=== PATIENT | male | born 1955 | race Caucasian/White ===

== ENCOUNTER → 2017-12-18 06:16 | Outpatient (CLI) | payer OTHER, SELFPAY ==
--- NOTE | 2017-12-18 12:19 | STRESSREP ---
Stress Test Report Exercise myocardial perfusion stress test. 62-year-old man with a history of coronary artery disease and chest pain. Stress protocol: Resting EKG demonstrates sinus rhythm with rate of 61 bpm. Resting blood pressure is 162/90 mmHg. The patient exercised according to regular Donnie protocol for total duration of 11 minutes and 30 seconds. Patient completed 2 minutes and 30 seconds to stage IV of the Donnie protocol. The maximum heart rate attained was 136 bpm which was 86% of maximum predicted heart rate the maximum workload attained was 13.5 metabolic equivalents. Patient maintained sinus rhythm throughout the recording with occasional premature atrial complexes noted. Occasional blocked atrial complexes noted also. At rest there were no ST or T-wave changes noted suggest ischemia peak exercise upsloping ST changes only were noted with normally the criteria for ischemia. Patient however complained of 3-4/10 chest tightness noted during exertion which dissipated on rest. The resting blood pressure is 162/90 with a peak blood pressure 180/84. Rate pressure product was 23,100. Myocardial perfusion protocol. 14.2 mCi of technetium 99m sestamibi was injected at rest. The patient exercised for 11 minutes and 30 seconds attaining 86% maximum predicted heart rate and a workload of 13.5 mets. At peak exercise 44.5 mCi of technetium 99m sestamibi was injected stress images were obtained stress and rest images were reconstructed and compared in the short axis vertical long and horizontal long axis. Gated images were also obtained. Perfusion SPECT analysis: There is a medium-sized defect noted in the mid to distal anteroseptal wall as well as the inferoseptal wall. There is a defect also noted in the apex of medium size. The resting images demonstrate improvement in the apex and distal anteroseptal wall suggestive of ischemia in this territory. Gated SPECT analysis: The gated ejection fraction is noted to be 60%. There is evidence of apical hypokinesis noted. Conclusion: Exercise myocardial perfusion stress test with evidence of distal anteroseptal and apical ischemia. Small apical infarct noted. Clinical angina noted at a high workload with excellent functional capacity..
== END ==
PROVIDERS: Family Provider Family Medicine; PCP Family Medicine; Visit Provider Family Medicine
DX: R07.89 Other chest pain (principal)
CPT/HCPCS: 78452; 93017; A9500; A4216

== ENCOUNTER → 2018-01-21 07:53 | Outpatient (CLI) | payer OTHER, SELFPAY ==
--- NOTE | 2018-01-21 08:13 | RAD_ITS ---
STUDY: X-RAY CHEST REASON FOR EXAM: Male, 62 years old. Chest discomfort. TECHNIQUE: PA and lateral views of the chest. COMPARISON: None. FINDINGS: The lungs are clear and expanded. There is no demonstrated pleural abnormality. Normal size heart. Normal mediastinum and dylan. Normal visualized pulmonary arteries. There is atherosclerotic tortuosity of the aortic arch and descending thoracic aorta. Normal visualized thoracic spine. Normal visualized ribs, clavicles, and shoulders. There is no demonstrated abnormality of the visualized soft tissue structures of the upper abdomen. RAD/Chest PA and Lateral IMPRESSION: No acute abnormality is seen. Electronically Signed: Enrrique Dunaway MD at 9:24 EDT Tel [phone], Service support ,
[2018-01-21 08:53] LABS: Hematocrit 44.4 % (40-54); Hemoglobin 15.5 g/dl (13.0-16.5); Mean Corp Hgb Conc 34.9 g/gl (32-36); Mean Corpuscular Volume 88.8 fL (80-94); Mean Platelet Vol. 9.7 fl (6.2-12.0); Platelet Count 177 K/mm3 (150-450); RBC Distribution Width CV 12.6 % (11.6-14.6); RBC Distribution Width SD 40.4 fl (35.1-43.9); White Blood Count 4.4 K/mm3 (4.4-11.0)
[2018-01-21 08:55] LABS: Scan Indicated on CBC? Y/N NO
[2018-01-21 09:26] LABS: Anion Gap 8 (5-15); BUN 13 mg/dL (7-18); Calcium,Total 8.7 mg/dL (8.5-10.1); Chloride 106 mmol/L (98-107); Creatinine, Serum 0.72 mg/dL (0.70-1.30); EST Glomerular Filtration Rate 117 mL/min (>60); Est Glom Filt Rate - Afr Amer 141 mL/min (>60); Glucose 159 mg/dL (74-106); Potassium 4.3 mmol/L (3.5-5.1); Sodium Level 143 mmol/L (136-145)
[2018-01-21 09:31] LABS: Vitamin D,25 Hydroxy 45.6 ng/mL (29.95-100.01)
[2018-01-21 09:33] LABS: Cholesterol 170 mg/dL (200); High Density Lipoprotein 53 mg/dL; Triglycerides 63 mg/dL; Very Low Density Lipoprotein 13 mg/dL (5-40)
[2018-01-21 09:35] LABS: Phenytoin (Dilantin) Level 6.8 mL (10.0-20.0)
[2018-01-21 17:29] LABS: Absolute Lymphocyte Count 1.57 X10^3/ul (0.83-4.51); Absolute Neutrophil Count 2.6 X10^3/uL (2.0-7.7); Basophil# 0.04 X10^3/uL; Basophil% 0.8 % (0-1); Eosinophil# 0.48 X10^3/uL; Eosinophils% 9.6 % (0-5); Hematocrit 44.1 % (40-54); Hemoglobin 15.3 g/dl (13.0-16.5); Lymphocyte # 1.57 X10^3/ul (4.0); Lymphocyte % 31.5 % (19-41); Mean Corp Hgb Conc 34.7 g/gl (32-36); Mean Corpuscular Hgb 30.7 pg (27.0-32.0); Mean Corpuscular Volume 88.4 fL (80-94); Mean Platelet Vol. 9.8 fl (6.2-12.0); Monocyte# 0.34 X10^3/uL; Monocyte% 6.8 % (0-10); Neutrophil # 2.55 X10^3/uL (2.7-7.7); Neutrophil % 51.3 % (47-70); Platelet Count 175 K/mm3 (150-450); RBC Distribution Width CV 12.7 % (11.6-14.6); RBC Distribution Width SD 40.8 fl (35.1-43.9); Red Blood Count 4.99 M/mm3 (4.6-6.2)
[2018-01-21 17:55] LABS: POSITIVE COUNT NO; POSITIVE DIFFERENTIAL NO; POSITIVE MORPHOLOGY NO
== END ==
PROVIDERS: Family Provider Family Medicine; PCP Family Medicine; Visit Provider Internal Medicine Cardiovascular Disease
DX: Z01.810 Encounter for preprocedural cardiovascular examination (principal); R07.9 Chest pain, unspecified; R94.39 Abnormal result of other cardiovascular function study; E11.9 Type 2 diabetes mellitus without complications; R06.00 Dyspnea, unspecified; I25.9 Chronic ischemic heart disease, unspecified; E55.9 Vitamin D deficiency, unspecified
CPT/HCPCS: 36415; 71046; 80048; 80061; 80185; 82306; 85025; 85027; 85610

== ENCOUNTER → 2018-01-23 06:48 | Day surgery (SDC) | payer OTHER, SELFPAY ==
[2018-01-22 09:05] VITALS: BMI 27.1
--- NOTE | 2018-01-23 08:47 | CASEMGMT ---
According to [employer] website, the following are in-network tertiary facilities: [facility], [facility], [facility], [facility], [facility], [facility], [facility], and . Lilliana GUILLEN CM
--- NOTE | 2018-01-23 08:50 | CL.D_ITS ---
Patient Name: GISSELL AMBRIZ Study Date: 01/23/2018 Performing: Bernardo Louis MD Ht: 66.14 inches 168 cm : 1955 Wt: 167.55 lbs 76 kg Age: 62 Gender: male BSA: 1.86 PROCEDURE(S) PERFORMED FT73-BIB/COR/LV CLINICAL PROFILE AND INDICATIONS Indications: Suspected CAD Heart Failure: None Stress/Imaging Stress Test w/SPECT MPI: Yes Result: Positive Intermediate RiskStress Test with SP ECT MPI: Positive Intermediate Risk Angina Classification Anginal Classification w/in 2 Weeks: CCS II CAD Presentations: Stable angina. CONCLUSIONS Totally occluded left anterior descending artery with severe disease involving the first and second d iagonal branches and moderate disease involving the circumflex artery. With preserved ejection fract ion. RECOMMENDATIONS Consider PCI with multiple vessel intervention including a chronically occluded left anterior descend ing artery or coronary artery bypass surgery DESCRIPTION OF PROCEDURE The patient arrived to the procedure lab. The risks and benefits of the procedure as well as a full d escription of our services here and current unavailability of surgical backup were fully explained to the patient and/or their significant other prior to the catheterization. The Timeout was completed, verifying the correct patient and procedure. The patient's procedural site was prepped and draped in the usual fashion. Local anesthetic was given subcutaneously to right groin region with Lidocaine 2%. Using a modified Seldinger technique, arterial access was obtained via the right femoral artery, a 5 Fr sheath was inserted. Left Coronary Artery selective angiography was performed in multiple views u sing a 5 Fr. JL4 catheter. Right Coronary Artery selective angiography was then performed in multiple views using a 5 Fr. 3DRC (Jeff) catheter. Left Ventriculography was performed in NORTON projection using a 5 Fr. Pigtail catheter. LV to AO pullback pressures were then recorded.The arterial sheath wa s pulled and a Mynx closure device was deployed for hemostasis CORONARY ANGIOGRAPHY DOMINANCE: Right Dominant LEFT HEART ASSESSMENT Left Ventricular Ejection Fraction: by LV Gram 55 % Normal LV wall motion Normal Left Ventricular systolic function LEFT MAIN: Angiographically normal LEFT ANTERIOR DECENDING ARTERY: MID LAD: is occluded DIAGONAL 1: Proximal - Diffusely diseased up to 80% long lesion DIAGONAL 2: Ostial - 80 CIRCUMFLEX ARTERY: OM 3: Proximal - 50 % Stenosis LT PDA: Left PDA: Proximal - 60 % Stenosis RIGHT CORONARY ARTERY: Mild luminal irregularities less than 30% RT PDA: Distal - 50 % Stenosis COLLATERAL FLOW: Collateral flow from Right to Left COMPLICATIONS No Complications PROCEDURE MEDICATIONS Fentanyl 50 mcg IV Versed 1 mg IV Versed 1 mg IV Oxygen: 2 L/min via nasal cannula SUMMARY OF HEMODYNAMIC DATA Time AIR REST ECG 07:08:11 AO 131/70 (95) SA 08:04:44 LV 159/-14, 19 08:13:01 LV 165/-13, 19 08:13:08 LV 158/-11, 18 08:14:21 LVp 153/-13, 19 08:14:26 AOp 161/74 (107) 08:14:31 Signed By Bernardo Louis MD On 01/23/2018 08:49:55 Bernardo Louis MD
== END ==
PROVIDERS: Family Provider Family Medicine; PCP Family Medicine; Visit Provider Internal Medicine Cardiovascular Disease
DX: I25.9 Chronic ischemic heart disease, unspecified (principal); I25.119 Atherosclerotic heart disease of native coronary artery with unspecified angina pectoris; I25.82 Chronic total occlusion of coronary artery; E11.9 Type 2 diabetes mellitus without complications; K21.9 Gastro-esophageal reflux disease without esophagitis; G40.909 Epilepsy, unspecified, not intractable, without status epilepticus; R94.39 Abnormal result of other cardiovascular function study; Z90.49 Acquired absence of other specified parts of digestive tract; Z79.84 Long term (current) use of oral hypoglycemic drugs; Z79.82 Long term (current) use of aspirin; Z79.899 Other long term (current) drug therapy
CPT/HCPCS: 93458; 99152; 99153; C1760; J7030; C1769; Q9967

== ENCOUNTER 2018-02-16 10:43 | Emergency (ER) | payer OTHER, SELFPAY ==
[2018-02-16] VITALS (7 sets, daily range): BP systolic 133–160; BP diastolic 66–90; PULSE 65–74; RESP 11–16; TEMP 36.6; O2SAT 95–98; BMI 26.8
--- NOTE | 2018-02-16 10:47 | EKG12_ITS ---
Test Reason : CHEST PAIN Blood Pressure : / mmHG Vent. Rate : 069 BPM Atrial Rate : 069 BPM P-R Int : 178 ms QRS Dur : 096 ms QT Int : 408 ms P-R-T Axes : 028 -09 038 degrees QTc Int : 437 ms Normal sinus rhythm Nonspecific ST and T wave abnormality Abnormal ECG Confirmed by GEE ELI, JEANETH ([id number]), script editor MARYAM ARIAS ([id number]) on 02/19/2018 1:07:27 PM Referred By: LAILA Confirmed By:JEANETH FLYNN MD
--- NOTE | 2018-02-16 10:55 | RAD_ITS ---
STUDY: X-RAY CHEST REASON FOR EXAM: Male, 62 years old. Chest pain, shortness of breath TECHNIQUE: Single AP portable view of the chest. COMPARISON: 01/21/2018. FINDINGS: The lungs are clear and expanded. There is no demonstrated pleural abnormality. Normal size heart. Normal mediastinum and dylan. Normal visualized pulmonary arteries. Normal visualized aortic arch and descending thoracic aorta. Normal visualized thoracic spine. Normal visualized ribs, clavicles, and shoulders. There is no demonstrated abnormality of the visualized soft tissue structures of the upper abdomen. RAD/Chest 1 View (Portable) IMPRESSION: No acute cardiopulmonary disease. Electronically Signed: Shane Espino DO at 11:25 EDT , Service support ,
--- NOTE | 2018-02-16 11:08 | ED.DCSUM_ITS ---
- ER Visit Summary Date of Service: 02/16/18 Chief Complaint: [] Chest pain began last night history of CAD scheduled to see cardiothoracic surgeon for CABG History of Present Illness: The patient is a 62 M [] he was diagnosed with 3-5 vessel CAD in January he scheduled to see a cardiothoracic surgeon at [facility], he indicates last night he began having chest pressure it persisted into the morning for the time he came in for evaluation, use of the chest pain does not last long he is on no specific medication such as nitroglycerin for the chest pain, he took aspirin came into the emergency department the pain is currently 4 out of 10 he states he feels better, he has diabetes is well controlled otherwise he has no other past history is no history of MT PE or DVT normal kidneys Physical Examination: [] Vital signs are within normal range is in no distress head neck chest unremarkable lungs are clear heart tones are normal abdomen soft nontender pulses symmetric lower extremities are without cyanosis clubbing or edema neurologically is awake alert moving all 4 Test Results: [] Emergency Department Course and Treatment: [] EKG shows nothing acute sinus rhythm he will be treated with full strength aspirin morphine screening 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 Андрей Russ believes the patient should be transferred to [facility] for definitive management, agreed with heparin no Brilinta as as of yet the patient's feeling better we have repeated his EKG it is pending he understands need for transfer, we have discussed the case with [facility] they agree to transfer Treatment Plan: [] Disposition: [] Transfer to [facility] Impression: [] Non-STEMI MT, history of 5 vessel CAD MT diabetes This note was generated with [employer] dictation software. It may contain incorrect words, spelling, and punctuation that were not noted in review of the chart prior to signing ED Disposition - Plan for ED Patient: Chief Complaint: Chest Pain Referrals: Roby Nichols MD [Primary Care Provider] -
[2018-02-16] MEDS: Ondansetron 4 MG/2 ML Vial IV (11:15)
[2018-02-16] MEDS: morphine 8 MG/ML Syringe IV (11:15)
[2018-02-16] MEDS: Aspirin 81 MG TAB.CHEW 324 MG PO (11:15)
[2018-02-16] MEDS: 0.9% Normal Saline 1,000 ML 30 ML IV (11:15)
[2018-02-16 11:17] LABS: Absolute Lymphocyte Count 0.91 X10^3/ul (0.83-4.51); Absolute Neutrophil Count 5.9 X10^3/uL (2.0-7.7); Basophil# 0.01 X10^3/uL; Basophil% 0.1 % (0-1); Eosinophil# 0.16 X10^3/uL; Eosinophils% 2.1 % (0-5); Hematocrit 44.4 % (40-54); Hemoglobin 15.3 g/dl (13.0-16.5); Lymphocyte # 0.91 X10^3/ul (4.0); Lymphocyte % 12.2 % (19-41); Mean Corp Hgb Conc 34.5 g/gl (32-36); Mean Corpuscular Hgb 30.5 pg (27.0-32.0); Mean Corpuscular Volume 88.4 fL (80-94); Mean Platelet Vol. 9.2 fl (6.2-12.0); Monocyte% 6.7 % (0-10); Neutrophil # 5.86 X10^3/uL (2.7-7.7); Neutrophil % 78.8 % (47-70); Platelet Count 157 K/mm3 (150-450); RBC Distribution Width CV 12.6 % (11.6-14.6); RBC Distribution Width SD 40.3 fl (35.1-43.9); Red Blood Count 5.02 M/mm3 (4.6-6.2); White Blood Count 7.5 K/mm3 (4.4-11.0)
[2018-02-16 11:18] LABS: POSITIVE COUNT NO; POSITIVE DIFFERENTIAL NO; POSITIVE MORPHOLOGY NO
[2018-02-16 11:37] LABS: Anion Gap 7 (5-15); BUN 8 mg/dL (7-18); BUN/Creat Ratio 11.3 RATIO (10-20); Calcium,Total 9.4 mg/dL (8.5-10.1); Chloride 102 mmol/L (98-107); Creatinine, Serum 0.71 mg/dL (0.70-1.30); EST Glomerular Filtration Rate 119 mL/min (>60); Est Glom Filt Rate - Afr Amer 144 mL/min (>60); Estimated Creatinine Clearance 97.35 ml/min; Glucose 180 mg/dL (74-106); Potassium 3.7 mmol/L (3.5-5.1); Sodium Level 137 mmol/L (136-145)
--- NOTE | 2018-02-16 11:37 | NURSING ---
PER LAB TROPONIN IS 13.9, DR PENA MADE AWARE.
[2018-02-16 11:43] LABS: BNP,B-Type NATRIURETIC PEPTIDE 235.8 pg/mL (0-100)
--- NOTE | 2018-02-16 11:43 | EKG12_ITS ---
Test Reason : REPEAT Blood Pressure : / mmHG Vent. Rate : 063 BPM Atrial Rate : 063 BPM P-R Int : 188 ms QRS Dur : 094 ms QT Int : 420 ms P-R-T Axes : 045 -09 065 degrees QTc Int : 429 ms Poor data quality, interpretation may be adversely affected Normal sinus rhythm Septal infarct , age undetermined Abnormal ECG Confirmed by JEANETH FLYNN MD ([id number]), news videotape editor MARYAM ARIAS ([id number]) on 02/19/2018 1:07:43 PM Referred By: LAILA Confirmed By:JEANETH FLYNN MD
[2018-02-16] MEDS: Heparin Injection 5,000 UNITS/ML Syringe 5000 UNITS IV (11:58)
[2018-02-16] MEDS: HEPARIN/D5w 25,000 UNITS 25,000 UNITS/250 ML IV.SOLN. 11 UNITS IV (11:58)
[2018-02-16] MEDS: Nitroglycerin Oint 1 INCH PACKET TRANSDERM. (12:52)
== END 2018-02-16 14:20 | disposition short-term general hospital (02) ==
PROVIDERS: Emergency Provider Emergency Medicine; Family Provider Family Medicine; PCP Family Medicine
DX: I21.4 Non-ST elevation (NSTEMI) myocardial infarction (principal); I25.10 Atherosclerotic heart disease of native coronary artery without angina pectoris; R07.9 Chest pain, unspecified; E11.9 Type 2 diabetes mellitus without complications; Z86.79 Personal history of other diseases of the circulatory system; Z79.82 Long term (current) use of aspirin; Z79.84 Long term (current) use of oral hypoglycemic drugs
CPT/HCPCS: 71045; 80048; 83880; 84484; 85025; 93005; 96365; 96366; 96368; 96375; 99285; J7030; A4216; J2405

== ENCOUNTER → 2018-03-21 12:45 | Outpatient (CLI) | payer OTHER, SELFPAY ==
--- NOTE | 2018-03-21 12:55 | PCM.CR.HP2 ---
CR - History & Physical - General Arrival date:: 03/21/18 Arrival time:: 12:55 Date of Referral:: 03/21/18 Date of CR Evaluation:: 03/21/18 Referring Physician: Dr. Edi Louis Primary Diagnosis: CABG x 4 - History of Present Cardiac Event Onset Date: Enter Onset Date of cardiac illnesses in Comment field below Current stable Angina Pectoris:: Yes - 02/16/18 Acute Myocardial Infarction within 12 months:: Yes - 02/16/18 Coronary Artery Bypass Graft:: Yes - x 4 02/18/18 Heart valve replacement or repair:: No PTCA or coronary stenting:: No Heart or Heart-Lung Transplant:: No Heart Failure EF <35%:: No Type of Symptoms:: Chest pain Interventions with present event:: Stress test, heart cath, CABG Were there any complications?: no - Medications Home Medications: Ambulatory Orders Medication Instructions Recorded aspirin 81 mg tablet,delayed 81 mg PO QDAY tab 01/15/18 release metformin ER 500 mg 1,000 mg PO BID 90 Days #360 tab 01/15/18 tablet,extended release 24 hr multivitamin tablet 1 tab PO QDAY 01/15/18 omega-3 fatty acids 1,000 mg 1,000 mg PO QDAY 01/15/18 capsule phenytoin sodium extended 100 mg 100 mg PO .COMPLEX 90 Days cap 01/16/18 capsule Acetaminophen [Non-Aspirin] 325 mg PO Q6H PRN PRN 03/21/18 Atorvastatin Calcium [Lipitor] 80 mg PO QHS 03/21/18 Clopidogrel Bisulfate [Plavix] 75 mg PO DAILY 03/21/18 Metoprolol Tartrate [Lopressor 50 mg PO BID 03/21/18 (Beta Marita)] Sitagliptin Phosphate [Januvia] 100 mg PO DAILY 03/21/18 - Allergies Allergies/Adverse Reactions: Allergies No Known Allergies Allergy (Verified 02/16/18 10:44) - Sleep Disorder Evaluation Hx of Sleep Apnea: No Do you snore loudly (louder than talking or can be heard through closed doors)?: No Do you often feel tired/ fatigued/ sleepy during daytime?: No Has anyone observed you stop breathing during sleep?: No History of Hypertension (for STOP score): No STOP Results: Negative Advanced Directives - Advanced Directives Power of It Sales Representative: No Living Will: No Advance Directives Information Provided: Yes Advance Directives on File: No DNR Order?:: No Past Medical History - Past Medical Illness Medical History: Past Medical History (Last Reviewed 01/16/18 @ 16:56 by Bernardo Louis MD) GERD (gastroesophageal reflux disease) (Chronic) K21.9 Type 2 diabetes mellitus without complications (Chronic) E11.9 Seizure disorder (Chronic) G40.909 Dyspnea (Acute) R06.00 Chest pain (Acute) R07.9 Abnormal cardiovascular stress test (Acute) R94.39 - Past Surgical History Surgical History: Past Surgical History (Last Reviewed 01/16/18 @ 16:56 by Bernardo Louis MD) History of colonoscopy (Chronic) Z98.890 2007 History of cholecystectomy (Chronic) Z90.49 - Family History Summary Family History: Family History (Last Reviewed 01/16/18 @ 16:56 by Bernardo Louis MD) Mother , age 89 Hypertension Father , age 60's from rare neurological condition No problems noted. Brother CAD (coronary artery disease) Stented coronary artery Social History - Smoking History Smoking Status: Never smoker - Alcohol Use Alcohol Usage: Yes - once a month maybe - Substance Abuse Hx Substance Use: No - Occupation Occupation (List type of work in comments):: Retired - Hobbies, Recreation, Social Activities Hobbies: Other - gardening Recreational Activities: I am able to engage in a few activities Social Environment - Status Marital Status: - Current Living Arrangements Living Environment:: Spouse - Children How many children do you have?: 2 Do any of your children live nearby?: No - Safety Do you feel safe in your surroundings?: Yes - Assistance Do you need any assistance at home?: mowing right now. Review of Systems - Review of Systems Hints: Right click = Denies (Slash). Left click = Reports ([place]) Review of Present Symptoms: Reports: Operative Discomfort - 1 on a 1:10 scale, Fatigue, Appetite - Normal - no desire to eat right now., Appetite - Special Diet - Cardiac Diabetic diet., Sleep - Normal. Denies: Shortness of Breath at Rest, Shortness of Breath with Exertion, PVD, Angina, Wound Healing, Dizziness/Lightheadedness, Heart Arrhythmia/Irregularities, Sexual Changes - Pain Is Patient Pain Free?: No Pain Location: chest Pain Level: 1/10 Previous experience dealing with pain?: Tylenol prn pain. Risk Factor Assessment - Chief Complaint Chief Complaint: Bored and wants to do stuff. - Pulse Pulse Rate: 80 Pulse Rhythm: Regular - Hypertension Blood Pressure Sitting - Right Arm: 120/86 Blood Pressure Sitting - Left Arm: 114/82 - Blood Cholesterol/Lipids Total Cholesterol (mg/dL) Goal = less than 200 mg/dL: 169 HDL Cholesterol (mg/dL) Goal = less than 40 mg/dL: 61 LDL Cholesterol (mg/dL) Goal = less than 70 mg/dL: 96 - Diabetes Diabetic History: Type II, Medication Dependent Nutrition Referral for Diabetes: Yes - Obesity Height: 1.68 m Weight:: 68.039 kg Weight in Pounds: 150.0 lbs Weight Source: Standing Scale Body Mass Index (BMI): 24.2 Nutritional Referral for Obesity: No - Physical Inactivity Physical Inactivity: Reg Exercise 30 min/day - Risk Stratification Risk Guidelines: Lowest Risk: Risk Factor for Smoking, Risk Factor for Dyslipidemia, Risk Factor for Obesity, Risk Factor for Hypertension, Risk Factor for Sedentary Lifestyle, Risk Factor for Depression, Moderate Risk: Risk Factor for Diabetes - For Smoking Smoking Risk Guidelines: Smoking Low Risk: None or quit greater than 6 months ago. Smoking Moderate Risk: Smoker or quit 6 months or less ago. Smoking High Risk: Smoker - For Dyslipidemia Dyslipidemia Risk Guidelines: Low Risk: Moderate Risk: High Risk: 15-25% fat 25.1-29% fat >/= 30% fat. <7% sat fat 7-9% sat fat >9% sat fat. <150 mg chol 150-299 mg chol >/= 300 mg chol. LDL <100 LDL 100-129 LDL >/= 130. Chol/HDL ratio <5.0 Chol/HDL ratio 5.0-6.0 Chol/HDL ratio >6.0. Triglycerides <100 Triglycerides 100-149 Triglycerides >/= 150 - For Diabetes Mellitus Diabetes Risk Guidelines: Diabetes Low Risk: HgA1c <6.5% and/or FBG <120. Diabetes Moderate Risk: HgA1c 6.6-7.9% and/or FBG 120-180. Diabetes High Risk: HgA1c >/= 8% and/or FBG >180 - For Obesity/Overweight Obesity/Overweight Risk Guidelines: Obesity Low Risk: BMI <25.0. Obesity Moderate Risk: BMI 25-29.9. Obesity High Risk: BMI >/= 30.0 - For Hypertension Hypertension Risk Guidelines: Hypertension Low Risk: Systolic <120 and Diastolic <80. Hypertension Moderate Risk: Systolic 120-139 and Diastolic 80-89. Hypertension High Risk: Systolic >/= 140 and Diastolic >/= 90 - For Sedentary Lifestyle Sedentary Lifestyle Risk Guidelines: Sedentary Lifestyle Low Risk: >/= 1,500 kcal/week. Sedentary Lifestyle Moderate Risk: 700-1,499 kcal/week. Sedentary Lifestyle High Risk: < 700 kcal/week - For Depression Depression Risk Guidelines: Depression Low Risk: Not clinically depressed. Depression Moderate Risk: Mildly depressed. Depression High Risk: Clinically depressed - Family History Family History: Family History (Last Reviewed 01/16/18 @ 16:56 by Bernardo Louis MD) Mother Hypertension Father No problems noted. Brother CAD (coronary artery disease) Stented coronary artery Motivation - Motivation to Participate On a scale of 1 to 10, how prepared are you to commit to attending program?: 8
--- NOTE | 2018-03-21 13:05 | CR.ITP_ITS ---
General Information - General Information Admitting Diagnosis: CABG x 4 - Education/Goals Barriers to Learning: None Cardiac Rehabilitation Goals: 1. Maintain the individual as the primary focus of care. 2. To improve the patient's quality of life. 3. Identification of cardiac risk factors and provide cardiac risk factor management. 4. Enhance the psychosocial status of the patient. 5. Reconditioning enough to allow the patient to resume customary activities. 6. Control symptoms of cardiac disease Scale for measuring improvement of personal goals: Enter appropriate number in Comments. 2 = Unchanged. 3 = Slightly Better. 4 = Moderate Improvement. 5 = Met my Goal Personal Goals: Initial Assessment: Improve energy level, Participate in home exercise program, Get back to work, or to resume activities faster, Improve knowledge of cardiac disease, Improve muscle strength and endurance, Improve diet and eating habits (eat healthier), Control risk factors (learn risk factor modification) Nutrition - Initial Assessment - Program Goals Nutrition Program Goals: LDL <70. Total Cholesterol <200. HDL >45. Triglycerides <150. HgbA1C <7%. BMI <25 - Visit Date of Assessment:: 03/21/18 - Stages of Change Stages of Change:: Action - Lipids Total Cholesterol (mg/dL) Goal = less than 200 mg/dL: 169 HDL Cholesterol (mg/dL) Goal = less than 45 mg/dL: 61 LDL Cholesterol (mg/dL) Goal = less than 70 mg/dL: 96 - Diabetes Diabetes:: Yes Insulin: Yes Non-Insulin Dependent?: Yes Do you monitor your blood sugar at home?: Yes - Weight Management Height: 1.68 m Weight:: 71.668 kg Body Fat %:: 25.5 Goal % Body Fat:: 24 - Intervention Referral to dietitian:: Yes Referral to Diabetic Clinic:: Yes Will attend diet classes:: Yes - Education Gave educational materials for:: Signs & symptoms of hypoglycemia, Signs & symptoms of hyperglycemia, Relate diabetes to coronary artery disease, Healthy eating Tobacco - Initial Assessment - Program Goals Tobacco Program Goals: Complete smoking cessation. Attend education classes. Improve Knowledge Test score - Stage of Change Stages of Change:: Maintenance - Learning Barriers Learning Barriers: Ready to Learn Total Score:: 13 - Family Support Do you have family support?: Yes - Tobacco Use Tobacco Use: Non-smoker Do you use smokeless tobacco?: No - Intervention Smoking Cessation Referral:: No Individual Education/Counseling:: No Education Schedule Given:: Yes - Education Gave educational material for:: Coronary artery disease, Risk factors, Sexuality , Medical compliance, Cardiac A&P, Angina signs & symptoms Psychosocial - Initial Assess - Target Goals Target Goals: Assess presence or absence of depression. Using a valid screening tool, maximizes coping skills. Positive support system - Stages of Change Stages of Change:: Action - Psychosocial Test Tool Used:: HANDS Depression Questionnaire Self-reported stress:: no Total Mood Screening Score:: 7 Self-Efficacy Score:: 6 - Intervention PS - Interventions: Yes Attend Stress Management Classes, Yes Uses Stress Management Skills, No Referral to Mental Health, No Referral to [facility] Case Management, No Referral to Physician - Education Gave educational materials for:: Coping techniques, Signs & symptoms of depression, Stress management, Relaxation techniques - Patient/Program Goal Preventative Medication(s):: BEE inhibitor, Clopidogrel, Beta radha, Statin/ lipid - Assistive Devices Assistive Devices:: None Fall Risk Assessed:: Yes Patient Health Questionnaire Initial Assessment 1. Little interest or pleasure in doing things: More than half the days 2. Feeling down, depressed, or hopeless: Several days 3. Trouble falling or staying asleep, or sleeping too much: Not at all 4. Feeling tired or having little energy: Several days 5. Poor appetite or overeating: Several days 6. Feeling bad about yourself -- or that you are a failure or have let yourself or your family down: Several days 7. Trouble concentrating on things, such as reading the newspaper or watching television: Several days 8. Moving or speaking so slowly that other people could have noticed. Or the opposite - being so fidgety or restless that you have been moving around a lot more than usual: Not at all 9. Thoughts that you would be better off , or of hurting yourself in some way: Not at all How difficult have these problems made it for you to do your work, take care of things at home, or get along with other people?: Very difficult Total Score: 7 ANGEL-Q SV Test - Statements CAD is a disease of the arteries in the heart: False Examples of risk factors for heart disease: True Angina is chest pain or discomfort: True The benefits of resistance training include: True Eating more meat and dairy products: False Anti-platelet medications such as aspirin are important: True The only effective way to manage stress: False An exercise warm-up slowly increases heart rate: I Don't Know Prepared, processed foods usually have high sodium: True Depression is common after a heart attack: I Don't Know The statin medications lower cholesterol: True To control blood pressure, lower the amount of sodium: I Don't Know If someone gets chest discomfort during walking: False Transfats are partially hydrogenated vegetable oils: I Don't Know Sleep apnea that is not treated increases the risk: I Don't Know To control cholesterol, one should become a vegetarian: False Someone knows if he/she is exercising at the right level: True Diabetes cannot be prevented with exercise & health eating: I Don't Know Stress is a large risk for heart attack: I Don't Know A diet that can help lower blood pressure is rich in: True - Total Score Total Correct Responses: 13 Self-Efficacy Initial Assessment We would like to know how confident you are in doing certain activities. Please select your confidence level for:: Select your confidence level for the following using the scale 1-10 where 1 is not at all confident and 10 is totally confident. Your score is the average of all 6 responses. Fatigue: How confident are you that you can keep the fatigue caused by your disease from interfering with the things you want to do? Select Number: 5 Physical Discomfort or Pain: How confident are you that you can keep the physical discomfort or pain of your disease from interfering with the things you want to do? Select Number: 6 Emotional Distress: How confident are you that you can keep the emotional distress caused by your disease from interfering with the things you want to do? Select Number: 6 Other Symptoms or Health Problems: How confident are you that you can keep other symptoms or health problems from interfering with the things you want to do? Select Number: 7 Different Tasks and Activities: How confident are you that you can do the different tasks and activities needed to manage your health condition so as to reduce your need to see a doctor? Select Number: 6 Medication: How confident are you that you can do things other than just taking medication to reduce how much your illness affects your everyday life? Select Number: 7 Total Score:: 6 Nutrition Survey - Nutrition Survey Instructions Scoring Instructions: Scoring is as follows: Yes = 1 points. No = 0 point. Patient score that is >/=12 is considered to be at potential nutritional risk and could benefit from a referral to a registered dietitian. - Nutrition Survey Initial Have you lost >10 lbs over the past 2 months without trying?: Yes Are you following a special diet at home for diabetes, low fat, or low salt?: Yes Are you interested in meeting with a dietitian for help understanding your diet? : Yes Do you eat less than 3 meals a day?: Yes Do you eat fatty meats (worley, sausage, ribs, etc), fried foods, desserts, large amounts of salad dressings, margarine, butter, or cheese most days?: Yes Do you have food allergies? [Enter types in comment field]: Yes Do you eat in restaurants more than 3 times a week?: Yes Do you season food with salt, seasoning salt, or garlic salt?: Yes Do you used canned, boxed, frozen meals, or soups, seasoning packets?: Yes Total Score:: 9
[2018-03-21 14:20] VITALS: BP 114/82; BP 120/86; PULSE 80; BMI 24.2
== END ==
PROVIDERS: Family Provider Family Medicine; PCP Family Medicine; Visit Provider Internal Medicine Cardiovascular Disease
DX: R07.9 Chest pain, unspecified (principal); Z95.1 Presence of aortocoronary bypass graft; K21.9 Gastro-esophageal reflux disease without esophagitis; E11.9 Type 2 diabetes mellitus without complications; G40.909 Epilepsy, unspecified, not intractable, without status epilepticus; R94.39 Abnormal result of other cardiovascular function study; R06.00 Dyspnea, unspecified; Z90.49 Acquired absence of other specified parts of digestive tract; Z79.82 Long term (current) use of aspirin; Z79.84 Long term (current) use of oral hypoglycemic drugs; Z79.899 Other long term (current) drug therapy

== ENCOUNTER 2018-04-05 13:00 | Outpatient (RCR) | payer OTHER, SELFPAY ==
--- NOTE | 2018-03-29 14:10 | PCM.CR.ITP ---
Exercise - 30-day Assessment - Visit Date of Eval: 03/29/18 - patient hsa only had 3 sessions - Stages of Change Stages of Change:: Action - Exercise Prescription Mode:: Treadmill, Rower, Airdyne, NuStep Frequency (x/week): 3 Duration:: 30 Target Heart Rate:: 118-126 - Hypertension Resting Blood Pressure:: 124/86 Peak Exercise Blood Pressure:: 142/80 Medication Changes:: No - Intervention Home Exercise/Activity Goal:: Moderate Exercise 30 min/day x 5 days/wk - Education Goals:: Warm-up, RPE HASMUKH Scale, S/S, Safe Exercise, Self-Monitoring - Exercise Program Goals Exercise Program Goals: Aerobic Activity >30 min Nutrition - Initial Assessment - Program Goals Nutrition Program Goals: LDL <70. Total Cholesterol <200. HDL >45. Triglycerides <150. HgbA1C <7%. BMI <25 - Diabetes Do you monitor your blood sugar at home?: Yes Nutrition - 30-Day Assessment - Program Goals Nutrition Program Goals: LDL <70. Total Cholesterol <200. HDL >45. Triglycerides <150. HgbA1C <7%. BMI <25 - Visit Date of Eval: 03/29/18 - Stages of Change Stages of Change:: Action - Lipids Has the patient seen the dietitian?: No - Diabetes Diabetes:: Yes Random Blood Glucose:: 159 - Weight Management Weight:: 151 lb - patinet has dropped 7 pounds - Intervention Referral to dietitian:: Yes Referral to Diabetic Clinic:: Yes Will attend diet classes:: Yes - Education Attended class for:: Healthy eating Tobacco - Initial Assessment - Program Goals Tobacco Program Goals: Complete smoking cessation. Attend education classes. Improve Knowledge Test score - Learning Barriers Learning Barriers: Ready to Learn Tobacco - 30-Day Assessment - Program Goals Tobacco Program Goals: Complete smoking cessation. Attend education classes. Improve Knowledge Test score - Stage of Change Stages of Change:: Action - Learning Barriers Learning Barriers: Participates in education - Family Support Do you have family support?: Yes - Tobacco Use Tobacco Use: Non-smoker - Intervention Smoking Cessation Referral:: No Education Schedule Given:: Yes - Education Attended class for:: Tobacco triggers, Coronary artery disease, Risk factors, Sexuality, Medical compliance, Cardiac A&P, Angina signs & symptoms Psychosocial - Initial Assess - Target Goals Target Goals: Assess presence or absence of depression. Using a valid screening tool, maximizes coping skills. Positive support system - Psychosocial Test Tool Used:: HANDS Depression Questionnaire - Assistive Devices Fall Risk Assessed:: Yes Patient Health Questionnaire 30-Day Re-eval Assessment 1. Little interest or pleasure in doing things: More than half the days 2. Feeling down, depressed, or hopeless: Several days 3. Trouble falling or staying asleep, or sleeping too much: Not at all 4. Feeling tired or having little energy: Several days 5. Poor appetite or overeating: Several days 6. Feeling bad about yourself -- or that you are a failure or have let yourself or your family down: Several days 7. Trouble concentrating on things, such as reading the newspaper or watching television: Several days 8. Moving or speaking so slowly that other people could have noticed. Or the opposite - being so fidgety or restless that you have been moving around a lot more than usual: Not at all 9. Thoughts that you would be better off , or of hurting yourself in some way: Not at all How difficult have these problems made it for you to do your work, take care of things at home, or get along with other people?: Very difficult Total Score: 7 Self-Efficacy 30-Day Re-eval Assessment We would like to know how confident you are in doing certain activities. Please select your confidence level for:: Select your confidence level for the following using the scale 1-10 where 1 is not at all confident and 10 is totally confident. Your score is the average of all 6 responses. Fatigue: How confident are you that you can keep the fatigue caused by your disease from interfering with the things you want to do? Select Number: 5 Physical Discomfort or Pain: How confident are you that you can keep the physical discomfort or pain of your disease from interfering with the things you want to do? Select Number: 6 Emotional Distress: How confident are you that you can keep the emotional distress caused by your disease from interfering with the things you want to do? Select Number: 6 Other Symptoms or Health Problems: How confident are you that you can keep other symptoms or health problems from interfering with the things you want to do? Select Number: 7 Different Tasks and Activities: How confident are you that you can do the different tasks and activities needed to manage your health condition so as to reduce your need to see a doctor? Select Number: 6 Medication: How confident are you that you can do things other than just taking medication to reduce how much your illness affects your everyday life? Select Number: 7 Total Score:: 6
[2018-03-29 14:17] VITALS: BP 124/86; BP 142/80
== END 2018-04-06 23:59 ==
LOC: CR 13:00
PROVIDERS: Family Provider Family Medicine; PCP Family Medicine; Visit Provider Internal Medicine Cardiovascular Disease
DX: Z95.1 Presence of aortocoronary bypass graft (principal)
CPT/HCPCS: 93798

== ENCOUNTER 2018-04-11 12:47 | Outpatient (RCR) | payer OTHER, SELFPAY | END 2018-05-07 23:59 | LOC: DC 12:47 | PROVIDERS: Family Provider Family Medicine; PCP Family Medicine; Visit Provider Internal Medicine Cardiovascular Disease | DX: E11.9 Type 2 diabetes mellitus without complications (principal); Z71.3 Dietary counseling and surveillance | CPT/HCPCS: 97802; G0108 ==

== ENCOUNTER 2018-05-06 10:15 | Outpatient (RCR) | payer OTHER, SELFPAY ==
[2018-04-07 01:11] VITALS: BP 124/86; BP 142/80
[2018-05-01 14:15] VITALS: BP 119/72; BP 160/98
--- NOTE | 2018-05-01 14:16 | CR.ITP_ITS ---
Exercise - 60-Day Assessment - Visit Date of Eval: 05/01/18 Session #:: 16 - Stages of Change Stages of Change:: Action - Exercise Prescription Mode:: Treadmill, Rower, Airdyne, NuStep Frequency (x/week): 3 Duration:: 30 METs: 6 Target Heart Rate:: 118-126 - Hypertension Resting Blood Pressure:: 119/72 Peak Exercise Blood Pressure:: 160/98 Medication Changes:: No - Intervention Home Exercise/Activity Goal:: Moderate Exercise 30 min/day x 5 days/wk - Education Goals:: Warm-up, RPE HASMUKH Scale, S/S, Safe Exercise, Self-Monitoring - Exercise Program Goals Exercise Program Goals: Aerobic Activity >30 min Nutrition - Initial Assessment - Program Goals Nutrition Program Goals: LDL <70. Total Cholesterol <200. HDL >45. Triglycerides <150. HgbA1C <7%. BMI <25 - Diabetes Do you monitor your blood sugar at home?: Yes Nutrition - 60-Day Assessment - Program Goals Nutrition Program Goals: LDL <70. Total Cholesterol <200. HDL >45. Triglycerides <150. HgbA1C <7%. BMI <25 - Visit Date of Eval: 05/01/18 - Stages of Change Stages of Change:: Action - Lipids Has the patient seen the dietitian?: Yes - Diabetes Diabetes:: No Insulin: No Non-Insulin Dependent?: No - Weight Management Weight:: 153 lb - Intervention Referral to dietitian:: No Referral to Diabetic Clinic:: No Will attend diet classes:: Yes - Education Attended class for:: Healthy eating Tobacco - Initial Assessment - Program Goals Tobacco Program Goals: Complete smoking cessation. Attend education classes. Improve Knowledge Test score - Learning Barriers Learning Barriers: Ready to Learn Tobacco - 60-Day Assessment - Program Goals Tobacco Program Goals: Complete smoking cessation. Attend education classes. Improve Knowledge Test score - Stage of Change Stages of Change:: Action - Learning Barriers Learning Barriers: Participates in education - Family Support Do you have family support?: Yes - Tobacco Use Tobacco Use: Non-smoker Do you use smokeless tobacco?: No - Intervention Smoking Cessation Referral:: No Individual Education/Counseling:: No Education Schedule Given:: Yes - Education Attended class for:: Coronary artery disease, Risk factors, Sexuality, Medical compliance, Cardiac A&P, Angina signs & symptoms Psychosocial - 60-Day Assess - Target Goals Target Goals: Assess presence or absence of depression. Using a valid screening tool, maximizes coping skills. Positive support system - Stages of Change Stages of Change:: Action - Psychosocial Test Tool Used:: HANDS Depression Questionnaire - Intervention PS - Interventions: Yes Attend Stress Management Classes, No Referral to Mental Health, No Referral to [facility] Case Management, No Referral to Physician, No Uses Stress Management Skills - Education Attended classes for:: Coping techniques, Signs & symptoms of depression, Stress management, Relaxation techniques - Patient/Program Goal Preventative Medication(s):: Aspirin, Clopidogrel, Beta radha, Statin/lipid - Assistive Devices Assistive Devices:: None Fall Risk Assessed:: Yes Patient Health Questionnaire 60-Day Re-eval Assessment 1. Little interest or pleasure in doing things: More than half the days 2. Feeling down, depressed, or hopeless: Several days 3. Trouble falling or staying asleep, or sleeping too much: Not at all 4. Feeling tired or having little energy: Several days 5. Poor appetite or overeating: Not at all 6. Feeling bad about yourself -- or that you are a failure or have let yourself or your family down: Not at all 7. Trouble concentrating on things, such as reading the newspaper or watching television: Not at all 8. Moving or speaking so slowly that other people could have noticed. Or the opposite - being so fidgety or restless that you have been moving around a lot more than usual: Not at all 9. Thoughts that you would be better off , or of hurting yourself in some way: Not at all How difficult have these problems made it for you to do your work, take care of things at home, or get along with other people?: Not difficult at all Total Score: 4 Self-Efficacy 60-Day Re-eval Assessment We would like to know how confident you are in doing certain activities. Please select your confidence level for:: Select your confidence level for the following using the scale 1-10 where 1 is not at all confident and 10 is totally confident. Your score is the average of all 6 responses. Fatigue: How confident are you that you can keep the fatigue caused by your disease from interfering with the things you want to do? Select Number: 6 Physical Discomfort or Pain: How confident are you that you can keep the physical discomfort or pain of your disease from interfering with the things you want to do? Select Number: 7 Emotional Distress: How confident are you that you can keep the emotional distress caused by your disease from interfering with the things you want to do? Select Number: 7 Other Symptoms or Health Problems: How confident are you that you can keep other symptoms or health problems from interfering with the things you want to do? Select Number: 8 Different Tasks and Activities: How confident are you that you can do the different tasks and activities needed to manage your health condition so as to reduce your need to see a doctor? Select Number: 7 Medication: How confident are you that you can do things other than just taking medication to reduce how much your illness affects your everyday life? Select Number: 8 Total Score:: 7
== END 2018-05-07 23:59 ==
LOC: CR 10:15
PROVIDERS: Family Provider Family Medicine; PCP Family Medicine; Visit Provider Internal Medicine Cardiovascular Disease
DX: Z95.1 Presence of aortocoronary bypass graft (principal)
CPT/HCPCS: 93798

== ENCOUNTER 2018-05-09 17:03 | Outpatient (RCR) | payer OTHER, SELFPAY | END 2018-06-07 23:59 | LOC: DC 17:03 | PROVIDERS: Family Provider Family Medicine; PCP Family Medicine; Visit Provider Internal Medicine Cardiovascular Disease | DX: E11.9 Type 2 diabetes mellitus without complications (principal); Z71.3 Dietary counseling and surveillance | CPT/HCPCS: 97803; G0109 ==

== ENCOUNTER 2018-06-07 10:15 | Outpatient (RCR) | payer OTHER, SELFPAY ==
[2018-05-08 01:06] VITALS: BP 119/72; BP 160/98
[2018-05-31 11:47] VITALS: BP 106/68; BP 166/84
--- NOTE | 2018-05-31 11:47 | CR.ITP_ITS ---
General Information - General Information Admitting Diagnosis: CABG - Education/Goals Cardiac Rehabilitation Goals: 1. Maintain the individual as the primary focus of care. 2. To improve the patient's quality of life. 3. Identification of cardiac risk factors and provide cardiac risk factor management. 4. Enhance the psychosocial status of the patient. 5. Reconditioning enough to allow the patient to resume customary activities. 6. Control symptoms of cardiac disease Scale for measuring improvement of personal goals: Enter appropriate number in Comments. 2 = Unchanged. 3 = Slightly Better. 4 = Moderate Improvement. 5 = Met my Goal Exercise - 90-Day Assessment - Visit Date of Eval: 05/31/18 Session #:: 28 - Stages of Change Stages of Change:: Action - Exercise Prescription Mode:: Treadmill, Rower, Airdyne Frequency (x/week): 3 Duration:: 30 METs: 7.5 Target Heart Rate:: 118-126 Max HR 136 - Hypertension Resting Blood Pressure:: 106/68 Peak Exercise Blood Pressure:: 166/84 - Intervention Home Exercise/Activity Goal:: Sitting Time <3 hrs/day - Education Goals:: Warm-up, RPE HASMUKH Scale, S/S, Safe Exercise, Self-Monitoring - Exercise Program Goals Exercise Program Goals: Aerobic Activity >30 min, B/P <130/80 Nutrition - Initial Assessment - Program Goals Nutrition Program Goals: LDL <70. Total Cholesterol <200. HDL >45. Triglycerides <150. HgbA1C <7%. BMI <25 - Diabetes Do you monitor your blood sugar at home?: Yes Nutrition - 90-Day Assessment - Program Goals Nutrition Program Goals: LDL <70. Total Cholesterol <200. HDL >45. Triglycerides <150. HgbA1C <7%. BMI <25 - Visit Date of Eval: 05/31/18 - Stages of Change Stages of Change:: Action - Diabetes Diabetes:: Yes - Weight Management Weight:: 69.853 kg - Intervention Referral to dietitian:: No Referral to Diabetic Clinic:: No Will attend diet classes:: Yes - Education Attended class for:: Signs & symptoms of hypoglycemia, Signs & symptoms of hyperglycemia, Relate diabetes to coronary artery disease, Healthy eating Tobacco - Initial Assessment - Program Goals Tobacco Program Goals: Complete smoking cessation. Attend education classes. Improve Knowledge Test score - Learning Barriers Learning Barriers: Ready to Learn Tobacco - 90-Day Assessment - Program Goals Tobacco Program Goals: Complete smoking cessation. Attend education classes. Improve Knowledge Test score - Stage of Change Stages of Change:: Action - Learning Barriers Learning Barriers: Participates in education - Family Support Do you have family support?: Yes - Tobacco Use Tobacco Use: Non-smoker Do you use smokeless tobacco?: No - Intervention Smoking Cessation Referral:: No Individual Education/Counseling:: No Education Schedule Given:: Yes - Education Attended class for:: Tobacco triggers, Coronary artery disease, Risk factors, Sexuality, Medical compliance, Cardiac A&P, Angina signs & symptoms Psychosocial - Initial Assess - Target Goals Target Goals: Assess presence or absence of depression. Using a valid screening tool, maximizes coping skills. Positive support system - Psychosocial Test Tool Used:: HANDS Depression Questionnaire - Assistive Devices Fall Risk Assessed:: Yes Psychosocial - 90-Day Assess - Target Goals Target Goals: Assess presence or absence of depression. Using a valid screening tool, maximizes coping skills. Positive support system - Stages of Change Stages of Change:: Action - Psychosocial Test Tool Used:: HANDS Depression Questionnaire - Intervention PS - Interventions: Yes Attend Stress Management Classes, Yes Uses Stress Management Skills, No Referral to Mental Health, No Referral to [facility] Case Management, No Referral to Physician - Education Attended classes for:: Coping techniques, Signs & symptoms of depression, Stress management, Relaxation techniques - Assistive Devices Assistive Devices:: None Fall Risk Assessed:: Yes Patient Health Questionnaire 90-Day Re-eval Assessment 1. Little interest or pleasure in doing things: More than half the days 2. Feeling down, depressed, or hopeless: Several days 3. Trouble falling or staying asleep, or sleeping too much: Not at all 4. Feeling tired or having little energy: Several days 5. Poor appetite or overeating: Not at all 6. Feeling bad about yourself -- or that you are a failure or have let yourself or your family down: Not at all 7. Trouble concentrating on things, such as reading the newspaper or watching television: Not at all 8. Moving or speaking so slowly that other people could have noticed. Or the opposite - being so fidgety or restless that you have been moving around a lot more than usual: Not at all 9. Thoughts that you would be better off , or of hurting yourself in some way: Not at all How difficult have these problems made it for you to do your work, take care of things at home, or get along with other people?: Not difficult at all Total Score: 4 Self-Efficacy 90-Day Re-eval Assessment We would like to know how confident you are in doing certain activities. Please select your confidence level for:: Select your confidence level for the following using the scale 1-10 where 1 is not at all confident and 10 is totally confident. Your score is the average of all 6 responses. Fatigue: How confident are you that you can keep the fatigue caused by your disease from interfering with the things you want to do? Select Number: 7 Physical Discomfort or Pain: How confident are you that you can keep the physical discomfort or pain of your disease from interfering with the things you want to do? Select Number: 7 Emotional Distress: How confident are you that you can keep the emotional distress caused by your disease from interfering with the things you want to do? Select Number: 7 Other Symptoms or Health Problems: How confident are you that you can keep other symptoms or health problems from interfering with the things you want to do? Select Number: 8 Different Tasks and Activities: How confident are you that you can do the different tasks and activities needed to manage your health condition so as to reduce your need to see a doctor? Select Number: 8 Medication: How confident are you that you can do things other than just taking medication to reduce how much your illness affects your everyday life? Select Number: 8 Total Score:: 7
== END 2018-06-07 23:59 ==
LOC: CR 10:15
PROVIDERS: Family Provider Family Medicine; PCP Family Medicine; Visit Provider Internal Medicine Cardiovascular Disease
DX: Z95.1 Presence of aortocoronary bypass graft (principal)
CPT/HCPCS: 93798

== ENCOUNTER 2018-06-13 11:57 | Outpatient (RCR) | payer OTHER, SELFPAY | END 2018-07-07 23:59 | LOC: DC 11:57 | PROVIDERS: Family Provider Family Medicine; PCP Family Medicine; Visit Provider Internal Medicine Cardiovascular Disease | DX: E11.9 Type 2 diabetes mellitus without complications (principal); Z71.3 Dietary counseling and surveillance | CPT/HCPCS: G0109 ==

== ENCOUNTER 2018-06-19 10:15 | Outpatient (RCR) | payer OTHER, SELFPAY ==
[2018-06-08 01:11] VITALS: BP 106/68; BP 166/84
== END 2018-07-07 23:59 ==
LOC: CR 10:15
PROVIDERS: Family Provider Family Medicine; PCP Family Medicine; Visit Provider Internal Medicine Cardiovascular Disease
DX: Z95.1 Presence of aortocoronary bypass graft (principal)
CPT/HCPCS: 93798

== ENCOUNTER 2018-07-11 08:38 | Outpatient (RCR) | payer OTHER, SELFPAY | END 2018-07-11 23:59 | LOC: DC 08:38 | PROVIDERS: Family Provider Family Medicine; PCP Family Medicine; Visit Provider Internal Medicine Cardiovascular Disease | DX: E11.9 Type 2 diabetes mellitus without complications (principal); Z71.3 Dietary counseling and surveillance | CPT/HCPCS: G0109 ==

== ENCOUNTER → 2018-07-25 08:12 | Outpatient (CLI) | payer OTHER, SELFPAY ==
[2018-07-25 10:11] LABS: Hematocrit 44.3 % (40-54); Hemoglobin 14.8 g/dl (13.0-16.5); Mean Corp Hgb Conc 33.4 g/gl (32-36); Mean Corpuscular Hgb 29.2 pg (27.0-32.0); Mean Corpuscular Volume 87.5 fL (80-94); Mean Platelet Vol. 10.4 fl (6.2-12.0); Platelet Count 204 K/mm3 (150-450); RBC Distribution Width CV 13.8 % (11.6-14.6); RBC Distribution Width SD 43.2 fl (35.1-43.9); Red Blood Count 5.06 M/mm3 (4.6-6.2); White Blood Count 4.5 K/mm3 (4.4-11.0)
[2018-07-25 10:14] LABS: Scan Indicated on CBC? Y/N NO
== END ==
PROVIDERS: Family Provider Family Medicine; PCP Family Medicine; Referring Provider Family Medicine; Visit Provider Family Medicine
DX: I25.10 Atherosclerotic heart disease of native coronary artery without angina pectoris (principal); G40.909 Epilepsy, unspecified, not intractable, without status epilepticus; Z12.5 Encounter for screening for malignant neoplasm of prostate
CPT/HCPCS: 36415; 80185; 84153; 85027; G0103

== ENCOUNTER → 2018-08-05 09:07 | Outpatient (CLI) | payer OTHER, SELFPAY ==
[2018-08-05 10:29] LABS: Microalbumin,Random Urine 23.3 mg/L (NO RANGE EST.); Microalbumin:Creatinine Ratio 20.1 mg/g CRE (<30 mg/g CRE)
[2018-08-05 10:41] LABS: ALB/GLOB Ratio 1.3 RATIO (0.9-2.4); AST(SGOT) 19 U/L (15-37); Alanine Aminotransfer ALT/SGPT 34 U/L (16-61); Albumin, Serum 3.9 g/dL (3.2-5.0); Alkaline Phosphatase 84 U/L (45-117); Anion Gap 11 (5-15); BUN 14 mg/dL (7-18); Calcium,Total 9.2 mg/dL (8.5-10.1); Chloride 105 mmol/L (98-107); Creatinine, Serum 0.82 mg/dL (0.70-1.30); EST Glomerular Filtration Rate 100 mL/min (>60); Est Glom Filt Rate - Afr Amer 121 mL/min (>60); Globulin 3.1 g/dL (2.2-4.2); Glucose 126 mg/dL (74-106); Potassium 4.1 mmol/L (3.5-5.1); Sodium Level 143 mmol/L (136-145); T4 Free Direct 0.94 ng/dL (0.76-1.46); Thyroid Stim Hormone (TSH) 1.94 uIU/mL (0.358-3.74)
== END ==
PROVIDERS: Family Provider Family Medicine; PCP Family Medicine
DX: E11.65 Type 2 diabetes mellitus with hyperglycemia (principal)
CPT/HCPCS: 36415; 80053; 82043; 82570; 84439; 84443

== ENCOUNTER → 2018-10-24 08:06 | Outpatient (CLI) | payer OTHER, SELFPAY ==
[2018-10-17 10:49] VITALS: BMI 25.4
[2018-10-24 10:18] LABS: AST(SGOT) 21 U/L (15-37); Alanine Aminotransfer ALT/SGPT 35 U/L (16-61); Albumin, Serum 4.1 g/dL (3.2-5.0); Alkaline Phosphatase 82 U/L (45-117); Bilirubin, Direct 0.12 mg/dL (0.00-0.30); Cholesterol 104 mg/dL (200); Globulin 2.9 g/dL (2.2-4.2); High Density Lipoprotein 47 mg/dL; Triglycerides 52 mg/dL; Very Low Density Lipoprotein 10 mg/dL (5-40)
--- OUTSIDE RECORDS SUMMARY | 2018-12-28 20:50 | XMS RPT_ITS ---
:1955 Author Organization OHIP Support Name Relationship Address Phone R Unavailable Unavailable Unavailable SPARR, MALINI Unavailable [address] + [place] [address] R Unavailable Unavailable Unavailable SPARR, MALINI Unavailable [address] + [place] [address] R Unavailable Unavailable Unavailable SPARR, MALINI Unavailable [address] + [place] [address] R Unavailable Unavailable Unavailable SPARR, MALINI Unavailable [address] + [place] [address] R Unavailable Unavailable Unavailable SPARR, MALINI Unavailable [address] + [place] [address] R Unavailable Unavailable Unavailable SPARR, MALINI Unavailable [address] + [place] [address] R Unavailable Unavailable Unavailable SPARR, MALINI Unavailable [address] + [place] [address] R Unavailable Unavailable Unavailable SPARR, MALINI Unavailable [address] + [place] [address] R Unavailable Unavailable Unavailable SPARR, MALINI Unavailable [address] + [place] [address] R Unavailable Unavailable Unavailable SPARR, MALINI Unavailable [address] + [place] [address] R Unavailable Unavailable Unavailable SPARR, MALINI Unavailable [address] + [place] [address] R Unavailable Unavailable Unavailable SPARR, MALINI Unavailable [address] + [place] [address] R Unavailable Unavailable Unavailable SPARR, MALINI Unavailable [address] + [place] [address] R Unavailable Unavailable Unavailable SPARR, MALINI Unavailable [address] + [place] [address] R Unavailable Unavailable Unavailable SPARR, MALINI Unavailable [address] + [place] [address] R Unavailable Unavailable Unavailable SPARR, MALINI Unavailable [address] + [place] [address] R Unavailable Unavailable Unavailable SPARR, MALINI Unavailable [address] + [place] [address] R Unavailable Unavailable Unavailable SPARR, MALINI Unavailable [address] + [place] [address] R Unavailable Unavailable Unavailable SPARR, MALINI Unavailable [address] + [place] [address] R Unavailable Unavailable Unavailable SPARR, MALINI Unavailable [address] + [place] [address] R Unavailable Unavailable Unavailable SPARR, MALINI Unavailable [address] + [place] [address] R Unavailable Unavailable Unavailable SPARR, MALINI Unavailable [address] + [place] [address] R Unavailable Unavailable Unavailable SPARR, MALINI Unavailable [address] + [place] [address] R Unavailable Unavailable Unavailable SPARR, MALINI Unavailable [address] + [place] [address] Care Team Providers Name Role Phone ANA MARTINEZ Attending Unavailable Libby Arias H Primary Care Unavailable ANA MARTINEZ Referring Unavailable ANA MARTINEZ Attending Unavailable ANA MARTINEZ Referring Unavailable Arias, Libby H Primary Care Unavailable TY CHAPPELL Attending Unavailable Arias, Libby H Referring Unavailable Arias, Libby H Primary Care Unavailable HEATHER, RADAMES Admitting Unavailable Arias, Libby H Primary Care Unavailable TY CHAPPELL Consulting Unavailable TY CHAPPELL Attending Unavailable AB OSBORN Consulting Unavailable HEATHER, RADAMES Consulting Unavailable MD NGOZI PHIPPS Consulting Unavailable Annette LERMA Consulting Unavailable JUAN, ANA Calderon Attending Unavailable JUAN, ANA J Referring Unavailable Arias, Libby H Primary Care Unavailable Arias, Libby H Referring Unavailable Arias, Libby H Primary Care Unavailable MOUCK, KMA Escalante Attending Unavailable MOUCK, KAM E Attending Unavailable Arias, Libby H Referring Unavailable Arias, Libby H Primary Care Unavailable JUAN, ANA J Attending Unavailable JUAN, ANA J Referring Unavailable Arias, Libby H Primary Care Unavailable JUAN, ANA J Attending Unavailable IMCA Referring Unavailable Arias, Libby H Primary Care Unavailable Missy, Bernardo Attending Unavailable Arias, Libby Referring Unavailable Arias, Libby Primary Care Unavailable Missy, Circle Attending Unavailable Missy, Circle Referring Unavailable Arias, Libby Primary Care Unavailable Missy, Circle Attending Unavailable Arias, Libby Referring Unavailable Arias, Libby Primary Care Unavailable Missy, Bernardo Attending Unavailable Arias, Libby Primary Care Unavailable Missy, Bernardo Attending Unavailable Arias, Libby Primary Care Unavailable Missy, Circle Attending Unavailable Arias, Libby Primary Care Unavailable Missy, Bernardo Attending Unavailable Arias, Libby Primary Care Unavailable Missy, Bernardo Attending Unavailable Arias, Libby Primary Care Unavailable Missy, Circle Attending Unavailable Arias, Libby Primary Care Unavailable Missy, Circle Attending Unavailable Arias, Libby Primary Care Unavailable Missy, Bernardo Attending Unavailable Arias, Libby Primary Care Unavailable Missy, Circle Attending Unavailable Arias, Libby Referring Unavailable Missy, Bernardo Attending Unavailable Arias, Libby Primary Care Unavailable Missy, Bernardo Attending Unavailable Missy, Bernardo Referring Unavailable Arias, Libby Primary Care Unavailable Arias, Libby Primary Care Unavailable Carson Flores Attending Unavailable Missy, Circle Attending Unavailable Missy, Bernardo Attending Unavailable Arias, Libby Primary Care Unavailable Missy, Bernardo Referring Unavailable Missy, Bernardo Attending Unavailable Arias, Ilbby Referring Unavailable Missy, Circle Attending Unavailable Missy, Circle Referring Unavailable Arias, Libby Primary Care Unavailable Iveth Bunch Attending Unavailable Arias, Libby Attending Unavailable Arias, Libby Primary Care Unavailable Arias, Libby Referring Unavailable Missy, Bernardo Attending Unavailable Arias, Libby Primary Care Unavailable Arias, Libby Primary Care Unavailable DOCTOR, OUT OF TOWN Consulting Unavailable CATHLEEN VALENCIA Attending Unavailable CATHLEEN VALENCIA Referring Unavailable Arias, Libby Attending Unavailable Arias, Libby Referring Unavailable Libby Arias Primary Care Unavailable MARCIE LERMA Referring Unavailable KAM BERMUDEZ ([facility]) Referring Unavailable KAM BERMUDEZ ([facility]) Referring Unavailable ANA MARTINEZ ([facility]) Attending Unavailable ANA MARTINEZ ([facility]) Referring Unavailable HEATHERRADAMES Admitting Unavailable LATY DON Attending Unavailable MARCIE LERMA Consulting Unavailable KAM BERMUDEZ ([facility]) Attending Unavailable LIBBY ARIAS Referring Unavailable KAM BERMUDEZ ([facility]) Attending Unavailable LIBBY ARIAS Referring Unavailable ANA MARTINEZ ([facility]) Attending Unavailable PROBLEMS PROBLEMS DATE TYPE CONDITION / CODE ATTENDING STATUS SOURCE 10/24/2018 Unknown E78.5 - Missy, Circle Active [facility] Hyperlipidemia, Community unspecified / Hospital E78.5(ICD-10) Repository 10/17/2018 Unknown Z95.1 - Presence of Missy, Bernardo Active [facility] aortocoronary bypass Community graft / Hospital Z95.1(ICD-10) Repository 08/26/2018 Unknown E11.65 - Type 2 CATHLEEN VALENCIA Active [facility] diabetes mellitus Community with hyperglycemia / Hospital E11.65(ICD-10) Repository 08/08/2018 Unknown E11.9 - Type 2 Missy, Bernardo Active [facility] diabetes mellitus Community without Hospital complications / Repository E11.9(ICD-10) 03/29/2018 Unknown I25.2 - Old Missy, Bernardo Active [facility] myocardial Community infarction / Hospital I25.2(ICD-10) Repository 02/23/2018 Active Presence of NA Active [place] aortocoronary bypass Clinic Main graft / [place] Z95.1(ICD-10) Repository 02/23/2018 Admitting Unknown / LAHORRA, Active [facility] diagnosis UNK(Unknown) [facility] Repository 02/23/2018 Active Non-ST elevation LAHORRA, Active [facility] (NSTEMI) myocardial [facility] Other infarction / [place] I21.4(ICD-10) Repository 02/16/2018 Active Other postprocedural LAHORRA, Active [facility] complications and [facility] Other disorders of [place] respiratory system, Repository not elsewhere classified / J95.89(ICD-10) 01/24/2018 Active Type 2 diabetes NA Active [facility] mellitus with Clinic Main hyperglycemia / [place] E11.65(ICD-10) Repository 01/21/2018 Unknown R94.39 - Abnormal Missy, Bernardo Active [facility] function study / Repository R94.39(ICD-10) 01/21/2018 Unknown R07.9 - Chest pain, Missy, Bernardo Active [facility] unspecified / Community R07.9(ICD-10) Hospital Repository 01/21/2018 Unknown I25.9 - Chronic Missy, Bernardo Active [facility] ischemic heart Community disease, unspecified Hospital / I25.9(ICD-10) Repository 01/21/2018 Unknown 250.00 - Diabetes Missy, Circle Active [facility] mellitus without Community mention of Hospital complication, type Repository II or unspecified type, not stated as uncontrolled / 250.00(ICD-9) 01/21/2018 Unknown 268.9 - Unspecified Missy, Circle Active [facility] vitamin D deficiency Community / 268.9(ICD-9) Hospital Repository 01/21/2018 Unknown E55.9 - Vitamin D Missy, Circle Active [facility] deficiency, Community unspecified / Hospital E55.9(ICD-10) Repository 12/18/2017 Unknown R07.89 - Other chest AriasLibby Active [facility] pain / Community R07.89(ICD-10) Hospital Repository PROCEDURES PROCEDURES No Procedure Records FoundRESULTS RESULTS LIVER PROFILE Collected: 10/24/2018 Status: F Source: [place] 8:16 AM [facility] [place], [place] REPOSITORY TYPE CODE TESTS RESULT OUT OF RANGE REFERENCE UNITS LAB L501.1500 6.4-8.2 g/dL Normal T PROT 7.0 LAB L501.1800 3.2-5.0 g/dL Normal ALB 4.1 LAB L501.1950 2.2-4.2 g/dL Normal GLOB 2.9 LAB L501.4100 15-37 U/L Normal AST 21 LAB L501.4305 45-117 U/L Normal ALK P 82 LAB L501.4405 16-61 U/L Normal ALT 35 LAB L501.4600 0.20-1.00 mg/dL Normal T BILI 0.40 LAB L501.4700 0.00-0.30 mg/dL Normal D BILI 0.12 Performed By: #### L500.3400, L500.4100 #### [facility] [address] [place], [address] LIPID PROFILE Collected: 10/24/2018 Status: F Source: [place] 8:16 AM [facility] [place], [place] REPOSITORY TYPE CODE TESTS RESULT OUT OF RANGE REFERENCE UNITS LAB L501.4900 200 mg/dL Normal CHOL 104 Result Comment: <200 mg/dL Desirable 200-240 mg/dL Borderline >240 mg/dL High Risk LAB L501.5000 mg/dL Normal TRIG 52 Result Comment: The drugs N-Acetylcysteine and Metamizole may falsely depress this assay. Serum Triglycerides Reference Interval Normal <150 mg/dL Borderline high 150 - 199 mg/dL High 200 - 499 mg/dL Very High > or = 500 mg/dL LAB L501.6400 mg/dL Normal HDL 47 Result Comment: The drugs N-Acetylcysteine and Metamizole may falsely depress this assay. Reference Range HDL <40 mg/dL Low HDL Cholesterol HDL >or= 60 mg/dL High HDL Cholesterol LAB L501.6500 0-130 mg/dL Normal LDL 47 LAB L501.6600 5-40 mg/dL Normal VLDL 10 Performed By: #### L500.3400, L500.4100 #### [facility] [address] [place], [address] CARDIOLOGY VISIT Observed: 10/17/2018 Status: F Source: [place] REPORT 11:13 AM [facility] [place], [place] REPOSITORY [facility] [address] [place] [address] OFFICE VISIT Date of Service: 10/17/18 MR#: [id number] Acct: [id number] Name: BYRON AMBRIZ Rep #: [id number] : 1955 Provider: Bernardo Louis MD Age/Sex: 63/M [place] [facility] [place] Signed [facility] Chief Complaint: Follow up visit Details: BYRON AMBRIZ is a 63 M who presents to the office today for a follow up evaluation. He had been having chest discomfort since October of this year described as a heaviness and a burning sensation with exertion. He apparently reported this to you in the office he was given an antacid with some improvement in his discomfort initially. He however continued to have the discomfort and was therefore scheduled to undergo a stress test. He had this performed where he exercised to a high metabolic workload of 13.5 metabolic equivalents he did develop chest tightness during the exertion with dissipated on rest. The nuclear images demonstrate evidence of anteroseptal and apical ischemia and hence he was referred here. As you know he does have a history of diabetes mellitus but his cholesterol has been under good control. He has had no neck arm or jaw discomfort and no radiation of this discomfort. No dizziness or diaphoresis and no claudication. He subsequently underwent a cardiac catheterization with demonstrated a totally occluded left anterior descending artery with severe disease involving the first and second diagonal branches moderate disease involving the circumflex artery. He underwent four-vessel coronary bypass surgery with a left internal mammary artery to the left anterior descending artery, free right internal mammary artery to the diagonal branch, saphenous vein graft to the ramus intermedius and obtuse marginal branch. His physical exam demonstrates clear lung lima regular rate and rhythm and no pedal edema. He has been doing remarkably well since his last visit. 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: No Accompanied by: none Is patient in pain?: No Allergies No Known Allergies Allergy (Verified 10/17/18 10:49) Medications aspirin 81 mg tablet,delayed release 81 mg PO QDAY tab 01/15/18 [History Confirmed 10/17/18] metformin ER 500 mg tablet,extended release 24 hr 1,000 mg PO BID 90 Days #360 tab 01/15/18 [History Confirmed 10/17/18] multivitamin tablet 1 tab PO QDAY 01/15/18 [History Confirmed 10/17/18] omega-3 fatty acids 1,000 mg capsule 1,000 mg PO QDAY 01/15/18 [History Confirmed 10/17/18] Atorvastatin Calcium [Lipitor] 80 mg PO QHS 03/21/18 [History Confirmed 10/17/18] Sitagliptin Phosphate [Januvia] 100 mg PO DAILY 03/21/18 [History Confirmed 10/17/18] acetaminophen 325 mg tablet 325 mg PO .COMPLEX PRN 03/29/18 [History Confirmed 10/17/18] metoprolol tartrate 25 mg tablet 25 mg PO BID #180 tab 09/03/18 [Rx Confirmed 10/17/18] phenytoin sodium extended 100 mg capsule 100 mg PO BID cap 10/17/18 [History Confirmed 10/17/18] [facility] Medical History History of non-ST elevation myocardial infarction (NSTEMI) (Chronic 02/2018) 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 Brother CAD (coronary artery disease) Stented coronary artery Social History Smoking Status: Never smoker ROS Const Const: Negative for fatigue, weakness, night sweats, excessive sweating, frequent falls, headache(s) or daytime sleepiness Eyes Eyes: Negative for loss of peripheral vision, transient loss of vision, blind spots, double vision or blurry vision ENT ENT: Negative for headache(s), dizziness, balance problems, Nosebleed/epistaxis, tongue swelling or lip swelling Cardio Chest Pain: No Palpitations: No Edema: None Muscle aches with walking: None Resp Respiratory: Negative for SOB at rest, SOB orthopnea\SOB lying down, Cough, paroxysmal nocturnal dyspnea or SOB with activity GI GI: Negative nausea, vomiting, heartburn, black,tarry stools or bright, red blood in stools : Negative for hematuria Musc Musc: Negative for balance problems, muscle aches/ myalgia, muscle weakness or joint pain Skin Skin: Negative non-healing lesions, unusual bruising or rash Neuro Neuro: Negative for weakness, frequent falls, headache(s), double vision, dizziness, lightheadedness, orthostatic symptoms, blurry vision or lack of coordination Winston Hematologic/Lymphatic: Negative for easy bruising or easy bleeding Endo Endo: Negative for fatigue, excessive sweating, cold intolerance, heat intolerance, increased thirst/drinking or hair loss Psych Psych: Negative for anxiety or depression Allergy Allergy/Immunology: Negative for throat swelling, Negative for tongue swelling, Negative for hives, Negative for rash, Negative for lip swelling Cardiology Exam Const Appearance: cooperative, healthy appearing, well developed, well groomed and no acute distress Nutritional Appearance: well nourished and average body habitus Orientation: alert, awake and oriented x3 Head Head: normal to inspection, normocephalic and atraumatic Ears: hearing grossly normal bilaterally and external ears normal Nose: external nose normal, nasal mucous membranes and turbinates normal, nares normal, septum normal, no nasal discharge Face and Sinus: face symmetric Mouth: oral mucosae normal, tongue normal, oropharynx normal and moist mucous membranes Teeth and gingiva: dentition normal Throat: posterior oropharynx normal, tonsils normal and uvula midline Eyes General: appearance normal, both eyes and all related structures Eyelids: eyelids normal Conjunctivae: conjunctivae normal Pupils: PERRL, normal by confrontation and accommodation normal EOM: EOM intact bilaterally Neck Neck: normal visual inspection, trachea midline and no JVD JVD: +5 Carotids: normal carotid upstroke and bounding pulses Chest Chest inspection: normal inspection of the chest, symmetric chest movement and normal respiratory effort Auscultation: Bilateral: Clear to Auscultation Cardio Palpation: normal PMI Rate: regular rate Rhythm: regular rhythm Heart sounds: S1 normal, S2 normal and normal, physiologic split S2; negative rub, gallop or murmur GI GI: normal to inspection, soft, no hepatosplenomegaly and bowel sounds present Neuro General: alert, awake, oriented x3, no focal sensory deficit, gait normal and moves all extremities Skin Skin: no rashes or lesions noted Extremities Pulses: Normal: Right Femoral Pulse, Left Femoral Pulse, Right Dorsalis Pedis Pulse, Left Dorsalis Pedis Pulse, Right Posterior Tibial Pulse, Left Posterior Tibial Pulse, Right Radial Pulse, Left Radial Pulse Lower Extremity Edema: None: Bilateral Musculoskel Musculoskeletal: No joint tenderness Psych Psychological: normal affect Assessment AND Plan 1. S/P CABG x 4 Z95.1 02/18/[address] Ty Chappell [facility]: MORALES to LAD, Free ELISE to the diagonal,reversed SVG to Ramus intermedius branch and OM. Plan He is status post four-vessel coronary bypass surgery and appears to be doing remarkably well at this time recommendation is for him to continue the same without making any changes. 2. Hyperlipidemia E78.5 Plan He does have a history of hyperlipidemia. My recommendation is to remain on the high intensity statin repeat lipid profile will be obtained at the appropriate time. 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)AGEGABRIELLAOG During your visit today, we recorded the following information about you: Kia Foster 09/23/2018 10:12 AM Signed Last visit 07/2018 Next visit 11/2018 Kia Foster Allergies As of Date: 09/20/2018 (No Known Allergies) Date Reviewed: 07/16/2018 Reviewed by: Ana Barlow (Manager Acquisition) Juan - Fully Assessed Reason for Visit: Refill Request [94] Order(s):metFORMIN ER (GLUCOPHAGE XR) 500 mg 24 hr tabletTAKE 2 TABLETS BEFORE BREAKFAST AND BEFORE SUPPERDisp: 360 tabletRfl: 1 Prescriptions as of 09/20/2018 Sig: METFORMIN ER 500 MG TABLET,EX* TAKE 2 TABLETS BEFORE BREAKFA* ASPIRIN ORAL Take by mouth. ATORVASTATIN 80 MG TABLET Take 1 tablet by mouth daily * BLOOD SUGAR DIAGNOSTIC STRIPS 1x/day BLOOD-GLUCOSE METER KIT For monitoring sugars 1x/day FISH OIL ORAL Take by mouth. LANCETS 28 GAUGE 1x/day METOPROLOL TARTRATE 25 MG TAB* Take 25 mg by mouth twice yany* * MULTIVITAMIN TABLET Take one(1) tablet daily. PHENYTOIN SODIUM EXTENDED 100* Take by mouth. 200mg every mo* SITAGLIPTIN 100 MG TABLET Take 1 tablet by mouth once d* Problem List As Of Date 09/20/2018 Noted Resolved Pancreatitis [K85.90] INVALID FOR* Type 2 diabetes mellitus with hyperglycemia (HC* NSTEMI (non-ST elevated myocardial infarction) *INVALID FOR* S/P CABG x 4 [Z95.1] INVALID FOR* More... Prescriptions ordered this encounter Disp Refills Start End METFORMIN ER 500 MG TABLET,EXTENDED * 360 * 1 09/23/2018 Sig: TAKE 2 TABLETS BEFORE BREAKFAST AND BEFORE SUPPER Medications Discontinued During This Encounter metFORMIN ER (GLUCOPHAGE XR) 500 mg * 360 * 0 06/11/2018 09/23/2018 Sig: TAKE 2 TABLETS BEFORE BREAKFAST AND BEFORE AT SUPPER Disc: Reason for discontinue is not on file. Encounter Status:Closed by ANA MARTINEZ CNP on 09/23/18 MICROALB:CREAT Collected: 08/05/2018 Status: F Source: [place]A RATIO,RANDOM UR 9:10 AM [facility] [place], [place] REPOSITORY TYPE CODE TESTS RESULT OUT OF RANGE REFERENCE UNITS LAB L501.1200 NO RANGE EST. mg/dL Normal UR CREAT 116.00 LAB L502.0500 NO RANGE EST. mg/L Normal 23.3 MICROALBUMIN ,UR LAB L502.0600 <30 mg/g CRE mg/g CRE Normal 20.1 MALB:CREAT Performed By: #### L502.0250 #### [facility] [address] [place], [address] COMPREHENSIVE METABOLIC Collected: 08/05/2018 Status: F Source: [facility] 9:10 AM [facility] [place] [place] REPOSITORY TYPE CODE TESTS RESULT OUT OF RANGE REFERENCE UNITS LAB L501.0100 74-106 mg/dL High GLU 126 Result Comment: Fasting Glucose result greater than or equal to 126 mg/dL suggests DIABETES MELLITUS per A.D.A. criteria. Please note revised GLUCOSE reference range effective 2017. LAB L501.1000 7-18 mg/dL Normal BUN 14 LAB L501.1100 0.70-1.30 mg/dL Normal CREAT,SERUM 0.82 Result Comment: The validity of the calculated GFR AND GFRAA in patients over 70 years has not been determined. Clinical correlation is essential. LAB L501.1110 >60 mL/min Normal EST GFR 100 Result Comment: Non- GFR Calc LAB L501.1115 >60 mL/min Normal EST GFR - AA 121 Result Comment: GFR Calc LAB L501.1300 10-20 RATIO Normal BUN/CRE 17.0 LAB L501.1500 6.4-8.2 g/dL T Normal PROT 7.0 LAB L501.1800 3.2-5.0 g/dL Normal ALB 3.9 LAB L501.1950 2.2-4.2 g/dL Normal GLOB 3.1 LAB L501.2000 0.9-2.4 RATIO Normal A/G 1.3 LAB L501.2200 8.5-10.1 mg/dL CA Normal 9.2 LAB L501.4100 15-37 U/L Normal AST 19 LAB L501.4305 45-117 U/L Normal ALK P 84 LAB L501.4405 16-61 U/L Normal ALT 34 LAB L501.4600 0.20-1.00 mg/dL T Normal BILI 0.30 LAB L501.5300 136-145 mmol/L NA Normal 143 LAB L501.5600 3.5-5.1 mmol/L K Normal 4.1 LAB L501.5900 98-107 mmol/L CL Normal 105 LAB L501.6100 21.0-32.0 mmol/L Normal CO2 27.0 LAB L501.6200 5-15 Normal GAP 11 Performed By: #### L500.4050, L501.9520, L506.0400 #### [facility] [address] [place], [address] THYROID STIM HORMONE Collected: 08/05/2018 Status: F Source: ANTONELLA ([facility]) 9:10 AM [facility] [place], [place] REPOSITORY TYPE CODE TESTS RESULT OUT OF RANGE REFERENCE UNITS LAB L501.9520 0.358-3.74 uIU/mL Normal TSH 1.94 Performed By: #### L500.4050, L501.9520, L506.0400 #### [facility] [address] [place], [address] T4 FREE DIRECT Collected: 08/05/2018 Status: F Source: [place] 9:10 AM [facility] [place] [place] REPOSITORY TYPE CODE TESTS RESULT OUT OF RANGE REFERENCE UNITS LAB L506.0400 0.76-1.46 ng/dL Normal T4 FREE 0.94 DIRECT Performed By: #### L500.4050, L501.9520, L506.0400 #### [facility] [address]. [place], [place], [address] CBC-COMPLETE BLOOD CNT Collected: 07/25/2018 Status: F Source: [place] NO DIFF 8:18 AM [facility] [place], [place] REPOSITORY TYPE CODE TESTS RESULT OUT OF RANGE REFERENCE UNITS LAB L100.1000 4.4-11.0 K/mm3 Normal WBC 4.5 LAB L100.1200 4.6-6.2 M/mm3 Normal RBC 5.06 LAB L100.1300 13.0-16.5 g/dl Normal HGB 14.8 LAB L100.1400 40-54 % Normal HCT 44.3 LAB L100.1500 80-94 fL Normal MCV 87.5 LAB L100.1600 27.0-32.0 pg Normal MCH 29.2 LAB L100.1700 32-36 g/gl Normal MCHC 33.4 LAB L100.1810 11.6-14.6 % Normal RDW CV 13.8 LAB L100.1820 35.1-43.9 fl Normal RDW SD 43.2 LAB L100.1900 150-450 K/mm3 Normal PLT 204 LAB L100.2000 6.2-12.0 fl Normal MPV 10.4 Performed By: #### L100.0500, L501.9910, L501.7700 #### [facility] [address] [place], [address] PSA,TOTAL - ANNUAL Collected: 07/25/2018 Status: F Source: [place] SCREEN 8:18 AM [facility] - [place], [place] REPOSITORY TYPE CODE TESTS RESULT OUT OF RANGE REFERENCE UNITS LAB L501.9910 0.00-4.00 ng/mL Normal PSA,TOT 0.60 SCREEN Result Comment: This test was performed using the TPSA assay method for the [employer] chemistry system. Values obtained with different assay methods cannot be used interchangably. When changing PSA assays in the course of monitoring a patient, additional sequential testing should be carried out to confirm baseline values. Performed By: #### L100.0500, L501.9910, L501.7700 #### [facility] [address] [place], [address] PHENYTOIN (DILANTIN) Collected: 07/25/2018 Status: F Source: [place] LEVEL 8:18 AM [facility] [place], [place] REPOSITORY Order Comment: Time Medication is to be Given? 0000 TYPE CODE TESTS RESULT OUT OF REFERENCE UNITS RANGE LAB L501.7700 10.0-20.0 mL Low PHENYTOIN 7.0 Performed By: #### L100.0500, L501.9910, L501.7700 #### [facility] [address] [place], [address] PROGRESS Observed: 07/16/2018 Status: COMPLETED Source: [place] 11:10 AM [facility] OTHER CAMPUS REPOSITORY HNO ID: [id number] Author: Ana Barlow ([employer]) Juan Service: (none) Author Type: Nurse Practitioner Type: Progress Notes Filed: 08/05/2018 2:09 PM Note Text: Subjective Date of encounter: 07/16/2018 Byron Ambriz (1955), is a 62 year old male who presents for Diabetes management Important Lab History: HBA1C: 07/2016: 6.1%, 08/2016: 6.8%, 05/2017: 6%, 07/2017: 6.8%, 11/2017: 6.6%, 02/2018: 6.5%, 07/2018: 6.2% Thyroid Function Testin05/2017: TSH 1.500 (0.358-3.740 uIU/mL), free T4 0.89 (0.76-1.46 ng/dL), Renal Function Testin08/2016: Creatinine 0.72, 05/2017: creatinine 0.67 mg/dL, eGFR>60, 02/2018: Creatinine 0.65 Urine for Microalbumin: 05/2017: microalbumin to creatinine ratio ok, Lipid Profile: 08/2016: TC 169, HDL 61, LDL 96 TG 58, 02/2018: TC 119, HDL 48, LDL 55, TG 78 Liver Profile: 05/2017: Liver function tests ok, 02/2018: AST 83 (9-37 U/L), ALT, Alkaline Phosphatase ok Dilated Eye Exam: Patient educated to have ophthalmology visits at least once a year. 2006: Around this time diagnosed with Type 2 Diabetes Mellitus. Started on Metformin therapy. 2008: Had pancreatitis. 2015: Around this time, Metformin oral agent discontinued, janumet started. Patient self switched back to solo Metformin therapy around 08/2016. 03/2017: Patient self switched back to Janumet. 05/2017: First time office visit for Type 2 Diabetes Mellitus management. On janumet at this time. 05/2017: Glutamic Acid Decarboxylase (CHERYL-65) antibody <5 0 (<5.0 IU/mL), insulin autoantibody <0.4 (<0.4 U/mL), IA-2 antibody <0.6 (<1.0 U/mL), testing done at [facility]. 05/2017: c-peptide 3.6 (0.8-3.2 ng/mL) with glucose 100 mg/dL, Previous diabetes related labs from [employer] reviewed prior to today's office visit. Any changes made at our last diabetes management visit were abstracted accordingly (if applicable). Today's Office Visit: ? Orals: Metformin 500 mg ER two tabs twice a day, Januvia 100 mg daily self monitoring blood glucose data: see logs, majority readings doing well at this time Note: started on Januvia when in the hospital. Glucose is stable now, no significant low blood sugars. Has a history of pancreatitis- gall bladder induced per patient. I reviewed the association with pancreatitis and that class of drug. I reviewed signs of pancreatitis and when to go to ER. Patient elects to remain on the drug for now Denies frequent periods of hypoglycemia I reviewed and updated the below Review of Systems for today's office visit. Review of Systems Constitutional: Negative for chills, diaphoresis, fever, malaise/fatigue and weight loss. HENT: Negative for congestion, nosebleeds and sore throat. Eyes: Negative for blurred vision, pain and discharge. Respiratory: Negative for cough, hemoptysis, sputum production, shortness of breath and wheezing. Cardiovascular: Negative for chest pain, palpitations, orthopnea and leg swelling. Gastrointestinal: Negative for abdominal pain, blood in stool, constipation, diarrhea, heartburn, nausea and vomiting. Genitourinary: Negative for dysuria, frequency, hematuria and urgency. Musculoskeletal: Negative for back pain, joint pain and myalgias. Skin: Negative for itching and rash. Neurological: Negative for dizziness, tingling, loss of consciousness and headaches. Endo/Heme/Allergies: Negative for polydipsia. Psychiatric/Behavioral: Negative for depression and suicidal ideas. The patient is not nervous/anxious and does not have insomnia. 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 - Seizures (HCC) - Type 2 diabetes mellitus with hyperglycemia (HCC) PAST SURGICAL HISTORY Procedure Laterality Date - COLONOSCOP W/ OR W/O BRSH SPEC 04/15/08 - CORONARY ARTERY BYPASS GRAFT 02/18/2018 x4 - LAP CHOLECYSTECT/CHOLANGIOGRAPHY FAMILY HISTORY Problem Relation Age of Onset - Hypertension Mother - Heart Brother - Lipids Brother Social History Marital status: Spouse name: Years of education: Number of children: Social History Main Topics Smoking status: Never Smoker Smokeless tobacco: Former User Types: Chew Alcohol use: Yes Comment: 1x/month beer Drug use: No Other Topics Concern Service No Blood Transfusions No Caffeine Concern Yes Occupational Exposure No Hobby Hazards No Sleep Concern No Stress Concern Yes Weight Concern No Special Diet Yes Comment:heart healthy Back Care No Exercise No Bike Helmet No Seat Belt Yes Self-Exams No Current Meds metoprolol tartrate, short acting, (LOPRESSOR) 25 mg tablet Take 25 mg by mouth twice daily. metFORMIN ER (GLUCOPHAGE XR) 500 mg 24 hr tablet TAKE 2 TABLETS BEFORE BREAKFAST AND BEFORE AT SUPPER blood sugar diagnostic (FREESTYLE LITE STRIPS) test strip 1x/day lancets (FREESTYLE LANCETS) 28 gauge misc 1x/day Blood-Glucose Meter (FREESTYLE LITE METER) monitoring kit For monitoring sugars 1x/day atorvastatin (LIPITOR) 80 mg tablet Take 1 tablet by mouth daily at bedtime. sitaGLIPtin (JANUVIA) 100 mg tablet Take 1 tablet by mouth once daily. phenytoin ER (DILANTIN) 100 mg ER capsule Take by mouth. 200mg every morning; PM dose alternates between 100mg and 200mg every other day. ASPIRIN ORAL Take by mouth. DOCOSAHEXANOIC ACID/EPA (FISH OIL ORAL) Take by mouth. MULTIVITAMIN TAB Take one(1) tablet daily. Objective BP 128/80 Pulse 62 Ht 5' 6 (1.68m) Wt 156 lb 14.4 oz (71.2kg) BMI 25.34 kg/(m2). Physical Exam Constitutional: He is oriented to person, place, and time and well-developed, well-nourished, and in no distress. He appears not jaundiced. Non-toxic appearance. No distress. HENT: Head: Normocephalic and atraumatic. Eyes: Conjunctivae and EOM are normal. No scleral icterus. Neck: Neck supple. No thyromegaly present. Cardiovascular: Normal rate, regular rhythm and intact distal pulses. Pulmonary/Chest: Effort normal and breath sounds normal. No respiratory distress. He has no wheezes. He has no rales. Abdominal: Soft. There is no tenderness. There is no rebound and no guarding. Musculoskeletal: He exhibits no edema or tenderness. Lymphadenopathy: He has no cervical adenopathy. Neurological: He is alert and oriented to person, place, and time. He has intact cranial nerves. -Sensory: Monofilament Exam- (1) Left Foot Positive, (2) Left Foot Positive, (3) Left Foot Positive, (4) Left Foot Positive (1) Right Foot Positive, (2) Right Foot Positive, (3) Right Foot Positive, (4) Right Foot Positive Montanez: (1) around area of interphalangeal joint of the hallux, (2) around 1st metatarsal head, (3) around 3rd metatarsal head, (4) around 5th metatarsal head Left Foot: No ulceration, Vesicle/Bulla Right Foot: No ulceration, Vesicle/Bulla Skin: Skin is warm and dry. Psychiatric: Mood, affect and judgment normal. His mood appears not anxious. ASSESSMENT/PLAN: 1. Type 2 diabetes mellitus with hyperglycemia, without long- term current use of insulin (HCC) - ICD9: 250.00, 790.29, ICD10: E11.65 - HGBA1C B/O (AG) - COMP METABOLIC PANEL - TSH BLD - T4 FREE/FREE THYROX - ALBUMIN/CREAT RATIO RND UR Plan of Care: 1. HbA1C 6.2%, improved. 2. Can continue current diabetes medications and dosages for now. 3. Total time for today's office visit was greater than 25 minutes. Greater than 50% of the time was spent in counseling and/or coordination of care. 4. Self monitoring blood glucose log sheet(s) were given to the patient. Instructed to fill out sheets and bring log to next visit. 5. Answered all questions. 6. Patient verbalized understanding of all the above instructions. 7. Discussed therapeutic lifestyle changes. Ana Martinez APRN.PHYSICIAN ASSISTANT PSYCHIATRY ADDENDUM 07/2018: Creatinine 0.82 07/2018: LFTS ok 07/2018: TSH 1.94 (0.358-3.74 uIU/mL), free T4 0.94 (0.76-1.46), 07/2018: Microalbumin:Creatinine Ratio ok Ana Martinez APRN.PHYSICIAN ASSISTANT PSYCHIATRY 08/05/2018 14:08:50 CNOV Observed: 07/16/2018 Status: COMPLETED Source: [place] 11:00 AM [facility] REPOSITORY Office Visit (ENAGST) BYRON AMBRIZ ([id number]) 1955 M Date Time Provider Department 07/16/18 11:00 AM ANA MARTINEZ (LE)ELLIE During your visit today, we recorded the following information about you: Pulse Blood pressure Weight Height 62/minute 128/80 71.2 kg 1.676 m Ana Martinez APRN.CNP 08/05/2018 2:09 PM Addendum Subjective Date of encounter: 07/16/2018 Byron Ambriz (1955), is a 62 year old male who presents for Diabetes management Important Lab History: HBA1C: 07/2016: 6.1%, 08/2016: 6.8%, 05/2017: 6%, 07/2017: 6.8%, 11/2017: 6.6%, 02/2018: 6.5%, 07/2018: 6.2% Thyroid Function Testin05/2017: TSH 1.500 (0.358-3.740 uIU/mL), free T4 0.89 (0.76-1.46 ng/dL), Renal Function Testin08/2016: Creatinine 0.72, 05/2017: creatinine 0.67 mg/dL, eGFR>60, 02/2018: Creatinine 0.65 Urine for Microalbumin: 05/2017: microalbumin to creatinine ratio ok, Lipid Profile: 08/2016: TC 169, HDL 61, LDL 96 TG 58, 02/2018: TC 119, HDL 48, LDL 55, TG 78 Liver Profile: 05/2017: Liver function tests ok, 02/2018: AST 83 (9-37 U/L), ALT, Alkaline Phosphatase ok Dilated Eye Exam: Patient educated to have ophthalmology visits at least once a year. 2006: Around this time diagnosed with Type 2 Diabetes Mellitus. Started on Metformin therapy. 2008: Had pancreatitis. 2015: Around this time, Metformin oral agent discontinued, janumet started. Patient self switched back to solo Metformin therapy around 08/2016. 03/2017: Patient self switched back to Janumet. 05/2017: First time office visit for Type 2 Diabetes Mellitus management. On janumet at this time. 05/2017: Glutamic Acid Decarboxylase (CHERYL-65) antibody <5 0 (<5.0 IU/mL), insulin autoantibody <0.4 (<0.4 U/mL), IA-2 antibody <0.6 (<1.0 U/mL), testing done at [facility]. 05/2017: c-peptide 3.6 (0.8-3.2 ng/mL) with glucose 100 mg/dL, Previous diabetes related labs from [facility] reviewed prior to today's office visit. Any changes made at our last diabetes management visit were abstracted accordingly (if applicable). Today's Office Visit: ? Orals: Metformin 500 mg ER two tabs twice a day, Januvia 100 mg daily self monitoring blood glucose data: see logs, majority readings doing well at this time Note: started on Januvia when in the hospital. Glucose is stable now, no significant low blood sugars. Has a history of pancreatitis- gall bladder induced per patient. I reviewed the association with pancreatitis and that class of drug. I reviewed signs of pancreatitis and when to go to ER. Patient elects to remain on the drug for now Denies frequent periods of hypoglycemia I reviewed and updated the below Review of Systems for today's office visit. Review of Systems Constitutional: Negative for chills, diaphoresis, fever, malaise/fatigue and weight loss. HENT: Negative for congestion, nosebleeds and sore throat. Eyes: Negative for blurred vision, pain and discharge. Respiratory: Negative for cough, hemoptysis, sputum production, shortness of breath and wheezing. Cardiovascular: Negative for chest pain, palpitations, orthopnea and leg swelling. Gastrointestinal: Negative for abdominal pain, blood in stool, constipation, diarrhea, heartburn, nausea and vomiting. Genitourinary: Negative for dysuria, frequency, hematuria and urgency. Musculoskeletal: Negative for back pain, joint pain and myalgias. Skin: Negative for itching and rash. Neurological: Negative for dizziness, tingling, loss of consciousness and headaches. Endo/Heme/Allergies: Negative for polydipsia. Psychiatric/Behavioral: Negative for depression and suicidal ideas. The patient is not nervous/anxious and does not have insomnia. 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 - Seizures (HCC) - Type 2 diabetes mellitus with hyperglycemia (HCC) PAST SURGICAL HISTORY Procedure Laterality Date - COLONOSCOP W/ OR W/O BRSH SPEC 04/15/08 - CORONARY ARTERY BYPASS GRAFT 02/18/2018 x4 - LAP CHOLECYSTECT/CHOLANGIOGRAPHY FAMILY HISTORY Problem Relation Age of Onset - Hypertension Mother - Heart Brother - Lipids Brother Social History Marital status: Spouse name: Years of education: Number of children: Social History Main Topics Smoking status: Never Smoker Smokeless tobacco: Former User Types: Chew Alcohol use: Yes Comment: 1x/month beer Drug use: No Other Topics Concern Service No Blood Transfusions No Caffeine Concern Yes Occupational Exposure No Hobby Hazards No Sleep Concern No Stress Concern Yes Weight Concern No Special Diet Yes Comment:heart healthy Back Care No Exercise No Bike Helmet No Seat Belt Yes Self-Exams No Current Meds metoprolol tartrate, short acting, (LOPRESSOR) 25 mg tablet Take 25 mg by mouth twice daily. metFORMIN ER (GLUCOPHAGE XR) 500 mg 24 hr tablet TAKE 2 TABLETS BEFORE BREAKFAST AND BEFORE AT SUPPER blood sugar diagnostic (FREESTYLE LITE STRIPS) test strip 1x/day lancets (FREESTYLE LANCETS) 28 gauge misc 1x/day Blood-Glucose Meter (FREESTYLE LITE METER) monitoring kit For monitoring sugars 1x/day atorvastatin (LIPITOR) 80 mg tablet Take 1 tablet by mouth daily at bedtime. sitaGLIPtin (JANUVIA) 100 mg tablet Take 1 tablet by mouth once daily. phenytoin ER (DILANTIN) 100 mg ER capsule Take by mouth. 200mg every morning; PM dose alternates between 100mg and 200mg every other day. ASPIRIN ORAL Take by mouth. DOCOSAHEXANOIC ACID/EPA (FISH OIL ORAL) Take by mouth. MULTIVITAMIN TAB Take one(1) tablet daily. Objective BP 128/80 Pulse 62 Ht 5' 6 (1.68m) Wt 156 lb 14.4 oz (71.2kg) BMI 25.34 kg/(m2). Physical Exam Constitutional: He is oriented to person, place, and time and well-developed, well-nourished, and in no distress. He appears not jaundiced. Non-toxic appearance. No distress. HENT: Head: Normocephalic and atraumatic. Eyes: Conjunctivae and EOM are normal. No scleral icterus. Neck: Neck supple. No thyromegaly present. Cardiovascular: Normal rate, regular rhythm and intact distal pulses. Pulmonary/Chest: Effort normal and breath sounds normal. No respiratory distress. He has no wheezes. He has no rales. Abdominal: Soft. There is no tenderness. There is no rebound and no guarding. Musculoskeletal: He exhibits no edema or tenderness. Lymphadenopathy: He has no cervical adenopathy. Neurological: He is alert and oriented to person, place, and time. He has intact cranial nerves. -Sensory: Monofilament Exam- (1) Left Foot Positive, (2) Left Foot Positive, (3) Left Foot Positive, (4) Left Foot Positive (1) Right Foot Positive, (2) Right Foot Positive, (3) Right Foot Positive, (4) Right Foot Positive Montanez: (1) around area of interphalangeal joint of the hallux, (2) around 1st metatarsal head, (3) around 3rd metatarsal head, (4) around 5th metatarsal head Left Foot: No ulceration, Vesicle/Bulla Right Foot: No ulceration, Vesicle/Bulla Skin: Skin is warm and dry. Psychiatric: Mood, affect and judgment normal. His mood appears not anxious. ASSESSMENT/PLAN: 1. Type 2 diabetes mellitus with hyperglycemia, without long- term current use of insulin ([facility]) - ICD9: 250.00, 790.29, ICD10: E11.65 - HGBA1C B/O (AG) - COMP METABOLIC PANEL - TSH BLD - T4 FREE/FREE THYROX - ALBUMIN/CREAT RATIO RND UR Plan of Care: 1. HbA1C 6.2%, improved. 2. Can continue current diabetes medications and dosages for now. 3. Total time for today's office visit was greater than 25 minutes. Greater than 50% of the time was spent in counseling and/or coordination of care. 4. Self monitoring blood glucose log sheet(s) were given to the patient. Instructed to fill out sheets and bring log to next visit. 5. Answered all questions. 6. Patient verbalized understanding of all the above instructions. 7. Discussed therapeutic lifestyle changes. Ana Martinez APRN.PHYSICIAN ASSISTANT PSYCHIATRY ADDENDUM 07/2018: Creatinine 0.82 07/2018: LFTS ok 07/2018: TSH 1.94 (0.358-3.74 uIU/mL), free T4 0.94 (0.76-1.46), 07/2018: Microalbumin:Creatinine Ratio ok Ana Martinez APRN.PHYSICIAN ASSISTANT PSYCHIATRY 08/05/2018 14:08:50 Referring Provider: SELF [[id number]] Allergies As of Date: 07/16/2018 (No Known Allergies) Date Reviewed: 07/16/2018 Reviewed by: Ana Barlow ([facility]) Juan - Fully Assessed Reason for Visit: Diabetes [34] Primary Visit Diagnosis:Type 2 diabetes mellitus with hyperglycemia, without long-term current use of insulin (HCC) [E11.65] Order(s):HGBA1C B/O (AG) [7522465] Order #: [id number] COMP METABOLIC PANEL [SQCMP] Order #: [id number] FUTURE TSH BLD [SQTSH] Order #: [id number] FUTURE T4 FREE/FREE THYROX [SQFT4] Order #: [id number] FUTURE ALBUMIN/CREAT RATIO RND UR [SQUACR] Order #: [id number] FUTURE Prescriptions as of 07/16/2018 Sig: METOPROLOL TARTRATE 25 MG TAB* Take 25 mg by mouth twice yany* METFORMIN ER 500 MG TABLET,EX* TAKE 2 TABLETS BEFORE BREAKFA* BLOOD SUGAR DIAGNOSTIC STRIPS 1x/day LANCETS 28 GAUGE 1x/day BLOOD-GLUCOSE METER KIT For monitoring sugars 1x/day ATORVASTATIN 80 MG TABLET Take 1 tablet by mouth daily * SITAGLIPTIN 100 MG TABLET Take 1 tablet by mouth once d* PHENYTOIN SODIUM EXTENDED 100* Take by mouth. 200mg every mo* ASPIRIN ORAL Take by mouth. FISH OIL ORAL Take by mouth. * MULTIVITAMIN TABLET Take one(1) tablet daily. Problem List As Of Date 07/16/2018 Noted Resolved Pancreatitis [K85.90] INVALID FOR* Type 2 diabetes mellitus with hyperglycemia (HC* NSTEMI (non-ST elevated myocardial infarction) *INVALID FOR* S/P CABG x 4 [Z95.1] INVALID FOR* More... Medications Discontinued During This Encounter furosemide (LASIX) 20 mg tablet 6 ta* 0 03/22/2018 07/16/2018 Class: Med Update Route: ORAL Sig: Take 2 tablets by mouth once daily for 3 days. Disc: Discontinued by another Health Care Provider acetaminophen (TYLENOL) 325 mg tablet 02/23/2018 07/16/2018 Class: OTC Route: ORAL Sig: Take 2 tablets by mouth every 6 hours as needed. Disc: Discontinued by another Health Care Provider clopidogrel (PLAVIX) 75 mg tablet 90 t* 3 03/15/2018 07/16/2018 Class: [facility] Route: ORAL Sig: Take 1 tablet by mouth once daily. Stop taking at 1 year after surgery. Disc: Discontinued by another Health Care Provider metoprolol tartrate, short acting, (* 180 * 3 03/15/2018 07/16/2018 Class: [facility] Route: ORAL Sig: Take 1 tablet by mouth every 12 hours. Disc: Discontinued by another Health Care Provider Disposition: Return in about 4 months (around 11/16/2018). Follow-up and Disposition History Recorded Encounter Status:Closed by ANA MARTINEZ CNP on 07/16/18 PROGRESS Observed: 07/15/2018 Status: COMPLETED Source: [place] 12:25 PM [facility] REPOSITORY HNO ID: [id number] Author: Ana Barlow ([facility]) Juan Service: (none) Author Type: Nurse Practitioner Type: Progress Notes Filed: 07/15/2018 12:27 PM Note Text: Subjective Important Lab History: HBA1C: 07/2016: 6.1%, 08/2016: 6.8%, 05/2017: 6%, 07/2017: 6.8%, 11/2017: 6.6%, 02/2018: 6.5% Thyroid Function Testin05/2017: TSH 1.500 (0.358-3.740 uIU/mL), free T4 0.89 (0.76-1.46 ng/dL), Renal Function Testin08/2016: Creatinine 0.72, 05/2017: creatinine 0.67 mg/dL, eGFR>60, 02/2018: Creatinine 0.65 Urine for Microalbumin: 05/2017: microalbumin to creatinine ratio ok, Lipid Profile: 08/2016: TC 169, HDL 61, LDL 96 TG 58, 02/2018: TC 119, HDL 48, LDL 55, TG 78 Liver Profile: 05/2017: Liver function tests ok, 02/2018: AST 83 (9-37 U/L), ALT, Alkaline Phosphatase ok Dilated Eye Exam: Patient educated to have ophthalmology visits at least once a year. 2007: Around this time diagnosed with Type 2 Diabetes Mellitus. Started on Metformin therapy. 2008: Had pancreatitis. 2015: Around this time, Metformin oral agent discontinued, janumet started. Patient self switched back to solo Metformin therapy around 08/2016. 03/2017: Patient self switched back to Janumet. 05/2017: First time office visit for Type 2 Diabetes Mellitus management. On janumet at this time. 05/2017: Glutamic Acid Decarboxylase (CHERYL-65) antibody <5 0 (<5.0 IU/mL), insulin autoantibody <0.4 (<0.4 U/mL), IA-2 antibody <0.6 (<1.0 U/mL), testing done at [facility]. 05/2017: c-peptide 3.6 (0.8-3.2 ng/mL) with glucose 100 mg/dL, ? Orals: Metformin 500 mg ER two tabs twice a day self monitoring blood glucose data: see logs, occasional elevations depending on the meal type/size. ROS PAST MEDICAL HISTORY Diagnosis Date - Abnormal cardiovascular stress test - CAD (coronary artery disease) - Chest pain - Dyspnea - GERD (gastroesophageal reflux disease) - Hemorrhage of gastrointestinal tract, unspecified - Internal hemorrhoids without mention of complication - Other convulsions none since 1975 - Pancreatitis - S/P CABG x 4 02/18/2018 - Seizures (HCC) - Type 2 diabetes mellitus with hyperglycemia (HCC) PAST SURGICAL HISTORY Procedure Laterality Date - COLONOSCOP W/ OR W/O BRSH SPEC 04/15/08 - CORONARY ARTERY BYPASS GRAFT 02/18/2018 x4 - LAP CHOLECYSTECT/CHOLANGIOGRAPHY FAMILY HISTORY Problem Relation Age of Onset - Hypertension Mother - Heart Brother - Lipids Brother Social History Marital status: Spouse name: Years of education: Number of children: Social History Main Topics Smoking status: Never Smoker Smokeless tobacco: Former User Types: Chew Alcohol use: Yes Comment: 1x/month beer Drug use: No Other Topics Concern Service No Blood Transfusions No Caffeine Concern Yes Occupational Exposure No Hobby Hazards No Sleep Concern No Stress Concern Yes Weight Concern No Special Diet Yes Comment:heart healthy Back Care No Exercise No Bike Helmet No Seat Belt Yes Self-Exams No Current Meds metFORMIN ER (GLUCOPHAGE XR) 500 mg 24 hr tablet TAKE 2 TABLETS BEFORE BREAKFAST AND BEFORE AT SUPPER blood sugar diagnostic (FREESTYLE LITE STRIPS) test strip 1x/day lancets (FREESTYLE LANCETS) 28 gauge misc 1x/day Blood-Glucose Meter (FREESTYLE LITE METER) monitoring kit For monitoring sugars 1x/day furosemide (LASIX) 20 mg tablet Take 2 tablets by mouth once daily for 3 days. atorvastatin (LIPITOR) 80 mg tablet Take 1 tablet by mouth daily at bedtime. clopidogrel (PLAVIX) 75 mg tablet Take 1 tablet by mouth once daily. Stop taking at 1 year after surgery. metoprolol tartrate, short acting, (LOPRESSOR) 50 mg tablet Take 1 tablet by mouth every 12 hours. sitaGLIPtin (JANUVIA) 100 mg tablet Take 1 tablet by mouth once daily. acetaminophen (TYLENOL) 325 mg tablet Take 2 tablets by mouth every 6 hours as needed. phenytoin ER (DILANTIN) 100 mg ER capsule Take by mouth. 200mg every morning; PM dose alternates between 100mg and 200mg every other day. ASPIRIN ORAL Take by mouth. DOCOSAHEXANOIC ACID/EPA (FISH OIL ORAL) Take by mouth. MULTIVITAMIN TAB Take one(1) tablet daily. Objective There were no vitals taken for this visit. Physical Exam OBSOLETE Observed: 06/11/2018 Status: COMPLETED Source: [place] 12:00 AM CLINIC OTHER [place] REPOSITORY Refill (AGENDOG) BYRON AMBRIZ ([id number]) 1955 M Date Time Provider Department 06/11/18 ANA MARTINEZ ([facility])AGENDOG During your visit today, we recorded the following information about you: Carlee Harmon 06/11/2018 1:44 PM Signed Refill request metFORMIN ER (GLUCOPHAGE XR) 500 mg 24 hr tablet [Pharmacy Med Name: METFORMIN HCL ER TABS 500MG] TAKE 2 TABLETS BEFORE BREAKFAST AND BEFORE AT SUPPER Normal, Disp-360 tablet, R-0, Long-term Last OV 07/05/2018 Future OV 07/16/2018 Carlee Harmon MA Allergies As of Date: 06/11/2018 (No Known Allergies) Date Reviewed: 03/22/2018 Reviewed by: Kam Daly) Mabel - Fully Assessed Reason for Visit: Refill Request [94] Order(s):metFORMIN ER (GLUCOPHAGE XR) 500 mg 24 hr tabletTAKE 2 TABLETS BEFORE BREAKFAST AND BEFORE AT SUPPERDisp: 360 tabletRfl: 0 Prescriptions as of 06/11/2018 Sig: METFORMIN ER 500 MG TABLET,EX* TAKE 2 TABLETS BEFORE BREAKFA* BLOOD SUGAR DIAGNOSTIC STRIPS 1x/day LANCETS 28 GAUGE 1x/day BLOOD-GLUCOSE METER KIT For monitoring sugars 1x/day FUROSEMIDE 20 MG TABLET Take 2 tablets by mouth once * ATORVASTATIN 80 MG TABLET Take 1 tablet by mouth daily * CLOPIDOGREL 75 MG TABLET Take 1 tablet by mouth once d* METOPROLOL TARTRATE 50 MG TAB* Take 1 tablet by mouth every * SITAGLIPTIN 100 MG TABLET Take 1 tablet by mouth once d* ACETAMINOPHEN 325 MG TABLET Take 2 tablets by mouth every* PHENYTOIN SODIUM EXTENDED 100* Take by mouth. 200mg every mo* ASPIRIN ORAL Take by mouth. FISH OIL ORAL Take by mouth. * MULTIVITAMIN TABLET Take one(1) tablet daily. Problem List As Of Date 06/11/2018 Noted Resolved Pancreatitis [K85.90] INVALID FOR* Type 2 diabetes mellitus with hyperglycemia (HC* NSTEMI (non-ST elevated myocardial infarction) *INVALID FOR* S/P CABG x 4 [Z95.1] INVALID FOR* More... Prescriptions ordered this encounter Disp Refills Start End METFORMIN ER 500 MG TABLET,EXTENDED * 360 * 0 06/11/2018 Sig: TAKE 2 TABLETS BEFORE BREAKFAST AND BEFORE AT SUPPER Medications Discontinued During This Encounter metFORMIN ER (GLUCOPHAGE XR) 500 mg * 360 * 0 03/29/2018 06/11/2018 Sig: Two tablets before breakfast and before supper Disc: Reason for discontinue is not on file. Encounter Status:Closed by ANA MARTINEZ CNP on 06/11/18 CARDIOLOGY VISIT Observed: 03/29/2018 Status: F Source: [place] RE[facility] 12:21 PM [facility] [place] [place] REPOSITORY [facility] [address] [place] [address]. [address] [place] [address] OFFICE VISIT Date of Service: 03/29/18 MR#: [id number] Acct: [id number] Name: BYRON AMBRIZ Rep #: [id number] : 1955 Provider: Bernardo Louis MD Age/Sex: 62/M Location: [facility] [place] Status: Signed HPI HPI Chief Complaint: Post hospitaliztion Details: BYRON AMBRIZ, is a 62 M who presents to the office today for a follow up evaluation. He had been having chest discomfort since October of this year described as a heaviness and a burning sensation with exertion. He apparently reported this to you in the office he was given an antacid with some improvement in his discomfort initially. He however continued to have the discomfort and was therefore scheduled to undergo a stress test. He had this performed where he exercised to a high metabolic workload of 13.5 metabolic equivalents he did develop chest tightness during the exertion with dissipated on rest. The nuclear images demonstrate evidence of anteroseptal and apical ischemia and hence he was referred here. As you know he does have a history of diabetes mellitus but his cholesterol has been under good control. He has had no neck arm or jaw discomfort and no radiation of this discomfort. No dizziness or diaphoresis and no claudication. He subsequently underwent a cardiac catheterization with demonstrated a totally occluded left anterior descending artery with severe disease involving the first and second diagonal branches moderate disease involving the circumflex artery. He underwent four-vessel coronary bypass surgery with a left internal mammary artery to the left anterior descending artery, free right internal mammary artery to the diagonal branch, saphenous vein graft to the ramus intermedius and obtuse marginal branch. His physical exam demonstrates clear lung lima regular rate and rhythm and no pedal edema. His electrocardiogram done here today demonstrates normal sinus rhythm with a rate of 66 bpm and no acute changes. Poor R-wave progression suggestive of possible previous anterior infarct is present. Intake Vital Signs03/29/18 Height 5 ft 6 in 03/29/18 Weight: 153 lb Intake Visit Reasons: [facility] 02-23 Mold Cooler Required: No Accompanied by: Is patient in pain?: No Allergies No Known Allergies Allergy (Verified 03/29/18 11:58) Medications aspirin 81 mg tablet,delayed release 81 mg PO QDAY tab 01/15/18 [History Confirmed 03/29/18] metformin ER 500 mg tablet,extended release 24 hr 1,000 mg PO BID 90 Days #360 tab 01/15/18 [History Confirmed 03/29/18] multivitamin tablet 1 tab PO QDAY 01/15/18 [History Confirmed 03/29/18] omega-3 fatty acids 1,000 mg capsule 1,000 mg PO QDAY 01/15/18 [History Confirmed 03/29/18] phenytoin sodium extended 100 mg capsule 100 mg PO .COMPLEX 90 Days cap 01/16/18 [History Confirmed 03/29/18] Atorvastatin Calcium [Lipitor] 80 mg PO QHS 03/21/18 [History Confirmed 03/29/18] Sitagliptin Phosphate [Januvia] 100 mg PO DAILY 03/21/18 [History Confirmed 03/21/18] clopidogrel 75 mg tablet 75 mg PO DAILY 03/21/18 [History Confirmed 03/29/18] metoprolol tartrate 50 mg tablet 50 mg PO BID 03/21/18 [History Confirmed 03/29/18] acetaminophen 325 mg tablet 325 mg PO .COMPLEX PRN 03/29/18 [History Confirmed 03/29/18] bisacodyl 10 mg rectal suppository 10 mg RC QDAY PRN 03/29/18 [History Confirmed 03/29/18] hydrocodone 5 mg-acetaminophen 325 mg tablet 1 tab PO Q6H PRN 03/29/18 [History Confirmed 03/29/18] melatonin 3 mg tablet 3 mg PO HS PRN 03/29/18 [History Confirmed 03/29/18] polyethylene glycol 3350 17 gram/dose oral powder PO 03/29/18 [History Confirmed 03/29/18] sennosides 8.6 mg tablet 8.6 mg PO QDAY PRN tab 03/29/18 [History Confirmed 03/29/18] PFS Medical History History of non-ST elevation myocardial infarction (NSTEMI) (Chronic 02/2018) 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 Brother CAD (coronary artery disease) Stented coronary artery Social History Smoking Status: Never smoker ROS Const Const: Positive for other (Post CABG, is in Cardiac Rehab); negative for fatigue, weakness, body ache, fever(s), headache(s), chills, frequent falls, night sweats, daytime sleepiness, difficulty sleeping, excessive sweating, weight gain, weight loss, increased appetite, poor appetite or anorexia Eyes Eyes: Negative for blind spots, loss of peripheral vision, transient loss of vision, blurry vision, change in vision, double vision, floaters, tunnel vision or other ENT ENT: Negative for headache(s), dizziness, hearing loss, tinnitus, Nosebleed/epistaxis, balance problems, post nasal drip, lip swelling, tongue swelling, bleeding gums, hoarseness, neck pain, dry mouth or other Cardio Chest Pain: No Palpitations: No Edema: None Muscle aches with walking: None Resp Respiratory: Negative for SOB with activity, SOB at rest, SOB orthopnea\SOB lying down, Coughing up blood/hemoptysis, chest congestion, pain on inspiration, snoring, stridor, wheezing, crackles, paroxysmal nocturnal dyspnea or other GI GI: Negative nausea, vomiting, heartburn, constipation, belching, bloating, cramping, vomiting blood/hematemesis, bright, red blood in stools, black,tarry stools, loose stools, Difficulty Swallowing or other : Negative for hematuria, frequent nighttime urination/ nocturia, erectile dysfunction or abnormal vaginal bleeding Musc Musc: Negative for balance problems, muscle aches/ myalgia, muscle weakness or joint pain Skin Skin: Positive for other (Midline incision very well approximated, no redness, drainage, swelling ); negative redness, non-healing lesions, rash, unusual bruising, skin ulcer, wounds or jaundice Neuro Neuro: Negative for weakness, headache(s), frequent falls, blurry vision, double vision, dizziness, lightheadedness, near syncope, syncope, orthostatic symptoms, confusion, memory loss, restless legs, vertigo, seizures, lack of coordination or other Winston Hematologic/Lymphatic: Negative for easy bleeding, easy bruising, enlarged lymph nodes or other Endo Endo: Negative for fatigue, excessive sweating, cold intolerance, heat intolerance, flushing, increased thirst/drinking, increased hunger, hair loss, hair growth or other Psych Psych: Negative for anxiety, depression, thoughts of harming anyone, thoughts of harming yourself, visual hallucinations, panic attacks or audible hallucinations Allergy Allergy/Immunology: Negative for lip swelling, Negative for tongue swelling, Negative for rash, Negative for throat swelling, Negative for hives Cardiology Exam Const Appearance: cooperative, healthy appearing, well developed, well groomed and no acute distress Nutritional Appearance: well nourished and average body habitus Orientation: alert, awake and oriented x3 Head Head: normal to inspection, normocephalic and atraumatic Ears: hearing grossly normal bilaterally and external ears normal Nose: external nose normal, nasal mucous membranes and turbinates normal, nares normal, septum normal, no nasal discharge Face and Sinus: face symmetric Mouth: oral mucosae normal, tongue normal, oropharynx normal and moist mucous membranes Teeth and gingiva: dentition normal Throat: posterior oropharynx normal, tonsils normal and uvula midline Eyes General: appearance normal, both eyes and all related structures Eyelids: eyelids normal Conjunctivae: conjunctivae normal Pupils: PERRL, normal by confrontation and accommodation normal EOM: EOM intact bilaterally Neck Neck: normal visual inspection, trachea midline and no JVD JVD: +5 Carotids: normal carotid upstroke and bounding pulses Chest Chest inspection: normal inspection of the chest, symmetric chest movement and normal respiratory effort Auscultation: Bilateral: Clear to Auscultation Cardio Palpation: normal PMI Rate: regular rate Rhythm: regular rhythm Heart sounds: S1 normal, S2 normal and normal, physiologic split S2; negative rub, gallop or murmur GI GI: normal to inspection, soft, no hepatosplenomegaly and bowel sounds present Neuro General: alert, awake, oriented x3, no focal sensory deficit, gait normal and moves all extremities Skin Skin: no rashes or lesions noted Extremities Pulses: Normal: Right Femoral Pulse, Left Femoral Pulse, Right Dorsalis Pedis Pulse, Left Dorsalis Pedis Pulse, Right Posterior Tibial Pulse, Left Posterior Tibial Pulse, Right Radial Pulse, Left Radial Pulse Lower Extremity Edema: None: Bilateral Musculoskel Musculoskeletal: No joint tenderness Psych Psychological: normal affect Assessment AND Plan 1. S/P CABG x 4 Z95.1 02/18/[address] Ty Chappell [facility]: MORALES to LAD, Free ELISE to the diagonal,reversed SVG to Ramus intermedius branch and OM. Plan He is status post coronary bypass surgery he continues to do well he has started cardiac rehabilitation my plan is for him to continue the same his clopidogrel can be discontinued and his metoprolol can be reduced to 25 mg twice a day. He will be followed up in cardiac rehab as well as in the office. Orders Orders: 2. History of non-ST elevation myocardial infarction (NSTEMI) I25.2 Plan He is status post non-ST elevation myocardial infarction he will continue with aspirin as well as the atorvastatin at high dose. Aggressive risk factor modification regarding his diabetes would also be emphasized. I have discussed with him about the recuperation and recovery from the above condition. Thank you for allowing me to participate in the care of your patient. 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) Coding Level of Care Code Off vis,est,level 4 Diagnoses S/P CABG x 4 Z95.1 History of non-ST elevation myocardial infarction (NSTEMI) I25.2 Coding Level of Care Code Off vis,est,level 4 Diagnoses S/P CABG x 4 Z95.1 History of non-ST elevation myocardial infarction (NSTEMI) I25.2 03/29/18 1221 <Electronically signed by Bernardo Louis MD> Date Bernardo Louis MD Cosigner Signature: Date (if applicable) CC: Libby Arias MD OBSOLETE Observed: 03/28/2018 Status: COMPLETED Source: [place] 12:00 AM CLINIC OTHER [facility]AMP[facility] REPOSITORY Refill (AGENDOG) DEONBYRON Foley ([id number]) 1955 M Date Time Provider Department 03/28/18 ANA MARTINEZ ([facility])AGENDOG During your visit today, we recorded the following information about you: Allergies As of Date: 03/28/2018 (No Known Allergies) Date Reviewed: 03/22/2018 Reviewed by: Kam ([facility]) Mabel - Fully Assessed Reason for Visit: Refill Request [94] Order(s):metFORMIN ER (GLUCOPHAGE XR) 500 mg 24 hr tabletTwo tablets before breakfast and before supperDisp: 360 tabletRfl: 0 Prescriptions as of 03/28/2018 Sig: METFORMIN ER 500 MG TABLET,EX* Two tablets before breakfast * ATORVASTATIN 80 MG TABLET Take 1 tablet by mouth daily * CLOPIDOGREL 75 MG TABLET Take 1 tablet by mouth once d* METOPROLOL TARTRATE 50 MG TAB* Take 1 tablet by mouth every * SITAGLIPTIN 100 MG TABLET Take 1 tablet by mouth once d* ACETAMINOPHEN 325 MG TABLET Take 2 tablets by mouth every* PHENYTOIN SODIUM EXTENDED 100* Take by mouth. 200mg every mo* ASPIRIN ORAL Take by mouth. FISH OIL ORAL Take by mouth. * MULTIVITAMIN TABLET Take one(1) tablet daily. Problem List As Of Date 03/28/2018 Noted Resolved Pancreatitis [K85.90] INVALID FOR* Type 2 diabetes mellitus with hyperglycemia (HC* NSTEMI (non-ST elevated myocardial infarction) *INVALID FOR* S/P CABG x 4 [Z95.1] INVALID FOR* More... Prescriptions ordered this encounter Disp Refills Start End METFORMIN ER 500 MG TABLET,EXTENDED * 360 * 0 03/29/2018 Sig: Two tablets before breakfast and before supper Medications Discontinued During This Encounter metFORMIN ER (GLUCOPHAGE XR) 500 mg * 360 * 1 08/27/2017 03/29/2018 Route: ORAL Sig: Take 2 tablets by mouth twice daily. Disc: Reason for discontinue is not on file. Encounter Status:Closed by ANA MARTINEZ CNP on 6/22/18 XR CHEST 2V FRONTAL/LAT Observed: 03/25/2018 Status: F Source: [place] 2:30 PM [facility] REPOSITORY * * *Final Report* * * DATE OF EXAM: Mar 25 2018 2:30PM [id number] - XR CHEST 2V FRONTAL/LAT / PROCEDURE REASON: Presence of aortocoronary bypass graft * * * * Physician Interpretation * * * * EXAMINATION: CHEST RADIOGRAPH (2 VIEW FRONTAL and LATERAL) Clinical History: Presence of aortocoronary bypass graft MQ: [id number]_5 Comparison: Chest x-ray on 03/20/2018 RESULT: Lines, tubes, and devices: None. Lungs and pleura: No new consolidation. A few linear opacities again demonstrated overlying the left lower lung. No lung mass. Stable left-sided small pleural effusion versus pleural thickening. Cardiomediastinal silhouette: Normal cardiomediastinal silhouette. Other: Status post median sternotomy and probably CABG. IMPRESSION: Overall findings unchanged. Pattern Wheel Maker: PSCHilton Transcribe Date/Time: Mar 25 2018 5:05P Dictated by : LOU GUERRIER MD This examination was interpreted and the report reviewed and electronically signed by: LOU GUERRIER MD on Mar 25 2018 5:07PM EST [id number] PROGRESS Observed: 03/25/2018 Status: COMPLETED Source: [place] 2:25 PM [facility] REPOSITORY HNO ID: [id number] Author: Allison Orozco (Rt) Service: (none) Author Type: Human Resources Technician Type: Progress Notes Filed: 03/25/2018 2:31 PM Note Text: Radiology Service Progress Note PATIENT NAME: Byron Ambriz DATE OF SERVICE: March 25, 2018 TIME: 2:25 PM PATIENT IDENTITY VERIFICATION COMPLETED USING TWO (2) METHODS: Patient confirmed name verbally and Date of . PATIENT GENDER DATA: Male PATIENT RELEVANT IMPLANT DATA REVIEWED: Not Applicable RADIOLOGY DEPARTMENT: General X-ray: Exam(s) Completed: Chest X-Ray PERIPHERAL IV DATA: Not applicable SIGNED BY: RT Ernesto March 25, 2018 2:25 PM PROGRESS Observed: 03/22/2018 Status: COMPLETED Source: [place] 1:52 PM [facility] REPOSITORY HNO ID: [id number] Author: Kam Bermudez Service: (none) Author Type: Nurse Practitioner Type: Progress Notes Filed: 03/22/2018 1:59 PM Note Text: HPI: Byron Ambriz is a 62 year old male that returns to the office today for one week post-discharge follow up for unstable angina NSTEMI s/p CABGX4 morales-lad; elise-diag; svg-RI; svg-OM; evh performed on 02/18/[address] Chappell. His post-operative course was uncomplicated. He was discharged on 02/23/2018. ? Today, he reports he is doing quite well. He has lost about 10 lbs total since surgery, he lacks an appetite. He denies pain, SOB, TORO. CXR reveals a small Left pleural effusion. He starts rehab on Sunday. Subjective: Current Outpatient Prescriptions: atorvastatin (LIPITOR) 80 mg tablet Take 1 tablet by mouth daily at bedtime. clopidogrel (PLAVIX) 75 mg tablet Take 1 tablet by mouth once daily. Stop taking at 1 year after surgery. metoprolol tartrate, short acting, (LOPRESSOR) 50 mg tablet Take 1 tablet by mouth every 12 hours. sitaGLIPtin (JANUVIA) 100 mg tablet Take 1 tablet by mouth once daily. acetaminophen (TYLENOL) 325 mg tablet Take 2 tablets by mouth every 6 hours as needed. metFORMIN ER (GLUCOPHAGE XR) 500 mg 24 hr tablet Take 2 tablets by mouth twice daily. phenytoin ER (DILANTIN) 100 mg ER capsule Take by mouth. 200mg every morning; PM dose alternates between 100mg and 200mg every other day. ASPIRIN ORAL Take by mouth. DOCOSAHEXANOIC ACID/EPA (FISH OIL ORAL) Take by mouth. MULTIVITAMIN TAB Take one(1) tablet daily. furosemide (LASIX) 20 mg tablet Take 2 tablets by mouth once daily for 3 days. No current facility-administered medications for this visit. Patient has no known allergies. PAST MEDICAL HISTORY Diagnosis Date - Abnormal cardiovascular stress test - CAD (coronary artery disease) - Chest pain - Dyspnea - GERD (gastroesophageal reflux disease) - Hemorrhage of gastrointestinal tract, unspecified - Internal hemorrhoids without mention of complication - Other convulsions none since 1975 - Pancreatitis - S/P CABG x 4 02/18/2018 - Seizures (HCC) - Type 2 diabetes mellitus with hyperglycemia (HCC) PAST SURGICAL HISTORY Procedure Laterality Date - COLONOSCOP W/ OR W/O BRS SPEC 04/15/08 - CORONARY ARTERY BYPASS GRAFT 02/18/2018 x4 - LAP CHOLECYSTECT/CHOLANGIOGRAPHY FAMILY HISTORY Problem Relation Age of Onset - Hypertension Mother - Heart Brother - Lipids Brother Social History Substance Use Topics - Smoking status: Never Smoker - Smokeless tobacco: Former User Types: Chew - Alcohol use Yes Comment: 1x/month beer Review of Systems Constitutional: Positive for weight loss. Negative for chills, fever and malaise/fatigue. HENT: Positive for ear pain (Pre-auricular). Negative for sore throat. Respiratory: Negative for cough, sputum production, shortness of breath and wheezing. Cardiovascular: Negative for chest pain, palpitations, orthopnea, claudication, leg swelling and PND. Gastrointestinal: Negative for abdominal pain, blood in stool, constipation, diarrhea, melena, nausea and vomiting. Genitourinary: Negative for dysuria. Musculoskeletal: Negative for falls and joint pain. Skin: No new lesions Neurological: Negative for dizziness, tingling, sensory change, focal weakness, weakness and headaches. Endo/Heme/Allergies: Does not bruise/bleed easily. Psychiatric/Behavioral: Negative for depression. Objective: One month post- op Chest X-ray is done and reviewed today. RESULT: The heart size is normal. ?Patient is status post sternotomy. ? The lung lima are clear of infiltrate. ? No mediastinal or hilar adenopathy. ? Density within the left lung base consistent with pleural fluid. ? Degenerative spine changes are noted. Physical Examination: Vitals:BP 118/70 Pulse 71 Ht 5' 6 (1.68m) Wt 155 lb 8 oz (70.5kg) SpO2 98% BMI 25.11 kg/(m2). BP w/Orthostatic Vitals Date and Time Orthostatic BP Orthostatic Pulse BP Pulse BP Position BP Site BP Cuff Size 03/22/18 1302 -- -- 118/70 71 Sitting Left Arm -- Last 2 Encounter Wt Readings: Date: Wt: 03/22/2018 155 lb 8 oz (70.5 kg) 03/01/2018 158 lb (71.7 kg) Physical Exam Constitutional: He is oriented to person, place, and time and well-developed, well-nourished, and in no distress. HENT: Head: Normocephalic. Eyes: Pupils are equal, round, and reactive to light. Cardiovascular: Normal rate, regular rhythm, S1 normal, S2 normal and intact distal pulses. No murmur heard. Pulmonary/Chest: Effort normal and breath sounds normal. Abdominal: Soft. Normal appearance and bowel sounds are normal. Musculoskeletal: Normal range of motion. He exhibits no edema. Neurological: He is alert and oriented to person, place, and time. Gait normal. Skin: Skin is warm and intact. Midsternal incision clean dry, well approximated, no redness or drainage Sternum is stable CT sites with scabbs SVG site clean dry, no redness, drainage, or hematoma Psychiatric: Mood and affect normal. Assessment and Plan: ASSESSMENT/PLAN: 1. S/P CABG x 4 - ICD9: V45.81, ICD10: Z95.1 -Small left pleural effusion - Lasix 40 mg x 3 days then repeat CXR - XR CHEST 2V FRONTAL/LAT Kam Bermudez APRN.CNP In summary, Patient is doing well overall after the MCABG sugery, with no major complaints. Patient is released to drive, work. Patient should start cardiac rehab from this point on. he should follow up with his enlisted advisor and PCP as scheduled, and only needs to be seen here on a as needed basis. Thanks. Electronically signed by Kam Bermudez APRN.CNP on March 22, 2018, 1:52 PM CNOV Observed: 03/22/2018 Status: COMPLETED Source: [place] 1:00 PM CLINIC OTHER CAMPUS REPOSITORY Office Visit (AGVASACC) BYRON AMBRIZ ([id number]) 1955 M Date Time Provider Department 03/22/18 1:00 PM KAM BERMUDEZ ([place]) ALYCIA During your visit today, we recorded the following information about you: Pulse Blood pressure Weight Height 71/minute 118/70 70.5 kg 1.676 m Kam Bermudez APRN.CNP 03/22/2018 1:45 PM Addendum - You may drive! - Please begin cardiac rehab. If they have not contacted you, please call them: - Weight bearing restriction remains: No lifting more than 10 lbs. You may begin to gradually increase the amount of weight bearing. Cardiac rehab will help with this. - Please see your enlisted advisor regularly. They will take over medication management. - Please feel free to call us if you have any post-operative concerns. Take lasix for 3 days, then get Chest X-ray on Sunday. See Dr Louis and the diabetes GAMING ASSOCIATE 2-3 weeks Thank you for coming to see me today!! Kam Bermudez APRN.LE Bermudez APRN.LE 03/22/2018 1:59 PM Signed HPI: Byron Ambriz is a 62 year old male that returns to the office today for one week post-discharge follow up for unstable angina NSTEMI s/p CABGX4 morales-lad; elise-diag; svg-RI; svg-OM; evh performed on 02/18/[address] Chappell. His post-operative course was uncomplicated. He was discharged on 02/23/2018. ? Today, he reports he is doing quite well. He has lost about 10 lbs total since surgery, he lacks an appetite. He denies pain, SOB, TORO. CXR reveals a small Left pleural effusion. He starts rehab on Sunday. Subjective: Current Outpatient Prescriptions: atorvastatin (LIPITOR) 80 mg tablet Take 1 tablet by mouth daily at bedtime. clopidogrel (PLAVIX) 75 mg tablet Take 1 tablet by mouth once daily. Stop taking at 1 year after surgery. metoprolol tartrate, short acting, (LOPRESSOR) 50 mg tablet Take 1 tablet by mouth every 12 hours. sitaGLIPtin (JANUVIA) 100 mg tablet Take 1 tablet by mouth once daily. acetaminophen (TYLENOL) 325 mg tablet Take 2 tablets by mouth every 6 hours as needed. metFORMIN ER (GLUCOPHAGE XR) 500 mg 24 hr tablet Take 2 tablets by mouth twice daily. phenytoin ER (DILANTIN) 100 mg ER capsule Take by mouth. 200mg every morning; PM dose alternates between 100mg and 200mg every other day. ASPIRIN ORAL Take by mouth. DOCOSAHEXANOIC ACID/EPA (FISH OIL ORAL) Take by mouth. MULTIVITAMIN TAB Take one(1) tablet daily. furosemide (LASIX) 20 mg tablet Take 2 tablets by mouth once daily for 3 days. No current facility-administered medications for this visit. Patient has no known allergies. 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 Negative for chills, fever and malaise/fatigue. HENT: Positive for ear pain (Pre-auricular). Negative for sore throat. Respiratory: Negative for cough, sputum production, shortness of breath and wheezing. Cardiovascular: Negative for chest pain, palpitations, orthopnea, claudication, leg swelling and PND. Gastrointestinal: Negative for abdominal pain, blood in stool, constipation, diarrhea, melena, nausea and vomiting. Genitourinary: Negative for dysuria. Musculoskeletal: Negative for falls and joint pain. Skin: No new lesions Neurological: Negative for dizziness, tingling, sensory change, focal weakness, weakness and headaches. Endo/Heme/Allergies: Does not bruise/bleed easily. Psychiatric/Behavioral: Negative for depression. Objective: One month post- op Chest X-ray is done and reviewed today. RESULT: The heart size is normal. ?Patient is status post sternotomy. ? The lung lima are clear of infiltrate. ? No mediastinal or hilar adenopathy. ? Density within the left lung base consistent with pleural fluid. ? Degenerative spine changes are noted. Physical Examination: Vitals:BP 118/70 Pulse 71 Ht 5' 6 (1.68m) Wt 155 lb 8 oz (70.5kg) SpO2 98% BMI 25.11 kg/(m2). BP w/Orthostatic Vitals Date and Time Orthostatic BP Orthostatic Pulse BP Pulse BP Position BP Site BP Cuff Size 03/22/18 1302 -- -- 118/70 71 Sitting Left Arm -- Last 2 Encounter Wt Readings: Date: Wt: 03/22/2018 155 lb 8 oz (70.5 kg) 03/01/2018 158 lb (71.7 kg) Physical Exam Constitutional: He is oriented to person, place, and time and well-developed, well-nourished, and in no distress. HENT: Head: Normocephalic. Eyes: Pupils are equal, round, and reactive to light. Cardiovascular: Normal rate, regular rhythm, S1 normal, S2 normal and intact distal pulses. No murmur heard. Pulmonary/Chest: Effort normal and breath sounds normal. Abdominal: Soft. Normal appearance and bowel sounds are normal. Musculoskeletal: Normal range of motion. He exhibits no edema. Neurological: He is alert and oriented to person, place, and time. Gait normal. Skin: Skin is warm and intact. Midsternal incision clean dry, well approximated, no redness or drainage Sternum is stable CT sites with scabbs SVG site clean dry, no redness, drainage, or hematoma Psychiatric: Mood and affect normal. Assessment and Plan: ASSESSMENT/PLAN: 1. S/P CABG x 4 - ICD9: V45.81, ICD10: Z95.1 -Small left pleural effusion - Lasix 40 mg x 3 days then repeat CXR - XR CHEST 2V FRONTAL/LAT Kam Bermudez APRN.CNP In summary, [facility], with no major complaints. Patient is released to drive, work. Patient should start cardiac rehab from this point on. he should follow up with his enlisted advisor and PCP as scheduled, and only needs to be seen here on a as needed basis. Thanks. Electronically signed by Kam Bermudez APRN.CNP on March 22, 2018, 1:52 PM Referring Provider: LIBBY ARIAS [[id number]] Allergies As of Date: 03/22/2018 (No Known Allergies) Date Reviewed: 03/22/2018 Reviewed by: Kam (Le) Mabel - Fully Assessed Reason for Visit: Post Op [174] Cmt: s/p CABG Primary Visit Diagnosis:S/P CABG x 4 [Z95.1] Order(s):XR CHEST 2V FRONTAL/LAT [[id number]] Order #: [id number] FUTURE furosemide (LASIX) 20 mg tabletTake 2 tablets by mouth once daily for 3 days.Disp: 6 tabletRfl: 0 Prescriptions as of 03/22/2018 Sig: ATORVASTATIN 80 MG TABLET Take 1 tablet by mouth daily * CLOPIDOGREL 75 MG TABLET Take 1 tablet by mouth once d* METOPROLOL TARTRATE 50 MG TAB* Take 1 tablet by mouth every * SITAGLIPTIN 100 MG TABLET Take 1 tablet by mouth once d* ACETAMINOPHEN 325 MG TABLET Take 2 tablets by mouth every* METFORMIN ER 500 MG TABLET,EX* Take 2 tablets by mouth twice* PHENYTOIN SODIUM EXTENDED 100* Take by mouth. 200mg every mo* ASPIRIN ORAL Take by mouth. FISH OIL ORAL Take by mouth. * MULTIVITAMIN TABLET Take one(1) tablet daily. FUROSEMIDE 20 MG TABLET Take 2 tablets by mouth once * Problem List As Of Date 03/22/2018 Noted Resolved Pancreatitis [K85.90] INVALID FOR* Type 2 diabetes mellitus with hyperglycemia (HC* NSTEMI (non-ST elevated myocardial infarction) *INVALID FOR* S/P CABG x 4 [Z95.1] INVALID FOR* More... Other instructions from your clinician: - You may drive! - Please begin cardiac rehab. If they have not contacted you, please call them: - Weight bearing restriction remains: No lifting more than 10 lbs. You may begin to gradually increase the amount of weight bearing. Cardiac rehab will help with this. - Please see your enlisted advisor regularly. They will take over medication management. - Please feel free to call us if you have any post-operative concerns. Take lasix for 3 days, then get Chest X-ray on Sunday. See Dr Louis and the diabetes GAMING ASSOCIATE 2-3 weeks Thank you for coming to see me today!! Kam Bermudez APRN.PHYSICIAN ASSISTANT PSYCHIATRY Prescriptions ordered this encounter Disp Refills Start End FUROSEMIDE 20 MG TABLET 3 ta* 0 03/22/2018 03/22/2018 Route: ORAL Sig: Take 2 tablets by mouth once daily for 3 days. FUROSEMIDE 20 MG TABLET 6 ta* 0 03/22/2018 03/25/2018 Class: Med Update Route: ORAL Sig: Take 2 tablets by mouth once daily for 3 days. Medications Discontinued During This Encounter melatonin 3 mg tablet 02/23/2018 03/22/2018 Class: OTC Route: ORAL Sig: Take 1 tablet by mouth at bedtime as needed (insomnia). Patient not taking: Reported on 03/01/2018 Disc: Reason for discontinue is not on file. furosemide (LASIX) 20 mg tablet 3 ta* 0 03/22/2018 03/22/2018 Route: ORAL Sig: Take 2 tablets by mouth once daily for 3 days. Disc: Reason for discontinue is not on file. Encounter Status:Closed by KAM BERMUDEZ CNP on 03/22/18 CR - HISTORY AND Observed: 03/21/2018 Status: F Source: [facility] 3:38 PM [facility] [place], [place] REPOSITORY [facility] Cardiac Rehab [address] [place] [address] CR - History AND Physical MR#: [id number] Acct: [id number] Name: BYRON AMBRIZ Rep #: [id number] : 1955 62 From: Ricardo Su RN PCP: Libby Arias MD DOS: 03/21/18 CR - History AND Physical - General Arrival date:: 03/21/18 Arrival time:: 12:55 Date of Referral:: 03/21/18 Date of CR Evaluation:: 03/21/18 Referring Physician: Dr. Edi Louis Primary Diagnosis: CABG x 4 - History of Present Cardiac Event Onset Date: Enter Onset Date of cardiac illnesses in Comment field below Current stable Angina Pectoris:: Yes - 02/16/18 Acute Myocardial Infarction within 12 months:: Yes - 02/16/18 Coronary Artery Bypass Graft:: Yes - x 4 02/18/18 Heart valve replacement or repair:: No PTCA or coronary stenting:: No Heart or Heart-Lung Transplant:: No Heart Failure EF <35%:: No Type of Symptoms:: Chest pain Interventions with present event:: Stress test, heart cath, CABG Were there any complications?: no - Medications Home Medications: Ambulatory Orders Medication Instructions Recorded aspirin 81 mg tablet,delayed 81 mg PO QDAY tab 01/15/18 release metformin ER 500 mg 1,000 mg PO BID 90 Days #360 tab 01/15/18 - Allergies Allergies/Adverse Reactions: Allergies No Known Allergies Allergy (Verified 02/16/18 10:44) - Sleep Disorder Evaluation Hx of Sleep Apnea: No Do you snore loudly (louder than talking or can be heard through closed doors)?: No Do you often feel tired/ fatigued/ sleepy during daytime?: No Has anyone observed you stop breathing during sleep?: No History of Hypertension (for STOP score): No STOP Results: Negative Advanced Directives - Advanced Directives Power of Chief Bank Examiner: No Living Will: No Advance Directives Information Provided: Yes Advance Directives on File: No DNR Order?:: No Past Medical History - Past Medical Illness Medical History: Past Medical History (Last Reviewed 01/16/18 @ 16:56 by Bernardo Louis MD) GERD (gastroesophageal reflux disease) (Chronic) K21.9 Type 2 diabetes mellitus without complications (Chronic) E11.9 Seizure disorder (Chronic) G40.909 Dyspnea (Acute) R06.00 Chest pain (Acute) R07.9 Abnormal cardiovascular stress test (Acute) R94.39 - Past Surgical History Surgical History: Past Surgical History (Last Reviewed 01/16/18 @ 16:56 by Bernardo Louis MD) History of colonoscopy (Chronic) Z98.890 2008 History of cholecystectomy (Chronic) Z90.49 - Family History Summary Family History: Family History (Last Reviewed 01/16/18 @ 16:56 by Bernardo Louis MD) Mother , age 89 Hypertension Father , age 60's from rare neurological condition No problems noted. Brother CAD (coronary artery disease) Stented coronary artery Social History - Smoking History Smoking Status: Never smoker - Alcohol Use Alcohol Usage: Yes - once a month maybe - Substance Abuse Hx Substance Use: No - Occupation Occupation (List type of work in comments):: Retired - Hobbies, Recreation, Social Activities Hobbies: Other - gardening Recreational Activities: I am able to engage in a few activities Social Environment - Status Marital Status: - Current Living Arrangements Living Environment:: Spouse - Children How many children do you have?: 2 Do any of your children live nearby?: No - Safety Do you feel safe in your surroundings?: Yes - Assistance Do you need any assistance at home?: mowing right now. Review of Systems - Review of Systems Hints: Right click = Denies (Slash). Left click = Reports ([place]) Review of Present Symptoms: Reports: Operative Discomfort - 1 on a 1:10 scale, Fatigue, Appetite - Normal - no desire to eat right now., Appetite - Special Diet - Cardiac Diabetic diet., Sleep - Normal. Denies: Shortness of Breath at Rest, Shortness of Breath with Exertion, PVD, Angina, Wound Healing, Dizziness/Lightheadedness, Heart Arrhythmia/Irregularities, Sexual Changes - Pain Is Patient Pain Free?: No Pain Location: chest Pain Level: 1/10 Previous experience dealing with pain?: Tylenol prn pain. Risk Factor Assessment - Chief Complaint Chief Complaint: Bored and wants to do stuff. - Pulse Pulse Rate: 80 Pulse Rhythm: Regular - Hypertension Blood Pressure Sitting - Right Arm: 120/86 Blood Pressure Sitting - Left Arm: 114/82 - Blood Cholesterol/Lipids Total Cholesterol (mg/dL) Goal = less than 200 mg/dL: 169 HDL Cholesterol (mg/dL) Goal = less than 40 mg/dL: 61 LDL Cholesterol (mg/dL) Goal = less than 70 mg/dL: 96 - Diabetes Diabetic History: Type II, Medication Dependent Nutrition Referral for Diabetes: Yes - Obesity Height: 1.68 m Weight:: 68.039 kg Weight in Pounds: 150.0 lbs Weight Source: Standing Scale Body Mass Index (BMI): 24.2 Nutritional Referral for Obesity: No - Physical Inactivity Physical Inactivity: Reg Exercise 30 min/day - Risk Stratification Risk Guidelines: Lowest Risk: Risk Factor for Smoking, Risk Factor for Dyslipidemia, Risk Factor for Obesity, Risk Factor for Hypertension, Risk Factor for Sedentary Lifestyle, Risk Factor for Depression, Moderate Risk: Risk Factor for Diabetes - For Smoking Smoking Risk Guidelines: Smoking Low Risk: None or quit greater than 6 months ago. Smoking Moderate Risk: Smoker or quit 6 months or less ago. Smoking High Risk: Smoker - For Dyslipidemia Dyslipidemia Risk Guidelines: Low Risk: Moderate Risk: High Risk: 15-25% fat 25.1-29% fat >/= 30% fat. <7% sat fat 7-9% sat fat >9% sat fat. <150 mg chol 150-299 mg chol >/= 300 mg chol. LDL <100 LDL 100-129 LDL >/= 130. Chol/HDL ratio <5.0 Chol/HDL ratio 5.0-6.0 Chol/HDL ratio >6.0. Triglycerides <100 Triglycerides 100-149 Triglycerides >/= 150 - For Diabetes Mellitus Diabetes Risk Guidelines: Diabetes Low Risk: HgA1c <6.5% and/or FBG <120. Diabetes Moderate Risk: HgA1c 6.6-7.9% and/or FBG 120- 180. Diabetes High Risk: HgA1c >/= 8% and/or FBG >180 - For Obesity/Overweight Obesity/Overweight Risk Guidelines: Obesity Low Risk: BMI <25.0. Obesity Moderate Risk: BMI 25-29.9. Obesity High Risk: BMI >/= 30.0 - For Hypertension Hypertension Risk Guidelines: Hypertension Low Risk: Systolic <120 and Diastolic <80. Hypertension Moderate Risk: Systolic 120-139 and Diastolic 80-89. Hypertension High Risk: Systolic >/= 140 and Diastolic >/= 90 - For Sedentary Lifestyle Sedentary Lifestyle Risk Guidelines: Sedentary Lifestyle Low Risk: >/= 1,500 kcal/week. Sedentary Lifestyle Moderate Risk: 700-1,499 kcal/week. Sedentary Lifestyle High Risk: < 700 kcal/week - For Depression Depression Risk Guidelines: Depression Low Risk: Not clinically depressed. Depression Moderate Risk: Mildly depressed. Depression High Risk: Clinically depressed - Family History Family History: Family History (Last Reviewed 01/16/18 @ 16:56 by Bernardo Louis MD) Mother Hypertension Father No problems noted. Brother CAD (coronary artery disease) Stented coronary artery Motivation - Motivation to Participate On a scale of 1 to 10, how prepared are you to commit to attending program?: 8 03/21/18 1422 <Electronically signed by Ricardo Su RN> Date Ricardo Su RN Outcome assessment reviewed. Exercise plan approved as documented. Treatment plan and goals support patient needs/abilities. Continue with current plan. I certify the patient demonstrates improvement and remains willing and capable of participation. the patient continues to benefit from cardiac rehab services/training. The patient may continue at current intensity, endurance and modality and progress per protocol. 03/21/18 1538 <Electronically signed by Bernardo Louis MD> Cosigner Signature: Date Bernardo Louis MD CC: Signed XR CHEST 2V FRONTAL/LAT Observed: 03/20/2018 Status: F Source: [place] 11:56 AM [facility] [place] REPOSITORY * * *Final Report* * * DATE OF EXAM: Mar 20 2018 11:56AM [id number] [id number] - XR CHEST 2V FRONTAL/LAT / PROCEDURE REASON: Presence of aortocoronary bypass graft * * * * Physician Interpretation * * * * XR CHEST 2V FRONTAL/LAT INDICATION: Presence of aortocoronary bypass graft 62 years/Male RESULT: The heart size is normal. Patient is status post sternotomy. The lung lima are clear of infiltrate. No mediastinal or hilar adenopathy. Density within the left lung base consistent with pleural fluid. Degenerative spine changes are noted. IMPRESSION: No infiltrate Left pleural fluid Pattern Wheel Maker: ISIAH Transcribe Date/Time: Mar 20 2018 6:41P Dictated by : MARCIE ALEXANDER MD This examination was interpreted and the report reviewed and electronically signed by: MARCIE ALEXANDER MD on Mar 20 2018 6:42PM EST [id number] Observed: 03/20/2018 Status: COMPLETED Source: [place] 11:48 AM [facility] REPOSITORY HNO ID: [id number] Author: Allison Yo (Rt) Service: (none) Author Type: Human Resources Technician Type: Progress Notes Filed: 03/20/2018 11:56 AM Note Text: Radiology Service Progress Note PATIENT NAME: Byron Ambriz DATE OF SERVICE: March 20, 2018 TIME: 11:48 AM PATIENT IDENTITY VERIFICATION COMPLETED USING TWO (2) METHODS: Patient confirmed name verbally and Date of . PATIENT GENDER DATA: Male PATIENT RELEVANT IMPLANT DATA REVIEWED: Not Applicable RADIOLOGY DEPARTMENT: General X-ray: Exam(s) Completed: Chest X-Ray PERIPHERAL IV DATA: Not applicable SIGNED BY: RT Sanaz March 20, 2018 11:48 AM OBSOLETE Observed: 03/15/2018 Status: COMPLETED Source: [place] 12:00 AM [facility] REPOSITORY Refill ([facility]) KATINABYRON ([id number]) 1955 M Date Time Provider Department 03/15/18 KAM BERMUDEZ ([facility]) [place] During your visit today, we recorded the following information about you: Allergies As of Date: 03/15/2018 (No Known Allergies) Date Reviewed: 03/01/2018 Reviewed by: Kam ([facility]) Mabel - Fully Assessed Reason for Visit: Refill Request [94] Order(s):atorvastatin (LIPITOR) 80 mg tabletTake 1 tablet by mouth daily at bedtime.Disp: 90 tabletRfl: 3 clopidogrel (PLAVIX) 75 mg tabletTake 1 tablet by mouth once daily. Stop taking at 1 year after surgery.Disp: 90 tabletRfl: 3 metoprolol tartrate, short acting, (LOPRESSOR) 50 mg tabletTake 1 tablet by mouth every 12 hours.Disp: 180 tabletRfl: 3 sitaGLIPtin (JANUVIA) 100 mg tabletTake 1 tablet by mouth once daily.Disp: 90 tabletRfl: 2 Prescriptions as of 03/15/2018 Sig: ATORVASTATIN 80 MG TABLET Take 1 tablet by mouth daily * CLOPIDOGREL 75 MG TABLET Take 1 tablet by mouth once d* METOPROLOL TARTRATE 50 MG TAB* Take 1 tablet by mouth every * SITAGLIPTIN 100 MG TABLET Take 1 tablet by mouth once d* ACETAMINOPHEN 325 MG TABLET Take 2 tablets by mouth every* MELATONIN 3 MG TABLET Take 1 tablet by mouth at bed* Patient not taking: Reported on 03/01/2018 METFORMIN ER 500 MG TABLET,EX* Take 2 tablets by mouth twice* PHENYTOIN SODIUM EXTENDED 100* Take by mouth. 200mg every mo* ASPIRIN ORAL Take by mouth. FISH OIL ORAL Take by mouth. * MULTIVITAMIN TABLET Take one(1) tablet daily. Problem List As Of Date 03/15/2018 Noted Resolved Pancreatitis [K85.90] INVALID FOR* Type 2 diabetes mellitus with hyperglycemia (HC* NSTEMI (non-ST elevated myocardial infarction) *INVALID FOR* S/P CABG x 4 [Z95.1] INVALID FOR* More... Prescriptions ordered this encounter Disp Refills Start End ATORVASTATIN 80 MG TABLET 90 t* 3 03/15/2018 Class: [facility] Route: ORAL Sig: Take 1 tablet by mouth daily at bedtime. CLOPIDOGREL 75 MG TABLET 90 t* 3 03/15/2018 Class: [facility] Route: ORAL Sig: Take 1 tablet by mouth once daily. Stop taking at 1 year after surgery. METOPROLOL TARTRATE 50 MG TABLET 180 * 3 03/15/2018 Class: [facility] Route: ORAL Sig: Take 1 tablet by mouth every 12 hours. SITAGLIPTIN 100 MG TABLET 90 t* 2 03/15/2018 Class: [facility] Route: ORAL Sig: Take 1 tablet by mouth once daily. Medications Discontinued During This Encounter atorvastatin (LIPITOR) 80 mg tablet 30 t* 2 02/23/2018 03/15/2018 Class: [facility] Route: ORAL Sig: Take 1 tablet by mouth daily at bedtime. Disc: Reason for discontinue is not on file. clopidogrel (PLAVIX) 75 mg tablet 30 t* 2 02/24/2018 03/15/2018 Class: Print RX Route: ORAL Sig: Take 1 tablet by mouth once daily. Disc: Reason for discontinue is not on file. metoprolol tartrate, short acting, (* 60 t* 0 02/23/2018 03/15/2018 Class: Print RX Route: ORAL Sig: Take 1 tablet by mouth every 12 hours. Disc: Reason for discontinue is not on file. sitaGLIPtin (JANUVIA) 100 mg tablet 30 t* 1 02/23/2018 03/15/2018 Route: ORAL Sig: Take 1 tablet by mouth once daily. Disc: Reason for discontinue is not on file. Encounter Status:Closed by KAM BERMUDEZ CNP on 03/15/18 PROGRESS Observed: 03/01/2018 Status: COMPLETED Source: [place] 5:53 PM [facility] REPOSITORY HNO ID: [id number] Author: Kam Bermudez Service: (none) Author Type: Nurse Practitioner Type: Progress Notes Filed: 03/01/2018 6:00 PM Note Text: HPI:Byron Ambriz is a 62 year old male that returns to the office today for one week post-discharge follow up for unstable angina NSTEMI s/p CABGX4 morales-lad; elise-diag; svg-RI; svg-OM; evh performed on 02/18/[address] Chappell. His post-operative course was uncomplicated. He was discharged on 02/23/2018. Today, he reports he is doing quite well, ahead of the recovery time. He is walking, eating, but not much of an appetite, normal BM, denies SOB, TORO, CP, or edema. He is asking about increasing activity. Subjective: Current Outpatient Prescriptions: acetaminophen (TYLENOL) 325 mg tablet Take 2 tablets by mouth every 6 hours as needed. atorvastatin (LIPITOR) 80 mg tablet Take 1 tablet by mouth daily at bedtime. metoprolol tartrate, short acting, (LOPRESSOR) 50 mg tablet Take 1 tablet by mouth every 12 hours. clopidogrel (PLAVIX) 75 mg tablet Take 1 tablet by mouth once daily. sitaGLIPtin (JANUVIA) 100 mg tablet Take 1 tablet by mouth once daily. metFORMIN ER (GLUCOPHAGE XR) 500 mg 24 hr tablet Take 2 tablets by mouth twice daily. phenytoin ER (DILANTIN) 100 mg ER capsule Take by mouth. 200mg every morning; PM dose alternates between 100mg and 200mg every other day. ASPIRIN ORAL Take by mouth. DOCOSAHEXANOIC ACID/EPA (FISH OIL ORAL) Take by mouth. MULTIVITAMIN TAB Take one(1) tablet daily. melatonin 3 mg tablet Take 1 tablet by mouth at bedtime as needed (insomnia). (Patient not taking: Reported on 03/01/2018 ) No current facility-administered medications for this visit. Patient has no known allergies. PAST MEDICAL HISTORY Diagnosis Date - Abnormal cardiovascular stress test - CAD (coronary artery disease) - Chest pain - Dyspnea - GERD (gastroesophageal reflux disease) - Hemorrhage of gastrointestinal tract, unspecified - Internal hemorrhoids without mention of complication - Other convulsions none since 1975 - Pancreatitis - Seizures (HCC) - Type 2 diabetes mellitus with hyperglycemia (HCC) PAST SURGICAL HISTORY Procedure Laterality Date - COLONOSCOP W/ OR W/O [facility] SPEC 04/15/08 - CORONARY ARTERY BYPASS GRAFT 02/18/2018 x4 - LAP CHOLECYSTECT/CHOLANGIOGRAPHY FAMILY HISTORY Problem Relation Age of Onset - Hypertension Mother - Heart Brother - Lipids Brother Social History Substance Use Topics - Smoking status: Never Smoker - Smokeless tobacco: Former User Types: Chew - Alcohol use Yes Comment: 1x/month beer Review of Systems Constitutional: Negative for chills, fever, malaise/fatigue and weight loss. HENT: Negative for sore throat. Respiratory: Negative for cough, sputum production, shortness of breath and wheezing. Cardiovascular: Negative for chest pain, palpitations, orthopnea, claudication, leg swelling and PND. Gastrointestinal: Negative for abdominal pain, blood in stool, constipation, diarrhea, melena, nausea and vomiting. Genitourinary: Negative for dysuria. Musculoskeletal: Negative for falls and joint pain. Skin: No new lesions Neurological: Negative for dizziness, tingling, sensory change, focal weakness, weakness and headaches. Endo/Heme/Allergies: Does not bruise/bleed easily. Psychiatric/Behavioral: Negative for depression. Objective: Physical Examination: Vitals:BP 112/70 Pulse 77 Resp 12 Ht 5' 6 (1.68m) Wt 158 lb (71.7kg) SpO2 98% BMI 25.51 kg/(m2). Extended Vitals not filed for this encounter. Last 2 Encounter Wt Readings: Date: Wt: 03/01/2018 158 lb (71.7 kg) 02/16/2018 162 lb 14.7 oz (73.9 kg) Physical Exam Constitutional: He is oriented to person, place, and time and well-developed, well-nourished, and in no distress. HENT: Head: Normocephalic. Eyes: Pupils are equal, round, and reactive to light. Cardiovascular: Normal rate, regular rhythm, S1 normal, S2 normal and intact distal pulses. No murmur heard. Pulmonary/Chest: Effort normal and breath sounds normal. Abdominal: Soft. Normal appearance and bowel sounds are normal. Musculoskeletal: He exhibits no edema. Neurological: He is alert and oriented to person, place, and time. Skin: Skin is warm and intact. Midsternal incision clean dry, well approximated, no redness or drainage CT sites scabbed and healing Sternum is stable SVG site clean dry, no redness, drainage, or hematoma Psychiatric: Mood and affect normal. Assessment and Plan: ASSESSMENT/PLAN: 1. S/P CABG x 4 - ICD9: V45.81, ICD10: Z95.1 - Continue with current medication regimen - CONSULT TO CARD REHAB PHASE II At [facility] - XR CHEST 2V FRONTAL/LAT Kam Bermudez, REFINERY OPERATOR ALKYLATION.PHYSICIAN ASSISTANT PSYCHIATRY In summary, Patient is doing well overall after the MCABG sugery, with no major complaints. We would like to have patient follow up in 3 weeks with CXR. Electronically signed by Kam Bermudez APRN.CNP on March 01, 2018, 5:53 PM CNOV Observed: 03/01/2018 Status: COMPLETED Source: [place] 3:00 PM CLINIC OTHER [place] REPOSITORY Office Visit (AGVAS[facility]) BYRON AMBRIZ ([id number]) 1955 M Date Time Provider Department 03/01/18 3:00 PM KAM BERMUDEZ (LE) [facility]AS[facility] During your visit today, we recorded the following information about you: Pulse Respiration Blood pressure Weight 77/minute 12/minute 112/70 71.7 kg Height 1.676 m Kam Bermudez APRN.CNP 03/01/2018 3:31 PM Addendum -Please follow-up with your primary care physician and your enlisted advisor in 3-4 weeks -Please return to cardiac surgery in 3-4 weeks with a chest x-ray done before the appointment -Restriction remain: No lifting more than 10 lbs and No driving. -Cardiac rehab has been consulted. You will be able to begin cardiac rehab after your next visit with us. [phone] ([facility]) or [phone] ([facility] AND [facility]) -Feel free to call us if you have questions or concerns Thank you for coming to see me today! Kam Bermudez APRN.CNP [phone] Kam Bermudez APRN.CNP 03/01/2018 6:00 PM Signed HPI:Byron Ambriz is a 62 year old male that returns to the office today for one week post-discharge follow up for unstable angina NSTEMI s/p CABGX4 morales-lad; elise-diag; svg-RI; svg-OM; evh performed on 02/18/[address] Lahorra. His post-operative course was uncomplicated. He was discharged on 02/23/2018. Today, he reports he is doing quite well, ahead of the recovery time. He is walking, eating, but not much of an appetite, normal BM, denies SOB, TORO, CP, or edema. He is asking about increasing activity. Subjective: Current Outpatient Prescriptions: acetaminophen (TYLENOL) 325 mg tablet Take 2 tablets by mouth every 6 hours as needed. atorvastatin (LIPITOR) 80 mg tablet Take 1 tablet by mouth daily at bedtime. metoprolol tartrate, short acting, (LOPRESSOR) 50 mg tablet Take 1 tablet by mouth every 12 hours. clopidogrel (PLAVIX) 75 mg tablet Take 1 tablet by mouth once daily. sitaGLIPtin (JANUVIA) 100 mg tablet Take 1 tablet by mouth once daily. metFORMIN ER (GLUCOPHAGE XR) 500 mg 24 hr tablet Take 2 tablets by mouth twice daily. phenytoin ER (DILANTIN) 100 mg ER capsule Take by mouth. 200mg every morning; PM dose alternates between 100mg and 200mg every other day. ASPIRIN ORAL Take by mouth. DOCOSAHEXANOIC ACID/EPA (FISH OIL ORAL) Take by mouth. MULTIVITAMIN TAB Take one(1) tablet daily. melatonin 3 mg tablet Take 1 tablet by mouth at bedtime as needed (insomnia). (Patient not taking: Reported on 03/01/2018 ) No current facility-administered medications for this visit. Patient has no known allergies. PAST MEDICAL HISTORY Diagnosis Date - Abnormal cardiovascular stress test - CAD (coronary artery disease) - Chest pain - Dyspnea - GERD (gastroesophageal reflux disease) - Hemorrhage of gastrointestinal tract, unspecified - Internal hemorrhoids without mention of complication - Other convulsions none since 1975 - Pancreatitis - Seizures (HCC) - Type 2 diabetes mellitus with hyperglycemia (HCC) PAST SURGICAL HISTORY Procedure Laterality Date - COLONOSCOP W/ OR W/O BRSH SPEC 04/15/08 - CORONARY ARTERY BYPASS GRAFT 02/18/2018 x4 - LAP CHOLECYSTECT/CHOLANGIOGRAPHY FAMILY HISTORY Problem Relation Age of Onset - Hypertension Mother - Heart Brother - Lipids Brother Social History Substance Use Topics - Smoking status: Never Smoker - Smokeless tobacco: Former User Types: Chew - Alcohol use Yes Comment: 1x/month beer Review of Systems Constitutional: Negative for chills, fever, malaise/fatigue and weight loss. HENT: Negative for sore throat. Respiratory: Negative for cough, sputum production, shortness of breath and wheezing. Cardiovascular: Negative for chest pain, palpitations, orthopnea, claudication, leg swelling and PND. Gastrointestinal: Negative for abdominal pain, blood in stool, constipation, diarrhea, melena, nausea and vomiting. Genitourinary: Negative for dysuria. Musculoskeletal: Negative for falls and joint pain. Skin: No new lesions Neurological: Negative for dizziness, tingling, sensory change, focal weakness, weakness and headaches. Endo/Heme/Allergies: Does not bruise/bleed easily. Psychiatric/Behavioral: Negative for depression. Objective: Physical Examination: Vitals:BP 112/70 Pulse 77 Resp 12 Ht 5' 6 (1.68m) Wt 158 lb (71.7kg) SpO2 98% BMI 25.51 kg/(m2). Extended Vitals not filed for this encounter. Last 2 Encounter Wt Readings: Date: Wt: 03/01/2018 158 lb (71.7 kg) 02/16/2018 162 lb 14.7 oz (73.9 kg) Physical Exam Constitutional: He is oriented to person, place, and time and well-developed, well-nourished, and in no distress. HENT: Head: Normocephalic. Eyes: Pupils are equal, round, and reactive to light. Cardiovascular: Normal rate, regular rhythm, S1 normal, S2 normal and intact distal pulses. No murmur heard. Pulmonary/Chest: Effort normal and breath sounds normal. Abdominal: Soft. Normal appearance and bowel sounds are normal. Musculoskeletal: He exhibits no edema. Neurological: He is alert and oriented to person, place, and time. Skin: Skin is warm and intact. Midsternal incision clean dry, well approximated, no redness or drainage CT sites scabbed and healing Sternum is stable SVG site clean dry, no redness, drainage, or hematoma Psychiatric: Mood and affect normal. Assessment and Plan: ASSESSMENT/PLAN: 1. S/P CABG x 4 - ICD9: V45.81, ICD10: Z95.1 - Continue with current medication regimen - CONSULT TO CARD REHAB PHASE II At [facility] - XR CHEST 2V FRONTAL/LAT Kam Bermudez, REFINERY OPERATOR ALKYLATION.PHYSICIAN ASSISTANT PSYCHIATRY In summary, Patient is doing well overall after the MCABG sugery, with no major complaints. We would like to have patient follow up in 3 weeks with CXR. Electronically signed by Kam Bermudez APRN.CNP on March 01, 2018, 5:53 PM Referring Provider: LIBBY ARIAS [[id number]] Allergies As of Date: 03/01/2018 (No Known Allergies) Date Reviewed: 03/01/2018 Reviewed by: Kam (Le) Mabel - Fully Assessed Reason for Visit: Post-Op Visit [1236] Cmt: CABG x 4 02-18-18 Primary Visit Diagnosis:S/P CABG x 4 [Z95.1] Order(s):CONSULT TO CARD REHAB PHASE II [] Order #: [id number]: 1 XR CHEST 2V FRONTAL/LAT [[id number]] Order #: [id number] FUTURE Prescriptions as of 03/01/2018 Sig: ACETAMINOPHEN 325 MG TABLET Take 2 tablets by mouth every* ATORVASTATIN 80 MG TABLET Take 1 tablet by mouth daily * METOPROLOL TARTRATE 50 MG TAB* Take 1 tablet by mouth every * CLOPIDOGREL 75 MG TABLET Take 1 tablet by mouth once d* SITAGLIPTIN 100 MG TABLET Take 1 tablet by mouth once d* METFORMIN ER 500 MG TABLET,EX* Take 2 tablets by mouth twice* PHENYTOIN SODIUM EXTENDED 100* Take by mouth. 200mg every mo* ASPIRIN ORAL Take by mouth. FISH OIL ORAL Take by mouth. * MULTIVITAMIN TABLET Take one(1) tablet daily. MELATONIN 3 MG TABLET Take 1 tablet by mouth at bed* Patient not taking: Reported on 03/01/2018 Problem List As Of Date 03/01/2018 Noted Resolved Pancreatitis [K85.90] INVALID FOR* Type 2 diabetes mellitus with hyperglycemia (HC* NSTEMI (non-ST elevated myocardial infarction) *INVALID FOR* S/P CABG x 4 [Z95.1] INVALID FOR* More... Other instructions from your clinician: -Please follow-up with your primary care physician and your enlisted advisor in 3-4 weeks -Please return to cardiac surgery in 3-4 weeks with a chest x-ray done before the appointment -Restriction remain: No lifting more than 10 lbs and No driving. -Cardiac rehab has been consulted. You will be able to begin cardiac rehab after your next visit with us. [phone] ([facility]) or [phone] ([facility]) -Feel free to call us if you have questions or concerns Thank you for coming to see me today! Kam Bermudez APRN.PHYSICIAN ASSISTANT PSYCHIATRY [phone] Medications Discontinued During This Encounter senna-docusate (SENNA-S) 8.6-50 mg p* 02/23/2018 03/01/2018 Class: OTC Route: ORAL Sig: Take 1 tablet by mouth twice daily. Patient not taking: Reported on 03/01/2018 Disc: Reason for discontinue is not on file. polyethylene glycol 3350 (MIRALAX, G* 02/24/2018 03/01/2018 Class: OTC Route: ORAL Sig: Take 1 Packet by mouth once daily. Patient not taking: Reported on 03/01/2018 Disc: Reason for discontinue is not on file. HYDROcodone-acetaminophen (NORCO) 5-* 28 t* 0 02/23/2018 03/01/2018 Class: Print RX Route: ORAL Sig: Take 1 tablet by mouth every 6 hours as needed for Pain for up to 7 days. Earliest Fill Date: 02/23/18 Patient not taking: Reported on 03/01/2018 Disc: Reason for discontinue is not on file. bisacodyl (DULCOLAX) 10 mg supp 02/23/2018 03/01/2018 Class: OTC Route: RECTAL Si Suppository by RECTAL route as needed for up to 1 dose. Patient not taking: Reported on 03/01/2018 Disc: Reason for discontinue is not on file. Disposition: Return in about 3 weeks (around 03/22/2018). Follow-up and Disposition History Recorded Encounter Status:Closed by KAM BERMUDEZ CNP on 03/01/18 CONSULT PROG Observed: 02/23/2018 Status: COMPLETED Source: [place] 11:33 AM CLINIC OTHER CAMPUS REPOSITORY HNO ID: [id number] Author: Prosper Tyson Service: Endocrinology Author Type: Physician Type: Consult Progress Note Filed: 02/23/2018 11:34 AM Note Text: ENDOCRINOLOGY CONSULT PROGRESS NOTE SERVICE DATE: 02/23/2018 SERVICE TIME: 11:33 AM Subjective INTERVAL HPI: Patient being discharged today. Felling well. Up walking in hallway. Current hospital medications: insulin lispro 6 Units pen (rapid acting) (HumaLOG KWIKPEN) 6 Units SUBCUTANEOUS TID w MEALS metFORMIN 500 mg tab(s) (GLUCOPHAGE) 500 mg ORAL BID w MEALS sitaGLIPtin 100 mg tab(s) (JANUVIA) 100 mg ORAL DAILY metoprolol tartrate (short acting) 50 mg tab(s) (LOPRESSOR) 50 mg ORAL q 12 H 0.9% NaCl 2-10 mL 2-10 mL INTRAVENOUS q 12 H bisacodyl 10 mg suppository (DULCOLAX) 10 mg RECTAL PRN melatonin 3 mg tab(s) 3 mg ORAL HS PRN clopidogrel 75 mg tab(s) (PLAVIX) 75 mg ORAL DAILY HYDROcodone 5 mg - acetaminophen 325 mg tablet (NORCO) 1-2 tablet ORAL q 4 H PRN aspirin 81 mg chewable tab(s) 81 mg ORAL DAILY phenytoin ER 200 mg cap(s) (DILANTIN) 200 mg ORAL DAILY phenytoin ER 200 mg cap(s) (DILANTIN) 200 mg ORAL q 48 HR phenytoin ER 100 mg cap(s) (DILANTIN) 100 mg ORAL q [address] 40 mg tab(s) (PROTONIX) 40 mg ORAL DAILY (6 AM) morphine 2-4 mg injection 2-4 mg INTRAVENOUS q 4 H PRN polyethylene glycol 3350 17 g packet (MIRALAX, GLYCOLAX) 17 g ORAL DAILY senna-docusate 8.6-50 mg 1 tablet (SENNA-S) 1 tablet ORAL BID dextrose 40 % 15 g 15 g ORAL PRN glucagon 1 mg injection (GLUCAGEN) 1 mg INTRAMUSCULAR PRN dextrose 50% in water 25 mL syringe 12.5 g INTRAVENOUS PRN acetaminophen 650 mg tab(s) (TYLENOL) 650 mg ORAL q 6 H PRN enoxaparin 40 mg injection (LOVENOX) 40 mg SUBCUTANEOUS DAILY albuterol 2.5 mg /3 mL (0.083 %) 2.5 mg (PROVENTIL) 2.5 mg INHALATION q 2 H PRN atorvastatin 80 mg tab(s) (LIPITOR) 80 mg ORAL AT BEDTIME Objective PHYSICAL EXAM: GENERAL: Alert, no distress, cooperative BP 136/82 Pulse 90 Temp (Src) 98.2 (Oral) Resp 18 Ht 5' 6 (1.68m) Wt 162 lb 14.7 oz (73.9kg) SpO2 96% BMI 26.31 kg/(m2). DATA: Diagnostic tests reviewed for today's visit: Most recent labs Glucose (mg/dL) Date Value 02/22/2018 161 Potassium (mEq/L) Date Value 02/22/2018 3.9 Sodium (mEq/L) Date Value 02/22/2018 139 Chloride (mEq/L) Date Value 02/22/2018 105 CO2 (mEq/L) Date Value 02/22/2018 28 Creatinine (mg/dL) Date Value 02/22/2018 0.65 BUN (mg/dL) Date Value 02/22/2018 8 Anion Gap (no units) Date Value 02/22/2018 10 Calcium (mg/dL) Date Value 02/22/2018 8.7 Hemoglobin A1C Date Value Ref Range Status 02/16/2018 6.5 (H) 4.2 - 6.3 % Final Comment: Method is National Glycohemoglobin Standardization Program (NGSP) compliant. Assessment/Plan Active Problems: Diabetes Mellitus Blood sugars a little high. Discharge on metformin 1g bid Januvia 100 mg daily rx sent to his [facility] pharmacy Discussed plan with patient and . SIGNATURE: Prosper Tyson MD PATIENT NAME: Byron Ambriz DATE: February 23, 2018 TIME: 11:33 AM PAGER: [phone] CNDS Observed: 02/23/2018 Status: COMPLETED Source: [place] 11:21 AM [facility] OTHER CAMPUS REPOSITORY HNO ID: [id number] Author: Cathleen France (Pa) Service: Cardiac Surgery Author Type: Physician Clinical Documentation Manager Type: Discharge Summaries Filed: 02/23/2018 11:25 AM Note Text: Attestation signed by Ty Chappell at 02/24/2018 9:23 AM Attending Note I evaluated the patient and personally participated in the montanez components. I agree with the resident's findings and plan as documented and have discussed the case and management of the patient's care with the resident. Signature: Ty Chappell MD Date: 02/24/2018 Time: 9:23 AM DISCHARGE SUMMARY PATIENT NAME: Byron Ambriz Admission Information Admission Information ADMIT DATE: 02/16/2018 DISCHARGE DATE: 02/23/2018 MY DOCTORS AND MEDICAL TEAM: My Main Hospital Doctor: Ty Chappell Primary Care Provider: Libby Arias MD My Medical Team Members: Treatment Team: Attending Provider: Ty Chappell Consulting: Radames Romero Consulting: Marcie Lerma MY CONDITION AT DISCHARGE: Stable REASON I WAS IN THE HOSPITAL: Chest Pain SUMMARY OF WHAT HAPPENED WHILE I WAS IN THE HOSPITAL: Friday 02/16 came to hospital and diagnosed with NSTEMI, troponin 14 and was admitted to intensive care unit with CTS consult. Underwent CABG x4 with Dr. Chappell on 02/18. Post-operative recovery was unremarkable. Started on BB on POD2, pacing wire removed on POD 3 and was trasferred to [facility] on the same day. Recovery continued to be unremarkable and discharged home on POD#5. OTHER PROBLEMS/DIAGNOSIS: Active Problems: NSTEMI (non-ST elevated myocardial infarction) (HCC) S/P CABG x 4 Resolved Problems: * No resolved hospital problems. * OPERATIONS PERFORMED WHILE IN THE HOSPITAL: Coronary Artery Bypass Grafting IMPORTANT TEST/PROCEDURES: Echocardiogram TEST RESULTS NOT AVAILABLE AT THIS TIME: No pending results Discharge Disposition Discharge Disposition: Home With Home Care Activity When You Leave the Hospital Lifting is restricted to: 10 lbs May use stairs No walking restrictions Take showers, not baths, until your wound is completely healed For Pain When You Leave the Hospital Use acetaminophen (Tylenol) as recommended on the bottle Wound/Surgical Site Care Any bruising and bumps should disappear within 3-4 days Avoid lotions or powders Check your wound every day For wounds with dermabond, allow the dermabond to wear off If the bruising expands or the bump enlarges please call your doctor Some bruising, soreness or a small bump under the skin at the inserion site is normal Call Your Doctor If There is an unusual odor from the wound area There is severe pain at the operative site You have a severe headache You have lightheadedness, fainting, or confusion You have persistent nausea/vomiting over 24 hours You have redness, swelling, pus or drainage from the wound You have swollen glands or cold and clammy skin Your temperature is greater than 101F Follow Up Appointments Follow-Up Appointment When: In 1 week Patient/Parents to call for appointment?: Scheduled Diana (Le) APRN. [facility] [phone] [facility] [address] [address] [id number] PCP Requested Referral FOLLOW-UP APPOINTMENTS ALREADY SCHEDULED WITH A [facility] PROVIDER: Future Appointments Date Time Provider Department Center 07/05/2018 1:00 PM Ana Barlow (Le) [facility] DISCHARGE MEDICATION: Current Discharge Medication List START taking these medications acetaminophen (TYLENOL) 650 mg Take 650 mg by mouth every 6 hours as needed. polyethylene glycol 3350 (MIRALAX, GLYCOLAX) 17 g Take 17 g by mouth once daily. senna-docusate (SENNA-S) 1 tablet Take 1 tablet by mouth twice daily. bisacodyl (DULCOLAX) 10 mg 10 mg by RECTAL route as needed. HYDROcodone-acetaminophen (NORCO) 1 tablet Take 1 tablet by mouth every 6 hours as needed for Pain. Earliest Fill Date: 02/23/18 Qty: 28 tablet Refills: 0 Associated Diagnoses:S/P CABG x 4; NSTEMI (non-ST elevated myocardial infarction) (HCC) melatonin 3 mg Take 3 mg by mouth at bedtime as needed (insomnia). atorvastatin (LIPITOR) 80 mg Take 80 mg by mouth daily at bedtime. Qty: 30 tablet Refills: 2 metoprolol tartrate (short acting) (LOPRESSOR) 50 mg Take 50 mg by mouth every 12 hours. Qty: 60 tablet Refills: 0 CONTINUE these medications which have CHANGED clopidogrel (PLAVIX) 75 mg Take 75 mg by mouth once daily. Qty: 30 tablet Refills: 2 CONTINUE these medications which have NOT CHANGED metFORMIN ER (GLUCOPHAGE XR) 1,000 mg Take 1,000 mg by mouth twice daily. Qty: 360 tablet Refills: 1 phenytoin ER (DILANTIN) 100 mg ER capsule Take by mouth. 200mg every morning; PM dose alternates between 100mg and 200mg every other day. ASPIRIN ORAL Take by mouth. DOCOSAHEXANOIC ACID/EPA (FISH OIL ORAL) Take by mouth. MULTIVITAMIN TAB Take one(1) tablet daily. Refills: 0 STOP taking these medications pantoprazole DR (PROTONIX) 40 mg Comments: Reason for Stopping: defer physical exam, duplicated note TIME OF CARE: Discharge Management: I personally spent greater than 30 minutes involved in the discharge management of this patient. SIGNATURE: Cathleen France PA-C PAGER/CONTACT #: [phone] DATE: February 23, 2018 TIME: 11:21 AM GLUCOSE METER Collected: 02/23/2018 Status: F Source: [facility] 11:19 AM HEALTH SYSTEM REPOSITORY TYPE CODE TESTS RESULT OUT OF REFERENCE UNITS RANGE LAB GLUBL(LOINC 70-99 mg/dL ) High Glucose Meter 277 Performed By: #### GLMET #### [place] [id number] PROGRESS Observed: 02/23/2018 Status: COMPLETED Source: [place] 9:33 AM CLINIC OTHER CAMPUS REPOSITORY HNO ID: [id number] Author: Cathleen France (Pa) Service: Cardiac Surgery Author Type: Physician Clinical Documentation Manager Type: Progress Notes Filed: 02/23/2018 9:38 AM Note Text: CARDIOTHORACIC SURGERY POSTOP PROGRESS NOTE SERVICE DATE: 02/23/2018 SERVICE TIME: 9:33 AM Subjective S/P SURGERY: Procedure(s) (LRB): BYPASS GRAFT ARTERY CORONARY ON-PUMP TWO CORONARY ARTERIAL GRAFTS (N/A) BYPASS GRAFT ARTERY CORONARY ON-PUMP USING VENOUS GRAFT(S) AND ARTERIAL GRAFT(S); TWO VENOUS GRAFTS (N/A) ENDOSCOPIC HARVEST VEIN FOR CORONARY ARTERY BYPASS PROCEDURE (N/A) DATE OF SURGERY: 02/18/2018 POSTOP DAY #5 LOS: 7 INTERVAL EVENTS / PERTINENT ROS: This is a 62 year old male who presented with a recent history of exertional angina. Stress test was positive 12/18/17:+ reversible anteroseptal and apical ischemia with EF of 60%. 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 He was referred for outpatient cardiac surgery eval. Sunday he lifted bags of mulch resulting in persisting chest pressure. He presented Friday 02/16?with NSTEMI, troponin 14 and was admitted to intensive care unit with CTS consult. He underwent CABG x4 with Dr. Chappell on 02/18. Post-operative recovery was unremarkable. Started on BB on POD2, pacing wire removed on POD 3 and was trasferred to [facility] on the same day. Today: Saw patient after walk. Denies chest pain, SOB, N/V. Ready to go home. Objective Admission Weight: 75.1 kg (165 lb 9.1 oz) BP 136/82 Pulse 90 Temp 36.8 ?C (98.2 ?F) (Oral) Resp 18 Ht 167.6 cm (5' 6) Wt 73.9 kg (162 lb 14.7 oz) SpO2 96% BMI 26.30 kg/m? Body surface area is 1.86 meters squared. Min/Max/Average Temperature AND Blood Pressure: Temp (24hrs), Av.9 ?C (98.5 ?F), Min:36.7 ?C (98.1 ?F), Max:37.5 ?C (99.5 ?F) Systolic (24hrs), Av , Min:118 , Max:141 Diastolic (24hrs), Av, Min:72, Max:82 Intake/Output Summary (Last 24 hours) at 02/23/18 0974 Last data filed at 02/23/18 0457 Gross per 24 hour Intake 1020 ml Output 1750 ml Net -730 ml TELEMETRY: normal sinus rhythm PHYSICAL EXAM: General Appearance: Well developed and well nourished appearance. No acute distress. Skin: No rash on chest, arms or legs. Warm, dry. Midsternal AND SVG incision dry AND intact, without redness, drainage or edema. Head/Eyes: Sclera clear, normal conjunctiva. EOMI Lungs: Normal respiratory effort. Clear lungs without rhonchi, rales, wheezing. Heart: regular rhythm and S1, S2 normal Peripheral Vascular/Arteries: pulses intact Abdomen: soft, non-tender and bowel sounds present Neurologic/Psychiatric: Oriented to person, place, time. Normal affect. No gross focal neurologic deficits. Extremities: normal exam of the extremities Lines, Drains, and Airways Line Central Line Quadruple Lumen 02/18/18 0915 Right Neck 5 days DATA: Recent Labs 02/22/18 0400 02/21/18 0605 RBC 3.61* 3.34* WBC 5.85 5.57 HB 11.0* 10.3* HCT 32.1* 29.5* PLT 192 128* NA 139 138 K 3.9 3.8 CHLOR 105 106 CO2 28 30 BUN 8 8 CREAT 0.65* 0.61* GLUC 161* 161* CA 8.7 8.3* ANION 10 6* Assessment/Plan CABG - 4 vessel 02/18. - on ASA 81, statin 80, beta radha 25 bid, up to 25 TID - plavix started 02/21 s/p wire removal - Pain control. ? anticipated Post-Op hypoxia: - on RA? - IS/deep breathing. ? Anticipated post-op anemia: - Hgb stable post op. ? FEN: - Tolerating cardiac diet. - Lytes WNL today. ? ?? DM: - off insulin drip. - appreciate endo recs - likely will go home without need for insulin. ? 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 ? DVT ppx: - lovenox and SCDs Tests/Labs Ordered: 1. None SIGNATURE: Cathleen France PA-C PATIENT NAME: Byron Ambriz DATE: February 23, 2018 TIME: 9:33 AM PAGER/CONTACT #: [phone] [id number] GLUCOSE METER Collected: 02/23/2018 Status: F Source: [facility] 7:21 AM HEALTH SYSTEM REPOSITORY TYPE CODE TESTS RESULT OUT OF REFERENCE UNITS RANGE LAB GLUBL(LOINC 70-99 mg/dL ) High Glucose Meter 199 Performed By: #### GLMET #### [place] [id number] GLUCOSE METER Collected: 02/22/2018 Status: F [facility]: [facility] [facility] REPOSITORY TYPE CODE TESTS RESULT OUT OF REFERENCE UNITS RANGE LAB GLUBL(LOINC 70-99 mg/dL ) High Glucose Meter 180 Result Comment: RN NOTIFIED Performed By: #### GLMET #### [facility] [address], [place] [address] GLUCOSE METER Collected: 02/22/2018 Status: F Source: [facility] 4:47 PM HEALTH SYSTEM REPOSITORY TYPE CODE TESTS RESULT OUT OF REFERENCE UNITS RANGE LAB GLUBL(LOINC 70-99 mg/dL ) High Glucose Meter 200 Result Comment: RN NOTIFIED Performed By: #### GLMET #### [facility] [address] [place], [place] [address] NUTRITION Observed: 02/22/2018 Status: COMPLETED Source: [place] 12:57 PM CLINIC OTHER CAMPUS REPOSITORY [facility]NO ID: [id number] Author: Amanda Devine) HARLEEN Ernst Service: Nutrition Therapy Author Type: Registered Dietitian Type: Nutrition Filed: 02/22/2018 1:07 PM Note Text: NUTRITION THERAPY PATIENT EDUCATION SERVICE DATE: 02/22/2018 SERVICE TIME: 12:58 PM TOPIC: Cardiac Rehab: Therapeutic Lifestyle Changes (TLC), Dietary Approaches to stop Hypertension (DASH) and Diabetic - Carbohydrate Controlled Diagnosis: ADULT: Coronary Artery Disease READINESS TO LEARN Cognitive Ability: Alert and oriented Motivation to Learn: Interested Family Support: Unable to assess - Family not present Instruction Provided to: Patient Patient Learns Best by: Multiple Methods Factors Affecting Learning: None Physical Limitations Affecting Learning: None LEARNING RESPONSE Patient / Family Response: Verbalizes understanding of Heart Healthy (CTS) Diet: Consuming 30% or less calories from fat, of which no more than 7% are saturated fat calories; no more than 200 mg cholesterol/day; and 2 grams of sodium Electrolyte Controlled 2-4 gm Sodium Diet: Rationale behind diet restriction; foods typically high in sodium; reading a food label, tips for reducing sodium in cooking and calculating daily sodium consumption. Method of Instruction: Individual instruction Written instruction - handouts Verbal instruction Instructional Aids Used:Heart Disease Nutrition Therapy Supplemental Material Provided to Patient: None Follow-Up Plan: Recommend - Recommend continued instruction and follow up as directed Contact information given. Referral (Recommendation): Nutrition - Outpatient and Primary Care Provider MNT Billing: Initial Assess/15 min 2 units SIGNATURE: Amanda Ernst RD, JOSEF PATIENT NAME: Byron Ambriz DATE: February 22, 2018 TIME: 12:58 PM PAGER: [phone] ALLIED HEALTH Observed: 02/22/2018 Status: COMPLETED Source: [place] 11:47 AM CLINIC OTHER CAMPUS REPOSITORY [facility] ID: [id number] Author: Lena Orozco (Ex Phys) El Service: Cardiac Rehab Author Type: Investor Relations Specialist Type: Allied Health Filed: 02/22/2018 11:50 AM Note Text: CARDIAC REHABILITATION PATIENT EDUCATION PROGRESS NOTE Name: Byron Ambriz Date of Service: 02/22/18 Time of Service: 11:47 AM ASSESSMENT: Risk Factors Identified: Age Diabetic: Non-Insulin Dependent Family History Hypertension Stressful Life Events: Stress Score Low RECOMMENDATIONS: Patient interested in Phase II Outpatient Cardiac Rehab: Yes. Facility Preferred: [facility] DIAGNOSIS: Acute Myocardial Infarction/Acute Coronary Syndrome: AMI AMI/ACS Teaching Points: -Basic Anatomy and Disease Process -Personal Modifiable Risk Factor Identification -Activity/Physical Exercise Recommendations -Nutrition/Diet Information -Outpatient Cardiac Rehabilitation Open Heart Surgery: CABG Open Heart Surgery Teaching Points: -Basic Anatomy and Disease Process -Personal Modifiable Risk Factor Identification -Activity/Physical Exercise Recommendations -Nutrition/Diet Information -Prescribed Medication Reviewed -When patient should call provider -Outpatient Cardiac Rehabilitation READINESS TO LEARN: Cognitive Ability: Alert and Oriented Motivation to Learn: Interested Family Support: Unable to assess - Family not present Instruction Provided To: Patient Patient Learns Best By: Individual Instruction, Written Instruction - Hand-outs and Verbal Instruction Factors Affecting Learning: None Physical Limitations Affecting Learning: None LEARNING RESPONSE: Method Of Instruction: Teach Back method used and patient able to ask questions and now has a good understanding of education given and his risk factors. Patient/Family Response: Verbalizes understanding of: cardiac risk factors, incision care, restrictions, home walking program and benefits of cardiac rehab. Follow-up Plan: No further educational needs identified at this time. Instructional Aids Used: Anatomical Model/Drawing Cardiac Rehabilitation Brochure Signature: Lena Gallegos ACSM-EP-C Pager: [phone] Date: February 22, 2018 Time: 11:47 AM GLUCOSE METER Collected: 02/22/2018 Status: F Source: [facility] 10:36 AM HEALTH SYSTEM REPOSITORY TYPE CODE TESTS RESULT OUT OF REFERENCE UNITS RANGE LAB GLUBL(LOINC 70-99 mg/dL ) High Glucose Meter 238 Result Comment: RN NOTIFIED Performed By: #### GLMET #### [place] [address] CASE MANAGEM Observed: 02/22/2018 Status: COMPLETED Source: [place] 10:30 AM CLINIC OTHER CAMPUS REPOSITORY [facility] ID: [id number] Author: Lennie HungRn) MINDY Peterson Service: Care Management Author Type: Registered Nurse Type: Care Mgt Progress Note Filed: 02/22/2018 10:31 AM Note Text: CARE MANAGEMENT PROGRESS NOTE SERVICE DATE: 02/22/2018 SERVICE TIME: 10:30 AM LOS: 6 days Notes reviewed. Possible D/C tomorrow to home with [facility] to follow. Following. SIGNATURE: Lennie Peterson RN PATIENT NAME: Byron Ambriz DATE: February 22, 2018 TIME: 10:30 AM PAGER/CONTACT #: [phone] PROGRESS Observed: 02/22/2018 Status: COMPLETED Source: [place] 9:55 AM CLINIC OTHER CAMPUS REPOSITORY [facility] ID: [id number] Author: Diana Daly) MICHELLE Garnica Service: Cardiovascular Surgery Author Type: Nurse Practitioner Type: Progress Notes Filed: 02/22/2018 10:22 AM Note Text: CARDIOTHORACIC SURGERY POSTOP PROGRESS NOTE SERVICE DATE: 02/22/2018 SERVICE TIME: 9:56 AM Subjective S/P SURGERY:CABG x 4 (morales-lad; elise-diag; svg-RI; svg-OM; evh) DATE OF SURGERY: 02/18/2018 POSTOP DAY #4 LOS: 6 INTERVAL EVENTS / PERTINENT ROS: This is a 62 year old male who presented with a recent history of exertional angina. Stress test was positive 12/18/17:+ reversible anteroseptal and apical ischemia with EF of 60%. 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 He was referred for outpatient cardiac surgery eval. Sunday he lifted bags of mulch resulting in persisting chest pressure. He presented Friday 02/16 with NSTEMI, troponin 14 and was admitted to intensive care unit with CTS consult. He underwent CABG x4 with Dr. Chappell on 02/18. Post-operative recovery was unremarkable. Started on BB on POD2, pacing wire removed on POD 3 and was trasferred to [facility] on the same day. Patient is seen after his walk and shower today. 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 He's tolerating diet well without issue with bowels. Tolerating pain with prn meds. +BM. Reports being sweaty often. Objective Admission Weight: 75.1 kg (165 lb 9.1 oz) BP 134/85 Pulse 91 Temp 37 ?C (98.6 ?F) (Oral) Resp 18 Ht 167.6 cm (5' 6) Wt 75.5 kg (166 lb 7.2 oz) SpO2 100% BMI 26.87 kg/m? Body surface area is 1.88 meters squared. Min/Max/Average Temperature AND Blood Pressure: Temp (24hrs), Av ?C (98.6 ?F), Min:36.1 ?C (97 ?F), Max:37.8 ?C (100 ?F) Systolic (24hrs), Av , Min:112 , Max:141 Diastolic (24hrs), Av, Min:70, Max:96 Intake/Output Summary (Last 24 hours) at 02/22/18 0956 Last data filed at 02/22/18 0628 Gross per 24 hour Intake 200 ml Output 3302 ml Net -3102 ml TELEMETRY: sinus tachycardia HR in 120 in early AM. PHYSICAL EXAM: General Appearance: well developed and no distress Skin: Midsternal incision dry AND intact., SVG incisions dry AND intact., warm and dry Lungs: clear and respiratory effort: normal Heart: regular rhythm, S1, S2 normal and no murmur Peripheral Vascular/Arteries: pulses intact, dorsalis pedis +2 and radial +2 Abdomen: soft, non-tender and bowel sounds present Genitourinary: voiding without difficulty Neurologic/Psychiatric: oriented to time, place and person and steady gait Extremities: no edema Lines, Drains, and Airways Line Central Line Quadruple Lumen 02/18/18 0915 Right Neck 4 days DATA: Diagnostic tests reviewed for today's visit: Significant Lab Results: Reviewed most recent labs from today, unremarkable Chest X-RAY 02/22: Status post removal of bilateral chest tubes. ?Trace bilateral pleural effusions. ?No pneumothorax. Recent Labs 02/22/18 0400 02/21/18 0605 02/20/18 0435 RBC 3.61* 3.34* 3.06* WBC 5.85 5.57 5.39 HB 11.0* 10.3* 9.6* HCT 32.1* 29.5* 27.4* PLT 192 128* 106* NA 139 138 136 K 3.9 3.8 3.8 CHLOR 105 106 107 CO2 28 30 24 BUN 8 8 11 CREAT 0.65* 0.61* 0.62* GLUC 161* 161* 190* CA 8.7 8.3* 7.8* MG -- -- 2.1 ANION 10 6* 9 Assessment/Plan CABG - 4 vessel 02/18. - on ASA 81, statin 80, beta radha 25 bid, up to 25 TID - plavix started 02/21 s/p wire removal - Pain control. - encourage ambulation, DB. ? anticipated Post-Op hypoxia: - on RA - IS/deep breathing. - reviewed CXR, lasix 20 x1 today ? Anticipated post-op anemia: - Hgb stable post op. ? FEN: - Tolerating cardiac diet. - Lytes WNL today. ?Daily BMP and replete as needed.? ? : - adequate UOP after weaevr removal. - decreased weight this AM. ? ? DM: - off insulin drip. - appreciate endo recs - likely will go home without need for insulin. ? 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 ? DVT ppx: - lovenox and SCDs Tests/Labs Ordered: 1. BMP DISPOSITION: possible home tomorrow if HR is in better control SIGNATURE: Diana Garnica APRN.PHYSICIAN ASSISTANT PSYCHIATRY PATIENT NAME: Byron Ambriz DATE: February 22, 2018 TIME: 9:56 AM PAGER/CONTACT #:[phone] ETX [phone] CONSULT PROG Observed: 02/22/2018 Status: COMPLETED Source: [place] 8:00 AM CLINIC OTHER CAMPUS REPOSITORY [facility] ID: [id number] Author: Lenny Arias Service: Endocrinology Author Type: Physician Type: Consult Progress Note Filed: 02/22/2018 9:51 AM Note Text: DIABETES PROGRESS NOTE SERVICE DATE: 02/22/2018 SERVICE TIME: 0800 REASON FOR CONSULT: DM Type 2 REQUESTING PHYSICIAN: No referring provider defined for this encounter. Subjective HISTORY OF PRESENT ILLNESS: NPH and Humalog scale regimen. Some mild ongoing hyperglycemia Component GLUCOSE METER Latest Ref Rng AND Units 70 - 99 mg/dL 02/21/2018 7:35 AM 176 (H) 02/21/2018 11:49 AM 223 (H) 02/21/2018 5:00 PM 202 (H) 02/21/2018 8:22 PM 242 (H) PAST MEDICAL HISTORY Diagnosis Date - Abnormal cardiovascular stress test - CAD (coronary artery disease) - Chest pain - Dyspnea - GERD (gastroesophageal reflux disease) - Hemorrhage of gastrointestinal tract, unspecified - Internal hemorrhoids without mention of complication - Other convulsions none since 1975 - Pancreatitis - Seizures (HCC) - Type 2 diabetes mellitus with hyperglycemia (HCC) PAST SURGICAL HISTORY Procedure Laterality Date - COLONOSCOP W/ OR W/O BRSH SPEC 04/15/08 - LAP CHOLECYSTECT/CHOLANGIOGRAPHY FAMILY HISTORY Problem Relation Age of Onset - Hypertension Mother - Heart Brother - Lipids Brother Social History Substance Use Topics - Smoking status: Never Smoker - Smokeless tobacco: Former User Types: Chew - Alcohol use Yes Comment: 1x/month beer Current Facility-Administered Medications: insulin lispro 4 Units pen (rapid acting) (HumaLOG KWIKPEN) 4 Units SUBCUTANEOUS TID w MEALS Lenny Arias 4 Units at 02/22/18 0811 metoprolol tartrate (short acting) 25 mg tab(s) (LOPRESSOR) 25 mg ORAL q 8 H Weina (Manager Acquisition) MICHELLE Garnica 0.9% NaCl 2-10 mL 2-10 mL INTRAVENOUS q 12 H Lauren (Manager Acquisition) Honorio 3 mL at 02/22/18 0900 bisacodyl 10 mg suppository (DULCOLAX) 10 mg RECTAL PRN Lauren (Manager Acquisition) Honorio melatonin 3 mg tab(s) 3 mg ORAL HS PRN Lauren (Manager Acquisition) Honorio 3 mg at 02/21/18 1829 clopidogrel 75 mg tab(s) (PLAVIX) 75 mg ORAL DAILY Diana (Le) APRN. DanikaPHYSICIAN ASSISTANT PSYCHIATRY 75 mg at 02/22/18 0916 HYDROcodone 5 mg - acetaminophen 325 mg tablet (NORCO) 1-2 tablet ORAL q 4 H PRN Lauren (Le) Honorio 2 tablet at 02/22/18 0915 aspirin 81 mg chewable tab(s) 81 mg ORAL DAILY Diana (Le) APRN. DanikaPHYSICIAN ASSISTANT PSYCHIATRY 81 mg at 02/22/18 0916 phenytoin ER 200 mg cap(s) (DILANTIN) 200 mg ORAL DAILY Lauren (Le) Honorio 200 mg at 02/22/18 0917 phenytoin ER 200 mg cap(s) (DILANTIN) 200 mg ORAL q 48 HR Lauren (Le) Honorio 200 mg at 02/20/18 232 phenytoin ER 100 mg cap(s) (DILANTIN) 100 mg ORAL q 48 HR Lauren (Le) Honorio 100 mg at 02/21/182023 pantoprazole [address] 40 mg tab(s) (PROTONIX) 40 mg ORAL DAILY (6 AM) Lauren (Le) Honorio 40 mg at 02/22/18 0355 morphine 2-4 mg injection 2-4 mg INTRAVENOUS q 4 H PRN Lauren (Le) Honorio 4 mg at 02/20/18 1344 polyethylene glycol 3350 17 g packet (MIRALAX, GLYCOLAX) 17 g ORAL DAILY Lauren (Le) Honorio 17 g at 02/21/18 0836 senna-docusate 8.6-50 mg 1 tablet (SENNA-S) 1 tablet ORAL BID Lauren (Le) Honorio 1 tablet at 02/22/18 0915 dextrose 40 % 15 g 15 g ORAL PRN Prosper Tyson Or glucagon 1 mg injection (GLUCAGEN) 1 mg INTRAMUSCULAR PRN Prosper Tyson Or dextrose 50% in water 25 mL syringe 12.5 g INTRAVENOUS PRN Prosper Tyson Insulin NPH human 8 Units injection pen (intermediate acting) ( NovoLIN N, HumuLIN N) 8 Units SUBCUTANEOUS BID w MEALS Prosper Tyson 8 Units at 02/22/18 0811 insulin lispro pen (rapid acting) (HumaLOG KWIKPEN) SUBCUTANEOUS w MEALS Prosper Tyson 1 Units at 02/22/18 0811 insulin lispro pen (rapid acting) (HumaLOG KWIKPEN) SUBCUTANEOUS AT BEDTIME Prosper Tyson 2 Units at 02/21/182025 acetaminophen 650 mg tab(s) (TYLENOL) 650 mg ORAL q 6 H PRN Cathleen (Pa) Edilma enoxaparin 40 mg injection (LOVENOX) 40 mg SUBCUTANEOUS DAILY Cathleen (Pa) Edilma 40 mg at 02/22/18 0916 albuterol 2.5 mg /3 mL (0.083 %) 2.5 mg (PROVENTIL) 2.5 mg INHALATION q 2 H PRN Cathleen (Pa) Edilam atorvastatin 80 mg tab(s) (LIPITOR) 80 mg ORAL AT BEDTIME Veronique (Res) Roscoe 80 mg at 02/21/182023 Allergies As of Date: 02/16/2018 (No Known Allergies) Fully Assessed 02/16/2018 REVIEW OF SYSTEMS: GENERAL: no fever and no chills SKIN: no rashes, pruritis or dry skin CARDIAC: incisional chest pain PULMONARY: denies wheezing Objective PHYSICAL EXAM: BP 134/85 Pulse 91 Temp 37 ?C (98.6 ?F) (Oral) Resp 18 Ht 167.6 cm (5' 6) Wt 75.5 kg (166 lb 7.2 oz) SpO2 100% BMI 26.87 kg/m2 GENERAL: Well appearing, alert, in no acute distress, well- hydrated, well nourished. SKIN: skin color, texture, turgor normal, no rashes or lesions. HEART: RRR without murmur, gallop, or rubs. No ectopy PULMONARY: Lungs clear to auscultation. No wheezing, rhonchi, rales EXTREMITIES: no edema, no calluses or ulcers present. DATA: Diagnostic tests reviewed for today's visit: Most recent labs glucose log Assessment/Plan Active Problems: Type 2 diabetes with hyperglycemia Assessment AND Plan: add meal time Humalog coverage. care home plan is to go home on oral meds, likely will not need home-going insulin SIGNATURE: Lenny Arias MD PATIENT NAME: Byron Ambriz DATE: February 22, 2018 TIME: 9:44 AM PAGER/CONTACT #: [phone] NURSING PROG Observed: 02/22/2018 Status: COMPLETED Source: [place] 7:50 AM CLINIC OTHER CAMPUS REPOSITORY [facility] ID: [id number] Author: Bev Alejandre) MINDY Cummings Service: Nursing Author Type: Registered Nurse Type: Nursing Progress Note Filed: 02/22/2018 7:52 AM Note Text: Nursing Progress Note Patient Name: Byron Ambriz Patient Location: [place] [address] [address]* Vascular and podiatry please call Dr. Becerra, web analytics specialist of patient in [place]. [phone] cell phone number This note was completed by: Bev Cummings, RN CHEST 2 VIEWS Observed: 02/22/2018 Status: F Source: [facility] 7:19 AM HEALTH SYSTEM REPOSITORY Performed at [facility] APPROVED BY: Sanchez Keene MD EXAMINATION: CHEST RADIOGRAPH (2 VIEW FRONTAL & LATERAL) Clinical History: PCI or CABG MQ: [id number]_5 Comparison: 02/20/2018 at 05 33 RESULT: Lines, tubes, and devices: Right internal jugular central line with tip near the cavoatrial junction. Overlying cardiac/vascular sonographer leads. Lungs and pleura: Trace bilateral pleural effusions. Lungs are otherwise clear. No pneumothorax. Cardiomediastinal silhouette: Normal cardiomediastinal silhouette. Other: Intact median sternotomy wires. IMPRESSION: Status post removal of bilateral chest tubes. Trace bilateral pleural effusions. No pneumothorax. HEMOGRAM Collected: 02/22/2018 Status: F Source: [employer] [facility] 4:00 AM HEALTH SYSTEM REPOSITORY TYPE CODE TESTS RESULT OUT OF REFERENCE UNITS RANGE LAB WBC(LOINC) 4.23-9.07 thou/cmm WBC 5.85 LAB RBC(LOINC) 4.63-6.08 mil/cmm Low RBC 3.61 LAB HGB(LOINC) 13.7-17.5 g/dL Low Hgb 11.0 LAB HCT(LOINC) 40.1-51.0 % Low Hct 32.1 LAB MCV(LOINC) 83.2-95.6 fl MCV 88.9 LAB MCH(LOINC) 25.7-32.2 pg MCH 30.5 LAB MCHC(LOINC) 32.3-36.5 % MCHC 34.3 LAB RDW(LOINC) 11.6-14.4 % RDW 12.2 LAB RDWSD(LOINC 36.1-45.8 fl ) RDW SD 39.9 LAB PLT(LOINC) 141-365 thou/cmm Platelet 192 LAB MPV(LOINC) 8.7-12.0 fl MPV 10.0 Performed By: #### CBC1 #### [facility] [address] [place] [address] BASIC PANEL Collected: 02/22/2018 Status: F Source: [facility] 4:00 AM HEALTH SYSTEM REPOSITORY TYPE CODE TESTS RESULT OUT OF REFERENCE UNITS RANGE LAB NA(LOINC) 136-145 mEq/L Sodium Blood 139 LAB K(LOINC) 3.5-5.1 mEq/L Potassium Blood 3.9 LAB CL(LOINC) 98-107 mEq/L Chloride Blood 105 LAB CO2(LOINC) 21-32 mEq/L CO2 Blood 28 LAB GLU(LOINC) 70-99 mg/dL Glucose High Blood 161 LAB BUN(LOINC) 7-18 mg/dL BUN Blood 8 LAB CREA(LOINC 0.67-1.17 mg/dL ) Low Creatinine Blood 0.65 LAB CA(LOINC) 8.5-10.1 mg/dL Calcium Blood 8.7 LAB ANGAP(LOIN 8-16 C) Anion Gap 10 Performed By: #### P8 #### [place] [address] MDRD GFR Collected: 02/22/2018 Status: F Source: [employer] [facility] 4:00 AM HEALTH SYSTEM REPOSITORY TYPE CODE TESTS RESULT OUT OF RANGE REFERENCE UNITS LAB GFRFN(LOINC >60mL/min/1.73m ) 2 eGFR >60 Result Comment: If the patient is , multiply the result by 1.210. Performed By: #### GFR #### [facility] [address] [place] [address] GLUCOSE METER Collected: 02/21/2018 Status: F Source: [facility] 8:22 PM HEALTH SYSTEM REPOSITORY TYPE CODE TESTS RESULT OUT OF REFERENCE UNITS RANGE LAB GLUBL(LOINC 70-99 mg/dL ) High Glucose Meter 242 Performed By: #### GLMET #### [facility] [address] [place], [place] [address] GLUCOSE METER Collected: 02/21/2018 Status: F Source: [facility] 5:00 PM HEALTH SYSTEM REPOSITORY TYPE CODE TESTS RESULT OUT OF REFERENCE UNITS RANGE LAB GLUBL(LOINC 70-99 mg/dL ) High Glucose Meter 202 Result Comment: RN NOTIFIED Performed By: #### GLMET #### [facility] [address] [place], [place] [address] THERAPY NT Observed: 02/21/2018 Status: COMPLETED Source: [place] 4:55 PM CLINIC OTHER CAMPUS REPOSITORY [facility] ID: [id number] Author: Yudelka (Pt) SEUN Diallo Service: Physical Therapy Author Type: Physical Therapist Type: Therapy (PT/OT/Speech/Resp) Filed: 02/21/2018 5:00 PM Note Text: Physical Therapy Treatment SERVICE DATE: 02/21/2018 SERVICE TIME: 1625 to 1645 ROOM: [place] [address] Present on Admission: - NSTEMI (non-ST elevated myocardial infarction) (HCC) CABG - 4 vessel 02/18 Recommended Discharge Disposition: Home Recommended Discharge Disposition Comments: Patient has met goals Anticipated Discharge Needs: Supervision at Home Physical Assist at Home for: Cleaning;Laundry;Meals;Medication Management;Stairs;Safety;Self Care;Shopping;Transportation Supervision at Home due to: (acuity) Recommended Discharge Equipment: No equipment needs anticipated PT Recommendations to Nursing: Ambulate without device;To bathroom;In halls;OOB for Meals;Sit at edge of bed (no assist needed) Device: (none) PT 6 Clicks Score: 23 Precautions/Activity Restrictions: Sternal Precaution/Activity Restriction Comments: no lines, tubes, vest on Extremity With Weight Bearing Restricted: Left Upper Extremity;Right Upper Extremity Left Upper Extremity Weight Bearing Status: NWB Right Upper Extremity Weight Bearing Status: NWB ASSESSMENT : Patient presents with significant progress towards PT goals with increased gait distance, activity tolerance, and functional strength. Patient demonstrates independent functional transfers and ambulation. Patient presents near functional baseline and thus is able to return home from our standpoint when medically clear. Discontinue PT. Patient Disposition at Start of Session: (in bathroom) Patient Disposition at End of Session: OOB in Chair;Call Sen in Reach Tolerated Full Session Fatigue;Pain Physical Therapy Problem List: Pain;Impaired Self Care;Decreased Activity Tolerance;Decreased Strength;Functional Mobility Impairment;Balance Impaired Patient /Caregiver Goals: Go Home Goals for Plan of Care: Transfer supine to/from sit with: Modified Independent Transfer sit to/from stand with: Modified Independent Ambulate with: Modified Independent Distance: 150 Device: (none) Ambulate up and down steps with: Contact Guard Assistance Number of steps: 7 Device: Hand Held Assist;Rail Goal: Strength 4+/5 to improve independence with mobility Progress Toward Goals: Progressing as expected Rehab Potential: Good PLAN: Treatment Frequency (times per week): Discontinue Therapy Services Reasons Therapy Services Discontinued: No skilled needs Current admission Treatment Interventions: Education;Strengthening;Functional Mobility Training;Balance Training;Neuromuscular Re-education Plan of Care developed with: Patient;Family TREATMENT INTERVENTIONS: Therapy Diagnosis: Unsteadiness on feet;Abnormalities of gait and mobility-other;Muscle Weakness (generalized) Interventions Provided: Therapeutic Exercise (45506);Therapeutic Activity (25174) Therapeutic Exercise (90373) Treatment Minutes: 10 0 units Skilled Intervention(s): Patient instructed in and performed anti-embolic/Active Range of Motion exercises B LE 15 reps AP, LAQ, GS, sitting marching. Encouraged to perform several times per day. Therapeutic Activity (76303) Treatment Minutes: 10 1 unit Skilled Intervention(s): Instructed patient on log roll technique for bed mobility including B LE hook lying position to initiate rolling. Instructed on UE and LE sequencing with supine to sit transfer, use of UE placement on handrails to assist with upright position. Patient did not require assistance for sit<->supine or sit<->stand transfers. Education provided for Edge of Bed and transitional movement safety, self check for dizziness/lightheadedness and Upper Extremity assist for sit balance. Encouraged patient to keep a slower pace than his normal for safety. Education regarding importance of Out of Bed to chair - in a sitting position (not reclined), ambulate in room and halls independently to regulate BP, improve lung function and overall blood flow, and to aid with other bodily functions. Total Timed Code Treatment Minutes: 20 Total Treatment Time (minutes): 20 SUBJECTIVE: Current Hospital Course: Chart reviewed and no significant medical updates relevant to therapy were noted Reason for Physical Therapy Consult : safety assessment Relevant Past Medical History: CABG Patient Report: Identification verified x2, patient agreeable to therapy. Home Environment Patient Lives With: Significant Other Assistance Available: 24 Hour Entry To Home: Stairs Number Of Stairs Into Home: 5 Number Of Stairs To Bed/Bath: 0 Tub/Shower Type: standard tub Laundry: basement Equipment Owned: Other: See Comment (sternal vest) Prior Functional Level: Within Functional Limits OBJECTIVE: Range Of Motion: Within Functional Limits (B LE, UE limited d/t sternal precautions) Strength: Within Functional Limits (BLE 4/5) Strength B LE improved CURRENT FUNCTIONAL STATUS: Current Functional Mobility Assist Level Additional Information Rolling Stand By Assistance Supine to Sit Stand By Assistance Sit to Supine Stand By Assistance Scooting Stand By Assistance Sit to Stand Independent Stand to Sit Independent Bed to Chair Independent Toilet/Commode Gait Independent Gait Device: None Gait Distance (feet): 150 Stairs Curb Step Car Transfer Contact Guard Assistance (similated) General Gait Deviations: Emelina decreased;Wide base of support Balance: Dynamic Sitting;Dynamic Standing Dynamic Sitting Balance: Independent (Good) Static Standing Balance: Independent (Good) Please see discipline specific clinical documentation flowsheet for complete details for this therapy evaluation/treatment. SIGNATURE: Yudelka Diallo PT PATIENT NAME: Byron Ambriz DATE: February 21, 2018 TIME: 4:56 PM PAGER/CONTACT #: [phone] PROGRESS Observed: 02/21/2018 Status: COMPLETED Source: [place] 3:35 PM CLINIC OTHER CAMPUS REPOSITORY HNO ID: [id number] Author: Diana Garnica APRN.CNP Service: Cardiovascular Surgery Author Type: Nurse Practitioner Type: Progress Notes Filed: 02/21/2018 3:57 PM Note Text: CARDIOTHORACIC SURGERY POSTOP PROGRESS NOTE SERVICE DATE: 02/21/2018 SERVICE TIME: 3:36 PM Subjective S/P SURGERY: CABG x 4 (morales-lad; elise-diag; svg-RI; svg-OM; evh) DATE OF SURGERY: 02/18/2018 POSTOP DAY #3 LOS: 5 INTERVAL EVENTS / PERTINENT ROS: This is a 62 year old male who presented with a recent history of exertional angina. Stress test was positive 12/18/17:+ reversible anteroseptal and apical ischemia with EF of 60%. 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 He was referred for outpatient cardiac surgery eval. Sunday he lifted bags of mulch resulting in persisting chest pressure. He presented Friday 02/16 with NSTEMI, troponin 14 and was admitted to intensive care unit with CTS consult. He underwent CABG x4 with Dr. Chappell on 02/18. Post-operative recovery was unremarkable. Started on BB on POD2, pacing wire removed on POD 3 and was trasferred to [facility] on the same day. Patient is seen after he is transferred to the new room. Stated that he's tired and would like to have some rest. In NAD. Tolerating pain well with PRN pain meds. Denied SOB, chest palpitation. Still working on having a BM. Objective Admission Weight: 75.1 kg (165 lb 9.1 oz) BP 120/79 Pulse 103 Temp 36.1 ?C (97 ?F) Resp 16 Ht 167.6 cm (5' 6) Wt 76 kg (167 lb 8.8 oz) SpO2 100% BMI 27.04 kg/m? Body surface area is 1.88 meters squared. Min/Max/Average Temperature AND Blood Pressure: Temp (24hrs), Av.6 ?C (97.8 ?F), Min:36.1 ?C (97 ?F), Max:37 ?C (98.6 ?F) Systolic (24hrs), Av , Min:112 , Max:147 Diastolic (24hrs), Av, Min:70, Max:107 Intake/Output Summary (Last 24 hours) at 02/21/18 1535 Last data filed at 02/21/18 1300 Gross per 24 hour Intake 720 ml Output 3680 ml Net -2960 ml TELEMETRY: normal sinus rhythm PHYSICAL EXAM: General Appearance: well developed and no distress Skin: Midsternal incision dry AND intact., SVG incisions dry AND intact., warm and dry Lungs: clear and respiratory effort: normal Heart: regular rhythm, S1, S2 normal and pacing wire was removed today Peripheral Vascular/Arteries: pulses intact, dorsalis pedis +2 and radial +2 Abdomen: soft, non-tender and bowel sounds present Genitourinary: voiding without difficulty Neurologic/Psychiatric: oriented to time, place and person and steady gait Extremities: normal exam of the extremities and no edema Lines, Drains, and Airways Line Central Line Quadruple Lumen 02/18/18 0915 Right Neck 3 days DATA: Diagnostic tests reviewed for today's visit: Significant Lab Results: unremarkable Chest X-RAY 02/20: Bibasilar atelectasis. Possible small right pleural effusion. ? Life-support equipment as noted. ? Recent Labs 02/21/18 0605 02/20/18 0435 02/19/18 1425 02/19/18 0410 RBC 3.34* 3.06* -- 2.65* WBC 5.57 5.39 -- 3.49* HB 10.3* 9.6* -- 8.3* HCT 29.5* 27.4* -- 24.4* PLT 128* 106* -- 91* NA 138 136 -- 143 K 3.8 3.8 3.8 3.0* CHLOR 106 107 -- 113* CO2 30 24 -- 24 BUN 8 11 -- 12 CREAT 0.61* 0.62* -- 0.82 GLUC 161* 190* -- 90 CA 8.3* 7.8* -- 7.3* MG -- 2.1 -- 2.1 ANION 6* 9 -- 9 Assessment/Plan CABG - 4 vessel 02/18. - on ASA 81, statin 80, beta radha 25 bid. - plavix started 02/21 s/p wire removal - Pain control. - encourage ambulation, DB. - will f/u on the BM in AM. ? anticipated Post-Op hypoxia: - on RA - IS/deep breathing. - reviewed CXR ? Anticipated post-op anemia: - Hgb stable post op. - Daily CBCs. ? FEN: - Tolerating cardiac diet. - Lytes WNL today. Daily BMP and replete as needed. ? : - adequate UOP after weaver removal. - decreased weight this AM. ? DM: - off insulin drip. - appreciate endo recs - likely will go home without need for insulin. ? 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 ? DVT ppx: - lovenox and SCDs Tests/Labs Ordered: 1. BMP DISPO: possible home in 24-48hrs if medically stable. SIGNATURE: Diana Garnica APRN.CNP PATIENT NAME: Byron Ambriz DATE: February 21, 2018 TIME: 3:35 PM PAGER/CONTACT #:[phone] ETX [id number] NURSING PROG Observed: 02/21/2018 Status: COMPLETED Source: [place] 1:57 PM CLINIC OTHER [place] REPOSITORY HNO ID: [id number] Author: Sneha (Rn) MINDY Estrada Service: Nursing Author Type: Registered Nurse Type: Nursing Progress Note Filed: 02/21/2018 1:59 PM Note Text: Report called to RN on 4200. Transferring to 4219. Family at bedside and aware of transfer. Belongings transferred with pt. PROGRESS Observed: 02/21/2018 Status: COMPLETED Source: [place] 11:52 AM [facility] OTHER [place] REPOSITORY HNO ID: [id number] Author: Diana Garnica APRN.CNP Service: Cardiovascular Surgery Author Type: Nurse Practitioner Type: Progress Notes Filed: 02/21/2018 11:54 AM Note Text: CARDIOTHORACICSURGERY PROCEDURE NOTE SERVICE DATE: 02/21/2018 SERVICE TIME: 11:53 AM Coagulation reviewed.. Atrial Pacing Wires removed. Patient tolerated procedure well. No immediate complications noted. Nursing notified. orders placed. . SIGNATURE: Diana Garnica APRN.CNP PATIENT NAME: Byron Ambriz DATE: February 21, 2018 TIME: 11:52 AM PAGER/CONTACT #: [phone] ETX#[id number] GLUCOSE METER Collected: 02/21/2018 Status: F Source: [facility] 11:49 AM HEALTH SYSTEM REPOSITORY TYPE CODE TESTS RESULT OUT OF REFERENCE UNITS RANGE LAB GLUBL(LOINC 70-99 mg/dL ) High Glucose Meter 223 Result Comment: RN NOTIFIED Performed By: #### GLMET #### [place] [id number] PROGRESS Observed: 02/21/2018 Status: COMPLETED Source: [place] 11:48 AM [facility] OTHER [place] REPOSITORY HNO ID: [id number] Author: Lauren Olmedo Service: Cardiovascular Surgery Author Type: Nurse Practitioner Type: Progress Notes Filed: 02/21/2018 4:33 PM Note Text: CARDIOTHORACIC SURGERY POSTOP PROGRESS NOTE SERVICE DATE: 02/21/2018 SERVICE TIME: 11:48 AM Subjective S/P SURGERY: Procedure(s) (LRB): BYPASS GRAFT ARTERY CORONARY ON-PUMP TWO CORONARY ARTERIAL GRAFTS (N/A) BYPASS GRAFT ARTERY CORONARY ON-PUMP USING VENOUS GRAFT(S) AND ARTERIAL GRAFT(S); TWO VENOUS GRAFTS (N/A) ENDOSCOPIC HARVEST VEIN FOR CORONARY ARTERY BYPASS PROCEDURE (N/A) DATE OF SURGERY: 02/18/2018 POSTOP DAY #3 LOS: 5 INTERVAL EVENTS / PERTINENT ROS: Pain controlled. Denies SOB. Poor appetite. Objective Admission Weight: 75.1 kg (165 lb 9.1 oz) BP 112/83 Pulse 86 Temp 36.1 ?C (97 ?F) Resp 19 Ht 167.6 cm (5' 6) Wt 76 kg (167 lb 8.8 oz) SpO2 100% BMI 27.04 kg/m? Body surface area is 1.88 meters squared. Min/Max/Average Temperature AND Blood Pressure: Temp (24hrs), Av.6 ?C (97.8 ?F), Min:36.1 ?C (97 ?F), Max:37 ?C (98.6 ?F) Systolic (24hrs), Av , Min:112 , Max:147 Diastolic (24hrs), Av, Min:70, Max:107 Intake/Output Summary (Last 24 hours) at 02/21/18 1257 Last data filed at 02/21/18 1030 Gross per 24 hour Intake 720 ml Output 3805 ml Net -3085 ml TELEMETRY: normal sinus rhythm PHYSICAL EXAM: General Appearance: well developed, no distress and up in chair Skin: Midsternal incision dry AND intact. Lungs: decreased breath sounds and respiratory effort: normal Heart: regular rhythm and S1, S2 normal; pacing wires intact Abdomen: soft, non-tender and bowel sounds present Genitourinary: voiding without difficulty Extremities: edema: 1+, bilateral ankles Lines, Drains, and Airways Line Central Line Quadruple Lumen 02/18/18 0915 Right Neck 3 days DATA: Diagnostic tests reviewed for today's visit: Recent Labs 02/21/18 0605 02/20/18 0435 02/19/18 1425 02/19/18 0410 02/18/18 1520 RBC 3.34* 3.06* -- 2.65* 3.67* WBC 5.57 5.39 -- 3.49* 6.62 HB 10.3* 9.6* -- 8.3* 11.4* HCT 29.5* 27.4* -- 24.4* 32.7* PLT 128* 106* -- 91* 102* INR -- -- -- -- 1.03 APTT -- -- -- -- 47.3* NA 138 136 -- 143 144 K 3.8 3.8 3.8 3.0* 3.8 CHLOR 106 107 -- 113* 116* CO2 30 24 -- 24 25 BUN 8 11 -- 12 9 CREAT 0.61* 0.62* -- 0.82 0.60* GLUC 161* 190* -- 90 117* CA 8.3* 7.8* -- 7.3* 7.4* MG -- 2.1 -- 2.1 2.5 ANION 6* 9 -- 9 7* Recent Labs 02/18/18 1525 02/18/18 1356 02/18/18 1330 02/18/18 1329 PH 7.345* 7.365 7.340 7.355 PCO2 41.0 -- -- -- PO2 137.6* 360.0* 40.0 318.0* BE -3.6 -- -- -- HCO3 -- 23.1 23.2 24.4 Assessment/Plan NSTEMI s/p CABG x4 -POD#3 -c/w ASA, statin, BB. Add Plavix today -dc pacing wires -Post thorax vest Anticipated acute pulmonary insufficiency -Wean O2, IS Volume overload -Lasix IV today DM2 -Insulin per Endo Convulsive Disorder -Phenytoin Tests/Labs Ordered: 1. Chest X-ray 2. BMP 3. CBC SIGNATURE: Lauren Olmedo APRN.CNP PATIENT NAME: Byron Ambriz DATE: February 21, 2018 TIME: 12:57 PM PAGER/CONTACT #: [phone] ETX [id number] THERAPY NT Observed: 02/21/2018 Status: COMPLETED Source: [place] 10:03 AM CLINIC OTHER CAMPUS REPOSITORY HNO ID: [id number] Author: Rosa Maria (Otr/Michelle Quezada Service: Occupational Therapy Author Type: Occupational Therapist Type: Therapy (PT/OT/Speech/Resp) Filed: 02/21/2018 1:42 PM Note Text: Occupational Therapy Evaluation SERVICE DATE: 02/21/2018 SERVICE TIME: 909 ROOM: [place] [id number] Recommended Discharge Disposition: Home Anticipated Discharge Needs: Physical Assist at Home Physical Assist at Home for: Cleaning;Laundry;Meals;Medication Management;Stairs;Safety;Self Care;Shopping;Transportation Supervision at Home due to: (acuity) Recommended Discharge Equipment: Long Handled Sponge;Shower Chair;Hand Held Shower OT Recommendations to Nursing: OOB for meals;Bedside Commode for Toileting;ADL?s in chair Equipment: Commode-Bedside OT 6 Clicks Score: 19 Precautions/Activity Restrictions: Sternal;Lines/Tubes/Drains;Fall Risk Precaution/Activity Restriction Comments: multiple lines, tele, CT x 3, vest Extremity With Weight Bearing Restricted: Left Upper Extremity;Right Upper Extremity Left Upper Extremity Weight Bearing Status: NWB Right Upper Extremity Weight Bearing Status: NWB ASSESSMENT: OT Evaluation Moderate Complexity: Occupational Profile - Extended review of patient's medical record completed including patient's physical, cognitive, and psycho-social history (please see current hospital course of evaluation). Occupational Performance - Pt presents with deficits in feeding, grooming, UE bathing/dressing, LE bathing/dressing, functional transfers, functional mobility, decreased safety awareness, decreased insight into deficits Complexity in Clinical Decision Making - The extent of clinical reasoning was moderate, several treatment options present for the patient, need for modification during the evaluation was minimal/moderate, comorbidities affecting occupational performance: CABG 02/17/18,NIDDM,CAD,chest pain,dyspnea. Patient Disposition at Start of Session: OOB in Chair Patient Disposition at End of Session: OOB in Chair Tolerated Full Session Occupational Therapy Problem List: Education Deficit;Pain;Safety Deficits;Impaired Self Care;Decreased Activity Tolerance;Functional Mobility Impairment Patient /Caregiver Goals: Go Home Goals for Plan of Care: Grooming with: Set Up Upper Body Dressing with: Set Up Lower Body Dressing with: Contact Guard Assistance Toilet Transfer with: Stand By Assistance Tolerate (minutes of functional activity): 20 Functional Activity with: Stand By Assistance Home Management Skills with: Contact Guard Assistance Kitchen Mobility Tasks with: Supervision Demonstrate Competence With Education with: Supervision Progress Toward Goals: Progressing as expected Rehab Potential: Good PLAN: Treatment Frequency (times per week): 5 (1-5) Current admission Treatment Interventions: Education;Self Care / Home Management;Energy Conservation Training;Functional Mobility Training;Pain Management Plan of Care developed with: Patient TREATMENT INTERVENTIONS: Therapy Diagnosis: Reduced mobility-other;Decreased activities of daily living (ADL) Interventions Provided: Evaluation;Self Penitentiary Management (44758) $ Evaluation-Moderate (83431) Billed Units: 1 unit Self Penitentiary Management (05355) Treatment Minutes: 15 1 unit Skilled Intervention(s): Educated patient energy conservation and simplification techniques to manage fatigue /sob and improve safety with daily activity. Followed with instruction benefits of breathing techniques, pacing and prioritizing. Pt completed BSC transfer and sim car transfer with CGA and stated 1/3 sternal precautions. Patient was receptive to instruction. Handouts provided. Total Timed Code Treatment Minutes: 15 Total Treatment Time (minutes): 30 FUNCTIONAL G CODE: OT 6 Clicks Score: 19 (02/21/18 0910) Self Care Current Status (G8987): CK (02/21/18 0910) Self Care Goal Status (G8988): CJ (02/21/18 0910) Based on clinical assessment and the score on the 6 Clicks Functional Assessment Tool, the G code and corresponding severity modifiers are documented above. SUBJECTIVE: CHIEF COMPLAINT: CP HPI: This is a 62 year old male with h/o seizure and NIDDM, type 2, on metformin , recently diagnosed with MV CAD, the pt had appointment with Dr. chappell on 02/20/18 for possible CABG. Per the pt he was lifting heaving stuff yesterday noon and started having retrosternal chest pain, dull/aching , non radiating , was about 5-6/10, constant, was not associated with diaphoresis, SOB, dizziness, n/v, palpitations. The pain remained constant and took about 2 ASA at 7 pm and then 2 more at 11 pm and didn't help much with the pain. He couldn't sleep all night and this am Continued to have CP and hence decided [facility] evaluation. In the [facility] ED was given SL nitro and a nitro patch was put. Currently his pain now is 1-2/10. EKG doesn't show any significant ST/T changes and the troponin is 13.90 at [facility]. Off note pt is having CP on exertion since Oct 2017, initially thought dyspepsia, PPI didn't help him. He has a enlisted advisor at [facility], Dr. Louis. Had a initial stress test on 12/18/17, + reversible anteroseptal and apical ischemia with EF of 60%. Later had a LHC, 01/23: left main- normal LAD: SALES AGENT FINANCIAL REPORT SERVICE of mid LAD, 1st diagonal 80% occlusion, 2 nd diagonal 80% stenosis LCX: OM3: proximal 50% stenosis, LT PDA- proximal 60% stenosis RCA: mild luminal irregularities, RT PDA: distal 50% stenosis FUNCTIONAL STATUS: Independent PAST MEDICAL HISTORY Diagnosis Date - Abnormal cardiovascular stress test - CAD (coronary artery disease) - Chest pain - Dyspnea - GERD (gastroesophageal reflux disease) - Hemorrhage of gastrointestinal tract, unspecified - Internal hemorrhoids without mention of complication - Other convulsions none since 1975 - Pancreatitis - Seizures (HCC) - Type 2 diabetes mellitus with hyperglycemia (HCC) PAST SURGICAL HISTORY Procedure Laterality Date - COLONOSCOP W/ OR W/O BRSH SPEC 04/15/08 - LAP CHOLECYSTECT/CHOLANGIOGRAPHY Current Hospital Course: Chart reviewed; Reason for Occupational Therapy Consult: POD#1 ADL Relevant Past Medical History: DE/COPD Patient Report: Pain 2/10 no increase c/o after treatment. Reinforced sternal precautions Home Environment Patient Lives With: Significant Other Assistance Available: 24 Hour Entry To Home: Stairs Number Of Stairs Into Home: 5 Number Of Stairs To Bed/Bath: 0 Tub/Shower Type: standard tub Laundry: basement Equipment Owned: Other: See Comment (sternal vest) Prior Functional Level: Within Functional Limits OBJECTIVE: Responsiveness: Alert;Awake Follows Commands: 3-step Commands Executive Function Deficits: Safety Awareness Safety Awareness Deficit: Minimal impairment CURRENT FUNCTIONAL STATUS: Current Activities of Daily Living Assist Level Feeding Set Up Grooming Contact Guard Assistance Bathing Upper Body Contact Guard Assistance Bathing Lower Body Moderate Assistance Dressing Upper Body Stand By Assistance Dressing Lower Body Minimal Assistance Toileting Contact Guard Assistance Instrumental Activities of Daily Living Assist Level Meal/Beverage Prep Minimal Assistance Light Cleaning Maximal Assistance Laundry Maximal Assistance Medication Management with Strategies Supervision Functional Mobility Assist Level Sit to Stand Stand By Assistance Stand to Sit Contact Guard Assistance Bed to Chair Toilet/Commode Contact Guard Assistance Functional Mobility Stand By Assistance (pillow hig) Car Transfer: Contact Guard Assistance (similated) Hand Dominance: Right Range Of Motion: Within Functional Limits (intact to within sternal guidlines) Balance: Dynamic Standing Dynamic Standing Balance: Stand By Assistance Activity Tolerance: Standing Activity Standing Activity: chair to BSC Standing Activity Tolerance (in minutes): 5 Please see discipline specific clinical documentation flowsheet for complete details for this therapy evaluation/treatment. SIGNATURE: CIRO Logan PATIENT NAME: Byron Ambriz DATE: February 21, 2018 TIME: 10:04 AM PAGER: [phone] NUTRITION Observed: 02/21/2018 Status: COMPLETED Source: [place] 9:59 AM CLINIC OTHER CAMPUS REPOSITORY O ID: [id number] Author: Amanda (Harleen) HARLEEN Ernst Service: Nutrition Therapy Author Type: Registered Dietitian Type: Nutrition Filed: 02/21/2018 2:42 PM Note Text: NUTRITION THERAPY INITIAL ASSESSMENT SERVICE DATE: 02/21/2018 SERVICE TIME: 9:59 AM RECOMMENDED MALNUTRITION DIAGNOSIS: NO MALNUTRITION IDENTIFIED NUTRITION CARE PLAN: Problem, Etiology and Signs/Symptoms: Increased nutrient needs kcal/protein related to increased nutrient need s/p CABG as evidenced by POD # 3 CABG Intervention: Continue on Heart Healthy and Carbohydrate Controlled diet Monitor po and supplement as appropriate Coordination of Care: Nursing Monitor and Evaluation: Goal: Meet >75% of estimated needs Monitor fluid/electrolyte balance Monitor labs, I/Os, vital signs, weight Discharge Nutrition Recommendations: Diet: Heart Healthy and Carbohydrate Controlled Education: Heart Disease Nutrition Therapy with reinforced DM guidelines Chart reviewed for length of stay Per HPI: 62 year old male with h/o seizure and NIDDM, type 2, on metformin , recently diagnosed with MV CAD presenting with CP. Underwent LHC on 01/23 underwent CABG on 02/18/18. Endocrinology following for DM management. OT/PT evals complete Met with patient reports po progressing well, tolerating diet. Last BM 02/17. Denies nutritional concerns at present. Reports ready to get out of ICU and transfer to medical tele floor. .ACTIVE PROBLEM LIST Pancreatitis Type 2 Diabetes Mellitus With Hyperglycemia (Hcc) Nstemi (Non-St Elevated Myocardial Infarction) (Hcc) S/P Cabg X 4 PAST MEDICAL HISTORY Diagnosis Date - Abnormal cardiovascular stress test - CAD (coronary artery disease) - Chest pain - Dyspnea - GERD (gastroesophageal reflux disease) - Hemorrhage of gastrointestinal tract, unspecified - Internal hemorrhoids without mention of complication - Other convulsions none since 1975 - Pancreatitis - Seizures (HCC) - Type 2 diabetes mellitus with hyperglycemia (HCC) PAST SURGICAL HISTORY Procedure Laterality Date - COLONOSCOP W/ OR W/O BRSH SPEC 04/15/08 - LAP CHOLECYSTECT/CHOLANGIOGRAPHY Present Diet Order: Carbohydrate Controlled, Heart Healthy 4 gm Na and Fluid restriction of 2000ml/day Enteral Access: None Nutritional Intake Prior to Admission: >75% estimated energy needs over the past 12 month(s), reports great po prior to admission and appetite slowly progressing post op day 3. Eating <50% meals over the past 2 days GI symptoms: none Abdominal Exam: not assessed Is the patient having any pain that is interfering with oral/enteral intake? No ANTHROPOMETRICS Height: 167.6 cm (5' 6) Admission Weight: 75.1 kg (165 lb 9.1 oz) Current Weight: 76 kg (167 lb 8.8 oz) Body mass index is 27.04 kg/m?. overweight Weight has decreased by 1.6 kg over 3 months representing 2.1 % weight change. Reports usual body weight 165 lbs of years Last Wt 02/21/18 : 76 kg (167 lb 8.8 oz) 11/27/17 : 77.6 kg (171 lb) - 3 months 08/27/17 : 76.2 kg (168 lb) - 6 months 05/28/17 : 75.3 kg (166 lb) 02/05/08 : 79.4 kg (175 lb) [place] Body Weight: 64.5kg Dosing Weight: 75.1 kg Resting Metabolic Rate: 1506 Estimated kilocalorie needs: 8914-9567 kilocalories determined by 25-30 kcal/kg dosing weight Estimated protein needs: 90-120 grams determined by 1.2-1.6 g/kg Dosing weight Estimated fluid needs: 5433-3646 milliliters based on 1 mL per kcal NUTRITION FOCUSED PHYSICAL EXAM: Subcutaneous Fat Loss Orbital No fat loss Triceps No fat loss Mid-axillary at the iliac crest No fat loss Muscle Loss Locations: Temporalis No muscle loss Pectoralis No muscle loss Deltoids No muscle loss Interosseous No muscle loss Latissimus dorsi, trapezius No muscle loss Quadriceps No muscle loss Gastrocnemius No muscle loss Potential micronutrient deficiency revealed in: No deficiency identified Edema: Yes Generalized and Non-pitting Ascites: No Assessment of Functional Status: Functional capacity is unrelated to nutrition status Temperature Max in 24 hours: Temp (24hrs), Av.7 ?C (98.1 ?F), Min:36.6 ?C (97.9 ?F), Max:37 ?C (98.6 ?F) BP 122/104 Pulse 96 Temp 36.6 ?C (97.9 ?F) (Temporal Artery) Resp 19 Ht 167.6 cm (5' 6) Wt 76 kg (167 lb 8.8 oz) SpO2 98% BMI 27.04 kg/m? Recent Labs 02/21/18 0605 02/20/18 0435 GLUC 161* 190* BUN 8 11 CREAT 0.61* 0.62* NA 138 136 K 3.8 3.8 CHLOR 106 107 CO2 30 24 HB 10.3* 9.6* HCT 29.5* 27.4* WBC 5.57 5.39 MG -- 2.1 Potential Signs of Inflammation: hyperglycemia and recent major surgery/CABG ALLERGIES No Known Allergies Current Facility-Administered Medications: phenytoin ER 200 mg cap(s) (DILANTIN) 200 mg ORAL DAILY phenytoin ER 200 mg cap(s) (DILANTIN) 200 mg ORAL q [address] 40 mg tab(s) (PROTONIX) 40 mg ORAL DAILY (6 AM) morphine 2-4 mg injection 2-4 mg INTRAVENOUS q 4 H PRN polyethylene glycol 3350 17 g packet (MIRALAX, GLYCOLAX) 17 g ORAL DAILY senna-docusate 8.6-50 mg 1 tablet (SENNA-S) 1 tablet ORAL BID oxyCODONE-acetaminophen 5-325 mg 1-2 tablet (PERCOCET) 1-2 tablet ORAL q 4 H PRN metoprolol tartrate (short acting) 25 mg tab(s) (LOPRESSOR) 25 mg ORAL q 12 H dextrose 40 % 15 g 15 g ORAL PRN Or glucagon 1 mg injection (GLUCAGEN) 1 mg INTRAMUSCULAR PRN Or dextrose 50% in water 25 mL syringe 12.5 g INTRAVENOUS PRN Insulin NPH human 8 Units injection pen (intermediate acting) ( NovoLIN N, HumuLIN N) 8 Units SUBCUTANEOUS BID w MEALS insulin lispro pen (rapid acting) (HumaLOG KWIKPEN) SUBCUTANEOUS w MEALS insulin lispro pen (rapid acting) (HumaLOG KWIKPEN) SUBCUTANEOUS AT BEDTIME dextrose 50% in water 25 mL syringe 12.5 g INTRAVENOUS PRN aspirin 162 mg chewable tab(s) 162 mg ORAL DAILY potassium chloride iv piggyback 20 mEq in sterile water 100 mL 20 mEq INTRAVENOUS PRN magnesium sulfate in water 2 g in sterile water 50 ml 2 g INTRAVENOUS PRN(NO DISPENSE) acetaminophen 650 mg tab(s) (TYLENOL) 650 mg ORAL q 6 H PRN enoxaparin 40 mg injection (LOVENOX) 40 mg SUBCUTANEOUS DAILY albuterol 2.5 mg /3 mL (0.083 %) 2.5 mg (PROVENTIL) 2.5 mg INHALATION q 2 H PRN atorvastatin 80 mg tab(s) (LIPITOR) 80 mg ORAL AT BEDTIME Intake/Output 02/17/18 0700 - 02/18/18 0659 02/18/18 0700 - 02/19/18 0659 02/19/18 0700 - 02/20/18 0659 02/20/18 0700 - 02/21/18 0659 02/21/18 0700 - 02/22/18 0659 Intake (ml) 3345 3948 2368.2 720 0 Output (ml) 3376 1881 1570 4885 0 Net (ml) -31 2067 798.2 -4165 0 Surgical Incision 02/18/18 1510 Chest - Midsternal (Active) Dressing Status None: Open to Air 02/20/2018 8:00 PM Frequency of Dressing Change As Needed 02/20/2018 7:30 AM Incision Closures Topical Skin Adhesive 02/20/2018 8:00 PM Drainage Description None 02/20/2018 8:00 PM Drainage Amount None 02/20/2018 8:00 PM Edges Intact 02/20/2018 8:00 PM Hematoma No 02/20/2018 8:00 PM Number of days: 2 Surgical Incision 02/18/18 1510 Leg - Left (Active) Dressing Status None: Open to Air 02/20/2018 8:00 PM Incision Closures Topical Skin Adhesive 02/20/2018 8:00 PM Drainage Description None 02/20/2018 8:00 PM Drainage Amount None 02/20/2018 8:00 PM Edges Intact 02/20/2018 8:00 PM Hematoma No 02/20/2018 8:00 PM Number of days: 2 MNT Billing Type: Initial Assess/15 min 4 units SIGNATURE: Amanda Ernst RD, JOSEF PATIENT NAME: Byron Ambriz DATE: February 21, 2018 TIME: 9:59 AM PAGER: [phone] PROGRESS Observed: 02/21/2018 Status: COMPLETED Source: [place] 8:46 AM CLINIC OTHER CAMPUS REPOSITORY HNO ID: [id number] Author: Janet Baxter Service: Critical Care Author Type: Physician Type: Progress Notes Filed: 02/21/2018 8:56 AM Note Text: CRITICAL CARE PROGRESS NOTE SERVICE DATE: February 21, 2018 SERVICE TIME: 8:47 AM Admission Date: 02/16/2018 AGE: [id number] year old LOS: 5 days REASON FOR ICU ADMISSION: NSTEMI -> S/P CABG on 02/18 Subjective OVERNIGHT EVENTS: Eventful night. Pt w/o any complaints this AM. Objective PAST MEDICAL HISTORY Diagnosis Date - Abnormal cardiovascular stress test - CAD (coronary artery disease) - Chest pain - Dyspnea - GERD (gastroesophageal reflux disease) - Hemorrhage of gastrointestinal tract, unspecified - Internal hemorrhoids without mention of complication - Other convulsions none since 1975 - Pancreatitis - Seizures (HCC) - Type 2 diabetes mellitus with hyperglycemia (HCC) PAST SURGICAL HISTORY Procedure Laterality Date - COLONOSCOP W/ OR W/O BRSH SPEC 04/15/08 - LAP CHOLECYSTECT/CHOLANGIOGRAPHY Social History Marital status: Spouse name: Years of education: Number of children: Social History Main Topics Smoking status: Never Smoker Smokeless tobacco: Former User Types: Chew Alcohol use: Yes Comment: 1x/month beer Drug use: No VITAL SIGNS: BP 122/104 Pulse 96 Temp 36.6 ?C (97.9 ?F) (Temporal Artery) Resp 19 Ht 167.6 cm (5' 6) Wt 76 kg (167 lb 8.8 oz) SpO2 98% BMI 27.04 kg/m? Temp (24hrs), Av.7 ?C (98.1 ?F), Min:36.6 ?C (97.9 ?F), Max:37 ?C (98.6 ?F) Vital signs reviewed. 24 hour Intake AND Output: Intake/Output Summary (Last 24 hours) at 02/21/18 0847 Last data filed at 02/21/18 0600 Gross per 24 hour Intake 720 ml Output 4655 ml Net -3935 ml PHYSICAL EXAM: AUDIO VISUAL MANAGER: Alert and oriented Eyes: PERRLA and PER Neck: Unremarkable; No adenopathy or JVD Cardiovascular: Regular rhythm Respiratory: Clear to auscultation Abdomen: Soft and Nontender Extremities: Edema- Yes Skin: Abnormalities- No VENTILATOR INFORMATION: NA INDWELLING CATHETERS: Lines, Drains, and Airways Line Central Line Quadruple Lumen 02/18/18 0915 Right Neck 2 days INPATIENT MEDICATIONS: Current hospital medications: phenytoin ER 200 mg cap(s) (DILANTIN) 200 mg ORAL DAILY phenytoin ER 200 mg cap(s) (DILANTIN) 200 mg ORAL q 48 HR phenytoin ER 100 mg cap(s) (DILANTIN) 100 mg ORAL q [address] 40 mg tab(s) (PROTONIX) 40 mg ORAL DAILY (6 AM) morphine 2-4 mg injection 2-4 mg INTRAVENOUS q 4 H PRN polyethylene glycol 3350 17 g packet (MIRALAX, GLYCOLAX) 17 g ORAL DAILY senna-docusate 8.6-50 mg 1 tablet (SENNA-S) 1 tablet ORAL BID oxyCODONE-acetaminophen 5-325 mg 1-2 tablet (PERCOCET) 1-2 tablet ORAL q 4 H PRN metoprolol tartrate (short acting) 25 mg tab(s) (LOPRESSOR) 25 mg ORAL q 12 H dextrose 40 % 15 g 15 g ORAL PRN glucagon 1 mg injection (GLUCAGEN) 1 mg INTRAMUSCULAR PRN dextrose 50% in water 25 mL syringe 12.5 g INTRAVENOUS PRN Insulin NPH human 8 Units injection pen (intermediate acting) ( NovoLIN N, HumuLIN N) 8 Units SUBCUTANEOUS BID w MEALS insulin lispro pen (rapid acting) (HumaLOG KWIKPEN) SUBCUTANEOUS w MEALS insulin lispro pen (rapid acting) (HumaLOG KWIKPEN) SUBCUTANEOUS AT BEDTIME dextrose 50% in water 25 mL syringe 12.5 g INTRAVENOUS PRN aspirin 162 mg chewable tab(s) 162 mg ORAL DAILY potassium chloride iv piggyback 20 mEq in sterile water 100 mL 20 mEq INTRAVENOUS PRN magnesium sulfate in water 2 g in sterile water 50 ml 2 g INTRAVENOUS PRN(NO DISPENSE) acetaminophen 650 mg tab(s) (TYLENOL) 650 mg ORAL q 6 H PRN enoxaparin 40 mg injection (LOVENOX) 40 mg SUBCUTANEOUS DAILY albuterol 2.5 mg /3 mL (0.083 %) 2.5 mg (PROVENTIL) 2.5 mg INHALATION q 2 H PRN atorvastatin 80 mg tab(s) (LIPITOR) 80 mg ORAL AT BEDTIME NUTRITION: PO diet DATA: BLOOD GAS: Recent Labs 02/18/18 1525 02/18/18 1356 02/18/18 1330 02/18/18 1329 02/18/18 1301 02/18/18 1234 02/18/18 1204 02/18/18 1201 RESPHCO3 21.9* -- -- -- -- -- -- -- PH 7.345* 7.365 7.340 7.355 7.388 7.395 7.383 7.363 PCO2 41.0 -- -- -- -- -- -- -- [id number] 98.5* -- -- -- -- -- -- -- CBC: Recent Labs 02/21/18 0605 02/20/18 0435 02/19/18 0410 02/18/18 1520 02/18/18 1356 02/18/18 1330 02/18/18 1329 02/18/18 1301 02/18/18 0445 02/17/18 0430 02/16/18 1700 WBC 5.57 5.39 3.49* 6.62 -- -- -- -- -- 5.17 6.16 9.13* HB 10.3* 9.6* 8.3* 11.4* -- -- -- -- -- 13.2* 13.2* 14.2 HCT 29.5* 27.4* 24.4* 32.7* 26* 26* 26* 27* < > 38.0* 38.4* 41.2 PLT 128* 106* 91* 102* -- -- -- -- -- 144 142 179 MCV 88.3 89.5 92.1 89.1 -- -- -- -- -- 88.4 89.9 89.8 < > = values in this interval not displayed. COAG: Labs 02/18/18 1520 02/17/18 2120 02/17/18 1425 02/17/18 04302/16/18 2230 02/16/18 1700 APTT 47.3* 62.9* 42.9* 106.9* 46.0* 57.4* INR 1.03 -- -- -- -- 1.00 BMP: 02/21/1860402/20/18 04302/19/18 1425 02/19/18 0410 02/18/18 1520 02/18/18 1356 02/18/18 1330 02/18/18 1329 02/18/18 1301 02/18/18 0445 02/17/18 0430 02/16/18 1700 GLUC 161* 190* -- 90 117* -- -- -- -- -- 125* 123* 116* NA 138 136 -- 143 144 142 140 139 141 < > 139 141 141 K 3.8 3.8 3.8 3.0* 3.8 3.6 4.1 4.1 3.9 < > 3.7 3.5 3.3* CHLOR 106 107 -- 113* 116* -- -- -- -- -- 109* 108* 107 CO2 30 24 -- 24 25 -- -- -- -- -- 28 27 29 ANION 6* 9 -- 9 7* -- -- -- -- -- 6* 10 8 BUN 8 11 -- 12 9 -- -- -- -- -- 8 8 7 CREAT 0.61* 0.62* -- 0.82 0.60* -- -- -- -- -- 0.62* 0.66* 0.57* < > = values in this interval not displayed. CHEM: Recent Labs 02/21/1860402/20/18 0435 02/19/18 0410 02/18/18 1520 02/18/18 0445 02/17/18 0430 02/16/18 1700 ALB -- -- -- -- -- -- 3.9 TPROT -- -- -- -- -- -- 6.6 CA 8.3* 7.8* 7.3* 7.4* 8.5 8.3* 8.9 MG -- 2.1 2.1 2.5 -- -- 1.9 HEPATIC: Recent Labs 02/16/18 1700 ALKPHOS 69 ALT 30 AST 83* TBILI 0.4 URINALYSIS: Recent Labs 02/18/18 1525 02/18/18 1356 02/18/18 1330 02/18/18 1329 02/18/18 1301 02/18/18 1234 02/18/18 1204 02/18/18 1201 02/17/18 1530 PH 7.345* 7.365 7.340 7.355 7.388 7.395 7.383 7.363 < > -- SPGR -- -- -- -- -- -- -- -- -- 1.007 UGLUC -- -- -- -- -- -- -- -- -- NEGATIVE UBILI -- -- -- -- -- -- -- -- -- NEGATIVE UKET -- -- -- -- -- -- -- -- -- NEGATIVE UPROT -- -- -- -- -- -- -- -- -- NEGATIVE UROBIL -- -- -- -- -- -- -- -- -- 0.2 < > = values in this interval not displayed. CARDIAC: No results for input(s): CKTEST, CKMB, CKMBP, TROPT, PBNP in the last 168 hours. Anticoagulant AND Antiplatelet Medications Start Dose Route Frequency Ordered Stop 02/19/18 0900 aspirin 162 mg chewable tab(s) 162 mg ORAL DAILY 02/18/18 1458 -- 02/18/18 1500 enoxaparin 40 mg injection (LOVENOX) (Surgical High Risk ) 40 mg SUBCUTANEOUS DAILY 02/18/18 1458 -- 02/18/18 1500 pneumatic compression stockings ([place]) 02/18/18 1500 graduated compression stockings ([place], [place]) VTE Prophylaxis: VTE prophylaxis appropriate Assessment/Plan # CABGx4 on 02/18 # NIDDM # HTN PLAN: Continue ASA, atorvastatin Continue insulin per Endo Pulmonary toilet. Ambulate Pain control Pt now on RA. No critical issues or pulmonary issues. Will S/O. Call if needed. SIGNATURE: Janet Baxter MD [facility] PAGER:[phone] DATE of SERVICE: February 21, 2018 TIME of SERVICE: 8:47 AM PROGRESS Observed: 02/21/2018 Status: COMPLETED Source: [place] 7:47 AM [facility] OTHER CAMPUS REPOSITORY HNO ID: [id number] Author: Chapin Zamarripa Service: Cardiac Surgery Author Type: Resident Type: Progress Notes Filed: 02/21/2018 8:22 AM Note Text: Attestation signed by Ty Chappell at 02/24/2018 9:22 AM Attending Note I evaluated the patient and personally participated in the montanez components. I agree with the resident's findings and plan as documented and have discussed the case and management of the patient's care with the resident. Signature: Ty Chappell MD Date: 02/24/2018 Time: 9:22 AM CARDIOTHORACIC SURGERY POSTOP PROGRESS NOTE SERVICE DATE: 02/21/2018 SERVICE TIME: 7:47 AM Subjective S/P SURGERY: Procedure(s) (LRB): BYPASS GRAFT ARTERY CORONARY ON-PUMP USING VENOUS GRAFT(S) AND ARTERIAL GRAFT(S); TWO VENOUS GRAFTS (N/A) DATE OF SURGERY: 02/18/2018 POSTOP DAY #3 LOS: 5 INTERVAL EVENTS / PERTINENT ROS: No acute events. Good diuresis. Chest tubes removed. Ambulating in hallway. Tolerating diet. Chest pain improving. Objective Admission Weight: 75.1 kg (165 lb 9.1 oz) BP 119/85 Pulse 100 Temp 36.6 ?C (97.9 ?F) (Temporal Artery) Resp 19 Ht 167.6 cm (5' 6) Wt 76 kg (167 lb 8.8 oz) SpO2 94% BMI 27.04 kg/m? Body surface area is 1.88 meters squared. Min/Max/Average Temperature AND Blood Pressure: Temp (24hrs), Av.7 ?C (98.1 ?F), Min:36.6 ?C (97.9 ?F), Max:37 ?C (98.6 ?F) Systolic (24hrs), Av , Min:95 , Max:95 Diastolic (24hrs), Av, Min:61, Max:61 Intake/Output Summary (Last 24 hours) at 02/21/18 0747 Last data filed at 02/21/18 0600 Gross per 24 hour Intake 720 ml Output 4665 ml Net -3945 ml TELEMETRY: normal sinus rhythm PHYSICAL EXAM: Gen - laying in bed, NAD, AANDOx3 HEENT - EOMI, mucus membranes moist, PEERL CV - HR and BP WNL on monitors. On Lloyd. Chest incision appears well. Resp - respirations unlabored. Abd - soft, non distended, non tender. EXT - JAIN, no edema. (+) SCDs Lines, Drains, and Airways Line Central Line Quadruple Lumen 02/18/18 0915 Right Neck 2 days DATA: Diagnostic tests reviewed for today's visit: CBC, Coags, BMP, Mg, Phos Recent Labs 02/21/18 0605 02/20/18 0435 02/19/18 1425 02/19/18 0410 02/18/18 1520 WBC 5.57 5.39 -- 3.49* 6.62 HB 10.3* 9.6* -- 8.3* 11.4* HCT 29.5* 27.4* -- 24.4* 32.7* PLT 128* 106* -- 91* 102* INR -- -- -- -- 1.03 APTT -- -- -- -- 47.3* NA 138 136 -- 143 144 K 3.8 3.8 3.8 3.0* 3.8 CHLOR 106 107 -- 113* 116* CO2 30 24 -- 24 25 BUN 8 11 -- 12 9 CREAT 0.61* 0.62* -- 0.82 0.60* GLUC 161* 190* -- 90 117* CA 8.3* 7.8* -- 7.3* 7.4* MG -- 2.1 -- 2.1 2.5 Liver Function, Amylase, AND Lipase Cardiac Enzymes ABGs Recent Labs 02/18/18 1525 02/18/18 1356 02/18/18 1330 02/18/18 1329 PH 7.345* 7.365 7.340 7.355 PCO2 41.0 -- -- -- PO2 137.6* 360.0* 40.0 318.0* BE -3.6 -- -- -- HCO3 -- 23.1 23.2 24.4 Assessment/Plan CABG - 4 vessel 02/18. - on ASA, statin, beta radha. - plavix started yesterday. - Pain control. - perioperative antibiotics. - remove pacer wires. - encourage ambulation. anticipated Post-Op hypoxia: - on NC - wean as able. - pain control. - IS/deep breathing. - Chest tubes removed. Anticipated post-op anemia: - Hgb stable post op. - No indication for transfusion. - Daily CBCs. FEN: - Tolerating cardiac diet. - Lytes WNL today. Daily BMP and replete as needed. - weight down 2 kg this AM. : - adequate UOP after weaver removal. - decreased weight this AM. DM: - off insulin drip. - appreciate endo recs - likely will go home without need for insulin. 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 DVT ppx: - lovenox and SCDs - will likely be able to transfer to floor today. Chapin Zamarripa MD General Surgery, PGY-2 Pager - [phone] 02/21/18 7:52 AM GLUCOSE METER Collected: 02/21/2018 Status: F Source: [facility] 7:35 AM HEALTH SYSTEM REPOSITORY TYPE CODE TESTS RESULT OUT OF REFERENCE UNITS RANGE LAB GLUBL(LOINC 70-99 mg/dL ) High Glucose Meter 176 Result Comment: RN NOTIFIED Performed By: #### GLMET #### [facility] [address] [place] [id number] HEMOGRAM/DIFF Collected: 02/21/2018 Status: F Source: [facility] 6:05 AM HEALTH SYSTEM REPOSITORY TYPE CODE TESTS RESULT OUT OF REFERENCE UNITS RANGE LAB WBC(LOINC) 4.23-9.07 thou/cmm WBC 5.57 LAB RBC(LOINC) 4.63-6.08 mil/cmm Low RBC 3.34 LAB HGB(LOINC) 13.7-17.5 g/dL Low Hgb 10.3 LAB HCT(LOINC) 40.1-51.0 % Low Hct 29.5 LAB MCV(LOINC) 83.2-95.6 fl MCV 88.3 LAB MCH(LOINC) 25.7-32.2 pg MCH 30.8 LAB MCHC(LOINC 32.3-36.5 % ) MCHC 34.9 LAB RDW(LOINC) 11.6-14.4 % RDW 12.3 LAB RDWSD(LOIN 36.1-45.8 fl C) RDW SD 39.8 LAB PLT(LOINC) 141-365 thou/cmm Low Platelet 128 LAB MPV(LOINC) 8.7-12.0 fl MPV 9.8 LAB SEG(LOINC) % Seg Neutrophil 67.7 LAB IGRE(LOINC % ) Immature Grans 0.50 LAB LYMPH(LOIN % C) Lymphocyte 18.5 LAB MNO(LOINC) % Monocyte 6.3 LAB EOSIN(LOIN % C) Eosinophil 6.6 LAB BASO(LOINC % ) Basophil 0.4 LAB SEGN(LOINC 1.78-5.38 thou/cmm ) Abs. Neut 3.77 LAB IGAB(LOINC 0.00-0.05 thou/cmm ) Abs Immature Grans 0.03 LAB LYMN(LOINC 0.84-2.85 thou/cmm ) Abs. Lymph 1.03 LAB MONON(LOIN 0.30-0.82 thou/cmm C) Abs. [place] 0.35 LAB EOSN(LOINC 0.04-0.54 thou/cmm ) Abs. Eosin 0.37 LAB BASON(LOIN 0.01-0.08 thou/cmm C) Abs. Baso 0.02 Performed By: #### CBCD1 #### [facility] [address] [place] [id number] BASIC PANEL Collected: 02/21/2018 Status: F Source: [facility] 6:05 AM HEALTH SYSTEM REPOSITORY TYPE CODE TESTS RESULT OUT OF REFERENCE UNITS RANGE LAB NA(LOINC) 136-145 mEq/L Sodium Blood 138 LAB K(LOINC) 3.5-5.1 mEq/L Potassium Blood 3.8 LAB CL(LOINC) 98-107 mEq/L Chloride Blood 106 LAB CO2(LOINC) 21-32 mEq/L CO2 Blood 30 LAB GLU(LOINC) 70-99 mg/dL Glucose High Blood 161 LAB BUN(LOINC) 7-18 mg/dL BUN Blood 8 LAB CREA(LOINC 0.67-1.17 mg/dL ) Low Creatinine Blood 0.61 LAB CA(LOINC) 8.5-10.1 mg/dL Low Calcium Blood 8.3 LAB ANGAP(LOIN 8-16 C) Low Anion Gap 6 Performed By: #### P8 #### [place] [id number] MDRD GFR Collected: 02/21/2018 Status: F Source: [facility] 6:05 AM HEALTH SYSTEM REPOSITORY TYPE CODE TESTS RESULT OUT OF RANGE REFERENCE UNITS LAB GFRFN(LOINC >60mL/min/1.73m ) 2 eGFR >60 Result Comment: If the patient is , multiply the result by 1.210. Performed By: #### GFR #### [address] [id number] GLUCOSE METER Collected: 02/20/2018 Status: F Source: [facility] 9:08 PM HEALTH SYSTEM REPOSITORY TYPE CODE TESTS RESULT OUT OF REFERENCE UNITS RANGE LAB GLUBL(LOINC 70-99 mg/dL ) High Glucose Meter 212 Result Comment: RN NOTIFIED Performed By: #### GLMET #### [facility] [address] [place], [place] [address] GLUCOSE METER Collected: 02/20/2018 Status: F Source: [facility] 4:38 PM HEALTH SYSTEM REPOSITORY TYPE CODE TESTS RESULT OUT OF REFERENCE UNITS RANGE LAB GLUBL(LOINC 70-99 mg/dL ) High Glucose Meter 199 Result Comment: RN NOTIFIED Performed By: #### GLMET #### [place] [id number] CASE MANAGEM Observed: 02/20/2018 Status: COMPLETED Source: [place] 2:20 PM CLINIC OTHER CAMPUS REPOSITORY HNO ID: [id number] Author: Clara (Rn) MINDY Henderson Service: Care Management Author Type: Registered Nurse Type: Care Mgt Progress Note Filed: 02/20/2018 2:22 PM Note Text: CARE MANAGEMENT PROGRESS NOTE SERVICE DATE: 02/20/2018 SERVICE TIME: 2:20 PM LOS: 4 days S/P 4 vessel CABG on 02/18. Removing pacer wires today, possibly chest tubes. Weaning oxygen. Current plan is home with [facility]. VNS following. SIGNATURE: Clara Henderson RN PATIENT NAME: Byron Ambriz DATE: February 20, 2018 TIME: 2:20 PM PAGER/CONTACT #: [phone] PROGRESS Observed: 02/20/2018 Status: COMPLETED Source: [place] 1:13 PM CLINIC OTHER CAMPUS REPOSITORY HNO ID: [id number] Author: Jennifer Valdez (Pharmacist) Service: Pharmacy Author Type: Pharmacist Type: Progress Notes Filed: 02/20/2018 3:51 PM Note Text: MEDICATION HISTORY AND MEDICATION RECONCILIATION Patient Name:Angi Ambriz : 1955 Source of history:Pharmacy records: [facility] and [facility] via [facility] Reconcile Outside Meds report Medication Nonadherence Identified: Unable to assess at this time The above information represents the best possible medication history: Yes Reconciliation completed? Yes Medications intentionally held at admission: metformin, fish oil, MVI, clopidogrel Additional comments: OTCs verified with patient. Added clopidogrel- not previously on list, filled 01/16/18. Home phenytoin dose entered into home med list. Last dose not completed as patient has been admitted since 02/16/18. Allergies: ALLERGIES No Known Allergies Preferred Pharmacy: [facility] mail order and [facility] pharmacy in [place]. Current [employer] Medications: Prior to Admission medications as of 02/20/18 1315 Medication Sig Last Dose Taking pantoprazole DR (PROTONIX) 40 mg tablet Take 40 mg by mouth once daily. 02/15/2018 at Unknown time Patient unsure metFORMIN ER (GLUCOPHAGE XR) 500 mg 24 hr tablet Take 2 tablets by mouth twice daily. 02/15/2018 at Unknown time Yes phenytoin ER (DILANTIN) 100 mg ER capsule Take by mouth. 200mg every morning; PM dose alternates between 100mg and 200mg every other day. 02/15/2018 at Unknown time Yes ASPIRIN ORAL Take by mouth. 02/16/2018 at Unknown time Yes DOCOSAHEXANOIC ACID/EPA (FISH OIL ORAL) Take by mouth. 02/16/2018 at Unknown time Yes MULTIVITAMIN TAB Take one(1) tablet daily. 02/15/2018 at Unknown time Yes clopidogrel (PLAVIX) 75 mg tablet Take 75 mg by mouth once daily. Yes- held recently JENNIFER VALDEZ, PHARMACIST February 20, 2018 1:15 PM GLUCOSE METER Collected: 02/20/2018 Status: F Source: [facility] 11:29 AM HEALTH SYSTEM REPOSITORY TYPE CODE TESTS RESULT OUT OF REFERENCE UNITS RANGE LAB GLUBL(LOINC 70-99 mg/dL ) High Glucose Meter 256 Result Comment: RN NOTIFIED Performed By: #### GLMET #### [place] [id number] CONSULT PROG Observed: 02/20/2018 Status: COMPLETED Source: [place] 9:40 AM CLINIC OTHER CAMPUS REPOSITORY HNO ID: [id number] Author: Lenny Arias Service: Endocrinology Author Type: Physician Type: Consult Progress Note Filed: 02/20/2018 9:43 AM Note Text: DIABETES PROGRESS NOTE SERVICE DATE: 02/20/2018 SERVICE TIME: 0800 REASON FOR CONSULT: DM Type 2 REQUESTING PHYSICIAN: No referring provider defined for this encounter. Subjective HISTORY OF PRESENT ILLNESS: Now off insulin drip. On NPH BID and Humalog scale. Glucoses 120 to 180 Component GLUCOSE METER Latest Ref Rng AND Units 70 - 99 mg/dL 02/19/2018 4:12 AM 95 02/19/2018 7:58 AM 80 02/19/2018 10:26 AM 187 (H) 02/19/2018 11:20 AM 180 (H) 02/19/2018 12:37 PM 123 (H) 02/19/2018 2:22 PM 94 02/19/2018 5:07 PM 99 02/19/2018 9:06 PM 183 (H) 02/19/2018 11:52 PM 183 (H) 02/20/2018 132 (H) PAST MEDICAL HISTORY Diagnosis Date - Abnormal cardiovascular stress test - CAD (coronary artery disease) - Chest pain - Dyspnea - GERD (gastroesophageal reflux disease) - Hemorrhage of gastrointestinal tract, unspecified - Internal hemorrhoids without mention of complication - Other convulsions none since 1975 - Pancreatitis - Seizures (HCC) - Type 2 diabetes mellitus with hyperglycemia (HCC) PAST SURGICAL HISTORY Procedure Laterality Date - COLONOSCOP W/ OR W/O BRSH SPEC 04/15/08 - LAP CHOLECYSTECT/CHOLANGIOGRAPHY FAMILY HISTORY Problem Relation Age of Onset - Hypertension Mother - Heart Brother - Lipids Brother Social History Substance Use Topics - Smoking status: Never Smoker - Smokeless tobacco: Former User Types: Chew - Alcohol use Yes Comment: 1x/month beer Current Facility-Administered Medications: [START ON 02/21/2018] phenytoin ER 200 mg cap(s) (DILANTIN) 200 mg ORAL DAILY Lauren (Le) Honorio phenytoin ER 200 mg cap(s) (DILANTIN) 200 mg ORAL q 48 HR Lauren (Manager Acquisition) Honorio [START ON 02/21/2018] phenytoin ER 100 mg cap(s) (DILANTIN) 100 mg ORAL q 48 HR Lauren (Manager Acquisition) Honorio pantoprazole DR 40 mg tab(s) (PROTONIX) 40 mg ORAL DAILY (6 AM) Lauren (Le) Honorio morphine 2-4 mg injection 2-4 mg INTRAVENOUS q 4 H PRN Lauren (Manager Acquisition) Honorio metoprolol tartrate (short acting) 12.5 mg tab(s) (LOPRESSOR) 12.5 mg ORAL q 12 H Lauren (Manager Acquisition) Honorio polyethylene glycol 3350 17 g packet (MIRALAX, GLYCOLAX) 17 g ORAL DAILY Lauren (Manager Acquisition) Honorio senna-docusate 8.6-50 mg 1 tablet (SENNA-S) 1 tablet ORAL BID Lauren (Le) Honorio furosemide 20 mg injection (LASIX) 20 mg INTRAVENOUS ONCE Lauren (Manager Acquisition) Honorio oxyCODONE-acetaminophen 5-325 mg 1-2 tablet (PERCOCET) 1-2 tablet ORAL q 4 H PRN Lauren (Le) Honorio phenytoin ER 100 mg cap(s) (DILANTIN) 100 mg ORAL ONCE Lauren (Manager Acquisition) Honorio dextrose 40 % 15 g 15 g ORAL PRN Prosper Tyson Or glucagon 1 mg injection (GLUCAGEN) 1 mg INTRAMUSCULAR PRN Prosper Tyson Or dextrose 50% in water 25 mL syringe 12.5 g INTRAVENOUS PRN Prosper Tyson Insulin NPH human 8 Units injection pen (intermediate acting) ( NovoLIN N, HumuLIN N) 8 Units SUBCUTANEOUS BID w MEALS Prosper Tyson 8 Units at 02/20/18 0904 insulin lispro pen (rapid acting) (HumaLOG KWIKPEN) SUBCUTANEOUS w MEALS Prosper Tyson insulin lispro pen (rapid acting) (HumaLOG KWIKPEN) SUBCUTANEOUS AT BEDTIME Prosper Tyson 1 Units at 02/19/182110 dextrose 50% in water 25 mL syringe 12.5 g INTRAVENOUS PRN Cathleen (Pa) Edilma aspirin 162 mg chewable tab(s) 162 mg ORAL DAILY Cathleen (Pa) Edilma 162 mg at 02/20/18 0904 potassium chloride iv piggyback 20 mEq in sterile water 100 mL 20 mEq INTRAVENOUS PRN Cathleen (Pa) Edilma Last Rate: 100 mL/hr at 02/20/18 0633 20 mEq at 02/20/18 0633 magnesium sulfate in water 2 g in sterile water 50 ml 2 g INTRAVENOUS PRN(NO DISPENSE) Cathleen (Pa) Edilma Last Rate: 25 mL/hr at 02/19/18 0523 2 g at 02/19/18 0523 acetaminophen 650 mg tab(s) (TYLENOL) 650 mg ORAL q 6 H PRN Cathleen (Pa) Edilma enoxaparin 40 mg injection (LOVENOX) 40 mg SUBCUTANEOUS DAILY Cathleen (Pa) Edilma 40 mg at 02/20/18 0904 albuterol 2.5 mg /3 mL (0.083 %) 2.5 mg (PROVENTIL) 2.5 mg INHALATION q 2 H PRN Cathleen (Pa) Edilma atorvastatin 80 mg tab(s) (LIPITOR) 80 mg ORAL AT BEDTIME Veronique (Res) Roscoe 80 mg at 02/19/182110 Allergies As of Date: 02/16/2018 (No Known Allergies) Fully Assessed 02/16/2018 REVIEW OF SYSTEMS: GENERAL: no fever, chills or acute changes in weight in the last 6 months SKIN: no rashes, pruritis or dry skin CARDIAC: incisional chest pain PULMONARY: productive cough Objective PHYSICAL EXAM: BP 124/75 Pulse 99 Temp 36.8 ?C (98.2 ?F) Resp 15 Ht 167.6 cm (5' 6) Wt 78.6 kg (173 lb 4.5 oz) SpO2 95% BMI 27.97 kg/m2 GENERAL: Well appearing, alert, in no acute distress, well- hydrated, well nourished. SKIN: skin color, texture, turgor normal, no rashes or lesions. HEART: RRR without murmur, gallop, or rubs. No ectopy PULMONARY: Lungs clear to auscultation. No wheezing, rhonchi, rales EXTREMITIES: no edema, no calluses or ulcers present. DATA: Diagnostic tests reviewed for today's visit: Most recent labs glucose log Assessment/Plan Active Problems: Type 2 Diabtetes: Assessment AND Plan: continue current regimen of NPH BID plus scale. Was on metformin only at home. Will likely go home on orals only after this hospital stay, barring any unforseen complications SIGNATURE: Lenny Arias MD PATIENT NAME: Byron Ambriz DATE: February 20, 2018 TIME: 9:40 AM PAGER/CONTACT #: [phone] GLUCOSE METER Collected: 02/20/2018 Status: F Source: [facility] 7:29 AM HEALTH SYSTEM REPOSITORY TYPE CODE TESTS RESULT OUT OF REFERENCE UNITS RANGE LAB GLUBL(LOINC 70-99 mg/dL ) High Glucose Meter 132 Result Comment: RN NOTIFIED Performed By: #### GLMET #### [place] [id number] PROGRESS Observed: 02/20/2018 Status: COMPLETED Source: [place] 7:28 AM CLINIC OTHER CAMPUS REPOSITORY HNO ID: [id number] Author: Jose Ramirez Service: Pulmonary Disease Author Type: Physician Type: Progress Notes Filed: 02/20/2018 7:31 AM Note Text: PULMONARY/CCM PROGRESS NOTE [facility] SERVICE DATE: 02/20/2018 SERVICE TIME: 7:30 AM Subjective Doing great No 02 Off drips IS Walked already Objective CURRENT MEDICATIONS Current Facility-Administered Medications: PHENYLephrine 10 mg in D5W 250 mL (NEOSYNEPHRINE) 0-100 mcg/min INTRAVENOUS CONTINUOUS Ty Chappell Stopped at 02/19/18 1700 dextrose 40 % 15 g 15 g ORAL PRN Prosper Tyson Or glucagon 1 mg injection (GLUCAGEN) 1 mg INTRAMUSCULAR PRN Prosper Tyson Or dextrose 50% in water 25 mL syringe 12.5 g INTRAVENOUS PRN Prosper Tyson Insulin NPH human 8 Units injection pen (intermediate acting) ( NovoLIN N, HumuLIN N) 8 Units SUBCUTANEOUS BID w MEALS Prosper Tyson 8 Units at 02/19/18 1911 insulin lispro pen (rapid acting) (HumaLOG KWIKPEN) SUBCUTANEOUS w MEALS Prosper Tyson insulin lispro pen (rapid acting) (HumaLOG KWIKPEN) SUBCUTANEOUS AT BEDTIME Prosper Tyson 1 Units at 02/19/18 2111 insulin regular iv infusion 250 units in NaCl 0.9% 250 mL - AK CARD SURG NOMOGRAM 0-12 Units/hr INTRAVENOUS CONTINUOUS Cathleen (Pa) Edilma Stopped at 02/19/18 1700 insulin regular human iv bolus 10 Units 10 Units INTRAVENOUS PRN Cathleen (Pa) Edilma dextrose 50% in water 25 mL syringe 12.5 g INTRAVENOUS PRN Cathleen (Pa) Edilma dexmedetomidine 400 mcg in NaCl 0.9% 100 mL (PRECEDEX) 0.2- 0.7 mcg/kg/hr INTRAVENOUS CONTINUOUS Cathleen (Pa) Edilma Stopped at 02/19/18 1430 aspirin 162 mg chewable tab(s) 162 mg ORAL DAILY Cathleen (Pa) Edilma 162 mg at 02/19/18 0929 potassium chloride iv piggyback 20 mEq in sterile water 100 mL 20 mEq INTRAVENOUS PRN Cathleen (Pa) Edilma Last Rate: 100 mL/hr at 02/20/18 0633 20 mEq at 02/20/18 0633 magnesium sulfate in water 2 g in sterile water 50 ml 2 g INTRAVENOUS PRN(NO DISPENSE) Cathleen (Pa) Edilma Last Rate: 25 mL/hr at 02/19/18 0523 2 g at 02/19/18 0523 acetaminophen 650 mg tab(s) (TYLENOL) 650 mg ORAL q 6 H PRN Cathleen (Pa) Edilma enoxaparin 40 mg injection (LOVENOX) 40 mg SUBCUTANEOUS DAILY Cathleen (Pa) Edilma 40 mg at 02/19/18 0929 NaCl 0.9% iv infusion 50 mL/hr INTRAVENOUS CONTINUOUS Cathleen (Pa) Edilma Stopped at 02/20/18 0300 albuterol 2.5 mg /3 mL (0.083 %) 2.5 mg (PROVENTIL) 2.5 mg INHALATION q 2 H PRN Cathleen (Pa) Edilma midazolam (PF) 2 mg injection (VERSED) 2 mg INTRAVENOUS q 6 H PRN Cathleen (Pa) Edilma oxyCODONE-acetaminophen 5-325 mg 1-2 tablet (PERCOCET) 1-2 tablet ORAL q 4 H PRN Cathleen (Pa) Edilma 2 tablet at 02/20/18 0636 morphine 2-4 mg injection 2-4 mg INTRAVENOUS q 1 H PRN Cathleen (Pa) Edilma 4 mg at 02/20/18 0708 nitroglycerin 50 mg in D5W 250 mL 5-200 mcg/min INTRAVENOUS CONTINUOUS Cathleen (Pa) Edilma Stopped at 02/18/18 1627 phenytoin ER 100 mg cap(s) (DILANTIN) 100 mg ORAL DAILY Veronique (Res) Roscoe 100 mg at 02/19/18 0929 atorvastatin 80 mg tab(s) (LIPITOR) 80 mg ORAL AT BEDTIME Veronique (Res) Roscoe 80 mg at 02/19/18 2111 Intake/Output Summary (Last 24 hours) at 02/20/18 0730 Last data filed at 02/20/18 0700 Gross per 24 hour Intake 2368.2 ml Output 1505 ml Net 863.2 ml NEW LABS/MICRO DATA/RADIOLOGY FILMS ABG: Recent Labs 02/18/18 1525 PH 7.345* PO2 137.6* PCO2 41.0 BMP: Glucose (mg/dL) Date Value 02/20/2018 190 Potassium (mEq/L) Date Value 02/20/2018 3.8 Sodium (mEq/L) Date Value 02/20/2018 136 Chloride (mEq/L) Date Value 02/20/2018 107 CO2 (mEq/L) Date Value 02/20/2018 24 Creatinine (mg/dL) Date Value 02/20/2018 0.62 BUN (mg/dL) Date Value 02/20/2018 11 Anion Gap (no units) Date Value 02/20/2018 9 Calcium (mg/dL) Date Value 02/20/2018 7.8 CBC: HGB (g/dL) Date Value 02/20/2018 9.6 02/19/2018 8.3 02/18/2018 11.4 Hematocrit (%) Date Value 02/20/2018 27.4 02/19/2018 24.4 02/18/2018 32.7 WBC (thou/cmm) Date Value 02/20/2018 5.39 02/19/2018 3.49 02/18/2018 6.62 CXR review: Culture data: CT chest: 02/20/18 0400 02/20/18 0500 02/20/18 0600 02/20/18 0700 BP: 124/75 Pulse: 94 94 111 110 Resp: 17 17 23 24 Temp: TempSrc: SpO2: 98% 99% 99% 96% Weight: 78.6 kg (173 lb 4.5 oz) Height: PHYSICAL EXAM: VITALS: as above, reviewed. [place] cvl GENERAL: AAOx3, pleasant, resting in chair, NAD cordial, ENT: no palpable LA, no overt JVD RESPIRATORY: CTAB, even/unlabored respirations at rest. No accessory muscle use, no pursed lip breathing, no wheezing, no conversational dyspnea. CARDIOVASCULAR: Normal S1S2, RRR, no major murmurs, cts GI: Abdomen soft, nondistended, nontender, bowel sounds present x4 EXTREMITIES: No clubbing, cyanosis, edema. MAEx4 ASSESSMENT: Active Hospital Problems Diagnosis - S/P CABG x 4 CABG x 4 (morales-lad; elise-diag; svg-RI; svg-OM) ; 02/22 Dr Chappell - NSTEMI (non-ST elevated myocardial infarction) (HCC) 1) satisfactory , uncomplicated OHS Plan: 1. Call prn 2. Dc CTs soon 3. Off drips SIGNATURE: Jose Ramirez MD PATIENT NAME: Byron Ambriz DATE: February 20, 2018 TIME: 7:30 AM PAGER/CONTACT #: [phone] PROGRESS Observed: 02/20/2018 Status: COMPLETED Source: [place] 6:43 AM [facility] REPOSITORY O ID: [id number] Author: Chapin Zamarripa Service: Cardiac Surgery Author Type: Resident Type: Progress Notes Filed: 02/20/2018 9:46 AM Note Text: Attestation signed by Ty Chappell at 02/24/2018 9:33 AM Attending Note I evaluated the patient and personally participated in the montanez components. I agree with the resident's findings and plan as documented and have discussed the case and management of the patient's care with the resident. Signature: Ty Chappell MD Date: 02/24/2018 Time: 9:33 AM CARDIOTHORACIC SURGERY POSTOP PROGRESS NOTE SERVICE DATE: 02/20/2018 SERVICE TIME: 6:43 AM Subjective S/P SURGERY: Procedure(s) (LRB): BYPASS GRAFT ARTERY CORONARY ON-PUMP USING VENOUS GRAFT(S) AND ARTERIAL GRAFT(S); TWO VENOUS GRAFTS (N/A) DATE OF SURGERY: 02/18/2018 POSTOP DAY #2 LOS: 4 INTERVAL EVENTS / PERTINENT ROS: No acute events. Lloyd weaned off yesterday. Tolerating diet. Passing gas. Pain controlled. Ambulating. Objective Admission Weight: 75.1 kg (165 lb 9.1 oz) BP 124/75 Pulse 94 Temp 36.7 ?C (98.1 ?F) Resp 17 Ht 167.6 cm (5' 6) Wt 74.8 kg (164 lb 14.5 oz) SpO2 99% BMI 26.62 kg/m? Body surface area is 1.87 meters squared. Min/Max/Average Temperature AND Blood Pressure: Temp (24hrs), Av.7 ?C (98 ?F), Min:36.3 ?C (97.3 ?F), Max:37.4 ?C (99.3 ?F) Systolic (24hrs), Av , Min:95 , Max:95 Diastolic (24hrs), Av, Min:61, Max:61 Intake/Output Summary (Last 24 hours) at 02/20/18 0643 Last data filed at 02/20/18 0300 Gross per 24 hour Intake 2268.2 ml Output 1341 ml Net 927.2 ml TELEMETRY: normal sinus rhythm PHYSICAL EXAM: Gen - laying in bed, NAD, AANDOx3 HEENT - EOMI, mucus membranes moist, PEERL CV - HR and BP WNL on monitors. On Lloyd. Chest incision appears well. Resp - respirations unlabored. Chest tubes with of 285,494 cc output. Abd - soft, non distended, non tender. EXT - JAIN, no edema. (+) SCDs Lines, Drains, and Airways Line Arterial Line 02/18/18 0900 Arterial Line Left Radial 1 day Central Line Quadruple Lumen 02/18/18 0915 Right Neck 1 day Peripheral 02/18/18 0855 Right Hand 18 Gauge 1 day Drain Chest Tube 02/18/18 1510 Assessment Mediastinal Tube #1 1 day Chest Tube 02/18/18 1510 Assessment Pleural 1 day Chest Tube 02/18/18 1510 Assessment Pleural Tube #2 1 day DATA: Diagnostic tests reviewed for today's visit: CBC, Coags, BMP, Mg, Phos Recent Labs 02/20/18 0435 02/19/18 1425 02/19/18 0410 02/18/18 1520 02/17/18 2120 02/17/18 1425 WBC 5.39 -- 3.49* 6.62 < > -- -- HB 9.6* -- 8.3* 11.4* < > -- -- HCT 27.4* -- 24.4* 32.7* < > -- -- PLT 106* -- 91* 102* < > -- -- INR -- -- -- 1.03 -- -- -- APTT -- -- -- 47.3* -- 62.9* 42.9* NA 136 -- 143 144 < > -- -- K 3.8 3.8 3.0* 3.8 < > -- -- CHLOR 107 -- 113* 116* < > -- -- CO2 24 -- 24 25 < > -- -- BUN 11 -- 12 9 < > -- -- CREAT 0.62* -- 0.82 0.60* < > -- -- GLUC 190* -- 90 117* < > -- -- CA 7.8* -- 7.3* 7.4* < > -- -- MG 2.1 -- 2.1 2.5 -- -- -- < > = values in this interval not displayed. Liver Function, Amylase, AND Lipase Cardiac Enzymes ABGs Recent Labs 02/18/18 1525 02/18/18 1356 02/18/18 1330 02/18/18 1329 PH 7.345* 7.365 7.340 7.355 PCO2 41.0 -- -- -- PO2 137.6* 360.0* 40.0 318.0* BE -3.6 -- -- -- HCO3 -- 23.1 23.2 24.4 Assessment/Plan CABG - 4 vessel 02/18. - on ASA, statin. - Start beta radha today. - Pain control. - perioperative antibiotics. - will remove pacer wires. - encourage ambulation. anticipated Post-Op hypoxia: - on NC - wean as able. - pain control. - IS/deep breathing. - Chest x-ray appears clear this AM. Read pending. - May remove chest tubes today. Anticipated post-op anemia: - Hgb 9.6 this AM. Vitals are stable. - No indication for transfusion. - Daily CBCs. FEN: - Tolerating cardiac diet. - Lytes WNL today. Daily BMP and replete as needed. - dose of lasix today - fluid overload. : - adequate UOP after weaver removal. - CXR appears well, but is net positive fluid. No diuretic today. DM: - appreciate endo recs. 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 DVT ppx: - lovenox and SCDs - will keep in CVICU today. Chapin Zamarripa MD General Surgery, PGY-2 Pager - [phone] 02/20/18 6:47 AM CHEST 1 VIEW Observed: 02/20/2018 Status: F Source: [place] 5:57 AM [facility] REPOSITORY Performed at [facility] APPROVED BY: Byron Mathias MD Portable frontal chest, 0533 hours: CLINICAL INDICATION: Status post CABG. Postoperative day 1. COMPARISON: Daily prior chest radiographs. A right internal jugular central venous catheter remains in unaltered position. Bilateral thoracostomy tubes remain. There is bibasilar atelectasis. There is blunting of the right lateral costophrenic angle. Prominent cardiac and mediastinal silhouette. Findings of median sternotomy. IMPRESSION: Bibasilar atelectasis. Possible small right pleural effusion. Life-support equipment as noted. HEMOGRAM Collected: 02/20/2018 Status: F Source: [facility] 4:35 AM HEALTH SYSTEM REPOSITORY TYPE CODE TESTS RESULT OUT OF REFERENCE UNITS RANGE LAB WBC(LOINC) 4.23-9.07 thou/cmm WBC 5.39 LAB RBC(LOINC) 4.63-6.08 mil/cmm Low RBC 3.06 LAB HGB(LOINC) 13.7-17.5 g/dL Low Hgb 9.6 LAB HCT(LOINC) 40.1-51.0 % Low Hct 27.4 LAB MCV(LOINC) 83.2-95.6 fl MCV 89.5 LAB MCH(LOINC) 25.7-32.2 pg MCH 31.4 LAB MCHC(LOINC) 32.3-36.5 % MCHC 35.0 LAB RDW(LOINC) 11.6-14.4 % RDW 12.5 LAB RDWSD(LOINC 36.1-45.8 fl ) RDW SD 40.2 LAB PLT(LOINC) 141-365 thou/cmm Low Platelet 106 LAB MPV(LOINC) 8.7-12.0 fl MPV 9.8 Performed By: #### CBC1 #### [facility] [address] [place] [address] BASIC PANEL Collected: 02/20/2018 Status: F Source: [place] 4:35 AM [facility] SYSTEM REPOSITORY TYPE CODE TESTS RESULT OUT OF REFERENCE UNITS RANGE LAB NA(LOINC) 136-145 mEq/L Sodium Blood 136 LAB K(LOINC) 3.5-5.1 mEq/L Potassium Blood 3.8 LAB CL(LOINC) 98-107 mEq/L Chloride Blood 107 LAB CO2(LOINC) 21-32 mEq/L CO2 Blood 24 LAB GLU(LOINC) 70-99 mg/dL Glucose High Blood 190 LAB BUN(LOINC) 7-18 mg/dL BUN Blood 11 LAB CREA(LOINC 0.67-1.17 mg/dL ) Low Creatinine Blood 0.62 LAB CA(LOINC) 8.5-10.1 mg/dL Low Calcium Blood 7.8 LAB ANGAP(LOIN 8-16 C) Anion Gap 9 Performed By: #### P8 #### [place] [address] MAGNESIUM BLOOD Collected: 02/20/2018 Status: F Source: [facility] 4:35 AM HEALTH SYSTEM REPOSITORY TYPE CODE TESTS RESULT OUT OF REFERENCE UNITS RANGE LAB MAG(LOINC) 1.6-2.6 mg/dL Magnesium Blood 2.1 Performed By: #### MAG #### [place] [address] MDRD GFR Collected: 02/20/2018 Status: F Source: [facility] 4:35 AM HEALTH SYSTEM REPOSITORY TYPE CODE TESTS RESULT OUT OF RANGE REFERENCE UNITS LAB GFRFN(LOINC >60mL/min/1.73m ) 2 eGFR >60 Result Comment: If the patient is , multiply the result by 1.210. Performed By: #### GFR #### [place] [address] GLUCOSE METER Collected: 02/19/2018 Status: F Source: [facility] 11:52 PM HEALTH SYSTEM REPOSITORY TYPE CODE TESTS RESULT OUT OF REFERENCE UNITS RANGE LAB GLUBL(LOINC 70-99 mg/dL ) High Glucose Meter 183 Result Comment: RN NOTIFIED Performed By: #### GLMET #### [place] [address] GLUCOSE METER Collected: 02/19/2018 Status: F Source: [facility] 9:06 PM HEALTH SYSTEM REPOSITORY TYPE CODE TESTS RESULT OUT OF REFERENCE UNITS RANGE LAB GLUBL(LOINC 70-99 mg/dL ) High Glucose Meter 183 Result Comment: RN NOTIFIED Performed By: #### GLMET #### [address] [address] NURSING PROG Observed: 02/19/2018 Status: COMPLETED Source: [place] 6:15 PM [facility] REPOSITORY HNO ID: [id number] Author: Stefani (Rn) MINDY Breen Service: (none) Author Type: Registered Nurse Type: Nursing Progress Note Filed: 02/19/2018 7:03 PM Note Text: Notified Dr. Chappell of pt only being able to urinate 100ml after the pt's weaver has been removed. No new orders received at this time. GLUCOSE METER Collected: 02/19/2018 Status: F Source: [facility] 5:07 PM HEALTH SYSTEM REPOSITORY TYPE CODE TESTS RESULT OUT OF REFERENCE UNITS RANGE LAB GLUBL(LOINC 70-99 mg/dL ) Glucose Meter 99 Result Comment: RN NOTIFIED Performed By: #### GLMET #### [address] [address] THERAPY NT Observed: 02/19/2018 Status: COMPLETED Source: [place] 3:10 PM [facility] REPOSITORY HNO ID: [id number] Author: Yudelka (Pt) SEUN Diallo Service: Physical Therapy Author Type: Physical Therapist Type: Therapy (PT/OT/Speech/Resp) Filed: 02/19/2018 3:20 PM Note Text: Physical Therapy Evaluation SERVICE DATE: 02/19/2018 SERVICE TIME: 1420 to 1455 ROOM: [place] [address] Present on Admission: - NSTEMI (non-ST elevated myocardial infarction) ([facility]) s/p CABG - 4 vessel 02/18 Recommended Discharge Disposition: Home Recommended Discharge Disposition Comments: providing patient able to achieve goals Anticipated Discharge Needs: Family Training;Supervision at Home;Equipment Supervision at Home due to: (acuity) Recommended Discharge Equipment: No equipment needs anticipated PT Recommendations to Nursing: Ambulate with device;In halls;OOB for Meals;With assist of 1 person (per CVICU protocol) Device: (cart) PT 6 Clicks Score: 16 Precautions/Activity Restrictions: Sternal;Lines/Tubes/Drains;Cardiac;Weight Bearing Restrictions Precaution/Activity Restriction Comments: multiple lines, tele, CT x 3, vest Extremity With Weight Bearing Restricted: Left Upper Extremity;Right Upper Extremity Left Upper Extremity Weight Bearing Status: (limit d/t sternal precautions) Right Upper Extremity Weight Bearing Status: (limit d/t sternal precautions) ASSESSMENT : Patient presents with 3 or more personal factors (sex,age, coping styles, social background, education, overall behavior patterns that may influence how disability is experienced) and/or comorbidities that impact current function and ability to progress through a plan of care including: impaired functional transfers, sternal precautions, decreased ambulation distance and endurance, muscle weakness, pain. Upon examination of body systems (cardiovascular/pulm, integumentary, musculoskeletal, neuromuscular, and communication/affect/cognition/language/learning style) physical therapy will be addressing 3 or more elements (body structures and functions, activity limitation, and/or participation) including: functional mobility, safety, endurance, balance strength, and ambulation. The patient's clinical presentation is Evolving (fluctuation in pain and variable response to activty/prior treatment) requiring Moderate complexity clinical decision making. Patient Disposition at Start of Session: OOB in Chair (reclined) Patient Disposition at End of Session: OOB in Chair;Call Sen in Reach (family present) Tolerance Limited By Fatigue;Pain Physical Therapy Problem List: Pain;Impaired Self Care;Decreased Activity Tolerance;Decreased Strength;Functional Mobility Impairment;Balance Impaired Patient /Caregiver Goals: Go Home Goals for Plan of Care: Transfer supine to/from sit with: Modified Independent Transfer sit to/from stand with: Modified Independent Ambulate with: Modified Independent Distance: 150 Device: (none) Ambulate up and down steps with: Contact Guard Assistance Number of steps: 7 Device: Hand Held Assist;Rail Goal: Strength 4+/5 to improve independence with mobility Rehab Potential: Good PLAN: Treatment Frequency (times per week): 5 (1-5) Current admission Treatment Interventions: Education;Strengthening;Functional Mobility Training;Balance Training;Neuromuscular Re-education Plan of Care developed with: Patient;Family TREATMENT INTERVENTIONS: Therapy Diagnosis: Unsteadiness on feet;Abnormalities of gait and mobility-other;Muscle Weakness (generalized) Interventions Provided: Evaluation;Therapeutic Activity (27852);Therapeutic Exercise (56185) $ Evaluation-Moderate (30736) Billed Units: 1 unit Education provided to patient and family regarding role of physical therapy including high-level clinical decision for discharge planning, nursing education and activity in the hospital, and collaboration with the medical team in order to help patients achieve their optimal functional mobility and safety. Therapeutic Exercise (06495) Treatment Minutes: 5 0 units Skilled Intervention(s): Patient instructed in and performed joint range of motion/anti-embolic exercises B LE 10 reps AP, LAQ, GS,sitting marching. Encouraged to perform several times per day. Education Therapeutic Activity (20535) Treatment Minutes: 5 1 unit Skilled Intervention(s): Patient up in chair. Education and instructions provided for sternal precautions, use of vest, no UE Range of Motion beyond neutral shoulder extension, less than 90 deg FE, no pushing/pulling but OK to use UE to steady self with sit <-> stand transfers. Patient able to scoot forward and back in chair but required assistance to stand. Stood ~1 minute. Vital signs remained stable during assessment. Patient fatigued easily. Total Timed Code Treatment Minutes: 10 Total Treatment Time (minutes): 35 FUNCTIONAL G CODE: PT 6 Clicks Score: 16 (02/19/18 142) Mobility: Walking and Moving Around Current Status (G8978): CK (02/19/18 1420) Mobility: Walking and Moving Around Goal Status (G8979): CI (02/19/18 142) Based on clinical assessment and the score on the 6 Clicks Functional Assessment Tool, the G code and corresponding severity modifiers are documented above. SUBJECTIVE: Current Hospital Course: Chart reviewed; 62 year old male presented to ER dx with NSTEMI. s/p CABG - 4 vessel 02/18 Hgb 8.3* PAST MEDICAL HISTORY Diagnosis Date - Abnormal cardiovascular stress test - CAD (coronary artery disease) - Chest pain - Dyspnea - GERD (gastroesophageal reflux disease) - Hemorrhage of gastrointestinal tract, unspecified - Internal hemorrhoids without mention of complication - Other convulsions none since 1975 - Pancreatitis - Seizures (HCC) - Type 2 diabetes mellitus with hyperglycemia (HCC) PAST SURGICAL HISTORY Procedure Laterality Date - COLONOSCOP W/ OR W/O BRSH SPEC 04/15/08 - LAP CHOLECYSTECT/CHOLANGIOGRAPHY Reason for Physical Therapy Consult : safety assessment Relevant Past Medical History: CABG Patient Report: Identification verified x2, patient agreeable to therapy. Family present during session and supportive. Patient set up in chair with call light and phone in reach on bedside table. Instructed to use call light and wait for assist to get back to bed Home Environment Patient Lives With: Significant Other Assistance Available: 24 Hour Entry To Home: Stairs;With Rail Number Of Stairs Into Home: 7 Number Of Stairs To Bed/Bath: 0 Equipment Owned: Cane Prior Functional Level: Within Functional Limits (ambulated w/out AD, drives, shops, active) OBJECTIVE: Range Of Motion: Within Functional Limits (B LE, UE limited d/t sternal precautions) Strength: Within Functional Limits (B LE 4-/5) CURRENT FUNCTIONAL STATUS: Current Functional Mobility Assist Level Additional Information Rolling Supine to Sit Sit to Supine Scooting Stand By Assistance Sit to Stand Minimal Assistance Stand to Sit Minimal Assistance Bed to Chair Toilet/Commode Gait (stood only d/t just finished walk w/nursing) Stairs Curb Step Car Transfer Balance: Dynamic Sitting;Static Standing Dynamic Sitting Balance: Stand By Assistance (Good) Static Standing Balance: Contact Guard Assistance (Fair+) Please see discipline specific clinical documentation flowsheet for complete details for this therapy evaluation/treatment. SIGNATURE: Yudelka Diallo PT PATIENT NAME: Byron Ambriz DATE: February 19, 2018 TIME: 3:10 PM PAGER/CONTACT #: [phone] CONSULT PROG Observed: 02/19/2018 Status: COMPLETED Source: [place] 2:42 PM CL[facility] OTHER [facility]AMP[facility] REPOSITORY O ID: [id number] Author: Prosper Tyson Service: Endocrinology Author Type: Physician Type: Consult Progress Note Filed: 02/19/2018 2:44 PM Note Text: ENDOCRINOLOGY CONSULT PROGRESS NOTE SERVICE DATE: 02/19/2018 SERVICE TIME: 2:43 PM Subjective INTERVAL HPI: Doing well. Up in chair. Ate some lunch. Family at bedside. He is followed by Ana Delatorre CNP as outpatient. Current hospital medications: PHENYLephrine 10 mg in D5W 250 mL (NEOSYNEPHRINE) 0-100 mcg/min INTRAVENOUS CONTINUOUS dextrose 40 % 15 g 15 g ORAL PRN glucagon 1 mg injection (GLUCAGEN) 1 mg INTRAMUSCULAR PRN dextrose 50% in water 25 mL syringe 12.5 g INTRAVENOUS PRN insulin NPH human 8 Units injection (intermediate acting) (NovoLIN N, HumuLIN N) 8 Units SUBCUTANEOUS BID w MEALS insulin lispro pen (rapid acting) (HumaLOG KWIKPEN) SUBCUTANEOUS w MEALS insulin lispro pen (rapid acting) (HumaLOG KWIKPEN) SUBCUTANEOUS AT BEDTIME insulin lispro 3 Units pen (rapid acting) (HumaLOG KWIKPEN) 3 Units SUBCUTANEOUS ONCE insulin regular iv infusion 250 units in NaCl 0.9% 250 mL - [place] CARD SURG NOMOGRAM 0-12 Units/hr INTRAVENOUS CONTINUOUS insulin regular human iv bolus 10 Units 10 Units INTRAVENOUS PRN dextrose 50% in water 25 mL syringe 12.5 g INTRAVENOUS PRN dexmedetomidine 400 mcg in NaCl 0.9% 100 mL (PRECEDEX) 0.2- 0.7 mcg/kg/hr INTRAVENOUS CONTINUOUS aspirin 162 mg chewable tab(s) 162 mg ORAL DAILY potassium chloride iv piggyback 20 mEq in sterile water 100 mL 20 mEq INTRAVENOUS PRN magnesium sulfate in water 2 g in sterile water 50 ml 2 g INTRAVENOUS PRN(NO DISPENSE) acetaminophen 650 mg tab(s) (TYLENOL) 650 mg ORAL q 6 H PRN enoxaparin 40 mg injection (LOVENOX) 40 mg SUBCUTANEOUS DAILY NaCl 0.9% iv infusion 50 mL/hr INTRAVENOUS CONTINUOUS albumin (5%) 12.5 g infusion 12.5 g INTRAVENOUS PRN albuterol 2.5 mg /3 mL (0.083 %) 2.5 mg (PROVENTIL) 2.5 mg INHALATION q 2 H PRN ceFAZolin iv piggyback 2 g in D5W (iso-osmotic) 100 mL (ANCEF) 2 g INTRAVENOUS q 6 HR midazolam (PF) 2 mg injection (VERSED) 2 mg INTRAVENOUS q 6 H PRN oxyCODONE-acetaminophen 5-325 mg 1-2 tablet (PERCOCET) 1-2 tablet ORAL q 4 H PRN morphine 2-4 mg injection 2-4 mg INTRAVENOUS q 1 H PRN nitroglycerin 50 mg in D5W 250 mL 5-200 mcg/min INTRAVENOUS CONTINUOUS phenytoin ER 100 mg cap(s) (DILANTIN) 100 mg ORAL DAILY atorvastatin 80 mg tab(s) (LIPITOR) 80 mg ORAL AT BEDTIME Objective PHYSICAL EXAM: GENERAL: Alert, no distress, cooperative BP 95/61 Pulse 68 Temp (Src) 97.5 (Temporal Artery) Resp 18 Ht 5' 6 (1.68m) Wt 164 lb 14.5 oz (74.8kg) SpO2 94% BMI 26.63 kg/(m2). DATA: Diagnostic tests reviewed for today's visit: Most recent labs Glucose (mg/dL) Date Value 02/19/2018 90 Potassium (mEq/L) Date Value 02/19/2018 3.0 Sodium (mEq/L) Date Value 02/19/2018 143 Chloride (mEq/L) Date Value 02/19/2018 113 CO2 (mEq/L) Date Value 02/19/2018 24 Creatinine (mg/dL) Date Value 02/19/2018 0.82 BUN (mg/dL) Date Value 02/19/2018 12 Anion Gap (no units) Date Value 02/19/2018 9 Calcium (mg/dL) Date Value 02/19/2018 7.3 Hemoglobin A1C Date Value Ref Range Status 02/16/2018 6.5 (H) 4.2 - 6.3 % Final Comment: Method is National Glycohemoglobin Standardization Program (NGSP) compliant. Assessment/Plan Active Problems: Diabetes Mellitus Will convert to SQ insulin 8N bid and sliding scale Humalog. Discussed plan with patient, family and nursing. SIGNATURE: Prosper Tyson MD PATIENT NAME: Byron Ambriz DATE: February 19, 2018 TIME: 2:43 PM PAGER: [phone] POTASSIUM BLOOD Collected: 02/19/2018 Status: F Source: [facility] 2:25 PM HEALTH SYSTEM REPOSITORY TYPE CODE TESTS RESULT OUT OF REFERENCE UNITS RANGE LAB K(LOINC) 3.5-5.1 mEq/L Potassium Blood 3.8 Performed By: #### K #### [facility] [address] [place], [place] [address] GLUCOSE METER Collected: 02/19/2018 Status: F Source: [facility] 2:22 PM HEALTH SYSTEM REPOSITORY TYPE CODE TESTS RESULT OUT OF REFERENCE UNITS RANGE LAB GLUBL(LOINC 70-99 mg/dL ) Glucose Meter 94 Result Comment: RN NOTIFIED Performed By: #### GLMET #### [facility] [address] [place], [place] [address] PROGRESS Observed: 02/19/2018 Status: COMPLETED Source: [place] 1:39 PM CLINIC OTHER CAMPUS REPOSITORY HNO ID: [id number] Author: Talib Esposito Service: Clinical Cardiology Author Type: Physician Type: Progress Notes Filed: 02/19/2018 1:41 PM Note Text: PROGRESS NOTE CARDIOLOGY SERVICE SUBJECTIVE Subjective INTERVAL HPI: Feels well. On a small dose of Phenylephrine. Stable . Denies chest pain/dyspnea. In NSR. Objective PHYSICAL EXAM: Body mass index is 26.62 kg/m?. O2 Therapy: Nasal Cannula No Data Recorded BP 95/61 Pulse 66 Temp 36.4 ?C (97.5 ?F) (Temporal Artery) Resp 19 Ht 5' 6 (1.676 m) Wt 164 lb 14.5 oz (74.8 kg) SpO2 97% BMI 26.62 kg/m? Eyes: No subconjunctival hemorrhage Skin: No rash, bruising Neck: no jugular venous distention, no carotid bruits. Lungs: Clear to auscultation bilaterally, no wheezing or rhonchi. Heart: S1, S2 normal, no murmur Extremities: No peripheral edema MEDICATIONS: Current hospital medications: PHENYLephrine 10 mg in D5W 250 mL (NEOSYNEPHRINE) 0-100 mcg/min INTRAVENOUS CONTINUOUS insulin regular iv infusion 250 units in NaCl 0.9% 250 mL - AK CARD SURG NOMOGRAM 0-12 Units/hr INTRAVENOUS CONTINUOUS insulin regular human iv bolus 10 Units 10 Units INTRAVENOUS PRN dextrose 50% in water 25 mL syringe 12.5 g INTRAVENOUS PRN dexmedetomidine 400 mcg in NaCl 0.9% 100 mL (PRECEDEX) 0.2- 0.7 mcg/kg/hr INTRAVENOUS CONTINUOUS aspirin 162 mg chewable tab(s) 162 mg ORAL DAILY potassium chloride iv piggyback 20 mEq in sterile water 100 mL 20 mEq INTRAVENOUS PRN magnesium sulfate in water 2 g in sterile water 50 ml 2 g INTRAVENOUS PRN(NO DISPENSE) acetaminophen 650 mg tab(s) (TYLENOL) 650 mg ORAL q 6 H PRN enoxaparin 40 mg injection (LOVENOX) 40 mg SUBCUTANEOUS DAILY NaCl 0.9% iv infusion 50 mL/hr INTRAVENOUS CONTINUOUS albumin (5%) 12.5 g infusion 12.5 g INTRAVENOUS PRN albuterol 2.5 mg /3 mL (0.083 %) 2.5 mg (PROVENTIL) 2.5 mg INHALATION q 2 H PRN ceFAZolin iv piggyback 2 g in D5W (iso-osmotic) 100 mL (ANCEF) 2 g INTRAVENOUS q 6 HR midazolam (PF) 2 mg injection (VERSED) 2 mg INTRAVENOUS q 6 H PRN oxyCODONE-acetaminophen 5-325 mg 1-2 tablet (PERCOCET) 1-2 tablet ORAL q 4 H PRN morphine 2-4 mg injection 2-4 mg INTRAVENOUS q 1 H PRN nitroglycerin 50 mg in D5W 250 mL 5-200 mcg/min INTRAVENOUS CONTINUOUS phenytoin ER 100 mg cap(s) (DILANTIN) 100 mg ORAL DAILY atorvastatin 80 mg tab(s) (LIPITOR) 80 mg ORAL AT BEDTIME DATA: Past 72 Hour Labs: Recent Labs 02/19/18 0410 02/18/18 1520 02/16/18 2230 02/16/18 1700 TROPI -- -- -- 12.400* 14.800* WBC 3.49* 6.62 < > -- 9.13* RBC 2.65* 3.67* < > -- 4.59* HB 8.3* 11.4* < > -- 14.2 HCT 24.4* 32.7* < > -- 41.2 MCV 92.1 89.1 < > -- 89.8 MCH 31.3 31.1 < > -- 30.9 MCHC 34.0 34.9 < > -- 34.5 PLT 91* 102* < > -- 179 MPV 10.0 9.8 < > -- 10.3 GLUC 90 117* < > -- 116* BUN 12 9 < > -- 7 CREAT 0.82 0.60* < > -- 0.57* NA 143 144 < > -- 141 K 3.0* 3.8 < > -- 3.3* CHLOR 113* 116* < > -- 107 CO2 24 25 < > -- 29 TPROT -- -- -- -- 6.6 ALB -- -- -- -- 3.9 CA 7.3* 7.4* < > -- 8.9 ALKPHOS -- -- -- -- 69 TBILI -- -- -- -- 0.4 AST -- -- -- -- 83* ALT -- -- -- -- 30 PTSEC -- 10.9 -- -- 10.6 APTT -- 47.3* < > 46.0* 57.4* INR -- 1.03 -- -- 1.00 MG 2.1 2.5 -- -- 1.9 < > = values in this interval not displayed. Last Lab Drawn: Triglyceride 78 02/17/2018 HDL Cholesterol 48 02/17/2018 LDL Calculated 55 02/17/2018 Cholesterol, Total 119 02/17/2018 Assessment/Plan Active Problems: NSTEMI (non-ST elevated myocardial infarction) (HCC) POA: Yes Assessment AND Plan: 2/2 multivessel CAD. SP CABG x 4 (morales-lad; elise-diag; svg-RI; svg-OM) Dr Chappell 02/18/18. ASA, Liptor. Beta blockers once off Neosynephrine, and SBP>110 mm Hg S/P CABG x 4 POA: No Assessment AND Plan: SP CABG x 4 (morales-lad; elise-diag; svg-RI; svg-OM). Medical therapy as outlined above. Chest tubes still in place. ASA, Lipitor Resolved Problems: * No resolved hospital problems. * SIGNATURE: Talib Esposito MD PATIENT NAME: Byron Ambriz PAGER/CONTACT #: [phone] ALLIED HEALTH Observed: 02/19/2018 Status: COMPLETED Source: [place] 1:25 PM CLINIC OTHER CAMPUS REPOSITORY HNO ID: [id number] Author: Latesha Alex Office Coord Service: (none) Author Type: (none) Type: Allied Health Filed: 02/19/2018 1:26 PM Note Text: MANAGER HOTEL NOTE SERVICE DATE: 02/19/2018 SERVICE TIME: 1:25 PM Referral: Home Care referral received by: GLADYS Will continue to follow for physician orders SIGNATURE: Latesha Alex Office Coord PATIENT NAME: Byron Ambriz DATE: February 19, 2018 TIME: 1:25 PM 12 LEAD ELECTROCARDIOGRAM Observed: 02/19/2018 Status: F Source: [place] 1:07 PM [facility] [place], [place] REPOSITORY [facility] Cardiovascular Services [address] [place] [address] 12 Lead EKG 02/16/18 1044 MR#: [id number] Acct: [id number] Name: BYRON AMBRIZ Rep #: [id number] : 1955 62 From: Bernardo Louis MD Attending Dr: Status: DEP ER Ordering Dr: Carson Flores MD Date: 02/16/18 Location: ED Sex: M C Admitted: Test Reason : CHEST PAIN Blood Pressure : / mmHG Vent. Rate : 069 BPM Atrial Rate : 069 BPM P-R Int : 178 ms QRS Dur : 096 ms QT Int : 408 ms P-R-T Axes : 028 -09 038 degrees QTc Int : 437 ms Normal sinus rhythm Nonspecific ST and T wave abnormality Abnormal ECG Confirmed by MISSY ELI, BERNARDO ([id number]), editor greeting card MARYAM ARIAS ([id number]) on 02/19/2018 1:07:27 PM Referred By: SJ Confirmed By:BERNARDO LOUIS MD 02/19/18 1307 Date Bernardo Louis MD CC: MD Nba Flores; Libby Arias MD Signed 12 LEAD ELECTROCARDIOGRAM Observed: 02/19/2018 Status: F Source: [place] 1:07 PM [facility] [place], [place] REPOSITORY [facility] Cardiovascular Services [address] [facility] [place] [address] 12 Lead EKG 02/16/18 1159 MR#: [id number] Acct: [id number] Name: BYRON AMBRIZ Rep #: [id number] : 1955 62 From: Bernardo Louis MD Attending Dr: Status: DEP ER Ordering Dr: Carson Flores MD Date: 02/16/18 Location: ED Sex: M C Admitted: Test Reason : REPEAT Blood Pressure : / mmHG Vent. Rate : 063 BPM Atrial Rate : 063 BPM P-R Int : 188 ms QRS Dur : 094 ms QT Int : 420 ms P-R-T Axes : 045 -09 065 degrees QTc Int : 429 ms Poor data quality, interpretation may be adversely affected Normal sinus rhythm Septal infarct , age undetermined Abnormal ECG Confirmed by BERNARDO LOUIS MD ([id number]), editor greeting card MARYAM ARIAS ([id number]) on 02/19/2018 1:07:43 PM Referred By: SJ Confirmed By:BERNARDO LOUIS MD 02/19/18 1307 Date Bernardo Louis MD CC: MD Nba Merlosyerosa; Libby Arias MD Signed CASE MGT INIT Observed: 02/19/2018 Status: COMPLETED Source: [facility] 12:42 PM CLINIC OTHER CAMPUS REPOSITORY HNO ID: [id number] Author: Karley (Rn) MINDY Hernandez Service: (none) Author Type: Registered Nurse Type: Care Mgt Initial Assessment Filed: 02/19/2018 12:47 PM Note Text: CARE MANAGEMENT: ASSESSMENT AND DISCHARGE PLAN SERVICE DATE: 02/19/2018 SERVICE TIME: 12:42 PM PRIMARY CARE PHYSICIAN: Libby Arias MD ADMISSION STATUS: Inpatient 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 No Advance Directive: NO, declined info Health Literacy: 1. How often do you need to have someone help you when you read instructions, pamphlets, or other written material from your doctor or pharmacy? Never - 1 2. How confident are you filling out medical forms by yourself? Extremely - 1 If Patient scores > 3 on either question, the following interventions were put into place: Patient did not score > 3 FUNCTIONAL AND COGNITIVE/BEHAVIORAL PRIOR TO ADMISSION: Baseline Mental Status: Alert AND Oriented, Person, Place , Time and Situation Functional Status: Independent Does Patient Currently Receive Any Community Services or Home Care? None Equipment Prior to Admission: Glucometer Has the Patient Been in a Long Term Facility in the Past 30 days? No SOCIAL: Living Arrangement: Home, Home with parent/guardian Lives With: Spouse, Son and Daughter Financial Resources: Retired Primary Contact: Extended Emergency Contact Information Primary Emergency Contact: Malini Ambriz [address]: [address] [place] [address] Relation: Spouse Supportive: Yes Other Important Patient Contacts: None Caregiver Assessment: Caregiver is ready, willing and able to meet the patient's needs as recommended by the inter-professional team? Yes Patient's transition needs and plan for meeting these needs: home with 30/04 x1 week, [facility] Does the patient have an acute stroke diagnosis, or has the patient had a stroke during this admission? No Medication Adherence: I am convinced of the importance of my prescription medication: Agree completely - 0 I worry that my prescription medication will do more harm than good to me Disagree completely - 0 I feel financially burdened by my [id number] expenses for my prescription medication: Disagree completely - 0 Patient is categorized as low risk < 2 Are you interested in bedside delivery of your medications? No Food Concerns: In the Last Month, Have You had Trouble Getting Food? No trouble getting food During the Last Month, Have You Worried Whether Your Food Would Run Out Before You Had Enough Money to Buy More? No Is the Patient Psychosocially Complex? 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 Plan is to return home with family who will be avail 30/04, Agreeable to [facility], choice list provided. SIGNATURE: Karley Hernandez RN PATIENT NAME: Byron Ambriz DATE: February 19, 2018 TIME: 12:42 PM PAGER/CONTACT #: [phone] GLUCOSE METER Collected: 02/19/2018 Status: F Source: [facility] 12:37 PM HEALTH SYSTEM REPOSITORY TYPE CODE TESTS RESULT OUT OF REFERENCE UNITS RANGE LAB GLUBL(LOINC 70-99 mg/dL ) High Glucose Meter 123 Result Comment: MINDY NOTIFIED Performed By: #### GLMET #### [address] [address] GLUCOSE METER Collected: 02/19/2018 Status: F Source: [facility] 11:20 AM HEALTH SYSTEM REPOSITORY TYPE CODE TESTS RESULT OUT OF REFERENCE UNITS RANGE LAB GLUBL(LOINC 70-99 mg/dL ) High Glucose Meter 180 Result Comment: RN NOTIFIED Performed By: #### GLMET #### [facility] [address], [place] [address] THERAPY NT Observed: 02/19/2018 Status: COMPLETED Source: [place] 11:13 AM [facility] REPOSITORY HNO ID: [id number] Author: Magui (Pt) Britney Service: Physical Therapy Author Type: Physical Therapist Type: Therapy (PT/OT/Speech/Resp) Filed: 02/19/2018 11:13 AM Note Text: PHYSICAL THERAPY MISSED VISIT SERVICE DATE: 02/19/2018 SERVICE TIME: 1108 to 1110 ROOM: [place] [address] Attempted Evaluation. Patient not seen due to Declined (Per RN, pt just amb for 1st time ~30 mins ago; pt must rest.). Will continue to follow and evaluate as pt agreeable and schedule permits. SIGNATURE: Magui Tan, PT PATIENT NAME: Byron Ambriz DATE: February 19, 2018 TIME: 11:13 AM PAGER/CONTACT #: [phone] GLUCOSE METER Collected: 02/19/2018 Status: F Source: [facility] 10:26 AM HEALTH SYSTEM REPOSITORY TYPE CODE TESTS RESULT OUT OF REFERENCE UNITS RANGE LAB GLUBL(LOINC 70-99 mg/dL ) High Glucose Meter 187 Result Comment: RN NOTIFIED Performed By: #### GLMET #### [place] [id number] PROGRESS Observed: 02/19/2018 Status: COMPLETED Source: [place] 8:32 AM [facility] REPOSITORY HNO ID: [id number] Author: Jose Ramirez Service: Pulmonary Disease Author Type: Physician Type: Progress Notes Filed: 02/19/2018 8:35 AM Note Text: SERVICE DATE: 02/19/2018 SERVICE TIME: 8:32 AM Admission Date: 02/16/2018 AGE: [age] year old LOS: 3 days REASON FOR ICU ADMISSION: S/P Surgery Objective Extubated 0xygen supplement in place Hemodynamically stable UO noted; adequate No significant bleeding noted meds reviewed Good analgesia provided/ analgesics available No delerium TRANSFUSIONS: PAST MEDICAL HISTORY Diagnosis Date - Abnormal cardiovascular stress test - CAD (coronary artery disease) - Chest pain - Dyspnea - GERD (gastroesophageal reflux disease) - Hemorrhage of gastrointestinal tract, unspecified - Internal hemorrhoids without mention of complication - Other convulsions none since 1975 - Pancreatitis - Seizures (HCC) - Type 2 diabetes mellitus with hyperglycemia (HCC) PAST SURGICAL HISTORY Procedure Laterality Date - COLONOSCOP W/ [facility] 04/15/08 - LAP CHOLECYSTECT/CHOLANGIOGRAPHY VITAL SIGNS (last 24hrs min/max): Temp Av.1 ?C (98.7 ?F) Min: 36 ?C (96.8 ?F) Max: 37.9 ?C (100.2 ?F) Pulse Av.2 Min: 62 Max: 100 Arterial BP 1 Min: 94/48 Max: 177/90 Cuff BP Min: 95/61 Max: 95/61 Pain Score: 2/10 Vital signs reviewed. BP 95/61 Pulse 62 Temp (Src) 99.3 (Weaver Thermistor) Resp 17 Ht 5' 6 (1.68m) Wt 164 lb 14.5 oz (74.8kg) SpO2 98% BMI 26.63 kg/(m2). Temp (24hrs), Av.1 ?C (98.7 ?F), Min:36 ?C (96.8 ?F), Max:37.9 ?C (100.2 ?F) NET FLUID BALANCE Intake/Output Summary (Last 24 hours) at 02/19/18 0832 Last data filed at 02/19/18 0800 Gross per 24 hour Intake 3970.7 ml Output 1761 ml Net 2209.7 ml MEDICATIONS Current Facility-Administered Medications: PHENYLephrine 10 mg in D5W 250 mL (NEOSYNEPHRINE) 0-100 mcg/min INTRAVENOUS CONTINUOUS insulin regular iv infusion 250 units in NaCl 0.9% 250 mL - AK CARD SURG NOMOGRAM 0-12 Units/hr INTRAVENOUS CONTINUOUS insulin regular human iv bolus 10 Units 10 Units INTRAVENOUS PRN dextrose 50% in water 25 mL syringe 12.5 g INTRAVENOUS PRN dexmedetomidine 400 mcg in NaCl 0.9% 100 mL (PRECEDEX) 0.2- 0.7 mcg/kg/hr INTRAVENOUS CONTINUOUS aspirin 162 mg chewable tab(s) 162 mg ORAL DAILY potassium chloride iv piggyback 20 mEq in sterile water 100 mL 20 mEq INTRAVENOUS PRN magnesium sulfate in water 2 g in sterile water 50 ml 2 g INTRAVENOUS PRN(NO DISPENSE) acetaminophen 650 mg tab(s) (TYLENOL) 650 mg ORAL q 6 H PRN enoxaparin 40 mg injection (LOVENOX) 40 mg SUBCUTANEOUS DAILY NaCl 0.9% iv infusion 50 mL/hr INTRAVENOUS CONTINUOUS albumin (5%) 12.5 g infusion 12.5 g INTRAVENOUS PRN albuterol 2.5 mg /3 mL (0.083 %) 2.5 mg (PROVENTIL) 2.5 mg INHALATION q 2 H PRN ceFAZolin iv piggyback 2 g in D5W (iso-osmotic) 100 mL (ANCEF) 2 g INTRAVENOUS q 6 HR midazolam (PF) 2 mg injection (VERSED) 2 mg INTRAVENOUS q 6 H PRN oxyCODONE-acetaminophen 5-325 mg 1-2 tablet (PERCOCET) 1-2 tablet ORAL q 4 H PRN morphine 2-4 mg injection 2-4 mg INTRAVENOUS q 1 H PRN nitroglycerin 50 mg in D5W 250 mL 5-200 mcg/min INTRAVENOUS CONTINUOUS phenytoin ER 100 mg cap(s) (DILANTIN) 100 mg ORAL DAILY atorvastatin 80 mg tab(s) (LIPITOR) 80 mg ORAL AT BEDTIME Lines, Drains, and Airways Line Peripheral 02/16/18 1100 Assessment Short Left Antecubital 20 Gauge 2 days Peripheral 02/16/18 1100 Assessment Short Right Wrist 22 Gauge 2 days Arterial Line 02/18/18 0900 Arterial Line Left Radial less than 1 day Central Line Quadruple Lumen 02/18/18 0915 Right Neck less than 1 day Peripheral 02/18/18 0855 Right Hand 18 Gauge less than 1 day Drain Chest Tube 02/18/18 1510 Assessment Mediastinal Tube #1 less than 1 day Chest Tube 02/18/18 1510 Assessment Pleural less than 1 day Chest Tube 02/18/18 1510 Assessment Pleural Tube #2 less than 1 day Indwelling Urinary Catheter 02/18/18 0905 Temperature Monitoring 16 Fr less than 1 day PHYSICAL EXAMINATION: VITAL SIGNS: As documented General appearance: Well-developed well-nourished. Skin: Normal turgor. Not pallorous. Not diaphoretic. No jaundice. sternotomy scars Eyes: Pupils equally reactive to light. Midline. No jaundice. Vision reasonable grossly. EOMI ENT: No palpable lymphadenopathy. Hearing intact. Normocephalic. no neck scar. No thyromegaly. Good dentition. No macroglossia. Supple neck. Heme/Lymph: No significant neck adenopathy. Negative JVD on mild incline supine Lungs: Clear to auscultation. Decent inspiratory capacity. No overt wheeze. No significant hyperinflation. No fibrotic rales. No pleural rub. No dyspnea at rest. No effusion Heart: Regular rate and rhythm. Normal heart tones. No significant murmur. No peripheral edema. Normal P2 . Good perfusion distally radial. Rub; pleural drainage ABD: Abdomen soft, non-tender. Bowel sounds normal. No masses, organomegaly. Musculoskeletal: Extremities normal. No deformities, no edema, or skin discoloration. Good capillary refill PSYCH: Alert. Responsive. Seems to comprehend reasonably well. Neuro: Nonfocal. Alert. Oriented. Speech intact. CN intact. Respiratory/Nursing Documentation: O2 Therapy: Nasal Cannula (02/19/18 0739) Invasive Ventilator Mode: Synchronized Intermittent Mandatory Ventilation;Pressure Support Ventilation (02/18/18 151) Set Ventilator Respiratory Rate (BPM): 12 (02/18/18 1510) Total Respiratory Rate (BPM): 22 (02/18/18 1510) Tidal Volume Set (mL): 550 (02/18/18 1510) Exhaled Tidal Volume (mL): 769 (02/18/18 1510) Minute Volume (L): 13.1 (02/18/18 1510) Peak Inspiratory Pressure (cm H2O): 17 (02/18/18 1510) PEEP/CPAP (cm H2O): 5 (02/18/18 1510) HEMODYNAMIC DATA: NUTRITION: SEDATION: DRIPS: PRESSORS: DATA: Diagnostic tests reviewed for today's visit: Most recent labs and imaging results REVIEWED. LABS: Recent Labs 02/19/18 0410 02/18/18 1520 02/16/18 2230 02/16/18 1700 TROPI -- -- -- 12.400* 14.800* WBC 3.49* 6.62 < > -- 9.13* RBC 2.65* 3.67* < > -- 4.59* HB 8.3* 11.4* < > -- 14.2 HCT 24.4* 32.7* < > -- 41.2 MCV 92.1 89.1 < > -- 89.8 PLT 91* 102* < > -- 179 GLUC 90 117* < > -- 116* BUN 12 9 < > -- 7 CREAT 0.82 0.60* < > -- 0.57* NA 143 144 < > -- 141 K 3.0* 3.8 < > -- 3.3* CHLOR 113* 116* < > -- 107 CO2 24 25 < > -- 29 TPROT -- -- -- -- 6.6 ALB -- -- -- -- 3.9 CA 7.3* 7.4* < > -- 8.9 ALKPHOS -- -- -- -- 69 TBILI -- -- -- -- 0.4 AST -- -- -- -- 83* ALT -- -- -- -- 30 PTSEC -- 10.9 -- -- 10.6 APTT -- 47.3* < > 46.0* 57.4* INR -- 1.03 -- -- 1.00 MG 2.1 2.5 -- -- 1.9 < > = values in this interval not displayed. ABG: Recent Labs 02/18/18 1525 02/18/18 1356 02/18/18 1330 PH 7.345* 7.365 7.340 PO2 137.6* 360.0* 40.0 PCO2 41.0 -- -- CULTURES: CXR FINDINGS: OTHER IMAGING: Assessment/Plan PROBLEMS: Patient Active Hospital Problem List: NSTEMI (non-ST elevated myocardial infarction) ([facility]) (02/16/2018) successful extubation Mild anemia, anticipated CRITICAL CARE PLAN: 1. Wean DEXmed and insulin 2. Low phenylephrine 20 mcg 3. Keep chest tubes 4. Usual postop care Patient Updated Yes Family Updated No Discussed with Staff Yes: RN, Time spent providing critical care services: 20 minutes excluding billable procedures. SIGNATURE: Jose Ramirez MD PATIENT NAME: Byron Ambriz DATE: February 19, 2018 TIME: 8:32 AM PROGRESS Observed: 02/19/2018 Status: COMPLETED Source: [place] 8:06 AM CLINIC OTHER CAMPUS REPOSITORY HNO ID: [id number] Author: Chapin Zamarripa Service: Cardiac Surgery Author Type: Resident Type: Progress Notes Filed: 02/19/2018 8:17 AM Note Text: Attestation signed by Ty Chappell at 02/19/2018 7:14 PM Attending Note I evaluated the patient and personally participated in the montanez components. I agree with the resident's findings and plan with the following revisions and/or additions: s/p cabg Doing well. Wean lloyd. DC arterial line. Mobilize. ASA/statin; hold beta radha Signature: Ty Chappell MD Date: 02/19/2018 Time: 7:14 PM CARDIOTHORACIC SURGERY POSTOP PROGRESS NOTE SERVICE DATE: 02/19/2018 SERVICE TIME: 8:06 AM Subjective S/P SURGERY: Procedure(s) (LRB): BYPASS GRAFT ARTERY CORONARY ON-PUMP USING VENOUS GRAFT(S) AND ARTERIAL GRAFT(S); TWO VENOUS GRAFTS (N/A) DATE OF SURGERY: 02/18/2018 POSTOP DAY #1 LOS: 3 INTERVAL EVENTS / PERTINENT ROS: Extubated. Lloyd weaned to off overnight. Had to be restarted at low dose this AM. Patient feels well. Moderate chest pain but tolerable. No SOB. Objective Admission Weight: 75.1 kg (165 lb 9.1 oz) BP 95/61 Pulse 66 Temp 36.9 ?C (98.4 ?F) (Temporal Artery) Resp 18 Ht 167.6 cm (5' 6) Wt 74.8 kg (164 lb 14.5 oz) SpO2 98% BMI 26.62 kg/m? Body surface area is 1.87 meters squared. Min/Max/Average Temperature AND Blood Pressure: Temp (24hrs), Av ?C (98.6 ?F), Min:36 ?C (96.8 ?F), Max:37.9 ?C (100.2 ?F) Systolic (24hrs), Av , Min:95 , Max:95 Diastolic (24hrs), Av, Min:61, Max:61 Intake/Output Summary (Last 24 hours) at 02/19/18 0806 Last data filed at 02/19/18 0700 Gross per 24 hour Intake 3948 ml Output 1666 ml Net 2282 ml TELEMETRY: normal sinus rhythm PHYSICAL EXAM: Gen - laying in bed, NAD, AANDOx3 HEENT - EOMI, mucus membranes moist, PEERL CV - HR and BP WNL on monitors. On Lloyd. Chest incision appears well. Resp - respirations unlabored. Chest tubes with total of 600 cc output. Abd - soft, non distended, non tender. EXT - JAIN, no edema. (+) SCDs Lines, Drains, and Airways Line Peripheral 02/16/18 1100 Assessment Short Left Antecubital 20 Gauge 2 days Peripheral 02/16/18 1100 Assessment Short Right Wrist 22 Gauge 2 days Arterial Line 02/18/18 0900 Arterial Line Left Radial less than 1 day Central Line Quadruple Lumen 02/18/18 0915 Right Neck less than 1 day Peripheral 02/18/18 0855 Right Hand 18 Gauge less than 1 day Drain Chest Tube 02/18/18 1510 Assessment Mediastinal Tube #1 less than 1 day Chest Tube 02/18/18 1510 Assessment Pleural less than 1 day Chest Tube 02/18/18 1510 Assessment Pleural Tube #2 less than 1 day Indwelling Urinary Catheter 02/18/18 0905 Temperature Monitoring 16 Fr less than 1 day DATA: Diagnostic tests reviewed for today's visit: Recent Labs 02/19/18 0410 02/18/18 1520 02/18/18 1356 02/18/18 0445 02/17/18 2120 02/17/18 1425 02/17/18 1300 02/16/18 1700 HBA1C -- -- -- -- -- -- -- -- -- 6.5* RBC 2.65* 3.67* -- -- 4.30* -- -- -- < > 4.59* WBC 3.49* 6.62 -- -- 5.17 -- -- -- < > 9.13* HB 8.3* 11.4* -- -- 13.2* -- -- -- < > 14.2 HCT 24.4* 32.7* 26* < > 38.0* -- -- -- < > 41.2 PLT 91* 102* -- -- 144 -- -- -- < > 179 INR -- 1.03 -- -- -- -- -- -- -- 1.00 APTT -- 47.3* -- -- -- 62.9* 42.9* -- < > 57.4* NA 143 144 142 < > 139 -- -- -- < > 141 K 3.0* 3.8 3.6 < > 3.7 -- -- -- < > 3.3* CHLOR 113* 116* -- -- 109* -- -- -- < > 107 CO2 24 25 -- -- 28 -- -- -- < > 29 BUN 12 9 -- -- 8 -- -- -- < > 7 CREAT 0.82 0.60* -- -- 0.62* -- -- -- < > 0.57* GLUC 90 117* -- -- 125* -- -- -- < > 116* CA 7.3* 7.4* -- -- 8.5 -- -- -- < > 8.9 MG 2.1 2.5 -- -- -- -- -- -- -- 1.9 TPROT -- -- -- -- -- -- -- -- -- 6.6 TBILI -- -- -- -- -- -- -- -- -- 0.4 ALKPHOS -- -- -- -- -- -- -- -- -- 69 ALT -- -- -- -- -- -- -- -- -- 30 AST -- -- -- -- -- -- -- -- -- 83* ANION 9 7* -- -- 6* -- -- -- < > 8 MRSA -- -- -- -- -- -- -- No MRSA detected. -- -- < > = values in this interval not displayed. Recent Labs 02/18/18 1525 02/18/18 1356 02/18/18 1330 02/18/18 1329 PH 7.345* 7.365 7.340 7.355 PCO2 41.0 -- -- -- PO2 137.6* 360.0* 40.0 318.0* BE -3.6 -- -- -- HCO3 -- 23.1 23.2 24.4 Recent Labs 02/17/18 1530 UPH 7.0 SPGR 1.007 UGLUC NEGATIVE UBILI NEGATIVE UKET NEGATIVE UPROT NEGATIVE Assessment/Plan CABG - 4 vessel 02/18. - on ASA, statin. - Still on a little Lloyd this AM. Will likely start beta radha when BP stabilizes off support. - Pain control. - perioperative antibiotics. - encourage ambulation. anticipated Post-Op hypoxia: - Extubated yesterday. - on NC - wean as able. - pain control. - IS/deep breathing. - Chest x-ray appears clear this AM. - Continue chest tubes today. Anticipated post-op anemia: - Hgb 8.3 this AM. Vitals are stable. - No indication for transfusion. - Daily CBCs. FEN: - currently NPO. Will start diet today. - HypoK and HypoMg - replete IV today per nomogram. : - weaver in place post-op. Will discontinue today. - CXR appears well, but is net positive fluid. No diuretic today. DM: - insulin drip. - appreciate endo recs. 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 DVT ppx: - lovenox and SCDs - will keep in CVICU today. Chapin Zamarripa MD General Surgery, PGY-2 Pager - [phone] 02/19/18 8:17 AM GLUCOSE METER Collected: 02/19/2018 Status: F Source: [facility] 7:58 AM HEALTH SYSTEM REPOSITORY TYPE CODE TESTS RESULT OUT OF REFERENCE UNITS RANGE LAB GLUBL(LOINC 70-99 mg/dL ) Glucose Meter 80 Result Comment: RN NOTIFIED Performed By: #### GLMET #### [facility] [address] [address] CHEST 1 VIEW Observed: 02/19/2018 Status: F Source: [facility] 6:10 AM HEALTH SYSTEM REPOSITORY Performed at [facility] APPROVED BY: Rajendra Malik MD EXAMINATION: CHEST RADIOGRAPH (SINGLE VIEW AP PORTABLE UPRIGHT) Clinical History: Status post coronary artery bypass graft surgery. M: [id number] Comparison: AP chest 02/18/2018 15:15. RESULT: Lines, tubes, and devices: There has been removal of the endotracheal and orogastric tube since the prior exam. Right internal jugular central venous catheter and bilateral chest tubes appear stable. There is a midline presumed mediastinal tube that is not clearly visualized on the prior exam. Median sternotomy wires again noted. Lungs and pleura: No pneumothorax. No significant pleural effusion. Probable minimal subsegmental atelectasis in both lung bases. Cardiomediastinal silhouette: Cardiac silhouette size appears minimally enlarged but unchanged. Other: IMPRESSION: Interval removal of endotracheal and orogastric tubes. A midline mediastinal tube is now visualized. Otherwise stable life support devices. Minimal subsegmental atelectasis in the lung bases. GLUCOSE METER Collected: 02/19/2018 Status: F Source: [facility] 4:12 AM HEALTH SYSTEM REPOSITORY TYPE CODE TESTS RESULT OUT OF REFERENCE UNITS RANGE LAB GLUBL(LOINC 70-99 mg/dL ) Glucose Meter 95 Result Comment: RN NOTIFIED Performed By: #### GLMET #### [place] [address] HEMOGRAM Collected: 02/19/2018 Status: F Source: [facility] 4:10 AM HEALTH SYSTEM REPOSITORY TYPE CODE TESTS RESULT OUT OF REFERENCE UNITS RANGE LAB WBC(LOINC) 4.23-9.07 thou/cmm Low WBC 3.49 LAB RBC(LOINC) 4.63-6.08 mil/cmm Low RBC 2.65 LAB HGB(LOINC) 13.7-17.5 g/dL Low Hgb 8.3 LAB HCT(LOINC) 40.1-51.0 % Low Hct 24.4 LAB MCV(LOINC) 83.2-95.6 fl MCV 92.1 LAB MCH(LOINC) 25.7-32.2 pg MCH 31.3 LAB MCHC(LOINC) 32.3-36.5 % MCHC 34.0 LAB RDW(LOINC) 11.6-14.4 % RDW 12.2 LAB RDWSD(LOINC 36.1-45.8 fl ) RDW SD 40.9 LAB PLT(LOINC) 141-365 thou/cmm Low Platelet 91 LAB MPV(LOINC) 8.7-12.0 fl MPV 10.0 Performed By: #### CBC1 #### [facility] [address] [address] BASIC PANEL Collected: 02/19/2018 Status: F Source: [facility] 4:10 AM HEALTH SYSTEM REPOSITORY TYPE CODE TESTS RESULT OUT OF REFERENCE UNITS RANGE LAB NA(LOINC) 136-145 mEq/L Sodium Blood 143 LAB K(LOINC) 3.5-5.1 mEq/L Low Potassium Blood 3.0 LAB CL(LOINC) 98-107 mEq/L Chloride High Blood 113 LAB CO2(LOINC) 21-32 mEq/L CO2 Blood 24 LAB GLU(LOINC) 70-99 mg/dL Glucose Blood 90 LAB BUN(LOINC) 7-18 mg/dL BUN Blood 12 LAB CREA(LOINC 0.67-1.17 mg/dL ) Creatinine Blood 0.82 LAB CA(LOINC) 8.5-10.1 mg/dL Low Calcium Blood 7.3 LAB ANGAP(LOIN 8-16 C) Anion Gap 9 Performed By: #### P8 #### [place] [address] MAGNESIUM BLOOD Collected: 02/19/2018 Status: F Source: [facility] 4:10 AM HEALTH SYSTEM REPOSITORY TYPE CODE TESTS RESULT OUT OF REFERENCE UNITS RANGE LAB MAG(LOINC) 1.6-2.6 mg/dL Magnesium Blood 2.1 Performed By: #### MAG #### [place] [address] MDRD GFR Collected: 02/19/2018 Status: F Source: [facility] 4:10 AM HEALTH SYSTEM REPOSITORY TYPE CODE TESTS RESULT OUT OF RANGE REFERENCE UNITS LAB GFRFN(LOINC >60mL/min/1.73m ) 2 eGFR >60 Result Comment: If the patient is , multiply the result by 1.210. Performed By: #### GFR #### [place] [address] GLUCOSE METER Collected: 02/19/2018 Status: F Source: [facility] 2:21 AM HEALTH SYSTEM REPOSITORY TYPE CODE TESTS RESULT OUT OF REFERENCE UNITS RANGE LAB GLUBL(LOINC 70-99 mg/dL ) Glucose Meter 96 Result Comment: RN NOTIFIED Performed By: #### GLMET #### [facility] [address] [place], [place] [address] GLUCOSE METER Collected: 02/19/2018 Status: F Source: [facility] 12:18 AM HEALTH SYSTEM REPOSITORY TYPE CODE TESTS RESULT OUT OF REFERENCE UNITS RANGE LAB GLUBL(LOINC 70-99 mg/dL ) High Glucose Meter 101 Result Comment: RN NOTIFIED Performed By: #### GLMET #### [facility] [address] [id number] GLUCOSE METER Collected: 02/18/2018 Status: F Source: [facility] 9:57 PM HEALTH SYSTEM REPOSITORY TYPE CODE TESTS RESULT OUT OF REFERENCE UNITS RANGE LAB GLUBL(LOINC 70-99 mg/dL ) Glucose Meter 98 Result Comment: RN NOTIFIED Performed By: #### GLMET #### [facility] [address] [place], [place] [address] ANES POST Observed: 02/18/2018 Status: COMPLETED Source: [place] 8:51 PM CLINIC OTHER CAMPUS REPOSITORY O ID: [id number] Author: Tobias Flores Service: Anesthesiology Author Type: Physician Type: Anesthesia PostOp Filed: 02/18/2018 8:52 PM Note Text: POST ANESTHESIA EVALUATION NOTE SERVICE DATE: 02/18/2018 SERVICE TIME: 8:51 PM : 1955 Vitals: 02/18/18 0300 02/18/18 0700 02/18/18 1500 02/18/18 1510 Temp: 37.1 ?C (98.8 ?F) 36.5 ?C (97.7 ?F) 36 ?C (96.8 ?F) 36.8 ?C (98.2 ?F) 02/18/18 1745 02/18/18 1800 02/18/18 1900 02/18/181999 Arterial BP 1: 107/59 117/60 118/57 116/59 BP: 02/18/18 1745 02/18/18 1800 02/18/18 1900 02/18/181999 Pulse: 79 86 89 100 02/18/18 0600 02/18/18 0700 02/18/18 0800 02/18/18 1510 Resp: 14 16 19 22 02/18/18 1745 02/18/18 1800 02/18/18 1900 02/18/181999 SpO2: 98% 99% 98% 98% Validated Vital Signs: Yes POST ANES STATUS: PACU/ICU Patient Condition: Stable Neurological Status: Sleepy but arousable. Pulmonary Status: Breathing comfortably on supplemental oxygen. Airway Control: Returned to baseline unsupported. Cardiovascular Status: Stable Pain: Adequately controlled Postoperative Nausea/Vomiting: No significant post operative nausea or vomiting Postoperative Hydration Status: Adequate. Anesthetic Complications: None Recommendation: Continue current plan of care and Further care per PACU/ICU/Floor team Other Remarks: SIGNATURE: Tobias Flores MD PATIENT NAME: Byron Ambriz DATE: February 18, 2018 TIME: 8:51 PM PAGER/CONTACT #: GLUCOSE METER Collected: 02/18/2018 Status: F Source: [facility] 8:00 PM HEALTH SYSTEM REPOSITORY TYPE CODE TESTS RESULT OUT OF REFERENCE UNITS RANGE LAB GLUBL(LOINC 70-99 mg/dL ) Glucose Meter 82 Result Comment: RN NOTIFIED Performed By: #### GLMET #### [place] [address] GLUCOSE METER Collected: 02/18/2018 Status: F Source: [facility] 6:00 PM HEALTH SYSTEM REPOSITORY TYPE CODE TESTS RESULT OUT OF REFERENCE UNITS RANGE LAB GLUBL(LOINC 70-99 mg/dL ) High Glucose Meter 102 Result Comment: RN NOTIFIED Performed By: #### GLMET #### [place] [address] GLUCOSE METER Collected: 02/18/2018 Status: F Source: [facility] 5:03 PM HEALTH SYSTEM REPOSITORY TYPE CODE TESTS RESULT OUT OF REFERENCE UNITS RANGE LAB GLUBL(LOINC 70-99 mg/dL ) High Glucose Meter 115 Result Comment: RN NOTIFIED Performed By: #### GLMET #### [facility] [address] [address] GLUCOSE METER Collected: 02/18/2018 Status: F Source: [facility] 4:14 PM HEALTH SYSTEM REPOSITORY TYPE CODE TESTS RESULT OUT OF REFERENCE UNITS RANGE LAB GLUBL(LOINC 70-99 mg/dL ) High Glucose Meter 124 Result Comment: RN NOTIFIED Performed By: #### GLMET #### [facility] [address] [place], [place] [address] CONSULT PROG Observed: 02/18/2018 Status: COMPLETED Source: [place] 3:54 PM CLINIC OTHER CAMPUS REPOSITORY HNO ID: [id number] Author: Jose Ramirez Service: Pulmonary Disease Author Type: Physician Type: Consult Progress Note Filed: 02/18/2018 4:01 PM Note Text: SERVICE DATE: 02/18/2018 SERVICE TIME: 3:54 PM Admission Date: 02/16/2018 AGE: [age] year old LOS: 2 days REASON FOR ICU ADMISSION: S/P Surgery Objective Uncomplicated cabg sats good No pressors No rbc tx No bleeding per rn Usual lines PSV 10 early EBL: SEE OP NOTE 250 LV FXN: GOOD PROCEDURE:PROCEDURES AND ANESTHESIA: Procedure(s) and Anesthesia Type: * BYPASS GRAFT ARTERY CORONARY ON-PUMP USING VENOUS GRAFT(S) AND ARTERIAL GRAFT(S); TWO VENOUS GRAFTS - General Great Saphenous Vein, Left , Percutaneous endoscopic Internal Thoracic Artery, Bilateral, Open CABG x 4 (morales-lad; elise-diag; svg-RI; svg-OM; evh) ? ANESTHESIA: General ? BRIEF FINDINGS: normal LV function pre and post CABG; TRANSFUSIONS: 0 PAST MEDICAL HISTORY Diagnosis Date - Abnormal cardiovascular stress test - CAD (coronary artery disease) - Chest pain - Dyspnea - GERD (gastroesophageal reflux disease) - Hemorrhage of gastrointestinal tract, unspecified - Internal hemorrhoids without mention of complication - Other convulsions none since 1975 - Pancreatitis - Seizures (HCC) - Type 2 diabetes mellitus with hyperglycemia (HCC) PAST SURGICAL HISTORY Procedure Laterality Date - COLONOSCOP W/ OR W/O BRSH SPEC 04/15/08 - LAP CHOLECYSTECT/CHOLANGIOGRAPHY Social History Marital status: Spouse name: Years of education: Number of children: Social History Main Topics Smoking status: Never Smoker Smokeless tobacco: Former User Types: Chew Alcohol use: Yes Comment: 1x/month beer Drug use: No VITAL SIGNS (last 24hrs min/max): Temp Av.6 ?C (97.9 ?F) Min: 36 ?C (96.8 ?F) Max: 37.1 ?C (98.8 ?F) Pulse Av.5 Min: 62 Max: 83 No Data Recorded Cuff BP Min: 118/74 Max: 149/83 Pain Score: 0/10 Vital signs reviewed. BP 149/83 Pulse 75 Temp (Src) 96.8 (Tympanic) Resp 22 Ht 5' 6 (1.68m) Wt 159 lb 2.8 oz (72.2kg) SpO2 99% BMI 25.70 kg/(m2). Temp (24hrs), Av.6 ?C (97.9 ?F), Min:36 ?C (96.8 ?F), Max:37.1 ?C (98.8 ?F) NET FLUID BALANCE Intake/Output Summary (Last 24 hours) at 02/18/18 1554 Last data filed at 02/18/18 1545 Gross per 24 hour Intake 1436 ml Output 2840 ml Net -1404 ml MEDICATIONS Current Facility-Administered Medications: tranexamic acid iv piggyback 2 g in NaCl 0.9% [address] SURGERY 2 g OTHER ONCE insulin regular iv infusion 250 units in NaCl 0.9% 250 mL - AK CARD SURG NOMOGRAM 0-12 Units/hr INTRAVENOUS CONTINUOUS insulin regular human iv bolus 10 Units 10 Units INTRAVENOUS PRN dextrose 50% in water 25 mL syringe 12.5 g INTRAVENOUS PRN dexmedetomidine 400 mcg in NaCl 0.9% 100 mL (PRECEDEX) 0.2- 0.7 mcg/kg/hr INTRAVENOUS CONTINUOUS potassium chloride iv piggyback 20 mEq in sterile water 100 mL 20 mEq INTRAVENOUS PRN magnesium sulfate in water 2 g in sterile water 50 ml 2 g INTRAVENOUS PRN(NO DISPENSE) acetaminophen 650 mg tab(s) (TYLENOL) 650 mg ORAL q 6 H PRN enoxaparin 40 mg injection (LOVENOX) 40 mg SUBCUTANEOUS DAILY NaCl 0.9% iv infusion 50 mL/hr INTRAVENOUS CONTINUOUS albumin (5%) 12.5 g infusion 12.5 g INTRAVENOUS PRN albuterol 2.5 mg /3 mL (0.083 %) 2.5 mg (PROVENTIL) 2.5 mg INHALATION q 2 H PRN midazolam (PF) 2 mg injection (VERSED) 2 mg INTRAVENOUS q 6 H PRN oxyCODONE-acetaminophen 5-325 mg 1-2 tablet (PERCOCET) 1-2 tablet ORAL q 4 H PRN morphine 2-4 mg injection 2-4 mg INTRAVENOUS q 1 H PRN nitroglycerin 50 mg in D5W 250 mL 5-200 mcg/min INTRAVENOUS CONTINUOUS phenytoin ER 100 mg cap(s) (DILANTIN) 100 mg ORAL DAILY atorvastatin 80 mg tab(s) (LIPITOR) 80 mg ORAL AT BEDTIME Lines, Drains, and Airways Line Peripheral 02/16/18 1100 Assessment Short Left Antecubital 20 Gauge 2 days Peripheral 02/16/18 1100 Assessment Short Right Wrist 22 Gauge 2 days Arterial Line 02/18/18 0900 Arterial Line Left Radial less than 1 day Central Line Quadruple Lumen 02/18/18 0915 Right Neck less than 1 day Peripheral 02/18/18 0855 Right Hand 18 Gauge less than 1 day Drain Chest Tube 02/18/18 1510 Assessment Mediastinal Tube #1 less than 1 day Chest Tube 02/18/18 1510 Assessment Pleural less than 1 day Chest Tube 02/18/18 1510 Assessment Pleural Tube #2 less than 1 day Indwelling Urinary Catheter 02/18/18 0905 Temperature Monitoring 16 Fr less than 1 day PHYSICAL EXAMINATION: VITAL SIGNS: As documented General appearance: Well-developed well-nourished. mild overweight. . CVL. [place]. weaver Skin: Normal turgor. Not pallorous. Not diaphoretic. No jaundice. sternotomy scars Eyes: Pupils equally reactive to light. Midline. No jaundice. ENT: No palpable lymphadenopathy. Normocephalic. no neck scar. No thyromegaly. Good dentition. No macroglossia. Supple neck Heme/Lymph: No significant neck adenopathy. Negative JVD on mild incline supine Lungs: Clear to auscultation. Decent inspiratory capacity. No overt wheeze. No significant hyperinflation. No fibrotic rales. No pleural rub. No dyspnea at rest. No effusion Heart: Regular rate and rhythm. Normal heart tones. No significant murmur. No peripheral edema. Normal P2 . Good perfusion distally radial. CHEST tubes; rub. ABD: Abdomen soft, non-tender. Bowel sounds normal. No masses, organomegaly. Musculoskeletal: Extremities normal. No deformities, no edema, or skin discoloration. Good capillary refill Neuro: Nonfocal. LIMITED BUT No gross cerebellar dysfunction. CN intact. RASS 0 , min sedated Respiratory/Nursing Documentation: O2 Therapy: Ventilator (02/18/181509) Invasive Ventilator Mode: Synchronized Intermittent Mandatory Ventilation;Pressure Support Ventilation (05/14/18 1510) Set Ventilator Respiratory Rate (BPM): 12 (02/18/181509) Total Respiratory Rate (BPM): 22 (02/18/181509) Tidal Volume Set (mL): 550 (02/18/181509) Exhaled Tidal Volume (mL): 769 (02/18/181509) Minute Volume (L): 13.1 (02/18/181509) Peak Inspiratory Pressure (cm H2O): 17 (02/18/181509) PEEP/CPAP (cm H2O): 5 (02/18/181509) HEMODYNAMIC DATA: reviewed VENT: psv 05/12 WEANS: SEDATION: DEXMED 0.8 DRIPS: TXA, INSULIN PRESSORS: NONE CULTURES: CXR FINDINGS: GOOD POSTOP OTHER IMAGING: DATA: Diagnostic tests reviewed for today's visit: Most recent labs and imaging results REVIEWED. LABS: Recent Labs 02/18/18 1520 02/18/18 1356 02/18/18 0445 02/17/18 2120 02/16/18 2230 02/16/18 1700 TROPI -- -- -- -- -- -- 12.400* 14.800* WBC 6.62 -- -- 5.17 -- < > -- 9.13* RBC 3.67* -- -- 4.30* -- < > -- 4.59* HB 11.4* -- -- 13.2* -- < > -- 14.2 HCT 32.7* 26* < > 38.0* -- < > -- 41.2 MCV 89.1 -- -- 88.4 -- < > -- 89.8 PLT 102* -- -- 144 -- < > -- 179 GLUC -- -- -- 125* -- < > -- 116* BUN -- -- -- 8 -- < > -- 7 CREAT -- -- -- 0.62* -- < > -- 0.57* NA -- 142 < > 139 -- < > -- 141 K -- 3.6 < > 3.7 -- < > -- 3.3* CHLOR -- -- -- 109* -- < > -- 107 CO2 -- -- -- 28 -- < > -- 29 TPROT -- -- -- -- -- -- -- 6.6 ALB -- -- -- -- -- -- -- 3.9 CA -- -- -- 8.5 -- < > -- 8.9 ALKPHOS -- -- -- -- -- -- -- 69 TBILI -- -- -- -- -- -- -- 0.4 AST -- -- -- -- -- -- -- 83* ALT -- -- -- -- -- -- -- 30 PTSEC -- -- -- -- -- -- -- 10.6 APTT -- -- -- -- 62.9* < > 46.0* 57.4* INR -- -- -- -- -- -- -- 1.00 MG -- -- -- -- -- -- -- 1.9 < > = values in this interval not displayed. ABG: Recent Labs 02/18/18 1525 02/18/18 1356 02/18/18 1330 PH 7.345* 7.365 7.340 PO2 137.6* 360.0* 40.0 PCO2 41.0 -- -- Assessment/Plan PROBLEMS: Patient Active Hospital Problem List: NSTEMI (non-ST elevated myocardial infarction) ([facility]) (02/16/2018) POST OP ANTICIPATED VENT SUPPORT CABG WITH MORALES , 3 SVG MILD THROMBOCYTOPENIA , EXPECTED CONSUMPTION CRITICAL CARE PLAN: 1. ON PSV, EXPECT EXTUBATION LESS 2 HRS 2. DENIES MEAGAN OR LUNG DSE 3. CXR REVIEWED. ABG GOOD 4. dexmed, looks mild apprhensive, morphine given Critical Care Documentation: The patient has the following organ/system impairment(s): post op anticipated resp insuff, cabg This patient has a high probability of sudden, clinically significant deterioration, which requires the highest level of physician preparedness to intervene urgently. I managed/supervised life or organ supporting interventions that required frequent physician assessment. I devoted my full attention to the direct care of this patient for the amount of time indicated below. Time I spent with family or surrogate(s) is included only if the patient was incapable of providing the necessary information or participating in medical decision making. Time devoted to teaching is not included. Patient Updated Yes Family Updated No Discussed with Staff Yes Time spent providing critical care services: 30 minutes excluding billable procedures. SIGNATURE: Jose Ramirez MD PATIENT NAME: Byron Ambriz DATE: February 18, 2018 TIME: 3:54 PM BLOOD GAS ARTERIAL Collected: 02/18/2018 Status: F Source: [facility] 3:25 PM HEALTH SYSTEM REPOSITORY TYPE CODE TESTS RESULT OUT OF REFERENCE UNITS RANGE LAB FIO2(LOINC % ) FIO2 Value Not Given LAB TEMPA(LOIN C) Temperature 37.0 LAB PH(LOINC) 7.350-7.450 Low pH Arterial 7.345 LAB PCO2(LOINC 36.0-46.0 mm Hg ) PCO2 Arterial 41.0 LAB PO2(LOINC) 85.0-96.0 mm Hg PO2 High Arterial 137.6 LAB HCO3A(LOIN 22.0-26.0 mEq/L C) Low HCO3- 21.9 LAB O2%A(LOINC 95.0-98.0 % ) O2% Sat High Arterial 98.5 LAB BASEX(LOIN -2.5 to 2.5 mEq/L C) Base Excess -3.6 Performed By: #### ABG #### [facility] [address] [address] CHEST 1 VIEW Observed: 02/18/2018 Status: F Source: [facility] 3:21 PM HEALTH SYSTEM REPOSITORY Performed at [facility] APPROVED BY: Nicolas Taylor MD EXAM TITLE: CHEST 1 VIEW DATE: 02/18/2018 15:15 COMPARISON: 02/17/2018 CLINICAL INDICATION/HISTORY: Status post CABG TECHNIQUE: AP supine portable chest FINDINGS: ET, enteric and bilateral thoracostomy tubes appear in appropriate position as does a right central venous catheter. There is no pneumothorax visualized. No large consolidation or sizable pleural effusion. Cardiac size appears stable. IMPRESSION: Status post CABG. HEMOGRAM Collected: 02/18/2018 Status: F Source: [facility] 3:20 PM HEALTH SYSTEM REPOSITORY TYPE CODE TESTS RESULT OUT OF REFERENCE UNITS RANGE LAB WBC(LOINC) 4.23-9.07 thou/cmm WBC 6.62 LAB RBC(LOINC) 4.63-6.08 mil/cmm Low RBC 3.67 LAB HGB(LOINC) 13.7-17.5 g/dL Low Hgb 11.4 LAB HCT(LOINC) 40.1-51.0 % Low Hct 32.7 LAB MCV(LOINC) 83.2-95.6 fl MCV 89.1 LAB MCH(LOINC) 25.7-32.2 pg MCH 31.1 LAB MCHC(LOINC) 32.3-36.5 % MCHC 34.9 LAB RDW(LOINC) 11.6-14.4 % RDW 12.2 LAB RDWSD(LOINC 36.1-45.8 fl ) RDW SD 40.3 LAB PLT(LOINC) 141-365 thou/cmm Low Platelet 102 LAB MPV(LOINC) 8.7-12.0 fl MPV 9.8 Performed By: #### CBC1 #### [facility] [address] [place] [address] PROTIME Collected: 02/18/2018 Status: F Source: [facility] 3:20 PM HEALTH SYSTEM REPOSITORY TYPE CODE TESTS RESULT OUT OF REFERENCE UNITS RANGE LAB PTI(LOINC) 9.3-11.9 sec Prothrombin Time 10.9 LAB INR(LOINC) INR 1.03 Result Comment: Standard Therapy 2.0-3.0 High Dose 2.5-3.5 Performed By: #### PT #### [place] [address] ACTIVATED PTT Collected: 02/18/2018 Status: F Source: [facility] 3:20 PM HEALTH SYSTEM REPOSITORY TYPE CODE TESTS RESULT OUT OF REFERENCE UNITS RANGE LAB APTT(LOINC 22.0-34.0 sec ) High Activated PTT 47.3 Performed By: #### APTT #### [place] [address] BASIC PANEL Collected: 02/18/2018 Status: F Source: [facility] 3:20 PM HEALTH SYSTEM REPOSITORY TYPE CODE TESTS RESULT OUT OF REFERENCE UNITS RANGE LAB NA(LOINC) 136-145 mEq/L Sodium Blood 144 LAB K(LOINC) 3.5-5.1 mEq/L Potassium Blood 3.8 LAB CL(LOINC) 98-107 mEq/L Chloride High Blood 116 LAB CO2(LOINC) 21-32 mEq/L CO2 Blood 25 LAB GLU(LOINC) 70-99 mg/dL Glucose High Blood 117 LAB BUN(LOINC) 7-18 mg/dL BUN Blood 9 LAB CREA(LOINC 0.67-1.17 mg/dL ) Low Creatinine Blood 0.60 LAB CA(LOINC) 8.5-10.1 mg/dL Low Calcium Blood 7.4 LAB ANGAP(LOIN 8-16 C) Low Anion Gap 7 Performed By: #### P8 #### [facility] [address] [place] [address] MAGNESIUM BLOOD Collected: 02/18/2018 Status: F Source: [facility] 3:20 PM HEALTH SYSTEM REPOSITORY TYPE CODE TESTS RESULT OUT OF REFERENCE UNITS RANGE LAB MAG(LOINC) 1.6-2.6 mg/dL Magnesium Blood 2.5 Performed By: #### MAG #### [facility] [address] [place] [address] MDRD GFR Collected: 02/18/2018 Status: F Source: [facility] 3:20 PM HEALTH SYSTEM REPOSITORY TYPE CODE TESTS RESULT OUT OF RANGE REFERENCE UNITS LAB GFRFN(LOINC >60mL/min/1.73m ) 2 eGFR >60 Result Comment: If the patient is , multiply the result by 1.210. Performed By: #### GFR #### [facility] [address] [place] [address] BRIEF OP NOT Observed: 02/18/2018 Status: COMPLETED Source: [place] 3:08 PM CLINIC OTHER CAMPUS REPOSITORY O ID: [id number] Author: Ty Chappell Service: Cardiac Surgery Author Type: Physician Type: Brief Op Note Filed: 02/18/2018 3:11 PM Note Text: CARDIOTHORACIC BRIEF OP NOTE LOG ID: [id number] SURGERY/PROCEDURE DATE: 02/18/2018 INCISION/PROCEDURE START TIME: 10:08 AM INCISION CLOSE/PROCEDURE END TIME: 2:37 PM SURGEON(S) AND BEAUTY ARTIST(S): Surgeon(s) and Role: * Ty Chappell - Primary * Chapin Zamarripa - Resident - Assisting Respiratory Assistant: Monika Arzate) SA Patrick; Cathleen Arzate) SA Elvis Respiratory Assistant (Relief): Tatiana Arzate) SA Jemma PROCEDURES AND ANESTHESIA: Procedure(s) and Anesthesia Type: * BYPASS GRAFT ARTERY CORONARY ON-PUMP USING VENOUS GRAFT(S) AND ARTERIAL GRAFT(S); TWO VENOUS GRAFTS - General Great Saphenous Vein, Left , Percutaneous endoscopic Internal Thoracic Artery, Bilateral, Open CABG x 4 (morales-lad; elise-diag; svg-RI; svg-OM; evh) ANESTHESIA: General BRIEF FINDINGS: normal LV function pre and post CABG; acute infarct proximal basilar obtuse margin (ramus intermedius distribution) PREOPERATIVE DIAGNOSIS: coronary artery disease POSTOPERATIVE DIAGNOSIS: coronary artery disease ESTIMATED BLOOD LOSS: 250 ml SPECIMENS: None COMPLICATIONS: None SIGNATURE: Ty Chappell MD PATIENT NAME: Byron Ambriz DATE: February 18, 2018 TIME: 3:09 PM PAGER/CONTACT #: [phone] GLUCOSE METER Collected: 02/18/2018 Status: F Source: [facility] 3:03 PM HEALTH SYSTEM REPOSITORY TYPE CODE TESTS RESULT OUT OF REFERENCE UNITS RANGE LAB GLUBL(LOINC 70-99 mg/dL ) High Glucose Meter 119 Result Comment: RN NOTIFIED Performed By: #### GLMET #### [place] [address] CG8 ARTERIAL PANEL Collected: 02/18/2018 Status: F Source: [facility] (I-STAT) 1:56 PM HEALTH SYSTEM REPOSITORY TYPE CODE TESTS RESULT OUT OF REFERENCE UNITS RANGE LAB PHISA(LOIN 7.350-7.450 C) pH (i-STAT) 7.365 LAB PC2IA(LOIN 35.0-45.0 mm Hg C) PCO2 (i-STAT) 40.4 LAB PO2IA(LOIN 80.0-105.0 mm Hg C) PO2 High (i-STAT) 360.0 LAB HC3IA(LOIN 22.0-26.0 mmol/L C) HCO3- (i-STAT) 23.1 LAB BSXIA(LOIN -2.0 to 3.0 mmol/L C) Base Excess (i-STAT) -2.0 LAB SO2IA(LOIN 95.0-98.0 % C) O2% Sat. High (i-STAT) 100.0 LAB TC2IA(LOIN 23-27 mmol/L C) Total CO2 (i-STAT) 24 LAB GLUIA(LOIN 70-99 mg/dL C) Glucose High (i-STAT) 161 LAB NAI2A(LOIN 138-146 mmol/L C) Sodium (i-STAT) 142 LAB KIS2A(LOIN 3.5-4.9 mmol/L C) Potassium 3.6 (i-STAT) LAB ICALA(LOIN 4.5-5.3 mg/dL C) Ionized Calcium (iSTAT) 5.0 LAB HCTIA(LOIN 38-51 %PCV C) Low Hematocrit 26 (i-STAT) LAB HGBIA(LOIN 12.0-17.0 g/dL C) Low Hemoglobin 8.8 (i-STAT) Performed By: #### CG8IA #### [facility] [address] [place] [address] ACT ARTERIAL PANEL Collected: 02/18/2018 Status: F Source: [facility] (I-STAT) 1:55 PM HEALTH SYSTEM REPOSITORY TYPE CODE TESTS RESULT OUT OF REFERENCE UNITS RANGE LAB ACTAI(LOINC 74-137 sec ) Kaolin ACT ( 131 i-STAT) Performed By: #### ACTIA #### [facility] [address] [place] [address] CG8 VENOUS PANEL Collected: 02/18/2018 Status: F Source: [facility] (I-STAT) 1:30 PM HEALTH SYSTEM REPOSITORY TYPE CODE TESTS RESULT OUT OF REFERENCE UNITS RANGE LAB PHISV(LOIN 7.310-7.410 C) pH (i-STAT) 7.340 LAB PC2IV(LOIN 41.0-51.0 mm Hg C) PCO2 (i-STAT) 42.9 LAB PO2IV(LOIN 20.0-50.0 mm Hg C) PO2 (i-STAT) 40.0 LAB HC3IV(LOIN 23.0-28.0 mmol/L C) HCO3- (i-STAT) 23.2 LAB BSXIV(LOIN -2.0 to 3.0 mmol/L C) Base Excess (i-STAT) -3.0 LAB SO2IV(LOIN 35.0-85.0 % C) O2% Sat. (i-STAT) 71.0 LAB TC2IV(LOIN 24-29 mmol/L C) Total CO2 (i-STAT) 24 LAB GLUIV(LOIN 70-99 mg/dL C) Glucose High (i-STAT) 193 LAB NAI2V(LOIN 138-146 mmol/L C) Sodium (i-STAT) 140 LAB KIS2V(LOIN 3.5-4.9 mmol/L C) Potassium 4.1 (i-STAT) LAB ICALV(LOIN 4.5-5.3 mg/dL C) Low Ionized Calcium (iSTAT) 4.2 LAB HCTIV(LOIN 38-51 %PCV C) Low Hematocrit 26 (i-STAT) LAB HGBIV(LOIN 12.0-17.0 g/dL C) Low Hemoglobin 8.8 (i-STAT) Performed By: #### [id number] #### [facility] [address] [place], [place] [address] CG8 ARTERIAL PANEL Collected: 02/18/2018 Status: F Source: [facility] (I-STAT) 1:29 PM [facility] REPOSITORY TYPE CODE TESTS RESULT OUT OF REFERENCE UNITS RANGE LAB PHISA(LOIN 7.350-7.450 C) pH (i-STAT) 7.355 LAB PC2IA(LOIN 35.0-45.0 mm Hg C) PCO2 (i-STAT) 43.7 LAB PO2IA(LOIN 80.0-105.0 mm Hg C) PO2 High (i-STAT) 318.0 LAB HC3IA(LOIN 22.0-26.0 mmol/L C) HCO3- (i-STAT) 24.4 LAB BSXIA(LOIN -2.0 to 3.0 mmol/L C) Base Excess (i-STAT) -1.0 LAB SO2IA(LOIN 95.0-98.0 % C) O2% Sat. High (i-STAT) 100.0 LAB TC2IA(LOIN 23-27 mmol/L C) Total CO2 (i-STAT) 26 LAB GLUIA(LOIN 70-99 mg/dL C) Glucose High (i-STAT) 199 LAB NAI2A(LOIN 138-146 mmol/L C) Sodium (i-STAT) 139 LAB KIS2A(LOIN 3.5-4.9 mmol/L C) Potassium 4.1 (i-STAT) LAB ICALA(LOIN 4.5-5.3 mg/dL C) Low Ionized Calcium (iSTAT) 4.2 LAB HCTIA(LOIN 38-51 %PCV C) Low Hematocrit 26 (i-STAT) LAB HGBIA(LOIN 12.0-17.0 g/dL C) Low Hemoglobin 8.8 (i-STAT) Performed By: #### CG8IA #### [facility] [address] [place], [place] [address] ACT ARTERIAL PANEL Collected: 02/18/2018 Status: F Source: [facility] (I-STAT) 1:12 PM HEALTH SYSTEM REPOSITORY TYPE CODE TESTS RESULT OUT OF REFERENCE UNITS RANGE LAB ACTAI(LOINC 74-137 sec ) High Kaolin ACT ( 742 i-STAT) Performed By: #### ACTIA #### [facility] [address] [place] [id number] CG8 ARTERIAL PANEL Collected: 02/18/2018 Status: F Source: [facility] (I-STAT) 1:01 PM HEALTH SYSTEM REPOSITORY TYPE CODE TESTS RESULT OUT OF REFERENCE UNITS RANGE LAB PHISA(LOIN 7.350-7.450 C) pH (i-STAT) 7.388 LAB PC2IA(LOIN 35.0-45.0 mm Hg C) PCO2 (i-STAT) 42.3 LAB PO2IA(LOIN 80.0-105.0 mm Hg C) PO2 High (i-STAT) 328.0 LAB HC3IA(LOIN 22.0-26.0 mmol/L C) HCO3- (i-STAT) 25.5 LAB BSXIA(LOIN -2.0 to 3.0 mmol/L C) Base Excess (i-STAT) 1.0 LAB SO2IA(LOIN 95.0-98.0 % C) O2% Sat. High (i-STAT) 100.0 LAB TC2IA(LOIN 23-27 mmol/L C) Total CO2 (i-STAT) 27 LAB GLUIA(LOIN 70-99 mg/dL C) Glucose High (i-STAT) 192 LAB NAI2A(LOIN 138-146 mmol/L C) Sodium (i-STAT) 141 LAB KIS2A(LOIN 3.5-4.9 mmol/L C) Potassium 3.9 (i-STAT) LAB ICALA(LOIN 4.5-5.3 mg/dL C) Low Ionized Calcium (iSTAT) 4.4 LAB HCTIA(LOIN 38-51 %PCV C) Low Hematocrit 27 (i-STAT) LAB HGBIA(LOIN 12.0-17.0 g/dL C) Low Hemoglobin 9.2 (i-STAT) Performed By: #### CG8IA #### [facility] [address] [place] [address] ACT ARTERIAL PANEL Collected: 02/18/2018 Status: F Source: [facility] (I-STAT) 1:00 PM HEALTH SYSTEM REPOSITORY TYPE CODE TESTS RESULT OUT OF REFERENCE UNITS RANGE LAB ACTAI(LOINC 74-137 sec ) High Kaolin ACT ( 428 i-STAT) Performed By: #### ACTIA #### [facility] [address] [place] [address] ACT ARTERIAL PANEL Collected: 02/18/2018 Status: F Source: [facility] (I-STAT) 12:47 PM HEALTH SYSTEM REPOSITORY TYPE CODE TESTS RESULT OUT OF REFERENCE UNITS RANGE LAB ACTAI(LOINC 74-137 sec ) High Kaolin ACT ( 411 i-STAT) Performed By: #### ACTIA #### [facility] [address] [place] [address] NURSING PROG Observed: 02/18/2018 Status: COMPLETED Source: [place] 12:43 PM CLINIC OTHER CAMPUS REPOSITORY HNO ID: [id number] Author: Aminah Mccoy (Rn), RN Service: Cardiovascular Disease Author Type: Registered Nurse Type: Nursing Progress Note Filed: 02/18/2018 1:58 PM Note Text: FAMILY NOTIFIED OF CASE STATUS CG8 ARTERIAL PANEL Collected: 02/18/2018 Status: F Source: [facility] (I-STAT) 12:34 PM HEALTH SYSTEM REPOSITORY TYPE CODE TESTS RESULT OUT OF REFERENCE UNITS RANGE LAB PHISA(LOIN 7.350-7.450 C) pH (i-STAT) 7.395 LAB PC2IA(LOIN 35.0-45.0 mm Hg C) PCO2 (i-STAT) 41.4 LAB PO2IA(LOIN 80.0-105.0 mm Hg C) PO2 High (i-STAT) 374.0 LAB HC3IA(LOIN 22.0-26.0 mmol/L C) HCO3- (i-STAT) 25.4 LAB BSXIA(LOIN -2.0 to 3.0 mmol/L C) Base Excess (i-STAT) 1.0 LAB SO2IA(LOIN 95.0-98.0 % C) O2% Sat. High (i-STAT) 100.0 LAB TC2IA(LOIN 23-27 mmol/L C) Total CO2 (i-STAT) 27 LAB GLUIA(LOIN 70-99 mg/dL C) Glucose High (i-STAT) 193 LAB NAI2A(LOIN 138-146 mmol/L C) Sodium (i-STAT) 140 LAB KIS2A(LOIN 3.5-4.9 mmol/L C) Potassium 4.0 (i-STAT) LAB ICALA(LOIN 4.5-5.3 mg/dL C) Ionized Calcium (iSTAT) 4.5 LAB HCTIA(LOIN 38-51 %PCV C) Low Hematocrit 27 (i-STAT) LAB HGBIA(LOIN 12.0-17.0 g/dL C) Low Hemoglobin 9.2 (i-STAT) Performed By: #### CG8IA #### [place] [id number] ACT ARTERIAL PANEL Collected: 02/18/2018 Status: F Source: [facility] (I-STAT) 12:33 PM HEALTH SYSTEM REPOSITORY TYPE CODE TESTS RESULT OUT OF REFERENCE UNITS RANGE LAB ACTAI(LOINC 74-137 sec ) High Kaolin ACT ( 428 i-STAT) Performed By: #### ACTIA #### [place] [id number] CG8 ARTERIAL PANEL Collected: 02/18/2018 Status: F Source: [facility] (I-STAT) 12:04 PM HEALTH SYSTEM REPOSITORY TYPE CODE TESTS RESULT OUT OF REFERENCE UNITS RANGE LAB PHISA(LOIN 7.350-7.450 C) pH (i-STAT) 7.383 LAB PC2IA(LOIN 35.0-45.0 mm Hg C) PCO2 (i-STAT) 41.9 LAB PO2IA(LOIN 80.0-105.0 mm Hg C) PO2 High (i-STAT) 404.0 LAB HC3IA(LOIN 22.0-26.0 mmol/L C) HCO3- (i-STAT) 25.0 LAB BSXIA(LOIN -2.0 to 3.0 mmol/L C) Base Excess (i-STAT) 0.0 LAB SO2IA(LOIN 95.0-98.0 % C) O2% Sat. High (i-STAT) 100.0 LAB TC2IA(LOIN 23-27 mmol/L C) Total CO2 (i-STAT) 26 LAB GLUIA(LOIN 70-99 mg/dL C) Glucose High (i-STAT) 221 LAB NAI2A(LOIN 138-146 mmol/L C) Sodium (i-STAT) 140 LAB KIS2A(LOIN 3.5-4.9 mmol/L C) Potassium 3.6 (i-STAT) LAB ICALA(LOIN 4.5-5.3 mg/dL C) Low Ionized Calcium (iSTAT) 4.2 LAB HCTIA(LOIN 38-51 %PCV C) Low Hematocrit 27 (i-STAT) LAB HGBIA(LOIN 12.0-17.0 g/dL C) Low Hemoglobin 9.2 (i-STAT) Performed By: #### CG8IA #### [place] [id number] CG8 VENOUS PANEL Collected: 02/18/2018 Status: F Source: [facility] (I-STAT) 12:01 PM HEALTH SYSTEM REPOSITORY TYPE CODE TESTS RESULT OUT OF REFERENCE UNITS RANGE LAB PHISV(LOIN 7.310-7.410 C) pH (i-STAT) 7.363 LAB PC2IV(LOIN 41.0-51.0 mm Hg C) Low PCO2 (i-STAT) 38.9 LAB PO2IV(LOIN 20.0-50.0 mm Hg C) PO2 (i-STAT) 47.0 LAB HC3IV(LOIN 23.0-28.0 mmol/L C) Low HCO3- (i-STAT) 22.1 LAB BSXIV(LOIN -2.0 to 3.0 mmol/L C) Base Excess (i-STAT) -3.0 LAB SO2IV(LOIN 35.0-85.0 % C) O2% Sat. (i-STAT) 81.0 LAB TC2IV(LOIN 24-29 mmol/L C) Low Total CO2 (i-STAT) 23 LAB GLUIV(LOIN 70-99 mg/dL C) Glucose High (i-STAT) 230 LAB NAI2V(LOIN 138-146 mmol/L C) Sodium (i-STAT) 139 LAB KIS2V(LOIN 3.5-4.9 mmol/L C) Potassium 4.1 (i-STAT) LAB ICALV(LOIN 4.5-5.3 mg/dL C) Low Ionized Calcium (iSTAT) 4.2 LAB HCTIV(LOIN 38-51 %PCV C) Low Hematocrit 27 (i-STAT) LAB HGBIV(LOIN 12.0-17.0 g/dL C) Low Hemoglobin 9.2 (i-STAT) Performed By: #### CG8IV #### [facility] [address] [place] [address] ACT VENOUS PANEL Collected: 02/18/2018 Status: F Source: [facility] (I-STAT) 12:00 PM HEALTH SYSTEM REPOSITORY TYPE CODE TESTS RESULT OUT OF REFERENCE UNITS RANGE LAB ACTVI(LOINC 74-137 sec ) High Kaolin ACT 648 (i-STAT) Performed By: #### ACTVS #### [facility] [address] [place], [place] [address] CG8 ARTERIAL PANEL Collected: 02/18/2018 Status: F Source: [facility] (I-STAT) 11:35 AM HEALTH SYSTEM REPOSITORY TYPE CODE TESTS RESULT OUT OF REFERENCE UNITS RANGE LAB PHISA(LOIN 7.350-7.450 C) pH (i-STAT) 7.380 LAB PC2IA(LOIN 35.0-45.0 mm Hg C) PCO2 (i-STAT) 41.5 LAB PO2IA(LOIN 80.0-105.0 mm Hg C) PO2 High (i-STAT) 290.0 LAB HC3IA(LOIN 22.0-26.0 mmol/L C) HCO3- (i-STAT) 24.5 LAB BSXIA(LOIN -2.0 to 3.0 mmol/L C) Base Excess (i-STAT) -1.0 LAB SO2IA(LOIN 95.0-98.0 % C) O2% Sat. High (i-STAT) 100.0 LAB TC2IA(LOIN 23-27 mmol/L C) Total CO2 (i-STAT) 26 LAB GLUIA(LOIN 70-99 mg/dL C) Glucose High (i-STAT) 149 LAB NAI2A(LOIN 138-146 mmol/L C) Sodium (i-STAT) 142 LAB KIS2A(LOIN 3.5-4.9 mmol/L C) Low Potassium 3.3 (i-STAT) LAB ICALA(LOIN 4.5-5.3 mg/dL C) Ionized Calcium (iSTAT) 4.6 LAB HCTIA(LOIN 38-51 %PCV C) Low Hematocrit 34 (i-STAT) LAB HGBIA(LOIN 12.0-17.0 g/dL C) Low Hemoglobin 11.6 (i-STAT) Performed By: #### CG8IA #### [facility] [address] [place] [address] ACT ARTERIAL PANEL Collected: 02/18/2018 Status: F Source: [facility] (I-STAT) 11:34 AM HEALTH SYSTEM REPOSITORY TYPE CODE TESTS RESULT OUT OF REFERENCE UNITS RANGE LAB ACTAI(LOINC 74-137 sec ) High Kaolin ACT ( 747 i-STAT) Performed By: #### ACTIA #### [facility] [address] [place] [address] NURSING PROG Observed: 02/18/2018 Status: COMPLETED Source: [place] 10:24 AM CLINIC OTHER CAMPUS REPOSITORY HNO ID: [id number] Author: Aminah Mccoy (Rn), RN Service: Cardiovascular Disease Author Type: Registered Nurse Type: Nursing Progress Note Filed: 02/18/2018 10:25 AM Note Text: FAMILY NOTIFIED OF CASE STATUS CG8 ARTERIAL PANEL Collected: 02/18/2018 Status: F Source: [facility] (I-STAT) 10:01 AM HEALTH SYSTEM REPOSITORY TYPE CODE TESTS RESULT OUT OF REFERENCE UNITS RANGE LAB PHISA(LOIN 7.350-7.450 C) pH High (i-STAT) 7.452 LAB PC2IA(LOIN 35.0-45.0 mm Hg C) PCO2 (i-STAT) 37.4 LAB PO2IA(LOIN 80.0-105.0 mm Hg C) PO2 High (i-STAT) 453.0 LAB HC3IA(LOIN 22.0-26.0 mmol/L C) HCO3- High (i-STAT) 26.1 LAB BSXIA(LOIN -2.0 to 3.0 mmol/L C) Base Excess (i-STAT) 2.0 LAB SO2IA(LOIN 95.0-98.0 % C) O2% Sat. High (i-STAT) 100.0 LAB TC2IA(LOIN 23-27 mmol/L C) Total CO2 (i-STAT) 27 LAB GLUIA(LOIN 70-99 mg/dL C) Glucose High (i-STAT) 151 LAB NAI2A(LOIN 138-146 mmol/L C) Sodium (i-STAT) 141 LAB KIS2A(LOIN 3.5-4.9 mmol/L C) Low Potassium 3.4 (i-STAT) LAB ICALA(LOIN 4.5-5.3 mg/dL C) Ionized Calcium (iSTAT) 4.5 LAB HCTIA(LOIN 38-51 %PCV C) Low Hematocrit 34 (i-STAT) LAB HGBIA(LOIN 12.0-17.0 g/dL C) Low Hemoglobin 11.6 (i-STAT) Performed By: #### CG8IA #### [facility] [address] [place] [address] ACT ARTERIAL PANEL Collected: 02/18/2018 Status: F Source: [facility] (I-STAT) 10:00 AM HEALTH SYSTEM REPOSITORY TYPE CODE TESTS RESULT OUT OF REFERENCE UNITS RANGE LAB ACTAI(LOINC 74-137 sec ) Kaolin ACT ( 120 i-STAT) Performed By: #### ACTIA #### [facility] [address] [place] [address] CONSULT Observed: 02/18/2018 Status: COMPLETED Source: [place] 8:38 AM CLINIC OTHER CAMPUS REPOSITORY HNO ID: [id number] Author: Jose Luis Tay Service: Endocrinology Author Type: Resident Type: Consults Filed: 02/28/2018 3:33 PM Note Text: Attestation signed by Prosper Tyson at 03/07/2018 8:05 PM Prosper Tyson MD INTERNAL MEDICINE consult note SERVICE DATE: 02/18/2018 SERVICE TIME: 8:38 PRIMARY CARE PHYSICIAN: Libby Arias MD Subjective CHIEF COMPLAINT: Type 2 DM Hgba1c = 6.5; CABG today HISTORY OF PRESENT ILLNESS: Mr. Ambriz is a 62 year old male past medical hx of DM who presents dx with NSTEMI type 1 s/p [facility] 01/23, Multivessel CAD planned for CABG Today. At home, he is on Metformin 500 mg bid. Blood sugars in the hospital Component Latest Ref Rng AND Units 02/17/2018 02/17/2018 02/17/2018 02/17/2018 02/18/2018 8:06 AM 11:52 AM 4:37 PM 9:30 PM GLUCOSE METER 70 - 99 mg/dL 137 (H) 217 (H) 106 (H) 99 145 (H) PAST MEDICAL HISTORY Diagnosis Date - Abnormal cardiovascular stress test - CAD (coronary artery disease) - Chest pain - Dyspnea - GERD (gastroesophageal reflux disease) - Hemorrhage of gastrointestinal tract, unspecified - Internal hemorrhoids without mention of complication - Other convulsions none since 1975 - Pancreatitis - Seizures (HCC) - Type 2 diabetes mellitus with hyperglycemia (HCC) PAST SURGICAL HISTORY Procedure Laterality Date - COLONOSCOP W/ OR W/O [facility] SPEC 04/15/08 - LAP CHOLECYSTECT/CHOLANGIOGRAPHY FAMILY HISTORY Problem Relation Age of Onset - Hypertension Mother - Heart Brother - Lipids Brother Social History Substance Use Topics - Smoking status: Never Smoker - Smokeless tobacco: Former User Types: Chew - Alcohol use Yes Comment: 1x/month beer MEDICATIONS: Prescriptions Prior to Admission: pantoprazole DR (PROTONIX) 40 mg tablet Disp: Rfl: 02/15/2018 at Unknown time metFORMIN ER (GLUCOPHAGE XR) 500 mg 24 hr tablet Take 2 tablets by mouth twice daily. Disp: 360 tablet Rfl: 1 02/15/2018 at Unknown time phenytoin ER (DILANTIN) 100 mg ER capsule Disp: Rfl: 02/15/2018 at Unknown time ASPIRIN ORAL Take by mouth. Disp: Rfl: 02/16/2018 at Unknown time DOCOSAHEXANOIC ACID/EPA (FISH OIL ORAL) Take by mouth. Disp: Rfl: 02/16/2018 at Unknown time MULTIVITAMIN TAB Take one(1) tablet daily. Disp: Rfl: 0 02/15/2018 at Unknown time ALLERGIES No Known Allergies Objective PHYSICAL EXAM: Patient Vitals for the past 24 hrs: BP Temp Pulse Resp SpO2 Weight 02/18/18 0700 141/80 36.5 ?C (97.7 ?F) 65 16 97 % - 02/18/18 0600 124/81 - 65 14 97 % - 02/18/18 0500 132/84 - 69 16 97 % - 02/18/18 0400 - - 62 16 96 % - 02/18/18 0300 130/78 37.1 ?C (98.8 ?F) 66 13 97 % - 02/18/18 0200 - - 67 21 95 % - 02/18/18 0100 122/70 - 65 19 95 % - 02/18/18 0000 - - 67 17 96 % - 02/17/18 2300 118/74 - 66 20 95 % - 02/17/18 2100 128/74 - 75 18 95 % - 02/17/18 2000 138/88 - 79 19 95 % - 02/17/18 1900 127/80 36.8 ?C (98.2 ?F) 81 18 96 % - 02/17/18 1800 132/86 - 83 21 95 % - 02/17/18 1700 128/88 - 72 16 97 % - 02/17/18 1600 135/82 - 76 12 97 % 72.2 kg (159 lb 2.8 oz) 02/17/18 1500 155/96 36.7 ?C (98.1 ?F) 74 13 96 % - 02/17/18 1410 - - 75 20 97 % - 02/17/18 1409 130/81 - - - - - 02/17/18 1400 128/86 - 69 19 98 % - 02/17/18 1348 - - 68 21 98 % - 02/17/18 1300 - - 70 20 97 % - 02/17/18 1200 136/92 - 68 18 96 % - 02/17/18 1100 - 36.9 ?C (98.4 ?F) 74 14 98 % - 02/17/18 1000 131/85 - 71 19 97 % - 02/17/18 0900 - - 66 14 99 % - 02/17/18 0854 130/80 - 67 - - - Assessment/Plan Active Problems: NSTEMI (non-ST elevated myocardial infarction) ([facility]) POA: Yes Assessment AND Plan: - undergoing CABG today Type 2 DM - maintain blood sugars 140 - 180 - recommend insulin gtt. SIGNATURE: Jose Luis Tay MD PATIENT NAME: Byron Ambriz DATE: February 18, 2018 TIME: 8:38 AM PAGER/CONTACT #:[phone] GLUCOSE METER Collected: 02/18/2018 Status: F Source: [facility] 8:20 AM HEALTH SYSTEM REPOSITORY TYPE CODE TESTS RESULT OUT OF REFERENCE UNITS RANGE LAB GLUBL(LOINC 70-99 mg/dL ) High Glucose Meter 145 Result Comment: RN NOTIFIED Performed By: #### GLMET #### [place] [address] CDVI B MODE Observed: 02/18/2018 Status: F Source: [facility] 7:52 AM HEALTH SYSTEM REPOSITORY Performed at [facility] APPROVED BY: ELEAZAR RAMÍREZ MD EXAM TITLE: BILATERAL CAROTID ULTRASOUND DATE:02/18/2018 07:06 CLINICAL INDICATION/HISTORY: Preop CABG TECHNIQUE: Technologist note made of a tortuous distal ICA on the right FINDINGS: When looking the right carotid system, maximum velocity in the right common carotid arteries 91 cm/s the distal common carotid artery. In the internal carotid artery the maximum velocity is 150 cm/s in the distal internal carotid artery. This correlates the ratio 1.64. There is minimal significant calcific plaque in the right carotid system. The vertebral arteries antegrade. When looking at the left carotid system, maximum velocity in the left common carotid arteries 102 cm/s the distal common carotid artery. In the internal carotid artery the maximum velocity is 78 cm/s t he mid internal carotid artery. This correlates the ratio 0.77. There is minimal significant calcific plaque in the left carotid system. The vertebral arteries antegrade. IMPRESSION: On the basis noninvasive vascular study, by velocity criteria, there is a 50-69% stenosis of the right internal carotid artery. This could be mildly artificially elevated secondary to tortuosity. Ther e is a less than 50% stenosis of the left internal carotid artery. The vertebral arteries are antegrade. ANES PREOP Observed: 02/18/2018 Status: COMPLETED Source: [place] 7:14 AM CLINIC OTHER CAMPUS REPOSITORY HNO ID: [id number] Author: Lenny Chahal Service: Anesthesiology Author Type: Physician Type: Anesthesia PreOp Filed: 02/18/2018 12:35 PM Note Text: ANESTHESIOLOGY DAY OF SURGERY NOTE SERVICE DATE: 02/18/2018 SERVICE TIME: 7:14 AM : 1955 Procedure(s) (LRB): BYPASS GRAFT ARTERY CORONARY ON-PUMP THREE CORONARY VENOUS GRAFTS (N/A) Surgeon(s): Ty Chappell Estimated body mass index is 25.69 kg/m? as calculated from the following: Height as of this encounter: 167.6 cm (5' 6). Weight as of this encounter: 72.2 kg (159 lb 2.8 oz). Most recent hematocrit and potassium results: Hematocrit 38.0 02/18/2018 Potassium 3.7 02/18/2018 ANES DOS/PREOP NOTE: Vitals: 02/18/18 0200 02/18/18 0300 02/18/18 0400 02/18/18 0500 BP: 130/78 132/84 Pulse: 67 66 62 69 Resp: 21 13 16 Temp: 37.1 ?C (98.8 ?F) TempSrc: SpO2: 95% 97% 97% Weight: Height: ACTIVE PROBLEM LIST Pancreatitis Type 2 Diabetes Mellitus With Hyperglycemia (Hcc) Nstemi (Non-St Elevated Myocardial Infarction) (Hcc) PAST MEDICAL HISTORY Diagnosis Date - Abnormal cardiovascular stress test - CAD (coronary artery disease) - Chest pain - Dyspnea - GERD (gastroesophageal reflux disease) - Hemorrhage of gastrointestinal tract, unspecified - Internal hemorrhoids without mention of complication - Other convulsions none since 1975 - Pancreatitis - Seizures (HCC) - Type 2 diabetes mellitus with hyperglycemia (HCC) PAST SURGICAL HISTORY Procedure Laterality Date - COLONOSCOP W/ OR W/O [facility] SPEC 04/15/08 - LAP CHOLECYSTECT/CHOLANGIOGRAPHY FAMILY HISTORY Problem Relation Age of Onset - Hypertension Mother - Heart Brother - Lipids Brother Social History: Social History Substance Use Topics - Smoking status: Never Smoker - Smokeless tobacco: Former User Types: Chew - Alcohol use Yes Comment: 1x/month beer No current facility-administered medications on file prior to encounter. Current Outpatient Prescriptions on File Prior to Encounter: pantoprazole DR (PROTONIX) 40 mg tablet metFORMIN ER (GLUCOPHAGE XR) 500 mg 24 hr tablet Take 2 tablets by mouth twice daily. phenytoin ER (DILANTIN) 100 mg ER capsule ASPIRIN ORAL Take by mouth. DOCOSAHEXANOIC ACID/EPA (FISH OIL ORAL) Take by mouth. MULTIVITAMIN TAB Take one(1) tablet daily. Current Facility-Administered Medications: dextrose 50% in water 100 mL, insulin regular human 10 Units, potassium chloride 80 mEq, lidocaine 100 mg, magnesium sulfate 4 g in electrolyte-a (PLASMA-LYTE A) 1,000 mL solution MISCELLANEOUS ONCE Ty A [place] dextrose 50% in water 50 mL, insulin regular human 5 Units, potassium chloride 20 mEq, lidocaine 50 mg, magnesium sulfate 2 g in electrolyte-a (PLASMA-LYTE A) 500 mL solution MISCELLANEOUS ONCE Ty A [place] heparin 3,000 Units in NaCl 0.9% 500 mL 1-5,000 Units/hr INTRAVENOUS ONCE Ty A [place] PHENYLephrine 20 mg in NaCl 0.9% 250 mL (NEOSYNEPHRINE) 25- 300 mcg/min INTRAVENOUS ONCE Ty A [place] PHENYLephrine 10 mg in NaCl 0.9% 250 mL (NEOSYNEPHRINE) 25- 300 mcg/min INTRAVENOUS ONCE Ty A [place] nitroglycerin 100 mg in D5W 250 mL 5-200 mcg/min INTRAVENOUS ONCE Ty A [place] EPINEPHrine 4 mg in NaCl 0.9% 250 mL 0.5-10 mcg/min INTRAVENOUS ONCE Ty A [place] insulin regular human 100 Units in NaCl 0.9% 100 mL 0.5 Units/hr INTRAVENOUS ONCE Ty A [place] dexmedetomidine 400 mcg in NaCl 0.9% 100 mL (PRECEDEX) 0.2- 0.7 mcg/kg/hr INTRAVENOUS ONCE Ty A [place] NORepinephrine 16 mg in NaCl 0.9% 250 mL (LEVOPHED) 0.6-30 mcg/min INTRAVENOUS ONCE Ty A [place] tranexamic acid iv piggyback 2 g in NaCl 0.9% [address] SURGERY 2 g OTHER ONCE Ty A [place] mupirocin ointment (BACTROBAN) TOPICAL BID Nirua (Manager Acquisition) MICHELLE Garnica phenytoin ER 100 mg cap(s) (DILANTIN) 100 mg ORAL DAILY Veronique (Res) [place] 100 mg at 02/17/18 0854 0.9% NaCl 2-10 mL 2-10 mL INTRAVENOUS q 12 H Veronique (Res) [place] 10 mL at 02/17/18 0854 nitroglycerin sublingual 0.4 mg tab(s) (NITROQUICK) 0.4 mg SUBLINGUAL q 5 MIN PRN Veronique (Res) [place] atropine 0.4 mg injection 0.4 mg INTRAVENOUS PRN(NO DISPENSE) Veronique (Res) [place] aspirin, enteric coated 81 mg tab(s) (ASPIRIN, ENTERIC COATED) 81 mg ORAL DAILY Veronique (Res) [place] 81 mg at 02/17/18 0854 atorvastatin 80 mg tab(s) (LIPITOR) 80 mg ORAL AT BEDTIME Veronique (Res) [place] 80 mg at 02/17/18 2122 heparin iv infusion (LOW DOSE ACS/NOMOGRAM) 25,000 units in NaCl 0.45% 250 mL PREMIX 0-3,000 Units/hr INTRAVENOUS CONTINUOUS Veronique (Res) [place] Last Rate: 14 mL/hr at 02/18/18 0230 1,400 Units/hr at 02/18/18 0230 And heparin RATE CHANGE bolus 1,000-4,000 Units for subtherapeutic aptt results 1,000-4,000 Units INTRAVENOUS PRN Veronique (Res) [place] 2,300 Units at 02/17/18 1532 carvedilol 3.125 mg tab(s) (COREG) 3.125 mg ORAL BID w MEALS Veronique (Res) [place] 3.125 mg at 02/17/18 1647 dextrose 40 % 15 g 15 g ORAL PRN Veronique (Res) [place] Or glucagon 1 mg injection (GLUCAGEN) 1 mg INTRAMUSCULAR PRN Veronique (Res) [place] Or dextrose 50% in water 25 mL syringe 12.5 g INTRAVENOUS PRN Veronique (Res) [place] insulin lispro pen (rapid acting) (HumaLOG KWIKPEN) SUBCUTANEOUS q 6 H Veronique (Res) [place] 2 Units at 02/17/18 1304 NaCl 0.9% iv infusion 75 mL/hr INTRAVENOUS CONTINUOUS Veronique (Res) [place] Last Rate: 75 mL/hr at 02/18/18 0200 75 mL/hr at 02/18/18 0200 nitroglycerin 100 mg in D5W 250 mL 5-200 mcg/min INTRAVENOUS CONTINUOUS Veronique (Res) [place] Stopped at 02/17/18 1020 acetaminophen 650 mg tab(s) (TYLENOL) 650 mg ORAL q 4 H PRN Veronique (Res) [place] 650 mg at 02/16/18 2219 Allergies: ALLERGIES No Known Allergies DOS EXAM: Adequate NPO Status: Yes Anesthetic Risks, Benefits, Alternatives, Personnel and Consent Discussed: Yes Patient agrees to proceed: Yes Previous Anesthesia: No history of adverse event Airway Assessment: MP 2; Neck ROM: Full ROM without neurologic symptoms; Airway Evaluation: No significant abnormalities Symptoms of Sleep Apnea: Hypertension, Age over 50 (62 year old) and Male gender Dentition: Teeth intact Additional Physical Exam: Lungs: Patient health status unchanged since recent history and physical. See history and physical for exam findings. Cardiac: Patient health status unchanged since recent history and physical. See history and physical for exam findings. Additional Pertinent Findings: N/A Blood Products: Will accept Blood/Blood Products Anesthetic Plan: General Anesthetic Monitoring: Standard ASA Monitors, Invasive Hemodynamic Monitoring Arterial line, RANDAL - patient denies history of stricture or varices and CVP, Potential Prolonged Intubation, Potential ICU Admission Postop and Potential Multiple Transfusions Pain Management Plan: Parenteral or Oral ASA Class: 4 Other Medical Problems: CAD, DM2 Chronic Beta Radha medication administered within 24 hours: yes I have interviewed and examined the patient. I have reviewed the medical record and/or the pre-anesthesia evaluation, pertinent labs, and test results. Significant changes in the patient's condition since the History and Physical, not otherwise documented in primary service progress notes: No This contains updated information obtained within 48 hours of Surgery/Procedure. SIGNATURE: Lenny Chahal MD PATIENT NAME: Byron Ambriz DATE: February 18, 2018 TIME: 7:14 AM CSN: [id number] HEMOGRAM Collected: 02/18/2018 Status: F Source: [facility] 4:45 AM HEALTH SYSTEM REPOSITORY TYPE CODE TESTS RESULT OUT OF REFERENCE UNITS RANGE LAB WBC(LOINC) 4.23-9.07 thou/cmm WBC 5.17 LAB RBC(LOINC) 4.63-6.08 mil/cmm Low RBC 4.30 LAB HGB(LOINC) 13.7-17.5 g/dL Low Hgb 13.2 LAB HCT(LOINC) 40.1-51.0 % Low Hct 38.0 LAB MCV(LOINC) 83.2-95.6 fl MCV 88.4 LAB MCH(LOINC) 25.7-32.2 pg MCH 30.7 LAB MCHC(LOINC) 32.3-36.5 % MCHC 34.7 LAB RDW(LOINC) 11.6-14.4 % RDW 12.4 LAB RDWSD(LOINC 36.1-45.8 fl ) RDW SD 39.9 LAB PLT(LOINC) 141-365 thou/cmm Platelet 144 LAB MPV(LOINC) 8.7-12.0 fl MPV 9.8 Performed By: #### [id number] #### [place] [id number] BASIC PANEL Collected: 02/18/2018 Status: F Source: [facility] 4:45 AM HEALTH SYSTEM REPOSITORY TYPE CODE TESTS RESULT OUT OF REFERENCE UNITS RANGE LAB NA(LOINC) 136-145 mEq/L Sodium Blood 139 LAB K(LOINC) 3.5-5.1 mEq/L Potassium Blood 3.7 LAB CL(LOINC) 98-107 mEq/L Chloride High Blood 109 LAB CO2(LOINC) 21-32 mEq/L CO2 Blood 28 LAB GLU(LOINC) 70-99 mg/dL Glucose High Blood 125 LAB BUN(LOINC) 7-18 mg/dL BUN Blood 8 LAB CREA(LOINC 0.67-1.17 mg/dL ) Low Creatinine Blood 0.62 LAB CA(LOINC) 8.5-10.1 mg/dL Calcium Blood 8.5 LAB ANGAP(LOIN 8-16 C) Low Anion Gap 6 Performed By: #### P8 #### [place] [id number] MDRD GFR Collected: 02/18/2018 Status: F Source: [facility] 4:45 AM HEALTH SYSTEM REPOSITORY TYPE CODE TESTS RESULT OUT OF RANGE REFERENCE UNITS LAB GFRFN(LOINC >60mL/min/1.73m ) 2 eGFR >60 Result Comment: If the patient is , multiply the result by 1.210. Performed By: #### GFR #### [place] [id number] OPERATIVE NO Observed: 02/18/2018 Status: COMPLETED Source: [email or web address] 12:00 AM CLINIC OTHER CAMPUS REPOSITORY O ID: [id number] Author: Ty Chappell Service: Cardiac Surgery Author Type: Physician Type: Operative Report Filed: 02/19/2018 7:11 PM Note Text: [facility] - Operative Report SURGEON: Ty Chappell MD PATIENT NAME: BYRON AMBRIZ CSN: [id number] DATE OF SURGERY: 02/18/2018 DATE OF : 1955 SEX/AGE: M/62 PATIENT TYPE: I HOSP [facility]: CARD LOCATION: [id number] DATE OF SURGERY: 02/18/2018 SURGEON: Ty Chappell MD PREOPERATIVE DIAGNOSIS: Coronary artery disease and cwz-CK-ufqgoqwex myocardial infarction. POSTOPERATIVE DIAGNOSIS: Coronary artery disease and jts-ZX-zezgcraip myocardial infarction. PROCEDURES: Coronary bypass graft x4 with left internal mammary artery to left anterior descending; the free right internal mammary graft to the diagonal branch; reversed saphenous vein graft to the ramus intermedius branch and obtuse marginal branch; with endoscopic vein harvesting. BEAUTY ARTIST: Ms. Easton, Ms. Leal, and Ms. France. ANESTHESIA: Performed under general anesthesia. The cross-clamp time and the perfusion time are per the perfusion record. COMPLICATIONS: No complications. FINDINGS: Included normal left ventricle function pre and postoperatively. There is evidence of acute infarction of the proximal obtuse margin at the base in the distribution of the ramus intermedius branch. There were no complications. ESTIMATED BLOOD LOSS: 350 mL. INDICATIONS: This is a 62-year-old man who was recently diagnosed with coronary disease by cardiac catheterization when he was having anginal symptoms. He is re- referred for elective coronary bypass grafting. However, in week of admission he exerted heavily and suffered an rwd-HK-ewpkzqwwz myocardial infarction and was re- cath, and this showed an occluded LAD, chronic filling via clavf-oe-wrjk collaterals; a large diagonal branch with approximately 80% lesion at its origin; a moderate sized ramus branch or high diagonal branch, which had very severe long segment disease proximally; a large circumflex system with a bifurcating obtuse marginal with approximately 70% lesion in the origin of the more distal ramus of this branch; only moderate disease in right coronary. Left ventricular function was well preserved. We recommended myocardial revascularization. The procedure, the intended benefits, potential complications, and staff indications were discussed at length. All questions were answered. He understood and he consented to proceed. PROCEDURE IN DETAIL: A preoperative huddle was performed. He was brought to the operating room and placed on the operating table in supine position. Central venous and radial access were obtained. He was given general anesthesia, intubated. A RANDAL probe was placed. A Weaver catheter was placed. He was prepped and draped sterilely. He received perioperative IV antibiotics, beta-blockade, aspirin, IV heparin. A RANDAL confirmed normal LV function. No valvular abnormalities. A time-out was performed. A median sternotomy was made. The left and right internal mammary arteries were harvested as skeletonized graft. It had excellent pulsatile flow. The right internal mammary was taken as a free graft. The proximal and distal stumps being doubly clipped. Simultaneously, portions of the left greater saphenous vein were harvested in an endoscopic fashion, and the harvest sites closed in layers with absorbable suture. The sternal fourth grade teacher was placed on the wound. A pericardial wall was made. The ascending aorta was free of any palpable atherosclerotic disease. LV function appeared well preserved. There was evidence of acute infarction involving the basal obtuse margin in the distribution of the ramus branch. He was heparinized and cannulated for cardiopulmonary bypass via the aorta and right atrium. After an adequate ACT was achieved, cardiopulmonary bypass was initiated and ventilation was stopped. The root was vented. A retrograde cardioplegia cannula was placed in coronary sinus. A cross-clamp was applied and the heart was arrested with 1500 mL of combined antegrade and retrograde cold blood cardioplegia. Thereafter, a bolus of approximately 300 mL of combined antegrade and retrograde cold blood cardioplegia administered every 15-20 minutes. The aforementioned distal anastomoses were completed with running 7-0 Prolene suture end-to-side, proximal anastomosis constructed with running 6-0 Prolene suture end-to-side. The cross-clamp was then removed. The heart regained sinus rhythm. Ventilation was resumed. We then weaned from bypass and decannulated and reversed heparin with protamine. Graft flows were excellent on flow probe analysis with echo revealed normal left ventricular function. Right atrial pacing lead and ground lead were placed through the skin. A pacing was initiated. Bilateral pleural tubes and mediastinal tube were placed through the skin. Hemostasis was then obtained. The sternum was closed with wires. Pectoral fascia, subcutaneous tissues, and skin were closed in layers with absorbable suture. Dry sterile dressings were applied. Sponge counts and needle counts were correct. A sign-out was performed. He is to return to CVICU in good condition. Ty Chappell MD Cardiothoracic Surgery JAL:modl /[id number] GLUCOSE METER Collected: 02/17/2018 Status: F Source: [facility] 9:30 PM HEALTH SYSTEM REPOSITORY TYPE CODE TESTS RESULT OUT OF REFERENCE UNITS RANGE LAB GLUBL(LOINC 70-99 mg/dL ) Glucose Meter 99 Result Comment: RN NOTIFIED Performed By: #### GLMET #### [place] [id number] ACTIVATED PTT Collected: 02/17/2018 Status: F Source: [facility] 9:20 PM HEALTH SYSTEM REPOSITORY TYPE CODE TESTS RESULT OUT OF REFERENCE UNITS RANGE LAB APTT(LOINC 22.0-34.0 sec ) High Activated PTT 62.9 Performed By: #### APTT #### [address] [address] GLUCOSE METER Collected: 02/17/2018 Status: F Source: [facility] 4:37 PM HEALTH SYSTEM REPOSITORY TYPE CODE TESTS RESULT OUT OF REFERENCE UNITS RANGE LAB GLUBL(LOINC 70-99 mg/dL ) High Glucose Meter 106 Performed By: #### GLMET #### [place] [address] NURSING PROG Observed: 02/17/2018 Status: COMPLETED Source: [place] 4:16 PM CLINIC OTHER CAMPUS REPOSITORY HNO ID: [id number] Author: Sherry Short (Rn), RN Service: Nursing Author Type: Registered Nurse Type: Nursing Progress Note Filed: 02/17/2018 4:17 PM Note Text: Page out to Dr. Rachel daniel patient's change in surgery time URINALYSIS, REFLEX Collected: 02/17/2018 Status: F Source: [facility] 3:30 PM HEALTH SYSTEM REPOSITORY TYPE CODE TESTS RESULT OUT OF REFERENCE UNITS RANGE LAB COLOR(LOIN C) Urine Color YELLOW LAB APPUR(LOIN C) Urine Appearance CLEAR LAB GLUUR(LOIN Negative mg/dL C) Glucose Urine NEGATIVE LAB KETON(LOIN Negative mg/dL C) Ketone Urine NEGATIVE LAB HGBUR(LOIN Negative C) Hemoglobin,Urine NEGATIVE LAB PROTU(LOIN Negative mg/dL C) Protein Urine NEGATIVE LAB NITR(LOINC Negative ) Nitrite reflex NEGATIVE LAB BILIU(LOIN Negative C) Bilirubin Urine NEGATIVE LAB SPG(LOINC) 1.005-1.030 Specific [place], Ur 1.007 LAB PHUR(LOINC 5.0-8.0 ) pH,Urine 7.0 LAB UROBI(LOIN 0.0-1.0 EU/dL C) Urobilinogen,Ur 0.2 LAB LEUKR(LOIN Negative C) Leukocyte NEGATIVE esterase LAB RBCU1(LOIN 0.0-5.0 /hpf C) RBC,Urine 1.8 LAB WBCR(LOINC 0.00-5.00 /hpf ) WBC, reflex 0.30 LAB EPIT1(LOIN 0.0-5.0 /hpf C) Ep Cells Urine 0.0 LAB BACT1(LOIN None C) Bacteria Urine NONE LAB HYCA1(LOIN 0.0-1.0 /lpf C) Hyaline Cast 0.0 LAB REFLX(LOIN C) Reflex Comment see below Result Comment: Reflex to culture is not indicated based on established laboratory criteria. Performed By: #### URIN #### [address] [address] ACTIVATED PTT Collected: 02/17/2018 Status: F Source: [facility] 2:25 PM [facility] SYSTEM REPOSITORY TYPE CODE TESTS RESULT OUT OF REFERENCE UNITS RANGE LAB APTT(LOINC 22.0-34.0 sec ) High Activated PTT 42.9 Performed By: #### APTT #### [place] [address] TYPE AND SCREEN Collected: 02/17/2018 Status: F Source: [facility] 2:25 PM HEALTH SYSTEM REPOSITORY TYPE CODE TESTS RESULT OUT OF REFERENCE UNITS RANGE LAB ABO(LOINC) O ABO Group LAB APPOINTMENT MANAGER(LOINC ) RH Type Negative LAB ABSCR(LOIN C) Antibody NEGATIVE Screen LAB BBCMT(LOIN C) Comment See Below Result Comment: Screen &/or Xmatch expires in 3 days at 12 midnight. Redraw patient at that time. Performed By: #### T&S #### [facility] [address] [place] [address] RBC PRODUCTS Collected: 02/17/2018 Status: F Source: [facility] 2:25 PM HEALTH SYSTEM REPOSITORY TYPE CODE TESTS RESULT OUT OF REFERENCE UNITS RANGE LAB UNIT1(LOINC ) Xmatch Unit 1 see below Result Comment: Compatible LAB UNIT2(LOINC) Xmatch Unit 2 see below Result Comment: Compatible Performed By: #### RBCPS #### [facility] [address] [place] [address] CHEST 2 VIEWS Observed: 02/17/2018 Status: F Source: [facility] 2:01 PM HEALTH SYSTEM REPOSITORY Performed at [facility] APPROVED BY: Nicolas Taylor MD EXAMINATION: CHEST RADIOGRAPH (2 VIEW FRONTAL & LATERAL) Clinical History: Coronary artery disease MQ: [id number]_5 Comparison: None RESULT: Lines, tubes, and devices: None. Lungs and pleura: No consolidation. No lung mass. No pleural effusion. Cardiomediastinal silhouette: Normal cardiomediastinal silhouette. Other: None IMPRESSION: No acute radiographic abnormality. Observed: 02/17/2018 Status: F Source: [facility] MRSA SCREEN 1:00 PM HEALTH SYSTEM REPOSITORY Test performed at [facility] No MRSA detected. Performed By: #### MRSA #### [facility] [address] [place] [address] GLUCOSE METER Collected: 02/17/2018 Status: F Source: [facility] 11:52 AM HEALTH SYSTEM REPOSITORY TYPE CODE TESTS RESULT OUT OF REFERENCE UNITS RANGE LAB GLUBL(LOINC 70-99 mg/dL ) High Glucose Meter 217 Performed By: #### GLMET #### [facility] [address] [place] [address] CONSULT PROG Observed: 02/17/2018 Status: COMPLETED Source: [place] 10:52 AM CLINIC OTHER CAMPUS REPOSITORY HNO ID: [id number] Author: Diana Garnica (Manager Acquisition), REFINERY OPERATOR [employer] Service: Cardiovascular Surgery Author Type: Nurse Practitioner Type: Consult Progress Note Filed: 02/18/2018 12:22 PM Note Text: [facility] Surgery Pre-Op Open Heart Check List Patient Info: Byron Jaycob Ambriz 1955 62 year old Patient has no known allergies. Last set of vitals: Wt: 77.6 kg (171 lb) BMI: 26.39 kg/(m2) BP 131/85 Pulse 71 Temp 37 ?C (98.6 ?F) Resp 19 Ht 167.6 cm (5' 6) Wt 75.1 kg (165 lb 9.1 oz) SpO2 97% BMI 26.72 kg/m? Wt: 77.6 kg (171 lb) BMI: 26.39 kg/(m2) Procedure:CABG Diagnosis: MV CAD, NSTEMI Date of Procedure: 02/18 PM STS Risk Score: 0.414% w/o Echo CARE TEAM: Pump Erector Helper: Dr. Louis PCP: Dr. Arias Other provider: Dr. Chappell Pre-Op Testing: LABS: CBC, CMP, Mg, PT/INR, UA Recent Labs 02/17/18 0430 02/16/18 2230 02/16/18 1700 HBA1C -- -- 6.5* RBC 4.27* -- 4.59* WBC 6.16 -- 9.13* HB 13.2* -- 14.2 HCT 38.4* -- 41.2 PLT 142 -- 179 INR -- -- 1.00 APTT 106.9* 46.0* 57.4* NA 141 -- 141 K 3.5 -- 3.3* CHLOR 108* -- 107 CO2 27 -- 29 BUN 8 -- 7 CREAT 0.66* -- 0.57* GLUC 123* -- 116* CA 8.3* -- 8.9 MG -- -- 1.9 TPROT -- -- 6.6 TBILI -- -- 0.4 ALKPHOS -- -- 69 ALT -- -- 30 AST -- -- 83* ANION 10 -- 8 HGB (g/dL) Date Value 02/17/2018 13.2 Hematocrit (%) Date Value 02/17/2018 38.4 WBC (thou/cmm) Date Value 02/17/2018 6.16 Platelet Count (thou/cmm) Date Value 02/17/2018 142 Chemistry Glucose (mg/dL) Date Value 02/17/2018 123 Potassium (mEq/L) Date Value 02/17/2018 3.5 Sodium (mEq/L) Date Value 02/17/2018 141 Chloride (mEq/L) Date Value 02/17/2018 108 CO2 (mEq/L) Date Value 02/17/2018 27 Creatinine (mg/dL) Date Value 02/17/2018 0.66 BUN (mg/dL) Date Value 02/17/2018 8 Anion Gap (no units) Date Value 02/17/2018 10 Calcium (mg/dL) Date Value 02/17/2018 8.3 Protein, Total (g/dL) Date Value 02/16/2018 6.6 Albumin (g/dL) Date Value 02/16/2018 3.9 Bilirubin, Total (mg/dL) Date Value 02/16/2018 0.4 Alkaline Phosphatase (U/L) Date Value 02/16/2018 69 AST (U/L) Date Value 02/16/2018 83 ALT (U/L) Date Value 02/16/2018 30 [facility] Recent Labs 02/17/18 0430 02/16/18 2230 02/16/18 1700 APTT 106.9* 46.0* 57.4* INR -- -- 1.00 UA Urinalysis Results for BYRON AMBRIZ ( ) as of 02/18/2018 12:19 Ref. Range 02/17/2018 15:30 Color Unknown YELLOW Specific [place], Ur Latest Ref Range: 1.005 - 1.030 1.007 pH, Urine Latest Ref Range: 5.0 - 8.0 7.0 Protein, Urine Latest Ref Range: Negative mg/dL NEGATIVE Glucose, Urine Latest Ref Range: Negative mg/dL NEGATIVE Ketones, Urine Latest Ref Range: Negative mg/dL NEGATIVE Bilirubin, Urine Latest Ref Range: Negative NEGATIVE Urobilinogen, Urine Latest Ref Range: 0.0 - 1.0 EU/dL 0.2 RBC, Urine Latest Ref Range: 0.0 - 5.0 /hpf 1.8 EP Cells Urine Latest Ref Range: 0.0 - 5.0 /hpf 0.0 Hemoglobin, Urine Latest Ref Range: Negative NEGATIVE Bacteria, Urine Latest Ref Range: None NONE Hyaline Cast Latest Ref Range: 0.0 - 1.0 /lpf 0.0 Leukocytes Esterase Latest Ref Range: Negative NEGATIVE Nitrite Reflex Latest Ref Range: Negative NEGATIVE Urine Appearance Unknown CLEAR WBC, REFLEX Latest Ref Range: 0.00 - 5.00 /hpf 0.30 Type AND Cross Results for BYRON AMBRIZ ( ) as of 02/18/2018 12:19 Ref. Range 02/17/2018 14:25 Antibody Screen Unknown NEGATIVE ABO Group Unknown O RH Type Unknown Negative Xmatch Unit 1 Unknown see below Xmatch Unit 2 Unknown see below MRSA Screen:Negative HGA1C Lab Results Component Value Date HBA1C 6.5 02/16/2018 HBA1C 6.6 11/27/2017 HBA1C 6.0 05/28/2017 PFT/ABG: pending FEVI: ABG: Recent Labs 02/17/18 0430 CO2 27 IMAGING/PROCEDURES CXR 02/17: Lungs and pleura: ?No consolidation. No lung mass. No pleural effusion. ? Cardiomediastinal silhouette: ?Normal cardiomediastinal silhouette. ? Other: ?None Cardiac Catheterization 01/23 (per note from antonella) : [facility], 01/23: left main- normal LAD: SALES AGENT FINANCIAL REPORT SERVICE of mid LAD, 1st diagonal 80% occlusion, 2 nd diagonal 80% stenosis LCX: OM3: proximal 50% stenosis, LT PDA- proximal 60% stenosis RCA: mild luminal irregularities, RT PDA: distal 50% stenosis 2D Echo 02/18: Left Ventricle Normal left ventricular size and systolic function. No regional wall motion abnormalities. LVEF is 50% by Biplane Modified Madrigal's Method and 55-60% by visual estimation. Normal left ventricular wall thickness. Stage I diastolic dysfunction: Abnormal relaxation with normal filling pressures. Right Ventricle Normal right ventricular size and systolic function. Left Atrium The left atrium appears normal in size. DANG is 27.32 ml/m2. Right Atrium The right atrium appears normal in size. The right atrium measures 14 cm2 by planimetry in the apical 4-chamber view. Mitral Valve Structurally normal mitral valve with trivial mitral regurgitation. Aortic Valve The aortic valve is structurally normal and trileaflet, without evidence of stenosis or regurgitation. Tricuspid Valve Structurally normal tricuspid valve with trivial tricuspid regurgitation. No evidence of pulmonary hypertension. Pulmonic Valve The pulmonic valve is structurally normal with trivial pulmonic regurgitation. Ascending Aorta The ascending aorta appears normal in size. Pericardium No evidence of pericardial effusion. Cardiac Shunt There is no evidence of interatrial shunting by color Doppler. Vena Cava The inferior vena cava is normal in size and collapses (>50%) with inspiration. 5 Meter Walk Test: pending Carotid U/S 02/18: On the?basis noninvasive vascular study, by velocity criteria, there is a 50-69% stenosis of the right internal carotid artery. ?This could be mildly artificially elevated secondary to tortuosity. ?There is a less than 50% stenosis of the left internal carotid artery. ?The vertebral arteries are antegrade. OPTIONAL TESTINGS: Lower EXT JENSEN: N/A Palmar Arch: N/A Vein Mapping: N/A Dental Clearance: N/A CT Chest: N/A Medications Notes: Blood thinners: Patient is on following blood thinners: Aspirin -Yes, dose 81 mg, stopped No, date: TO BE TAKEN ON DOS Beta Radha: Last dose of beta radha taken: Coreg 3.125 BID, to be taken on DOS. Perioperative Transfusion risk, low Preioperative Wound Healing: risk factor include: DM CLEARANCES NEEDED Pulmonary: No GI: No Hematology: No Other: No Diana Garnica APRN.PHYSICIAN ASSISTANT PSYCHIATRY CONSULT Observed: 02/17/2018 Status: COMPLETED Source: [place] 10:41 AM CLINIC OTHER CAMPUS REPOSITORY [facility] ID: [id number] Author: Ty Chappell Service: Cardiac Surgery Author Type: Physician Type: Consults Filed: 02/17/2018 10:49 AM Note Text: CARDIOTHORACIC SURGERY CONSULT / HANDP SERVICE DATE: 02/17/2018 SERVICE TIME: 10:41 AM Subjective PRIMARY SERVICE: Cardiothoracic Surgery CHIEF COMPLAINT: cad, nstemi HPI: This is a 62 year old male who presents a recent history of exertional angina. Stress test was positive 12/18/17:+ reversible anteroseptal and apical ischemia with EF of 60%. . Cardiac cath at [facility] shows severe MV CAD including left main- normal LAD: SALES AGENT FINANCIAL REPORT SERVICE of mid LAD, 1st diagonal 80% occlusion, 2 nd diagonal 80% stenosis LCX: OM3: proximal 50% stenosis, LT PDA- proximal 60% stenosis RCA: mild luminal irregularities, RT PDA: distal 50% stenosis ? He was referred for outpatient cardiac surgery eval. Sunday he lifted bags of mulch resulting in persisting chest pressure. He presented Sunday with NSTEMI, troponin 14.Currently pain free on heparin. Risk factors for CAD include DM and HTN, +FH in brother. No history of other vascula disease such as CVA, lower extremity disease, or renal insufficiency. Patient is Able to Perform the Following Physical Activity: Do yardwork, such as raking leaves, weeding,or pushing a power mower (4.50 METs) Patient has the following medical comorbidities which might affect the perioperative course: - Type II Diabetes with no complications. Patient is on oral medications. - Hypertension, well controlled. PAST MEDICAL HISTORY Diagnosis Date - Abnormal cardiovascular stress test - CAD (coronary artery disease) - Chest pain - Dyspnea - GERD (gastroesophageal reflux disease) - Hemorrhage of gastrointestinal tract, unspecified - Internal hemorrhoids without mention of complication - Other convulsions none since 1975 - Pancreatitis - Seizures (HCC) - Type 2 diabetes mellitus with hyperglycemia (HCC) PAST SURGICAL HISTORY Procedure Laterality Date - COLONOSCOP W/ OR W/O [facility] SPEC 04/15/08 - LAP CHOLECYSTECT/CHOLANGIOGRAPHY FAMILY HISTORY Problem Relation Age of Onset - Hypertension Mother - Heart Brother - Lipids Brother Social History Substance Use Topics - Smoking status: Never Smoker - Smokeless tobacco: Former User Types: Chew - Alcohol use Yes Comment: 1x/month beer Prescriptions Prior to Admission: pantoprazole DR (PROTONIX) 40 mg tablet Disp: Rfl: 02/15/2018 at Unknown time metFORMIN ER (GLUCOPHAGE XR) 500 mg 24 hr tablet Take 2 tablets by mouth twice daily. Disp: 360 tablet Rfl: 1 02/15/2018 at Unknown time phenytoin ER (DILANTIN) 100 mg ER capsule Disp: Rfl: 02/15/2018 at Unknown time ASPIRIN ORAL Take by mouth. Disp: Rfl: 02/16/2018 at Unknown time DOCOSAHEXANOIC ACID/EPA (FISH OIL ORAL) Take by mouth. Disp: Rfl: 02/16/2018 at Unknown time MULTIVITAMIN TAB Take one(1) tablet daily. Disp: Rfl: 0 02/15/2018 at Unknown time pantoprazole DR (PROTONIX) 40 mg tablet metFORMIN ER (GLUCOPHAGE XR) 500 mg 24 hr tablet Take 2 tablets by mouth twice daily. phenytoin ER (DILANTIN) 100 mg ER capsule ASPIRIN ORAL Take by mouth. DOCOSAHEXANOIC ACID/EPA (FISH OIL ORAL) Take by mouth. MULTIVITAMIN TAB Take one(1) tablet daily. ALLERGIES No Known Allergies REVIEW OF SYSTEMS: PAIN ASSESSMENT: Negative for pain, history of chronic pain, or current treatment for a chronic pain condition. GENERAL: No weight loss, malaise or fevers HEENT: Negative for frequent or significant headaches, No changes in hearing or vision, no nose bleeds or other nasal problems NECK: Negative for lumps, goiter, pain and significant neck swelling RESPIRATORY: Negative for cough, wheezing or shortness of breath. CARDIOVASCULAR: Positive for chest pain on exertion see above GI: Negative for abdominal discomfort, blood in stools or black stools or change in bowel habits : No history of dysuria, frequency or incontinence MUSCULOSKELETAL: Negative for joint pain or swelling, back pain or muscle pain. SKIN: Negative for lesions, rash, and itching. PSYCH: Negative for sleep disturbance, mood disorder and recent psychosocial stressors. HEMATOLOGY/LYMPHOLOGY Negative for prolonged bleeding, bruising easily or swollen nodes. ENDOCRINE: Positive for See HPI NEURO: No history of headaches, syncope, paralysis, seizures or tremors Objective PHYSICAL EXAM: BP 131/85 Pulse 71 Temp 37 ?C (98.6 ?F) Resp 19 Ht 167.6 cm (5' 6) Wt 75.1 kg (165 lb 9.1 oz) SpO2 97% BMI 26.72 kg/m? Body surface area is 1.87 meters squared. STS RISK CALCULATOR: pending STS Calculator On examination, he appears well and is breathing comfortably. Vitals signs are BP 131/85 Pulse 71 Temp 37 ?C (98.6 ?F) Resp 19 Ht 167.6 cm (5' 6) Wt 75.1 kg (165 lb 9.1 oz) SpO2 97% BMI 26.72 kg/m? . There is no JVD. No cervical or supraclavicular adenopathy is palpated. The chest is symmetrical without deformity. Breath sounds are clear bilaterally. The cardiac rhythm is regular. There are no rubs, gallops, or murmurs. The carotid, subclavian, DP and radial pulses are 2+ and equal bilaterally. There are no bruits. The abdomen is soft and non-tender. There are no abdominal masses. There is no hepatojugular reflux. There is no pretibial edema. There is no clubbing or cyanosis. Lines, Drains, and Airways Line Peripheral 02/16/18 1100 Assessment Short Left Antecubital 20 Gauge less than 1 day Peripheral 02/16/18 1100 Assessment Short Right Wrist 22 Gauge less than 1 day @LDAASSESS(2::::8:)@ DATA: Diagnostic tests reviewed for today's visit: Significant Lab Results: see HPI and below. see below Recent Labs 02/17/18 0430 02/16/18 2230 02/16/18 1700 HBA1C -- -- 6.5* RBC 4.27* -- 4.59* WBC 6.16 -- 9.13* HB 13.2* -- 14.2 HCT 38.4* -- 41.2 PLT 142 -- 179 INR -- -- 1.00 APTT 106.9* 46.0* 57.4* NA 141 -- 141 K 3.5 -- 3.3* CHLOR 108* -- 107 CO2 27 -- 29 BUN 8 -- 7 CREAT 0.66* -- 0.57* GLUC 123* -- 116* CA 8.3* -- 8.9 MG -- -- 1.9 TPROT -- -- 6.6 TBILI -- -- 0.4 ALKPHOS -- -- 69 ALT -- -- 30 AST -- -- 83* ANION 10 -- 8 Assessment/Plan MV CAD, NSTEMI I agree with the recommendation for MV CABG, targets to include LAD, diag, and OM. The risks, benefits, and anticipated outcomes of the procedure; the risks and benefits of the alternatives to the procedure; and the roles and tasks of the personnel to be involved were discussed with the patient and he consents to the procedure and agrees to proceed. In preparation for surgery carotid duplex, 2D echocardiogram and MRSA screen will be obtained. Surgery is scheduled for 02/18. Tests/Labs Ordered: 1. Echocardiogram 2. MRSA screen 3. carotid The risks, benefits, and anticipated outcomes of the procedure; the risks and benefits of the alternatives to the procedure; and the roles and tasks of the personnel to be involved were discussed with the patient and he consents to the procedure and agrees to proceed. These findings will be communicated back to the requesting provider electronically. SIGNATURE: Ty Chappell MD PATIENT NAME: Byron Ambriz DATE: February 17, 2018 TIME: 10:41 AM PAGER/CONTACT #: [phone] PROGRESS Observed: 02/17/2018 Status: COMPLETED Source: [place] 8:13 AM [facility] REPOSITORY O ID: [id number] Author: Radames Romero Service: Cardiovascular Medicine Author Type: Physician Type: Progress Notes Filed: 02/17/2018 12:36 PM Note Text: CVICU PROGRESS NOTE SERVICE DATE: 02/17/2018 SERVICE TIME: 8:14 AM PRIMARY SERVICE: CVICU Subjective CHIEF COMPLAINT: Chest pain INTERVAL HPI: Patient is a 62 year old male with h/o seizure and NIDDM, type 2, on metformin , recently diagnosed with MV CAD, the pt had appointment with Dr. chappell on 02/20/18 for possible CABG. Per the pt he was lifting heaving stuff on 02/15 and started having retrosternal chest pain, dull/aching , non radiating , was about 5-6/10, constant, was not associated with diaphoresis, SOB, dizziness, n/v, palpitations. The pain remained constant and took about 2 ASA at 7 pm and then 2 more at 11 pm and didn't help much with the pain. He couldn't sleep all night and this am Continued to have CP and hence decided [facility] for further evaluation. In the [facility] ED on 02/16, the patient was given SL nitro and a nitro patch was put. Currently his pain now is 1-2/10. EKG doesn't show any significant ST/T changes and the troponin is 13.90 at [facility]. Off note pt is having CP on exertion since Oct 2017, initially thought dyspepsia, PPI didn't help him. He has a enlisted advisor at [facility], Dr. Lopes. Had a initial stress test on 12/18/17, + reversible anteroseptal and apical ischemia with EF of 60%. Later had a LHC, 01/23, with results as follows: LHC 01/23: Left main- normal LAD: [employer] of mid LAD, 1st diagonal 80% occlusion, 2 nd diagonal 80% stenosis LCX: OM3: proximal 50% stenosis, LT PDA- proximal 60% stenosis RCA: mild luminal irregularities, RT PDA: distal 50% stenosis The patient was started on a nitro and heparin gtt and CT surgery was consulted for possible CABG. The patient had no acute overnight events. The patient was seen and examined this AM. The patient stated that he was feeling some slight chest pressure, 1/10 on the pain scale, with no shortness of breath. Patient has no family members with cardiac events before age 50 but he does have a brother who recently had stents placed. Current hospital medications: phenytoin ER 100 mg cap(s) (DILANTIN) 100 mg ORAL DAILY 0.9% NaCl 2-10 mL 2-10 mL INTRAVENOUS q 12 H nitroglycerin sublingual 0.4 mg tab(s) (NITROQUICK) 0.4 mg SUBLINGUAL q 5 MIN PRN atropine 0.4 mg injection 0.4 mg INTRAVENOUS PRN(NO DISPENSE) aspirin, enteric coated 81 mg tab(s) (ASPIRIN, ENTERIC COATED) 81 mg ORAL DAILY atorvastatin 80 mg tab(s) (LIPITOR) 80 mg ORAL AT BEDTIME heparin iv infusion (LOW DOSE ACS/NOMOGRAM) 25,000 units in NaCl 0.45% 250 mL PREMIX 0-3,000 Units/hr INTRAVENOUS CONTINUOUS heparin RATE CHANGE bolus 1,000-4,000 Units for subtherapeutic aptt results 1,000-4,000 Units INTRAVENOUS PRN carvedilol 3.125 mg tab(s) (COREG) 3.125 mg ORAL BID w MEALS dextrose 40 % 15 g 15 g ORAL PRN glucagon 1 mg injection (GLUCAGEN) 1 mg INTRAMUSCULAR PRN dextrose 50% in water 25 mL syringe 12.5 g INTRAVENOUS PRN insulin lispro pen (rapid acting) (HumaLOG KWIKPEN) SUBCUTANEOUS q 6 H NaCl 0.9% iv infusion 75 mL/hr INTRAVENOUS CONTINUOUS nitroglycerin 100 mg in D5W 250 mL 5-200 mcg/min INTRAVENOUS CONTINUOUS acetaminophen 650 mg tab(s) (TYLENOL) 650 mg ORAL q 4 H PRN Objective PHYSICAL EXAM: BP 125/76 Pulse 67 Temp (Src) 98.6 (Tympanic) Resp 16 Ht 5' 6 (1.68m) Wt 165 lb 9.1 oz (75.1kg) SpO2 97% BMI 26.74 kg/(m2). Physical Exam Performed PHYSICAL EXAMINATION: General appearance: Well appearing, alert, in no acute distress, well-hydrated, well nourished. Skin: Skin color, texture, turgor normal, no suspicious rashes or lesions Head: Normocephalic, no masses, lesions, tenderness or abnormalities Eyes: Anicteric sclera. Pupils are equally round and reactive to light. Extraocular movements are intact. Ears: External ears normal, canals clear Nose/Sinuses: Nares normal, septum midline, mucosa normal, no drainage or sinus tenderness Oropharynx: Lips, mucosa, and tongue normal, teeth and gums normal, oropharynx normal Neck: Supple, no adenopathy; thyroid symmetric, normal size, no bruits Back: Normal exam Lungs: Lungs clear to auscultation. No wheezing, rhonchi, rales Heart: RRR without murmur, gallop, or rubs. No ectopy Abdomen: Normal abdominal exam, Abdomen soft, non-tender. Bowel sounds normal. No masses, organomegaly Extremities: No deformities, edema, skin discoloration, clubbing or cyanosis. Good capillary refill. Musculoskeletal: No joint swelling, deformity, or tenderness Peripheral pulses: Normal Neuro: Oriented X 3 DATA: Diagnostic tests reviewed for today's visit: Most recent labs and imaging results. Recent Labs 02/17/18 0430 02/16/18 2230 02/16/18 1700 TROPI -- 12.400* 14.800* WBC 6.16 -- 9.13* RBC 4.27* -- 4.59* HB 13.2* -- 14.2 HCT 38.4* -- 41.2 MCV 89.9 -- 89.8 PLT 142 -- 179 GLUC 123* -- 116* BUN 8 -- 7 CREAT 0.66* -- 0.57* NA 141 -- 141 K 3.5 -- 3.3* CHLOR 108* -- 107 CO2 27 -- 29 TPROT -- -- 6.6 ALB -- -- 3.9 CA 8.3* -- 8.9 ALKPHOS -- -- 69 TBILI -- -- 0.4 AST -- -- 83* ALT -- -- 30 PTSEC -- -- 10.6 APTT 106.9* 46.0* 57.4* INR -- -- 1.00 MG -- -- 1.9 Miscellaneous Tests: Lipid Panel: Cholesterol- 119, TG- 78, HDL- 48, LDL- 55 Troponin: 14.8--> 12.4--> HgbA1c: 6.5 Cardiovascular: 02/15 Exercise Stress Test: Evidence of distal anteroseptal and apical ischemia. Small apical infarct noted. 02/15 EKG: suggestive of inferior infarct 02/15 Cardiac Cath: Totally occluded LAD with severe disease involving first and second diagonal branches and moderate disease involving the circumflex artery. Preserved EF. Assessment/Plan 1. NSTEMI type 1 s/p [facility] 01/23 - ASA 81mg daily - Atorvastatin 80mg daily - Coreg 3.125mg BID - Heparin gtt - Nitro gtt - Trend troponins - TTE pending - EKG no change ? 2. T2DM - SSI ? 3. HTN - Coreg 3.125mg BID ? 4. Multivessel CAD- involving the LAD, LCx and mild disease in RCA - will consult Dr. Chappell for further recommendation on CABG - will cont with medical management. ? 5. DVT PPX: scds, heparin SIGNATURE: Chris العلي MD PATIENT NAME: Byron Ambriz DATE: February 17, 2018 TIME: 8:14 AM PAGER: [phone] I performed a history and physical examination of the patient and discussed the management with the resident. I reviewed the resident's note and agree with the documented findings and plan of care. NTG gtt could be weaned off. For CABG tomorrow, d/w Dr Chappell. Trops trended down. Echo in AM. Critical Care Documentation: The patient has the following organ/system impairment(s): *Acute coronary syndrome with probability of significant deterioration, myocardial ischemia and life threatening ventricular arrhythmias. This patient has a high probability of sudden, clinically significant deterioration, which requires the highest level of physician preparedness to intervene urgently. I managed/supervised life or organ supporting interventions that required frequent physician assessment. I devoted my full attention to the direct care of this patient for the amount of time indicated below. Time I spent with family or surrogate(s) is included only if the patient was incapable of providing the necessary information or participating in medical decision making. Time devoted to teaching is not included. ?? Time spent providing critical care services: 40 minutes excluding procedures. Radames Romero MD GLUCOSE METER Collected: 02/17/2018 Status: F Source: [facility] 8:06 AM HEALTH SYSTEM REPOSITORY TYPE CODE TESTS RESULT OUT OF REFERENCE UNITS RANGE LAB GLUBL(LOINC 70-99 mg/dL ) High Glucose Meter 137 Performed By: #### GLMET #### [place] [id number] HEMOGRAM Collected: 02/17/2018 Status: F Source: [facility] 4:30 AM HEALTH SYSTEM REPOSITORY TYPE CODE TESTS RESULT OUT OF REFERENCE UNITS RANGE LAB WBC(LOINC) 4.23-9.07 thou/cmm WBC 6.16 LAB RBC(LOINC) 4.63-6.08 mil/cmm Low RBC 4.27 LAB HGB(LOINC) 13.7-17.5 g/dL Low Hgb 13.2 LAB HCT(LOINC) 40.1-51.0 % Low Hct 38.4 LAB MCV(LOINC) 83.2-95.6 fl MCV 89.9 LAB MCH(LOINC) 25.7-32.2 pg MCH 30.9 LAB MCHC(LOINC) 32.3-36.5 % MCHC 34.4 LAB RDW(LOINC) 11.6-14.4 % RDW 12.5 LAB RDWSD(LOINC 36.1-45.8 fl ) RDW SD 41.1 LAB PLT(LOINC) 141-365 thou/cmm Platelet 142 LAB MPV(LOINC) 8.7-12.0 fl MPV 9.9 Performed By: #### CBC1 #### [place] [id number] ACTIVATED PTT Collected: 02/17/2018 Status: F Source: [facility] 4:30 AM HEALTH SYSTEM REPOSITORY TYPE CODE TESTS RESULT OUT OF REFERENCE UNITS RANGE LAB APTT(LOINC 22.0-34.0 sec ) High alert Activated PTT 106.9 Performed By: #### APTT #### [facility] [address] [place] [id number] LIPID PROFILE Collected: 02/17/2018 Status: F Source: [facility] 4:30 AM HEALTH SYSTEM REPOSITORY TYPE CODE TESTS RESULT OUT OF REFERENCE UNITS RANGE LAB CHOL(LOINC 0-199 mg/dL ) Cholesterol Blood 119 Result Comment: <200 Desirable 200-240 Borderline >240 High LAB TRIG(LOINC) 0-149 mg/dL Triglyceride Blood 78 Result Comment: < 200 Desirable Result invalid if not a fasting specimen. LAB HDL2(LOINC) >40 mg/dL HDL Cholesterol 48 LAB CHHDL(LOINC) 2.1-7.3 CHOL/HDL 2.5 LAB LDL(LOINC) mg/dL LDL (Calculated) 55 Result Comment: No CAD and with fewer than 2 CAD risk factors <160 mg/dL No CAD but with 2 or more CAD risk factors <130 mg/dL Definite CAD or other atherosclerotic disease <100 mg/dL LAB VLDL(LOINC) <50 Desired mg/dL VLDL Cholesterol 16 LAB LDHDL(LOINC) 1.1-4.8 LDL/HDL 1.1 Result Comment: LDL,VLDL,LDL/HDL, Invalid if Triglyceride >400 Performed By: #### LIPD2 #### [facility] [address] [place] [address] BASIC PANEL Collected: 02/17/2018 Status: F Source: [facility] 4:30 HEALTH SYSTEM REPOSITORY TYPE CODE TESTS RESULT OUT OF REFERENCE UNITS RANGE LAB NA(LOINC) 136-145 mEq/L Sodium Blood 141 LAB K(LOINC) 3.5-5.1 mEq/L Potassium Blood 3.5 LAB CL(LOINC) 98-107 mEq/L Chloride High Blood 108 LAB CO2(LOINC) 21-32 mEq/L CO2 Blood 27 LAB GLU(LOINC) 70-99 mg/dL Glucose High Blood 123 LAB BUN(LOINC) 7-18 mg/dL BUN Blood 8 LAB CREA(LOINC 0.67-1.17 mg/dL ) Low Creatinine Blood 0.66 LAB CA(LOINC) 8.5-10.1 mg/dL Low Calcium Blood 8.3 LAB ANGAP(LOIN 8-16 C) Anion Gap 10 Performed By: #### P8 #### [facility] [address] [place] [address] MDRD GFR Collected: 02/17/2018 Status: F Source: [facility] 4:30 AM HEALTH SYSTEM REPOSITORY TYPE CODE TESTS RESULT OUT OF RANGE REFERENCE UNITS LAB GFRFN(LOINC >60mL/min/1.73m ) 2 eGFR >60 Result Comment: If the patient is , multiply the result by 1.210. Performed By: #### GFR #### [facility] [address] [place] [address] ACTIVATED PTT Collected: 02/16/2018 Status: F Source: [facility] 10:30 PM HEALTH SYSTEM REPOSITORY TYPE CODE TESTS RESULT OUT OF REFERENCE UNITS RANGE LAB APTT(LOINC 22.0-34.0 sec ) High Activated PTT 46.0 Performed By: #### APTT #### [facility] [address] [place] [address] TROPONIN I Collected: 02/16/2018 Status: F Source: [facility] 10:30 PM HEALTH SYSTEM REPOSITORY TYPE CODE TESTS RESULT OUT OF REFERENCE UNITS RANGE LAB TROP(LOINC) 0.015-0.045 ng/ml High alert Troponin I 12.400 Performed By: #### TROP #### [facility] [address] [place] [address] HEMOGRAM Collected: 02/16/2018 Status: F Source: [facility] 5:00 PM HEALTH SYSTEM REPOSITORY TYPE CODE TESTS RESULT OUT OF REFERENCE UNITS RANGE LAB WBC(LOINC) 4.23-9.07 thou/cmm High WBC 9.13 LAB RBC(LOINC) 4.63-6.08 mil/cmm Low RBC 4.59 LAB HGB(LOINC) 13.7-17.5 g/dL Hgb 14.2 LAB HCT(LOINC) 40.1-51.0 % Hct 41.2 LAB MCV(LOINC) 83.2-95.6 fl MCV 89.8 LAB MCH(LOINC) 25.7-32.2 pg MCH 30.9 LAB MCHC(LOINC) 32.3-36.5 % MCHC 34.5 LAB RDW(LOINC) 11.6-14.4 % RDW 12.6 LAB RDWSD(LOINC 36.1-45.8 fl ) RDW SD 40.4 LAB PLT(LOINC) 141-365 thou/cmm Platelet 179 LAB MPV(LOINC) 8.7-12.0 fl MPV 10.3 Performed By: #### CBC1 #### [facility] [address] [place] [address] ACTIVATED PTT Collected: 02/16/2018 Status: F Source: [facility] 5:00 HEALTH SYSTEM REPOSITORY TYPE CODE TESTS RESULT OUT OF REFERENCE UNITS RANGE LAB APTT(LOINC 22.0-34.0 sec ) High Activated PTT 57.4 Performed By: #### APTT #### [facility] [address] [place] [address] PROTIME Collected: 02/16/2018 Status: F Source: [facility] 5:[facility] REPOSITORY TYPE CODE TESTS RESULT OUT OF REFERENCE UNITS RANGE LAB PTI(LOINC) 9.3-11.9 sec Prothrombin Time 10.6 LAB INR(LOINC) INR 1.00 Result Comment: Standard Therapy 2.0-3.0 High Dose 2.5-3.5 Performed By: #### PT #### [facility] [address] [place] [address] COMPREHENSIVE PANEL Collected: 02/16/2018 Status: F Source: [facility] 5:[facility] REPOSITORY TYPE CODE TESTS RESULT OUT OF REFERENCE UNITS RANGE LAB NA(LOINC) 136-145 mEq/L Sodium Blood 141 LAB K(LOINC) 3.5-5.1 mEq/L Low Potassium Blood 3.3 LAB CL(LOINC) 98-107 mEq/L Chloride Blood 107 LAB CO2(LOINC) 21-32 mEq/L CO2 Blood 29 LAB GLU(LOINC) 70-99 mg/dL Glucose High Blood 116 LAB BUN(LOINC) 7-18 mg/dL BUN Blood 7 LAB CREA(LOINC 0.67-1.17 mg/dL ) Low Creatinine Blood 0.57 LAB CA(LOINC) 8.5-10.1 mg/dL Calcium Blood 8.9 LAB ALB(LOINC) 3.4-5.0 g/dL Albumin Blood 3.9 LAB TP(LOINC) 6.4-8.2 g/dL Total Protein 6.6 LAB AST(LOINC) 9-37 U/L AST-SGOT High Blood 83 LAB ALT(LOINC) 12-78 U/L ALT-SGPT Blood 30 LAB ALKP(LOINC 46-116 U/L ) Alk Phosphatase 69 LAB BILIT(LOIN 0.2-1.0 mg/dL C) Total Bilirubin 0.4 LAB ANGAP(LOIN 8-16 C) Anion Gap 8 Performed By: #### P14 #### [place] [address] MAGNESIUM BLOOD Collected: 02/16/2018 Status: F Source: [facility] 5:00 PM HEALTH SYSTEM REPOSITORY TYPE CODE TESTS RESULT OUT OF REFERENCE UNITS RANGE LAB MAG(LOINC) 1.6-2.6 mg/dL Magnesium Blood 1.9 Performed By: #### MAG #### [place] [id number] TROPONIN I Collected: 02/16/2018 Status: F Source: [facility] 5:00 HEALTH SYSTEM REPOSITORY TYPE CODE TESTS RESULT OUT OF REFERENCE UNITS RANGE LAB TROP(LOINC) 0.015-0.045 ng/ml High alert Troponin I 14.800 Performed By: #### TROP #### [place] [address] MDRD GFR Collected: 02/16/2018 Status: F Source: [facility] 5:00 HEALTH SYSTEM REPOSITORY TYPE CODE TESTS RESULT OUT OF RANGE REFERENCE UNITS LAB GFRFN(LOINC >60mL/min/1.73m ) 2 eGFR >60 Result Comment: If the patient is , multiply the result by 1.210. Performed By: #### GFR #### [place] [address] HGB A1C Collected: 02/16/2018 Status: F Source: [facility] 5:00 PM HEALTH SYSTEM REPOSITORY TYPE CODE TESTS RESULT OUT OF RANGE REFERENCE UNITS LAB A1C5(LOINC) 4.2-6.3 % High Hgb A1c 6.5 Result Comment: Method is National Glycohemoglobin Standardization Program (NGSP) compliant. LAB ESAVG(LOINC) mg/dl Est. Avg Glucose 140 Performed By: #### HA1C #### [place] [address] EMERGENCY DEPARTMENT Observed: 02/16/2018 Status: F Source: [facility] SUMMARY 4:13 PM [facility] [place], [place] REPOSITORY [facility] Medical Records Department [address] [place] [address] Emergency Department Summary 02/16/18 1106 MR#: [id number] Acct: [id number] Name: BYRON AMBRIZ Rep #: [id number] : 1955 62 From: Carson Flores MD PCP: Libby Arias MD Status: DEP ER - ER Visit Summary Date of Service: 02/16/18 Chief Complaint: [] Chest pain began last night history of CAD scheduled to see cardiothoracic surgeon for CABG History of Present Illness: The patient is a 62 M [] he was diagnosed with 3-5 vessel CAD in January he scheduled to see a cardiothoracic surgeon at [facility], he indicates last night he began having chest pressure it persisted into the morning for the time he came in for evaluation, use of the chest pain does not last long he is on no specific medication such as nitroglycerin for the chest pain, he took aspirin came into the emergency department the pain is currently 4 out of 10 he states he feels better, he has diabetes is well controlled otherwise he has no other past history is no history of DE PE or DVT normal kidneys Physical Examination: [] Vital signs are within normal range is in no distress head neck chest unremarkable lungs are clear heart tones are normal abdomen soft nontender pulses symmetric lower extremities are without cyanosis clubbing or edema neurologically is awake alert moving all 4 Test Results: [] Emergency Department Course and Treatment: [] EKG shows nothing acute sinus rhythm he will be treated with full strength aspirin morphine screening labs will discuss case DrSadia for his enlisted advisor, troponin came back 13, the rest of the studies are generally unremarkable he was given full dose aspirin spoke with Dr. Андрей Russ believes the patient should be transferred to [facility] for definitive management, agreed with heparin no Brilinta as as of yet the patient's feeling better we have repeated his EKG it is pending he understands need for transfer, we have discussed the case with [facility] they agree to transfer Treatment Plan: [] Disposition: [] Transfer to [facility] Impression: [] Non-STEMI DE, history of 5 vessel CAD DE diabetes This note was generated with Garlikation software. It may contain incorrect words, spelling, and punctuation that were not noted in review of the chart prior to signing ED Disposition - Plan for ED Patient: Chief Complaint: Chest Pain Referrals: Libby Arias MD [Primary Care Provider] - What to do if you have Problems For any increased pain, shortness of breath, bleeding, nausea or vomiting, chest pain, or any unexpected problems, contact your Primary Care Provider. Call [facility] ([phone]) or report to the closest Emergency Room. Call 911 if necessary. 02/16/18 1613 <Electronically signed by Carson Flores MD> Date Carson Flores MD Cosigner Signature (If Indicated): Date CC: Libby Arias MD HISTORY PHYSICAL Observed: 02/16/2018 Status: COMPLETED Source: [place] 4:01 PM [facility] OTHER CAMPUS REPOSITORY O ID: [id number] Author: Radames Romero Service: Cardiovascular Disease Author Type: Physician Type: HANDP Filed: 02/17/2018 12:33 PM Note Text: HISTORY AND PHYSICAL EXAMINATION SERVICE DATE: 02/16/2018 SERVICE TIME: 4:21 PM PRIMARY CARE PHYSICIAN: Libby Arias MD Subjective CHIEF COMPLAINT: CP HPI: This is a 62 year old male with h/o seizure and NIDDM, type 2, on metformin , recently diagnosed with MV CAD, the pt had appointment with Dr. chappell on 02/20/18 for possible CABG. Per the pt he was lifting heaving stuff yesterday noon and started having retrosternal chest pain, dull/aching , non radiating , was about 5-6/10, constant, was not associated with diaphoresis, SOB, dizziness, n/v, palpitations. The pain remained constant and took about 2 ASA at 7 pm and then 2 more at 11 pm and didn't help much with the pain. He couldn't sleep all night and this am Continued to have CP and hence [facility] evaluation. In the [facility] ED was given SL nitro and a nitro patch was put. Currently his pain now is 1-2/10. EKG doesn't show any significant ST/T changes and the troponin is 13.90 at [facility]. Off note pt is having CP on exertion since Oct 2017, initially thought dyspepsia, PPI didn't help him. He has a enlisted advisor at [facility], Dr. Louis. Had a initial stress test on 12/18/17, + reversible anteroseptal and apical ischemia with EF of 60%. Later had a LHC, 01/23: left main- normal LAD: [employer] of mid LAD, 1st diagonal 80% occlusion, 2 nd diagonal 80% stenosis LCX: OM3: proximal 50% stenosis, LT PDA- proximal 60% stenosis RCA: mild luminal irregularities, RT PDA: distal 50% stenosis FUNCTIONAL STATUS: Independent PAST MEDICAL HISTORY Diagnosis Date - Abnormal cardiovascular stress test - CAD (coronary artery disease) - Chest pain - Dyspnea - GERD (gastroesophageal reflux disease) - Hemorrhage of gastrointestinal tract, unspecified - Internal hemorrhoids without mention of complication - Other convulsions none since 1975 - Pancreatitis - Seizures (HCC) - Type 2 diabetes mellitus with hyperglycemia (HCC) PAST SURGICAL HISTORY Procedure Laterality Date - COLONOSCOP W/ OR W/O [facility] SPEC 04/15/08 - LAP CHOLECYSTECT/CHOLANGIOGRAPHY FAMILY HISTORY Problem Relation Age of Onset - Hypertension Mother - Heart Brother - Lipids Brother Social History Substance Use Topics - Smoking status: Never Smoker - Smokeless tobacco: Former User Types: Chew - Alcohol use Yes Comment: 1x/month beer Prescriptions Prior to Admission: pantoprazole DR (PROTONIX) 40 mg tablet Disp: Rfl: 02/15/2018 at Unknown time metFORMIN ER (GLUCOPHAGE XR) 500 mg 24 hr tablet Take 2 tablets by mouth twice daily. Disp: 360 tablet Rfl: 1 02/15/2018 at Unknown time phenytoin ER (DILANTIN) 100 mg ER capsule Disp: Rfl: 02/15/2018 at Unknown time ASPIRIN ORAL Take by mouth. Disp: Rfl: 02/16/2018 at Unknown time DOCOSAHEXANOIC ACID/EPA (FISH OIL ORAL) Take by mouth. Disp: Rfl: 02/16/2018 at Unknown time MULTIVITAMIN TAB Take one(1) tablet daily. Disp: Rfl: 0 02/15/2018 at Unknown time ALLERGIES No Known Allergies COMPLETE REVIEW OF SYSTEMS: GENERAL: No weight loss, malaise or fevers NECK: Negative for lumps, goiter, pain and significant neck swelling RESPIRATORY: No Wheezing, Shortness of breath, cough CARDIOVASCULAR: + chest pain, no palpitations, syncope, orthopnea, PND GI: No nausea, vomiting, or diarrhea MUSCULOSKELETAL: Negative for joint pain or swelling, back pain or muscle pain SKIN: Negative for lesions, rash, and itching ENDOCRINE: Negative for cold or heat intolerance, polyuria, polydipsia and goiter NEURO: No history of headaches, syncope, paralysis, seizures or tremors ? PHYSICAL EXAM: GENERAL:AAND o X 3, not in acute respiratory distress HEENT: AT/NC, + EOM, pupils B/L equal and reactive Neck: NO JVD, lymphadneopathy, supple SKIN: Skin color, texture, turgor normal. No rashes or lesions. LUNGS: Lungs clear to auscultation. No crackles , rhochi or wheeze CARDIAC: S1S2+, RRR, no M/G/R ABDOMEN: Abdomen soft, non-tender, BS normal, No masses or organomegaly EXTREMITIES: B/L pulses 2+, no edema Good capillary refill., No ulcers NEURO: no focal neurological deficits Musculoskeletal; no joint swelling or tenderness BP 134/83 Pulse 75 Temp (Src) 98.6 (Temporal Artery) Resp 13 Ht 5' 6 (1.68m) Wt 165 lb 9.1 oz (75.1kg) SpO2 100% BMI 26.74 kg/(m2). DATA: CBC, BMP, BNP and troponins - reviewed, in the chart Diagnostic tests reviewed for today's visit: None Assessment/Plan 62 year old male with h/o seizure and NIDDM, type 2, on metformin , recently diagnosed with MV CAD presenting with CP 1. NSTEMI type 1 s/p [facility] 01/23 - CP improving , however continues to have some CP, will start the pt on nitro gtt - troponins 13.9, will cont to trend - received heparin bolus at [facility], will cont with the infusion - will get echo for LV fucntion and evaluate her valves - repeat EKG here- no change - will do ASA 81 mg dialy, atorvastatin 80 mg daily, coreg 3.125 mg BID 2. NIIDM- type 2 - controlled, will hold metformin and do SSI - check A1c 3. Hypertension Currently on nitro gtt And coreg, will monitor 4. Multivessel CAD- involving the LAD, LCx and mild disease in RCA - will consult Dr. chappell for further recommendation on CABG - will cont with medical management. 5. DVT PPX: scds, heparin Medication and Non-Pharmacologic VTE Prophylaxis/Anticoagulants Anticoagulant AND Antiplatelet Medications Start Dose Route Frequency Ordered Stop 02/17/18 0900 aspirin, enteric coated 81 mg tab(s) (ASPIRIN, ENTERIC COATED) 81 mg ORAL DAILY 02/16/18 1600 -- 02/16/18 1600 vte current anticoag therapy ([place], [place]) 02/16/18 1600 pneumatic compression stockings ([place], [place]) VTE Prophylaxis: VTE prophylaxis appropriate SIGNATURE: Veronique Malhotra MD PATIENT NAME: Byron Ambriz DATE: February 16, 2018 TIME: 4:01 PM PAGER/CONTACT #: [phone] I performed a history and physical examination of the patient and discussed the management with the resident. I reviewed the resident's note and agree with the documented findings and plan of care. Critical Care Documentation: The patient has the following organ/system impairment(s): *Acute coronary syndrome with probability of significant deterioration, myocardial ischemia and life threatening ventricular arrhythmias. This patient has a high probability of sudden, clinically significant deterioration, which requires the highest level of physician preparedness to intervene urgently. I managed/supervised life or organ supporting interventions that required frequent physician assessment. I devoted my full attention to the direct care of this patient for the amount of time indicated below. Time I spent with family or surrogate(s) is included only if the patient was incapable of providing the necessary information or participating in medical decision making. Time devoted to teaching is not included. ?? Time spent providing critical care services: 40 minutes excluding procedures. Radames Romero MD GLUCOSE METER Collected: 02/16/2018 Status: F Source: [facility] 3:16 PM HEALTH SYSTEM REPOSITORY TYPE CODE TESTS RESULT OUT OF REFERENCE UNITS RANGE LAB GLUBL(LOINC 70-99 mg/dL ) High Glucose Meter 121 Result Comment: RN NOTIFIED Performed By: #### GLMET #### [place] [address] CBC W/DIFF, AUTOMATED Collected: 02/16/2018 Status: F Source: [place] 11:05 AM [facility] [place], [place] REPOSITORY TYPE CODE TESTS RESULT OUT OF RANGE REFERENCE UNITS LAB L100.1000 4.4-11.0 K/mm3 Normal WBC 7.5 LAB L100.1200 4.6-6.2 M/mm3 Normal RBC 5.02 LAB L100.1300 13.0-16.5 g/dl Normal HGB 15.3 LAB L100.1400 40-54 % Normal HCT 44.4 LAB L100.1500 80-94 fL Normal MCV 88.4 LAB L100.1600 27.0-32.0 pg Normal MCH 30.5 LAB L100.1700 32-36 g/gl Normal MCHC 34.5 LAB L100.1810 11.6-14.6 % Normal RDW CV 12.6 LAB L100.1820 35.1-43.9 fl Normal RDW SD 40.3 LAB L100.1900 150-450 K/mm3 Normal PLT 157 LAB L100.2000 6.2-12.0 fl Normal MPV 9.2 LAB L100.2100 47-70 % High NEUT% 78.8 LAB L100.2200 19-41 % Low LY% 12.2 LAB L100.2300 0-10 % Normal MONO% 6.7 LAB L100.2400 0-5 % Normal EO% 2.1 LAB L100.2500 0-1 % Normal BASO% 0.1 LAB L100.2550 0.0-0.9 % Normal IM GRAN % 0.100 Result Comment: IG% - Immature Granulocytes (promyelocytes, myelocytes and metamyelocytes) > 1% indicates that a LEFT SHIFT is Present. LAB L100.2620 2.0-7.7 X10 3/uL Normal Absolute Neut 5.9 LAB L100.2720 0.83-4.51 X10 3/ul Normal Absolute Lymph 0.91 Performed By: #### L100.0100 #### [facility] [address] [place], [address] BASIC METABOLIC Collected: 02/16/2018 Status: F Source: [place] PROFILE (BMP) 11:05 AM [facility] [place], [place] REPOSITORY TYPE CODE TESTS RESULT OUT OF RANGE REFERENCE UNITS LAB L501.0100 74-106 mg/dL High GLU 180 Result Comment: Fasting Glucose result greater than or equal to 126 mg/dL suggests DIABETES MELLITUS per A.D.A. criteria. Please note revised GLUCOSE reference range effective 2017. LAB L501.1000 7-18 mg/dL Normal BUN 8 LAB L501.1100 0.70-1.30 mg/dL Normal CREAT,SERUM 0.71 Result Comment: The validity of the calculated GFR AND GFRAA in patients over 70 years has not been determined. Clinical correlation is essential. LAB L501.1110 >60 mL/min Normal EST GFR 119 Result Comment: Non- GFR Calc LAB L501.1115 >60 mL/min Normal EST GFR - AA 144 Result Comment: GFR Calc LAB L501.1255 ml/min Normal Estimated CRCL 97.35 LAB L501.1300 10-20 RATIO Normal BUN/CRE 11.3 LAB L501.2200 8.5-10 mg/dL Normal .1 CA 9.4 LAB L501.5300 136-14 mmol/L Normal 5 NA 137 LAB L501.5600 3.5-5. mmol/L Normal 1 K 3.7 LAB L501.5900 98-107 mmol/L Normal CL 102 LAB L501.6100 21.0-3 mmol/L Normal 2.0 CO2 28.0 LAB L501.6200 5-15 Normal GAP 7 Performed By: #### L500.2500, L501.4010 #### [facility] [address] [place], [place], [address] TROPONIN-I Collected: 02/16/2018 Status: F Source: [place] 11:05 AM [facility] [place] [place] REPOSITORY TYPE CODE TESTS RESULT OUT OF RANGE REFERENCE UNITS LAB L501.4010 <0.045 ng/mL High alert 13.900 TROPONIN-I Result Comment: Critical Result(s) Called at: 11:35:54 02/16/2018 by: Mimi Marte TROPONIN-I EXPECTED VALUES <0.045 NEGATIVE 0.045 - 0.590 AT RISK OF DE > OR = 0.600 SUGGEST DE Not every elevated troponin is indicative of DE. These values should be used with clinical judgement in examining the patient's clinical picture for diagnosis. To establish a diagnosis of DE versus myocardial injury, there must be a demonstrated rise and/or fall in the troponin values, in addition to ischemic symptoms, EKG changes, new regional wall motion abnormality, and/or angiographical evidence. PLEASE NOTE: REFERENCE RANGES EDITED 18 Performed By: #### L500.2500, L501.4010 #### [facility] [address] [place], [address] BNP,B-TYPE NATRIURETIC Collected: 02/16/2018 Status: F Source: [place] 11:05 AM [facility] [place], [place] REPOSITORY TYPE CODE TESTS RESULT OUT OF RANGE REFERENCE UNITS LAB L503.6620 0-100 pg/mL High B-TYPE 235.8 CATRACHO PEP Performed By: #### L503.6620 #### [facility] [address] [place], [address] CHEST 1 VIEW Observed: 02/16/2018 Status: F Source: [place] (PORTABLE) 10:48 AM [facility] [place], [place] REPOSITORY [facility] Imaging Services [address] [facility] [place] [address] Chest 1 View (Portable) MR#: [id number] Acct: [id number] Name: BYRON AMBRIZ Rep #: [id number] : 1955 62 From: Shane Espino PCP: Libby Arias MD Status: [facility] ER Study: Chest 1 View (Portable) Date of Exam: 02/16/18 Exam# [id number] Ordering Dr: Carson Flores MD STUDY: X-RAY CHEST REASON FOR EXAM: Male, 62 years old. Chest pain, shortness of breath TECHNIQUE: Single AP portable view of the chest. COMPARISON: 01/21/2018. FINDINGS: The lungs are clear and expanded. There is no demonstrated pleural abnormality. Normal size heart. Normal mediastinum and dylan. Normal visualized pulmonary arteries. Normal visualized aortic arch and descending thoracic aorta. Normal visualized thoracic spine. Normal visualized ribs, clavicles, and shoulders. There is no demonstrated abnormality of the visualized soft tissue structures of the upper abdomen. RAD/Chest 1 View (Portable) IMPRESSION: No acute cardiopulmonary disease. Electronically Signed: Shane Espino DO at 11:25 EDT , Service support , CC: MD Nba Flores; Libby Arias MD Pattern Wheel Maker: Signed HOSP Observed: 02/16/2018 Status: COMPLETED Source: [place] 12:00 AM CLINIC OTHER CAMPUS REPOSITORY Patient:Byron Ambriz MRN: <[id number]> Height:5' 6(1.676 m) Weight:159 lb 2.8 oz (72.2 kg) Outpatient Medications as of 02/18/18: pantoprazole DR (PROTONIX) 40 mg tablet metFORMIN ER (GLUCOPHAGE XR) 500 mg 24 hr tablet phenytoin ER (DILANTIN) 100 mg ER capsule ASPIRIN ORAL DOCOSAHEXANOIC ACID/EPA (FISH OIL ORAL) MULTIVITAMIN TAB Admission/Clinic Administered Medications as of 02/18/18: dextrose 50% in water 100 mL, insulin regular human 10 Units, potassium chloride 80 mEq, lidocaine 100 mg, magnesium sulfate 4 g in electrolyte-a (PLASMA-LYTE A) 1,000 mL solution dextrose 50% in water 50 mL, insulin regular human 5 Units, potassium chloride 20 mEq, lidocaine 50 mg, magnesium sulfate 2 g in electrolyte- a (PLASMA-LYTE A) 500 mL solution heparin 3,000 Units in NaCl 0.9% 500 mL PHENYLephrine 20 mg in NaCl 0.9% 250 mL (NEOSYNEPHRINE) PHENYLephrine 10 mg in NaCl 0.9% 250 mL (NEOSYNEPHRINE) nitroglycerin 100 mg in D5W 250 mL EPINEPHrine 4 mg in NaCl 0.9% 250 mL insulin regular human 100 Units in NaCl 0.9% 100 mL dexmedetomidine 400 mcg in NaCl 0.9% 100 mL (PRECEDEX) NORepinephrine 16 mg in NaCl 0.9% 250 mL (LEVOPHED) tranexamic acid iv piggyback 2 g in NaCl 0.9% [address] SURGERY mupirocin ointment (BACTROBAN) phenytoin ER 100 mg cap(s) (DILANTIN) 0.9% NaCl 2-10 mL nitroglycerin sublingual 0.4 mg tab(s) (NITROQUICK) atropine 0.4 mg injection aspirin, enteric coated 81 mg tab(s) (ASPIRIN, ENTERIC COATED) atorvastatin 80 mg tab(s) (LIPITOR) heparin iv infusion (LOW DOSE ACS/NOMOGRAM) 25,000 units in NaCl 0.45% 250 mL PREMIX heparin RATE CHANGE bolus 1,000-4,000 Units for subtherapeutic aptt results carvedilol 3.125 mg tab(s) (COREG) dextrose 40 % 15 g glucagon 1 mg injection (GLUCAGEN) dextrose 50% in water 25 mL syringe insulin lispro pen (rapid acting) (HumaLOG KWIKPEN) NaCl 0.9% iv infusion nitroglycerin 100 mg in D5W 250 mL acetaminophen 650 mg tab(s) (TYLENOL) Problem List: Pancreatitis [K85.90] Type 2 diabetes mellitus with hyperglycemia (HCC) [E11.65] NSTEMI (non-ST elevated myocardial infarction) ([facility]) [I21.4] Allergies: No Known Allergies Date Verified:02/18/18 Lab Values Lab Value Units Date High Low POTA* 3.7 mEq/L 02/18/2018 5.1 3.5 W[place]ON* 38.0 % 02/18/2018 51.0 40.1 Progress Notes (): HeatherLuigikrissy Sullivan 02/17/2018 12:33 PM Signed HISTORY AND PHYSICAL EXAMINATION SERVICE DATE: 02/16/2018 SERVICE TIME: 4:21 PM PRIMARY CARE PHYSICIAN: Libby Arias MD Subjective CHIEF COMPLAINT: CP HPI: This is a 62 year old male with h/o seizure and NIDDM, type 2, on metformin , recently diagnosed with MV CAD, the pt had appointment with Dr. chappell on 02/20/18 for possible CABG. Per the pt he was lifting heaving stuff yesterday noon and started having retrosternal chest pain, dull/aching , non radiating , was about 5-6/10, constant, was not associated with diaphoresis, SOB, dizziness, n/v, palpitations. The pain remained constant and took about 2 ASA at 7 pm and then 2 more at 11 pm and didn't help much with the pain. He couldn't sleep all night and this am Continued to have CP and hence [facility] evaluation. In the [facility] ED was given SL nitro and a nitro patch was put. Currently his pain now is 1-2/10. EKG doesn't show any significant ST/T changes and the troponin is 13.90 at [facility]. Off note pt is having CP on exertion since Oct 2017, initially thought dyspepsia, PPI didn't help him. He has a enlisted advisor at [facility], Dr. Louis. Had a initial stress test on 12/18/17, + reversible anteroseptal and apical ischemia with EF of 60%. Later had a LHC, 01/23: left main- normal LAD: [employer] of mid LAD, 1st diagonal 80% occlusion, 2 nd diagonal 80% stenosis LCX: OM3: proximal 50% stenosis, LT PDA- proximal 60% stenosis RCA: mild luminal irregularities, RT PDA: distal 50% stenosis FUNCTIONAL STATUS: Independent PAST MEDICAL HISTORY Diagnosis Date - Abnormal cardiovascular stress test - CAD (coronary artery disease) - Chest pain - Dyspnea - GERD (gastroesophageal reflux disease) - Hemorrhage of gastrointestinal tract, unspecified - Internal hemorrhoids without mention of complication - Other convulsions none since 1975 - Pancreatitis - Seizures (HCC) - Type 2 diabetes mellitus with hyperglycemia (HCC) PAST SURGICAL HISTORY Procedure Laterality Date - COLONOSCOP W/ OR W/O [facility] SPEC 04/15/08 - LAP CHOLECYSTECT/CHOLANGIOGRAPHY FAMILY HISTORY Problem Relation Age of Onset - Hypertension Mother - Heart Brother - Lipids Brother Social History Substance Use Topics - Smoking status: Never Smoker - Smokeless tobacco: Former User Types: Chew - Alcohol use Yes Comment: 1x/month beer Prescriptions Prior to Admission: pantoprazole DR (PROTONIX) 40 mg tablet Disp: Rfl: 02/15/2018 at Unknown time metFORMIN ER (GLUCOPHAGE XR) 500 mg 24 hr tablet Take 2 tablets by mouth twice daily. Disp: 360 tablet Rfl: 1 02/15/2018 at Unknown time phenytoin ER (DILANTIN) 100 mg ER capsule Disp: Rfl: 02/15/2018 at Unknown time ASPIRIN ORAL Take by mouth. Disp: Rfl: 02/16/2018 at Unknown time DOCOSAHEXANOIC ACID/EPA (FISH OIL ORAL) Take by mouth. Disp: Rfl: 02/16/2018 at Unknown time MULTIVITAMIN TAB Take one(1) tablet daily. Disp: Rfl: 0 02/15/2018 at Unknown time ALLERGIES No Known Allergies COMPLETE REVIEW OF SYSTEMS: GENERAL: No weight loss, malaise or fevers NECK: Negative for lumps, goiter, pain and significant neck swelling RESPIRATORY: No Wheezing, Shortness of breath, cough CARDIOVASCULAR: + chest pain, no palpitations, syncope, orthopnea, PND GI: No nausea, vomiting, or diarrhea MUSCULOSKELETAL: Negative for joint pain or swelling, back pain or muscle pain SKIN: Negative for lesions, rash, and itching ENDOCRINE: Negative for cold or heat intolerance, polyuria, polydipsia and goiter NEURO: No history of headaches, syncope, paralysis, seizures or tremors ? PHYSICAL EXAM: GENERAL:AAND o X 3, not in acute respiratory distress HEENT: AT/NC, + EOM, pupils B/L equal and reactive Neck: NO JVD, lymphadneopathy, supple SKIN: Skin color, texture, turgor normal. No rashes or lesions. LUNGS: Lungs clear to auscultation. No crackles , rhochi or wheeze CARDIAC: S1S2+, RRR, no M/G/R ABDOMEN: Abdomen soft, non-tender, BS normal, No masses or organomegaly EXTREMITIES: B/L pulses 2+, no edema Good capillary refill., No ulcers NEURO: no focal neurological deficits Musculoskeletal; no joint swelling or tenderness BP 134/83 Pulse 75 Temp (Src) 98.6 (Temporal Artery) Resp 13 Ht 5' 6 (1.68m) Wt 165 lb 9.1 oz (75.1kg) SpO2 100% BMI 26.74 kg/(m2). DATA: CBC, BMP, BNP and troponins - reviewed, in the chart Diagnostic tests reviewed for today's visit: None Assessment/Plan 62 year old male with h/o seizure and NIDDM, type 2, on metformin , recently diagnosed with MV CAD presenting with CP 1. NSTEMI type 1 s/p [facility] 01/23 - CP improving , however continues to have some CP, will start the pt on nitro gtt - troponins 13.9, will cont to trend - received heparin bolus at [facility], will cont with the infusion - will get echo for LV fucntion and evaluate her valves - repeat EKG here- no change - will do ASA 81 mg dialy, atorvastatin 80 mg daily, coreg 3.125 mg BID 2. NIIDM- type 2 - controlled, will hold metformin and do SSI - check A1c 3. Hypertension Currently on nitro gtt And coreg, will monitor 4. Multivessel CAD- involving the LAD, LCx and mild disease in RCA - will consult Dr. chappell for further recommendation on CABG - will cont with medical management. 5. DVT PPX: scds, heparin Medication and Non-Pharmacologic VTE Prophylaxis/Anticoagulants Anticoagulant AND Antiplatelet Medications Start Dose Route Frequency Ordered Stop 02/17/18 0900 aspirin, enteric coated 81 mg tab(s) (ASPIRIN, ENTERIC COATED) 81 mg ORAL DAILY 02/16/18 1600 -- 02/16/18 1600 vte current anticoag therapy ([place], [place]) 02/16/18 1600 pneumatic compression stockings ([place], [place]) VTE Prophylaxis: VTE prophylaxis appropriate SIGNATURE: Veronique Malhotra MD PATIENT NAME: Byron Ambriz DATE: February 16, 2018 TIME: 4:01 PM PAGER/CONTACT #: [id number] I performed a history and physical examination of the patient and discussed the management with the resident. I reviewed the resident's note and agree with the documented findings and plan of care. Critical Care Documentation: The patient has the following organ/system impairment(s): *Acute coronary syndrome with probability of significant deterioration, myocardial ischemia and life threatening ventricular arrhythmias. This patient has a high probability of sudden, clinically significant deterioration, which requires the highest level of physician preparedness to intervene urgently. I managed/supervised life or organ supporting interventions that required frequent physician assessment. I devoted my full attention to the direct care of this patient for the amount of time indicated below. Time I spent with family or surrogate(s) is included only if the patient was incapable of providing the necessary information or participating in medical decision making. Time devoted to teaching is not included. ?? Time spent providing critical care services: 40 minutes excluding procedures. Radames Romero MD Previous Version Radames Romero 02/17/2018 12:36 PM Signed [facility]ICU PROGRESS NOTE SERVICE DATE: 02/17/2018 SERVICE TIME: 8:14 AM PRIMARY SERVICE: CVICU Subjective CHIEF COMPLAINT: Chest pain INTERVAL HPI: Patient is a 62 year old male with h/o seizure and NIDDM, type 2, on metformin , recently diagnosed with MV CAD, the pt had appointment with Dr. chappell on 02/20/18 for possible CABG. Per the pt he was lifting heaving stuff on 02/15 and started having retrosternal chest pain, dull/aching , non radiating , was about 5-6/10, constant, was not associated with diaphoresis, SOB, dizziness, n/v, palpitations. The pain remained constant and took about 2 ASA at 7 pm and then 2 more at 11 pm and didn't help much with the pain. He couldn't sleep all night and this am Continued to have CP and hence decided to [facility] for [facility] evaluation. In the [facility] ED on 02/16, the patient was given SL nitro and a nitro patch was put. Currently his pain now is 1-2/10. EKG doesn't show any significant ST/T changes and the troponin is 13.90 at [facility]. Off note pt is having CP on exertion since Oct 2017, initially thought dyspepsia, PPI didn't help him. He has a enlisted advisor at [facility], Dr. Lopes. Had a initial stress test on 12/18/17, + reversible anteroseptal and apical ischemia with EF of 60%. Later had a LHC, 01/23, with results as follows: LHC 01/23: Left main- normal LAD: [employer] of mid LAD, 1st diagonal 80% occlusion, 2 nd diagonal 80% stenosis LCX: OM3: proximal 50% stenosis, LT PDA- proximal 60% stenosis RCA: mild luminal irregularities, RT PDA: distal 50% stenosis The patient was started on a nitro and heparin gtt and CT surgery was consulted for possible CABG. The patient had no acute overnight events. The patient was seen and examined this AM. The patient stated that he was feeling some slight chest pressure, 1/10 on the pain scale, with no shortness of breath. Patient has no family members with cardiac events before age 50 but he does have a brother who recently had stents placed. Current hospital medications: phenytoin ER 100 mg cap(s) (DILANTIN) 100 mg ORAL DAILY 0.9% NaCl 2-10 mL 2-10 mL INTRAVENOUS q 12 H nitroglycerin sublingual 0.4 mg tab(s) (NITROQUICK) 0.4 mg SUBLINGUAL q 5 MIN PRN atropine 0.4 mg injection 0.4 mg INTRAVENOUS PRN(NO DISPENSE) aspirin, enteric coated 81 mg tab(s) (ASPIRIN, ENTERIC COATED) 81 mg ORAL DAILY atorvastatin 80 mg tab(s) (LIPITOR) 80 mg ORAL AT BEDTIME heparin iv infusion (LOW DOSE ACS/NOMOGRAM) 25,000 units in NaCl 0.45% 250 mL PREMIX 0-3,000 Units/hr INTRAVENOUS CONTINUOUS heparin RATE CHANGE bolus 1,000-4,000 Units for subtherapeutic aptt results 1,000-4,000 Units INTRAVENOUS PRN carvedilol 3.125 mg tab(s) (COREG) 3.125 mg ORAL BID w MEALS dextrose 40 % 15 g 15 g ORAL PRN glucagon 1 mg injection (GLUCAGEN) 1 mg INTRAMUSCULAR PRN dextrose 50% in water 25 mL syringe 12.5 g INTRAVENOUS PRN insulin lispro pen (rapid acting) (HumaLOG KWIKPEN) SUBCUTANEOUS q 6 H NaCl 0.9% iv infusion 75 mL/hr INTRAVENOUS CONTINUOUS nitroglycerin 100 mg in D5W 250 mL 5-200 mcg/min INTRAVENOUS CONTINUOUS acetaminophen 650 mg tab(s) (TYLENOL) 650 mg ORAL q 4 H PRN Objective PHYSICAL EXAM: BP 125/76 Pulse 67 Temp (Src) 98.6 (Tympanic) Resp 16 Ht 5' 6 (1.68m) Wt 165 lb 9.1 oz (75.1kg) SpO2 97% BMI 26.74 kg/(m2). Physical Exam Performed PHYSICAL EXAMINATION: General appearance: Well appearing, alert, in no acute distress, well-hydrated, well nourished. Skin: Skin color, texture, turgor normal, no suspicious rashes or lesions Head: Normocephalic, no masses, lesions, tenderness or abnormalities Eyes: Anicteric sclera. Pupils are equally round and reactive to light. Extraocular movements are intact. Ears: External ears normal, canals clear Nose/Sinuses: Nares normal, septum midline, mucosa normal, no drainage or sinus tenderness Oropharynx: Lips, mucosa, and tongue normal, teeth and gums normal, oropharynx normal Neck: Supple, no adenopathy; thyroid symmetric, normal size, no bruits Back: Normal exam Lungs: Lungs clear to auscultation. No wheezing, rhonchi, rales Heart: RRR without murmur, gallop, or rubs. No ectopy Abdomen: Normal abdominal exam, Abdomen soft, non-tender. Bowel sounds normal. No masses, organomegaly Extremities: No deformities, edema, skin discoloration, clubbing or cyanosis. Good capillary refill. Musculoskeletal: No joint swelling, deformity, or tenderness Peripheral pulses: Normal Neuro: Oriented X 3 DATA: Diagnostic tests reviewed for today's visit: Most recent labs and imaging results. Recent Labs 02/17/18 0430 02/16/18 2230 02/16/18 1700 TROPI -- 12.400* 14.800* WBC 6.16 -- 9.13* RBC 4.27* -- 4.59* HB 13.2* -- 14.2 HCT 38.4* -- 41.2 MCV 89.9 -- 89.8 PLT 142 -- 179 GLUC 123* -- 116* BUN 8 -- 7 CREAT 0.66* -- 0.57* NA 141 -- 141 K 3.5 -- 3.3* CHLOR 108* -- 107 CO2 27 -- 29 TPROT -- -- 6.6 ALB -- -- 3.9 CA 8.3* -- 8.9 ALKPHOS -- -- 69 TBILI -- -- 0.4 AST -- -- 83* ALT -- -- 30 PTSEC -- -- 10.6 APTT 106.9* 46.0* 57.4* INR -- -- 1.00 MG -- -- 1.9 Miscellaneous Tests: Lipid Panel: Cholesterol- 119, TG- 78, HDL- 48, LDL- 55 Troponin: 14.8--> 12.4--> HgbA1c: 6.5 Cardiovascular: 02/15 Exercise Stress Test: Evidence of distal anteroseptal and apical ischemia. Small apical infarct noted. 02/15 EKG: suggestive of inferior infarct 02/15 Cardiac Cath: Totally occluded LAD with severe disease involving first and second diagonal branches and moderate disease involving the circumflex artery. Preserved EF. Assessment/Plan 1. NSTEMI type 1 s/p [facility] 01/23 - ASA 81mg daily - Atorvastatin 80mg daily - Coreg 3.125mg BID - Heparin gtt - Nitro gtt - Trend troponins - TTE pending - EKG no change ? 2. T2DM - SSI ? 3. HTN - Coreg 3.125mg BID ? 4. Multivessel CAD- involving the LAD, LCx and mild disease in RCA - will consult Dr. Chappell for further recommendation on CABG - will cont with medical management. ? 5. DVT PPX: scds, heparin SIGNATURE: Chris العلي MD PATIENT NAME: Byron Ambriz DATE: February 17, 2018 TIME: 8:14 AM PAGER: [id number] I performed a history and physical examination of the patient and discussed the management with the resident. I reviewed the resident's note and agree with the documented findings and plan of care. NTG gtt could be weaned off. For CABG tomorrow, d/w Dr Chappell. Trops trended down. Echo in AM. Critical Care Documentation: The patient has the following organ/system impairment(s): *Acute coronary syndrome with probability of significant deterioration, myocardial ischemia and life threatening ventricular arrhythmias. This patient has a high probability of sudden, clinically significant deterioration, which requires the highest level of physician preparedness to intervene urgently. I managed/supervised life or organ supporting interventions that required frequent physician assessment. I devoted my full attention to the direct care of this patient for the amount of time indicated below. Time I spent with family or surrogate(s) is included only if the patient was incapable of providing the necessary information or participating in medical decision making. Time devoted to teaching is not included. ?? Time spent providing critical care services: 40 minutes excluding procedures. Radames Romero MD Previous Version Ty Chappell 02/17/2018 10:49 AM Signed CARDIOTHORACIC SURGERY CONSULT / HANDP SERVICE DATE: 02/17/2018 SERVICE TIME: 10:41 AM Subjective PRIMARY SERVICE: Cardiothoracic Surgery CHIEF COMPLAINT: cad, nstemi HPI: This is a 62 year old male who presents a recent history of exertional angina. Stress test was positive 12/18/17:+ reversible anteroseptal and apical ischemia with EF of 60%. . Cardiac cath at [facility] shows severe MV CAD including left main- normal LAD: SAL[employer] of mid LAD, 1st diagonal 80% occlusion, 2 nd diagonal 80% stenosis LCX: OM3: proximal 50% stenosis, LT PDA- proximal 60% stenosis RCA: mild luminal irregularities, RT PDA: distal 50% stenosis ? He was referred for outpatient cardiac surgery eval. Sunday he lifted bags of mulch resulting in persisting chest pressure. He presented Sunday with NSTEMI, troponin 14.Currently pain free on heparin. Risk factors for CAD include DM and HTN, +FH in brother. No history of other vascula disease such as CVA, lower extremity disease, or renal insufficiency. Patient is Able to Perform the Following Physical Activity: Do yardwork, such as raking leaves, weeding,or pushing a power mower (4.50 METs) Patient has the following medical comorbidities which might affect the perioperative course: - Type II Diabetes with no complications. Patient is on oral medications. - Hypertension, well controlled. PAST MEDICAL HISTORY Diagnosis Date - Abnormal cardiovascular stress test - CAD (coronary artery disease) - Chest pain - Dyspnea - GERD (gastroesophageal reflux disease) - Hemorrhage of gastrointestinal tract, unspecified - Internal hemorrhoids without mention of complication - Other convulsions none since 1975 - Pancreatitis - Seizures (HCC) - Type 2 diabetes mellitus with hyperglycemia (HCC) PAST SURGICAL HISTORY Procedure Laterality Date - COLONOSCOP W/ OR W/O BRSH SPEC 04/15/08 - LAP CHOLECYSTECT/CHOLANGIOGRAPHY FAMILY HISTORY Problem Relation Age of Onset - Hypertension Mother - Heart Brother - Lipids Brother Social History Substance Use Topics - Smoking status: Never Smoker - Smokeless tobacco: Former User Types: Chew - Alcohol use Yes Comment: 1x/month beer Prescriptions Prior to Admission: pantoprazole DR (PROTONIX) 40 mg tablet Disp: Rfl: 02/15/2018 at Unknown time metFORMIN ER (GLUCOPHAGE XR) 500 mg 24 hr tablet Take 2 tablets by mouth twice daily. Disp: 360 tablet Rfl: 1 02/15/2018 at Unknown time phenytoin ER (DILANTIN) 100 mg ER capsule Disp: Rfl: 02/15/2018 at Unknown time ASPIRIN ORAL Take by mouth. Disp: Rfl: 02/16/2018 at Unknown time DOCOSAHEXANOIC ACID/EPA (FISH OIL ORAL) Take by mouth. Disp: Rfl: 02/16/2018 at Unknown time MULTIVITAMIN TAB Take one(1) tablet daily. Disp: Rfl: 0 02/15/2018 at Unknown time pantoprazole DR (PROTONIX) 40 mg tablet metFORMIN ER (GLUCOPHAGE XR) 500 mg 24 hr tablet Take 2 tablets by mouth twice daily. phenytoin ER (DILANTIN) 100 mg ER capsule ASPIRIN ORAL Take by mouth. DOCOSAHEXANOIC ACID/EPA (FISH OIL ORAL) Take by mouth. MULTIVITAMIN TAB Take one(1) tablet daily. ALLERGIES No Known Allergies REVIEW OF SYSTEMS: PAIN ASSESSMENT: Negative for pain, history of chronic pain, or current treatment for a chronic pain condition. GENERAL: No weight loss, malaise or fevers HEENT: Negative for frequent or significant headaches, No changes in hearing or vision, no nose bleeds or other nasal problems NECK: Negative for lumps, goiter, pain and significant neck swelling RESPIRATORY: Negative for cough, wheezing or shortness of breath. CARDIOVASCULAR: Positive for chest pain on exertion see above GI: Negative for abdominal discomfort, blood in stools or black stools or change in bowel habits : No history of dysuria, frequency or incontinence MUSCULOSKELETAL: Negative for joint pain or swelling, back pain or muscle pain. SKIN: Negative for lesions, rash, and itching. PSYCH: Negative for sleep disturbance, mood disorder and recent psychosocial stressors. HEMATOLOGY/LYMPHOLOGY Negative for prolonged bleeding, bruising easily or swollen nodes. ENDOCRINE: Positive for See HPI NEURO: No history of headaches, syncope, paralysis, seizures or tremors Objective PHYSICAL EXAM: BP 131/85 Pulse 71 Temp 37 ?C (98.6 ?F) Resp 19 Ht 167.6 cm (5' 6) Wt 75.1 kg (165 lb 9.1 oz) SpO2 97% BMI 26.72 kg/m? Body surface area is 1.87 meters squared. STS RISK CALCULATOR: pending STS Calculator On examination, he appears well and is breathing comfortably. Vitals signs are BP 131/85 Pulse 71 Temp 37 ?C (98.6 ?F) Resp 19 Ht 167.6 cm (5' 6) Wt 75.1 kg (165 lb 9.1 oz) SpO2 97% BMI 26.72 kg/m? . There is no JVD. No cervical or supraclavicular adenopathy is palpated. The chest is symmetrical without deformity. Breath sounds are clear bilaterally. The cardiac rhythm is regular. There are no rubs, gallops, or murmurs. The carotid, subclavian, DP and radial pulses are 2+ and equal bilaterally. There are no bruits. The abdomen is soft and non-tender. There are no abdominal masses. There is no hepatojugular reflux. There is no pretibial edema. There is no clubbing or cyanosis. Lines, Drains, and Airways Line Peripheral 02/16/18 1100 Assessment Short Left Antecubital 20 Gauge less than 1 day Peripheral 02/16/18 1100 Assessment Short Right Wrist 22 Gauge less than 1 day @LDAASSESS(2::::8:)@ DATA: Diagnostic tests reviewed for today's visit: Significant Lab Results: see HPI and below. see below Recent Labs 02/17/18 0430 02/16/18 2230 02/16/18 1700 HBA1C -- -- 6.5* RBC 4.27* -- 4.59* WBC 6.16 -- 9.13* HB 13.2* -- 14.2 HCT 38.4* -- 41.2 PLT 142 -- 179 INR -- -- 1.00 APTT 106.9* 46.0* 57.4* NA 141 -- 141 K 3.5 -- 3.3* CHLOR 108* -- 107 CO2 27 -- 29 BUN 8 -- 7 CREAT 0.66* -- 0.57* GLUC 123* -- 116* CA 8.3* -- 8.9 MG -- -- 1.9 TPROT -- -- 6.6 TBILI -- -- 0.4 ALKPHOS -- -- 69 ALT -- -- 30 AST -- -- 83* ANION 10 -- 8 Assessment/Plan MV CAD, NSTEMI I agree with the recommendation for MV CABG, targets to include LAD, diag, and OM. The risks, benefits, and anticipated outcomes of the procedure; the risks and benefits of the alternatives to the procedure; and the roles and tasks of the personnel to be involved were discussed with the patient and he consents to the procedure and agrees to proceed. In preparation for surgery carotid duplex, 2D echocardiogram and MRSA screen will be obtained. Surgery is scheduled for 02/18. Tests/Labs Ordered: 1. Echocardiogram 2. MRSA screen 3. carotid The risks, benefits, and anticipated outcomes of the procedure; the risks and benefits of the alternatives to the procedure; and the roles and tasks of the personnel to be involved were discussed with the patient and he consents to the procedure and agrees to proceed. These findings will be communicated back to the requesting provider electronically. SIGNATURE: Ty Chappell MD PATIENT NAME: Byron Ambriz DATE: February 17, 2018 TIME: 10:41 AM PAGER/CONTACT #: [phone] Sherry Short (Rn), RN 02/17/2018 4:17 PM Signed Page out to Dr. Rachel daniel patient's change in surgery time Lenny Chahal Cl 02/18/2018 7:16 AM Signed ANESTHESIOLOGY DAY OF SURGERY NOTE SERVICE DATE: 02/18/2018 SERVICE TIME: 7:14 AM : 1955 Procedure(s) (LRB): BYPASS GRAFT ARTERY CORONARY ON-PUMP THREE CORONARY VENOUS GRAFTS (N/A) Surgeon(s): Ty Chappell Estimated body mass index is 25.69 kg/m? as calculated from the following: Height as of this encounter: 167.6 cm (5' 6). Weight as of this encounter: 72.2 kg (159 lb 2.8 oz). Most recent hematocrit and potassium results: Hematocrit 38.0 02/18/2018 Potassium 3.7 02/18/2018 ANES DOS/PREOP NOTE: Vitals: 02/18/18 0200 02/18/18 0300 02/18/18 0400 02/18/18 0500 BP: 130/78 132/84 Pulse: 67 66 62 69 Resp: 21 13 16 Temp: 37.1 ?C (98.8 ?F) TempSrc: SpO2: 95% 97% 97% Weight: Height: ACTIVE PROBLEM LIST Pancreatitis Type 2 Diabetes Mellitus With Hyperglycemia (Hcc) Nstemi (Non-St Elevated Myocardial Infarction) (Hcc) PAST MEDICAL HISTORY Diagnosis Date - Abnormal cardiovascular stress test - CAD (coronary artery disease) - Chest pain - Dyspnea - GERD (gastroesophageal reflux disease) - Hemorrhage of gastrointestinal tract, unspecified - Internal hemorrhoids without mention of complication - Other convulsions none since 1975 - Pancreatitis - Seizures (HCC) - Type 2 diabetes mellitus with hyperglycemia (HCC) PAST SURGICAL HISTORY Procedure Laterality Date - COLONOSCOP W/ OR W/O BRSH SPEC 04/15/08 - LAP CHOLECYSTECT/CHOLANGIOGRAPHY FAMILY HISTORY Problem Relation Age of Onset - Hypertension Mother - Heart Brother - Lipids Brother Social History: Social History Substance Use Topics - Smoking status: Never Smoker - Smokeless tobacco: Former User Types: Chew - Alcohol use Yes Comment: 1x/month beer No current facility-administered medications on file prior to encounter. Current Outpatient Prescriptions on File Prior to Encounter: pantoprazole DR (PROTONIX) 40 mg tablet metFORMIN ER (GLUCOPHAGE XR) 500 mg 24 hr tablet Take 2 tablets by mouth twice daily. phenytoin ER (DILANTIN) 100 mg ER capsule ASPIRIN ORAL Take by mouth. DOCOSAHEXANOIC ACID/EPA (FISH OIL ORAL) Take by mouth. MULTIVITAMIN TAB Take one(1) tablet daily. Current Facility-Administered Medications: dextrose 50% in water 100 mL, insulin regular human 10 Units, potassium chloride 80 mEq, lidocaine 100 mg, magnesium sulfate 4 g in electrolyte- a (PLASMA-LYTE A) 1,000 mL solution MISCELLANEOUS ONCE Ty A [place] dextrose 50% in water 50 mL, insulin regular human 5 Units, potassium chloride 20 mEq, lidocaine 50 mg, magnesium sulfate 2 g in electrolyte- a (PLASMA-LYTE A) 500 mL solution MISCELLANEOUS ONCE Ty A [place] heparin 3,000 Units in NaCl 0.9% 500 mL 1-5,000 Units/hr INTRAVENOUS ONCE Ty A [place] PHENYLephrine 20 mg in NaCl 0.9% 250 mL (NEOSYNEPHRINE) 25- 300 mcg/min INTRAVENOUS ONCE Ty A [place] PHENYLephrine 10 mg in NaCl 0.9% 250 mL (NEOSYNEPHRINE) 25- 300 mcg/min INTRAVENOUS ONCE Ty A [place] nitroglycerin 100 mg in D5W 250 mL 5-200 mcg/min INTRAVENOUS ONCE Ty A [place] EPINEPHrine 4 mg in NaCl 0.9% 250 mL 0.5-10 mcg/min INTRAVENOUS ONCE Ty A [place] insulin regular human 100 Units in NaCl 0.9% 100 mL 0.5 Units/hr INTRAVENOUS ONCE Ty A [place] dexmedetomidine 400 mcg in NaCl 0.9% 100 mL (PRECEDEX) 0.2- 0.7 mcg/kg/hr INTRAVENOUS ONCE Ty A [place] NORepinephrine 16 mg in NaCl 0.9% 250 mL (LEVOPHED) 0.6-30 mcg/min INTRAVENOUS ONCE Ty A [place] tranexamic acid iv piggyback 2 g in NaCl 0.9% [address] SURGERY 2 g OTHER ONCE Ty A [place] mupirocin ointment (BACTROBAN) TOPICAL BID Diana (Manager Acquisition) MICHELLE Garnica phenytoin ER 100 mg cap(s) (DILANTIN) 100 mg ORAL DAILY Veronique (Res) Roscoe 100 mg at 02/17/18 0854 0.9% NaCl 2-10 mL 2-10 mL INTRAVENOUS q 12 H Veronique (Res) [place]coe 10 mL at 02/17/18 0854 nitroglycerin sublingual 0.4 mg tab(s) (NITROQUICK) 0.4 mg SUBLINGUAL q 5 MIN PRN Veronique (Res) [place] atropine 0.4 mg injection 0.4 mg INTRAVENOUS PRN(NO DISPENSE) Veronique (Res) [place] aspirin, enteric coated 81 mg tab(s) (ASPIRIN, ENTERIC COATED) 81 mg ORAL DAILY Veronique (Res) [place] 81 mg at 02/17/18 0854 atorvastatin 80 mg tab(s) (LIPITOR) 80 mg ORAL AT BEDTIME Veronique (Res) [place] 80 mg at 02/17/18 2122 heparin iv infusion (LOW DOSE ACS/NOMOGRAM) 25,000 units in NaCl 0.45% 250 mL PREMIX 0-3,000 Units/hr INTRAVENOUS CONTINUOUS Veronique (Res) [place] Last Rate: 14 mL/hr at 02/18/18 0230 1,400 Units/hr at 02/18/18 0230 And heparin RATE CHANGE bolus 1,000-4,000 Units for subtherapeutic aptt results 1,000-4,000 Units INTRAVENOUS PRN Veronique (Res) [place] 2,300 Units at 02/17/18 1532 carvedilol 3.125 mg tab(s) (COREG) 3.125 mg ORAL BID w MEALS Veronique (Res) [place] 3.125 mg at 02/17/18 1647 dextrose 40 % 15 g 15 g ORAL PRN Veronique (Res) [place] Or glucagon 1 mg injection (GLUCAGEN) 1 mg INTRAMUSCULAR PRN Veronique (Res) [place] Or dextrose 50% in water 25 mL syringe 12.5 g INTRAVENOUS PRN Veronique (Res) [place] insulin lispro pen (rapid acting) (HumaLOG KWIKPEN) SUBCUTANEOUS q 6 H Veronique (Res) [place] 2 Units at 02/17/18 1304 NaCl 0.9% iv infusion 75 mL/hr INTRAVENOUS CONTINUOUS Veronique (Res) [place] Last Rate: 75 mL/hr at 02/18/18 0200 75 mL/hr at 02/18/18 0200 nitroglycerin 100 mg in D5W 250 mL 5-200 mcg/min INTRAVENOUS CONTINUOUS Veronique (Res) [place] Stopped at 02/17/18 1020 acetaminophen 650 mg tab(s) (TYLENOL) 650 mg ORAL q 4 H PRN Veronique (Res) Roscoe 650 mg at 02/16/18 2219 Allergies: ALLERGIES No Known Allergies DOS EXAM: Adequate NPO Status: Yes Anesthetic Risks, Benefits, Alternatives, Personnel and Consent Discussed: Yes Patient agrees to proceed: Yes Previous Anesthesia: No history of adverse event Airway Assessment: MP 2; Neck ROM: Full ROM without neurologic symptoms; Airway Evaluation: No significant abnormalities Symptoms of Sleep Apnea: Hypertension, Age over 50 (62 year old) and Male gender Dentition: Teeth intact Additional Physical Exam: Lungs: Patient health status unchanged since recent history and physical. See history and physical for exam findings. Cardiac: Patient health status unchanged since recent history and physical. See history and physical for exam findings. Additional Pertinent Findings: N/A Blood Products: Will accept Blood/Blood Products Anesthetic Plan: General Anesthetic Monitoring: Standard ASA Monitors, Invasive Hemodynamic Monitoring Arterial line, RANDAL - patient denies history of stricture or varices and CVP, Potential Prolonged Intubation, Potential ICU Admission Postop and Potential Multiple Transfusions Pain Management Plan: Parenteral or Oral ASA Class: 3 Other Medical Problems: None Chronic Beta Radha medication administered within 24 hours: yes I have interviewed and examined the patient. I have reviewed the medical record and/or the pre-anesthesia evaluation, pertinent labs, and test results. Significant changes in the patient's condition since the History and Physical, not otherwise documented in primary service progress notes: No This contains updated information obtained within 48 hours of Surgery/Procedure. SIGNATURE: Lenny Chahal MD PATIENT NAME: Byron Ambriz DATE: February 18, 2018 TIME: 7:14 AM CSN: [id number] Progress Notes ([facility]): Marcie Lerma 01/24/2018 8:54 AM Signed Had left heart cath 01/24/2018 Told to hold metformin. 1. He will get BMP at [facility] today. 2. If creatinine stable, then he can resume the metformin. 3. Glucoses around 180 now. Told ok. He will contact us if >300s Marcie Lerma MD BASIC METABOLIC PANL Collected: 01/24/2018 Status: F Source: [place] 11:15 AM [facility] REPOSITORY TYPE CODE TESTS RESULT OUT OF REFERENCE UNITS RANGE LAB GLU 74-99 mg/dL High Glucose 179 Result Comment: The [place] [employer] (ADA) provides guidance for cutoff values for fasting glucose and random glucose. The ADA defines fasting as no caloric intake for at least 8 hours. Fas ting plasma glucose results between 100 to 125 mg/dL indicate increased risk for diabetes (prediabetes). Fasting plasma glucose results greater than or equal to 126 mg/dL meet the criteria for diagnosis of diabetes. In the absence of unequivocal hyperglycemia, results should be confirmed by repeat testing. In a patient with classic symptoms of hyperglycemia or hyperglycemic crisis, random plasma glucose results greater than or equal to 200 mg/dL meet the criteria for diagnosis of diabetes. Reference: Standards of Medical Care in Diabetes 2016, [place] [employer]. Diabetes Care. 2016.39(Suppl 1). LAB BUN 9-24 mg/dL BUN 11 LAB CRET 0.73-1.22 mg/dL Creatinine 0.84 LAB NA 136-144 mmol/L Sodium 139 LAB K 3.7-5.1 mmol/L Potassium 4.3 LAB CL 97-105 mmol/L Chloride 99 LAB CO2 22-30 mmol/L CO2 22 LAB AGAP 9-18 mmol/L Anion Gap 18 LAB CA 8.5-10.2 mg/dL Calcium, Total 9.9 LAB GFRAA eGFR- Amer. >60 LAB GFRNAA . eGFR-All Other Races >60 Result Comment: eGFR (Estimated GFR) Units of measure: mL/min/1.73 meters squared eGFR is derived from the reexpressed MDRD Study equation using the following parameters: serum creatinine, age, gender and race. The creatinine assay has been calibrated to be traceable to IDMS. An eGFR <60 mL/min/1.73m2 for >3 months is consistent with chronic kidney disease. Refer to KDOQI guidelines for clinical interpretation. In patients with unstable renal function, e.g. those with acute kidney injury, the eGFR may not accurately reflect actual GFR. Performed By: #### BMP #### [facility] [address] [place], [place] [address] CBC W/DIFF, AUTOMATED Collected: 01/21/2018 Status: F Source: [place] Collins:33 PM [facility] [place] [place] REPOSITORY TYPE CODE TESTS RESULT OUT OF RANGE REFERENCE UNITS LAB L100.1000 4.4-11.0 K/mm3 Normal WBC 5.0 LAB L100.1200 4.6-6.2 M/mm3 Normal RBC 4.99 LAB L100.1300 13.0-16.5 g/dl Normal HGB 15.3 LAB L100.1400 40-54 % Normal HCT 44.1 LAB L100.1500 80-94 fL Normal MCV 88.4 LAB L100.1600 27.0-32.0 pg Normal MCH 30.7 LAB L100.1700 32-36 g/gl Normal MCHC 34.7 LAB L100.1810 11.6-14.6 % Normal RDW CV 12.7 LAB L100.1820 35.1-43.9 fl Normal RDW SD 40.8 LAB L100.1900 150-450 K/mm3 Normal PLT 175 LAB L100.2000 6.2-12.0 fl Normal MPV 9.8 LAB L100.2100 47-70 % Normal NEUT% 51.3 LAB L100.2200 19-41 % Normal LY% 31.5 LAB L100.2300 0-10 % Normal MONO% 6.8 LAB L100.2400 0-5 % High EO% 9.6 LAB L100.2500 0-1 % Normal BASO% 0.8 LAB L100.2550 0.0-0.9 % Normal IM GRAN % 0.000 Result Comment: IG% - Immature Granulocytes (promyelocytes, myelocytes and metamyelocytes) > 1% indicates that a LEFT SHIFT is Present. LAB L100.2620 2.0-7.7 X10 3/uL Normal Absolute Neut 2.6 LAB L100.2720 0.83-4.51 X10 3/ul Normal Absolute Lymph 1.57 Performed By: #### L100.0100 #### [facility] [address] [place], [place], [address] CHEST PA AND LATERAL Observed: 01/21/2018 Status: F Source: [place] 8:13 AM [facility] [place] [place] REPOSITORY [facility] Imaging Services [address] [place] [address] Chest PA and Lateral MR#: [id number] Acct: [id number] Name: BYRON AMBRIZ Rep #: [id number] : 1955 M 62 From: Enrrique Dunaway MD PCP: Libby Arias MD Status: REG CLI Study: Chest PA and Lateral Date of Exam: 01/21/18 Exam# [id number] Ordering Dr: Bernardo Louis MD STUDY: X-RAY CHEST REASON FOR EXAM: Male, 62 years old. Chest discomfort. TECHNIQUE: PA and lateral views of the chest. COMPARISON: None. FINDINGS: The lungs are clear and expanded. There is no demonstrated pleural abnormality. Normal size heart. Normal mediastinum and dylan. Normal visualized pulmonary arteries. There is atherosclerotic tortuosity of the aortic arch and descending thoracic aorta. Normal visualized thoracic spine. Normal visualized ribs, clavicles, and shoulders. There is no demonstrated abnormality of the visualized soft tissue structures of the upper abdomen. RAD/Chest PA and Lateral IMPRESSION: No acute abnormality is seen. 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 VITAMIN D,25 HYDROXY Collected: 01/21/2018 Status: F Source: [place] 8:04 AM [facility] [place] [place] REPOSITORY Order Comment: CBC,BMP FOR DR LOUIS WELL USE THOSE RESULTS PLEASE Order Date: 08/06/17 Order Info: [id number] - VITD25 TYPE CODE TESTS RESULT OUT OF RANGE REFERENCE UNITS LAB L506.1000 29.95-100.01 ng/mL Normal Vitamin D 45.6 25-OH Result Comment: Vitamin D 25(OH) Status Range Deficiency <20 ng/mL (50nmol/L) Insuffciency 20 - 30 ng/mL (50 - 75 nmol/L) Sufficiency 30 - 100 ng/mL (75 - 250 nmol/L) Toxicity >100 ng/mL (>250 nmol/L) Performed By: #### L506.1000, L500.4100, L501.7700 #### [facility] [address] [place], [place], [id number] LIPID PROFILE Collected: 01/21/2018 Status: F Source: [place] 8:04 AM [facility] [place] [place] REPOSITORY Order Comment: CBC,BMP FOR DR LOUIS WELL USE THOSE RESULTS PLEASE Order Date: 08/06/17 Order Info: [id number] - BMP Order Info: [id number] - LIPID TYPE CODE TESTS RESULT OUT OF RANGE REFERENCE UNITS LAB L501.4900 200 mg/dL Normal CHOL 170 Result Comment: <200 mg/dL Desirable 200-240 mg/dL Borderline >240 mg/dL High Risk LAB L501.5000 mg/dL Normal TRIG 63 Result Comment: The drugs N-Acetylcysteine and Metamizole may falsely depress this assay. Serum Triglycerides Reference Interval Normal <150 mg/dL Borderline high 150 - 199 mg/dL High 200 - 499 mg/dL Very High > or = 500 mg/dL LAB L501.6400 mg/dL Normal HDL 53 Result Comment: The drugs N-Acetylcysteine and Metamizole may falsely depress this assay. Reference Range HDL <40 mg/dL Low HDL Cholesterol HDL >or= 60 mg/dL High HDL Cholesterol LAB L501.6500 0-130 mg/dL Normal LDL 104 LAB L501.6600 5-40 mg/dL Normal VLDL 13 Performed By: #### L506.1000, L500.4100, L501.7700 #### [facility] [address] [place], [place], [id number] PHENYTOIN (DILANTIN) Collected: 01/21/2018 Status: F Source: [place] LEVEL 8:04 AM [facility] [place] [place] REPOSITORY Order Comment: Order Date: 08/06/17 Order Info: [id number] - DIL CBC,BMP FOR DR LOUIS WELL USE THOSE RESULTS PLEASE Time Medication is to be Given? 1900 TYPE CODE TESTS RESULT OUT OF REFERENCE UNITS RANGE LAB L501.7700 10.0-20.0 mL Low PHENYTOIN 6.8 Performed By: #### L506.1000, L500.4100, L501.7700 #### [facility] [address] [place], [address] CBC-COMPLETE BLOOD CNT Collected: 01/21/2018 Status: F Source: [place] NO DIFF 8:02 AM [facility] [place] [place] REPOSITORY TYPE CODE TESTS RESULT OUT OF RANGE REFERENCE UNITS LAB L100.1000 4.4-11.0 K/mm3 Normal WBC 4.4 LAB L100.1200 4.6-6.2 M/mm3 Normal RBC 5.00 LAB L100.1300 13.0-16.5 g/dl Normal HGB 15.5 LAB L100.1400 40-54 % Normal HCT 44.4 LAB L100.1500 80-94 fL Normal MCV 88.8 LAB L100.1600 27.0-32.0 pg Normal MCH 31.0 LAB L100.1700 32-36 g/gl Normal MCHC 34.9 LAB L100.1810 11.6-14.6 % Normal RDW CV 12.6 LAB L100.1820 35.1-43.9 fl Normal RDW SD 40.4 LAB L100.1900 150-450 K/mm3 Normal PLT 177 LAB L100.2000 6.2-12.0 fl Normal MPV 9.7 Performed By: #### L100.0500, L300.3900, L500.2500 #### [facility] [address] [place], [address] PROTHROMBIN TIME W/INR Collected: 01/21/2018 Status: F Source: [place] 8:02 AM [facility] [place] [place] REPOSITORY TYPE CODE TESTS RESULT OUT OF RANGE REFERENCE UNITS LAB L300.4150 11.7-14.9 SECONDS Normal PROTIME 13.0 LAB L300.4200 Normal INR 1.0 Performed By: #### L100.0500, L300.3900, L500.2500 #### [facility] [address] [place], [place], [id number] BASIC METABOLIC Collected: 01/21/2018 Status: F Source: [place] PROFILE (BMP) 8:02 AM [facility] [place] [place] REPOSITORY TYPE CODE TESTS RESULT OUT OF RANGE REFERENCE UNITS LAB L501.0100 74-106 mg/dL High GLU 159 Result Comment: Fasting Glucose result greater than or equal to 126 mg/dL suggests DIABETES MELLITUS per A.D.A. criteria. Please note revised GLUCOSE reference range effective 2017. LAB L501.1000 7-18 mg/dL Normal BUN 13 LAB L501.1100 0.70-1.30 mg/dL Normal CREAT,SERUM 0.72 Result Comment: The validity of the calculated GFR AND GFRAA in patients over 70 years has not been determined. Clinical correlation is essential. LAB L501.1110 >60 mL/min Normal EST GFR 117 Result Comment: Non- GFR Calc LAB L501.1115 >60 mL/min Normal EST GFR - AA 141 Result Comment: GFR Calc LAB L501.1300 10-20 RATIO Normal BUN/CRE 18.0 LAB L501.2200 8.5-10.1 mg/dL CA Normal 8.7 LAB L501.5300 136-145 mmol/L NA Normal 143 LAB L501.5600 3.5-5.1 mmol/L K Normal 4.3 LAB L501.5900 98-107 mmol/L CL Normal 106 LAB L501.6100 21.0-32.0 mmol/L Normal CO2 29.0 LAB L501.6200 5-15 Normal GAP 8 Performed By: #### L100.0500, L300.3900, L500.2500 #### [facility] [address] [place], [address] CARDIOLOGY VISIT Observed: 01/16/2018 Status: F Source: [place] REPORT 5:00 PM [facility] [place] [place] REPOSITORY [facility] [address] [place] [address] OFFICE VISIT Date of Service: 01/16/18 MR#: [id number] Acct: [id number] Name: BYRON AMBRIZ Rep #: [id number] : 1955 Provider: Bernardo Louis MD Age/Sex: 62/M Location: [facility] [place]: Signed HPI HPI Details: BYRON AMBRIZ, is a 62 M who presents to the office today for an initial evaluation. He has been having chest discomfort since October of this year described as a heaviness and a burning sensation with exertion. He apparently reported this to you in the office he was given an antacid with some improvement in his discomfort initially. He however continued to have the discomfort and was therefore scheduled to undergo a stress test. He had this performed where he exercised to a high metabolic workload of 13.5 metabolic equivalents he did develop chest tightness during the exertion with dissipated on rest. The nuclear images demonstrate evidence of anteroseptal and apical ischemia and hence he was referred here. As you know he does have a history of diabetes mellitus but his cholesterol has been under good control. He has had no neck arm or jaw discomfort and no radiation of this discomfort. No dizziness or diaphoresis and no claudication. His physical exam demonstrates clear lung lima regular rate and rhythm and no pedal edema. His electrocardiogram done here today demonstrates normal sinus rhythm with a rate of 69 bpm and no acute changes. Poor R-wave progression suggestive of possible previous anterior infarct is present. 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 Required: No Is patient in pain?: No Allergies No Known Allergies Allergy (Verified 01/16/18 16:21) Medications aspirin 81 mg tablet,delayed release 81 mg PO QDAY tab 01/15/18 [History Confirmed 01/16/18] metformin ER 500 mg tablet,extended release 24 hr 1,000 mg PO BID 90 Days #360 tab 01/15/18 [History Confirmed 01/16/18] multivitamin tablet 1 tab PO QDAY 01/15/18 [History Confirmed 01/16/18] omega-3 fatty acids 1,000 mg capsule 1,000 mg PO QDAY 01/15/18 [History Confirmed 01/16/18] pantoprazole 40 mg tablet,delayed release 40 mg PO QDAY 01/15/18 [History Confirmed 01/16/18] clopidogrel 75 mg tablet 75 mg PO QDAY #30 tab 01/16/18 [Rx Confirmed 01/16/18] phenytoin sodium extended 100 mg capsule 100 mg PO .COMPLEX 90 Days cap 01/16/18 [History Confirmed 01/16/18] [facility] Medical History GERD (gastroesophageal reflux disease) (Chronic) Type 2 diabetes mellitus without complications (Chronic) Seizure disorder (Chronic) Dyspnea (Acute) Chest pain (Acute) Abnormal cardiovascular stress test (Acute) Surgical History History of colonoscopy (Chronic) History of cholecystectomy (Chronic) Family History Mother , age 89 Hypertension Father , age 60's from rare neurological condition No problems noted. Brother CAD (coronary artery disease) Stented coronary artery Social History Smoking Status: Never smoker ROS Const Const: Negative for fatigue, weakness, body ache, fever(s), headache(s), chills, frequent falls, night sweats, daytime sleepiness, difficulty sleeping, excessive sweating, weight gain, weight loss, increased appetite, poor appetite, anorexia or other Eyes Eyes: Negative for blind spots, loss of peripheral vision, transient loss of vision, blurry vision, change in vision, double vision, floaters, tunnel vision or other ENT ENT: Negative for headache(s), dizziness, hearing loss, tinnitus, Nosebleed/epistaxis, balance problems, post nasal drip, lip swelling, tongue swelling, bleeding gums, hoarseness, neck pain, dry mouth or other Cardio Chest Pain: Yes (Started after Oct 08 having chest pain, with activity) Frequency: other (every time he exercized on treadmill, 4 to 5 times a week.) Character: other (pinpoint area midsternal, describes as annoying) Onset: exercise Location: mid sternal Duration: brief Exacerbation: exercise Relieving: rest Recurrence: exercise Palpitations: No Edema: None Resp Respiratory: Negative for SOB with activity, SOB at rest, SOB orthopnea\SOB lying down, Coughing up blood/hemoptysis, chest congestion, pain on inspiration, snoring, stridor, wheezing, crackles, paroxysmal nocturnal dyspnea or other GI GI: Negative nausea, vomiting, heartburn, constipation, belching, bloating, cramping, vomiting blood/hematemesis, bright, red blood in stools, black,tarry stools, loose stools, Difficulty Swallowing or other : Negative for hematuria, frequent nighttime urination/ nocturia, erectile dysfunction or abnormal vaginal bleeding Musc Musc: Negative for balance problems, muscle aches/ myalgia, muscle weakness or joint pain Skin Skin: Negative redness, non-healing lesions, rash, unusual bruising, skin ulcer, wounds, jaundice or other Neuro Neuro: Negative for weakness, headache(s), frequent falls, blurry vision, double vision, dizziness, lightheadedness, near syncope, syncope, orthostatic symptoms, confusion, memory loss, restless legs, vertigo, seizures, lack of coordination or other [place] Hematologic/Lymphatic: Negative for easy bleeding, easy bruising, enlarged lymph nodes or other Endo Endo: Negative for fatigue, excessive sweating, cold intolerance, heat intolerance, flushing, increased thirst/drinking, increased hunger, hair loss, hair growth or other Psych Psych: Negative for anxiety, depression, thoughts of harming anyone, thoughts of harming yourself, visual hallucinations, panic attacks or audible hallucinations Allergy Allergy/Immunology: Negative for lip swelling, Negative for tongue swelling, Negative for rash, Negative for throat swelling, Negative for hives Cardiology Exam Const Appearance: cooperative, healthy appearing, well developed, well groomed and no acute distress Nutritional Appearance: well nourished and average body habitus Orientation: alert, awake and oriented x3 Head Head: normal to inspection, normocephalic and atraumatic Ears: hearing grossly normal bilaterally and external ears normal Nose: external nose normal, nasal mucous membranes and turbinates normal, nares normal, septum normal, no nasal discharge Face and Sinus: face symmetric Mouth: oral mucosae normal, tongue normal, oropharynx normal and moist mucous membranes Teeth and gingiva: dentition normal Throat: posterior oropharynx normal, tonsils normal and uvula midline Eyes General: appearance normal, both eyes and all related structures Eyelids: eyelids normal Conjunctivae: conjunctivae normal Pupils: PERRL, normal by confrontation and accommodation normal EOM: EOM intact bilaterally Neck Neck: normal visual inspection, trachea midline and no JVD JVD: +5 Carotids: normal carotid upstroke and bounding pulses Chest Chest inspection: normal inspection of the chest, symmetric chest movement and normal respiratory effort Auscultation: Bilateral: Clear to Auscultation Cardio Palpation: normal PMI Rate: regular rate Rhythm: regular rhythm Heart sounds: S1 normal, S2 normal and normal, physiologic split S2; negative rub, gallop or murmur GI GI: normal to inspection, soft, no hepatosplenomegaly and bowel sounds present Neuro General: alert, awake, oriented x3, no focal sensory deficit, gait normal and moves all extremities Skin Skin: no rashes or lesions noted Extremities Pulses: Normal: Right Femoral Pulse, Left Femoral Pulse, Right Dorsalis Pedis Pulse, Left Dorsalis Pedis Pulse, Right Posterior Tibial Pulse, Left Posterior Tibial Pulse, Right Radial Pulse, Left Radial Pulse Lower Extremity Edema: None: Bilateral Musculoskel Musculoskeletal: No joint tenderness Psych Psychological: normal affect Assessment AND Plan 1. Chest pain due to myocardial ischemia, unspecified ischemic chest pain type I25.9 Plan He presents with chest discomfort and abnormal stress test. My recommendation to him as he has a history of diabetes mellitus is for him to undergo a cardiac catheterization. The risks benefits alternatives were explained to him and he is willing to consider this. In the meantime he will continue on his aspirin as well as clopidogrel loading. His lipid status has been excellent with the most recent lipid profile demonstrated total cholesterol of 169, LDL of 96 and HDL of 61. Thank you for allowing me to participate in the care of your patient. Please don't hesitate to call if any issues arise Orders Orders: Plan Detail Other Orders Orders: Other Medications New: Follow Up 3 Months (jhr) Coding Level of Care Code Off vis,new,level 4 Diagnoses Chest pain due to myocardial ischemia, unspecified ischemic chest pain type I25.9 Chest pain type: chest pain due to myocardial ischemia Ischemic chest pain type: unspecified angina pectoris type Coding Level of Care Code Off vis,new,level 4 Diagnoses Chest pain due to myocardial ischemia, unspecified ischemic chest pain type I25.9 Chest pain type: chest pain due to myocardial ischemia Ischemic chest pain type: unspecified angina pectoris type 01/16/18 1700 <Electronically signed by Bernardo Louis MD> Date Bernardo Louis MD Cosigner Signature: Date (if applicable) CC: Libby Arias MD 12 LEAD EKG PERFORMED Observed: 01/16/2018 Status: F Source: [place] BY BMS 4:35 PM [facility] [place] [place] REPOSITORY [facility] [address] [place] [address] 12 Lead EKG performed by BMS 01/16/184 MR#: [id number] Acct: [id number] Name: BYRON AMBRIZ Rep #: [id number] : 1955 62 From: Bernardo Louis MD Attending Dr: Bernardo Louis MD Status: DEP AMB Ordering Dr: Bernardo Louis MD Date: 01/16/18 Location: [facility] [place] Sex: M C Admitted: BMS/12 Lead EKG performed by BMS ECG Report Interpretation Sinus Rhythm -Inferior infarct -probably not recent -Poor R-wave progression -nonspecific -consider old anterior infarct. ABNORMAL Electronically signed on 01/22/2018 at 08:52 by Bernardo Louis 01/22/18 0857 Date Bernardo Louis MD CC: Libby Arias MD Date Dictated: 01/16/181633 Date Transcribed: 01/16/181633 Pattern Wheel Maker: [place] Signed STRESS REPORT Observed: 12/18/2017 Status: F Source: [place] 12:25 PM [facility] [place] [place] REPOSITORY [facility] Cardiovascular Services [address] [place] [address] MR#: [id number] Acct: [id number] Name: BYRON AMBRIZ Rep #: [id number] : 1955 62 From: Bernardo Louis MD Primary Care: Libby Arias MD Status: REG CLI Ordering Dr: Sex: M C Stress Test Report Exercise myocardial perfusion stress test. 62-year-old man with a history of coronary artery disease and chest pain. Stress protocol: Resting EKG demonstrates sinus rhythm with rate of 61 bpm. Resting blood pressure is 162/90 mmHg. The patient exercised according to regular Donnie protocol for total duration of 11 minutes and 30 seconds. Patient completed 2 minutes and 30 seconds to stage IV of the Donnie protocol. The maximum heart rate attained was 136 bpm which was 86% of maximum predicted heart rate the maximum workload attained was 13.5 metabolic equivalents. Patient maintained sinus rhythm throughout the recording with occasional premature atrial complexes noted. Occasional blocked atrial complexes noted also. At rest there were no ST or T-wave changes noted suggest ischemia peak exercise upsloping ST changes only were noted with normally the criteria for ischemia. Patient however complained of 3-4/10 chest tightness noted during exertion which dissipated on rest. The resting blood pressure is 162/90 with a peak blood pressure 180/84. Rate pressure product was 23,100. Myocardial perfusion protocol. 14.2 mCi of technetium 99m sestamibi was injected at rest. The patient exercised for 11 minutes and 30 seconds attaining 86% maximum predicted heart rate and a workload of 13.5 mets. At peak exercise 44.5 mCi of technetium 99m sestamibi was injected stress images were obtained stress and rest images were reconstructed and compared in the short axis vertical long and horizontal long axis. Gated images were also obtained. Perfusion SPECT analysis: There is a medium-sized defect noted in the mid to distal anteroseptal wall as well as the inferoseptal wall. There is a defect also noted in the apex of medium size. The resting images demonstrate improvement in the apex and distal anteroseptal wall suggestive of ischemia in this territory. Gated SPECT analysis: The gated ejection fraction is noted to be 60%. There is evidence of apical hypokinesis noted. Conclusion: Exercise myocardial perfusion stress test with evidence of distal anteroseptal and apical ischemia. Small apical infarct noted. Clinical angina noted at a high workload with excellent functional capacity.. 12/18/17 1225 <Electronically signed by Bernardo Louis MD> Date Bernardo Louis MD CC: Libby Arias MD Date Dictated: 12/18/171218 Date Transcribed: 12/18/171218 Pattern Wheel Maker: CO Signed PROGRESS Observed: 11/27/2017 Status: COMPLETED Source: [place] 3:05 PM CLINIC OTHER CAMPUS REPOSITORY HNO ID: [id number] Author: Marcie Lerma Service: (none) Author Type: Physician Type: Progress Notes Filed: 11/27/2017 6:03 PM Note Text: Subjective HPI Comments: Date of encounter: 11/27/2017 Byron Ambriz is a 62 year old male who presents for Diabetes management Important Lab History: HBA1C: 07/2016: 6.1%, 08/2016: 6.8%, 05/2017: 6%, 07/2017: 6.8%, 11/2017: 6.6% Thyroid Function Testin05/2017: TSH 1.500 (0.358-3.740 uIU/mL), free T4 0.89 (0.76-1.46 ng/dL), Renal Function Testin08/2016: Creatinine 0.72, 05/2017: creatinine 0.67 mg/dL, eGFR>60, Urine for Microalbumin: 05/2017: microalbumin to creatinine ratio ok, Lipid Profile: 08/2016: TC 169, HDL 61, LDL 96 TG 58 Liver Profile: 05/2017: Liver function tests ok, Dilated Eye Exam: Patient educated to have ophthalmology visits at least once a year. 2006: Around this time diagnosed with Type 2 Diabetes Mellitus. Started on Metformin therapy. 2008: Had pancreatitis. 2015: Around this time, Metformin oral agent discontinued, janumet started. Patient self switched back to solo Metformin therapy around 08/2016. 03/2017: Patient self switched back to Janumet. 05/2017: First time office visit for Type 2 Diabetes Mellitus management. On janumet at this time. 05/2017: Glutamic Acid Decarboxylase (CHERYL-65) antibody <5 0 (<5.0 IU/mL), insulin autoantibody <0.4 (<0.4 U/mL), IA-2 antibody <0.6 (<1.0 U/mL), testing done at [facility]. 05/2017: c-peptide 3.6 (0.8-3.2 ng/mL) with glucose 100 mg/dL, ? Orals: Metformin 500 mg ER two tabs twice a day self monitoring blood glucose data: see logs, occasional elevations depending on the meal type/size. Review of Systems Constitutional: Negative for chills, diaphoresis, fever and malaise/fatigue. HENT: Negative for congestion, nosebleeds and sore throat. Eyes: Negative for pain and discharge. Respiratory: Negative for cough, hemoptysis, sputum production, shortness of breath and wheezing. Cardiovascular: Negative for palpitations, orthopnea and leg swelling. Gastrointestinal: Positive for heartburn (improved now with treatment, pcp aware and monitoring, pantoprazole). Negative for abdominal pain, blood in stool, constipation, diarrhea, nausea and vomiting. Genitourinary: Negative for dysuria, frequency, hematuria and urgency. Musculoskeletal: Negative for back pain, joint pain and myalgias. Skin: Negative for itching and rash. Neurological: Negative for tingling and loss of consciousness. Psychiatric/Behavioral: Negative for depression and suicidal ideas. The patient does not have insomnia. PAST MEDICAL HISTORY Diagnosis Date - Hemorrhage of gastrointestinal tract, unspecified - Internal hemorrhoids without mention of complication - Other convulsions none since 1975 - Pancreatitis - Seizures (HCC) - Type 2 diabetes mellitus with hyperglycemia (HCC) PAST SURGICAL HISTORY Procedure Laterality Date - COLONOSCOP W/ OR W/O [facility] SPEC 04/15/08 - LAP CHOLECYSTECT/CHOLANGIOGRAPHY FAMILY HISTORY Problem Relation Age of Onset - Hypertension Mother - Heart Brother - Lipids Brother Social History Marital status: Spouse name: Years of education: Number of children: Social History Main Topics Smoking status: Never Smoker Smokeless status: Former User Types: Chew Alcohol use: Yes Comment: 1x/month beer Drug use: No Current Meds pantoprazole DR (PROTONIX) 40 mg tablet metFORMIN ER (GLUCOPHAGE XR) 500 mg 24 hr tablet Take 2 tablets by mouth twice daily. phenytoin ER (DILANTIN) 100 mg ER capsule ASPIRIN ORAL Take by mouth. DOCOSAHEXANOIC ACID/EPA (FISH OIL ORAL) Take by mouth. MULTIVITAMIN TAB Take one(1) tablet daily. Objective BP 140/79 Pulse 80 Ht 5' 7.5 (1.72m) Wt 171 lb (77.6kg) BMI 26.37 kg/(m2). Physical Exam Constitutional: He is oriented to person, place, and time and well-developed, well-nourished, and in no distress. He appears not jaundiced. Non-toxic appearance. No distress. HENT: Head: Normocephalic and atraumatic. Eyes: Conjunctivae and EOM are normal. No scleral icterus. Neck: Neck supple. No thyromegaly present. Cardiovascular: Normal rate, regular rhythm and intact distal pulses. Pulmonary/Chest: Effort normal and breath sounds normal. No respiratory distress. He has no wheezes. He has no rales. Abdominal: Soft. There is no tenderness. There is no rebound and no guarding. Musculoskeletal: He exhibits no edema or tenderness. Lymphadenopathy: He has no cervical adenopathy. Neurological: He is alert and oriented to person, place, and time. He has intact cranial nerves. Skin: Skin is warm and dry. Psychiatric: Mood, affect and judgment normal. His mood appears not anxious. ASSESSMENT/PLAN: 1. Type 2 diabetes mellitus with hyperglycemia, with long- term current use of insulin ([facility]) - ICD9: 250.00, 790.29, V58.67, ICD10: E11.65, Z79.4 - HGBA1C B/O (AG) Plan of Care: 1. HbA1C 6.6%, improving. 2. I offered for Brayan to see a dairy husbandman for diabetic meal planning/teaching, he elected to think about it for now. 3. Discussed therapeutic lifestyle changes. 4. Self monitoring blood glucose log sheet(s) were given to the patient. Instructed to fill out sheets and bring log to next visit. 5. Answered all questions. 6. Patient verbalized understanding of all the above instructions. This is a Incident-To type of office visit. I am following the treatment plan set up by my collaborating physician. Please see collaborating physician statement below. Ana Martinez CNP Collaborating Physician documentation: I have reviewed the history and physical note performed by Ana Martinez CNP, and added the following comments: Overall, the diabetes control is at [place] [employer] targets. Continue meds. Further diabetic education was done by my PHYSICIAN ASSISTANT PSYCHIATRY today. Marcie Lerma MD CNOV Observed: 11/27/2017 Status: COMPLETED Source: [place] 3:00 PM [facility] OTHER CAMPUS REPOSITORY Office Visit (AGENDOG) BYRON AMBRIZ ([id number]) 1955 M Date Time Provider Department 11/27/17 3:00 PM ANA MARTINEZ ([facility] During your visit today, we recorded the following information about you: Pulse Blood pressure Weight Height 80/minute 140/79 77.6 kg 1.715 m Marcie Lerma MD 11/27/2017 6:03 PM Signed Subjective HPI Comments: Date of encounter: 11/27/2017 Byron Ambriz is a 62 year old male who presents for Diabetes management Important Lab History: HBA1C: 07/2016: 6.1%, 08/2016: 6.8%, 05/2017: 6%, 07/2017: 6.8%, 11/2017: 6.6% Thyroid Function Testin05/2017: TSH 1.500 (0.358-3.740 uIU/mL), free T4 0.89 (0.76-1.46 ng/dL), Renal Function Testin08/2016: Creatinine 0.72, 05/2017: creatinine 0.67 mg/dL, eGFRANDgt;60, Urine for Microalbumin: 05/2017: microalbumin to creatinine ratio ok, Lipid Profile: 08/2016: TC 169, HDL 61, LDL 96 TG 58 Liver Profile: 05/2017: Liver function tests ok, Dilated Eye Exam: Patient educated to have ophthalmology visits at least once a year. 2007: Around this time diagnosed with Type 2 Diabetes Mellitus. Started on Metformin therapy. 2008: Had pancreatitis. 2015: Around this time, Metformin oral agent discontinued, janumet started. Patient self switched back to solo Metformin therapy around 08/2016. 03/2017: Patient self switched back to Janumet. 05/2017: First time office visit for Type 2 Diabetes Mellitus management. On janumet at this time. 05/2017: Glutamic Acid Decarboxylase (CHERYL-65) antibody ANDlt;5 0 (ANDlt;5.0 IU/mL), insulin autoantibody ANDlt;0.4 (ANDlt;0.4 U/mL), IA-2 antibody ANDlt;0.6 (ANDlt;1.0 U/mL), testing done at [facility]. 05/2017: c-peptide 3.6 (0.8-3.2 ng/mL) with glucose 100 mg/dL, ? Orals: Metformin 500 mg ER two tabs twice a day ANDquot;self monitoring blood glucose dataANDquot;: see logs, occasional elevations depending on the meal type/size. Review of Systems Constitutional: Negative for chills, diaphoresis, fever and malaise/fatigue. HENT: Negative for congestion, nosebleeds and sore throat. Eyes: Negative for pain and discharge. Respiratory: Negative for cough, hemoptysis, sputum production, shortness of breath and wheezing. Cardiovascular: Negative for palpitations, orthopnea and leg swelling. Gastrointestinal: Positive for heartburn (improved now with treatment, pcp aware and monitoring, pantoprazole). Negative for abdominal pain, blood in stool, constipation, diarrhea, nausea and vomiting. Genitourinary: Negative for dysuria, frequency, hematuria and urgency. Musculoskeletal: Negative for back pain, joint pain and myalgias. Skin: Negative for itching and rash. Neurological: Negative for tingling and loss of consciousness. Psychiatric/Behavioral: Negative for depression and suicidal ideas. The patient does not have insomnia. PAST MEDICAL HISTORY Diagnosis Date - Hemorrhage of gastrointestinal tract, unspecified - Internal hemorrhoids without mention of complication - Other convulsions none since 1975 - Pancreatitis - Seizures (HCC) - Type 2 diabetes mellitus with hyperglycemia (HCC) PAST SURGICAL HISTORY Procedure Laterality Date - COLONOSCOP W/ OR W/O [facility] SPEC 04/15/08 - LAP CHOLECYSTECT/CHOLANGIOGRAPHY FAMILY HISTORY Problem Relation Age of Onset - Hypertension Mother - Heart Brother - Lipids Brother Social History Marital status: Spouse name: Years of education: Number of children: Social History Main Topics Smoking status: Never Smoker Smokeless status: Former User Types: Chew Alcohol use: Yes Comment: 1x/month beer Drug use: No Current Meds pantoprazole DR (PROTONIX) 40 mg tablet metFORMIN ER (GLUCOPHAGE XR) 500 mg 24 hr tablet Take 2 tablets by mouth twice daily. phenytoin ER (DILANTIN) 100 mg ER capsule ASPIRIN ORAL Take by mouth. DOCOSAHEXANOIC ACID/EPA (FISH OIL ORAL) Take by mouth. MULTIVITAMIN TAB Take one(1) tablet daily. Objective BP 140/79 Pulse 80 Ht 5' 7.5ANDquot; (1.72m) Wt 171 lb (77.6kg) BMI 26.37 kg/(m2). Physical Exam Constitutional: He is oriented to person, place, and time and well-developed, well-nourished, and in no distress. He appears not jaundiced. Non-toxic appearance. No distress. HENT: Head: Normocephalic and atraumatic. Eyes: Conjunctivae and EOM are normal. No scleral icterus. Neck: Neck supple. No thyromegaly present. Cardiovascular: Normal rate, regular rhythm and intact distal pulses. Pulmonary/Chest: Effort normal and breath sounds normal. No respiratory distress. He has no wheezes. He has no rales. Abdominal: Soft. There is no tenderness. There is no rebound and no guarding. Musculoskeletal: He exhibits no edema or tenderness. Lymphadenopathy: He has no cervical adenopathy. Neurological: He is alert and oriented to person, place, and time. He has intact cranial nerves. Skin: Skin is warm and dry. Psychiatric: Mood, affect and judgment normal. His mood appears not anxious. ASSESSMENT/PLAN: 1. Type 2 diabetes mellitus with hyperglycemia, with long- term current use of insulin ([facility]) - ICD9: 250.00, 790.29, V58.67, ICD10: E11.65, Z79.4 - HGBA1C B/O (AG) Plan of Care: 1. HbA1C 6.6%, improving. 2. I offered for Brayan to see a dairy husbandman for diabetic meal planning/teaching, he elected to ANDquot;think about itANDquot; for now. 3. Discussed therapeutic lifestyle changes. 4. Self monitoring blood glucose log sheet(s) were given to the patient. Instructed to fill out sheets and bring log to next visit. 5. Answered all questions. 6. Patient verbalized understanding of all the above instructions. This is a ANDquot;Incident-ToANDquot; type of office visit. I am following the treatment plan set up by my collaborating physician. Please see collaborating physician statement below. Ana Martinez CNP Collaborating Physician documentation: I have reviewed the history and physical note performed by Ana Martinez CNP, and added the following comments: Overall, the diabetes control is at [place] [employer] targets. Continue meds. Further diabetic education was done by my PHYSICIAN ASSISTANT PSYCHIATRY today. Marcie Lerma MD Referring Provider: ANA MARTINEZ ([facility]) [[id number]] Allergies As of Date: 11/27/2017 (No Known Allergies) Date Reviewed: 11/27/2017 Reviewed by: Ana Barlow ([facility]) Juan - Fully Assessed Reason for Visit: Diabetes [34] Primary Visit Diagnosis:Type 2 diabetes mellitus with hyperglycemia, without long-term current use of insulin (HCC) [E11.65] Order(s):HGBA1C B/O (AG) [[id number]] Order #: [id number] Prescriptions as of 11/27/2017 Sig: PANTOPRAZOLE 40 MG TABLET,DEL* METFORMIN ER 500 MG TABLET,EX* Take 2 tablets by mouth twice* PHENYTOIN SODIUM EXTENDED 100* ASPIRIN ORAL Take by mouth. FISH OIL ORAL Take by mouth. * MULTIVITAMIN TABLET Take one(1) tablet daily. Problem List As Of Date 11/27/2017 Noted Resolved Pancreatitis [K85.90] INVALID FOR* Type 2 diabetes mellitus with hyperglycemia (HC* Disposition: Return in about 3 months (around 02/24/2018). Follow-up and Disposition History Recorded Encounter Status:Closed by MARCIE LERMA MD on 11/27/17 ALLERGIES ALLERGIES DATE TYPE / CODE NAME / CODE REACTION SEVERITY SOURCE 10/17/2018 Drug No Known Unknown [facility] Allergy/416 Allergies/I58873 Hospital 434863(SNOM 0388(RXNORM) Repository ED CT) Drug NO KNOWN [facility] Class/21660 ALLERGIES Main [place] 1003(SNOMED Repository CT) NG/[id number] NO KNOWN [facility] 6(SNOMED ALLERGIES [facility] CT) Repository ENCOUNTERS ENCOUNTERS ADMIT/DISCHARGE ACCOUNT NUMBER ADMITTING ENCOUNTER LOCATION SOURCE CLASS 10/24/2018 [id number] Ambulatory [facility] ding:MTLAB Repository 10/17/2018/10/17/19 [id number] Ambulatory BMSBuilding: [place] 19 [facility] Repository 09/11/2018 [id number] [facility] ding:DC Repository 08/05/2018 [id number] [facility] ding:MFPLAB Repository 07/25/2018 [id number] [facility] ding:MTLAB Repository 07/18/2018 [id number] Ambulatory [place] [facility] ding:CR Repository 07/16/2018/07/16/20 [id number] Ambulatory [address] Other [place] Repository 07/16/2018/07/16/20 [id number] Ambulatory [address] MEDICAL Repository CENTERBuildi ng:EAST 07/11/2018/08/07/20 [id number] Ambulatory [place] 18 [facility] ding:DC Repository 07/05/2018 [id number] Ambulatory [facility] MEDICAL Repository CENTERBuildi ng:AGENDOG 06/19/2018/07/07/20 [id number] Ambulatory [place] 18 [facility] ding:CR Repository 06/13/2018/07/07/20 [id number] Ambulatory [place]ella Antonella 18 [facility] ding:DC Repository 06/07/2018/06/07/20 [id number] Ambulatory Antonella Antonella 18 [facility] ding:CR Repository 06/04/2018 [id number] Ambulatory [facility] MEDICAL Repository CENTERBuildi ng:AGENDOG 05/09/2018/06/07/20 [id number] Ambulatory [place] 18 [facility] ding:DC Repository 05/06/2018/05/07/20 [id number] Ambulatory [place]ella [place] 18 [facility] ding:CR Repository 04/11/2018/05/07/20 [id number] Ambulatory [place] 18 [facility] ding:DC Repository 04/05/2018/04/06/20 [id number] Ambulatory [place] 18 [facility] ding:CR Repository 03/29/2018/03/29/20 [id number] Ambulatory BMSBuilding: Antonella 18 [facility] Repository 03/25/2018/03/25/20 [id number] Ambulatory [address] Repository 03/22/2018/03/22/20 [id number] Ambulatory [address] Other [place] Repository 03/22/2018/03/22/20 [id number] Ambulatory [address] MEDICAL Repository CENTERBuildi ng:AGVASACC 03/21/2018 [id number] Ambulatory [facility] ding:CR Repository 03/20/2018/03/20/20 [id number] Ambulatory [address] Main [place] Repository 03/01/2018/03/01/20 [id number] Ambulatory [address] Other [place] Repository 03/01/2018/03/01/20 [id number] Ambulatory [address] MEDICAL Repository CENTERBuildi ng:AGVASACC 02/22/2018 [id number] Ambulatory [facility] MEDICAL Repository CENTERBuildi ng:AGENDOG 02/20/2018 [id number] Ambulatory [facility] MEDICAL Repository CENTERBuildi ng:AGVASACC 02/16/2018/02/24/20 [id number] HEATHER, RADAMES Inpatient [address] MEDICAL Repository CENTERBuildi nRoom: 4219Bed: 02/16/2018/02/24/20 [id number] RADAMES ROMERO M Inpatient [address] Other [place] Repository 02/16/2018/02/17/20 [id number] Emergency [address] ding:ED Repository 01/24/2018/01/25/20 [id number] Ambulatory [address] Repository 01/23/2018 [id number] Ambulatory BMSBuilding: [facility] Repository 01/23/2018 [id number] Ambulatory [facility] ding:CLSP Repository 01/21/2018 [id number] Ambulatory [facility] ding:LAB.FUT Repository URE 01/16/2018/01/17/20 [id number] Ambulatory BMSBuilding: [address] Repository 01/15/2018 [id number] Ambulatory BMSBuilding: [facility] Repository 12/18/2017 [id number] Ambulatory BMSBuilding: [facility] Repository 12/18/2017 [id number] Ambulatory [facility] ding:CVS Repository 11/27/2017/11/27/19 [id number] Ambulatory [address] Other [place] Repository 11/27/2017/11/27/19 [id number] Ambulatory [address] MEDICAL Repository CENTERBuildi ng:AGENDOG PAYERS PAYERS ENCOUNTER GUARANTOR PAYER SUBSCRIBER SOURCE 10/24/2018 BYRON L Primary BYRON L [place] [id number] [place] Insurance:MEDICAL SPARRDOB: [facility] [id number] [id number]: (330) Number: Repository [phone] () [id number] Date:2865-94-54IE [address] [place] [address]QQ: 10/24/2018 Secondary NOT GIVENUNK Antonella Insurance:SELF PAY [facility] Number: Effective Repository Date:2018-10-24 10/17/2018 BYRON L Primary BYRON L [place] [id number] [place] Insurance:MEDICAL SPARRDOB: [facility] [id number] Ville [id number]: (330) Number: Repository [phone] () [id number] Date:6864-47-52WP [place] [id number]: 10/17/2018 Secondary NOT GIVENUNK [place] Insurance:SELF PAY [facility] Number: Effective Repository Date:2018-10-17 09/11/2018 BYRON L Primary BYRON L Antonella [id number] [place] Insurance:MEDICAL SPARRDOB: [facility] [id number] [facility] 1980[address]Sem: (330) Number: Repository [phone] () [id number] Date:9387-66-22RO [address] [address]OO: 09/11/2018 Secondary NOT GIVENUNK [place]ella Insurance:SELF PAY [facility] Number: Effective Repository Date:2018-08-08 08/05/2018 BYRON L Primary BYRON L [place] [id number] [place] Insurance:MEDICAL SPARRDOB: [facility] [id number] Ville [address]Tel: (330) Number: Repository [phone] () [id number] Date:0967-34-67DB [place] [id number]: 08/05/2018 Secondary NOT GIVENUNK Antonella Insurance:SELF PAY [facility] Number: Effective Repository Date:2018-08-05 07/25/2018 YBRON L Primary BYRON L Antonella [id number] [facility] Insurance:MEDICAL SPARRDOB: [facility] [id number] Ville [address]Tel: (330) Number: Repository [phone] () [id number] Date:7989-69-32SJ [place] [id number]: 07/25/2018 Secondary NOT GIVENUNK [place] Insurance:SELF PAY [facility] Number: Effective Repository Date:2018-07-25 07/18/2018 BYRON L Primary BYRON L [place] [id number] [place] Insurance:MEDICAL SPARRDOB: [facility] [id number] Ville [address]Tel: (330) Number: Repository [phone] () [id number] Date:3084-12-03GY [place] [id number]: 07/18/2018 Secondary NOT GIVENUNK [place] Insurance:SELF PAY [facility] Number: Effective Repository Date:2018-07-08 07/16/2018 BYRON L Primary Insurance:MMO BYRON L [facility] SPARRDOB: [facility]PERMED [facility] SPARRDOB: [facility] [id number] Number: [id number] Repository [facility] [place] [id number] [place] [address]Tel: Date: (HP) 07/11/2018 BYRON L Primary BYRON L [place] [id number] [place] Insurance:MEDICAL SPARRDOB: [facility] [id number] Hospital [address]Gvu: (330) Number: Repository [phone] () [id number] Date:5942-34-35PC [address] [address]LW: 07/11/2018 Secondary NOT GIVENUNK [place] Insurance:SELF PAY [facility] Number: Effective Repository Date:2018-07-08 07/05/2018 BYRON L Primary Insurance:MMO BYRON L [facility] SPARRDOB: [facility] Number: [id number] [facility]ository [facility] [id number] [place] [address]Ops: Date: (HP) 06/19/2018 BYRON L Primary BYRON L [place] [id number] [place] Insurance:MEDICAL SPARRDOB: [facility] [id number] Ville [address]Tel: (330) Number: Repository [phone] () [id number] Date:0333-70-21JT [place] [id number]: 06/19/2018 Secondary NOT GIVENUNK [place] Insurance:SELF PAY [facility] Number: Effective Repository Date:2018-06-08 06/13/2018 BYRON L Primary BYRON L [place] [id number] [place] Insurance:MEDICAL SPARRDOB: [facility] [id number] Hospital [address]Afa: (330) Number: Repository [phone] () [id number] Date:0882-98-11PT [address] [address]WI: 06/13/2018 Secondary NOT GIVENUNK [place] Insurance:SELF PAY [facility] Number: Effective Repository Date:2018-06-08 06/07/2018 BYRON L Primary BYRON L [place] [id number] [place] Insurance:MEDICAL SPARRDOB: [facility] [id number] Hospital [address]Loy: (330) Number: Repository [phone] () [id number] Date:2581-79-95YJ [address] [address]TS: 06/07/2018 Secondary NOT GIVENUNK [place] Insurance:SELF PAY [facility] Number: Effective Repository Date:2018-05-08 06/04/2018 BYRON L Primary Insurance:MMO BYRON L [facility] SPARRDOB: [facility] Number: [id number] Repository [facility] [id number] [place] [address]Xnp: Date: (HP) 05/09/2018 BYRON L Primary BYRON L [place]ella [id number] [place] Insurance:MEDICAL SPARRDOB: [facility] [id number] Ville [address]Tel: (330) Number: Repository [phone] () [id number] Date:0537-23-32PF [place] [id number]: 05/09/2018 Secondary NOT GIVENUNK [place] Insurance:SELF PAY [facility] Number: Effective Repository Date:2018-05-08 05/06/2018 BYRON L Primary BYRON L [place] [id number] [place] Insurance:MEDICAL SPARRDOB: [facility] [id number] Hospital [address]Zhf: (330) Number: Repository [phone] () [id number] Date:3114-36-69OU [address] [address]TX: 05/06/2018 Secondary NOT GIVENUNK [place] Insurance:SELF PAY [facility] Number: Effective Repository Date:2018-04-07 04/11/2018 BYRON L Primary BYRON L Antonella [id number] [place] Insurance:MEDICAL SPARRDOB: [facility] [id number] Ville [id number]: (330) Number: Repository [phone] () [id number] Date:6323-14-03CK [address] [address]GL: 04/11/2018 Secondary NOT GIVENUNK [place] Insurance:SELF PAY [facility] Number: Effective Repository Date:2018-04-09 04/05/2018 BYRON L Primary BYRON L [place] [id number] [place] Insurance:MEDICAL SPARRDOB: [facility] [id number] [place]ille [address]Tel: (330) Number: Repository [phone] () [id number] Date:0943-89-76PH [address] [address]HM: 04/05/2018 Secondary NOT GIVENUNK [place] Insurance:SELF PAY [facility] Number: Effective Repository Date:2018-03-21 03/29/2018 BYRON L Primary BYRON L [place] [id number] [place] Insurance:MEDICAL SPARRDOB: [facility] [id number] [place]ille [address]Tel: (330) Number: Repository [phone] () [id number] Date:4013-04-52BK [address] [address]GV: 03/29/2018 Secondary NOT GIVENUNK [place] Insurance:SELF PAY [facility] Number: Effective Repository Date:2018-03-29 03/22/2018 BYRON L Primary Insurance:MMO BYRON L [facility] SP[facility]DOB: [facility] SPARRDOB: [facility] Number: [id number] Repository [facility] [id number] [place] [address]Aca: Date: (HP) 03/21/2018 BYRON L Primary BYRON L [place] [id number] [place] Insurance:MEDICAL SPARRDOB: [place] [facility] [id number] Hospital [address]Pgm: (330) Number: Repository [phone] (HP) [id number] Date:6210-60-86GN [address] [place] [address]VL: 03/21/2018 Secondary NOT GIVENUNK [place] Insurance:SELF PAY [facility] Number: Effective Repository Date:2018-03-20 03/01/2018 BYRON L Primary Insurance:MMO BYRON L [facility] SPARRDOB: [employer] SPARRDOB: [facility] Number: [id number] Repository AICHASTER REINALDO[place]E, [id number] [place] [address]Aly: Date: (HP) 02/22/2018 BYRON Primary Insurance:MMO BYRON [facility] SPARRDOB: [facility] SPARRDOB: [facility] Number: [id number] Repository [place] NYDIAHREVE, [id number] [place] [address]Cxz: Date: (HP) 02/20/2018 BYRON L Primary Insurance:MMO BYRON L [facility] SPARRDOB: [employer] SPARRDOB: [facility] Number: [id number] Repository [address]HASTER RDSHREVE, [id number] [place] [address]Fls: Date: (HP) 02/16/2018 BYRON L Primary Insurance:MMO BYRON L [facility] SPARRDOB: [facility] SPARRDOB: [facility] Number: [id number] Repository K[place] RDSHREVE, [id number] [place] [address]Jwb: Date: (HP) 02/16/2018 BYRON L Primary BYRON L Antonella [id number] [facility] Insurance:MEDICAL SPARRDOB: [place] [facility] [id number] Hospital [address]Mod: (330) Number: Repository [phone] () [id number] Date:6511-17-86MQ [address] [address]ZB: 02/16/2018 Secondary NOT GIVENUNK [place] Insurance:SELF PAY [facility] Number: Effective Repository Date:2018-02-16 01/23/2018 BYRON L Primary BYRON L [place] [id number] [place] Insurance:MEDICAL SPARRDOB: [facility] [id number] Hospital [address]Aze: (330) Number: Repository [phone] () [id number] Date:6043-97-28AT [address] [address]WP: 01/23/2018 Secondary NOT GIVENUNK [place] Insurance:SELF PAY [facility] Number: Effective Repository Date:2018-01-23 01/23/2018 BYRON L Primary BYRON L Antonella [id number] [place] Insurance:MEDICAL SPARRDOB: [facility] [id number] Hospital [address]Qko: (330) Number: Repository [phone] () [id number] Date:2680-58-27RX [address] [address]DP: 01/23/2018 Secondary NOT GIVENUNK [place] Insurance:SELF PAY [facility] Number: Effective Repository Date:2018-01-16 01/21/2018 BYRON L Primary BYRON L [place] [id number] [place] Insurance:MEDICAL SPARRDOB: [facility] [id number] Hospital [address]Xou: (330) Number: Repository [phone] () [id number] Date:0131-61-42DY [address] [address]TJ: 01/21/2018 Secondary NOT GIVENUNK [place] Insurance:SELF PAY [facility] Number: Effective Repository Date:2018-01-17 01/16/2018 BYRON L Primary BYRON Devries [place] [id number] [place] Insurance:MEDICAL SPARRDOB: [facility] [id number] [facility] [address]Svl: (330) Number: Repository [phone] () [id number] Date:2713-34-30NG [place] [address]01[address]WP: 01/16/2018 Secondary NOT GIVENUNK [place]ella Insurance:SELF PAY [facility] Number: Effective Repository Date:2018-01-16 01/15/2018 Bryon L Primary Byron Devries [place] [id number] [place] Insurance:MEDICAL SparrDOB: [facility] [id number] [place] [address]Tel: (330) Number: Repository [phone] () [id number] Date:3133-18-03UK [place] [address]01[address]WP: 01/15/2018 Secondary NOT GIVENUNK Antonella Insurance:SELF PAY [facility] Number: Effective Repository Date:2018-01-15 12/18/2017 BYRON L Primary BYRON Devries Antonella [id number] [place] Insurance:MEDICAL SPARRDOB: [facility] [id number] Hospital [address]Vbq: (330) Number: Repository [phone] () [id number] Date:8627-31-55YQ [address] [address]RD: 12/18/2017 Secondary NOT GIVENUNK Antonella Insurance:SELF PAY [facility] Number: Effective Repository Date:2017-12-18 12/18/2017 Byron L Primary Byron Devries Antonella [id number] [place] Insurance:MEDICAL SparrDOB: [facility] [id number] Hospital [address]Xqm: (330) Number: Repository [phone] () [id number] Date:0708-98-39LO [address] [address]SB: 12/18/2017 Secondary NOT GIVENUNK [place] Insurance:[facility]LF [facility] Number: Effective Repository Date:2017-12-03 11/27/2017 [place] Primary Insurance:[facility] SPARRDOB: [facility] SPARRDOB: [facility] [id number] Number: [id number] Repository JAYCEE [place], [id number] [place] [address]Gva: Date: ()
== END ==
PROVIDERS: Family Provider Family Medicine; PCP Family Medicine; Referring Provider Internal Medicine Cardiovascular Disease; Visit Provider Internal Medicine Cardiovascular Disease
DX: E78.5 Hyperlipidemia, unspecified (principal)
CPT/HCPCS: 36415; 80061; 80076

== ENCOUNTER → 2019-07-31 07:40 | Outpatient (CLI) | payer OTHER, SELFPAY ==
[2018-10-17 10:49] VITALS: BMI 25.4
[2019-07-31 09:56] LABS: Absolute Lymphocyte Count 1.35 X10^3/uL (0.83-4.51); Absolute Neutrophil Count 2.3 X10^3/uL (2.0-7.7); Basophil# 0.04 X10^3/uL; Basophil% 0.9 % (0-1); Eosinophil# 0.57 X10^3/uL; Eosinophils% 12.4 % (0-5); Hematocrit 43.1 % (40-54); Hemoglobin 14.3 g/dL (13.0-16.5); Lymphocyte # 1.35 X10^3/ul (4.0); Lymphocyte % 29.4 % (19-41); Mean Corp Hgb Conc 33.2 g/dL (32-36); Mean Corpuscular Hgb 29.3 pg (27.0-32.0); Mean Corpuscular Volume 88.3 fL (80-94); Mean Platelet Vol. 9.8 fl (6.2-12.0); Monocyte% 6.5 % (0-10); NRBC Flagged by Analyzer 0 % (0-5); Neutrophil # 2.32 X10^3/uL (2.7-7.7); Neutrophil % 50.6 % (47-70); Platelet Count 166 K/mm3 (150-450); RBC Distribution Width CV 12.9 % (11.6-14.6); RBC Distribution Width SD 41.7 fl (35.1-43.9); Red Blood Count 4.88 M/mm3 (4.6-6.2); White Blood Count 4.6 K/mm3 (4.4-11.0)
[2019-07-31 10:09] LABS: Phenytoin (Dilantin) Level 7.5 mL (10.0-20.0)
[2019-07-31 10:13] LABS: Cholesterol 104 mg/dL (200); High Density Lipoprotein 52 mg/dL; PSA,Total - Annual Screen 0.61 ng/mL (0.00-4.00); Triglycerides 33 mg/dL; Very Low Density Lipoprotein 7 mg/dL (5-40)
[2019-07-31 10:14] LABS: Hemoglobin A1c 6.6 % (4.2-6.3)
[2019-07-31 10:15] LABS: AST(SGOT) 24 U/L (15-37); Alanine Aminotransfer ALT/SGPT 34 U/L (16-61); Alkaline Phosphatase 82 U/L (45-117); Bilirubin, Direct 0.11 mg/dL (0.00-0.30); Globulin 2.8 g/dL (2.2-4.2); Protein, Total 6.8 g/dL (6.4-8.2)
[2019-07-31 10:17] LABS: Vitamin D,25 Hydroxy 38.9 ng/mL (29.95-100.01)
== END ==
PROVIDERS: Family Medicine; Internal Medicine Cardiovascular Disease; Family Provider Family Medicine; PCP Family Medicine; Referring Provider Family Medicine; Visit Provider Family Medicine
DX: G40.909 Epilepsy, unspecified, not intractable, without status epilepticus (principal); E11.9 Type 2 diabetes mellitus without complications; I25.10 Atherosclerotic heart disease of native coronary artery without angina pectoris; Z12.5 Encounter for screening for malignant neoplasm of prostate; E55.9 Vitamin D deficiency, unspecified
CPT/HCPCS: 36415; 80061; 80076; 80185; 82306; 83036; 84153; 85025; G0103

== ENCOUNTER → 2020-03-22 08:27 | Outpatient (CLI) | payer OTHER, SELFPAY ==
[2019-10-16 10:11] VITALS: BMI 25.3
[2020-03-22 10:01] LABS: Absolute Lymphocyte Count 1.33 X10^3/uL (0.83-4.51); Absolute Neutrophil Count 2.1 X10^3/uL (2.0-7.7); Basophil# 0.04 X10^3/uL; Basophil% 0.9 % (0-1); Eosinophils% 13.7 % (0-5); Hematocrit 44.6 % (40-54); Lymphocyte # 1.33 X10^3/ul (4.0); Lymphocyte % 30.4 % (19-41); Mean Corp Hgb Conc 33.6 g/dL (32-36); Mean Corpuscular Hgb 30.3 pg (27.0-32.0); Mean Corpuscular Volume 90.1 fL (80-94); Mean Platelet Vol. 9.6 fl (6.2-12.0); Monocyte# 0.32 X10^3/uL; Monocyte% 7.3 % (0-10); NRBC Flagged by Analyzer 0 % (0-5); Neutrophil # 2.08 X10^3/uL (2.7-7.7); Neutrophil % 47.5 % (47-70); Platelet Count 173 K/mm3 (150-450); RBC Distribution Width CV 12.5 % (11.6-14.6); RBC Distribution Width SD 41.1 fl (35.1-43.9); Red Blood Count 4.95 M/mm3 (4.6-6.2); White Blood Count 4.4 K/mm3 (4.4-11.0)
[2020-03-22 10:21] LABS: Hemoglobin A1c 6.2 % (3.8-5.6)
[2020-03-22 10:23] LABS: ALB/GLOB Ratio 1.3 RATIO (0.9-2.4); AST(SGOT) 23 U/L (15-37); Alanine Aminotransfer ALT/SGPT 41 U/L (16-61); Albumin, Serum 4.1 g/dL (3.2-5.0); Alkaline Phosphatase 80 U/L (45-117); Anion Gap 6 (5-15); BUN 11 mg/dL (7-18); BUN/Creat Ratio 15.4 RATIO (10-20); Calcium,Total 9.1 mg/dL (8.5-10.1); Chloride 105 mmol/L (98-107); Cholesterol 126 mg/dL (200); Creatinine, Serum 0.72 mg/dL (0.70-1.30); EST Glomerular Filtration Rate 117 mL/min (>60); Est Glom Filt Rate - Afr Amer 142 mL/min (>60); Globulin 3.1 g/dL (2.2-4.2); Glucose 150 mg/dL (74-106); High Density Lipoprotein 56 mg/dL; Potassium 4.3 mmol/L (3.5-5.1); Protein, Total 7.2 g/dL (6.4-8.2); Sodium Level 141 mmol/L (136-145); Thyroid Stim Hormone (TSH) 1.78 uIU/mL (0.358-3.74); Triglycerides 43 mg/dL; Very Low Density Lipoprotein 9 mg/dL (5-40)
[2020-03-22 10:32] LABS: Microalbumin,Random Urine 11.5 mg/L (NO RANGE EST.); Microalbumin:Creatinine Ratio 26.1 mg/g CRE (<30 mg/g CRE)
== END ==
PROVIDERS: PCP Family Medicine; Referring Provider Family Medicine; Visit Provider Family Medicine
DX: E11.65 Type 2 diabetes mellitus with hyperglycemia (principal); G40.909 Epilepsy, unspecified, not intractable, without status epilepticus
CPT/HCPCS: 36415; 80053; 80061; 82043; 82570; 83036; 84439; 84443; 85025

== ENCOUNTER → 2020-07-27 10:48 | Outpatient (CLI) | payer OTHER, SELFPAY ==
[2019-10-16 10:11] VITALS: BMI 25.3
[2020-07-27 12:31] LABS: Phenytoin (Dilantin) Level 9.3 mL (10.0-20.0)
[2020-07-27 12:34] LABS: ALB/GLOB Ratio 1.3 RATIO (0.9-2.4); AST(SGOT) 21 U/L (15-37); Alanine Aminotransfer ALT/SGPT 41 U/L (16-61); Albumin, Serum 4.3 g/dL (3.2-5.0); Alkaline Phosphatase 83 U/L (45-117); Anion Gap 6 (5-15); BUN 13 mg/dL (7-18); BUN/Creat Ratio 18.3 RATIO (10-20); Calcium,Total 9.2 mg/dL (8.5-10.1); Chloride 104 mmol/L (98-107); Creatinine, Serum 0.71 mg/dL (0.70-1.30); EST Glomerular Filtration Rate 118 mL/min (>60); Est Glom Filt Rate - Afr Amer 143 mL/min (>60); Globulin 3.3 g/dL (2.2-4.2); Glucose 123 mg/dL (74-106); Potassium 4.2 mmol/L (3.5-5.1); Protein, Total 7.6 g/dL (6.4-8.2); Sodium Level 139 mmol/L (136-145)
== END ==
PROVIDERS: PCP Family Medicine; Referring Provider Family Medicine; Visit Provider Family Medicine
DX: G40.909 Epilepsy, unspecified, not intractable, without status epilepticus (principal)
CPT/HCPCS: 36415; 80053; 80185

== ENCOUNTER → 2020-11-02 07:21 | Outpatient (CLI) | payer MEDICARE, OTHER, SELFPAY ==
[2020-10-19 09:07] VITALS: BMI 25.0
[2020-11-02 11:00] LABS: AST(SGOT) 22 U/L (15-37); Alanine Aminotransfer ALT/SGPT 38 U/L (16-61); Alkaline Phosphatase 76 U/L (45-117); Bilirubin, Direct 0.12 mg/dL (0.00-0.30); Cholesterol 110 mg/dL (200); Globulin 2.8 g/dL (2.2-4.2); High Density Lipoprotein 54 mg/dL; Protein, Total 6.8 g/dL (6.4-8.2); Triglycerides 37 mg/dL; Very Low Density Lipoprotein 7 mg/dL (5-40)
== END ==
PROVIDERS: PCP Family Medicine; Referring Provider Internal Medicine Cardiovascular Disease; Visit Provider Internal Medicine Cardiovascular Disease
DX: E78.00 Pure hypercholesterolemia, unspecified (principal)
CPT/HCPCS: 36415; 80061; 80076

== ENCOUNTER → 2021-01-20 07:39 | Outpatient (CLI) | payer MEDICARE, OTHER, SELFPAY ==
[2020-10-19 09:07] VITALS: BMI 25.0
[2021-01-20 10:25] LABS: Absolute Lymphocyte Count 1.37 X10^3/uL (0.83-4.51); Absolute Neutrophil Count 2.2 X10^3/uL (2.0-7.7); Basophil# 0.02 X10^3/uL; Basophil% 0.4 % (0-1); Eosinophil# 0.53 X10^3/uL; Eosinophils% 11.8 % (0-5); Hematocrit 47.2 % (40-54); Hemoglobin 15.4 g/dL (13.0-16.5); Lymphocyte # 1.37 X10^3/ul (0.83-4.51); Lymphocyte % 30.4 % (19-41); Mean Corp Hgb Conc 32.6 g/dL (32-36); Mean Corpuscular Hgb 30.3 pg (27.0-32.0); Mean Corpuscular Volume 92.7 fL (80-94); Mean Platelet Vol. 9.9 fl (6.2-12.0); Monocyte# 0.36 X10^3/uL; NRBC Flagged by Analyzer 0 % (0-5); Neutrophil # 2.22 X10^3/uL (2.7-7.7); Neutrophil % 49.2 % (47-70); Platelet Count 199 K/mm3 (150-450); RBC Distribution Width CV 12.2 % (11.6-14.6); Red Blood Count 5.09 M/mm3 (4.6-6.2); White Blood Count 4.5 K/mm3 (4.4-11.0)
[2021-01-20 10:42] LABS: Phenytoin (Dilantin) Level 6.9 mL (10.0-20.0)
[2021-01-20 10:47] LABS: Hemoglobin A1c 6.3 % (3.8-5.6)
[2021-01-20 10:55] LABS: ALB/GLOB Ratio 1.3 RATIO (0.9-2.4); AST(SGOT) 17 U/L (15-37); Alanine Aminotransfer ALT/SGPT 35 U/L (16-61); Albumin, Serum 3.9 g/dL (3.2-5.0); Alkaline Phosphatase 84 U/L (45-117); Anion Gap 3 (5-15); BUN 9 mg/dL (7-18); BUN/Creat Ratio 12.9 RATIO (10-20); Calcium,Total 8.7 mg/dL (8.5-10.1); Chloride 104 mmol/L (98-107); EST Glomerular Filtration Rate 121 mL/min (>60); Est Glom Filt Rate - Afr Amer 146 mL/min (>60); Glucose 147 mg/dL (74-106); Protein, Total 6.9 g/dL (6.4-8.2); Sodium Level 136 mmol/L (136-145); Thyroid Stim Hormone (TSH) 2.89 uIU/mL (0.358-3.74)
== END ==
PROVIDERS: PCP Family Medicine
DX: E11.65 Type 2 diabetes mellitus with hyperglycemia (principal); I25.10 Atherosclerotic heart disease of native coronary artery without angina pectoris; G40.909 Epilepsy, unspecified, not intractable, without status epilepticus
CPT/HCPCS: 36415; 80053; 80185; 83036; 84443; 85025

== ENCOUNTER → 2021-02-11 12:24 | Outpatient (CLI) | payer MEDICARE, OTHER, SELFPAY ==
[2020-10-19 09:07] VITALS: BMI 25.0
[2021-02-11 15:20] LABS: PSA,Total - Annual Screen 0.72 ng/mL (0.00-4.00)
== END ==
PROVIDERS: PCP Family Medicine; Referring Provider Family Medicine; Visit Provider Family Medicine
DX: Z12.5 Encounter for screening for malignant neoplasm of prostate (principal)
CPT/HCPCS: 36415; 84153; G0103

== ENCOUNTER → 2021-03-03 09:00 | Outpatient (CLI) | payer MEDICARE, OTHER, SELFPAY ==
[2020-10-19 09:07] VITALS: BMI 25.0
[2021-03-03 10:48] LABS: Vitamin B12 398 pg/mL (211-911)
[2021-03-03 11:14] LABS: Microalbumin,Random Urine 21.1 mg/L (NO RANGE EST.); Microalbumin:Creatinine Ratio 23.6 mg/g CRE (<30 mg/g CRE)
== END ==
PROVIDERS: PCP Family Medicine
DX: E11.65 Type 2 diabetes mellitus with hyperglycemia (principal); R53.81 Other malaise; R53.83 Other fatigue
CPT/HCPCS: 36415; 82043; 82570; 82607; 82746

== ENCOUNTER → 2021-07-02 08:30 | Outpatient (CLI) | payer MEDICARE, OTHER, SELFPAY ==
--- NOTE | 2021-07-02 08:52 | MRI_ITS ---
STUDY: MRI BRAIN WITHOUT CONTRAST REASON FOR EXAM: Male, 65 years old. COGNITIVE IMPAIRMENT TECHNIQUE: Standardized multiplanar fat and water weighted pulse sequences were obtained. COMPARISON: None. FINDINGS: Normal size of the ventricles and extra-axial spaces for the patient''s age. Normal white matter tracts of the supratentorial brain. CSF fluid signal asymmetric CSF fluid signal posterior and superior to the left lateral ventricle, posterior horn consistent with asymmetric enlargement of perivascular space. Scattered T2 and FLAIR bright foci in the periventricular white matter most commonly representing chronic small vessel ischemic changes. Normal midline anatomy. Normal midbrain, jose and medulla. Normal cerebellum. Normal basal cisterns. Normal bilateral temporal bones. Normal bilateral internal auditory canals. No demonstrated orbital abnormality, within the constraints of a routine brain study. There is some mild mucosal thickening involving the frontal and sphenoid sinuses. No air-fluid levels. Maxillary sinuses and ethmoid air cells, mastoid air cells and middle ears are without abnormal fluid signal. Normal calvarium and skull base. Normal visualized soft tissue structures. Normal visualized upper cervical spine. MRI/Brain without Contrast IMPRESSION: All chronic small vessel ischemic changes involving periventricular white matter. Asymmetric prominence perivascular spaces posterior left temporal lobe. Electronically Signed: Roberto Ashton DO at 23:32 EDT Tel , Service support ,
== END ==
PROVIDERS: PCP Family Medicine; Referring Provider Psychiatry & Neurology Sleep Medicine; Visit Provider Psychiatry & Neurology Sleep Medicine
DX: G31.84 Mild cognitive impairment of uncertain or unknown etiology (principal); R20.2 Paresthesia of skin
CPT/HCPCS: 70551

== ENCOUNTER → 2021-08-05 06:15 | Outpatient (CLI) | payer MEDICARE, OTHER, SELFPAY ==
--- NOTE | 2021-08-05 08:12 | TELEMED_ITS ---
[facility] Telemed has confirmed receipt of a request for visit. This document confirms receipt of the order initiating the consult. To find the results of the consultation, please view the patient's reports for the scanned Telemed Consult.
== END ==
PROVIDERS: PCP Family Medicine; Referring Provider Psychiatry & Neurology Sleep Medicine; Visit Provider Psychiatry & Neurology Sleep Medicine
DX: R20.0 Anesthesia of skin (principal); R41.3 Other amnesia; Z87.898 Personal history of other specified conditions
CPT/HCPCS: 95819

== ENCOUNTER → 2021-09-13 08:23 | Outpatient (CLI) | payer MEDICARE, OTHER, SELFPAY ==
[2021-09-13 10:47] LABS: Hemoglobin A1c 7.1 % (3.8-5.6)
== END ==
PROVIDERS: PCP Family Medicine
DX: E11.65 Type 2 diabetes mellitus with hyperglycemia (principal)
CPT/HCPCS: 36415; 83036

== ENCOUNTER → 2021-10-27 08:20 | Outpatient (CLI) | payer MEDICARE, OTHER, SELFPAY ==
[2021-10-27 11:17] LABS: AST(SGOT) 21 U/L (15-37); Alanine Aminotransfer ALT/SGPT 40 U/L (16-61); Albumin, Serum 3.9 g/dL (3.2-5.0); Alkaline Phosphatase 77 U/L (45-117); Anion Gap 7 (5-15); BUN 9 mg/dL (7-18); BUN/Creat Ratio 12.7 RATIO (10-20); Bilirubin, Direct 0.15 mg/dL (0.00-0.30); Calcium,Total 9.7 mg/dL (8.5-10.1); Chloride 106 mmol/L (98-107); Cholesterol 115 mg/dL (200); Creatinine, Serum 0.71 mg/dL (0.70-1.30); EST Glomerular Filtration Rate 119 mL/min (>60); Est Glom Filt Rate - Afr Amer 143 mL/min (>60); Glucose 160 mg/dL (74-106); High Density Lipoprotein 52 mg/dL; Protein, Total 6.9 g/dL (6.4-8.2); Sodium Level 139 mmol/L (136-145); Thyroid Stim Hormone (TSH) 1.87 uIU/mL (0.358-3.74); Triglycerides 48 mg/dL; Very Low Density Lipoprotein 10 mg/dL (5-40)
[2021-10-27 12:15] LABS: Microalbumin,Random Urine 11.3 mg/L (NO RANGE EST.); Microalbumin:Creatinine Ratio 21.3 mg/g CRE (<30 mg/g CRE)
== END ==
PROVIDERS: PCP Family Medicine
DX: E11.65 Type 2 diabetes mellitus with hyperglycemia (principal)
CPT/HCPCS: 36415; 80048; 80061; 80076; 82043; 82570; 84439; 84443

== ENCOUNTER → 2022-02-13 | Outpatient (CLI) | payer MEDICARE, OTHER, SELFPAY ==
[2022-02-13 10:38] LABS: Hemoglobin A1c 6.6 % (3.8-5.6)
== END | disposition home or self-care (01) ==
LOC: MTLAB 07:50
PROVIDERS: PCP Family Medicine
DX: E11.65 Type 2 diabetes mellitus with hyperglycemia (principal)
CPT/HCPCS: 36415; 83036

== ENCOUNTER → 2022-07-05 | Outpatient (CLI) | payer MEDICARE, OTHER, SELFPAY ==
[2022-07-05 10:11] LABS: Absolute Lymphocyte Count 1.27 X10^3/uL (0.83-4.51); Absolute Neutrophil Count 2.2 X10^3/uL (2.0-7.7); Basophil# 0.03 X10^3/uL; Basophil% 0.7 % (0-1); Eosinophil# 0.52 X10^3/uL; Eosinophils% 11.9 % (0-5); Hematocrit 43.5 % (40-54); Hemoglobin 14.5 g/dL (13.0-16.5); Lymphocyte # 1.27 X10^3/ul (0.83-4.51); Lymphocyte % 29.1 % (19-41); Mean Corp Hgb Conc 33.3 g/dL (32-36); Mean Corpuscular Hgb 30.3 pg (27.0-32.0); Mean Platelet Vol. 9.3 fl (6.2-12.0); Monocyte# 0.33 X10^3/uL; Monocyte% 7.6 % (0-10); NRBC Flagged by Analyzer 0 % (0-5); Neutrophil # 2.21 X10^3/uL (2.7-7.7); Neutrophil % 50.5 % (47-70); Platelet Count 180 K/mm3 (150-450); RBC Distribution Width CV 12.4 % (11.6-14.6); RBC Distribution Width SD 41.6 fl (35.1-43.9); Red Blood Count 4.78 M/mm3 (4.6-6.2); White Blood Count 4.4 K/mm3 (4.4-11.0)
[2022-07-05 10:39] LABS: Phenytoin (Dilantin) Level 5.1 mL (10.0-20.0)
[2022-07-05 10:46] LABS: Anion Gap 8 (5-15); BUN 9 mg/dL (7-18); BUN/Creat Ratio 12.7 RATIO (10-20); Calcium,Total 9.1 mg/dL (8.5-10.1); Chloride 103 mmol/L (98-107); Cholesterol 126 mg/dL (200); Creatinine, Serum 0.71 mg/dL (0.70-1.30); EST Glomerular Filtration Rate 118 mL/min (>60); Est Glom Filt Rate - Afr Amer 142 mL/min (>60); Glucose 176 mg/dL (74-106); High Density Lipoprotein 54 mg/dL; PSA,Total - Annual Screen 0.74 ng/mL (0.00-4.00); Potassium 3.8 mmol/L (3.5-5.1); Sodium Level 138 mmol/L (136-145); Thyroid Stim Hormone (TSH) 1.95 uIU/mL (0.358-3.74); Triglycerides 50 mg/dL; Very Low Density Lipoprotein 10 mg/dL (5-40)
== END | disposition home or self-care (01) ==
LOC: MTLAB 07:55
PROVIDERS: PCP Family Medicine; Referring Provider Family Medicine; Visit Provider Family Medicine
DX: R56.9 Unspecified convulsions (principal); E11.9 Type 2 diabetes mellitus without complications; R53.83 Other fatigue; Z12.5 Encounter for screening for malignant neoplasm of prostate
CPT/HCPCS: 36415; 80048; 80061; 80185; 84153; 84403; 84443; 85025; G0103

== ENCOUNTER → 2022-08-25 | Outpatient (CLI) | payer MEDICARE, OTHER, SELFPAY ==
[2022-08-25 10:29] LABS: Microalbumin,Random Urine 9.4 mg/L (NO RANGE EST.); Microalbumin:Creatinine Ratio 27.2 mg/g CRE (<30 mg/g CRE)
[2022-08-25 10:39] LABS: AST(SGOT) 18 U/L (15-37); Alanine Aminotransfer ALT/SGPT 40 U/L (16-61); Albumin, Serum 3.8 g/dL (3.2-5.0); Alkaline Phosphatase 71 U/L (45-117); Bilirubin, Direct 0.14 mg/dL (0.00-0.30); Globulin 2.9 g/dL (2.2-4.2); Protein, Total 6.7 g/dL (6.4-8.2)
[2022-08-25 10:41] LABS: Hemoglobin A1c 6.8 % (3.8-5.6)
== END | disposition home or self-care (01) ==
LOC: MTLAB 08:14
PROVIDERS: PCP Family Medicine
DX: E11.65 Type 2 diabetes mellitus with hyperglycemia (principal)
CPT/HCPCS: 36415; 80076; 82043; 82570; 83036

== ENCOUNTER → 2022-11-02 | Outpatient (CLI) | payer MEDICARE, OTHER, SELFPAY ==
--- NOTE | 2022-11-02 06:39 | ECHOD_ITS ---
Reason For Study: S/P CABG Procedure This was a 2D Doppler, Color Flow transthoracic echocardiogram. Exam performed in department. Left Ventricle Normal LV size. Left ventricular systolic function is normal. The estimated ejection fraction is 55 %. Stage 1 diastolic dysfunction. No regional wall motion abnormalities noted. Right Ventricle Normal RV size. Normal systolic function. Atria Normal left atrium. Normal right atrium. Bubble contrast study negative for right to left interatrial shunt. Mitral Valve Normal mitral valve. Tricuspid Valve Normal tricuspid valve. Aortic Valve Trisinus/trileaflet aortic valve. Pulmonic Valve Normal pulmonic valve. Mild (1+) pulmonic valve insufficiency. Great Vessels Normal aortic root. The pulmonary artery is normal size. Normal inferior vena cava. Pericardium/Pleural No pericardial effusion. Medication Performed a rapid injection of agitated mix of 9 cc saline and 1cc air to assess for atrial septal defect. MMode/2D Measurements & Calculations LVIDd: 5.4 cm IVSd: 0.71 cm Ao root diam: 3.2 cm LVIDs: 3.5 cm LVPWd: 0.79 cm RVDd: 3.7 cm FS: 35.3 % LAV(MOD-bp): 41.6 ml LVAd ap4: 34.6 cm2 SV(MOD-sp4): 70.0 ml LAV(MOD-bp) Indexed: 23.0 ml/m2 LVLd ap4: 8.6 cm LAV(MOD-sp2): 40.5 ml EDV(MOD-sp4): 113.8 ml LAV(MOD-sp4): 39.8 ml EDV(sp4-el): 117.6 ml LVAs ap4: 19.5 cm2 LVLs ap4: 7.2 cm ESV(MOD-sp4): 43.7 ml ESV(sp4-el): 44.8 ml EF(MOD-sp4): 61.6 % EF(sp4-el): 61.9 % SV(sp4-el): 72.8 ml LA A4 area: 15.7 cm2 LA dimension(2D): 3.7 cm RA A4 area: 13.8 cm2 Time Measurements MV dec time: 0.28 sec Doppler Measurements & Calculations MV E max lionel: 86.4 cm/sec Lat Peak E' Lionel: 11.3 cm/sec Med Peak E' Lionel: 8.9 cm/sec MV A max lionel: 110.2 cm/sec E/E' lat: 7.6 E/E' med: 9.8 MV E/A: 0.78 Ao V2 max: 162.0 cm/sec LV V1 max: 128.4 cm/sec PA V2 max: 137.2 cm/sec Ao max P.5 mmHg LV V1 max P.6 mmHg PI end-d lionel: 84.2 cm/sec ECHO/Echo Complete Interpretation Summary Normal LV size. Left ventricular systolic function is normal. The estimated ejection fraction is 55 %. Bubble contrast study negative for right to left interatrial shunt. Stage 1 diastolic dysfunction. Ordering Physician: Bernardo Louis Referring Physician: SHARRI GLEZ Performed By: Radha Brewer RDCS
--- NOTE | 2022-11-02 11:15 | STRESSREP ---
Stress Test Report Exercise myocardial perfusion stress test. 67-year-old man with a history of coronary artery disease for surveillance. Stress protocol: Resting EKG demonstrates normal sinus rhythm with a rate of 63 bpm resting blood pressure is 128/78 mmHg. The patient exercised according to the regular Donnie protocol for a total duration of 10 minutes attaining a maximum heart rate of 144 bpm which was 94% of maximum predicted heart rate; the maximum workload was 13.4 metabolic equivalents. At rest there were no ST or T wave changes noted to suggest ischemia and at peak exercise upsloping ST changes only were noted which did not meet the criteria for ischemia. No clinical angina was noted the test was terminated due to the target heart rate being achieved/fatigue. The peak blood pressure was 172/74 mmHg. Rate-pressure product was 21,700. Myocardial perfusion protocol. 14.6 mCi of technetium 99m sestamibi was injected at rest. The patient exercised according to regular Donnie protocol for total duration of 10 minutes and at peak exercise 44.3 mCi of technetium 99m sestamibi was injected stress images were obtained stress and rest images were reconstructed in comparing the short axis vertical long and horizontal long axis. Gated images were also obtained. Perfusion SPECT analysis: Review of the stress images demonstrate normal uptake of tracer noted in all areas of the myocardium. The resting images similarly demonstrate normal uptake of tracer noted in all areas of the myocardium. No areas of reversibility are noted to suggest ischemia no previous infarct was noted. Gated SPECT analysis: The gated ejection fraction is 63%. Conclusion: Normal exercise myocardial perfusion stress test at a high workload Preserved ejection fraction.
== END | disposition home or self-care (01) ==
LOC: CVS 06:38
PROVIDERS: PCP Family Medicine; Visit Provider Internal Medicine Cardiovascular Disease
DX: I25.10 Atherosclerotic heart disease of native coronary artery without angina pectoris (principal); Z95.1 Presence of aortocoronary bypass graft
CPT/HCPCS: 78452; 93017; 93306; A9500; A4216

== ENCOUNTER → 2022-12-25 | Outpatient (CLI) | payer MEDICARE, OTHER, SELFPAY ==
[2022-12-25 10:00] LABS: Absolute Lymphocyte Count 1.12 X10^3/uL (0.83-4.51); Absolute Neutrophil Count 2.2 X10^3/uL (2.0-7.7); Basophil# 0.03 X10^3/uL; Basophil% 0.7 % (0-1); Eosinophil# 0.59 X10^3/uL; Eosinophils% 13.8 % (0-5); Hematocrit 43.3 % (40-54); Hemoglobin 14.7 g/dL (13.0-16.5); Lymphocyte # 1.12 X10^3/ul (0.83-4.51); Lymphocyte % 26.2 % (19-41); Mean Corp Hgb Conc 33.9 g/dL (32-36); Mean Corpuscular Hgb 31.1 pg (27.0-32.0); Mean Corpuscular Volume 91.7 fL (80-94); Mean Platelet Vol. 9.7 fl (6.2-12.0); Monocyte# 0.31 X10^3/uL; Monocyte% 7.2 % (0-10); NRBC Flagged by Analyzer 0 % (0-5); Neutrophil # 2.22 X10^3/uL (2.7-7.7); Neutrophil % 51.9 % (47-70); Platelet Count 184 K/mm3 (150-450); RBC Distribution Width CV 12.4 % (11.6-14.6); RBC Distribution Width SD 41.7 fl (35.1-43.9); Red Blood Count 4.72 M/mm3 (4.6-6.2); White Blood Count 4.3 K/mm3 (4.4-11.0)
[2022-12-25 10:18] LABS: Hemoglobin A1c 7.1 % (3.8-5.6)
[2022-12-25 10:22] LABS: Phenytoin (Dilantin) Level 6.2 mL (10.0-20.0)
[2022-12-25 10:32] LABS: ALB/GLOB Ratio 1.4 RATIO (0.9-2.4); AST(SGOT) 20 U/L (15-37); Alanine Aminotransfer ALT/SGPT 38 U/L (16-61); Alkaline Phosphatase 67 U/L (45-117); Anion Gap 7 (5-15); BUN 11 mg/dL (7-18); BUN/Creat Ratio 14.8 RATIO (10-20); Calcium,Total 9.1 mg/dL (8.5-10.1); Chloride 103 mmol/L (98-107); Cholesterol 123 mg/dL (200); Creatinine, Serum 0.74 mg/dL (0.70-1.30); EST Glomerular Filtration Rate 112 mL/min (>60); Est Glom Filt Rate - Afr Amer 135 mL/min (>60); Globulin 2.9 g/dL (2.2-4.2); Glucose 180 mg/dL (74-106); High Density Lipoprotein 52 mg/dL; Potassium 4.2 mmol/L (3.5-5.1); Protein, Total 6.9 g/dL (6.4-8.2); Sodium Level 138 mmol/L (136-145); Triglycerides 67 mg/dL; Very Low Density Lipoprotein 13 mg/dL (5-40)
== END | disposition home or self-care (01) ==
PROVIDERS: PCP Family Medicine; Visit Provider Family Medicine
DX: E78.5 Hyperlipidemia, unspecified (principal); E11.9 Type 2 diabetes mellitus without complications
CPT/HCPCS: 80053; 80061; 80185; 83036; 85025

== ENCOUNTER → 2023-06-21 | Outpatient (CLI) | payer MEDICARE, OTHER, SELFPAY ==
[2023-06-21 11:14] LABS: Anion Gap 6 (5-15); BUN 10 mg/dL (7-18); BUN/Creat Ratio 13.2 RATIO (10-20); Calcium,Total 9.2 mg/dL (8.5-10.1); Chloride 107 mmol/L (98-107); Creatinine, Serum 0.76 mg/dL (0.70-1.30); EST Glomerular Filtration Rate 109 mL/min (>60); Est Glom Filt Rate - Afr Amer 132 mL/min (>60); Glucose 171 mg/dL (74-106); Potassium 4.2 mmol/L (3.5-5.1); Sodium Level 140 mmol/L (136-145)
== END | disposition home or self-care (01) ==
LOC: MTLAB 09:47
PROVIDERS: PCP Family Medicine; Visit Provider Family Medicine
DX: E11.9 Type 2 diabetes mellitus without complications (principal)
CPT/HCPCS: 36415; 80048

== ENCOUNTER → 2023-07-16 | Outpatient (CLI) | payer MEDICARE, OTHER, SELFPAY ==
[2023-07-16 10:57] LABS: Creatinine, Urine (random) < 13.00 mg/dL (NO RANGE EST.); Microalbumin,Random Urine < 5.0 mg/L (NO RANGE EST.)
[2023-07-16 11:02] LABS: Thyroid Stim Hormone (TSH) 2.19 uIU/mL (0.358-3.74)
== END | disposition home or self-care (01) ==
LOC: MTLAB 09:11
PROVIDERS: PCP Family Medicine
DX: E11.65 Type 2 diabetes mellitus with hyperglycemia (principal)
CPT/HCPCS: 36415; 82043; 82570; 84443

== ENCOUNTER → 2024-03-06 | Outpatient (CLI) | payer MEDICARE, OTHER, SELFPAY ==
[2024-03-06 10:32] LABS: Anion Gap 4 (5-15); BUN 11 mg/dL (7-18); BUN/Creat Ratio 15.4 RATIO (10-20); Calcium,Total 8.7 mg/dL (8.5-10.1); Chloride 102 mmol/L (98-107); Cholesterol 127 mg/dL (200); Creatinine, Serum 0.71 mg/dL (0.70-1.30); EST Glomerular Filtration Rate 116 mL/min (>60); Est Glom Filt Rate - Afr Amer 141 mL/min (>60); Glucose 156 mg/dL (74-106); High Density Lipoprotein 60 mg/dL; Potassium 4.1 mmol/L (3.5-5.1); Sodium Level 134 mmol/L (136-145); Triglycerides 46 mg/dL; Very Low Density Lipoprotein 9 mg/dL (5-40)
[2024-03-06 10:44] LABS: Microalbumin,Random Urine 8.1 mg/L (NO RANGE EST.)
[2024-03-06 10:46] LABS: Hemoglobin A1c 6.6 % (3.8-5.6)
== END | disposition home or self-care (01) ==
LOC: MTLAB 07:56
PROVIDERS: PCP Family Medicine; Referring Provider Family Medicine; Visit Provider Family Medicine
DX: I10 Essential (primary) hypertension (principal); E11.9 Type 2 diabetes mellitus without complications
CPT/HCPCS: 36415; 80048; 80061; 82043; 82570; 83036

== ENCOUNTER → 2024-06-12 | Outpatient (CLI) | payer MEDICARE, OTHER, SELFPAY ==
[2024-06-12 16:10] LABS: Anion Gap 9 (5-15); BUN 19 mg/dL (7-18); BUN/Creat Ratio 24.7 RATIO (10-20); Chloride 102 mmol/L (98-107); Creatinine, Serum 0.77 mg/dL (0.70-1.30); EST Glomerular Filtration Rate 107 mL/min (>60); Est Glom Filt Rate - Afr Amer 129 mL/min (>60); Glucose 117 mg/dL (74-106); Sodium Level 138 mmol/L (136-145)
== END | disposition home or self-care (01) ==
LOC: MFPLAB 11:05
PROVIDERS: PCP Family Medicine; Visit Provider Family Medicine
DX: E11.65 Type 2 diabetes mellitus with hyperglycemia (principal); E11.59 Type 2 diabetes mellitus with other circulatory complications
CPT/HCPCS: 36415; 80048; 84443

== ENCOUNTER → 2024-06-25 | Outpatient (CLI) | payer MEDICARE, OTHER, SELFPAY ==
--- NOTE | 2024-06-25 09:03 | NEURO ---
NCS and/or EMG Patient Report Ordering Doctor: Byron Balbuena DATE OF SERVICE: 06/25/24 Byron presents for electrodiagnostic testing of the lower limbs. He reports numbness and tingling in both feet. Diagnostic findings: Right peroneal motor nerve demonstrates normal distal latency, amplitude and with a drop in conduction across the fibular head. Left peroneal motor response demonstrates normal distal latency, amplitude and conduction velocity. Right and left tibial motor responses are within normal limits. Prolonged sural latency is noted bilaterally. Normal superficial peroneal and medial plantar responses. H?reflex bilaterally. Normal tibial and peroneal F?waves. Needle EMG testing was performed in the lower limbs. All muscles tested showed no evidence of denervation with normal motor unit action potentials. Electrodiagnostic impression: This is an abnormal study in the lower limbs 1. Electrodiagnostic findings suggestive of peripheral polyneuropathy, sensory greater than motor. This may be secondary to diabetes mellitus. 2. No electrodiagnostic evidence is noted for lumbosacral radiculopathy Multi Select Codes Neurology Neurology Interp Codes: 15141-81 Musc test done w/n test comp (interp) (2) and 54515-78 Nrv cndj test 11-12 studies (interp)
== END | disposition home or self-care (01) ==
LOC: PSN 06:42
PROVIDERS: PCP Family Medicine; Referring Provider Podiatrist; Visit Provider Podiatrist
DX: E11.42 Type 2 diabetes mellitus with diabetic polyneuropathy (principal)
CPT/HCPCS: 95886; 95912

== ENCOUNTER 2024-06-26 11:27 | Inpatient (IN) | payer MEDICARE, OTHER, SELFPAY ==
[2024-06-26] VITALS (10 sets, daily range): BP systolic 101–118; BP diastolic 58–74; PULSE 56–88; RESP 12–20; TEMP 36.7–37.5; O2SAT 92–100; BMI 24.1
--- NOTE | 2024-06-26 11:30 | EKG12_ITS ---
Test Reason : CP Blood Pressure : / mmHG Vent. Rate : 055 BPM Atrial Rate : 055 BPM P-R Int : 182 ms QRS Dur : 088 ms QT Int : 386 ms P-R-T Axes : 050 037 117 degrees QTc Int : 369 ms Sinus bradycardia Possible Left atrial enlargement ST & T wave abnormality, consider anterolateral ischemia Abnormal ECG Borderline ST elevation-inferior leads Confirmed by Roberto Jane ([id number]), graphic editor MARTINEZ FOREMAN ([id number]) on 06/30/2024 10:16:49 AM Referred By: Confirmed By:Roberto Jane
[2024-06-26 12:09] LABS: Absolute Lymphocyte Count 0.72 X10^3/uL (0.83-4.51); Absolute Neutrophil Count 5.9 X10^3/uL (2.0-7.7); Basophil# 0.02 X10^3/uL; Basophil% 0.3 % (0-1); Eosinophil# 0.07 X10^3/uL; Hematocrit 46.2 % (40-54); Hemoglobin 15.5 g/dL (13.0-16.5); Lymphocyte # 0.72 X10^3/ul (0.83-4.51); Mean Corp Hgb Conc 33.5 g/dL (32-36); Mean Corpuscular Hgb 30.8 pg (27.0-32.0); Mean Corpuscular Volume 91.8 fL (80-94); Mean Platelet Vol. 9.2 fl (6.2-12.0); Monocyte# 0.33 X10^3/uL; Monocyte% 4.6 % (0-10); NRBC Flagged by Analyzer 0 % (0-5); Neutrophil # 5.91 X10^3/uL (2.7-7.7); Neutrophil % 82.4 % (47-70); Platelet Count 188 K/mm3 (150-450); RBC Distribution Width CV 12.6 % (11.6-14.6); RBC Distribution Width SD 42.7 fl (35.1-43.9); Red Blood Count 5.03 M/mm3 (4.6-6.2); White Blood Count 7.2 K/mm3 (4.4-11.0)
[2024-06-26 12:45] LABS: Anion Gap 10 (5-15); BUN 12 mg/dL (7-18); BUN/Creat Ratio 14.4 RATIO (10-20); Chloride 104 mmol/L (98-107); Creatinine, Serum 0.83 mg/dL (0.70-1.30); EST Glomerular Filtration Rate 97 mL/min (>60); Est Glom Filt Rate - Afr Amer 118 mL/min (>60); Estimated Creatinine Clearance 76.87 ml/min; Glucose 173 mg/dL (74-106); Potassium 4.1 mmol/L (3.5-5.1); Sodium Level 140 mmol/L (136-145); Troponin-I HS (w/2H Reflex) 5117 pg/mL (3.0-78.0)
--- NOTE | 2024-06-26 12:53 | EKG12_ITS ---
Test Reason : ELEVATED TROPONIN Blood Pressure : / mmHG Vent. Rate : 060 BPM Atrial Rate : 060 BPM P-R Int : 202 ms QRS Dur : 088 ms QT Int : 414 ms P-R-T Axes : 044 -02 091 degrees QTc Int : 414 ms Normal sinus rhythm Cannot rule out Septal infarct , age undetermined ST & T wave abnormality, consider lateral ischemia Abnormal ECG Confirmed by Roberto Jane ([id number]), make up editor MARTINEZ FOREMAN ([id number]) on 06/30/2024 10:17:07 AM Referred By: Confirmed By:Roberto Jane
--- NOTE | 2024-06-26 12:54 | ED.VIS.CHEST ---
HPI History of Present Illness Chief Complaint: Chest Pain [facility] Medical History (Updated 06/26/24 @ 15:[address] Rohini Peterson, ) Anxiety Diabetes Pancreatitis Non-smoker Myocardial infarct Chest pain Hypertension Essential hypertension Hyperlipidemia History of non-ST elevation myocardial infarction (NSTEMI) (02/16/18) Atherosclerotic heart disease of [place] coronary artery without angina pectoris (02/2018) GERD (gastroesophageal reflux disease) Dyspnea Chest pain Seizure disorder Type 2 diabetes mellitus without complications Abnormal cardiovascular stress test Home Medications ?Medication ?Instructions ?Recorded ?Last Taken ?Type aspirin 81 mg tablet,delayed 81 mg PO QDAY 01/15/18 06/26/24 History release (Adult Aspirin Regimen) metformin 500 mg tablet,extended 1,000 mg PO BID 90 days #360 tabs 01/15/18 06/26/24 History release 24 hr multivitamin 1 tab PO QDAY 01/15/18 06/26/24 History atorvastatin 40 mg tablet 40 mg PO QHS 10/16/19 06/25/24 History metoprolol tartrate 25 mg tablet 12.5 mg PO BID 10/19/20 06/26/24 History phenytoin sodium extended 100 mg 100 mg PO QPM 10/20/21 06/25/24 History capsule phenytoin sodium extended 100 mg 200 mg PO DAILY 10/20/21 06/26/24 History capsule empagliflozin 10 mg tablet 10 mg PO DAILY 10/23/23 06/26/24 History (Jardiance) lisinopril 20 mg tablet 20 mg PO DAILY 06/26/24 06/26/24 History omega 8-bdy-znm-fish oil 1,200 mg 1 cap PO DAILY 06/26/24 06/26/24 History (144 mg-216 mg) capsule (Fish Oil) Allergy/AdvReac Type Severity Reaction Status Date / Time No Known Allergies Allergy Verified 06/26/24 11:28 Family History Mother , age 89 Hypertension Father , age 60's from rare neurological condition No problems noted. Brother CAD (coronary artery disease) Stented coronary artery Surgical History H/O coronary artery bypass surgery (02/18/18) History of left heart catheterization (01/23/18) History of colonoscopy (~05/2021) History of cholecystectomy Social History Smoking Status: Never smoker alcohol intake: current alcohol intake frequency: holidays/special occasions only substance use type: does not use caffeine: Yes Type: coffee Number of servings: 3 EXAM Physical Exam Const Vital Signs: 06/26/24 11:28 06/26/24 12:55 06/26/24 13:28 Temperature 98.1 F Temperature Source Temporal Pulse Rate 56 L 63 Respiratory Rate 14 18 Blood Pressure 118/63 110/64 Blood Pressure Mean 81 79 Pulse Ox 100 94 99 Oxygen Delivery Method Room Air Nasal Cannula Nasal Cannula Oxygen Flow Rate (L/min) 2 2 06/26/24 15:00 Temperature Temperature Source Pulse Rate 66 Respiratory Rate 12 Blood Pressure 114/74 Blood Pressure Mean 87 Pulse Ox 98 Oxygen Delivery Method Room Air Oxygen Flow Rate (L/min) MDM MDM MDM Narrative Medical decision making narrative: HISTORY OF PRESENT ILLNESS: 68-year-old male presents with chest pain for the last 2 to 3 days. He notes it is pressure-like, midsternal, radiating to the neck but is not exertional. It is not pleuritic. Denies any focal numbness weakness or loss sensation. Denies any syncope. Denies any bleeding diathesis. Denies any vomiting. Notes history of bypass in 2018. REVIEW OF SYSTEMS: Pertinent positives: Chest pain Pertinent negatives: Shortness of breath, focal weakness PHYSICAL EXAM: Nursing triage notes reviewed, Vital signs reviewed Constitutional: please see mdm HENT: MMM Eyes: Pupils equal round and reactive to light, Extraocular muscles intact Neck: No stridor, no JVD, full neck ROM Lungs: Clear to auscultation, No wheezing or rales. No increased work of breathing, no conversational dyspnea, no accessory muscle use, no nasal flaring. No respiratory distress noted Heart: Regular rate and rhythm, No murmurs, No rubs and No gallops, 2+ distal pulses (radial, femoral, posterior tibial) in all extremities Abdomen: Soft, there is no tenderness, rigidity, rebound or guarding, no obvious peritoneal signs, no palpable pulsatile abdominal masses, no auscultated abdominal bruit : No CVAT Extremities: No edema Neuro: No focal neurological deficits, cranial nerves II through XII intact, 5/5 strength in all extremities. Intact sensation to light touch in all extremities, 2+ reflexes bilateral patella tendons. Normal gait. No ataxia. Skin: No rash or lesions noted MEDICAL DECISION MAKING: Chief Complaint: Chest pain, External records reviewed: Reviewed prior cardiology notes, reviewed prior EKG. Last tress test in October 2022 Factors affecting care: Hyperlipidemia, hypertension, ACS Social determinants of health: none History obtained from others: Family Consults: Cardiology (Dr. Hankins), hospitalist [facility]. [facility] Narrative: Patient was initially hemodynamically stable, afebrile and nontoxic-appearing. Looked comfortable. He is not sweaty or diaphoretic. He is in no acute distress. He had no exertional chest pain. He notes chest pain was mild I considered the following differential diagnosis: ACS, arrhythmia, anemia, electrolyte disturbance, PE, aortic dissection The patient's history and physical exam was not consistent with PE or aortic dissection ALL IMAGES (IF OBTAINED) HAVE BEEN PERSONALLY REVIEWED AND INTERPRETED BY MYSELF. Initial EKG concerning given slight ST changes in lead III which are new from prior EKG but no definitive STEMI as criteria was not met, there is also some slight depression in aVL strain for reciprocal change, sinus bradycardia, normal axis, normal intervals. Initial EKG was obtained in triage along with blood work which showed elevated troponin of 5117 concerning for myocardial ischemia. Patient was given empiric aspirin. Patient was immediately brought back to the ED given elevated troponin and a repeat EKG was obtained immediately which showed normal sinus rhythm, ongoing ST changes in lead III but no reciprocal changes noted, no STEMI. Spoke with cardiology who reviewed the patient's EKG troponin and history. Dr. Kishor michelle recommended CBC without leukocytosis, severe anemia, no thrombocytopenia. BMP without evidence of significant electrolyte abnormalities, no anion gap, no acute kidney injury. Initial troponin elevated, delta troponin continues to elevate patient is on heparin drip and had no dynamic symptomatic changes. Will admit under hospitalist to PCU for admission for NSTEMI. The patient and/or family, caregivers express understanding. The patient and/or family, caregivers agrees with the plan. Shared decision making: I will have a discussion with the patient and or visitors regarding risk/benefits of further testing or admission. They will be made aware of of the risk/benefits inherent in this decision they will be given the opportunity to voice understanding. Total critical care time today provided was at least 35 minutes. This excludes separately billable procedures. Critical care time (if documented) is secondary to the patient having high probability of clinically significant/life threatening deterioration in the patient's condition which required my urgent intervention. Impression: 1. Chest pain 2. NSTEMI 3. Abnormal EKG Dispo: Admit to PCU This note was generated with [employer] dictation software. It may contain incorrect words, spelling, and punctuation that were not noted in review of the chart prior to signing. Lab Data Labs: Laboratory Results - last 24 hr 06/26/24 06/26/24 06/26/24 11:50 13:28 14:22 WBC 7.2 RBC 5.03 Hgb 15.5 Hct 46.2 MCV 91.8 MCH 30.8 MCHC 33.5 RDW Std Deviation 42.7 RDW Coeff of Leticia 12.6 Plt Count 188 MPV 9.2 Immature Gran % (Auto) 1.700 H Neut % (Auto) 82.4 H Lymph % (Auto) 10.0 L [place] % (Auto) 4.6 Eos % (Auto) 1.0 Baso % (Auto) 0.3 Absolute Neuts (auto) 5.9 Absolute Lymphs (auto) 0.72 L Nucleated RBC % 0 PT 14.2 INR 1.1 APTT 23.1 L Sodium 140 Potassium 4.1 Chloride 104 Carbon Dioxide 26.0 Anion Gap 10 BUN 12 Creatinine 0.83 Estim Creat Clear Calc 76.87 Est GFR (MDRD) Af Amer 118 Est GFR (MDRD) Non-Af 97 BUN/Creatinine Ratio 14.4 Glucose 173 H Calcium 10.0 Troponin I High Sens 5117 H* 6402 H* Radiography Diagnostic Testing: Clinical Impression(s) from Imaging Studies Chest X-Ray 06/26/24 13:20 IMPRESSION: Status post midline sternotomy. No acute abnormality is seen. Electronically Signed: Enrrique Dunaway MD at 13:37 EDT , Discharge Plan Triage Chief Complaint: Chest Pain ED Provider: Nelson Humphrey Dx/Rx/DC Orders Prescriptions: No Action metformin 500 mg tablet extended release 24 hr 1,000 mg PO BID 90 Days Qty: 360 Patient Comments: aspirin [Adult Aspirin Regimen] 81 mg tablet,delayed release (DR/EC) 81 mg PO QDAY multivitamin tablet 1 tab PO QDAY phenytoin sodium extended 100 mg capsule 200 mg PO DAILY atorvastatin 40 mg tablet 40 mg PO QHS metoprolol tartrate 25 mg tablet 12.5 mg PO BID phenytoin sodium extended 100 mg capsule 100 mg PO QPM Rx Instructions: Take 100 mg alternating with 200 mg QPM Jardiance 10 mg tablet 10 mg PO DAILY omega 0-eek-igd-fish oil [Fish Oil] 1,200 (144-216) mg capsule 1 cap PO DAILY lisinopril 20 mg tablet 20 mg PO DAILY Primary Care Provider: uJvencio Christy Referrals: Juvencio Christy MD [Primary Care Provider] - Print Language: Montenegrin
[2024-06-26] MEDS: Aspirin 325 MG Tablet PO (12:58)
--- NOTE | 2024-06-26 13:20 | RAD_ITS ---
STUDY: X-RAY CHEST REASON FOR EXAM: Male, 68 years old. Chest pain TECHNIQUE: Single AP portable view of the chest. COMPARISON: Comparison is made with prior study dated February 16, 2018. FINDINGS: EKG electrodes are seen. The lungs are clear and expanded. There is no demonstrated pleural abnormality. Sternal cerclage wires and vascular clips are present from a prior sternotomy and coronary artery bypass graft procedure (CABG). Normal mediastinum and dylan. Normal visualized pulmonary arteries. There is atherosclerotic tortuosity of the aortic arch and descending thoracic aorta. Normal visualized thoracic spine. Normal visualized ribs, clavicles, and shoulders. There is no demonstrated abnormality of the visualized soft tissue structures of the upper abdomen. RAD/Chest 1 View (Portable) IMPRESSION: Status post midline sternotomy. No acute abnormality is seen. Electronically Signed: Enrrique Dunaway MD at 13:37 EDT ,
[2024-06-26] MEDS: HEPARIN/D5w 25,000 UNITS 25,000 UNITS/250 ML IV.SOLN. 8 UNITS CONT INF (13:34)
[2024-06-26 13:51] LABS: International Normalized Ratio 1.1; Partial Thromboplast Time 23.1 Seconds (24.1-36.2); Prothrombin Time (Protime)PT. 14.2 SECONDS (11.7-14.9)
[2024-06-26 13:59] LABS: Reflex Troponin-HS? (from REC) Y
[2024-06-26 14:56] LABS: Troponin-I HS 6402 pg/mL (3.0-78.0)
--- NOTE | 2024-06-26 15:34 | CON.PCM.CA_ITS ---
Assessment & Plan Assessment/Plan (1) NSTEMI (non-ST elevated myocardial infarction): PLAN: Presently asymptomatic. Continue aspirin. Heparin. Nitrates. Start on clopidogrel. Recommend coronary angiography with possible revascularization. Risks benefits and alternatives explained to the patient. He understand these and wishes to proceed. We will schedule him for the procedure for tomorrow morning. Check echo. (2) Coronary artery disease: PLAN: History of CABG. See #1 above. (3) H/O coronary artery bypass surgery: PLAN: Four-vessel CABG with KOHLI to the LAD, free ELISE to the diagonal branch and vein graft to the obtuse marginal and ramus intermedius in 2018. See #1 above. (4) Essential hypertension: PLAN: Continue patient's metoprolol and lisinopril. (5) Hyperlipidemia: QUALIFIERS: Hyperlipidemia type: mixed hyperlipidemia Qualified Code(s): E78.2 - Mixed hyperlipidemia PLAN: Atorvastatin. (6) Diabetes: PLAN: As per internal medicine. HPI Consult Data Date of Consult: 06/26/24 HPI Narrative Reason for Consultation: NSTEMI HPI Narrative: 68-year-old gentleman with past medical history significant for coronary artery disease status post four-vessel CABG in 2018 with a KOHLI to the LAD, free ELISE to the diagonal branch and saphenous vein graft to the ramus intermedius and obtuse marginal branch. Patient presented to the emergency room with complaints of anterior chest tightness for the last 2 days. According to him, it initially was intermittent but constant last night. He therefore presented to the emergency room. Patient denies any radiation to the arm neck or jaw. No associated shortness of breath or diaphoresis. He was pain-free by the time he presented to the emergency room. Denies orthopnea. No PND. No ankle edema. [facility] Medical History (Updated 06/26/24 @ 15:[address] Suzette Hankins MD) Anxiety Diabetes Pancreatitis Non-smoker Myocardial infarct Chest pain Hypertension Essential hypertension Hyperlipidemia History of non-ST elevation myocardial infarction (NSTEMI) (02/16/18) Atherosclerotic heart disease of [place] coronary artery without angina pectoris (02/2018) GERD (gastroesophageal reflux disease) Dyspnea Chest pain Seizure disorder Type 2 diabetes mellitus without complications Abnormal cardiovascular stress test Home Medications ?Medication ?Instructions ?Recorded ?Last Taken ?Type aspirin 81 mg tablet,delayed 81 mg PO QDAY 01/15/18 06/26/24 History release (Adult Aspirin Regimen) metformin 500 mg tablet,extended 1,000 mg PO BID 90 days #360 tabs 01/15/18 06/26/24 History release 24 hr multivitamin 1 tab PO QDAY 01/15/18 06/26/24 History atorvastatin 40 mg tablet 40 mg PO QHS 10/16/19 06/25/24 History metoprolol tartrate 25 mg tablet 12.5 mg PO BID 10/19/20 06/26/24 History phenytoin sodium extended 100 mg 100 mg PO QPM 10/20/21 06/25/24 History capsule phenytoin sodium extended 100 mg 200 mg PO DAILY 10/20/21 06/26/24 History capsule empagliflozin 10 mg tablet 10 mg PO DAILY 10/23/23 06/26/24 History (Jardiance) lisinopril 20 mg tablet 20 mg PO DAILY 06/26/24 06/26/24 History omega 4-uaa-vjj-fish oil 1,200 mg 1 cap PO DAILY 06/26/24 06/26/24 History (144 mg-216 mg) capsule (Fish Oil) Allergy/AdvReac Type Severity Reaction Status Date / Time No Known Allergies Allergy Verified 06/26/24 11:28 Family History Mother , age 89 Hypertension Father , age 60's from rare neurological condition No problems noted. Brother CAD (coronary artery disease) Stented coronary artery Surgical History H/O coronary artery bypass surgery (02/18/18) History of left heart catheterization (01/23/18) History of colonoscopy (~05/2021) History of cholecystectomy Social History Smoking Status: Never smoker alcohol intake: current alcohol intake frequency: holidays/special occasions only substance use type: does not use caffeine: Yes Type: coffee Number of servings: 3 Physical Exam Narrative Comfortable. No apparent distress. Heart sounds 1 and 2 are normal. No murmurs or rubs are noted. Chest is clear to auscultation bilaterally. Alert oriented x 3. No ankle edema noted. Risk Stratification Risk Stratification Applicable: No Objective Data Vital Signs: Vital Signs Temp Pulse Resp BP Pulse Ox O2 Del Method O2 Flow Rate 98.1 F 66 12 114/74 98 Room Air 2 06/26/24 11:28 06/26/24 15:00 06/26/24 15:00 06/26/24 15:00 06/26/24 15:00 06/26/24 15:00 06/26/24 13:28 Oxygen Flow Rate (L/min) 2 Oxygen Delivery Method Room Air Weight: 149 lb 7.574 oz Body Mass Index (BMI) 24.1 Lab / Micro Data Attestation: I reviewed the patient's lab results. 06/26/24 11:50 06/26/24 11:50 Labs: Laboratory Results - last 24 hr 06/26/24 11:50: WBC 7.2, RBC 5.03, Hgb 15.5, Hct 46.2, MCV 91.8, MCH 30.8, MCHC 33.5, RDW Std Deviation 42.7, RDW Coeff of Leticia 12.6, Plt Count 188, MPV 9.2, I mmature Gran % (Auto) 1.700 H, Neut % (Auto) 82.4 H, Lymph % (Auto) 10.0 L, [place] % (Auto) 4.6, Eos % (Auto) 1.0, Baso % (Auto) 0.3, Absolute Neuts (auto) 5.9, A bsolute Lymphs (auto) 0.72 L, Nucleated RBC % 0, Sodium 140, Potassium 4.1, Chloride 104, Carbon Dioxide 26.0, Anion Gap 10, BUN 12, Creatinine 0.83, Estim Creat Clear Calc 76.87, Est GFR (MDRD) Af Amer 118, Est GFR (MDRD) Non-Af 97, BUN/Creatinine Ratio 14.4, Glucose 173 H, Calcium 10.0, Troponin I High Sens 5117 H* 06/26/24 13:28: PT 14.2, INR 1.1, APTT 23.1 L 06/26/24 14:22: Troponin I High Sens 6402 H* Rhythm Strip Rhythm Strip: Sinus Rhythm Cardiology Labs/Tests 06/26/24 11:50: WBC 7.2, RBC 5.03, Hgb 15.5, Hct 46.2, MCV 91.8, MCH 30.8, MCHC 33.5, Plt Count 188, MPV 9.2, Immature Gran % (Auto) 1.700 H, Neut % (Auto) 82.4 H, Lymph % (Auto) 10.0 L, [place] % (Auto) 4.6, Eos % (Auto) 1.0, Baso % (Auto) 0.3, Absolute Neuts (auto) 5.9, Nucleated RBC % 0, Sodium 140, Potassium 4.1, Chloride 104, Carbon Dioxide 26.0, Anion Gap 10, BUN 12, Creatinine 0.83, Est GFR (MDRD) Af Amer 118, Est GFR (MDRD) Non-Af 97, BUN/Creatinine Ratio 14.4, G lucose 173 H, Calcium 10.0 06/26/24 13:28: PT 14.2, INR 1.1, APTT 23.1 L Rhythm: EKG: Sinus rhythm. ST changes suggestive of lateral ischemia. ECHO: Stress Test: Cardiac Cath: PCI: CT Surgery: Holter monitor: EPS: PPM: CXR: Chest CT Scan: Radiography Diagnostic Testing: Radiology Impression Chest X-Ray 06/26/24 13:20 IMPRESSION: Status post midline sternotomy. No acute abnormality is seen. Electronically Signed: Enrrique Dunaway MD at 13:37 EDT ,
--- NOTE | 2024-06-26 15:48 | HP.PCM.HOS_ITS ---
HPI - General General Date of Admission: 06/26/24 Date of Service: 06/26/24 Chief Complaint: Chest pain HPI Narrative GISSELL AMBRIZ, is a 68 M who presented to the emergency department at [facility] on 06/26/2024 with a chief complaint of chest pain. He reported that it has been ongoing on and off for the last 2 to 3 days. It is pressure-like and midsternal into the left. He has had some associated diaphoresis and nausea with belching. And has not been exertional or pleuritic. He does have a history of coronary bypass x 4 at [facility] in 2018. He has a history of hypertension, hyperlipidemia, and he is diabetic. He is a never smoker. Vital signs on presentation showed a temperature of 98.1, heart rate 56, blood pressure 118/63, respiratory rate 14 oxygen saturation is 100% on room air. His CBC was unremarkable. Coags were normal. Chemistry panel was unremarkable other than hyperglycemia with a blood glucose level of 173. This was nonfasting. Initial troponin was 5117 with a repeat troponin at [address] depression in the inferior and lateral leads. Chest x-ray is unremarkable for any acute findings. He was started on heparin drip and cardiology was contacted by the emergency department and agreed to see him in consult after admission. Patient is currently chest pain-free [facility] Medical History Anxiety Diabetes Pancreatitis Non-smoker Myocardial infarct Chest pain Hypertension Essential hypertension Hyperlipidemia History of non-ST elevation myocardial infarction (NSTEMI) (02/16/18) Atherosclerotic heart disease of [place] coronary artery without angina pectoris (02/2018) GERD (gastroesophageal reflux disease) Dyspnea Chest pain Seizure disorder Type 2 diabetes mellitus without complications Abnormal cardiovascular stress test Home Medications ?Medication ?Instructions ?Recorded ?Last Taken ?Type aspirin 81 mg tablet,delayed 81 mg PO QDAY 01/15/18 06/26/24 History release (Adult Aspirin Regimen) metformin 500 mg tablet,extended 1,000 mg PO BID 90 days #360 tabs 01/15/18 06/26/24 History release 24 hr multivitamin 1 tab PO QDAY 01/15/18 06/26/24 History atorvastatin 40 mg tablet 40 mg PO QHS 10/16/19 06/25/24 History metoprolol tartrate 25 mg tablet 12.5 mg PO BID 10/19/20 06/26/24 History phenytoin sodium extended 100 mg 100 mg PO QPM 10/20/21 06/25/24 History capsule phenytoin sodium extended 100 mg 200 mg PO DAILY 10/20/21 06/26/24 History capsule empagliflozin 10 mg tablet 10 mg PO DAILY 10/23/23 06/26/24 History (Jardiance) lisinopril 20 mg tablet 20 mg PO DAILY 06/26/24 06/26/24 History omega 1-dhp-gok-fish oil 1,200 mg 1 cap PO DAILY 06/26/24 06/26/24 History (144 mg-216 mg) capsule (Fish Oil) Allergy/AdvReac Type Severity Reaction Status Date / Time No Known Allergies Allergy Verified 06/26/24 11:28 Family History Mother , age 89 Hypertension Father , age 60's from rare neurological condition No problems noted. Brother CAD (coronary artery disease) Stented coronary artery Surgical History H/O coronary artery bypass surgery (02/18/18) History of left heart catheterization (01/23/18) History of colonoscopy (~05/2021) History of cholecystectomy Social History Smoking Status: Never smoker alcohol intake: current alcohol intake frequency: holidays/special occasions only substance use type: does not use caffeine: Yes Type: coffee Number of servings: 3 ROS Constitutional Constitutional: Denies anorexia, change in weight, chills, fatigue, fever(s), malaise, night sweats, weakness or other Eyes Eyes: Denies blurry vision, change in eye color, change in vision, discharge from eye(s), double vision, erythema, eye pain, loss of vision or other ENT HEENT: Denies abnormal hearing, dysphagia, ear pain, epistaxis, headache(s), hearing loss, nasal congestion, nasal discharge, post nasal drip, sinus pressure, sore throat or other Cardiovascular Cardiovascular: Reports chest pain and other Details: Diaphoresis Respiratory/Chest Respiratory/Chest: Reports shortness of breath at rest; Denies cough, dyspnea, excessive phlegm production, hemoptysis, productive cough, shortness of breath with exertion, wheezing or other Gastrointestinal Gastrointestinal: Reports dyspepsia and other Details: Belching ; Denies abdominal pain, coffee ground emesis, constipation, diarrhea, hematemesis, hematochezia, loose stools, melena, nausea or vomiting Genitourinary Genitourinary: Denies burning urination, difficulty urinating, dysuria, hematuria, nocturia, urinary frequency, urinary hesitancy, urinary incontinence, urinary urgency or other Musculoskeletal Musculoskeletal: Denies arthralgias, back pain, joint pain, joint stiffness, joint swelling, myalgias, neck pain or other Neurologic Neurologic: Denies abnormal gait, abnormal speech, confusion, disequilibrium, dizziness, focal weakness, headache(s), numbness, paresthesias, seizure-like activity, seizures, syncope, tingling, tremor(s) or other Psychiatric Psychiatric: Denies anxiety, depression, homicidal ideation, suicidal ideation or other Endocrine Endocrinology: Denies change in body appearance, cold intolerance, excessive sweating, heat intolerance, polydipsia, polyuria or other Hematologic/Lymphatic Hematologic/Lymphatic: Denies anemia, easy bleeding, easy bruising, lymphadenopathy or other Allergic/Immunologic Allergic/Immunologic: Denies rhinitis, hives, eczemia, asthma or other Vital Signs Vital Signs Vital Signs: 06/26/24 11:28 06/26/24 12:55 06/26/24 13:28 Temperature 98.1 F Temperature Source Temporal Pulse Rate 56 L 63 Respiratory Rate 14 18 Blood Pressure 118/63 110/64 Blood Pressure Mean 81 79 Pulse Ox 100 94 99 Oxygen Delivery Method Room Air Nasal Cannula Nasal Cannula Oxygen Flow Rate (L/min) 2 2 06/26/24 15:00 Temperature Temperature Source Pulse Rate 66 Respiratory Rate 12 Blood Pressure 114/74 Blood Pressure Mean 87 Pulse Ox 98 Oxygen Delivery Method Room Air Oxygen Flow Rate (L/min) Weight Weight: 67.8 kg Body Mass Index (BMI) 24.1 Physical Exam Const alert, oriented x3, no apparent distress, average body habitus and well nourished Constitutional Narrative: Maternal age, white male, sitting up in bed, appears slightly older than stated age, at bedside, appears comfortable currently, does not appear toxic General Appearance: cooperative HEENT normocephalic, head/scalp atraumatic, hearing grossly normal bilaterally and moist oral mucous membranes HEENT Narrative: Dentition is fair, Mallampati is 2, no thrush Eyes PERRL, EOMs intact bilaterally and conjunctivae normal Eyes Narrative: No scleral icterus Neck no lymphadenopathy and supple Neck Narrative: Trachea midline, no thyroid enlargement Resp normal respiratory effort, no retractions, no use of accessory muscles and clear to auscultation bilaterally Auscultation: Negative for rales, rhonchi or wheezes Cardio regular rate, regular rhythm, S1 normal heart sound, S2 normal heart sound, no murmurs, no rub, no gallops and no clicks GI normal to inspection, nondistended, normoactive bowel sounds, soft to palpation and non-tender Extremity no clubbing, cyanosis or edema Extremity Narrative: Pedal pulses are 1+ bilaterally, radial pulses are 2+ bilaterally Neuro oriented x3, moves all extremities and no focal motor deficits Speech: speech normal Psych Psych Narrative: Slightly flat, eye contact is good and patient interacts appropriately Results Lab / Micro Data 06/26/24 11:50 06/26/24 11:50 Labs: Laboratory Results - last 24 hr 06/26/24 11:50: WBC 7.2, RBC 5.03, Hgb 15.5, Hct 46.2, MCV 91.8, MCH 30.8, MCHC 33.5, RDW Std Deviation 42.7, RDW Coeff of Leticia 12.6, Plt Count 188, MPV 9.2, I mmature Gran % (Auto) 1.700 H, Neut % (Auto) 82.4 H, Lymph % (Auto) 10.0 L, [place] % (Auto) 4.6, Eos % (Auto) 1.0, Baso % (Auto) 0.3, Absolute Neuts (auto) 5.9, A bsolute Lymphs (auto) 0.72 L, Nucleated RBC % 0, Sodium 140, Potassium 4.1, Chloride 104, Carbon Dioxide 26.0, Anion Gap 10, BUN 12, Creatinine 0.83, Estim Creat Clear Calc 76.87, Est GFR (MDRD) Af Amer 118, Est GFR (MDRD) Non-Af 97, BUN/Creatinine Ratio 14.4, Glucose 173 H, Calcium 10.0, Troponin I High Sens 5117 H* 06/26/24 13:28: PT 14.2, INR 1.1, APTT 23.1 L 06/26/24 14:22: Troponin I High Sens 6402 H* Rhythm Strip Rhythm Strip: Sinus Rhythm Imaging Radiology Impression Chest X-Ray 06/26/24 13:20 IMPRESSION: Status post midline sternotomy. No acute abnormality is seen. Electronically Signed: Enrirque Dunaway MD at 13:37 EDT , Assessment & Plan Assessment/Plan (1) NSTEMI (non-ST elevated myocardial infarction): (2) Hyperglycemia: PLAN: Plan NSTEMI -Patient with chest pain initial troponin markedly elevated greater than 5000 -Continue heparin drip -Nitropaste per cardiology -Continue home metoprolol -Continue home aspirin -Continue home atorvastatin -Continue home lisinopril -Check hemoglobin A1c -Check lipid panel -Check echocardiogram -Cardiology consultation--> Dr. Hankins aware -Plan for cardiac catheterization tomorrow -N.p.o. after midnight and start IV fluids at midnight DM-2 with hyperglycemia -Check hemoglobin A1c -Hold home metformin -Continue home Jardiance -SSI -Accu-Cheks as ordered -Cardiac/carb controlled diet CAD/essential HTN/HPL -Patient with previous CABG x 4 at [facility] in 2018-->left internal mammary artery to the left anterior descending artery, free right internal mammary artery to the diagonal branch, saphenous vein graft to the ramus intermedius and obtuse marginal vessel -Medications as above -Follows with [facility] History of GERD -Patient is not currently on any PPI -Monitor for symptoms while hospitalized and recommend outpatient follow-up Seizure disorder -Continue home phenytoin -No current issues DVT prophylaxis -Heparin drip as ordered CODE STATUS -Full code as verified on admission Charges/Coding Visit Charges Inpatient E&M: 30031 Init Hosp L2
--- NOTE | 2024-06-26 16:14 | CASEMGMT ---
Insurance review for hospitals in network with traditional [facility] if transfer is recommended is as follows: [facility], [place], [facility], [place], [facility], [facility], [facility], [facility], [place], [facility]), and . Samia Thompson, Discharge Planning Asst.
[2024-06-26] MEDS: Clopidogrel Bisulfate 300 MG Tablet PO (16:51)
--- NOTE | 2024-06-26 17:36 | EKG12_ITS ---
Test Reason : PCI Blood Pressure : / mmHG Vent. Rate : 054 BPM Atrial Rate : 054 BPM P-R Int : 186 ms QRS Dur : 096 ms QT Int : 410 ms P-R-T Axes : 045 024 237 degrees QTc Int : [address] & T wave abnormality, consider inferior ischemia Abnormal ECG When compared with ECG of 27-JUN-2024 03:36, MANUAL COMPARISON REQUIRED, DATA IS UNCONFIRMED Confirmed by Roberto Jane ([id number]), movie editor MARTINEZ FOREMAN ([id number]) on 06/30/2024 1:29:13 PM Referred By: BRENDON Confirmed By:Roberto Jane
[2024-06-26] MEDS: Nitroglycerin Oint 1 INCH PACKET TD ×2 (18:02→22:31)
[2024-06-26 18:22] LABS: Bedside Glucose 142 mg/dL (74-106)
[2024-06-26 19:05] LABS: Troponin-I HS 13925 pg/mL (3.0-78.0)
[2024-06-26 19:45] LABS: Partial Thromboplast Time 35.6 Seconds (24.1-36.2)
[2024-06-26] MEDS: Atorvastatin Calcium 40 MG Tablet PO (22:17)
[2024-06-26] MEDS: Phenytoin Na 100 MG Capsule PO (22:17)
[2024-06-26] MEDS: Calcium Carbonate 500 MG Tablet PO (22:19)
[2024-06-26] MEDS: Insulin Lispro 100 UNIT/ML INSULN.PEN SC (22:31)
[2024-06-27] VITALS (13 sets, daily range): BP systolic 91–119; BP diastolic 54–61; PULSE 54–62; RESP 16–18; TEMP 36.7–36.9; O2SAT 93–98
[2024-06-27 00:09] LABS: Bedside Glucose 166 mg/dL (74-106)
[2024-06-27] MEDS: Calcium Carbonate 500 MG Tablet PO ×2 (03:33→21:05)
--- NOTE | 2024-06-27 04:08 | NURSING ---
emergency documentation starting @ 06/26 1900
[2024-06-27 04:31] LABS: Absolute Lymphocyte Count 0.53 X10^3/uL (0.83-4.51); Basophil# 0.02 X10^3/uL; Basophil% 0.3 % (0-1); Eosinophil# 0.14 X10^3/uL; Eosinophils% 1.9 % (0-5); Hematocrit 40.5 % (40-54); Hemoglobin 13.6 g/dL (13.0-16.5); Lymphocyte # 0.53 X10^3/ul (0.83-4.51); Lymphocyte % 7.3 % (19-41); Mean Corp Hgb Conc 33.6 g/dL (32-36); Mean Corpuscular Hgb 30.7 pg (27.0-32.0); Mean Corpuscular Volume 91.4 fL (80-94); Mean Platelet Vol. 9.5 fl (6.2-12.0); Monocyte# 0.56 X10^3/uL; Monocyte% 7.7 % (0-10); NRBC Flagged by Analyzer 0 % (0-5); Neutrophil # 6.01 X10^3/uL (2.7-7.7); Neutrophil % 82.4 % (47-70); POSITIVE DIFFERENTIAL YES; Platelet Count 150 K/mm3 (150-450); RBC Distribution Width CV 12.4 % (11.6-14.6); RBC Distribution Width SD 41.7 fl (35.1-43.9); Red Blood Count 4.43 M/mm3 (4.6-6.2); White Blood Count 7.3 K/mm3 (4.4-11.0)
[2024-06-27 04:48] LABS: Partial Thromboplast Time 51.4 Seconds (24.1-36.2)
[2024-06-27 04:53] LABS: ALB/GLOB Ratio 1.3 RATIO (0.9-2.4); AST(SGOT) 129 U/L (15-37); Alanine Aminotransfer ALT/SGPT 41 U/L (16-61); Albumin, Serum 3.3 g/dL (3.2-5.0); Alkaline Phosphatase 65 U/L (45-117); Anion Gap 7 (5-15); BUN 20 mg/dL (7-18); BUN/Creat Ratio 24.3 RATIO (10-20); Calcium,Total 9.4 mg/dL (8.5-10.1); Chloride 104 mmol/L (98-107); Cholesterol 108 mg/dL (200); Creatinine, Serum 0.82 mg/dL (0.70-1.30); EST Glomerular Filtration Rate 99 mL/min (>60); Est Glom Filt Rate - Afr Amer 119 mL/min (>60); Globulin 2.5 g/dL (2.2-4.2); Glucose 182 mg/dL (74-106); High Density Lipoprotein 56 mg/dL; Phosphorus 4.5 mg/dL (2.5-4.9); Potassium 3.6 mmol/L (3.5-5.1); Protein, Total 5.8 g/dL (6.4-8.2); Sodium Level 137 mmol/L (136-145); Triglycerides 65 mg/dL; Very Low Density Lipoprotein 13 mg/dL (5-40)
--- NOTE | 2024-06-27 05:55 | EKG12_ITS ---
Test Reason : AM EKG Blood Pressure : / mmHG Vent. Rate : 055 BPM Atrial Rate : 055 BPM P-R Int : 202 ms QRS Dur : 092 ms QT Int : 414 ms P-R-T Axes : 145 179 085 degrees QTc Int : 396 ms Suspect arm lead reversal, interpretation assumes no reversal Unusual P axis, possible ectopic atrial bradycardia Lateral infarct , age undetermined Inferior infarct , age undetermined Abnormal ECG When compared with ECG of 27-JUN-2024 12:26, MANUAL COMPARISON REQUIRED, DATA IS UNCONFIRMED Confirmed by Roberto Jane ([id number]), development editor MARTINEZ FOREMAN ([id number]) on 06/30/2024 1:28:56 PM Referred By: AURELIA Confirmed By:Roberto Jane
[2024-06-27] MEDS: Nitroglycerin Oint 1 INCH PACKET TD (06:42)
[2024-06-27] MEDS: Aspirin E.C. 81 MG Tablet PO (06:43)
[2024-06-27] MEDS: Phenytoin Na 100 MG Capsule 200 MG PO ×2 (06:43→21:04)
[2024-06-27] MEDS: Multivitamins,Therapeutic Tablet 1 TABLET PO (06:43)
[2024-06-27] MEDS: Clopidogrel Bisulfate 75 MG Tablet PO (06:43)
[2024-06-27] MEDS: Lisinopril 20 MG Tablet PO (06:44)
[2024-06-27 07:12] LABS: Bedside Glucose 176 mg/dL (74-106)
--- NOTE | 2024-06-27 08:00 | ECHOD_ITS ---
Reason For Study: CAD/ASHD Procedure This was a 2D Doppler, Color Flow transthoracic echocardiogram. Exam performed portable in patient room. Left Ventricle Normal LV size. The estimated ejection fraction is 50-55 %. No evidence for diastolic dysfunction. Septal and inferior hypokinesis. Right Ventricle Normal RV size. Normal systolic function. Atria The left and right atria are normal. No doppler evidence for ASD. Mitral Valve There is no mitral valve stenosis. Trivial mitral valve insufficiency. Tricuspid Valve There is no tricuspid stenosis. Trivial tricuspid valve insufficiency. Unable to estimate RV systolic pressure due to insufficient tricuspid regurgitant envelope. Aortic Valve Trisinus/trileaflet aortic valve. There is no aortic stenosis. No aortic valve insufficiency. Pulmonic Valve There is no pulmonic valvular stenosis. Trivial pulmonic valve insufficiency. Great Vessels Normal aortic root. Pericardium/Pleural No pericardial effusion. MMode/2D Measurements & Calculations LVIDd: 5.1 cm IVSd: 0.94 cm LVOT diam: 2.0 cm LVIDs: 4.0 cm LVPWd: 1.3 cm LVOT area: 3.2 cm2 FS: 21.9 % Ao root diam: 3.4 cm LAV(MOD-bp): 43.8 ml LVAd ap4: 28.8 cm2 LAV(MOD-bp) Indexed: 28.0 ml/m2 LVLd ap4: 8.1 cm LAV(MOD-sp2): 40.2 ml EDV(MOD-sp4): 87.3 ml LAV(MOD-sp4): 44.1 ml EDV(sp4-el): 86.8 ml LVAs ap4: 18.8 cm2 LVLs ap4: 6.8 cm ESV(MOD-sp4): 43.6 ml ESV(sp4-el): 44.1 ml EF(MOD-sp4): 50.0 % EF(sp4-el): 49.2 % SV(MOD-sp4): 43.7 ml SV(sp4-el): 42.7 ml LA A4 area: 18.3 cm2 LA dimension(2D): 3.9 cm RA A4 area: 8.2 cm2 Time Measurements MV dec time: 0.17 sec Doppler Measurements & Calculations MV E max lionel: 92.4 cm/sec Lat Peak E' Lionel: 12.4 cm/sec Med Peak E' Lionel: 6.4 cm/sec MV A max lionel: 92.9 cm/sec E/E' lat: 7.5 E/E' med: 14.4 MV E/A: 0.99 MV V2 max: 141.9 cm/sec Ao V2 max: 145.3 cm/sec MV max P.1 mmHg MV dec slope: 553.9 cm/sec2 Ao max P.5 mmHg MV V2 mean: 60.8 cm/sec Ao V2 mean: 94.6 cm/sec MV mean P.1 mmHg Ao mean P.3 mmHg MV V2 VTI: 42.6 cm Ao V2 VTI: 31.4 cm AV (velocity ratio): 0.75 MVA(VTI): 1.8 cm2 JOYCE(I,D): 2.4 cm2 JOYCE(V,D): 2.4 cm2 LV V1 max: 109.4 cm/sec SV(LVOT): 75.3 ml PA V2 max: 119.3 cm/sec LV V1 max P.8 mmHg PA V2 mean: 81.3 cm/sec LV V1 mean P.5 mmHg LV V1 mean: 71.8 cm/sec LV V1 VTI: 23.6 cm PI end-d lionel: 114.1 cm/sec TR max lionel: 224.4 cm/sec TR max P.1 mmHg ECHO/Echo Complete Interpretation Summary The estimated ejection fraction is 50-55 %. No evidence for diastolic dysfunction. Septal and inferior hypokinesis Trivial mitral valve insufficiency. Ordering Physician: Suzette Hankins Referring Physician: Juvencio Christy Performed By: Kayli Cordova RCS
[2024-06-27] MEDS: Famotidine 20 MG Tablet PO ×2 (08:17→14:59)
[2024-06-27] MEDS: SimETHICONE 80 MG Chewable Tablet PO (08:18)
[2024-06-27] MEDS: 0.9% Normal Saline (1000mL) 1,000 ML 15 ML IV (08:19)
[2024-06-27 08:28] LABS: Hemoglobin A1c 6.6 % (3.8-5.6)
[2024-06-27] MEDS: 0.9% Saline Lock 10 ML Syringe IV (09:14)
--- NOTE | 2024-06-27 09:18 | NURSING ---
Report called to MINDY Daugherty in laborer electroplating.
--- NOTE | 2024-06-27 12:03 | PN.HOSP_ITS ---
Reason for Visit Reason for Visit: Diagnoses Type 2 diabetes mellitus without complications (06/26/24) Mixed hyperlipidemia (06/26/24) Essential (primary) hypertension (06/26/24) Non-ST elevation (NSTEMI) myocardial infarction (06/26/24) Atherosclerotic heart disease of [place] coronary artery without angina pectoris (06/26/24) Hyperglycemia, unspecified (06/26/24) Presence of aortocoronary bypass graft (06/26/24) Subjective Subjective Saw patient at bedside this afternoon as he was down having his heart catheterization done this morning. was present at bedside this afternoon. Patient was laying back flat in bed to keep pressure off of his groin after the heart cath. He appeared comfortable and in no acute distress. Stated he was feeling well and denied any acute pain or discomfort. He tolerated the cath without issue. His only complaint has been some heartburn/indigestion that improved with a dose of Pepcid this morning. No other acute concerns at this time. Objective Data Objective Data Vital Signs: Vital Signs Temp Pulse Resp BP Pulse Ox O2 Del Method O2 Flow Rate 98.4 F 56 L 16 111/61 93 Room Air 2 06/27/24 06:29 06/27/24 06:39 06/27/24 06:29 06/27/24 06:29 06/27/24 09:01 06/27/24 09:01 06/26/24 17:42 Oxygen Flow Rate (L/min) 2 Oxygen Delivery Method Room Air Weight: 67.9 kg Body Mass Index (BMI) 24.1 Intake & Output: Intake and Output for Last 24 Hours 06/25/24 06/26/24 06/27/24 23:59 23:59 23:59 Intake Total 68.27 / 68.27 115.95 / 115.95 Balance 68.27 / 68.27 115.95 / 115.95 Lab / Micro Data 06/27/24 04:08 06/27/24 04:08 Labs: Laboratory Results - last 24 hr 06/26/24 11:50: WBC 7.2, RBC 5.03, Hgb 15.5, Hct 46.2, MCV 91.8, MCH 30.8, MCHC 33.5, RDW Std Deviation 42.7, RDW Coeff of [place]icia 12.6, Plt Count 188, MPV 9.2, I mmature Gran % (Auto) 1.700 H, Neut % (Auto) 82.4 H, Lymph % (Auto) 10.0 L, [place] % (Auto) 4.6, Eos % (Auto) 1.0, Baso % (Auto) 0.3, Absolute Neuts (auto) 5.9, A bsolute Lymphs (auto) 0.72 L, Nucleated RBC % 0, Sodium 140, Potassium 4.1, Chloride 104, Carbon Dioxide 26.0, Anion Gap 10, BUN 12, Creatinine 0.83, Estim Creat Clear Calc 76.87, Est GFR (MDRD) Af Amer 118, Est GFR (MDRD) Non-Af 97, BUN/Creatinine Ratio 14.4, Glucose 173 H, Calcium 10.0, Troponin I High Sens 5117 H* 06/26/24 13:28: PT 14.2, INR 1.1, APTT 23.1 L 06/26/24 14:22: Troponin I High Sens 6402 H* 06/26/24 18:01: POC Glucose 142 H 06/26/24 18:28: Troponin I High Sens 85963 H* 06/26/24 19:20: APTT 35.6 06/26/24 22:16: POC Glucose 166 H 06/27/24 04:08: WBC 7.3, RBC 4.43 L, Hgb 13.6, Hct 40.5, MCV 91.4, MCH 30.7, MCHC 33.6, RDW Std Deviation 41.7, RDW Coeff of [place]icia 12.4, Plt Count 150, MPV 9.5, Immature Gran % (Auto) 0.400, Neut % (Auto) 82.4 H, Lymph % (Auto) 7.3 L, [place] % (Auto) 7.7, Eos % (Auto) 1.9, Baso % (Auto) 0.3, Absolute Neuts (auto) 6.0, Absolute Lymphs (auto) 0.53 L, Nucleated RBC % 0, APTT 51.4 H, Sodium 137, Potassium 3.6, Chloride 104, Carbon Dioxide 26.0, Anion Gap 7, BUN 20 H, Creatinine 0.82, Estim Creat Clear Calc 77.80, Est GFR (MDRD) Af Amer 119, Est GFR (MDRD) Non-Af 99, BUN/Creatinine Ratio 24.3 H, Glucose 182 H, Hemoglobin A1c 6.6 H, Calcium 9.4, Phosphorus 4.5, Magnesium 2.0, Total Bilirubin 0.50, AST 129 H, ALT 41, Alkaline Phosphatase 65, Total Protein 5.8 L, Albumin 3.3, Globulin 2.5, Albumin/Globulin Ratio 1.3, Triglycerides 65, Cholesterol 108, LDL Cholesterol 39, VLDL Cholesterol 13, HDL Cholesterol 56 06/27/24 06:31: POC Glucose 176 H Radiography Diagnostic Testing: Radiology Impression Chest X-Ray 06/26/24 13:20 IMPRESSION: Status post midline sternotomy. No acute abnormality is seen. Electronically Signed: Enrrique Dunaway MD at 13:37 EDT , Rhythm Strip Rhythm Strip: Sinus Rhythm Physical Exam Const alert, oriented x3, no apparent distress and average body habitus Constitutional Narrative: Pleasant elderly male, laying back comfortably in bed, conversing normally, no acute distress. General Appearance: cooperative and comfortable HEENT normocephalic, head/scalp atraumatic, hearing grossly normal bilaterally, nasal mucous membranes and turbinates normal and moist oral mucous membranes Eyes PERRL, EOMs intact bilaterally and conjunctivae normal Neck full ROM Chest inspection of chest normal Resp normal respiratory effort, normal air movement, no use of accessory muscles and clear to auscultation bilaterally Cardio regular rate, regular rhythm, no murmurs and peripheral pulses 2+ throughout GI normal to inspection, nondistended, normoactive bowel sounds, soft to palpation, non-tender and non-distended Back/Spine normal ROM Extremity normal to inspection, full ROM and no pedal edema Skin no rashes or lesions noted Neuro no focal motor deficits and no sensory deficits noted Speech: speech normal Psych mental status grossly normal Assessment & Plan Assessment/Plan (1) NSTEMI (non-ST elevated myocardial infarction): (2) H/O coronary artery bypass surgery: PLAN: Plan Patient is a 68-year-old male who presented [facility] ED on 06/26/2024 with chest pain. 1. NSTEMI type I ? Cardiology following. Prior history of CABG x 4 as noted below. EKG on admit showed ST depression in the inferior and lateral leads. Troponin trend 5117 > 6402 > 75598. Left heart cath on 06/27 showed distal RCA lesion and second diagonal lesion with successful drug-eluting stent placement x 2. 3 of 4 bypass grafts were patent. Echo on 06/27 showed EF 50 to 55%, septal and inferior hypokinesis, no evidence of diastolic dysfunction. Patient doing well post cath. If remains stable tomorrow, will likely be okay for discharge home. Continue aspirin, Plavix, statin, empagliflozin, lisinopril, Lopressor. Heparin drip continued for now by cardiology, will likely discontinue tomorrow. 2. History of CAD s/p CABG, hypertension, hyperlipidemia ? History of CABG x 4 at [facility] in 2018. Follows with [facility]. Current medical treatment as above. Chronic medical conditions: ? Type 2 diabetes with hyperglycemia: A1c 6.6%. Holding home metformin. Continue home Jardiance. Continue sliding scale insulin with meals while inpatient. ? History of GERD: Not currently on PPI. Monitor symptoms. ? Seizure disorder: Continue home phenytoin. No current issues. DVT prophylaxis: Heparin drip CODE STATUS: Full code, verified Expected disposition: Home, 1 to 2 days Total clinical time spent by myself addressing the patient's medical issues, reviewing all the data, and collaborating with patient's care team: 35 minutes. Charges/Coding Visit Charges Inpatient E&M: 25632 Subs Hosp L2
--- NOTE | 2024-06-27 12:15 | EKG12_ITS ---
Test Reason : AM Blood Pressure : / mmHG Vent. Rate : 058 BPM Atrial Rate : 058 BPM P-R Int : 200 ms QRS Dur : 092 ms QT Int : 396 ms P-R-T Axes : 046 007 112 degrees QTc Int : 388 ms Sinus bradycardia Nonspecific ST and T wave abnormality Abnormal ECG When compared with ECG of 26-JUN-2024 17:45, MANUAL COMPARISON REQUIRED, DATA IS UNCONFIRMED Confirmed by Roberto Jane ([id number]), newspaper copy editor MARTINEZ FOREMAN ([id number]) on 06/30/2024 1:29:41 PM Referred By: Confirmed By:Roberto Jane
[2024-06-27 12:33] LABS: Bedside Glucose 139 mg/dL (74-106)
--- NOTE | 2024-06-27 14:44 | CASEMGMT ---
MINDY GRAHAM Assessment Face to Face with patient for initial transition planning/care coordination assessment. RN CM introduced self and role at [facility], pt voices understanding. Pt is A&Ox4 and is resting comfortably in bed and is calm. Care providers, pharmacy, and demographics verified. Admitting dx: NSTEMI LACE Strata: 2 PCP: Juvencio Christy Specialists: TASHA Preferred Pharmacy: [facility] short term Insurance: MCR A/B, MMO Prescription Benefit: Yes LNOK: Malini Sparr (W) Living Arrangements: Pt lives with his in a single story home with 3-4 steps to enter ADLs/IADLs: Ind Transportation: Self, DME: Glucometer and enough supplies. BP Monitor. Pulse Ox. Denies further needs HHC/SNF: Denies Hx or needs Pt?s goal: Home Plan: Home no needs. 6-Click is 24. Pt denies the need for HHC or OP Tx. Pt states that he plans to DC home with his and denies further questions or concerns. CM to follow for anticoagulant Rx. Hilton Nichols RN, CM
--- NOTE | 2024-06-27 14:49 | CRPHASE1_ITS ---
Patient Communication Patient Information Former Patient:: Phase II PHII Cardiac Rehab Discussed with Patient:: Yes Guide to Cardiac Rehab Given to Patient:: Yes Cardiac Rehab Facility Choice List Given to Patient:: Yes Communication to Cardiac Rehab Choice Program [facility] CR PHII:: Communication Given to CR Spa Therapist:: Machelle Doty Refer Phase II Cardiac Rehab:: Yes Sessions:: 36 sessions - 3 days/wk, 12 weeks Cardiac Rehabilitation Info Program Information Cardiac Rehabilitation Program Information: Cardiac Rehab The cardiac rehab team at [facility] consists of highly skilled exercise physiologists, nurses, respiratory therapists and physicians working together with you. Our purpose is to help you have a full recovery and achieve the goals you set for yourself. Over the years many of our patients have returned to activities they assumed they would never do again! We can help restore your confidence and motivation to make lifestyle changes that can have a significant impact on your health and quality of life! We can help answer questions and concerns you may have about exercise, lifestyle, medications, diet, stress and anxiety which are common following a hospitalization. WE monitor ECG and vital signs during exercise and discuss your progress with you and report to your physician(s). Cardiac Rehab is proven to help reduce readmissions, improve functional capacity and lower recurrence of problems with your heart. Our Cardiac Rehab program is Certified by the [place] [employer]-V[employer] Pulmonary [employer] (AACVPR) and Accredited by the [place] [employer] through our [facility]. You can contact us at . We invite you to call us with your questions or to get started in our program. If you have other questions or concerns be sure to ask your physician/provider during your follow-up visit. WE look forward to seeing you!
--- NOTE | 2024-06-27 14:50 | CRPH1.INSTRU ---
General Education Discussed with Patient CAD and cardiac anatomy and function:: Patient communicates acknowledgment Explanation of diagnoses and procedures:: Patient communicates acknowledgment Sign/Symptoms of ND:: Patient communicates acknowledgment Antiplatelet therapy: Patient communicates acknowledgment Proper use of NTG-SL: Patient communicates acknowledgment Emergency procedures and activation of EMS: Patient communicates acknowledgment Compliance of all prescribed medications: Patient communicates acknowledgment Dyslipidemia Risk Factors Patient Dyslipidemia Risk Factors Are:: Total Cholesterol, Triglycerides, HDL and LDL Recommendations Recommendations Include:: Lipid profile provided Response Code Dyslipidemia Response Code:: Patient communicates acknowledgment Hypertension Recommendations Recommendations Include:: Maintain BP <130/85 and Decrease/maintain normal body weight Response Code Hypertension:: Patient communicates acknowledgment Heart Disease Risk Factors Patient Heart Disease Risk Factors Are:: Family history of heart disease < 65 years old and Previous cardiac event Recommendations Recommendations Include:: Educated family members of their risk Response Code Heart Disease Response Code:: Patient communicates acknowledgment Sedentary Risk Factors Patient Sedentary Risk Factors Are:: Lack of regular exercise Recommendations Recommendations Include:: Aerobic exercise 5-7 times/week for 20-30 minutes continuously, Benefits of regular exercise, Discussed home walking program and Monitored Outpatient Cardiac Rehab Response Code Sedentary Response Code:: Patient communicates acknowledgment Stress Risk Factors Patient Stress Risk Factors Are:: Patient denies stress as a risk factor Recommendations Recommendations Include:: Identification of stressors, and assessment of coping skills and Stress management techniques Response Code Stress Response Code:: Patient communicates acknowledgment
[2024-06-27] MEDS: Glucerna Shake 120 ML LIQUID PO (17:39)
--- NOTE | 2024-06-27 18:14 | CL.I_ITS ---
Patient Name: GISSELL AMBRIZ Study Date: 06/27/2024 Performing: Erwin Doty MD Ht: 66 inches 167.64 cm : 1955 Wt: 149.9 lbs 67.9 kg Age: 68 Gender: male BSA: 1.77 PROCEDURE(S) PERFORMED DC11-(17075)AO ROOT ANGIO WITH HEART CATH IC12-(70747/C9600)RAJENDRA W/WO PTCA, SINGLE CORONARY ARTERY DC04-(89612)LHC/COR/CABG IC12-([id number]/C9600)RAJENDRA W/WO PTCA, SINGLE CORONARY ARTERY CLINICAL PROFILE AND CO-MORBIDITIES Indications: ACS <= 24 hrs, NSTEMI Heart Failure: None CONCLUSIONS CAD as described. Patent 3 out of 4 bypass grafts. Successful RAJENDRA to distal RCA and ostial diagonal 2. RECOMMENDATIONS DESCRIPTION OF PROCEDURE The patient arrived to the procedure lab. The risks and benefits of the procedure as well as a full description of our services here and lack of surgical backup were fully explained to the patient and/or their significant other prior to the catheterization. The Timeout was completed, verifying the correct patient and procedure. The patient's procedural site was prepped and draped in the usual fashion. Local anesthetic was given subcutaneously to right groin region with Lidocaine 2%. Using a modified Seldinger technique, arterial access was obtained via the right femoral artery, with Micropuncture set, arterial access was obtained via the right femoral artery, a 6Fr sheath was inserted.. Left Coronary Artery selective angiography was performed in multiple views using a 5 Fr. JL4 catheter. Right Coronary Artery selective angiography was then performed in multiple views using a 5 Fr. JR 4 catheter. Saphenous Vein graft to the OM 1 and ramus selective angiography was performed in multiple views using a 5 Fr. JR 4 catheter. Right internal mammary artery graft to the Diag selective angiography was performed in multiple views using a 5 Fr. JR 4 catheter. Left internal mammary artery graft to the LAD selective angiography was performed in multiple views using a 5 Fr. IM catheter. Ascending (root) aorta selective angiography was then performed in single view. Ascending (root) aorta selective angiography was then performed in single viewThe images were reviewed and options discussed. A decision was then made to proceed with an Intervention, IVUS or other adjunct procedure. JR4 Guide catheter was inserted and engaged into the RCA. BMW Guide wire was advanced to the RCA. 2X12 Emerge Balloon catheter was inserted. Balloon catheter was advanced across lesion in the right coronary, distal. PTCA balloon inflated at 12 atms for 8 secs. Angiogram performed post balloon dilatation. Priority One inserted Pass # 1 Angiogram performed post priority one aspiration. Angiogram performed post priority one aspiration. Priority One Removed 2.25x20 Emerge Balloon catheter was inserted. Balloon catheter was advanced across lesion in the right coronary, distal. PTCA balloon inflated at 8 atms for 10 secs. PTCA balloon inflated at 10 atms for 12 secs. Angiogram performed post balloon dilatation. 2.25x34 Fountain Drug Eluting stent was inserted. Drug Eluting stent was advanced across the lesion in the right coronary, distal. Angiogram performed post stent deployment. 2.5x20 NC Emerge Balloon catheter was inserted. Balloon catheter was inserted post stent. Angiogram performed post balloon dilatation. XB 3.5 Guide catheter was inserted and engaged into the LCA. Guide wire was advanced to the 2nd Diagonal. 2.25x8 Fountain Drug Eluting stent was inserted. Drug Eluting stent was advanced across the lesion in the second diagonal, ostial 2.25x8 NC Emerge Balloon catheter was inserted. Balloon catheter was inserted post stent. Angiogram performed post balloon dilatation. Angiogram performed post balloon dilatation. Contrast was injected through the sheath and the Right Iliac and Femoral artery were assessed for possible closure device. The arterial sheath was pulled and a Perclose closure device was deployed for hemostasis CORONARY ANGIOGRAPHY DOMINANCE: Right Dominant LEFT MAIN: No significant disease noted LEFT ANTERIOR DESCENDING ARTERY: MID LAD: 100 % Stenosis DISTAL LAD: There is a 60% stenosis in the LAD immediately distal to the KOHLI to LAD anastomosis DIAGONAL 2: Ostial - 90 % Stenosis CIRCUMFLEX ARTERY: PROX CIRC: 50 % Stenosis OM 3: Ostial - 99 % Stenosis RIGHT CORONARY ARTERY: DISTAL RCA: 100 % Stenosis GRAFTS: KOHLI graft to the LAD is patent Saphenous Vein graft to the 3rd OM is patent ELISE (Free ELISE graft) graft to the Diagonal 1 is patent INTERVENTION INFORMATION LESION SITE: RCA (Distal) Lesion Complexity: High/C, chronic total occlusion: No, lesion at bifurcation: No, thrombus present: Yes, lesion length: 29 mm, culprit lesion: Yes, Previously treated lesion: No Pre Stenosis: 100 % Pre intervention KOFI flow: 0 PROCEDURE: Drug Eluting Stent with pre and post dilatation, Thrombectomy Post Stenosis: 0 % Post intervention KOFI flow: 3 Lesion Devices: Cordis 6 Fr JR4 100cm Guide Catheter Multani .014 190cm BMW [place] Straight Alan Sci EMERGE MR 2.00x12 BALLOON Terumo Priority One Aspiration Catheter Alan Sci EMERGE MR 2.25x20 BALLOON Medtronic 2.25 x 34 FREDDY FRONTIER RAJENDRA Alan Sci NC EMERGE MR 2.50x20 BALLOON LESION SITE: 2nd Diagonal (Ostial) Lesion Complexity: High/C, chronic total occlusion: No, lesion at bifurcation: Yes, thrombus present: No, lesion length: 6 mm, culprit lesion: No, Previously treated lesion: No Pre Stenosis: 90 % Pre intervention KOFI flow: 3 PROCEDURE: Drug Eluting Stent with post dilatation Post Stenosis: 0 % Post intervention KOFI flow: 3 Lesion Devices: Multani .014 190cm BMW [place] Straight Cordis 6 Fr XB3.5 100cm Guide Catheter Medtronic 2.25 x 08 FREDDY FRONTIER RAJENDRA Alan Sci NC EMERGE MR 2.25x08 BALLOON COMPLICATIONS No Complications PROCEDURE MEDICATIONS Fentanyl 50 mcg IV Versed 1 mg IV Oxygen: 2 L/min via nasal cannula Brilinta 180 mg PO @ 06/27/2024 11:51:42 Heparin 4000 unit(s) IV 06/27/2024 11:03:44 SUMMARY OF HEMODYNAMIC DATA Time AIR REST ECG 09:38:01 AO 84/46 (61) SA 10:29:24 Signed By Erwin Doty MD On 06/27/2024 18:13:38 Erwin Doty MD
[2024-06-27] MEDS: Insulin Lispro 100 UNIT/ML INSULN.PEN SC (21:03)
[2024-06-27] MEDS: Atorvastatin Calcium 40 MG Tablet PO (21:04)
[2024-06-27] MEDS: Phenytoin Na 100 MG Capsule PO (21:04)
[2024-06-27 22:46] LABS: Bedside Glucose 224 mg/dL (74-106)
[2024-06-28 03:00] VITALS: BP 93/59; PULSE 56; RESP 16; TEMP 36.9; O2SAT 96
[2024-06-28 05:25] LABS: Hematocrit 38.3 % (40-54); Mean Corp Hgb Conc 33.9 g/dL (32-36); Mean Corpuscular Volume 91.2 fL (80-94); Platelet Count 127 K/mm3 (150-450); RBC Distribution Width CV 12.6 % (11.6-14.6); RBC Distribution Width SD 41.1 fl (35.1-43.9); White Blood Count 5.3 K/mm3 (4.4-11.0)
[2024-06-28 05:55] LABS: ALB/GLOB Ratio 1.2 RATIO (0.9-2.4); AST(SGOT) 79 U/L (15-37); Alanine Aminotransfer ALT/SGPT 36 U/L (16-61); Albumin, Serum 2.9 g/dL (3.2-5.0); Alkaline Phosphatase 54 U/L (45-117); Anion Gap 5 (5-15); BUN 29 mg/dL (7-18); BUN/Creat Ratio 32.4 RATIO (10-20); Chloride 106 mmol/L (98-107); EST Glomerular Filtration Rate 89 mL/min (>60); Est Glom Filt Rate - Afr Amer 108 mL/min (>60); Estimated Creatinine Clearance 70.89 ml/min; Globulin 2.4 g/dL (2.2-4.2); Glucose 162 mg/dL (74-106); Potassium 3.5 mmol/L (3.5-5.1); Protein, Total 5.3 g/dL (6.4-8.2); Sodium Level 137 mmol/L (136-145)
[2024-06-28] MEDS: Insulin Lispro 100 UNIT/ML INSULN.PEN SC ×2 (06:08→11:30)
[2024-06-28 06:28] LABS: Bedside Glucose 167 mg/dL (74-106)
[2024-06-28 08:00] VITALS: O2SAT 94
[2024-06-28 09:00] VITALS: BP 99/56; PULSE 54; RESP 18; TEMP 36.4; O2SAT 99
[2024-06-28] MEDS: Phenytoin Na 100 MG Capsule 200 MG PO (09:53)
[2024-06-28] MEDS: Aspirin E.C. 81 MG Tablet PO (09:53)
[2024-06-28] MEDS: Clopidogrel Bisulfate 75 MG Tablet PO (09:53)
[2024-06-28] MEDS: Empagliflozin 10 MG Tablet PO (09:54)
[2024-06-28] MEDS: Multivitamins,Therapeutic Tablet 1 TABLET PO (09:55)
--- NOTE | 2024-06-28 12:15 | EKG12_ITS ---
Test Reason : ADMISSION Blood Pressure : / mmHG Vent. Rate : 065 BPM Atrial Rate : 065 BPM P-R Int : 188 ms QRS Dur : 094 ms QT Int : 390 ms P-R-T Axes : 037 004 114 degrees QTc Int : 405 ms Normal sinus rhythm Possible Inferior infarct , age undetermined Abnormal ECG When compared with ECG of 26-JUN-2024 12:57, MANUAL COMPARISON REQUIRED, DATA IS UNCONFIRMED Confirmed by Roberto Jane ([id number]), metropolitan editor MARTINEZ FOREMAN ([id number]) on 06/30/2024 1:31:07 PM Referred By: Confirmed By:Roberto Jane
--- NOTE | 2024-06-28 12:16 | DCINST_ITS ---
Discharge Instructions Activity Discharge Activity: - (See below for details on instructions) Return to work on:: 07/01/24 Follow Up Care Test Results: Test results from this visit will be discussed in further detail at your follow- up appointment, if applicable. Discharge Plan Admission Admit Date/Time: 06/26/24 15:48 Primary Reason for Your Visit: Chest pain Attending Provider: Femi Miner Primary Care Provider: Juvencio Christy Consulting Providers: Suzette Hankins; Rohini Peterson Instructions Additional Instructions / Restrictions: Please start taking clopidogrel (Plavix) along with aspirin as your blood thinners going forward. Please take the lower dose of lisinopril for now as your blood pressures were somewhat low after the cath. The cardiology office will call to schedule a follow-up appointment soon and can make further adjustments to your medications as needed. Discharge Orders/Prescriptions Prescriptions: New clopidogrel 75 mg Tablet 75 mg PO DAILY 90 Days Qty: 90 0RF lisinopril 5 mg Tablet 5 mg PO DAILY 30 Days Qty: 30 2RF Continued metformin 500 mg tablet extended release 24 hr 1,000 mg PO BID 90 Days Qty: 360 Patient Comments: aspirin [Adult Aspirin Regimen] 81 mg tablet,delayed release (DR/EC) 81 mg PO QDAY multivitamin tablet 1 tab PO QDAY phenytoin sodium extended 100 mg capsule 200 mg PO DAILY atorvastatin 40 mg tablet 40 mg PO QHS metoprolol tartrate 25 mg tablet 12.5 mg PO BID phenytoin sodium extended 100 mg capsule 100 mg PO QPM Rx Instructions: Take 100 mg alternating with 200 mg QPM Jardiance 10 mg tablet 10 mg PO DAILY omega 6-lpm-ciy-fish oil [Fish Oil] 1,200 (144-216) mg capsule 1 cap PO DAILY Discontinued lisinopril 20 mg tablet 20 mg PO DAILY Referrals / Follow Up: Suzette Hankins MD [Med Staff - Active Staff] - Juvencio Christy MD [Primary Care Provider] - Disposition Disposition (needs filled in before D/C Order can be placed): Home, Self Care
--- NOTE | 2024-06-28 12:22 | DS.PCM_ITS ---
Providers Date of Admission: 06/26/24 Date of Discharge: 06/28/24 Primary Care Physician: Dr. Juvencio Christy MD Consultations 06/26/24 17:36 Consult: Cardiology Routine Consulting Provider: Suzette Hankins Reason for Consult: NSTEMI EMERGENT Consult: No MD Notified: Yes Date Notified: 06/26/24 Time Notified: 15:50 Method of Notification: ED Physician Initiated Reason For Visit: NSTEMI Diagnosis Discharge Diagnosis (1) NSTEMI (non-ST elevated myocardial infarction): Status: Acute Code(s): I21.4 - Non-ST elevation (NSTEMI) myocardial infarction (2) H/O coronary artery bypass surgery: Status: Resolved Code(s): Z95.1 - Presence of aortocoronary bypass graft Medications at Discharge Home Medications aspirin 81 mg tablet,delayed release (Adult Aspirin Regimen) 81 mg PO QDAY heart [facility] 01/15/18 metformin 500 mg tablet,extended release 24 hr 1,000 mg PO BID diabetes 90 days #360 tabs 01/15/18 multivitamin 1 tab PO QDAY supplement 01/15/18 atorvastatin 40 mg tablet 40 mg PO QHS cholesterol 10/16/19 metoprolol tartrate 25 mg tablet 12.5 mg PO BID heart/BP 10/19/20 phenytoin sodium extended 100 mg capsule 100 mg PO QPM seizures 10/20/21 phenytoin sodium extended 100 mg capsule 200 mg PO DAILY seizures 10/20/21 empagliflozin 10 mg tablet (Jardiance) 10 mg PO DAILY diabetes 10/23/23 omega 8-nov-ybg-fish oil 1,200 mg (144 mg-216 mg) capsule (Fish Oil) 1 cap PO DAILY supplement 06/26/24 clopidogrel 75 mg tablet 75 mg PO DAILY 90 days #90 tabs 06/28/24 lisinopril 5 mg tablet 5 mg PO DAILY 30 days #30 tabs 06/28/24 Hospital Course Operations None Procedures Cardiac catheterization, EKG, Transthoracic echo and - (Chest x-ray) Summary of Care Provided Minutes Spent on Discharge: 35 Hospital Course: Patient is a 68-year-old male who presented [facility] ED on 06/26/2024 with chest pain. Hospital course as noted below. Patient discharged home in stable condition on 06/28. 1. NSTEMI type I ? Cardiology followed. Prior history of CABG x 4 as noted below. EKG on admit showed ST depression in the inferior and lateral leads. Troponin trend 5117 > 6402 > 29503. Left heart cath on 06/27 showed distal RCA lesion and second diagonal lesion with successful drug-eluting stent placement x 2. 3 of 4 bypass grafts were patent. Echo on 06/27 showed EF 50 to 55%, septal and inferior hypokinesis, no evidence of diastolic dysfunction. Patient did well post cath. Had mildly low blood pressures post cath with some improvement with IV fluids. Decreased lisinopril dose from 20 mg to 5 mg daily on discharge. Otherwise continue home aspirin, Plavix, statin, empagliflozin and Lopressor on discharge. Close outpatient follow-up with cardiology. 2. History of CAD s/p CABG, hypertension, hyperlipidemia ? History of CABG x 4 at [facility] in 2018. Follows with [place] [facility]. Treatment as above. Chronic medical conditions: ? Type 2 diabetes with hyperglycemia: A1c 6.6%. Continued home Jardiance with sliding scale insulin with meals while inpatient. Okay to resume home metformin on discharge. ? History of GERD: Not currently on PPI. Monitored symptoms. ? Seizure disorder: Continue home phenytoin. No current issues. Total clinical time spent by myself addressing the patient's medical issues, reviewing all the data, and collaborating with patient's care team: 35 minutes. Physical Exam Const alert, oriented x3, no apparent distress and average body habitus Constitutional Narrative: Pleasant elderly male, sitting up comfortably in bedside chair, conversing normally, no acute distress. General Appearance: cooperative and comfortable HEENT normocephalic, head/scalp atraumatic, hearing grossly normal bilaterally, nasal mucous membranes and turbinates normal and moist oral mucous membranes Eyes PERRL, EOMs intact bilaterally and conjunctivae normal Neck full ROM Chest inspection of chest normal Resp normal respiratory effort, normal air movement, no use of accessory muscles and clear to auscultation bilaterally Cardio regular rate, regular rhythm, no murmurs and peripheral pulses 2+ throughout GI normal to inspection, nondistended, normoactive bowel sounds, soft to palpation, non-tender and non-distended Back/Spine normal ROM Extremity normal to inspection, full ROM and no pedal edema Skin no rashes or lesions noted Neuro no focal motor deficits and no sensory deficits noted Speech: speech normal Psych mental status grossly normal Weight / BMI Weight Weight: 67.9 kg Body Mass Index (BMI) 24.1 ABG / Lab / Microbiology Data 06/28/24 04:35 06/28/24 04:35 Laboratory: Laboratory Results - last 24 hr 06/27/24 12:13: POC Glucose 139 H 06/27/24 21:00: POC Glucose 224 H 06/28/24 04:35: WBC 5.3, RBC 4.20 L, Hgb 13.0, Hct 38.3 L, MCV 91.2, MCH 31.0, MCHC 33.9, RDW Std Deviation 41.1, RDW Coeff of Leticia 12.6, Plt Count 127 L, MPV 10.0, Sodium 137, Potassium 3.5, Chloride 106, Carbon Dioxide 26.0, Anion Gap 5, BUN 29 H, Creatinine 0.90, Estim Creat Clear Calc 70.89, Est GFR (MDRD) Af Amer 108, Est GFR (MDRD) Non-Af 89, BUN/Creatinine Ratio 32.4 H, Glucose 162 H, Calcium 9.0, Total Bilirubin 0.50, AST 79 H, ALT 36, Alkaline Phosphatase 54, T otal Protein 5.3 L, Albumin 2.9 L, Globulin 2.4, Albumin/Globulin Ratio 1.2 06/28/24 06:06: POC Glucose 167 H Radiography Diagnostic Testing: Radiology Impression Echocardiogram 06/27/24 08:00 Interpretation Summary The estimated ejection fraction is 50-55 %. No evidence for diastolic dysfunction. Septal and inferior hypokinesis Trivial mitral valve insufficiency. Ordering Physician: Suzette Hankins Referring Physician: Juvencio Christy Performed By: Kayli Cordova RCS D/C Instructions Return to work on: 07/01/24 Meaningful Use Info Meaningful Use Meaningful Use Diagnoses (Choose all that apply): AMI AMI/Post PCI/Angioplasty Aspirin given w/in 24hrs of arrival?: Yes ASA at discharge?: Yes Statins at discharge?: Yes Nba/ARB at discharge?: Yes Beta Marita at discharge?: Yes Done w/ Acute AR measure.: Yes Ischemic Stroke Statin Dosing Therapy Reference: STATIN DOSE THERAPY REFERENCE: * Patients > 75 years receive moderate or high dose statin therapy. * Patients 75 years or YOUNGER should receive HIGH intensity statin dose unless contraindicated. You will be required to document reason for non-treatment if statin daily dose does not meet guidelines. HIGH DOSE STATIN THERAPY DAILY Atorvastatin > than or = to 40 mg Rosuvastatin > than or = to 20 mg Amlodipine + Atorvastatin > than or = to 2.5/40 mg Ezetimibe + Simvastatin 10/80 mg Simvastatin 80mg Discharge Plan Admission Admit Date/Time: 06/26/24 15:48 Primary Reason for Your Visit: Chest pain Attending Provider: Femi Miner Primary Care Provider: Juvencio Christy Consulting Providers: Suzette Hankins; Rohini Peterson Instructions Patient Instructions: Cardiac Catheterization Dc Additional Instructions / Restrictions: Please start taking clopidogrel (Plavix) along with aspirin as your blood thinners going forward. Please take the lower dose of lisinopril for now as your blood pressures were somewhat low after the cath. The cardiology office will call to schedule a follow-up appointment soon and can make further adjustments to your medications as needed. Discharge Orders/Prescriptions Prescriptions: New clopidogrel 75 mg Tablet 75 mg PO DAILY 90 Days Qty: 90 0RF lisinopril 5 mg Tablet 5 mg PO DAILY 30 Days Qty: 30 2RF Continued metformin 500 mg tablet extended release 24 hr 1,000 mg PO BID 90 Days Qty: 360 Patient Comments: aspirin [Adult Aspirin Regimen] 81 mg tablet,delayed release (DR/EC) 81 mg PO QDAY multivitamin tablet 1 tab PO QDAY phenytoin sodium extended 100 mg capsule 200 mg PO DAILY atorvastatin 40 mg tablet 40 mg PO QHS metoprolol tartrate 25 mg tablet 12.5 mg PO BID phenytoin sodium extended 100 mg capsule 100 mg PO QPM Rx Instructions: Take 100 mg alternating with 200 mg QPM Jardiance 10 mg tablet 10 mg PO DAILY omega 5-qhv-mji-fish oil [Fish Oil] 1,200 (144-216) mg capsule 1 cap PO DAILY Discontinued lisinopril 20 mg tablet 20 mg PO DAILY Referrals / Follow Up: Suzette Hankins MD [Med Staff - Active Staff] - Juvencio Christy MD [Primary Care Provider] - Disposition Disposition (needs filled in before D/C Order can be placed): Home, Self Care Charges/Coding Visit Charges Inpatient E&M: 00464 Disch Hosp >30min
[2024-06-28 13:33] VITALS: BP 103/56; PULSE 54; RESP 16; TEMP 36.1; O2SAT 98
[2024-06-28 18:17] LABS: Bedside Glucose 189 mg/dL (74-106)
== END 2024-06-28 13:56 | disposition home or self-care (01) | DRG 322 ==
LOC: ED 15:02 → PCU 16:47
PROVIDERS: Specialist; Admitting Provider Internal Medicine; Emergency Provider Emergency Medicine; PCP Family Medicine; Visit Provider Hospitalist
DX: I21.4 Non-ST elevation (NSTEMI) myocardial infarction (principal); E11.42 Type 2 diabetes mellitus with diabetic polyneuropathy; G40.909 Epilepsy, unspecified, not intractable, without status epilepticus; I10 Essential (primary) hypertension; E11.65 Type 2 diabetes mellitus with hyperglycemia; E78.2 Mixed hyperlipidemia; I25.10 Atherosclerotic heart disease of native coronary artery without angina pectoris; K21.9 Gastro-esophageal reflux disease without esophagitis; Z79.84 Long term (current) use of oral hypoglycemic drugs; Z79.82 Long term (current) use of aspirin; Z95.1 Presence of aortocoronary bypass graft
CPT/HCPCS: 36415; 71045; 80048; 80053; 80061; 82962; 83036; 83735; 84100; 84484; 85025; 85027; 85610; 85730; 92928; 93005; 93306; 93454; 93455; 93567; 94668; 95886; 95912; 97802; 99152; 99153; 99285; C1757; C1874; C1894; J7030; Q9967; A4216; C1725; C1760; C1769; C1887; C9600; J1327

== ENCOUNTER → 2024-07-09 | Outpatient (CLI) | payer MEDICARE, OTHER, SELFPAY ==
--- NOTE | 2024-07-09 13:04 | PCM.CR.HP2 ---
CR - History & Physical General Arrival date:: 07/09/24 Arrival time:: 13:04 Date of Referral:: 06/27/24 Date of CR Evaluation:: 07/09/24 Referring Physician: Dr. Hankins Primary Diagnosis: PTCA History of Present Cardiac Event Onset Date PTCA or coronary stenting:: Yes (onset 06/26/2024) Vessel: RCA, ostial diagonal 2 Medications Ambulatory Orders ?Medication ?Instructions ?Recorded aspirin 81 mg tablet,delayed 81 mg PO QDAY heart health 01/15/18 release (Adult Aspirin Regimen) metformin 500 mg tablet,extended 1,000 mg PO BID diabetes 90 days 01/15/18 release 24 hr #360 tabs multivitamin 1 tab PO QDAY supplement 01/15/18 atorvastatin 40 mg tablet 40 mg PO QHS cholesterol 10/16/19 metoprolol tartrate 25 mg tablet 12.5 mg PO BID heart/BP 10/19/20 phenytoin sodium extended 100 mg 100 mg PO QPM seizures 10/20/21 capsule phenytoin sodium extended 100 mg 200 mg PO DAILY seizures 10/20/21 capsule empagliflozin 10 mg tablet 10 mg PO DAILY diabetes 10/23/23 (Jardiance) omega 6-mth-cmh-fish oil 1,200 mg 1 cap PO DAILY supplement 06/26/24 (144 mg-216 mg) capsule (Fish Oil) clopidogrel 75 mg tablet 75 mg PO DAILY 90 days #90 tabs 06/28/24 lisinopril 5 mg tablet 5 mg PO DAILY 30 days #30 tabs 06/28/24 Allergies Allergies No Known Allergies Allergy (Verified 06/26/24 11:28) Sleep Disorder Evaluation Hx of Sleep Apnea: No Do you snore loudly (louder than talking or can be heard through closed doors)?: No Do you often feel tired/ fatigued/ sleepy during daytime?: No Has anyone observed you stop breathing during sleep?: No History of Hypertension (for STOP score): Yes STOP Results: Negative Advanced Directives Advanced Directives Power of Camp Boss: No Living Will: No Advance Directives Information Provided: No Advance Directives on File: No DNR Order?:: No Past Medical History Covid-19 Screening Physicial Symptoms Other Clinical Concerns Exposure Risk Pertinent Comorbidities 65 years or older:: Yes Has a serious heart condition:: Yes Diabetic:: Yes Past Medical Illness Past Medical History (Updated 07/03/24 @ 00:02 by Background Daemon) Coronary artery disease I25.10 NSTEMI (non-ST elevated myocardial infarction) (06/26/24) I21.4 Anxiety F41.9 Diabetes E11.9 Pancreatitis K85.90 Non-smoker Z78.9 Myocardial infarct I21.9 Chest pain R07.9 Hypertension I10 Essential hypertension I10 Hyperlipidemia E78.5 History of non-ST elevation myocardial infarction (NSTEMI) (02/16/18) I25.2 Atherosclerotic heart disease of [place] coronary artery without angina pectoris (02/2018) I25.10 GERD (gastroesophageal reflux disease) K21.9 Dyspnea R06.00 Chest pain R07.9 Seizure disorder G40.909 Type 2 diabetes mellitus without complications E11.9 Abnormal cardiovascular stress test R94.39 Past Surgical History Past Surgical History (Updated 07/03/24 @ 00:02 by Background Daemon) S/P PTCA (percutaneous transluminal coronary angioplasty) Z98.61 Balloon angioplasty only (no stent) to RCA H/O coronary artery bypass surgery (02/18/18) Z95.1 CABG x 4 : KOHLI-LAD, Free ELISE-D1, SVG-Ramus, SVG-OM1 02/18/2018 History of left heart catheterization (01/23/18) Z98.890 History of colonoscopy (~05/2021) Z98.890 2007, May 2021 History of cholecystectomy Z90.49 Family History Summary Family History Mother , age 89 Hypertension Father , age 60's from rare neurological condition No problems noted. Brother CAD (coronary artery disease) Stented coronary artery Social History Smoking History Smoking Status: Never smoker Hx Tobacco Use: Yes (chewed tobacco for 20-30 years. stopped 15 years ago.) Alcohol Use Alcohol Usage: No Substance Abuse Hx Substance Use: No Occupation Occupation (List type of work in comments):: Retired Hobbies, Recreation, Social Activities Hobbies: Other (yardwork) Recreational Activities: I am able to engage in all my recreational activities Social Environment Status Marital Status: Current Living Arrangements Living Environment:: Spouse Children How many children do you have?: 2 Do any of your children live nearby?: Yes Safety Do you feel safe in your surroundings?: Yes Assistance Do you need any assistance at home?: no Review of Systems Review of Systems Hints Review of Present Symptoms: Reports Dizziness/Lightheadedness, Fatigue and Appetite - Special Diet; Denies Shortness of Breath at Rest, Shortness of Breath with Exertion, PVD, Operative Discomfort, Angina, Wound Healing, Heart Arrhythmia/Irregularities, Appetite - Normal or Sexual Changes Pain Is Patient Pain Free?: No Pain Location: other (feet) Pain Level: 12/15 Risk Factor Assessment Chief Complaint Chief Complaint: PTCA Vital Signs Pulse Ox: 98 Blood Pressure: 142/62 Pulse Pulse Rate: 61 Pulse Rhythm: Regular Hypertension Blood Pressure Sitting - Right Arm: 142/62 Stress Stress: - (worries) Diabetes Diabetic History: Type II Nutrition Referral for Diabetes: No Obesity Height: 5 ft 6 in Weight:: 150 lb Weight in Pounds: 150.0 lbs Body Mass Index (BMI): 24.2 Nutritional Referral for Obesity: No Physical Inactivity Physical Inactivity: Reg Exercise 30 min/day Risk Stratification Risk Guidelines: Lowest Risk: Risk Factor for Smoking and Risk Factor for Obesity, Moderate Risk: Risk Factor for Sedentary Lifestyle and Risk Factor for Depression and Highest Risk: Risk Factor for Dyslipidemia, Risk Factor for Diabetes and Risk Factor for Hypertension For Smoking Smoking Risk Guidelines For Dyslipidemia Dyslipidemia Risk Guidelines For Diabetes Mellitus Diabetes Risk Guidelines For Obesity/Overweight Obesity/Overweight Risk Guidelines For Hypertension Hypertension Risk Guidelines For Sedentary Lifestyle Sedentary Lifestyle Risk Guidelines For Depression Depression Risk Guidelines Family History Family History Mother Hypertension Father No problems noted. Brother CAD (coronary artery disease) Stented coronary artery Motivation Motivation to Participate On a scale of 1 to 10, how prepared are you to commit to attending program?: 10 What do you see as barriers to successfully being able to complete the program?: nothing What do you see as the benefits of succesfully completing the program? In other words, what do you hope to get out of participating in the program?: more energy, confidence Are there issues you are dealing with that will interfere with completing the program?: no Do you have a spouse or signficant other, family or friends who will help support you to complete the program?: yes
--- NOTE | 2024-07-09 13:10 | CR.ITP_ITS ---
Diagnosis General Information Admitting Diagnosis: PTCA Personal Learning Style:: Audio/Visual Barriers to Learning: No Barriers Stage of change r/t lifestyle modifications:: Contemplation Gave educational material for:: Treating Heart Disease, How The Heart Works, What it means to have Heart Disease, How Coronary Artery Disease is Diagnosed, Heart Procedures, What Heart Medications Do, Risk Factors & Modifications, Living an Active Life, Nutrition, Emotions & Heart Disease, Stress Management & Relaxation and Sleep Disorders & Heart Disease Education/Goals Cardiac Rehabilitation Goals Personal Goals: Initial Assessment: Improve management of stress and emotions, Improve energy level, Get back to work, or to resume activities faster, Improve knowledge of cardiac disease, Improve muscle strength and endurance, Improve diet and eating habits (eat healthier) and Control risk factors (learn risk factor modification) Scale for measuring improvement of personal goals Diagnosis & Disease Process Outcomes/Goals: Pt IDs own risk factors & lifestyle modifications by Session 10, Verbalizes symptoms of angina & response by session 3., Pt independently manages and Other Additional Outcomes/Goals: Plan/Interventions: Assist Pt to ID & engage in lifestyle modification to reduce CVD risk, Instruct on individual risk factors, Review symptoms of angina & emergency actions, Review secondary diagnosis & identify educational needs. and Other see comment 30 day Reassessments:: Not Met 30 day Reassessments:: Not Met 30 day Reassessments:: Not Met 30 day Reassessments:: Not Met Final Reassessments:: Not Met Safety Referral to Physical Therapy: No Referral to [facility] Case Management: No Fall Risk Assessed:: Yes Assistive Devices:: None Exercise - Initial Assessment Visit Date of Eval: 07/09/24 (initial eval ) Mets: Pre-: >3 METS for 30 minutes by discharge, >5 METS for 30 minutes by discharge, >7 METS for 30 minutes by discharge and Unable to meet goal due to: (see comment below) Physician Prescribed Exercise Modalities: Treadmill, Rower, Schwinn Airdyne AD-7, SciFit Stepper, SciFit Pro- II Ergometer and SciFit Lateral [place] Frequency: 3x/week for 12 weeks [36 sessions] Intensity: 60-80% of age predicted maximum heart rate reserve Duration: 30 - 45 minutes Current METSs:: 3 Target Heart Rate:: 91-114 Resting Blood Pressure: 142/62 EKG Type: NSR Outcomes & Goals Goals:: Verbalizes understanding of THR, RPE & goal METS by session 6, Documents in home exercise log/reports 30 min aerobic 5 day/wk by DC, Demonstrates accurate pulse taking by DC and Other additional outcome/goals: see below Intervention & Plan Exercise Program Goals: Instruct on personal THR & RPE, Instruct on MET level & personal MET goal, Show patient to take own pulse /validate performance until accurate, Instruct on home exercise and Other additional plan/int Physical Activity Home Exercise Physical Activity - Home Exercise: Safe Exercise, Warm-up, Self-monitoring, Cool-Down, Home Exercise > 30 min Daily and Sitting Time <3 hours/daily Outcomes & Goals Outcomes/Goals: Demonstrates correct Warm-up/exercise Cool-Down (S3) if = 2.5 METs, Verbalizes symptoms of exercise intolerance by Session 3 (S3), Demonstrate safe equipment use (S3) & follows exercise prescrition (6) and Other: See below Intervention & Plan Plan/Intervention: Instruct warm-up & cool-down if exercising at > 2 METs, Instruct on symptoms of exercise intolerance & actions to take, Instruct & monitor on saf, Assess intial functional capacity & safety risk and Other See below Nutrition - Initial Assessment Program Goals Nutrition Program Goals Patient has diagnosis of Hyperlipidemia (ICD E78)?: Yes Visit Date of Eval: 07/09/24 (initial eval ) Cholesterol/Lipids (Other Core Measures) Determine presence & major risk factors that modify LDL goal: Hypertension or hypertensive medication, Low HDL cholesterol <40 mg/dL*, Family history of premature CHD in Male < 55 years: female <65 yearsFa and Age men > 45 years; women >/= 55 years Outcomes/Goals: Pt IDs own risk factors & lifestyle modifications by Session 10, Verbalizes symptoms of angina & response by session 3., Pt independently manages and Other Additional Outcomes/Goals: Intervention/Plan: Advocate for lipid panel cholesterol medication if applicable, Instruct on personal lipid levels & lipid goals/NCEP guidelines, Instruct on cholesterol and Other additional plan/int Referral to dietitian:: No (declines) Diabetes (Other Core Measures) Diabetes Type: 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 E11 Insulin dependent injection/pump?: No Non-Insulin Dependent?: Yes Do you monitor your blood sugar at home?: Yes Referral to Diabetic Clinic:: No Outcomes/Goals:: Able to state symptoms of, Able to state, Able to state and Other additional Intervention/Plan:: Instruct on, Refer to, Instruct on and Other Weight Mgt (Other Care) Height: 5 ft 6 in Weight:: 150 lb BMI: 24.2 Diagnosis Overweight/Obesity BMI> 30% ICD-10 E66: No Diagnosis High BMI/Morbid Obesity BMI> 35% ICD-10 Z68: No Outcomes/Goals: Pt sets, maintains & shows weight loss goal & trend during rehab and Other additional outcomes/goals Intervention/Plan: Instruct on ideal BMI & set weight loss goal w/patient, Assist pt to ID & incorporate diet changes for weight loss by S9, Refer to Structured Weight Loss program as appropriate, Encourage goal of using 250- 300dcal per session for weight loss and Other additional plan/interventions Healthy Eating Habits Will attend diet classes:: Yes Outcomes/Goals:: Consume diet rich in vegs,fruits,whole grain/high fiber,fish,lean meat, Limit sat/trans fats,cholesterol & added salts & sugars and Other additional outcome/goals: Intervention/Plan:: Assess current eating habits and Other Additional plan/interventions Education Gave educational materials for:: Signs & symptoms of hypoglycemia, Signs & symptoms of hyperglycemia, Relate diabetes to coronary artery disease and Healthy eating Core - Initial Assessment Visit Date of Eval: 07/09/24 (initial eval) Medication Compliance Preventative Medication(s):: Aspirin, BEE inhibitor, Clopidogrel/P2Y12 inhibit, Statin/lipid and Beta radha H/O mental health issues: depression, anxiety, or addiction?: Yes Doesn?t believe in the benefits of treatment?: No Believes medications are unnecessary or harmful?: No Has a concern about medication side effects?: No Expresses concern over the cost of medications?: No Outcomes/Goals: Verbalizes medications,desired effect & common side effects @ DC, Pt self-reports following medication regimen, Keeps card in wallet w/medications listed by DC and Other additional outcome/goals: Interventions/plans: Instruct on medication effects & side effects, Review medication list w/patient every two weeks, Instruct importance of taking meds as ordered & assist problem solving and Other additional Tobacco Use Tobacco Use: Non-smoker Do you use smokeless tobacco?: No (pt has a history of smokeless tobacco.) Hypertension Hypertension Diagnosis:: Hypertension ICD-10 I10 Resting Blood Pressure:: 142/62 [place] [employer] Hypertension Guidelines Outcomes/Goals: Able to verbalize/achieve optimal blood pressure <130/80 Interventions/plan: Instruct on optimal blood pressure, hypertension & medications Tobacco Cessation Referral Smoking Cessation Referral:: No Individual Education/Counseling:: No Education Schedule Given:: Yes Psychosocial - Initial Assess VIsit Date of Eval: 07/09/24 (initial eval ) History of previous Mental disease:: Yes History of Emotional Disorders: Anxious Target Goals Target Goals Psychosocial Test Tool Used:: [employer] Power QOL Cardiac and PHQ-9 Questionnaire phq-9 Severity Referral to Behavioral Health PS - Interventions: Yes: Attend Stress Management Classes Outcomes/Goals: See list Psychosocial Outcomes/Goals:: ID's personal stressors & 2 strategies to manage stress by discharge and Other Additional outcome/goals: Intervention/Plan: See List Interventions/Plan:: Assess stressors,coping strategies & signs of derpression on admission, Instruct/assist pt to develop coping & personal stress Mgt str ategies, Refer to Behavioral Health if appropriate, Refer to Physician if appropriate, Instruct patient to recognize signs & symptoms of depression, Instruct patient to recog and Other additional plan/intervention Patient Health Questionnaire PHQ-9 Screening Initial Assessment: 1. Little interest or pleasure in doing things: More than half the days 2. Feeling down, depressed, or hopeless: More than half the days 3. Trouble falling or staying asleep, or sleeping too much: Several days 4. Feeling tired or having little energy: Several days 5. Poor appetite or overeating: Not at all 6. Feeling bad about yourself -- or that you are a failure or have let yourself or your family down: More than half the days 7. Trouble concentrating on things, such as reading the newspaper or watching television: More than half the days 8. Moving or speaking so slowly that other people could have noticed. Or the opposite - being so fidgety or restless that you have been moving around a lot more than usual: Not at all 9. Thoughts that you would be better off , or of hurting yourself in some way: Not at all How difficult have these problems made it for you to do your work, take care of things at home, or get along with other people?: Somewhat difficult Total Score: 10 ANGEL-Q SV Test Statements CAD is a disease of the arteries in the heart: False Examples of risk factors for heart disease: True Angina is chest pain or discomfort: True The benefits of resistance training include: True Eating more meat and dairy products: False Anti-platelet medications such as aspirin are important: True The only effective way to manage stress: False An exercise warm-up slowly increases heart rate: I Don't Know Prepared, processed foods usually have high sodium: True Depression is common after a heart attack: True The statin medications lower cholesterol: True To control blood pressure, lower the amount of sodium: I Don't Know If someone gets chest discomfort during walking: False Transfats are partially hydrogenated vegetable oils: False Sleep apnea that is not treated increases the risk: I Don't Know To control cholesterol, one should become a vegetarian: False Someone knows if he/she is exercising at the right level: True Diabetes cannot be prevented with exercise & health eating: False Stress is a large risk for heart attack: True A diet that can help lower blood pressure is rich in: True Total Score Total Correct Responses: 16 Self-Efficacy 6-Item Scale Initial Assessment: We would like to know how confident you are in doing certain activities. Please select your confidence level for: Fatigue Select Number: 5 Physical Discomfort or Pain Select Number: 5 Emotional Distress Select Number: 5 Other Symptoms or Health Problems Select Number: 5 Different Tasks and Activities Select Number: 5 Medication Select Number: 5 Total Score:: 5 Nutrition Survey Nutrition Survey Instructions Scoring Instructions Nutrition Survey Initial: Have you lost >10 lbs over the past 2 months without trying?: No Are you following a special diet at home for diabetes, low fat, or low salt?: Yes Are you interested in meeting with a dietitian for help understanding your diet?: No Do you eat less than 3 meals a day?: No Do you eat fatty meats (worley, sausage, ribs, etc), fried foods, desserts, large amounts of salad dressings, margarine, butter, or cheese most days?: No Do you eat in restaurants more than 3 times a week?: No Do you season food with salt, seasoning salt, or garlic salt?: Yes Do you used canned, boxed, frozen meals, or soups, seasoning packets?: No Exercise - 30-day Assessment Physician Prescribed Exercise Modalities: Treadmill, [place] AD-7, SciFit Stepper, SciFit Pro- II Ergometer and SciFit Lateral Painter Decorator Exercise - 60-day Assessment Physician Prescribed Exercise Modalities: Treadmill, Rower, Schwinn Airdyne AD-7, SciFit Stepper, SciFit Pro- II Ergometer and SciFit Lateral [place] Exercise - 90-day Assessment Physician Prescribed Exercise Modalities: Treadmill, Rower, Schwinn Airdyne AD-7, SciFit Stepper, SciFit Pro- II Ergometer and SciFit Lateral [place] Exercise - Final/Discharge Physician Prescribed Exercise Modalities: Treadmill, Rower, Schwinn Airdyne AD-7, SciFit Stepper, SciFit Pro- II Ergometer and SciFit Lateral Painter Decorator Frequency: 3x/week for 12 weeks [36 sessions] Intensity: 60-80% of age predicted maximum heart rate reserve Current METSs:: 3 Target Heart Rate:: 91-114 Nutrition - 30-Day Assessment Weight Mgt (Other Care) Height: 5 ft 6 in Weight:: 150 lb BMI: 24.2 Nutrition - 60-Day Assessment Weight Mgt (Other Care) Height: 5 ft 6 in Weight:: 150 lb BMI: 24.2 Core - Final Assessment Hypertension Resting Blood Pressure:: 142/62 [place] [employer] Hypertension Guidelines Core - 60-Day Assessment Hypertension Resting Blood Pressure:: 142/62 [place] [employer] Hypertension Guidelines Psychosocial - 30-Day Assess Target Goals Target Goals Referral to Behavioral Health PS - Interventions: Yes: Attend Stress Management Classes Psychosocial - 60-Day Assess Target Goals Target Goals Referral to Behavioral Health PS - Interventions: Yes: Attend Stress Management Classes Psychosocial - 90-Day Assess Target Goals Target Goals Referral to Behavioral Health PS - Interventions: Yes: Attend Stress Management Classes Psychosocial - Final Assessmen Target Goals Target Goals Referral to Behavioral Health PS - Interventions: Yes: Attend Stress Management Classes Nutrition - 90-Day Assessment Weight Mgt (Other Care) Height: 5 ft 6 in Weight:: 150 lb BMI: 24.2 Nutrition - Final Assessment Program Goals Patient has diagnosis of Hyperlipidemia (ICD E78)?: Yes Weight Mgt (Other Care) Height: 5 ft 6 in Weight:: 150 lb BMI: 24.2
[2024-07-09 13:38] VITALS: BP 142/62; PULSE 61; O2SAT 98
[2024-07-09 14:15] VITALS: BP 142/62; BMI 24.2
== END | disposition home or self-care (01) ==
LOC: CR 12:57
PROVIDERS: PCP Family Medicine; Referring Provider Internal Medicine Cardiovascular Disease; Visit Provider Internal Medicine Cardiovascular Disease
DX: I21.4 Non-ST elevation (NSTEMI) myocardial infarction (principal); I25.10 Atherosclerotic heart disease of native coronary artery without angina pectoris; E78.2 Mixed hyperlipidemia; Z98.61 Coronary angioplasty status; Z95.1 Presence of aortocoronary bypass graft

== ENCOUNTER 2024-08-06 10:15 | Outpatient (RCR) | payer MEDICARE, OTHER, SELFPAY ==
[2024-07-09 14:15] VITALS: BMI 24.2
== END 2024-08-07 23:59 ==
LOC: CR 10:15
PROVIDERS: PCP Family Medicine; Referring Provider Internal Medicine Cardiovascular Disease; Visit Provider Internal Medicine Cardiovascular Disease
DX: I25.10 Atherosclerotic heart disease of native coronary artery without angina pectoris (principal); I21.4 Non-ST elevation (NSTEMI) myocardial infarction; E78.2 Mixed hyperlipidemia; Z98.61 Coronary angioplasty status; Z95.1 Presence of aortocoronary bypass graft
CPT/HCPCS: 93798

== ENCOUNTER → 2024-08-26 | Outpatient (CLI) | payer MEDICARE, OTHER, SELFPAY ==
[2024-07-09 14:15] VITALS: BMI 24.2
[2024-08-08 08:30] VITALS: BMI 23.6
== END | disposition home or self-care (01) ==
PROVIDERS: PCP Family Medicine; Referring Provider Internal Medicine Cardiovascular Disease; Visit Provider Internal Medicine Cardiovascular Disease
DX: I49.8 Other specified cardiac arrhythmias (principal); I49.3 Ventricular premature depolarization
CPT/HCPCS: 93225; 93226

== ENCOUNTER 2024-09-03 10:15 | Outpatient (RCR) | payer MEDICARE, OTHER, SELFPAY ==
[2024-07-09 14:15] VITALS: BMI 24.2
--- NOTE | 2024-08-08 08:17 | CR.ITP_ITS ---
Exercise - Initial Assessment Visit Session #:: 11 Physician Prescribed Exercise Modalities: Treadmill, Rower and Schwinn Airdyne AD-7 Nutrition - Initial Assessment Weight Mgt (Other Care) Height: 5 ft 6 in Weight:: 146 lb BMI: 23.6 Psychosocial - Initial Assess Target Goals Target Goals Referral to Behavioral Health PS - Interventions: Yes: Attend Stress Management Classes Patient Health Questionnaire PHQ-9 Screening 30-Day Re-eval Assessment: 1. Little interest or pleasure in doing things: More than half the days 2. Feeling down, depressed, or hopeless: More than half the days 3. Trouble falling or staying asleep, or sleeping too much: Several days 4. Feeling tired or having little energy: Several days 5. Poor appetite or overeating: Not at all 6. Feeling bad about yourself -- or that you are a failure or have let yourself or your family down: Not at all 7. Trouble concentrating on things, such as reading the newspaper or watching television: More than half the days 8. Moving or speaking so slowly that other people could have noticed. Or the opposite - being so fidgety or restless that you have been moving around a lot more than usual: Not at all 9. Thoughts that you would be better off , or of hurting yourself in some way: Not at all How difficult have these problems made it for you to do your work, take care of things at home, or get along with other people?: Somewhat difficult Total Score: 8 Self-Efficacy 6-Item Scale 30-Day Re-eval Assessment: We would like to know how confident you are in doing certain activities. Please select your confidence level for: Fatigue Select Number: 5 Physical Discomfort or Pain Select Number: 5 Emotional Distress Select Number: 5 Other Symptoms or Health Problems Select Number: 5 Different Tasks and Activities Select Number: 5 Medication Select Number: 5 Total Score:: 5 Nutrition Survey Nutrition Survey Instructions Scoring Instructions Exercise - 30-day Assessment Visit Date of Eval: 08/08/24 Session #:: 11 Physician Prescribed Exercise Modalities: Treadmill, Rower and Schwinn Airdyne AD-7 Frequency: 3x/week for 12 weeks [36 sessions] Intensity: 60-80% of age predicted maximum heart rate reserve Duration: 30 - 45 minutes Current METSs:: 4.9 Target Heart Rate:: 91-114 Current RPE:: 11.5-13 Maximum Excercise HR:: 97 Resting Blood Pressure: 126/70 Maximum Exercise Blood Pressure: 152/74 EKG Type: NSR with Twave inversion, rare PVC's/PAC's. Outcomes & Goals Goals:: Verbalizes understanding of THR, RPE & goal METS by session 6, Documents in home exercise log/reports 30 min aerobic 5 day/wk by DC, Demonstrates accurate pulse taking by DC and Other additional outcome/goals: see below Intervention & Plan Exercise Program Goals: Instruct on personal THR & RPE, Instruct on MET level & personal MET goal, Show patient to take own pulse /validate performance until accurate, Instruct on home exercise and Other additional plan/int 30-day Reassessments 30 day Reassessments:: Progressing Reassessment Notes & Comments:: Pt is able to increase his exercise intensity. Pt understands the benefits of exercise. Physical Activity Home Exercise Physical Activity - Home Exercise: Safe Exercise, Warm-up, Self-monitoring, Cool-Down, Home Exercise > 30 min Daily and Sitting Time <3 hours/daily Outcomes & Goals Outcomes/Goals: Demonstrates correct Warm-up/exercise Cool-Down (S3) if = 2.5 METs, Verbalizes symptoms of exercise intolerance by Session 3 (S3), Demonstrate safe equipment use (S3) & follows exercise prescrition (6) and Other: See below Intervention & Plan Plan/Intervention: Instruct warm-up & cool-down if exercising at > 2 METs, Instruct on symptoms of exercise intolerance & actions to take, Instruct & monitor on saf, Assess intial functional capacity & safety risk and Other See below 30-day Reassessments 30 day Reassessments:: Progressing Reassessment Notes & Comments:: Proper warm up encouraged. Pt is able to return demonstration. Benefits of proper warm up explained Exercise - 60-day Assessment Physician Prescribed Exercise Modalities: Treadmill, Rower and Schwinn Airdyne AD-7 Exercise - 90-day Assessment Physician Prescribed Exercise Modalities: Treadmill, Rower and Schwinn Airdyne AD-7 Exercise - Final/Discharge Physician Prescribed Exercise Modalities: Treadmill, Rower and Schwinn Airdyne AD-7 Nutrition - 30-Day Assessment Program Goals Nutrition Program Goals Patient has diagnosis of Hyperlipidemia (ICD E78)?: Yes Visit Date of Eval: 08/08/24 Session #:: 11 Cholesterol/Lipids (Other Core Measures) Determine presence & major risk factors that modify LDL goal: Hypertension or hypertensive medication, Low HDL cholesterol <40 mg/dL*, Family history of premature CHD in Male < 55 years: female <65 yearsFa and Age men > 45 years; women >/= 55 years Outcomes/Goals: Pt IDs own risk factors & lifestyle modifications by Session 10, Verbalizes symptoms of angina & response by session 3., Pt independently manages and Other Additional Outcomes/Goals: Intervention/Plan: Advocate for lipid panel cholesterol medication if applicable, Instruct on personal lipid levels & lipid goals/NCEP guidelines, Instruct on cholesterol and Other additional plan/int Referral to dietitian:: No (declines) 30-day Reassessments:: Progressing Reassessment Notes & Comments:: Risk factors and how to minimized risk factors reviewed with pt. Pt demonstrates understanding. Diabetes (Other Core Measures) Diabetes Type: 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 E11 Insulin dependent injection/pump?: No Non-Insulin Dependent?: Yes Do you monitor your blood sugar at home?: Yes Referral to Diabetic Clinic:: No 30-day Reassessments:: Met Reassessment Notes & Comments:: Pt is to attend nutrition class this sunday. Pt understands the benefits of BS control. Weight Mgt (Other Care) Height: 5 ft 6 in Weight:: 146 lb BMI: 23.6 Diagnosis Overweight/Obesity BMI> 30% ICD-10 E66: No Diagnosis High BMI/Morbid Obesity BMI> 35% ICD-10 Z68: No Outcomes/Goals: Pt sets, maintains & shows weight loss goal & trend during rehab and Other additional outcomes/goals Intervention/Plan: Instruct on ideal BMI & set weight loss goal w/patient, Assist pt to ID & incorporate diet changes for weight loss by S9, Refer to Structured Weight Loss program as appropriate, Encourage goal of using 250- 300dcal per session for weight loss and Other additional plan/interventions 30 day Reassessments:: Met Reassessment Notes & Comments:: pt is at a healthy weight Healthy Eating Habits Will attend diet classes:: Yes Outcomes/Goals:: Consume diet rich in vegs,fruits,whole grain/high fiber,fish,lean meat, Limit sat/trans fats,cholesterol & added salts & sugars and Other additional outcome/goals: Intervention/Plan:: Assess current eating habits and Other Additional plan/interventions 30-day Reassessments:: Progressing Reassessment Notes & Comments:: Pt is to attend nutrition class this sunday. Education Gave educational materials for:: Signs & symptoms of hypoglycemia, Signs & symptoms of hyperglycemia, Relate diabetes to coronary artery disease and Healthy eating Nutrition - 60-Day Assessment Weight Mgt (Other Care) Height: 5 ft 6 in Weight:: 146 lb BMI: 23.6 Core - 30-Day Assessment Visit Date of Eval: 08/08/24 Session #:: 11 Medication Compliance Preventative Medication(s):: Aspirin, Clopidogrel/P2Y12 inhibit, Statin/lipid and Beta radha H/O mental health issues: depression, anxiety, or addiction?: Yes Doesn?t believe in the benefits of treatment?: No Believes medications are unnecessary or harmful?: No Has a concern about medication side effects?: No Expresses concern over the cost of medications?: No Outcomes/Goals: Verbalizes medications,desired effect & common side effects @ DC, Pt self-reports following medication regimen, Keeps card in wallet w/medications listed by DC and Other additional outcome/goals: Interventions/plans: Instruct on medication effects & side effects, Review medication list w/patient every two weeks, Instruct importance of taking meds as ordered & assist problem solving and Other additional 30-day Reassessments:: Progressing Reassessment Notes & Comments:: Lisinopril increased to 20 mg 07/21/24 for increased BP's. Tobacco Use Tobacco Use: Non-smoker Hypertension Hypertension Diagnosis:: Hypertension ICD-10 I10 Resting Blood Pressure:: 126/70 [employer] Hypertension Guidelines Peak Exercise Blood Pressure:: 152/74 Outcomes/Goals: Able to verbalize/achieve optimal blood pressure <130/80, Incorporates diet changes & exercise for blood pressure control by DC and Other additional outcomes/goals Interventions/plan: Instruct on optimal blood pressure, hypertension & medications, Instruct on effects of sodium, alcohol, stress, exercise &hypertension and Other additional plan/interventions 30 day Reassessments:: Progressing Reassessment Notes & Comments:: Lisinopril increased to 20 mg 07/21/24 for increased BP's. BP's have been improving over the last 3 sessions. Tobacco Cessation Referral Smoking Cessation Referral:: No Individual Education/Counseling:: No Education Schedule Given:: Yes Psychosocial - 30-Day Assess VIsit Date of Eval: 08/08/24 Session #:: 11 History of previous Mental disease:: Yes History of Emotional Disorders: Anxious Target Goals Target Goals Psychosocial Test Tool Used:: Ferrans Power QOL Cardiac and PHQ-9 Questionnaire phq-9 Severity Referral to Behavioral Health PS - Interventions: Yes: Attend Stress Management Classes Outcomes/Goals: See list Psychosocial Outcomes/Goals:: ID's personal stressors & 2 strategies to manage stress by discharge and Other Additional outcome/goals: Intervention/Plan: See List Interventions/Plan:: Assess stressors,coping strategies & signs of derpression on admission, Instruct/assist pt to develop coping & personal stress Mgt strateg ies, Refer to Behavioral Health if appropriate, Refer to Physician if appropriate, Instruct patient to recognize signs & symptoms of depression, Instruct patient to recog and Other additional plan/intervention 30-day Reassessments: 30 day Reassessments:: Progressing Reassessment Notes & Comments:: Pt is to attend stress management class next week. Psychosocial - 60-Day Assess Target Goals Target Goals Referral to Behavioral Health PS - Interventions: Yes: Attend Stress Management Classes Outcomes/Goals: See list Psychosocial Outcomes/Goals:: ID's personal stressors & 2 strategies to manage stress by discharge and Other Additional outcome/goals: Psychosocial - 90-Day Assess Target Goals Target Goals Referral to Behavioral Health PS - Interventions: Yes: Attend Stress Management Classes Psychosocial - Final Assessmen Target Goals Target Goals Referral to Behavioral Health PS - Interventions: Yes: Attend Stress Management Classes Nutrition - 90-Day Assessment Weight Mgt (Other Care) Height: 5 ft 6 in Weight:: 146 lb BMI: 23.6 Nutrition - Final Assessment Weight Mgt (Other Care) Height: 5 ft 6 in Weight:: 146 lb BMI: 23.6
[2024-08-08 08:30] VITALS: BP 126/70; BMI 23.6
[2024-08-08 08:48] VITALS: BP 126/70
--- NOTE | 2024-09-05 08:57 | CR.ITP_ITS ---
Exercise - Initial Assessment Physician Prescribed Exercise Modalities: Treadmill, Rower and Schwinn dyne AD-7 Nutrition - Initial Assessment Weight Mgt (Other Care) Height: 5 ft 6 in Weight:: 141 lb 8 oz BMI: 22.8 Core - Initial Assessment Hypertension Resting Blood Pressure:: 130/68 [place] [employer] Hypertension Guidelines Psychosocial - Initial Assess Target Goals Target Goals Referral to Behavioral Health PS - Interventions: Yes: Attend Stress Management Classes Patient Health Questionnaire PHQ-9 Screening 60-Day Re-eval Assessment: 1. Little interest or pleasure in doing things: More than half the days 2. Feeling down, depressed, or hopeless: More than half the days 3. Trouble falling or staying asleep, or sleeping too much: Several days 4. Feeling tired or having little energy: Several days 5. Poor appetite or overeating: Not at all 6. Feeling bad about yourself -- or that you are a failure or have let yourself or your family down: Not at all 7. Trouble concentrating on things, such as reading the newspaper or watching television: More than half the days 8. Moving or speaking so slowly that other people could have noticed. Or the opposite - being so fidgety or restless that you have been moving around a lot more than usual: Not at all 9. Thoughts that you would be better off , or of hurting yourself in some way: Not at all How difficult have these problems made it for you to do your work, take care of things at home, or get along with other people?: Somewhat difficult Total Score: 8 Self-Efficacy 6-Item Scale 60-Day Re-eval Assessment: We would like to know how confident you are in doing certain activities. Please select your confidence level for: Fatigue Select Number: 5 Physical Discomfort or Pain Select Number: 5 Emotional Distress Select Number: 5 Other Symptoms or Health Problems Select Number: 5 Different Tasks and Activities Select Number: 5 Medication Select Number: 5 Total Score:: 5 Nutrition Survey Nutrition Survey Instructions Scoring Instructions Exercise - 30-day Assessment Physician Prescribed Exercise Modalities: Treadmill, Maryer and Deven Kahndyne AD-7 Exercise - 60-day Assessment Visit Date of Eval: 09/05/24 Session #:: 21 Physician Prescribed Exercise Modalities: Treadmill, Rower and Deven Georgene AD-7 Frequency: 3x/week for 12 weeks [36 sessions] Intensity: 60-80% of age predicted maximum heart rate reserve Duration: 30 - 45 minutes Current METSs:: 9 Target Heart Rate:: 91-114 Current RPE:: 12.5-13 Maximum Excercise HR:: 121 Resting Blood Pressure: 140/72 Maximum Exercise Blood Pressure: 140/72 EKG Type: SB to ST with T wave inversion, rare PVC/PAC Outcomes & Goals Goals:: Verbalizes understanding of THR, RPE & goal METS by session 6, Documents in home exercise log/reports 30 min aerobic 5 day/wk by DC, Demonstrates accurate pulse taking by DC and Other additional outcome/goals: see below Intervention & Plan Exercise Program Goals: Instruct on personal THR & RPE, Instruct on MET level & personal MET goal, Show patient to take own pulse /validate performance until accurate, Instruct on home exercise and Other additional plan/int 30-day Reassessments 30 day Reassessments:: Progressing Reassessment Notes & Comments:: THR explained in exercise class. Pt demonstrates understanding Physical Activity Home Exercise Physical Activity - Home Exercise: Safe Exercise, Warm-up, Self-monitoring, Cool-Down, Home Exercise > 30 min Daily and Sitting Time <3 hours/daily Outcomes & Goals Outcomes/Goals: Demonstrates correct Warm-up/exercise Cool-Down (S3) if = 2.5 METs, Verbalizes symptoms of exercise intolerance by Session 3 (S3), Demonstrate safe equipment use (S3) & follows exercise prescrition (6) and Other: See below Intervention & Plan Plan/Intervention: Instruct warm-up & cool-down if exercising at > 2 METs, Instruct on symptoms of exercise intolerance & actions to take, Instruct & monitor on saf, Assess intial functional capacity & safety risk and Other See below 30-day Reassessments 30 day Reassessments:: Progressing Reassessment Notes & Comments:: Cool down explained and demonstrated. Pt is able to return demonstration. Exercise - 90-day Assessment Physician Prescribed Exercise Modalities: Treadmill, Rower and Schwinn Airdyne AD-7 Exercise - Final/Discharge Physician Prescribed Exercise Modalities: Treadmill, Rower and Schwinn Airdyne AD-7 Nutrition - 30-Day Assessment Weight Mgt (Other Care) Height: 5 ft 6 in Weight:: 141 lb 8 oz BMI: 22.8 Nutrition - 60-Day Assessment Program Goals Nutrition Program Goals Patient has diagnosis of Hyperlipidemia (ICD E78)?: Yes Visit Date of Eval: 09/05/24 Session #:: 21 Cholesterol/Lipids (Other Core Measures) Determine presence & major risk factors that modify LDL goal: Hypertension or hypertensive medication, Low HDL cholesterol <40 mg/dL*, Family history of premature CHD in Male < 55 years: female <65 yearsFa and Age men > 45 years; women >/= 55 years Outcomes/Goals: Pt IDs own risk factors & lifestyle modifications by Session 10, Verbalizes symptoms of angina & response by session 3., Pt independently manages and Other Additional Outcomes/Goals: Intervention/Plan: Advocate for lipid panel cholesterol medication if applicable, Instruct on personal lipid levels & lipid goals/NCEP guidelines, Instruct on cholesterol and Other additional plan/int Diabetes (Other Core Measures) Diabetes Type: 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 E11 Insulin dependent injection/pump?: No Non-Insulin Dependent?: Yes Do you monitor your blood sugar at home?: Yes Referral to Diabetic Clinic:: No 30-day Reassessments:: Met Reassessment Notes & Comments:: Pt has attended nutrition class. Pt understands the benefits of BS control. Weight Mgt (Other Care) Height: 5 ft 6 in Weight:: 141 lb 8 oz BMI: 22.8 Diagnosis Overweight/Obesity BMI> 30% ICD-10 E66: No Diagnosis High BMI/Morbid Obesity BMI> 35% ICD-10 Z68: No Outcomes/Goals: Pt sets, maintains & shows weight loss goal & trend during rehab and Other additional outcomes/goals Intervention/Plan: Instruct on ideal BMI & set weight loss goal w/patient, Assist pt to ID & incorporate diet changes for weight loss by S9, Refer to Structured Weight Loss program as appropriate, Encourage goal of using 250- 300dcal per session for weight loss and Other additional plan/interventions 30 day Reassessments:: Met Reassessment Notes & Comments:: Pt is at a healthy weight. Pt has lost 4.5 lbs in the past month. Healthy Eating Habits Will attend diet classes:: Yes Outcomes/Goals:: Consume diet rich in vegs,fruits,whole grain/high fiber,fish,lean meat, Limit sat/trans fats,cholesterol & added salts & sugars and Other additional outcome/goals: Intervention/Plan:: Assess current eating habits and Other Additional plan/interventions 30-day Reassessments:: Met Reassessment Notes & Comments:: Pt has attended nutrition class and understands the benefits of a heart healthy diet. Education Gave educational materials for:: Signs & symptoms of hypoglycemia, Signs & symptoms of hyperglycemia, Relate diabetes to coronary artery disease and Healthy eating Core - Final Assessment Hypertension Resting Blood Pressure:: 130/68 [place] [employer] Hypertension Guidelines Core - 60-Day Assessment Visit Date of Eval: 09/05/24 Session #:: 21 Medication Compliance Preventative Medication(s):: Aspirin, Clopidogrel/P2Y12 inhibit, Statin/lipid and Beta radha H/O mental health issues: depression, anxiety, or addiction?: Yes Doesn?t believe in the benefits of treatment?: No Believes medications are unnecessary or harmful?: No Has a concern about medication side effects?: No Expresses concern over the cost of medications?: No Outcomes/Goals: Verbalizes medications,desired effect & common side effects @ DC, Pt self-reports following medication regimen, Keeps card in wallet w/medications listed by DC and Other additional outcome/goals: Interventions/plans: Instruct on medication effects & side effects, Review medication list w/patient every two weeks, Instruct importance of taking meds as ordered & assist problem solving and Other additional 30-day Reassessments:: Progressing Reassessment Notes & Comments:: Pt is taking meds as prescribed. BP's are slightly elevated. Will continue to monitor and send report to pt's physician if necessary. Tobacco Use Tobacco Use: Non-smoker Hypertension Hypertension Diagnosis:: Hypertension ICD-10 I10 Resting Blood Pressure:: 140/72 Resting Blood Pressure:: 130/68 [place] [employer] Hypertension Guidelines Peak Exercise Blood Pressure:: 140/72 Outcomes/Goals: Able to verbalize/achieve optimal blood pressure <130/80, Incorporates diet changes & exercise for blood pressure control by DC and Other additional outcomes/goals Interventions/plan: Instruct on optimal blood pressure, hypertension & medications, Instruct on effects of sodium, alcohol, stress, exercise &hypertension and Other additional plan/interventions 30 day Reassessments:: Progressing Reassessment Notes & Comments:: Pt is taking meds as prescribed. BP's are slightly elevated. Will continue to monitor and send report to pt's physician if necessary. Tobacco Cessation Referral Smoking Cessation Referral:: No Individual Education/Counseling:: No Education Schedule Given:: Yes Psychosocial - 30-Day Assess Target Goals Target Goals Referral to Behavioral Health PS - Interventions: Yes: Attend Stress Management Classes Outcomes/Goals: See list Psychosocial Outcomes/Goals:: ID's personal stressors & 2 strategies to manage stress by discharge and Other Additional outcome/goals: Psychosocial - 60-Day Assess VIsit Date of Eval: 09/05/24 Session #:: 21 History of previous Mental disease:: Yes History of Emotional Disorders: Anxious Target Goals Target Goals Psychosocial Test Tool Used:: [employer] Power QOL Cardiac and PHQ-9 Questionnaire phq-9 Severity Referral to Behavioral Health PS - Interventions: Yes: Attend Stress Management Classes Outcomes/Goals: See list Psychosocial Outcomes/Goals:: ID's personal stressors & 2 strategies to manage stress by discharge and Other Additional outcome/goals: Intervention/Plan: See List Interventions/Plan:: Assess stressors,coping strategies & signs of derpression on admission, Instruct/assist pt to develop coping & personal stress Mgt strategies, Refer to Behavioral Health if appropriate, Refer to Physician if appropriate, Instruct patient to recognize signs & symptoms of depression, Instruct patient to recog and Other additional plan/intervention 30-day Reassessments: 30 day Reassessments:: Progressing Reassessment Notes & Comments:: Pt has attended stress management class and is currently doing well. Psychosocial - 90-Day Assess Target Goals Target Goals Referral to Behavioral Health PS - Interventions: Yes: Attend Stress Management Classes Psychosocial - Final Assessmen Target Goals Target Goals Referral to Behavioral Health PS - Interventions: Yes: Attend Stress Management Classes Nutrition - 90-Day Assessment Weight Mgt (Other Care) Height: 5 ft 6 in Weight:: 141 lb 8 oz BMI: 22.8 Nutrition - Final Assessment Weight Mgt (Other Care) Height: 5 ft 6 in Weight:: 141 lb 8 oz BMI: 22.8
[2024-09-05 09:12] VITALS: BP 130/68; BP 140/72; BMI 22.8
== END 2024-09-06 23:59 ==
LOC: CR 10:15
PROVIDERS: PCP Family Medicine; Referring Provider Internal Medicine Cardiovascular Disease; Visit Provider Internal Medicine Cardiovascular Disease
DX: I25.10 Atherosclerotic heart disease of native coronary artery without angina pectoris (principal); Z98.61 Coronary angioplasty status; I21.4 Non-ST elevation (NSTEMI) myocardial infarction; Z95.1 Presence of aortocoronary bypass graft; E78.2 Mixed hyperlipidemia
CPT/HCPCS: 93798

== ENCOUNTER 2024-10-06 10:15 | Outpatient (RCR) | payer MEDICARE, OTHER, SELFPAY ==
[2024-09-07 00:28] VITALS: BP 126/70; BP 130/68; BP 140/72
--- NOTE | 2024-10-03 09:10 | CR.ITP_ITS ---
Exercise - Initial Assessment Physician Prescribed Exercise Modalities: Treadmill, Rower and Schwinn Airdyne AD-7 Nutrition - Initial Assessment Weight Mgt (Other Care) Height: 5 ft 6 in Weight:: 142 lb 8 oz BMI: 23.0 Psychosocial - Initial Assess Target Goals Target Goals Referral to Behavioral Health PS - Interventions: Yes: Attend Stress Management Classes Patient Health Questionnaire PHQ-9 Screening 90-Day Re-eval Assessment: 1. Little interest or pleasure in doing things: More than half the days 2. Feeling down, depressed, or hopeless: More than half the days 3. Trouble falling or staying asleep, or sleeping too much: Several days 4. Feeling tired or having little energy: Several days 5. Poor appetite or overeating: Not at all 6. Feeling bad about yourself -- or that you are a failure or have let yourself or your family down: Not at all 7. Trouble concentrating on things, such as reading the newspaper or watching television: More than half the days 8. Moving or speaking so slowly that other people could have noticed. Or the opposite - being so fidgety or restless that you have been moving around a lot more than usual: Not at all 9. Thoughts that you would be better off , or of hurting yourself in some way: Not at all How difficult have these problems made it for you to do your work, take care of things at home, or get along with other people?: Somewhat difficult Total Score: 8 Self-Efficacy 6-Item Scale 90-Day Re-eval Assessment: We would like to know how confident you are in doing certain activities. Please select your confidence level for: Fatigue Select Number: 5 Physical Discomfort or Pain Select Number: 5 Emotional Distress Select Number: 5 Other Symptoms or Health Problems Select Number: 5 Different Tasks and Activities Select Number: 5 Medication Select Number: 5 Total Score:: 5 Nutrition Survey Nutrition Survey Instructions Scoring Instructions Exercise - 30-day Assessment Physician Prescribed Exercise Modalities: Treadmill, Rower and Schwinn dyne AD-7 Exercise - 60-day Assessment Physician Prescribed Exercise Modalities: Treadmill, Rower and Schwinn Airdyne AD-7 Exercise - 90-day Assessment Visit Date of Eval: 10/03/24 Session #:: 31 Physician Prescribed Exercise Modalities: Treadmill, Rower and Schwinn Airdyne AD-7 Frequency: 3x/week for 12 weeks [36 sessions] Intensity: 60-80% of age predicted maximum heart rate reserve Duration: 30 - 45 minutes Current METSs:: 9 Target Heart Rate:: 91-121 Current RPE:: 13 Maximum Excercise HR:: 130 Resting Blood Pressure: 134/72 Maximum Exercise Blood Pressure: 140/80 EKG Type: SB to ST with Twave inversion, rare PAC Outcomes & Goals Goals:: Verbalizes understanding of THR, RPE & goal METS by session 6, Documents in home exercise log/reports 30 min aerobic 5 day/wk by DC, Demonstrates accurate pulse taking by DC and Other additional outcome/goals: see below Intervention & Plan Exercise Program Goals: Instruct on personal THR & RPE, Instruct on MET level & personal MET goal, Show patient to take own pulse /validate performance until accurate, Instruct on home exercise and Other additional plan/int Physical Activity Home Exercise Physical Activity - Home Exercise: Safe Exercise, Warm-up, Self-monitoring, Cool-Down, Home Exercise > 30 min Daily and Sitting Time <3 hours/daily Outcomes & Goals Outcomes/Goals: Demonstrates correct Warm-up/exercise Cool-Down (S3) if = 2.5 METs, Verbalizes symptoms of exercise intolerance by Session 3 (S3), Demonstrate safe equipment use (S3) & follows exercise prescrition (6) and Other: See below Intervention & Plan Plan/Intervention: Instruct warm-up & cool-down if exercising at > 2 METs, Instruct on symptoms of exercise intolerance & actions to take, Instruct & monitor on saf, Assess intial functional capacity & safety risk and Other See below 30-day Reassessments 30 day Reassessments:: Met Reassessment Notes & Comments:: Pt is ready for home exercise. Pt understands the importance of warm up and cool down. Pt understands how to exercise safely. Pt will be given exercise workloads and options for exercise upon graduation. Exercise - Final/Discharge Physician Prescribed Exercise Modalities: Treadmill, Rower and Schwinn dyne AD-7 Nutrition - 30-Day Assessment Weight Mgt (Other Care) Height: 5 ft 6 in Weight:: 142 lb 8 oz BMI: 23.0 Nutrition - 60-Day Assessment Weight Mgt (Other Care) Height: 5 ft 6 in Weight:: 142 lb 8 oz BMI: 23.0 Core - 30-Day Assessment Hypertension [employer] Hypertension Guidelines Reassessment Notes & Comments:: Pt is taking meds as prescribed. Low sodium diet encouraged due to elevated BP's. Core - Final Assessment Hypertension [employer] Hypertension Guidelines Reassessment Notes & Comments:: Pt is taking meds as prescribed. Low sodium diet encouraged due to elevated BP's. Core - 90 Day Assessment Visit Date of Eval: 10/03/24 Session #:: 31 Medication Compliance Preventative Medication(s):: Aspirin, Clopidogrel/P2Y12 inhibit, Statin/lipid and Beta radha H/O mental health issues: depression, anxiety, or addiction?: Yes Doesn?t believe in the benefits of treatment?: No Believes medications are unnecessary or harmful?: No Has a concern about medication side effects?: No Expresses concern over the cost of medications?: No Outcomes/Goals: Verbalizes medications,desired effect & common side effects @ DC, Pt self-reports following medication regimen, Keeps card in wallet w/medications listed by DC and Other additional outcome/goals: Interventions/plans: Instruct on medication effects & side effects, Review medication list w/patient every two weeks, Instruct importance of taking meds as ordered & assist problem solving and Other additional Tobacco Use Tobacco Use: Non-smoker Hypertension Hypertension Diagnosis:: Hypertension ICD-10 I10 Resting Blood Pressure:: 134/72 [employer] Hypertension Guidelines Peak Exercise Blood Pressure:: 140/80 Outcomes/Goals: Able to verbalize/achieve optimal blood pressure <130/80, Incorporates diet changes & exercise for blood pressure control by DC and Other additional outcomes/goals Interventions/plan: Instruct on optimal blood pressure, hypertension & medications, Instruct on effects of sodium, alcohol, stress, exercise &hypertension and Other additional plan/interventions 30 day Reassessments:: Progressing Reassessment Notes & Comments:: Pt is taking meds as prescribed. Low sodium diet encouraged due to elevated BP's. Tobacco Cessation Referral Smoking Cessation Referral:: No Individual Education/Counseling:: No Education Schedule Given:: Yes Psychosocial - 30-Day Assess Target Goals Target Goals Referral to Behavioral Health PS - Interventions: Yes: Attend Stress Management Classes Psychosocial - 60-Day Assess Target Goals Target Goals Referral to Behavioral Health PS - Interventions: Yes: Attend Stress Management Classes Psychosocial - -Day Assess VIsit Date of Eval: 10/03/24 Session #:: 31 History of previous Mental disease:: Yes History of Emotional Disorders: Anxious Target Goals Target Goals Psychosocial Test Tool Used:: [employer] QOL Cardiac and PHQ-9 Questionnaire phq-9 Severity Referral to Behavioral Health PS - Interventions: Yes: Attend Stress Management Classes Outcomes/Goals: See list Psychosocial Outcomes/Goals:: ID's personal stressors & 2 strategies to manage stress by discharge and Other Additional outcome/goals: Intervention/Plan: See List Interventions/Plan:: Assess stressors,coping strategies & signs of derpression on admission, Instruct/assist pt to develop coping & personal stress Mgt strategies, Refer to Behavioral Health if appropriate, Refer to Physician if appropriate, Instruct patient to recognize signs & symptoms of depression, Instruct patient to recog and Other additional plan/intervention 30-day Reassessments: 30 day Reassessments:: Progressing Reassessment Notes & Comments:: Pt has attended stress management class and is doing well. Psychosocial - Final Assessmen Target Goals Target Goals Referral to Behavioral Health PS - Interventions: Yes: Attend Stress Management Classes Nutrition - 90-Day Assessment Program Goals Nutrition Program Goals Patient has diagnosis of Hyperlipidemia (ICD E78)?: Yes Visit Date of Eval: 10/03/24 Session #:: 31 Cholesterol/Lipids (Other Core Measures) Determine presence & major risk factors that modify LDL goal: Hypertension or hypertensive medication, Low HDL cholesterol <40 mg/dL*, Family history of premature CHD in Male < 55 years: female <65 yearsFa and Age men > 45 years; women >/= 55 years Outcomes/Goals: Pt IDs own risk factors & lifestyle modifications by Session 10, Verbalizes symptoms of angina & response by session 3., Pt independently manages and Other Additional Outcomes/Goals: Intervention/Plan: Advocate for lipid panel cholesterol medication if applicable, Instruct on personal lipid levels & lipid goals/NCEP guidelines, Instruct on cholesterol and Other additional plan/int Diabetes (Other Core Measures) Diabetes Type: 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 E11 Insulin dependent injection/pump?: No Non-Insulin Dependent?: Yes Do you monitor your blood sugar at home?: Yes Referral to Diabetic Clinic:: No Weight Mgt (Other Care) Height: 5 ft 6 in Weight:: 142 lb 8 oz BMI: 23.0 Diagnosis Overweight/Obesity BMI> 30% ICD-10 E66: No Diagnosis High BMI/Morbid Obesity BMI> 35% ICD-10 Z68: No Outcomes/Goals: Pt sets, maintains & shows weight loss goal & trend during rehab and Other additional outcomes/goals Intervention/Plan: Instruct on ideal BMI & set weight loss goal w/patient, Assist pt to ID & incorporate diet changes for weight loss by S9, Refer to Structured Weight Loss program as appropriate, Encourage goal of using 250- 300dcal per session for weight loss and Other additional plan/interventions Healthy Eating Habits Will attend diet classes:: Yes Outcomes/Goals:: Consume diet rich in vegs,fruits,whole grain/high fiber,fish,lean meat, Limit sat/trans fats,cholesterol & added salts & sugars and Other additional outcome/goals: Intervention/Plan:: Assess current eating habits and Other Additional plan/interventions 30-day Reassessments:: Met Reassessment Notes & Comments:: david is at a healthy weight and understands the importance of a heart healthy diet. Education Gave educational materials for:: Signs & symptoms of hypoglycemia, Signs & symptoms of hyperglycemia, Relate diabetes to coronary artery disease and Healthy eating Nutrition - Final Assessment Weight Mgt (Other Care) Height: 5 ft 6 in Weight:: 142 lb 8 oz BMI: 23.0
[2024-10-03 09:14] VITALS: BP 134/72
[2024-10-03 09:35] VITALS: BP 134/72; BMI 23.0
== END 2024-10-07 23:59 ==
LOC: CR 10:15
PROVIDERS: PCP Family Medicine; Referring Provider Internal Medicine Cardiovascular Disease; Visit Provider Internal Medicine Cardiovascular Disease
DX: I25.10 Atherosclerotic heart disease of native coronary artery without angina pectoris (principal); Z98.61 Coronary angioplasty status; I21.4 Non-ST elevation (NSTEMI) myocardial infarction; Z95.1 Presence of aortocoronary bypass graft; E78.2 Mixed hyperlipidemia
CPT/HCPCS: 93798

== ENCOUNTER 2024-10-17 10:15 | Outpatient (RCR) | payer MEDICARE, OTHER, SELFPAY ==
[2024-10-03 09:35] VITALS: BMI 23.0
[2024-10-08 00:41] VITALS: BP 126/70; BP 130/68; BP 134/72; BP 140/72
== END 2024-11-07 23:59 ==
LOC: CR 10:15
PROVIDERS: PCP Family Medicine; Referring Provider Internal Medicine Cardiovascular Disease; Visit Provider Internal Medicine Cardiovascular Disease
DX: I25.10 Atherosclerotic heart disease of native coronary artery without angina pectoris (principal); Z98.61 Coronary angioplasty status; I21.4 Non-ST elevation (NSTEMI) myocardial infarction; Z95.1 Presence of aortocoronary bypass graft; E78.2 Mixed hyperlipidemia

== ENCOUNTER → 2024-10-30 | Outpatient (CLI) | payer MEDICARE, OTHER, SELFPAY ==
[2024-10-03 09:35] VITALS: BMI 23.0
[2024-10-30 10:43] LABS: Hemoglobin A1c 6.2 % (3.8-5.6)
[2024-10-30 11:02] LABS: Anion Gap 7 (5-15); BUN 12 mg/dL (7-18); BUN/Creat Ratio 16.6 RATIO (10-20); Calcium,Total 9.4 mg/dL (8.5-10.1); Chloride 103 mmol/L (98-107); Cholesterol 124 mg/dL (200); Creatinine, Serum 0.72 mg/dL (0.70-1.30); EST Glomerular Filtration Rate 114 mL/min (>60); Est Glom Filt Rate - Afr Amer 138 mL/min (>60); Glucose 139 mg/dL (74-106); High Density Lipoprotein 63 mg/dL; Potassium 4.1 mmol/L (3.5-5.1); Sodium Level 138 mmol/L (136-145); Triglycerides 55 mg/dL; Very Low Density Lipoprotein 11 mg/dL (5-40)
== END | disposition home or self-care (01) ==
LOC: MTLAB 08:15
PROVIDERS: PCP Family Medicine; Referring Provider Family Medicine; Visit Provider Family Medicine
DX: E11.65 Type 2 diabetes mellitus with hyperglycemia (principal); E78.5 Hyperlipidemia, unspecified; I10 Essential (primary) hypertension
CPT/HCPCS: 36415; 80048; 80061; 83036

== ENCOUNTER → 2025-01-29 | Outpatient (CLI) | payer MEDICARE, OTHER, SELFPAY ==
[2024-10-03 09:35] VITALS: BMI 23.0
[2025-01-29 13:35] LABS: Vitamin B12 1409 pg/mL (180-914)
[2025-01-29 14:05] LABS: FOLATES,SERUM (FOLIC ACID) > 40.00 ng/mL (4.60-34.80)
== END | disposition home or self-care (01) ==
LOC: MTLAB 07:11
PROVIDERS: PCP Family Medicine
DX: E11.65 Type 2 diabetes mellitus with hyperglycemia (principal); R53.81 Other malaise; R53.83 Other fatigue
CPT/HCPCS: 36415; 82607; 82746; 84443

== ENCOUNTER → 2025-02-05 | Outpatient (CLI) | payer MEDICARE, OTHER, SELFPAY ==
[2024-10-03 09:35] VITALS: BMI 23.0
[2025-02-05 13:09] LABS: Microalbumin,Random Urine < 12.0 mg/L (NO RANGE EST.); Microalbumin:Creatinine Ratio UNABLE TO CALCULATE mg/g CRE
[2025-02-05 13:22] LABS: ALB/GLOB Ratio 2.1 RATIO (0.9-2.4); AST(SGOT) 25 U/L (<=37); Alanine Aminotransfer ALT/SGPT 35 U/L (<=46); Albumin, Serum 4.6 g/dL (3.4-4.8); Alkaline Phosphatase 82 U/L (40-129); Anion Gap 12 (5-15); BUN 13 mg/dL (4-19); Calcium,Total 9.6 mg/dL (7.6-11.0); Carbon Dioxide 24.8 mmol/L (21.0-32.0); Chloride 102 mmol/L (98-108); Creatinine, Serum 0.74 mg/dL (0.70-1.20); EST Glomerular Filtration Rate 98 (>60); Globulin 2.2 g/dL (2.2-4.2); Glucose 108 mg/dL (70-99); Potassium 4.1 mmol/L (3.3-5.1); Protein, Total 6.8 g/dL (5.9-8.4); Sodium Level 139 mmol/L (133-145); Total Bilirubin 0.34 mg/dL (0.00-1.30)
== END | disposition home or self-care (01) ==
LOC: MTLAB 10:23
PROVIDERS: PCP Family Medicine; Referring Provider Family Medicine; Visit Provider Family Medicine
DX: E11.9 Type 2 diabetes mellitus without complications (principal)
CPT/HCPCS: 36415; 80053; 82043; 82570

== ENCOUNTER → 2025-06-09 | Outpatient (CLI) | payer MEDICARE, OTHER, SELFPAY ==
[2024-10-03 09:35] VITALS: BMI 23.0
== END | disposition home or self-care (01) ==
LOC: MTLAB 07:35
PROVIDERS: PCP Family Medicine; Referring Provider Internal Medicine Endocrinology, Diabetes & Metabolism; Visit Provider Internal Medicine Endocrinology, Diabetes & Metabolism
DX: E11.65 Type 2 diabetes mellitus with hyperglycemia (principal)
CPT/HCPCS: 36415; 83036

== ENCOUNTER → 2025-06-11 | Outpatient (CLI) | payer MEDICARE, OTHER, SELFPAY ==
[2024-10-03 09:35] VITALS: BMI 23.0
== END | disposition home or self-care (01) ==
LOC: LABSPEC 11:03
PROVIDERS: PCP Family Medicine; Referring Provider Family Medicine; Visit Provider Family Medicine
DX: R19.7 Diarrhea, unspecified (principal)
CPT/HCPCS: 82271; 82274; 87177; 87209; 87493

== ENCOUNTER → 2025-06-24 | Outpatient (CLI) | payer MEDICARE, OTHER, SELFPAY ==
[2024-10-03 09:35] VITALS: BMI 23.0
[2025-06-24 15:46] LABS: CRP < 3.00 mg/L (0.0-3.0)
[2025-06-26 15:08] LABS: Immunoglobulin A 128 mg/dL (61-437)
== END | disposition home or self-care (01) ==
LOC: MTLAB 11:38
PROVIDERS: PCP Family Medicine; Referring Provider Internal Medicine Gastroenterology; Visit Provider Internal Medicine Gastroenterology
DX: R19.7 Diarrhea, unspecified (principal)
CPT/HCPCS: 36415; 82784; 83516; 86140; 86255

== ENCOUNTER → 2025-08-25 | Outpatient (CLI) | payer MEDICARE, OTHER, SELFPAY ==
[2024-10-03 09:35] VITALS: BMI 23.0
--- OUTSIDE RECORDS SUMMARY | 2025-08-25 08:11 | XMS RPT_ITS | CCD ---
Author Organization [facility] CliniSyil Care Team Providers Care Chemical Instrumentation Officer Name Role Phone Libby Nichols MD Unavailable Justin Leonard Unavailable Missy [place] S Unavailable Libby Gomez DO Primary Care Provider Dr. Libby Gomez Referring Provider [phone] Dr. Bernardo Louis Attending Provider Dr. Juvencio Glez Primary Care Provider Roof BOOTH OPERATOR, BOOTH OPERATOR-C Libby Manzanares Attending Provider Libby Nichols MD Unavailable Justin Leonard Unavailable Missy [place] S Unavailable Libby Gomez DO Primary Care Provider [phone] FARHAN LEMOS Referring Unavailable FARHAN LEMOS Attending Unavailable LIBBY GOMEZ Primary Care Unavailable Missy, Bernardo S Unavailable Justin Leonard OD Unavailable Bernardo Louis MD S Unavailable Juvencio Glez MD Primary Care Provider Juvencio Glez MD Primary Care Provider Juvencio Glez MD Primary Care Provider Dr. Juvencio lGez MD Primary Care Provider [phone] Dr. Suzette Hankins MD Attending Provider Dr. Suzette Hankins MD Referring Provider Jaelyn ELI, Dr. Henning Attending Provider Jaelyn ELI, Dr. Henning Referring Provider ANA HUSSEIN Other Provider Roof BOOTH OPERATOR-C, Libby Manzanares Attending Provider ANA HUSSEIN Attending Provider [phone] ANA HUSSEIN Referring Provider Jaelyn ELI, Dr. Henning Primary Care Provider [phone] Cr ELI, Dr. Bradford Attending Provider Cr ELI, Dr. Bradford Referring Provider Jaelyn ELI, Dr. Henning Primary Care Provider [phone] Juan BOOTH OPERATOR-C, Ana Attending Provider Juan BOOTH OPERATOR-C, Ana Referring Provider Jaelyn ELI, Dr. Henning Attending Provider Jaelyn ELI, Dr. Henning Referring Provider Jaelyn ELI, Dr. Henning Primary Care Physician [phone] Juan BOOTH OPERATOR-C, Ana Attending Physician [phone] Jaelyn ELI, Dr. Henning Attending Physician Kirsten ELI, Dr. Braun Attending Physician Kirsten ELI, Dr. Braun Referring Provider Aleks BOOTH OPERATOR-C, Libby Manzanares Attending Physician [phone] Sneha Crockett Referring Unavailabl Sneha [place] Attending Unavailabl e Juvencio Glez Primary Care Unavailable Juvencio Glez Primary Care Unavailable Juvencio Glez Attending Unavailable Juvencio Glez Referring Unavailable CrSuzette sanchez Attending Unavailable Suzette Hankins Referring Unavailable Jaelyn, Juvencio Primary Care Unavailable GlezJuvencio loyola Referring Unavailable Roof BOOTH OPERATOR, Libby Manzanares Attending Unavailable Glez, Juvencio Primary Care Unavailable Roof BOOTH OPERATOR, Libby Manzanares Attending Unavailable Glez, Juvencio Primary Care Unavailable GlezJuvencio loyola Referring Unavailable Roof BOOTH OPERATOR, Libby Manzanares Attending Unavailable Glez, Juvencio Primary Care Unavailable Glez, Juvencio Referring Unavailable Juan, Ana Referring Unavailable Juan, Ana Attending Unavailable Glez, Juvencio Primary Care Unavailable Glez, Juvencio Referring Unavailable Glez, Juvencio Primary Care Unavailable Glez, Juvencio Attending Unavailable Glez, Juvencio Primary Care Unavailable Jabour, Kade Referring Unavailable Jabour, Kade Attending Unavailable Glez, Juvencio Attending Unavailable Sneha Crockett Consulting Unavailabl e Glez, Juvencio Primary Care Unavailable Glez, Juvencio Referring Unavailable Cr, Suzette Attending Unavailable Cr, Suzette Referring Unavailable Glez, Juvencio Primary Care Unavailable Cr, Suzette Attending Unavailable Cr, Suzette Referring Unavailable Glez, Juvencio Primary Care Unavailable Cr, Suzette Attending Unavailable Cr, Suzette Referring Unavailable Glez, Juvencio Primary Care Unavailable Cr, Suzette Attending Unavailable Cr, Suzette Referring Unavailable Glez, Juvencio Primary Care Unavailable Cr, Suzette Attending Unavailable Cr, Suzette Referring Unavailable Glez, Juvencio Primary Care Unavailable Cr, Suzette Attending Unavailable Cr, Suzette Referring Unavailable Glez, Juvencio Primary Care Unavailable ANA HUSSEIN Attending Unavaila ble JUAN, ANA KIRKPATRICK Referring Unavaila ble GLEZ, JUVENCIO R Primary Care Unavailable JUAN, ANA KIRKPATRICK Referring Unavaila ble GLEZ, JUVENCIO R Primary Care Unavailable JUAN, ANA KIRKPATRICK Attending Unavaila ble JUAN, ANA KIRKPATRICK Referring Unavaila ble GLEZ, JUVENCIO R Primary Care Unavailable ANA HUSSEIN Attending Unavaila ble GLEZ, JUVENCIO R Primary Care Unavailable JUAN, ANA KIRKPATRICK Attending Unavaila ble Medications Current Medications Medication Drug Class(es) Dates Sig (Normalized) Sig (Original) aspirin 81 mg delayed release oral tablet (20 sources) Platelet Aggregation Inhibitor, Nonsteroidal Anti-inflammatory Drug Start: 01-15-2018 take 1 tablet by mouth once daily Aspirin (Adult Aspirin Regimen) 81 mg tablet,delayed release (DR/EC) Active 81 mg PO daily 0 January 15, 2018 12:00am [facility] Complies with drug therapy take 81 mg by mouth once daily A SPIRIN ORAL Take 81 mg by mouth once daily. Active Comment on above: Take 81 mg by mouth once daily. Blood-Glucose Meter (ONETOUCH VERIO METER) (20 sources) Start: 06-02-2024 Blood-Glucose Meter (ONETOUCH VERIO METER) Indications: Type 2 diabetes mellitus with hyperglycemia, without long-term current use of insulin (HCC) For monitoring sugars 1x/day 1 Each 06/02/2024 Active Start: 05-30-2023 End: 06-02-2024 Blood-Glucose Meter (ONETOUC H VERIO METER) Indications: Type 2 diabetes mellitus with hyperglycemia, without long-term current use of insulin (HCC) For monitoring sugars 1x/day 1 Each 05/30/2023 06/02/2024 Discontinued Start: 05-30-2023 Blood-Glucose Meter (ONETOUCH VERIO METER) Indications: Type 2 diabetes mellitus with hyperglycemia, without long-term current use of insulin (HCC) For monitoring sugars 1x/day 1 Each 05/30/2023 Active Comment on above: For monitoring sugar s 1x/day DOCOSAHEXANOIC ACID/EPA (FIS H OIL ORAL) (20 sources) DOCOSAHEXANOIC A TASHIA/EPA (FISH OIL ORAL) Take by mouth. Active DOCOSAHEXANOIC A TASHIA/EPA (FISH OIL ORAL) Take by mouth. 0 Active Comment on above: Take by mouth. lisinopril 20 mg oral tablet (20 sources) Angiotensin Converting Enzyme Inhibitor Start: 07-28-2024 take 1 tablet by mouth once daily Lisinopril 20 mg tablet Active 20 mg PO daily July 28, 2024 2:20pm Complies with drug therapy Start: 07-18-2024 End: 07-28-2024 take 10 mg by mouth once daily Lisinopril 20 mg tablet Discontinued 10 mg PO daily July 18, 2024 12:00am July 28, 2024 2:20pm Start: 06-28-2024 End: 07-18-2024 take 1 tablet by mouth once daily Lisinopril 5 mg Tablet Discontinued 5 mg PO DAILY 30 30 2 June 28, 2024 12:00am July 18, 2024 11:39am Start: 06-26-2024 End: 06-28-2024 take 1 tablet by mouth once daily Lisinopril 20 mg tablet Discontinued 20 mg PO DAILY June 26, 2024 12:00am June 28, 2024 12:18pm Start: 10-23-2023 End: 06-26-2024 take 2 tablets by mouth once daily Lisinopril 10 mg tablet Discontinued 20 mg PO DAILY October 23, 2023 11:51am June 26, 2024 1:51pm Start: 06-21-2023 End: 06-02-2024 lisinopril (ZESTRIL) 20 mg t ablet 06/21/2023 06/02/2024 Discontinued Start: 10-20-2021 End: 12-16-2024 take 1 tablet by mouth once daily Lisinopril 10 mg tablet Discontinued 10 mg PO DAILY October 20, 2021 1:00am October 23, 2023 11:53am Start: 09-19-2021 End: 02-17-2022 take 1 tablet by mouth once daily lisinopril (ZESTRIL, PRINIVIL) 5 mg tablet Take 5 mg by mouth once daily. 0 09/19/2021 02/17/2022 Discontinued (Discontinued by another Health Care Provider) Comment on above: Take 5 mg by mouth o nce daily. Take 10 mg by mouth once daily. mecobalamin/L-mefolate/B6 phos (METANX ORAL) (8 sources) mecobalamin/L-me folate /B6 phos (METANX ORAL) Take by mouth. Active 24 hr metFORMIN hydrochloride 500 mg extended release oral tablet (20 sources) Biguanide Start: 01-27-2025 metFORMIN ER (GLUCOPHAGE XR) 500 mg 24 hr tablet Indications: Type 2 diabetes mellitus with hyperglycemia, without long-term current use of insulin (HCC) TWO TABLETS BEFORE BREAKFAST AND BEFORE SUPPER 360 tablet 3 01/27/2025 Active Start: 11-15-2021 End: 12-16-2024 metFORMIN ER (GLUCOPHAGE XR) 500 mg 24 hr tablet Indications: Type 2 diabetes mellitus with hyperglycemia, without long-term current use of insulin (HCC) TWO TABLETS BEFORE BREAKFAST AND BEFORE SUPPER 360 tablet 3 12/16/2024 Active Start: 01-15-2018 Metformin 500 mg tablet extended release 24 hr Active 1000 mg PO TWICE A DAY 360 90 0 January 15, 2018 12:00am diabetes Complies with drug therapy Start: 01-15-2018 take 1000 mg by mout h twice daily Metformin Active 1000 MG PO TWICE A DAY 360 90 January 15, 2018 12:00am Comment on above: TAKE 2 TABLETS BEFOR E BREAKFAST AND BEFORE SUPPER TAKE 2 TABLETS BEFOR E BREAKFAST AND SUPPER Multivitamin preparation (4 sources) Start: 8 take 1 tablet by mouth once daily Multivitamin Active 1 TABLET PO daily January 15, 2018 11:01am Start: 01-15-2018 take 1 tablet by edmond th once daily Multivitamin Active 1 TABLET PO daily January 14, 2018 11:00pm Start: 01-15-2018 take 1 tablet by edmond th once daily Multivitamin Active 1 TABLET PO daily January 15, 2018 12:00am MULTIVITAMIN TAB (20 sources) Start: 02-05-2008 MULTIVITAMIN T AB Take one(1) tablet daily. 0 02/05/2008 Active Comment on above: Take one(1) tablet d aily. Multivitamin tablet (6 sources) Start: 01-15-2018 Multivitamin t ablet Active 1 {tbl} PO daily January 15, 2018 12:00am supplement Complies with drug therapy Start: 01-15-2018 Start: 01-15-2018 Multivitamin t ablet Active 1 {tbl} PO daily January 15, 2018 12:00am supplement Start: 01-15-2018 Multivitamin t ablet Active 1 {tbl} PO daily January 15, 2018 12:00am [place]-3 Fatty Acids (Fish Oil Concentrate) 1,000 mg capsule (10 sources) Start: 01-15-2018 take 1 capsule by mouth once daily [place]-3 Fatty Acids (Fish Oil Concentrate) 1,000 mg capsule Active 1000 MG PO daily January 15, 2018 11:00am Start: 01-15-2018 End: 06-26-2024 take 1 capsule by mouth once daily [place]-3 Fatty Acids (Fish Oil Concentrate) 1,000 mg capsule Discontinued 1000 mg PO daily January 15, 2018 12:00am June 26, 2024 1:51pm Start: 01-15-2018 take 1 capsule by mo [facility] once daily [place]-3 Fatty Acids (Fish Oil Concentrate) 1,000 mg capsule Active 1000 MG PO daily January 14, 2018 11:00pm Start: 01-15-2018 take 1 capsule by mo uth once daily [place]-3 Fatty Acids (Fish Oil Concentrate) 1,000 mg capsule Active 1000 MG PO daily January 15, 2018 12:00am Completed/Discontinued Medications Medication Drug Class(es) Dates Sig (Normalized) Sig (Original) acetaminophen 325 mg oral tablet (20 sources) Start: 03-21-2018 End: 06-26-2024 take 1-2 tablets by mouth every six hours as needed Acetaminophen 325 mg tablet Discontinued 325 mg PO .COMPLEX as needed for Pain March 29, 2018 8:40am June 26, 2024 1:51pm 325 mg PO 1-2 tablets q 6 hours prn PRN acetaminophen 325 mg / HYDROcodone bitartrate 5 mg oral tablet (10 sources) Opioid Agonist Start: 03-29-2018 End: 10-17-2018 Hydrocodone-Acetami nophen 5-325 mg tablet Discontinued 1 {tbl} PO EVERY 6 HOURS as needed 0 March 29, 2018 12:00am October 17, 2018 11:52am Start: 03-29-2018 End: 10-17-2018 take 1 tablet by mouth every six hours Hydrocodone-Acetaminophen Discontinued 1 TABLET PO EVERY 6 HOURS March 29, 2018 12:00am October 17, 2018 11:52am atorvastatin 80 mg oral tablet (20 sources) HMG-CoA Reductase Inhibitor Start: 10-17-2024 End: 10-20-2024 take 1 tablet by mouth at bedtime Atorvastatin 80 mg tablet Discontinued 80 mg PO AT BEDTIME 90 3 October 17, 2024 9:10am October 20, 2024 3:58pm cholesterol Start: 10-05-2019 End: 12-16-2024 take 1 tablet by mouth at bedtime Atorvastatin 40 mg tablet Discontinued 40 mg PO AT BEDTIME October 16, 2019 1:00am October 17, 2024 9:08am cholesterol Start: 03-21-2018 End: 10-16-2019 take 1 tablet by mouth at bedtime Atorvastatin 80 mg tablet Discontinued 80 mg PO AT BEDTIME 90 3 January 29, 2019 11:04am October 16, 2019 12:17pm bisacodyl 10 mg rectal suppository (10 sources) Stimulant Laxative Start: 03-29-2018 End: 10-17-2018 Bisacodyl (Dulcolax (Bisacodyl)) 10 mg suppository Discontinued 10 mg RC daily as needed March 29, 2018 12:00am October 17, 2018 11:52am Blood-Glucose Meter (TRUE METRIX AIR GLUCOSE METER) monitoring kit (2 sources) Start: 05-28-2023 Blood-Glucose Meter (TRUE METRIX AIR GLUCOSE METER) monitoring kit Indications: Type 2 diabetes mellitus with hyperglycemia, without long-term current use of insulin (HCC) For monitoring sugars 1x/day 1 Each 1 05/28/2023 Active Comment on above: For monitoring sugar s 1x/day Blood-Glucose Meter monitoring kit (15 sources) Start: 08-20-2020 End: 05-28-2023 Blood-Glucose Meter monitoring kit Indications: Type 2 diabetes mellitus with hyperglycemia, without long-term current use of insulin (HCC) For monitoring sugars 1x/day 1 Each 1 08/20/2020 05/28/2023 Discontinued Start: 08-20-2020 Blood-Glucose Meter monitoring kit Indications: Type 2 diabetes mellitus with hyperglycemia, without long-term current use of insulin (HCC) For monitoring sugars 1x/day 1 Each 1 08/20/2020 Active Comment on above: For monitoring sugar s 1x/day clopidogrel 75 mg oral tablet (20 sources) [id number] Platelet Inhibitor Start: End: take 1 tablet by mouth once daily Clopidogrel 75 mg Tablet Discontinued 75 mg PO DAILY 90 90 0 June 28, 2024 12:00am July 09, 2025 10:52am Start: 03-21-2018 End: 10-17-2018 take 1 tablet by mouth once daily Clopidogrel 75 MG tablet Discontinued 75 mg PO DAILY March 21, 2018 12:00am October 17, 2018 11:51am empagliflozin 10 mg oral tablet (20 sources) Sodium-Glucose Cotransporter 2 Inhibitor Start: 06-25-2023 End: 10-23-2023 Empagliflozin (Jardiance) 10 mg tablet Discontinued mg PO October 23, 2023 1:00am October 23, 2023 12:14pm [id number]- Algal Oil (Metanx (Algal Oil)) 3 mg-35 mg-2 mg -90.314 mg capsule (6 sources) Start: 07-28-2024 End: 07-09-2025 take 1 capsule by mouth twice daily Vcyhulbnb-I7-Loo86 -Algal Oil (Metanx (Algal Oil)) 3 mg-35 mg-2 mg -90.314 mg capsule Discontinued 1 NMA PO TWICE A DAY 180 July 28, 2024 12:00am July 09, 2025 10:52am Start: 07-28-2024 take 1 capsule by mo ut twice daily Start: 07-28-2024 take 1 capsule by mo ut twice daily Fovojavbj-S0-Pag20-Algal Oil (Metanx (Algal Oil)) 3 mg-35 mg-2 mg -90.314 mg capsule Active 1 NMA PO TWICE A DAY 180 3 July 28, 2024 12:00am Start: 07-28-2024 take 1 capsule by mo uth twice daily Eigxsehay-Z3-Tkg68-Algal Oil (Metanx (Algal Oil)) 3 mg-35 mg-2 mg -90.314 mg capsule Active 1 NMA PO TWICE A DAY 180 July 28, 2024 12:00am melatonin 3 mg oral tablet (10 sources) Start: 03-29-2018 End: 10-17-2018 take 1 tablet by mouth at bedtime as needed Melatonin 3 mg tablet Discontinued 3 mg PO BEDTIME as needed March 29, 2018 12:00am October 17, 2018 11:52am metoprolol tartrate 25 mg oral tablet (20 sources) beta-Adrenergic Marita Start: 10-19-2020 End: 07-09-2025 Metoprolol Tartrate 25 mg tablet Discontinued 12.5 mg PO TWICE A DAY October 19, 2020 11:51am July 09, 2025 11:44am heart/BP Start: 10-19-2020 take 12.5 mg by mout h twice daily Metoprolol Tartrate Active 12.5 MG PO TWICE A DAY October 19, 2020 11:51am Start: 07-22-2018 End: 10-19-2020 take 1 tablet by mouth twice daily Metoprolol Tartrate 25 mg tablet Discontinued 25 mg PO TWICE A DAY 180 3 August 15, 2019 6:03pm October 19, 2020 11:52am Start: 03-21-2018 End: 07-22-2018 take 1 tablet by mouth twice daily Metoprolol Tartrate 50 MG tablet Discontinued 50 mg PO TWICE A DAY March 21, 2018 12:00am July 22, 2018 12:42pm METOPROLOL TARTR ATE ORAL Take by mouth. Active METOPROLOL TARTR ATE ORAL Take by mouth. 0 Active Comment on above: Take by mouth. [place] 1-Tni-Gxm-Fish Oil (Fish Oil) 1,200 (144-216) mg capsule (6 sources) Start: 06-26-2024 End: 07-09-2025 [place] 1-Oah-Pda-Fish Oil (Fish Oil) 1,200 (144-216) mg capsule Discontinued 1 NMA PO DAILY June 26, 2024 12:00am July 09, 2025 10:52am supplement Start: 06-26-2024 Start: 06-26-2024 [place] 3-Dha-Ep a-Fish Oil (Fish Oil) 1,200 (144-216) mg capsule Active 1 NMA PO DAILY June 26, 2024 12:00am supplement Start: 06-26-2024 [place] 3-Dha-Ep a-Fish Oil (Fish Oil) 1,200 (144-216) mg capsule Active 1 NMA PO DAILY June 26, 2024 12:00am omeprazole 40 mg delayed release oral capsule (2 sources) Proton Pump Inhibitor Start: 06-10-2021 End: 02-17-2022 take 1 capsule by mouth once daily omeprazole (PRILOSEC) 40 mg capsule Take 1 capsule by mouth once daily. 30 capsule 2 06/10/2021 02/17/2022 Discontinued (Discontinued by Patient) Comment on above: Take 1 capsule by [facility] once daily. phenytoin sodium 100 mg extended release oral capsule (20 sources) Anti-epileptic Agent Start: 10-20-2021 take 200 mg by mouth once daily Phenytoin Sodium Extended Active 200 MG PO DAILY October 20, 2021 10:12am Start: 10-20-2021 take 1 capsule by mo [facility] once daily in the evening, then take 2 capsules by mouth once daily in the evening Phenytoin Sodium Extended 100 mg capsule Active 100 mg PO EVERY EVENING October 20, 2021 1:00am seizures Take 100 mg alternating with 200 mg QPM Complies with drug therapy Start: 10-19-2020 End: 10-20-2021 take 2 capsules by mouth twice daily Phenytoin Sodium Extended 100 mg capsule Discontinued 200 mg PO TWICE A DAY October 19, 2020 11:52am October 20, 2021 10:18am Start: 10-19-2020 End: 10-20-2021 take 200 mg by mouth twice daily Phenytoin Sodium Exte nded Discontinued 200 MG PO TWICE A DAY October 19, 2020 11:52am October 20, 2021 10:18am Start: 10-17-2018 End: 10-19-2020 take 1 capsule by mouth twice daily Phenytoin Sodium Extended 100 mg capsule Discontinued 100 mg PO TWICE A DAY October 17, 2018 1:00am October 19, 2020 11:52am Start: 01-15-2018 End: 04-16-2018 Phenytoin Sodium Extended 10 0 mg capsule Discontinued 100 mg PO .COMPLEX 90 0 January 16, 2018 4:22pm April 15, 2018 12:00am April 16, 2018 12:09am 100 mg PO 100 mg in the am, and then 100 qod alternating with 200 qod in the pm Start: 01-15-2018 End: 01-16-2018 Phenytoin Sodium Extended 10 0 mg capsule Discontinued PO 90 0 January 15, 2018 12:00am January 16, 2018 4:23pm Start: 01-15-2018 End: 01-16-2018 Phenytoin Sodium Extended Discontinued PO 90 January 15, 2018 12:00am January 16, 2018 4:23pm Start: 03-24-2017 End: 01-06-2025 take 2 capsules by mouth once daily Phenytoin Sodium Extended 100 mg capsule Discontinued 200 mg PO DAILY October 20, 2021 10:12am January 06, 2025 11:21am seizures Comment on above: Take by mouth. 200mg every morning; PM dose alternates between 100mg and 200mg every other day. polyethylene glycol 3350 62549 mg powder for oral solution (10 sources) Osmotic Laxative Start: 03-29-2018 End: 10-17-2018 Polyethylene Glycol 3350 17 gram/dose powder Discontinued PO 0 March 29, 2018 12:00am October 17, 2018 11:52am Start: 03-29-2018 End: 10-17-2018 Polyethylene Glycol 3350 Dis continued PO March 29, 2018 12:00am October 17, 2018 11:52am sennosides, fdc 8.6 mg oral tablet (10 sources) Start: 03-29-2018 End: 10-17-2018 take 1 tablet by mouth once daily as needed Sennosides (Senna) 8.6 mg tablet Discontinued 8.6 mg PO daily as needed March 29, 2018 12:00am October 17, 2018 11:52am SITagliptin 100 mg oral tablet (10 sources) Dipeptidyl Peptidase 4 Inhibitor Start: 03-21-2018 End: 10-16-2019 take 1 tablet by mouth once daily Sitagliptin Phosphate 100 MG tablet Discontinued 100 mg PO DAILY March 21, 2018 12:00am October 16, 2019 12:18pm Problems Active Problems Problem Classification Problem Date Documented Da te Episodic/Chronic Acute myocardial infarction (20 sources) Myocardial infarction; Translations: [Non-ST elevation (NSTEMI) myocardial infarction] Onset: 02-16-2018 02-23-2018 Chronic Cardiac dysrhythmias (13 sources) Ventricular bigeminy; Translations: [Other specified cardiac arrhythmias] Onset: 09-10-2024 07-30-2024 Chronic Coronary atherosclerosis and other heart disease (20 sources) History of non-ST segment elevation myocardial infarction; Translations: [Old myocardial infarction] Onset: 02-05-2018 10-11-2019 Chronic Coronary atherosclerosis and other heart disease (7 sources) Presence of aortocoronary bypass graft; Translations: [Aortocoronary bypass status] Onset: 02-18-2018 10-24-2022 Episodic Comment on above: Balloon angioplasty only (no stent) to RCA Diabetes mellitus with complications (20 sources) Type 2 diabetes mellitus; Translations: [Type 2 diabetes mellitus with hyperglycemia] Onset: 05-28-2017 Chronic Diabetes mellitus without complication (7 sources) Diabetes mellitus; Translations: [Type 2 diabetes mellitus without complications] Onset: 02-11-2025 07-03-2024 Chronic Diabetes mellitus without complication (6 sources) Hyperglycemia; Translations: [Hyperglycemia, unspecified] 07-03-2024 Episodic Disorders of lipid metabolism (14 sources) Hyperlipidemia; Translations: [Hyperlipidemia, unspecified] 10-11-2019 Chronic Essential hypertension (14 sources) Essential hypertension; Translations: [Essential (primary) hypertension] 10-20-2021 Chronic Nonspecific chest pain (10 sources) Chest pain; Translations: [Chest pain, unspecified] 10-11-2019 Episodic Other gastrointestinal disorders (1 source) Diarrhea, unspecified; Translations: [Diarrhea, unspecified] Onset: 07-01-2025 Episodic Other lower respiratory disease (10 sources) Dyspnea; Translations: [Dyspnea, unspecified] 10-11-2019 Episodic Other screening for suspected conditions (not mental disorders or infectious disease) (10 sources) Cardiovascular stress test abnormal; Translations: [Abnormal result of other cardiovascular function study] 10-11-2019 Episodic Past or Other Problems Problem Classification Problem Date Documented Da te Episodic/Chronic Malaise and fatigue (3 sources) Malaise and fatigue; Translations: [Other malaise] Onset: 12-16-2024 12-16-2024 Episodic Other nervous system disorders (1 source) Anesthesia of skin; Translations: [Left sided numbness] Onset: 09-15-2021 Episodic Pancreatic disorders (not diabetes) (20 sources) Pancreatitis; Translations: [Acute pancreatitis without necrosis or infection, unspecified] Onset: 06-23-2009 06-23-2009 Episodic Residual codes; unclassified (1 source) Personal history of other specified conditions; Translations: [History of seizures] Onset: 09-15-2021 Episodic Residual codes; unclassified (1 source) Other amnesia; Translations: [Memory loss] Onset: 09-15-2021 Episodic Results Test Name Value Interpretation Reference Range Facility [facility] 08-13-2025 CNOV Office Visit (JOHANAST ) BYRON RODRÍGUEZ ([id number]) 1955 M Date Time Provider Department 08/13/25 10:30 AM ANA HUSSEIN During your visit today, we recorded the following information about you: Blood pressure Weight Height 130/70 61.9 kg 1.676 m Ana Hussein APRN.[facility] 08/13/2025 10:49 AM Signed Subjective Byron Rodríguez is a 70 year old male. Date of encounter: 08/13/2025 Byron Rodríguez (1955), is a 70 year old male who presents for Diabetes management Important Lab History: HBA1C: 07/2016: 6.1%, 08/2016: 6.8%, 05/2017: 6%, 07/2017: 6.8%, 11/2017: 6.6%, 02/2018: 6.5%, 07/2018: 6.2%, 12/2018: 6%, 03/2019: 6.3%, 10/2019: 6.6%, 03/2020: HbA1C 6.2%. 07/2020: 6.3%, 01/2021: HbA1C 6.3%, 02/2021: 6.4%, 09/13/2021: 7.1%, 02/13/2022: HbA1C 6.6%, 08/2022: 7.4%, 12/2022: 7.1%, 03/2023: 7.3%, 07/2023: 7.5%09/2023: "6.9%" per patient at Primary Care Provider office., 02/2024: 6.6%, 05/2024: 7.1%, 06/2024: 6.6%, 10/2024: HbA1C 6.2%, 12/2024: 6.4%, 02/2025: 6.4%, per patient, 08/2025: 6.7%, Thyroid Function Testin05/2017: TSH 1.500 (0.358-3.740 uIU/mL), free T4 0.89 (0.76-1.46 ng/dL), 07/2018: TSH 1.94 (0.358-3.74 uIU/mL), free T4 0.94 (0.76-1.46), 03/2019: TSH 1.57 (0.358-3.74 uIU/mL), free T4 0.88 (0.76-1.46), 03/2020: TSH 1.78 (0.358-3.74), free T4 0.90 (0.76-1.46), 01/2021: TSH 2.89 (0.358-3.74), 10/2021: TSH 1.87 (0.358-3.74), free T4 1.0 (0.76-1.46), 06/2022: TSH 1.95 (0.358-3.74), 07/2023: TSH 2.19 (0.358-3.74), 06/2024: TSH 1.62 (0.358-3.74), 01/2025: TSH 2.21 (0.3-4.2) Renal Function Testin08/2016: Creatinine 0.72, 05/2017: creatinine 0.67 mg/dL, eGFR>60, 02/2018: Creatinine 0.65, 07/2018: Creatinine 0.82, 03/2019: Creatinine 0.67, 03/22/2020: Creatinine 0.72, 07/2020: Creatinine 0.71, 01/20/2021: Creatinine 0.7, 10/2021: Creatinine 0.71, 07/05/2022; Creatinine 0.71, 12/2022: Creatinine 0.74, 06/2023: creatinine 0.76, 02/2024: Creatinine 0.71, 06/2024: Creatinine 0.77, 06/2024: Creatinine 0.9, 10/2024: Creatinine 0.72, 02/2025: Creatinine 0.74 Urine for Microalbumin: 05/2017: microalbumin to creatinine ratio ok, 07/2018: Microalbumin:Creatini ne Ratio ok, 03/2019: Microalbumin:Creatini ne Ratio ok, 03/2020: Microalbumin:Creatini ne Ratio ok, 02/2021: Microalbumin:Creatini ne Ratio ok, 10/27/2021: Microalbumin:Creatini ne Ratio ok, 08/2022: Microalbumin:Creatini ne Ratio ok, 02/2024: Microalbumin:Creatini ne Ratio ok, 02/2025: Microalbumin:Creatini ne Ratio ok Lipid Profile: 08/2016: TC 169, HDL 61, LDL 96 TG 58, 02/2018: TC 119, HDL 48, LDL 55, TG 78, 10/24/2018: TC 104 HDL 47 LDL 47 TG 52, 07/31/19: TC 104 HDL 52 LDL 45 TG 33, 03/2020: TC 126 HDL 56 LDL 61 TG 43, 11/02/2020: TC 110 HDL 54 LDL 49 TG 37, 10/2021: TC 115 HDL HDL 52 LDL 53 TG 48, 06/2022: TC 126 HDL 54 LDL 62 TG 50, 12/2022: TC 123 HDL 52 LDL 58 TG 67, 02/2024: TC 127 HDL 60 LDL 58 TG 46, 06/2024; TC 108 HDL 56 LDL 39 TG 65, 10/2024: TC 124 HDL 63 LDL 50 TG 55 Liver Profile: 05/2017: Liver function tests ok, 02/2018: AST 83 (9-37 U/L), ALT, Alkaline Phosphatase ok, 07/2018: LFTS ok, 03/2019: LFTS ok, 03/2020: LFTS ok, 07/2020: AST ALT Alkaline Phosphatase ok, 10/2020: AST ALT Alkaline Phosphatase ok, 01/2021: AST ALT Alkaline Phosphatase ok, 10/2021: AST ALT Alkaline Phosphatase ok, 12/25/2022: AST ALT Alkaline Phosphatase ok, 06/2024: AST 79 (15-37), ALT and Alkaline Phosphatase ok, 02/2025: AST ALT Alkaline Phosphatase ok Dilated Eye Exam: Patient [...] antibody <0.6 (<1.0 U/mL), testing done at [facility]. 05/2017: c-peptide 3.6 (0.8-3.2 ng/mL) with glucose 100 mg/dL, Note (history): started on Januvia when in the hospital. Glucose is stable now, no significant low blood sugars. Has a history of pancreatitis-gall bladder induced per patient. I reviewed the association with pancreatitis and that class of drug. I reviewed signs of pancreatitis and when to go to ER. Patient elects to remain on the drug for now 12/2018: trialing discontinuation of Januvia, HbA1C is 6% and this is a higher copay drug for Brayan. Previous diabetes related labs from [employer] systems reviewed prior to today's office visit. Any changes made at our last diabetes management visit were abstracted accordingly (if applicable). Today's Office Visit: Labs: had done this yea (more content not included)... Normal [facility] Cardiology Visit Reporton Cardiology Visit Report [facility] [address] [place] [address] OFFICE VISIT Date of Service: 07/09/25 MR#: [id number] Acct: [id number] Name: BYRON RODRÍGUEZ Rep #: [id number] : 1955 Provider: ASHELY bryant Age/Sex: 69/M Location: [facility] Status: Signed HPI HPI History of Present Illness Details: BYRON RODRÍGUEZ, is a 69 M who presents to the office today for a cardiovascular outpatient follow-up. He is a gentleman with a history of coronary artery disease, hyperlipidemia, who underwent four- vessel coronary artery bypass surgery in February 2018 with a left internal mammary artery to the left anterior descending artery, free right internal mammary artery to the diagonal branch, saphenous vein graft to the ramus intermedius and obtuse marginal vessel. He was invited [facility] in June 2024 for non-ST elevated myocardial infarction. He had a heart catheterization on 06/27/2024 that showed patent 3 out of 4 bypass grafts and resulted in successful drug-eluting stent to distal RCA and ostial diagonal 2. Echocardiogram showed an ejection fraction of 50-55% and septal and inferior wall hypokinesis. He denies chest, arm, jaw, or neck discomfort. He denies palpitations. He denies bilateral lower extremity edema. He denies claudication. He denies shortness of breath with activity, shortness of breath at rest, orthopnea, or PND. He denies chronic cough. He denies significant, sudden weight gain. He denies lightheadedness, dizziness, near-syncope, or syncope. He denies blood in urine, blood in stool, or epistaxis. He denies fever with chills. He denies myalgia. He denies fatigue. His exercise level has remained stable. Intake Vital Signs 01/06/25 11:10 07/09/25 08:19 Height 5 ft 6 in 5 ft 6 in Weight: 137 lb BMI 22.1 BP 125/70 H Blood Pressure Location Lt brachial Position Sitting Respiration 18 Pulse 51 L Pulse Source Monitor Pulse Oximetry (%) 100 Intake Visit Reasons: 6 M FU [employer] Required: No Is patient in pain?: No Allergies No Known Allergies Allergy (Verified 07/09/25 10:51) Medications ???Medication ???Instructions ???Recorded ???Confirmed ???Type aspirin 81 mg tablet,delayed [address] [facility] 8 07/09/25 History release (Adult Aspirin Regimen) metformin 500 mg tablet,extended 1,000 mg PO BID diabetes 90 days 0 01/15/18 07/09/25 History release 24 hr #360 tabs multivitamin 1 tab PO QDAY supplement 01/15/18 07/09/25 History phenytoin sodium extended 100 mg 100 mg PO QPM seizures 10/20/21 History capsule empagliflozin 10 mg tablet 10 mg PO DAILY diabetes 10/23/23 1 History (Jardiance) lisinopril 20 mg tablet 20 mg PO QDAY 07/28/24 07/09/25 Hi story atorvastatin 80 mg tablet 80 mg PO QHS cholesterol #90 tabs 10/20/24 07/09/25 Rx phenytoin sodium extended 100 mg 200 mg PO QAM seizures 01/06/25 History capsule Ejection fraction %: 55 Have you fallen in the past year?: No PFSH Medical History Coronary artery disease NSTEMI (non-ST elevated myocardial infarction) (06/26/24) Anxiety Diabetes Pancreatitis Non-smoker Myocardial infarct Chest pain Hypertension Essential hypertension Hyperlipidemia History of non-ST elevation myocardial infarction (NSTEMI) (02/16/18) Atherosclerotic heart disease of [place] coronary artery without angina pectoris (02/2018) GERD (gastroesophageal reflux disease) Dyspnea Chest pain Seizure disorder Type 2 diabetes mellitus without complications Abnormal cardiovascular stress test Surgical History History of coronary artery stent placement S/P PTCA (percutaneous transluminal coronary angioplasty) H/O coronary artery bypass surgery (02/18/18) History of left heart catheterization (01/23/18) History of colonoscopy ( 05/2021) History of cholecystectomy Family History Mother , age 89 Hypertension Father , age 60's from rare neurological condition No problems noted. Brother CAD (coronary artery disease) Stented coronary artery Social History Smoking Status: Never smoker alcohol intake: current alcohol intake frequency: holidays/special occasions only substance use type: does not use caffeine: Yes Type: coffee Number of servings: 3 ROS Const Const: Negative for fatigue, weakness, headache(s) or frequent falls Eyes Eyes: Negative for blurry vision ENT ENT: Negative for headache(s), dizziness or Nosebleed/epistaxis Cardio Chest Pain: No Palpitations: No Edema: None Muscle aches w (more content not included)... Normal [facility] Celiac Disease Profileon ENDOMYSIAL IGA Negative Normal Negative [facility] Comment on above: Performed By: #### L 3410.2400, L501.6710 #### [facility] [address] [place], [place], [id number] IMMUNOGLOB A QN 128 mg/dL Normal 61-437 [facility] Comment on above: Result Comment: Perf ormed at: [facility] [id number] Prior Authorization Technician: Kade Allred PhD, Phone: [phone] Performed By: #### L 3410.2400, L501.6710 #### [facility] [address] [place], [place], [id number] tTG IGA <2 Normal 0-3 [facility] Comment on above: Result Comment: Nega tive 0 - 3 Weak Positive 4 - 10 Positive >10 Tissue Transglutaminase (tTG) has been identified as the endomysial antigen. Studies have demonstr- ated that endomysial IgA antibodies have over 99% specificity for gluten sensitive enteropathy. Performed By: #### L 3410.2400, L501.6710 #### [facility] [address] [place], [place], [address] CRPon 06-24-2025 C-REACTIVE PROT < 3.00 Normal 0.0-3.0 [facility] Comment on above: Performed By: #### L 3410.2400, L501.6710 #### [facility] [address] [place], [place], [id number] Serum or plasma C reactive p rotein measurement (mass/volume)Ordered By: Kade Curtis on 06-24-2025 CRP [Mass/Vol] mg/L 0.0-3.0 [facility] Serum or plasma IgA measurem ent (mass/volume)Ordered By: Kade Curtis on 06-24-2025 IgA [Mass/Vol] 128 mg/dL 61-437 [facility] Comment on above: Performed at: [address] [id number] Director: Kade Allred PhD, Phone: [phone] Serum tissue transglutaminas e (tTG) IgA antibody assay (units/volume)Ordered By: Kade Curtis on 06-24-2025 tTG IgA Qn (S) <2 U/mL 0-3 [facility] Comment on above: Negative 0 - 3 Weak Positive 4 - 10 Positive >10 Tissue Transglutaminase (tTG) has been identified as the endomysial antigen. Studies have demonstr- ated that endomysial IgA antibodies have over 99% specificity for gluten sensitive enteropathy. Ova and Parasites 8623on OP Order Date: 06/10/25 Order Info: [id number] - OP OVA AND PARASITES EXAM, ROUTINE These results were obtained using wet preparation(s) and trichrome stained smear. This test does not include testing for Crytosporidium parvum, Cyclospora, or Microsporidia. One negative specimen does not rule out the possibility of a parasitic infection. TESTING PERFORMED AT [facility] ORIGINAL REPORT ON FILE IN LAB CONTAINS ADDITIONAL TEST SITE INFORMATION. Ova/Parasite Exam NO OVA, CYSTS, OR PARASITES FOUND. Normal [facility] Comment on above: Performed By: #### M 100.6796, M600.5000 #### [facility] [address] [place], [place], [id number] CDIFF (PCR)on 06-11-2025 CDIFF Order Date: 06/10/25 Order Info: [id number] - C DIFF Order Info: [id number] - GASTOC Pending 027 027 NAP1-B1 Presumptive Negative *for epidemiolologic???use C. Diff PCR Negative- No toxigenic C. Diff Detected Normal [facility] Comment on above: Performed By: #### M 100.6796, M600.5000 #### [facility] [address] [place], [address] Clostridium difficile detect ion by polymerase chain reactionOrdered By: Juvencio Glez on 06-11-2025 C. difficile DNA TINA+probe Ql (Unsp spec) [facility] Stool Occult Blood iFOBon STOB Order Date: 06/10/25 Order Info: [id number] - C DIFF Order Info: [id number] - GASTOC Occult Blood A Positive A OCCULT BLOOD POSITIVE Normal [facility] Comment on above: Performed By: #### M 100.7900 #### [facility] [address] [place], [address] Stool gastrointestinal hemog lobin detection by immunologic methodOrdered By: Juvencio Glez on 06-11-2025 Lower GI hemoglobin IA Ql (Stl) Positive Abnormal [facility] Hemoglobin A1con 06-09-2025 HbA1c (Bld) [Mass fraction] 6.6 % High <=5.6 [facility] Comment on above: Result Comment: Norm al < 5.7 % Prediabetic 5.7 - 6.4 % Diabetic >or= 6.5 % Please note range changes. Performed By: #### M 100.7900 #### [facility] [address] [place], [address] Hemoglobin A1c percentageOrd ered By: Ana Hussein on 06-09-2025 HbA1c (Bld) [Mass fraction] 6.6 % High <5.7 [facility] Comment on above: Normal < 5.7 % Predi abetic 5.7 - 6.4 % Diabetic >or= 6.5 % Please note range changes. Sagar 05-28-2025 KITTY Telephone (ENAGST) ANDREWBYRON Foley ([id number]) 1955 M Date Time Provider Department 05/28/25 ANA HUSSEIN During your visit today, we recorded the following information about you: Ana Hussein APRN.HOUSE PAINTER 05/28/2025 11:34 AM Signed Has appointment in August, please schedule 3 months after that one in one of my VIRTUAL slots only Saritha Ramirez 05/28/2025 2:20 PM Signed Patient is scheduled for VV visit on 12/03/2024 at 12 pm. Saritha Ramirez May 28, 2025 2:20 PM Allergies As of Date: 05/28/2025 (No Known Allergies) Date Reviewed: 05/28/2025 Reviewed by: Ana Hussein APRN.HOUSE PAINTER - Fully Assessed Reason for Visit: Future Appointment [256] Prescriptions as of 05/28/2025 - metFORMIN ER (GLUCOPHAGE XR) 500 mg 24 hr tablet TWO TABLETS BEFORE BREAKFAST AND BEFORE SUPPER - lisinopril (ZESTRIL) 20 mg tablet - atorvastatin (LIPITOR) 80 mg tablet - mecobalamin/L-mefolat e/B6 phos (METANX ORAL) Take by mouth. - blood sugar diagnostic (ONETOUCH VERIO TEST STRIPS) test strip Use as instructed 1x/day - lancets (ONETOUCH DELICA PLUS LANCET) 33 gauge 1x/day - clopidogrel (PLAVIX) 75 mg tablet - Blood-Glucose Meter (PDC BiotechTOUCH VERIO METER) For monitoring sugars 1x/day - JARDIANCE 10 mg tablet - METOPROLOL TARTRATE ORAL Take by mouth. - phenytoin ER (DILANTIN) 100 mg ER capsule Take by mouth. 200mg every morning; PM dose alternates between 100mg and 200mg every other day. - ASPIRIN ORAL Take 81 mg by mouth once daily. - DOCOSAHEXANOIC ACID/EPA (FISH OIL ORAL) Take by mouth. - MULTIVITAMIN TAB Take one(1) tablet daily. Problem List As Of Date 05/28/2025 Noted Resolved Pancreatitis [K85.90] 06/23/2009 Type 2 diabetes mellitus with hyperglycemia (HC* NSTEMI (non-ST elevated myocardial infarction) *02/16/2018 S/P CABG x 4 [Z95.1] 02/19/2018 Encounter Status:Closed by SARITHA RAMIREZ on 05/28/25 Normal [facility] Albumin DL <= 20 mg/L (U) [M ass/Vol]Ordered By: Juvencio Glez on 02-05-2025 Urine Random Microalbumin < 12.0 mg/L NO RANGE EST. [facility] Anion gap in Serum or Plasma Ordered By: Juvencio Glez on 02-05-2025 Anion gap [Moles/Vol] 12 mmol/L 5-15 [facility] BUN/creatinine ratioOrdered By: Juvencio Glez on 02-05-2025 Urea nitrogen/Creatinine [Mass ratio] 18.0 mg/mg 10-20 [facility] Bilirubin, totalOrdered By: Juvencio Glez on 02-05-2025 Bilirubin [Mass/Vol] 0.34 mg/dL 0.00-1.30 [facility] Carbon dioxide, total [Moles /volume] in Central venous bloodOrdered By: Juvencio Glez on 02-05-2025 CO2 [Moles/Vol] 24.8 mmol/L 21.0-32.0 [facility] Chloride assayOrdered By: Frantz Glez on 02-05-2025 Chloride [Moles/Vol] 102 mmol/L 98-108 [facility] Comprehensive Metabolic Prof ilon 02-05-2025 Albumin [Mass/Vol] 4.6 g/dL Normal 3.4-4.8 [facility] Comment on above: Performed By: #### M 100.7900 #### [facility] [place], [address] Albumin/Globulin [Mass ratio] 2.1 {ratio} Normal 0.9-2.4 [facility] Comment on above: Performed By: #### M 100.7900 #### [facility] [address] [place], [address] ALK PHOS 82 U/L Normal 40-129 [facility] Comment on above: Performed By: #### M 100.7900 #### [facility] [address] [place], [address] ALT [Catalytic activity/Vol] 35 U/L Normal <=46 [facility] Comment on above: Performed By: #### M 100.7900 #### [facility] [address] [place], [address] AST [Catalytic activity/Vol] 25 U/L Normal <=37 [facility] Comment on above: Performed By: #### M 100.7900 #### [facility] [address] [place], [address] Bilirubin [Mass/Vol] 0.34 mg/dL Normal 0.00-1.30 [facility] Comment on above: Performed By: #### M 100.7900 #### [facility] [address] [place], [address] BUN/CRE 18.0 RATIO Normal 10-20 [facility] Comment on above: Performed By: #### M 100.7900 #### [facility] [address] [place], [address] Calcium [Mass/Vol] 9.6 mg/dL Normal 7.6-11.0 [facility] Comment on above: Performed By: #### M 100.7900 #### [facility] [address] [place], [address] Chloride [Moles/Vol] 102 mmol/L Normal 98-108 [facility] Comment on above: Performed By: #### M 100.7900 #### [facility] [address] [place], [address] CO2 [Moles/Vol] 24.8 mmol/L Normal 21.0-32.0 [facility] Comment on above: Performed By: #### M 100.7900 #### [facility] [address] [place], [address] Creatinine [Mass/Vol] 0.74 mg/dL Normal 0.70-1.20 [facility] Comment on above: Performed By: #### M 100.7900 #### [facility] [address] [place], [address] GAP 12 Normal 5-15 [facility] Comment on above: Performed By: #### M 100.7900 #### [facility] [address] [place], [address] GFR/1.73 sq M.predicted among non-blacks MDRD (S/P/Bld) [Vol rate/Area] 98 mL/min/{1.73_m2} Normal >60 [facility] Comment on above: Result Comment: mL/m in/1.73m2 CKD-EPI Creatinine Equation (2020) Performed By: #### M 100.7900 #### [facility] [address] [place], [address] Globulin (S) [Mass/Vol] 2.2 g/dL Normal 2.2-4.2 [facility] Comment on above: Performed By: #### M 100.7900 #### [facility] [address] [place], [address] Glucose [Mass/Vol] 108 mg/dL High 70-99 [facility] Comment on above: Performed By: #### M 100.7900 #### [facility] [address] [place], [address] Potassium [Moles/Vol] 4.1 mmol/L Normal 3.3-5.1 [facility] Comment on above: Performed By: #### M 100.7900 #### [facility] [address] [place], [address] Sodium [Moles/Vol] 139 mmol/L Normal 133-145 [facility] Comment on above: Performed By: #### M 100.7900 #### [facility] [address] [place], [address] T PROT 6.8 g/dL Normal 5.9-8.4 [facility] Comment on above: Performed By: #### M 100.7900 #### [facility] [address] [place], [address] Urea nitrogen [Mass/Vol] 13 mg/dL Normal 4-19 [facility] Comment on above: Performed By: #### M 100.7900 #### [facility] [address] [place], [address] Creatinine Unsp time (U) [Ma ss/Vol]Ordered By: Juvencio Glez on 02-05-2025 Creatinine (U) [Mass/Vol] 25.00 mg/dL Low 39.00-259.00 [facility] GFR/1.73 sq M.predicted alex g non-blacks MDRD (S/P/Bld) [Vol rate/Area]Ordered By: Juvencio Glez on 02-05-2025 Estimated GFR (MDRD) Non-Af Amer 98 >60 [facility] Comment on above: mL/min/1.73m2 CKD-EP I Creatinine Equation (2020) Laboratory - Chemistry and C hemistry - challengeOrdered By: Juvencio Glez on 02-05-2025 AST [Catalytic activity/Vol] 25 U/L <38 [facility] Microalb:Creat Ratio,Random URon 02-05-2025 Creatinine [Mass/Vol] 25.00 mg/dL Low 39.00-259.00 [facility] Comment on above: Performed By: #### M 100.7900 #### [facility] [address] [place], [address] MALB:CREAT UNABLE TO CALCULATE Normal [facility] Comment on above: Performed By: #### M 100.7900 #### [facility] [address] [place], [address] MICROALBUMIN,UR < 12.0 Normal NO RANGE EST. [facility] Comment on above: Performed By: #### M 100.7900 #### [facility] [address] [place], [address] Microalbumin/creat ratio urO rdered By: Juvencio Glez on 02-05-2025 Urine Microalbumin/Creatinine Ratio UNABLE TO CALCULATE mg/g CRE [facility] Potassium (Unsp spec) [Mass/ Vol]Ordered By: Juvencio Glez on 02-05-2025 Potassium [Moles/Vol] 4.1 mmol/L 3.3-5.1 [facility] Serum creatinine measurement (mass/volume)Ordered By: Juvencio Glez on 02-05-2025 Creatinine [Mass/Vol] 0.74 mg/dL 0.70-1.20 [facility] Serum globulin measurementOr dered By: Juvencio Glez on 02-05-2025 Globulin (S) [Mass/Vol] 2.2 g/dL 2.2-4.2 [facility] Serum glucose measurement (m ass/volume)Ordered By: Juvencio Glez on 02-05-2025 Glucose [Mass/Vol] 108 mg/dL High 70-99 [facility] Serum or plasma alanine patel otransferase (ALT) measurementOrdered By: Juvencio Glez on 02-05-2025 ALT [Catalytic activity/Vol] 35 U/L <47 [facility] Serum or plasma albumin eduardo urement (mass/volume)Ordered By: Juvencio Glez on 02-05-2025 Albumin [Mass/Vol] 4.6 g/dL 3.4-4.8 [facility] Serum or plasma albumin/glob ulin mass ratioOrdered By: Juvencio Glez on 02-05-2025 Albumin/Globulin [Mass ratio] 2.1 {ratio} 0.9-2.4 [facility] Serum or plasma alkaline lauren sphatase measurementOrdered By: Juvencio Glez on 02-05-2025 ALP [Catalytic activity/Vol] 82 U/L 40-129 [facility] Serum or plasma calcium eduardo urement (mass/volume)Ordered By: Juvencio Glez on 02-05-2025 Calcium [Mass/Vol] 9.6 mg/dL 7.6-11.0 [facility] Serum or plasma urea nitroge n measurement (mass/volume)Ordered By: Juvencio Glez on 02-05-2025 Urea nitrogen [Mass/Vol] 13 mg/dL 4-19 [facility] Sodium levelOrdered By: Juvencio Glez on 02-05-2025 Sodium [Moles/Vol] 139 mmol/L 133-145 [facility] Total proteinOrdered By: Elena Glez on 02-05-2025 Protein [Mass/Vol] 6.8 g/dL 5.9-8.4 [facility] CNPNon 01-30-2025 CNPN Telephone (CARLYNOG) BYRON RODRÍGUEZ ([id number]) 1955 M Date Time Provider Department 01/30/25 ANA HUSSEIN AGESOULEYMANE During your visit today, we recorded the following information about you: Kurt Williamson 01/30/2025 1:19 PM Signed Recent labs uploaded to patients chart Ana Ibanez APRN.HOUSE PAINTER 02/08/2025 11:47 AM Signed 01/2025: TSH 2.21 (0.3-4.2) 01/2025: Vitamin b12 1409, folate >40, patient taking metanx which may raise this. Advised to discuss labs with Primary Care Provider to ensure no further action is needed.patient verbalized understanding and has an appointment soon. Labs were already cc'd to his Primary Care Provider Plan previously discussed with patient. Allergies As of Date: 01/30/2025 (No Known Allergies) Date Reviewed: 12/16/2024 Reviewed by: Ana Hussein APRN.HOUSE PAINTER - Fully Assessed Reason for Visit: Results, Lab [1201] Prescriptions as of 02/08/2025 - metFORMIN ER (GLUCOPHAGE XR) 500 mg 24 hr tablet TWO TABLETS BEFORE BREAKFAST AND BEFORE SUPPER - lisinopril (ZESTRIL) 20 mg tablet - atorvastatin (LIPITOR) 80 mg tablet - mecobalamin/L-mefolat e/B6 phos (METANX ORAL) Take by mouth. - blood sugar diagnostic ([employer] VERIO TEST STRIPS) test strip Use as instructed 1x/day - lancets ([employer] DELICA PLUS LANCET) 33 gauge 1x/day - clopidogrel (PLAVIX) 75 mg tablet - Blood-Glucose Meter ([employer] VERIO METER) For monitoring sugars 1x/day - JARDIANCE 10 mg tablet - METOPROLOL TARTRATE ORAL Take by mouth. - phenytoin ER (DILANTIN) 100 mg ER capsule Take by mouth. 200mg every morning; PM dose alternates between 100mg and 200mg every other day. - ASPIRIN ORAL Take 81 mg by mouth once daily. - DOCOSAHEXANOIC ACID/EPA (FISH OIL ORAL) Take by mouth. - MULTIVITAMIN TAB Take one(1) tablet daily. Problem List As Of Date 01/30/2025 Noted Resolved Pancreatitis [K85.90] 06/23/2009 Type 2 diabetes mellitus with hyperglycemia (HC* NSTEMI (non-ST elevated myocardial infarction) *02/16/2018 S/P CABG x 4 [Z95.1] 02/19/2018 Encounter Status:Closed by KURT WILLIAMSON on 01/30/25 Normal [facility] Folate [Mass/Vol]on 01-30-20 25 Serum Folate > 40.00 ng/mL High 4.60-34.80 [facility] Comment on above: Hemolysis, Results w ill be affected, Requires Recollection. Folates,Serum (Folic Acid)on 01-29-2025 FOLATES,SERUM > 40.00 High 4.60-34.80 [facility] Comment on above: Order Comment: N Result Comment: Hemo lysis, Results will be affected, Requires Recollection. Performed By: #### M 100.7900 #### [facility] [address] [place], [address] TSH DL <= 0.005 mIU/L Qnon 0 01-29-2025 Thyroid Stimulating Hormone (TSH) 2.210 uIU/mL 0.300-4.200 [facility] Thyroid Stim Hormone (TSH)on 01-29-2025 TSH 2.210 uIU/mL Normal 0.300-4.200 [facility] Comment on above: Performed By: #### L 503.0106, L501.9520, L506.0200 #### [facility] [address] [place], [address] Vitamin B12on 01-29-2025 Cobalamin (Vitamin B12) [Mass/Vol] 1409 pg/mL High 180-914 [facility] Comment on above: Performed By: #### M 100.7900 #### [facility] [address] [place], [address] Vitamin B12 ser/plason 01-29 Cobalamin (Vitamin B12) [Mass/Vol] 1409 pg/mL High 180-914 [facility] Cardiology Visit Reporton Cardiology Visit Report [facility] [address] [place], [place] [address] OFFICE VISIT Date of Service: 01/06/25 MR#: [id number] Acct: [id number] Name: BYRON RODRÍGUEZ Rep #: [id number] : 1955 Provider: ASHELY bryant Age/Sex: 69/M Location: [facility] [place] Status: Signed HPI HPI History of Present Illness Details: BYRON RODRÍGUEZ, is a 69 M who presents to the office today for a cardiovascular outpatient follow-up. He is a gentleman with a history of coronary artery disease, hyperlipidemia, who underwent four- vessel coronary artery bypass surgery in February 2018 with a left internal mammary artery to the left anterior descending artery, free right internal mammary artery to the diagonal branch, saphenous vein graft to the ramus intermedius and obtuse marginal vessel. He was invited [facility] in June 2024 for non-ST elevated myocardial infarction. He had a heart catheterization on 06/27/2024 that showed patent 3 out of 4 bypass grafts and resulted in successful drug-eluting stent to distal RCA and ostial diagonal 2. Echocardiogram showed an ejection fraction of 50-55% and septal and inferior wall hypokinesis. He acknowledges weekly sporadic chest discomfort. He describes this as a buzzing sensation. This occurs at rest and during times of anxiety. Is located left side of his chest and last for hours. He denies palpitations, bilateral lower extreme edema, or claudication. He acknowledges intermittent shortness of breath with activity and intermittent shortness of breath at rest. He denies orthopnea, cough, or PND. He acknowledges a positional lightheadedness. He denies dizziness, near-syncope, or syncope. He acknowledges fatigue. 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: No Is patient in pain?: No Allergies No Known Allergies Allergy (Verified 01/06/25 11:19) Medications ???Medication ???Instructions ???Recorded ???Confirmed ???Type aspirin 81 mg tablet,delayed 81 mg PO QDAY heart health 8 01/06/25 History release (Adult Aspirin Regimen) metformin 500 mg tablet,extended 1,000 mg PO BID diabetes 90 days 0 01/15/18 01/06/25 History release 24 hr #360 tabs multivitamin 1 tab PO QDAY supplement 01/15/18 01/06/25 History metoprolol tartrate 25 mg tablet 12.5 mg PO BID heart/BP 10/19/20 0 01/06/25 History phenytoin sodium extended 100 mg 100 mg PO QPM seizures 10/20/21 History capsule empagliflozin 10 mg tablet 10 mg PO DAILY diabetes 10/23/23 0 01/06/25 History (Jardiance) omega 2-wyt-dsf-fish oil 1,200 mg 1 cap PO DAILY supplement 4 01/06/25 History (144 mg-216 mg) capsule (Fish Oil) clopidogrel 75 mg tablet 75 mg PO DAILY 90 days #90 tabs 01/06/25 Rx levomefolate Ca 3 mg-B6 35 1 cap PO BID #180 caps 07/28/24 Rx mg-meB12 2 mg-algal oil 90.314 mg capsule (Metanx (algal oil)) lisinopril 20 mg tablet 20 mg PO QDAY 07/28/24 01/06/25 Hi story atorvastatin 80 mg tablet 80 mg PO QHS cholesterol #90 tabs 10/20/24 01/06/25 Rx phenytoin sodium extended 100 mg 200 mg PO QAM seizures 01/06/25 History capsule Ejection fraction %: 50 (50-55) Have you fallen in the past year?: No PFSH Medical History Coronary artery disease NSTEMI (non-ST elevated myocardial infarction) (06/26/24) Anxiety Diabetes Pancreatitis Non-smoker Myocardial infarct Chest pain Hypertension Essential hypertension Hyperlipidemia History of non-ST elevation myocardial infarction (NSTEMI) (02/16/18) Atherosclerotic heart disease of lower [place] coronary artery without angina pectoris (02/2018) GERD (gastroesophageal reflux disease) Dyspnea Chest pain Seizure disorder Type 2 diabetes mellitus without complications Abnormal cardiovascular stress test Surgical History History of coronary artery stent placement S/P PTCA (percutaneous transluminal coronary angioplasty) H/O coronary artery bypass surgery (02/18/18) History of left heart catheterization (01/23/18) History of colonoscopy ( 05/2021) History of cholecystectomy Family History Mother , age 89 Hypertension Father , age 60's from rare neurological condition No problems noted. Brother CAD (coronary artery disease) Stented coronary artery Social History S (more content not included)... [facility] CNPAdelia [facility]OD[facility]UE[facility] ([id number]) 1955 Date Time Provider Department 12/22/24 ANA HUSSEIN During your visit today, we recorded the following information about you: Viktoria German 12/22/2024 10:15 AM Signed ----- Message from Marika Canela sent at 12/22/2024 9:57 AM EDT ----- Regarding: Uirb-Pmviiemrn-Amsoy visit reschedule ======= Patient: Byron Rodríguez Date of : 1955 Primary Care Provider: Juvencio Glez MD Patient has been identified by name and Date of (Y/N): Patient: Byron Rodríguez Date of : 1955 Provider for this encounter: Juvencio Glez MD Reason for the call/escalation: diabetic video visit march 23 or first/ second week of April- morning appointments 06-17--- Tuesdays and work best No video appointments populated for him for me to reschedule Was Patient Referred to [facility]/Seek Emergency Treatment (Y/N): n/a Did Patient Agree (Y/N): n/a Was An Attempt Made To Transfer The Patient To The Office (Y/N): n Were You Able To Reach Someone At The Office (Y/N): n If Yes - Patient Was Transferred To (Caregivers Name): n/a If No - Which [facility] Leadership Chemical Instrumentation Officer Did You Speak With Regarding This Patient: n/a Was an appointment scheduled (Y/N): n/a Reason patient was requesting visit (RFV/signs and symptoms/diagnosis) : diabetic Person calling if other than patient: n/a Return call to if other than patient: n/a Best contact number: [phone] Thank you, Marika Peggyfletchershawbeatriz December 22, 2024 9:57 AM Viktoria German 12/22/2024 10:16 AM Signed F/u ov made may and August Viktoria German December 22, 2024 10:16 AM Allergies As of Date: 12/22/2024 (No Known Allergies) Date Reviewed: 12/16/2024 Reviewed by: Ana Hussein, KEITH.HOUSE PAINTER - Fully Assessed Prescriptions as of 12/22/2024 - lisinopril (ZESTRIL) 20 mg tablet - atorvastatin (LIPITOR) 80 mg tablet - mecobalamin/L-mefolat e/B6 phos (METANX ORAL) Take by mouth. - metFORMIN ER (GLUCOPHAGE XR) 500 mg 24 hr tablet TWO TABLETS BEFORE BREAKFAST AND BEFORE SUPPER - blood sugar diagnostic (PDC BiotechTOUCH VERIO TEST STRIPS) test strip Use as instructed 1x/day - lancets (PDC BiotechTOUCH DELICA PLUS LANCET) 33 gauge 1x/day - clopidogrel (PLAVIX) 75 mg tablet - Blood-Glucose Meter (ONETOUCH VERIO METER) For monitoring sugars 1x/day - JARDIANCE 10 mg tablet - METOPROLOL TARTRATE ORAL Take by mouth. - phenytoin ER (DILANTIN) 100 mg ER capsule Take by mouth. 200mg every morning; PM dose alternates between 100mg and 200mg every other day. - ASPIRIN ORAL Take 81 mg by mouth once daily. - DOCOSAHEXANOIC ACID/EPA (FISH OIL ORAL) Take by mouth. - MULTIVITAMIN TAB Take one(1) tablet daily. Problem List As Of Date 12/22/2024 Noted Resolved Pancreatitis [K85.90] 06/23/2009 Type 2 diabetes mellitus with hyperglycemia (HC* NSTEMI (non-ST elevated myocardial infarction) *02/16/2018 S/P CABG x 4 [Z95.1] 02/19/2018 Encounter Status:Closed by VIKTORIA GERMAN on 12/22/24 [facility] CNOVon 12-16-2024 CNOV Office Visit (ENAGST ) BYRON RODRÍGUEZ ([id number]) 1955 Date Time Provider Department 12/16/24 9:00 AM ANA HUSSEIN During your visit today, we recorded the following information about you: Blood pressure Weight Height 122/72 63.1 kg 1.676 m Ana Hussein, KEITH.[facility] 12/16/2024 9:37 AM Signed Subjective Date of encounter: 12/16/2024 Byron Rodríguez (1955), is a 69 year old male who presents for Diabetes management Important Lab History: HBA1C: 07/2016: 6.1%, 08/2016: 6.8%, 05/2017: 6%, 07/2017: 6.8%, 11/2017: 6.6%, 02/2018: 6.5%, 07/2018: 6.2%, 12/2018: 6%, 03/2019: 6.3%, 10/2019: 6.6%, 03/2020: HbA1C 6.2%. 07/2020: 6.3%, 01/2021: HbA1C 6.3%, 02/2021: 6.4%, 09/13/2021: 7.1%, 02/13/2022: HbA1C 6.6%, 08/2022: 7.4%, 12/2022: 7.1%, 03/2023: 7.3%, 07/2023: 7.5%09/2023: "6.9%" per patient at Primary Care Provider office., 02/2024: 6.6%, 05/2024: 7.1%, 06/2024: 6.6%, 10/2024: HbA1C 6.2%, 12/2024: 6.4% Thyroid Function Testin05/2017: TSH 1.500 (0.358-3.740 uIU/mL), free T4 0.89 (0.76-1.46 ng/dL), 07/2018: TSH 1.94 (0.358-3.74 uIU/mL), free T4 0.94 (0.76-1.46), 03/2019: TSH 1.57 (0.358-3.74 uIU/mL), free T4 0.88 (0.76-1.46), 03/2020: TSH 1.78 (0.358-3.74), free T4 0.90 (0.76-1.46), 01/2021: TSH 2.89 (0.358-3.74), 10/2021: TSH 1.87 (0.358-3.74), free T4 1.0 (0.76-1.46), 06/2022: TSH 1.95 (0.358-3.74), 07/2023: TSH 2.19 (0.358-3.74), 06/2024: TSH 1.62 (0.358-3.74) Renal Function Testin08/2016: Creatinine 0.72, 05/2017: creatinine 0.67 mg/dL, eGFR>60, 02/2018: Creatinine 0.65, 07/2018: Creatinine 0.82, 03/2019: Creatinine 0.67, 03/22/2020: Creatinine 0.72, 07/2020: Creatinine 0.71, 01/20/2021: Creatinine 0.7, 10/2021: Creatinine 0.71, 07/05/2022; Creatinine 0.71, 12/2022: Creatinine 0.74, 06/2023: creatinine 0.76, 02/2024: Creatinine 0.71, 06/2024: Creatinine 0.77, 06/2024: Creatinine 0.9, 10/2024: Creatinine 0.72 Urine for Microalbumin: 05/2017: microalbumin to creatinine ratio ok, 07/2018: Microalbumin:Creatini ne Ratio ok, 03/2019: Microalbumin:Creatini ne Ratio ok, 03/2020: Microalbumin:Creatini ne Ratio ok, 02/2021: Microalbumin:Creatini ne Ratio ok, 10/27/2021: Microalbumin:Creatini ne Ratio ok, 08/2022: Microalbumin:Creatini ne Ratio ok, 02/2024: Microalbumin:Creatini ne Ratio ok Lipid Profile: 08/2016: TC 169, HDL 61, LDL 96 TG 58, 02/2018: TC 119, HDL 48, LDL 55, TG 78, 10/24/2018: TC 104 HDL 47 LDL 47 TG 52, 07/31/19: TC 104 HDL 52 LDL 45 TG 33, 03/2020: TC 126 HDL 56 LDL 61 TG 43, 11/02/2020: TC 110 HDL 54 LDL 49 TG 37, 10/2021: TC 115 HDL HDL 52 LDL 53 TG 48, 06/2022: TC 126 HDL 54 LDL 62 TG 50, 12/2022: TC 123 HDL 52 LDL 58 TG 67, 02/2024: TC 127 HDL 60 LDL 58 TG 46, 06/2024; TC 108 HDL 56 LDL 39 TG 65, 10/2024: TC 124 HDL 63 LDL 50 TG 55 Liver Profile: 05/2017: Liver function tests ok, 02/2018: AST 83 (9-37 U/L), ALT, Alkaline Phosphatase ok, 07/2018: LFTS ok, 03/2019: LFTS ok, 03/2020: LFTS ok, 07/2020: AST ALT Alkaline Phosphatase ok, 10/2020: AST ALT Alkaline Phosphatase ok, 01/2021: AST ALT Alkaline Phosphatase ok, 10/2021: AST ALT Alkaline Phosphatase ok, 12/25/2022: AST ALT Alkaline Phosphatase ok, 06/2024: AST 79 (15-37), ALT and Alkaline Phosphatase ok Dilated Eye Exam: Patient [...] antibody <0.6 (<1.0 U/mL), testing done at [facility]. 05/2017: c-peptide 3.6 (0.8-3.2 ng/mL) with glucose 100 mg/dL, Note (history): started on Januvia when in the hospital. Glucose is stable now, no significant low blood sugars. Has a history of pancreatitis-gall bladder induced per patient. I reviewed the association with pancreatitis and that class of drug. I reviewed signs of pancreatitis and when to go to ER. Patient elects to remain on the drug for now 12/2018: trialing discontinuation of Januvia, HbA1C is 6% and this is a higher copay drug for Brayan. Previous diabetes related labs from [facility] reviewed prior to today's office visit. Any changes made at our last diabetes management visit were abstracted accordingly (if applicable). Today's Office Visit: Last 10 Encounter Wt Readings: Date: Wt: 12/16/2024 63.1 kg (139 lb 3.2 oz) 06/02/2024 67.9 kg (149 lb 12.8 oz) 07/10/2023 68.7 kg (151 lb 6.4 oz) 03/15/2023 70.6 kg (155 lb 9.6 oz) 08/17/2022 72 kg (158 lb 12.8 oz) 09/15/2021 71.2 kg (157 (more content not included)... Normal [facility] GLOOKO ON DEMANDon Ordered by an unspecified provider. [facility] HEMOGLOBIN A1C (POC)on 12-16 HbA1c (Bld) [Mass fraction] 6.4 % Abnormal 4.3 - 5.6 % [facility] Comment on above: Location:[facility], [address] [place] [address], [facility] Point of care (POC) Hemoglobin A1c (HGBA1C) testing is intended to assess glucose control and provide a management tool for patients known to have diabetes and their healthcare providers. Target HGBA1C levels may depend on specific clinical circumstances. POC HGBA1C is not intended for use as a diagnostic or screening test; laboratory-based testing should be used for diagnostic purposes. The following information is supplemental and may not be applicable to specific diabetes management situations: The POC device electrical installation supervisor provides a normal range of 4.2% to 6.5% for the HGBA1C POC test. However, the [place] [employer] guidelines indicate that patients with HGBA1C in the range of 5.7% to 6.4% are at increased risk for development of diabetes and that intervention by lifestyle modification may be beneficial. A HGBA1C level greater than or equal to 6.5% is considered diagnostic of diabetes, pending confirmatory testing. Use of HGBA1C testing to evaluate glucose control may not be appropriate for patients with hemoglobin variants or other conditions (e.g. anemia) that alter red blood cell lifespan. Interpretation and review of laboratory results Abnormal [facility] CNPNon 10-31-2024 CNPN Telephone (AGENDOG) BYRON RODRÍGUEZ ([id number]) 1955 M Date Time Provider Department 10/31/24 ANA HUSSEIN During your visit today, we recorded the following information about you: Kurt Williamson 10/31/2024 7:26 AM Signed Recent labs uploaded to patients chart Kurt Clay Allergies As of Date: 10/31/2024 (No Known Allergies) Date Reviewed: 10/25/2023 Reviewed by: Ana Hussein APRN.HOUSE PAINTER - Fully Assessed Reason for Visit: Results, Lab [1201] Prescriptions as of 10/31/2024 - clopidogrel (PLAVIX) 75 mg tablet - metFORMIN ER (GLUCOPHAGE XR) 500 mg 24 hr tablet TAKE 2 TABLETS BEFORE BREAKFAST AND ONE TABLET BEFORE SUPPER - lisinopril (ZESTRIL) 10 mg tablet Take by mouth. - blood sugar diagnostic (ONETOUCH VERIO TEST STRIPS) test strip Use as instructed 1x/day - Blood-Glucose Meter (ONETOUCH VERIO METER) For monitoring sugars 1x/day - lancets (ONETOUCH DELICA PLUS LANCET) 33 gauge 1x/day - JARDIANCE 10 mg tablet - METOPROLOL TARTRATE ORAL Take by mouth. - atorvastatin (LIPITOR) 40 mg tablet - phenytoin ER (DILANTIN) 100 mg ER capsule Take by mouth. 200mg every morning; PM dose alternates between 100mg and 200mg every other day. - ASPIRIN ORAL Take 81 mg by mouth once daily. - DOCOSAHEXANOIC ACID/EPA (FISH OIL ORAL) Take by mouth. - MULTIVITAMIN TAB Take one(1) tablet daily. Problem List As Of Date 10/31/2024 Noted Resolved Pancreatitis [K85.90] 06/23/2009 Type 2 diabetes mellitus with hyperglycemia (HC* NSTEMI (non-ST elevated myocardial infarction) *02/16/2018 S/P CABG x 4 [Z95.1] 02/19/2018 Encounter Status:Closed by KURT WILLIAMSON on 10/31/24 Normal [facility] Basic Metabolic Profile (BMP )on 10-30-2024 BUN/CRE 16.6 RATIO Normal 10-20 [facility] Comment on above: Order Comment: Order Date: 10/23/24 Order Info: 0667-1 - BMP Order Info: [id number] - LIPID DR GLEZ ORDERD BMP ,LIPID,A1C DR GARCIA ORDERGena A1C Performed By: #### L 500.2500 #### [facility] [address] [place], [place], [address] (673) CA,Total 9.4 mg/dL Normal 8.5-10.1 [facility] Comment on above: Order Comment: Order Date: 10/23/24 Order Info: 0667-1 - BMP Order Info: [id number] - LIPID DR GLEZ ORDERGena BMP ,LIPID,A1C DR GARCIA ORDERGena A1C Performed By: #### L 500.2500 #### [facility] [address] [place], [place], [address] (828) Chloride [Moles/Vol] 103 mmol/L Normal 98-107 [facility] Comment on above: Order Comment: Order Date: 10/23/24 Order Info: 0667-1 - BMP Order Info: [id number] - LIPID DR GLEZ ORDERGena BMP ,LIPID,A1C DR GARCIA ORDERGena A1C Performed By: #### L 500.2500 #### [facility] [address] [place], [place], [id number] CO2 [Moles/Vol] 28.0 mmol/L Normal 21.0-32.0 [facility] Comment on above: Order Comment: Order Date: 10/23/24 Order Info: [id number]- - BMP Order Info: [id number] - LIPID DR GLEZ ORDERGena BMP ,LIPID,A1C DR GARCIA ORDERGena A1C Performed By: #### L 500.2500 #### [facility] [address] [place], [place], [address] Creatinine [Mass/Vol] 0.72 mg/dL Normal 0.70-1.30 [facility] Comment on above: Order Comment: Order Date: 10/23/24 Order Info: 06 - BMP Order Info: [id number] - LIPID DR GLEZ ORDERGena BMP ,LIPID,A1C DR GARCIA ORDERGena A1C Result Comment: The validity of the calculated GFR GFRAA in patients over 70 years has not been determined. Clinical correlation is essential. Performed By: #### L 500.2500 #### [facility] [address] [place], [place], [address] EST GFR - AA 138 mL/min Normal >60 [facility] Comment on above: Order Comment: Order Date: 10/23/24 Order Info: [id number] - BMP Order Info: [id number] - LIPID DR GLEZ ORDERGena BMP ,LIPID,A1C DR GARCIA ORDERGena A1C Result Comment: Afri can [place] GFR Calc Performed By: #### L 500.2500 #### [facility] [address] [place], [address] GAP 7 Normal 5-15 [facility] Comment on above: Order Comment: Order Date: 10/23/24 Order Info: 06 - BMP Order Info: [id number] - LIPID DR GLEZ ORDERGena BMP ,LIPID,A1C DR GARCIA ORDERGena A1C Performed By: #### L 500.2500 #### [facility] [address] [place], [place], [id number] (187) GFR/1.73 sq M.predicted among non-blacks MDRD (S/P/Bld) [Vol rate/Area] 114 mL/min/{1.73_m2} Normal >60 [facility] Comment on above: Order Comment: Order Date: 10/23/24 Order Info: 666-10 - BMP Order Info: [id number] - LIPID DR GLEZ ORDERGena BMP ,LIPID,A1C DR GARCIA ORDERGena A1C Result Comment: Non- GFR Calc Performed By: #### L 500.2500 #### [facility] [address] [place], [address] Glucose [Mass/Vol] 139 mg/dL High 74-106 [facility] Comment on above: Order Comment: Order Date: 10/23/24 Order Info: [id number] - BMP Order Info: [id number] - LIPID DR GLEZ ORDERD BMP ,LIPID,A1C DR GARCIA ORDERGena A1C Result Comment: Fast ing Glucose result greater than or equal to 126 mg/dL suggests DIABETES MELLITUS per A.D.A. criteria. Performed By: #### L 500.2500 #### [facility] [address] [place], [address] Potassium [Moles/Vol] 4.1 mmol/L Normal 3.5-5.1 [facility] Comment on above: Order Comment: Order Date: 10/23/24 Order Info: 666-10 - BMP Order Info: [id number] - LIPID DR GLEZ ORDERGena BMP ,LIPID,A1C DR GARCIA ORDERGena A1C Performed By: #### L 500.2500 #### [facility] [address] [place], [address] Sodium [Moles/Vol] 138 mmol/L Normal 136-145 [facility] Comment on above: Order Comment: Order Date: 10/23/24 Order Info: 666-10 - BMP Order Info: [id number] - LIPID DR GLEZ ORDERGena BMP ,LIPID,A1C DR GARCIA ORDERGena A1C Performed By: #### L 500.2500 #### [facility] [address] [place], [address] Urea nitrogen [Mass/Vol] 12 mg/dL Normal 7-18 [facility] Comment on above: Order Comment: Order Date: 10/23/24 Order Info: [id number] - BMP Order Info: [id number] - LIPID DR GLEZ ORDERD BMP ,LIPID,A1C DR GARCIA ORDERD A1C Performed By: #### L 500.2500 #### [facility] [address] [place], [place], [address] Blood urea nitrogen (BUN)/cr eatinine ratioOrdered By: Juvencio Glez on 10-30-2024 Urea nitrogen/Creatinine [Mass ratio] 16.6 mg/mg 10-20 [facility] Carbon dioxide measurementOr dered By: Juvencio Glez on 10-30-2024 CO2 [Moles/Vol] 28.0 mmol/L 21.0-32.0 [facility] Chloride measurementOrdered By: Juvencio Glez on 10-30-2024 Chloride [Moles/Vol] 103 mmol/L 98-107 [facility] Estimated glomerular filtrat ion rate (GFR) AmericanOrdered By: Juvencio Glez on 10-30-2024 Estimated GFR (MDRD) Amer 138 mL/min >60 [facility] Comment on above: GFR Calc Glomerular filtration rate ( GFR) estimationOrdered By: Juvencio Glez on 10-30-2024 Estimated GFR (MDRD) Non-Af Amer 114 mL/min >60 [facility] Comment on above: Non- GFR Calc Glucose measurementOrdered B y: Juvencio Glez on 10-30-2024 Glucose [Mass/Vol] 139 mg/dL High 74-106 [facility] Comment on above: Fasting Glucose resu lt greater than or equal to 126 mg/dL suggests DIABETES MELLITUS per A.D.A. criteria. Hemoglobin A1con 10-30-2024 HbA1c (Bld) [Mass fraction] 6.2 % High 3.8-5.6 [facility] Comment on above: Order Comment: Order Date: 10/23/24 Order Info: [id number] - A1C Result Comment: Norm al < 5.7 % Prediabetic 5.7 - 6.4 % Diabetic >or= 6.5 % Please note range changes. Performed By: #### L 501.9985 #### [facility] [address] [place], [place], [address] Hemoglobin A1c percentageOrd ered By: Juvencio Glez on 10-30-2024 HbA1c (Bld) [Mass fraction] 6.2 % High 3.8-5.6 [facility] Comment on above: Normal < 5.7 % Predi abetic 5.7 - 6.4 % Diabetic >or= 6.5 % Please note range changes. High density lipoprotein (HD L) measurementOrdered By: Juvencio Glez on 10-30-2024 Cholesterol in HDL [Mass/Vol] 63 mg/dL >40 [facility] Comment on above: The drugs N-Acetylcy steine and Metamizole may falsely depress this assay. Reference Range HDL <40 mg/dL Low HDL Cholesterol HDL >or= 60 mg/dL High HDL Cholesterol Lipid Profileon 10-30-2024 Cholesterol [Mass/Vol] 124 mg/dL Normal 200 [facility] Comment on above: Order Comment: Order Date: 10/23/24 Order Info: [id number] - BMP Order Info: [id number] - LIPID DR GLEZ ORDERD BMP ,LIPID,A1C DR GARCIA ORDERD A1C Result Comment: <200 mg/dL Desirable 200-240 mg/dL Borderline >240 mg/dL High Risk Performed By: #### L 500.4100 #### [facility] [address] [place], [place], [address] Cholesterol in HDL [Mass/Vol] 63 mg/dL Normal [facility] Comment on above: Order Comment: Order Date: 10/23/24 Order Info: 0667-1 - BMP Order Info: [id number] - LIPID DR GLEZ ORDERD BMP ,LIPID,A1C DR GARCIA ORDERD A1C Result Comment: The drugs N-Acetylcysteine and Metamizole may falsely depress this assay. Reference Range HDL <40 mg/dL Low HDL Cholesterol HDL >or= 60 mg/dL High HDL Cholesterol Performed By: #### L 500.4100 #### [facility] [address] [place], [place], [address] Cholesterol in LDL [Mass/Vol] 50 mg/dL Normal 0-130 [facility] Comment on above: Order Comment: Order Date: 10/23/24 Order Info: [id number] - BMP Order Info: [id number] - LIPID DR GLEZ ORDERD BMP ,LIPID,A1C DR GARCIA ORDERD A1C Performed By: #### L 500.4100 #### [facility] [address] [place], [place], [address] Cholesterol in VLDL [Mass/Vol] 11 mg/dL Normal 5-40 [facility] Comment on above: Order Comment: Order Date: 10/23/24 Order Info: [id number] - BMP Order Info: [id number] - LIPID DR GLEZ ORDERD BMP ,LIPID,A1C DR GARCIA ORDERD A1C Performed By: #### L 500.4100 #### [facility] [address] [place], [place], [address] Triglyceride [Mass/Vol] 55 mg/dL Normal [facility] Comment on above: Order Comment: Order Date: 10/23/24 Order Info: 0667-1 - BMP Order Info: [id number] - LIPID DR GLEZ ORDERD BMP ,LIPID,A1C DR GARCIA ORDERD A1C Result Comment: The drugs N-Acetylcysteine and Metamizole may falsely depress this assay. Serum Triglycerides Reference Interval Normal <150 mg/dL Borderline high 150 - 199 mg/dL High 200 - 499 mg/dL Very High > or = 500 mg/dL Performed By: #### L 500.4100 #### [facility] [address] [place], [place], [address] Low density lipoprotein (LDL ) cholesterol measurementOrdered By: Juvencio Glez on 10-30-2024 Cholesterol in LDL [Mass/Vol] 50 mg/dL 0-130 [facility] Potassium measurementOrdered By: Juvencio Glez on 10-30-2024 Potassium [Moles/Vol] 4.1 mmol/L 3.5-5.1 [facility] Serum anion gap measurementO rdered By: Juvencio Glez on 10-30-2024 Anion gap [Moles/Vol] 7 mmol/L 5-15 [facility] Serum or plasma calcium eduardo urement (mass/volume)Ordered By: Juvencio Glez on 10-30-2024 Calcium [Mass/Vol] 9.4 mg/dL 8.5-10.1 [facility] Serum or plasma cholesterol measurement (mass/volume)Ordered By: Juvencio Glez on 10-30-2024 Cholesterol [Mass/Vol] 124 mg/dL <200 [facility] Comment on above: <200 mg/dL Desirable 200-240 mg/dL Borderline >240 mg/dL High Risk Serum or plasma creatinine m easurement (mass/volume)Ordered By: Juvencio Glez on 10-30-2024 Creatinine [Mass/Vol] 0.72 mg/dL 0.70-1.30 [facility] Comment on above: The validity of the calculated GFR & GFRAA in patients over 70 years has not been determined. Clinical correlation is essential. Serum or plasma urea nitroge n measurement (mass/volume)Ordered By: Juvencio Glez on 10-30-2024 Urea nitrogen [Mass/Vol] 12 mg/dL 7-18 [facility] Sodium levelOrdered By: Juvencio Glez on 10-30-2024 Sodium [Moles/Vol] 138 mmol/L 136-145 [facility] Triglycerides measurementOrd ered By: Juvencio Glez on 10-30-2024 Triglyceride [Mass/Vol] 55 mg/dL <199 [facility] Comment on above: The drugs N-Acetylcy steine and Metamizole may falsely depress this assay.Serum Triglycerides Reference Interval Normal <150 mg/dL Borderline high 150 - 199 mg/dL High 200 - 499 mg/dL Very High > or = 500 mg/dL Very low density lipoprotein (VLDL) cholesterol measurementOrdered By: Juvencio Glez on 10-30-2024 VLDL Cholesterol 11 mg/dL 5-40 [facility] CNPNon 10-02-2024 KITTY Telephone (ELLIE) BYRON RODRÍGUEZ ([id number]) 1955 Date Time Provider Department 10/02/24 ANA HUSSEIN During your visit today, we recorded the following information about you: Ana Hussein APRN.CNP 10/02/2024 2:08 PM Signed Distance health visit completed. Please call patient and help them set up a "in office visit" in 3 months. Mail labs. Please call patient, review message, then sign encounter. Rony Mckeon 10/02/2024 2:15 PM Signed LM on VM for patient to call back to schedule 3 months follow up appointment with Ana Hussein. Lab orders mailed to patient. Rony Mckeon October 02, 2024 2:14 PM Liz Everett 10/02/2024 2:44 PM Signed Appointment desk shows scheduled for 12/16/2024 9:00 AM Liz Everett October 02, 2024 2:44 PM Rony Mckeon 10/02/2024 3:22 PM Signed Patient need to schedule another 3 months follow up in March after December. Rony Mckeon October 02, 2024 3:22 PM Rony Mckeon 10/02/2024 3:53 PM Signed Spoke to the patient and scheduled 3 months follow up My Chart VV on 04/02/2024 at 9:00 am with Ana Mckeon October 02, 2024 3:53 PM Allergies As of Date: 10/02/2024 (No Known Allergies) Date Reviewed: 10/25/2023 Reviewed by: Ana Hussein APRN.KAVYA - Fully Assessed Reason for Visit: Future Appointment [256] Prescriptions as of 10/02/2024 - clopidogrel (PLAVIX) 75 mg tablet - metFORMIN ER (GLUCOPHAGE XR) 500 mg 24 hr tablet TAKE 2 TABLETS BEFORE BREAKFAST AND ONE TABLET BEFORE SUPPER - lisinopril (ZESTRIL) 10 mg tablet Take by mouth. - blood sugar diagnostic (ONETOUCH VERIO TEST STRIPS) test strip Use as instructed 1x/day - Blood-Glucose Meter (ONETOUCH VERIO METER) For monitoring sugars 1x/day - lancets (PDC BiotechTOUCH DELICA PLUS LANCET) 33 gauge 1x/day - JARDIANCE 10 mg tablet - METOPROLOL TARTRATE ORAL Take by mouth. - atorvastatin (LIPITOR) 40 mg tablet - phenytoin ER (DILANTIN) 100 mg ER capsule Take by mouth. 200mg every morning; PM dose alternates between 100mg and 200mg every other day. - ASPIRIN ORAL Take 81 mg by mouth once daily. - DOCOSAHEXANOIC ACID/EPA (FISH OIL ORAL) Take by mouth. - MULTIVITAMIN TAB Take one(1) tablet daily. Problem List As Of Date 10/02/2024 Noted Resolved Pancreatitis [K85.90] 06/23/2009 Type 2 diabetes mellitus with hyperglycemia (HC* NSTEMI (non-ST elevated myocardial infarction) *02/16/2018 S/P CABG x 4 [Z95.1] 02/19/2018 Encounter Status:Closed by RONY MCKEON on 10/02/24 [facility] 12 Lead EKG performed by [facility] on 07-28-2024 12 Lead EKG performed by [address] [place] [address] 12 Lead EKG performed by [facility] 07/28/24 1321 MR#: [id number] Acct: [id number] Name: BYRON RODRÍGUEZ Rep #: [id number] : 1955 68 From: Libby Fink NP BOOTH OPERATOR-C Attending Dr: ASHELY Jorge Status: DEP AMB Ordering Dr: Libby Fink NP BOOTH OPERATOR-C Date: 07/28/24 Location: [facility] Sex: M C Admitted: [facility]/12 Lead EKG performed by [facility] ECG Report Interpretation -----Sinus Rhythm -Left atrial enlargement. -Inferior infarct -age undetermined -Poor R-wave progression -nonspecific -consider old anterior infarct. ABNORMAL Electronically signed on 07/31/2024 at 08:37 by Bernardo Louis Software Version [id number] 07/31/24 0842 Date Libby Manzanares Aleks LUND CC: Dr. Juvencio Glez MD Date Dictated: 07/28/24 1321 Date Transcribed: 07/28/241320 Teacher Industrial Arts: DANA Signed Normal [facility] Cardiology Visit Reporton Cardiology Visit Report [facility] [address] [place] [address] OFFICE VISIT Date of Service: 07/28/24 MR#: [id number] Acct: [id number] Name: BYRON RODRÍGUEZ Rep #: [id number] : 1955 Provider: ASHELY bryant Age/Sex: 68/M Location: [facility] Status: Signed HPI HPI History of Present Illness Details: BYRON RODRÍGUEZ, is a 68 M who presents to the office today for a cardiovascular outpatient follow-up. He is a gentleman with a history of coronary artery disease, hyperlipidemia, who underwent four- vessel coronary artery bypass surgery in February 2018 with a left internal mammary artery to the left anterior descending artery, free right internal mammary artery to the diagonal branch, saphenous vein graft to the ramus intermedius and obtuse marginal vessel. He was invited [facility] in June 2024 for non-ST elevated myocardial infarction. He had a heart catheterization on 06/27/2024 that showed patent 3 out of 4 bypass grafts and resulted in successful drug-eluting stent to distal RCA and ostial diagonal 2. Echocardiogram showed an ejection fraction of 50-55% and septal and inferior wall hypokinesis. He acknowledges weekly sporadic chest discomfort. He describes this as a buzzing sensation. This occurs at rest and during times of anxiety. Is located left side of his chest and last for hours. He denies palpitations, bilateral lower extreme edema, or claudication. He acknowledges intermittent shortness of breath with activity and intermittent shortness of breath at rest. He denies orthopnea, cough, or PND. He acknowledges a positional lightheadedness. He denies dizziness, near-syncope, or syncope. He acknowledges fatigue. 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 Required: No Accompanied by: Is patient in pain?: No Allergies No Known Allergies Allergy (Verified 07/28/24 13:25) Medications ???Medication ???Instructions ???Recorded ???Confirmed ???Type aspirin 81 mg tablet,delayed 81 mg PO QDAY heart health 01/15/18 07/28/24 History release (Adult Aspirin Regimen) metformin 500 mg tablet,extended 1,000 mg PO BID diabetes 90 days 01/15/18 07/28/24 History release 24 hr #360 tabs multivitamin 1 tab PO QDAY supplement 01/15/18 07/28/24 History atorvastatin 40 mg tablet 40 mg PO QHS cholesterol 10/16/19 07/28/24 History metoprolol tartrate 25 mg tablet 12.5 mg PO BID heart/BP 10/19/20 07/28/24 History phenytoin sodium extended 100 mg 100 mg PO QPM seizures 10/20/21 07/28/24 History capsule phenytoin sodium extended 100 mg 200 mg PO DAILY seizures 10/20/21 07/28/24 History capsule empagliflozin 10 mg tablet 10 mg PO DAILY diabetes 10/23/23 07/28/24 History (Jardiance) omega 6-mkf-ija-fish oil 1,200 mg 1 cap PO DAILY supplement 06/26/24 07/28/24 History (144 mg-216 mg) capsule (Fish Oil) clopidogrel 75 mg tablet 75 mg PO DAILY 90 days #90 tabs 06/28/24 07/28/24 Rx levomefolate Ca 3 mg-B6 35 1 cap PO BID #180 caps 07/28/24 07/28/24 Rx mg-meB12 2 mg-algal oil 90.314 mg capsule (Metanx (algal oil)) lisinopril 20 mg tablet 20 mg PO QDAY 07/28/24 07/28/24 History Have you fallen in the past year?: No PFSH Medical History (Updated 07/28/24 @ 16:22 by Libby Fink BOOTH OPERATOR, BOOTH OPERATOR-C) Coronary artery disease NSTEMI (non-ST elevated myocardial infarction) (06/26/24) Anxiety Diabetes Pancreatitis Non-smoker Myocardial infarct Chest pain Hypertension Essential hypertension Hyperlipidemia History of non-ST elevation myocardial infarction (NSTEMI) (02/16/18) Atherosclerotic heart disease of [place] coronary artery without angina pectoris (02/2018) GERD (gastroesophageal reflux disease) Dyspnea Chest pain Seizure disorder Type 2 diabetes mellitus without complications Abnormal cardiovascular stress test Surgical History (Updated 07/28/24 @ 13:55 by Libby Fink BOOTH OPERATOR, BOOTH OPERATOR-C) History of coronary artery stent placement S/P PTCA (percutaneous transluminal coronary angioplasty) H/O coronary artery bypass surgery (02/18/18) History of left heart catheterization (01/23/18) History of colonoscopy ( 05/2021) History of cholecystectomy Family History Mother , age 89 Hypertension Father , age 60's from rare neurological condition No problems noted. Brother CAD (coronary artery disease) Stented coronary artery Social History Smoking Status: Never smoker alcohol intake: current alcohol (more content not included)... Normal [facility] HEMOGLOBIN A1C (POC)on 06-02 HbA1c (Bld) [Mass fraction] 7.1 % Abnormal 4.3 - 5.6 % [facility] Comment on above: Location:[facility], [address] [place] [address], [facility] Point of care (POC) Hemoglobin A1c (HGBA1C) testing is intended to assess glucose control and provide a management tool for patients known to have diabetes and their healthcare providers. Target HGBA1C levels may depend on specific clinical circumstances. POC HGBA1C is not intended for use as a diagnostic or screening test; laboratory-based testing should be used for diagnostic purposes. The following information is supplemental and may not be applicable to specific diabetes management situations: The POC device electrical installation supervisor provides a normal range of 4.2% to 6.5% for the HGBA1C POC test. However, the [place] [employer] guidelines indicate that patients with HGBA1C in the range of 5.7% to 6.4% are at increased risk for development of diabetes and that intervention by lifestyle modification may be beneficial. A HGBA1C level greater than or equal to 6.5% is considered diagnostic of diabetes, pending confirmatory testing. Use of HGBA1C testing to evaluate glucose control may not be appropriate for patients with hemoglobin variants or other conditions (e.g. anemia) that alter red blood cell lifespan. Interpretation and review of laboratory results Abnormal [facility] No Panel Informationon 07-16 Thyroid Stimulating Hormone (TSH) 2.19 uIU/mL 0.358-3.74 [facility] Urine Microalbumin/Creatinine Ratio TNP [facility] Comment on above: Test not performed Thin prep Papanicolaou smear with manual screeningon 07-16-2023 Thin prep Papanicolaou smear with manual screening < 5.0 mg/L NO RANGE EST. [facility] Urine creatinine measurement (mass/volume)on 07-16-2023 Creatinine (U) [Mass/Vol] mg/dL NO RANGE EST. [facility] Basophil percentageOrdered B y: Juvencio Glez on 06-21-2023 Chloride [Moles/Vol] 107 mmol/L 98-107 [facility] Glucose [Mass/Vol] 171 mg/dL 74-106 [facility] Comment on above: Fasting Glucose resu lt greater than or equal to 126 mg/dL suggests DIABETES MELLITUS per A.D.A. criteria. Potassium [Moles/Vol] 4.2 mmol/L 3.5-5.1 [facility] Sodium [Moles/Vol] 140 mmol/L 136-145 [facility] Laboratory - Chemistry and C hemistry - challengeOrdered By: Juvencio Glez on 06-21-2023 CO2 [Moles/Vol] 27.0 mmol/L 21.0-32.0 [facility] Urea nitrogen/Creatinine [Mass ratio] 13.2 mg/mg 10-20 [facility] No Panel InformationOrdered By: Juvencio Glez on 06-21-2023 Estimated GFR (MDRD) Amer 132 mL/min >60 [facility] Comment on above: GFR Calc Estimated GFR (MDRD) Non-Af Amer 109 mL/min >60 [facility] Comment on above: Non- GFR Calc Serum or plasma calcium eduardo urement (mass/volume)Ordered By: Juvencio Glez on 06-21-2023 Calcium [Mass/Vol] 9.2 mg/dL 8.5-10.1 [facility] Serum or plasma creatinine m easurement (mass/volume)Ordered By: Juvencio Glez on 06-21-2023 Creatinine [Mass/Vol] 0.76 mg/dL 0.70-1.30 [facility] Comment on above: The validity of the calculated GFR & GFRAA in patients over 70 years has not been determined. Clinical correlation is essential. Serum or plasma urea nitroge n measurement (mass/volume)Ordered By: Juvencio Glez on 06-21-2023 Urea nitrogen [Mass/Vol] 10 mg/dL 7-18 [facility] Thin prep Papanicolaou smear with manual screeningOrdered By: Juvencio Glez on 06-21-2023 Thin prep Papanicolaou smear with manual screening 6 5-15 [facility] Basophil percentageon 2021 Bilirubin [Mass/Vol] 0.30 mg/dL 0.20-1.00 [facility] Comment on above: For patients on eltr ombopag therapy, use of Dimension [place] TBIL is not recommended. Protein [Mass/Vol] 6.7 g/dL 6.4-8.2 [facility] Direct bilirubinon Bilirubin.direct [Mass/Vol] 0.14 mg/dL 0.00-0.30 [facility] - Chemistry and C hemistry - challengeon 08-25-2022 ALP [Catalytic activity/Vol] 71 U/L 45-117 [facility] ALT [Catalytic activity/Vol] 40 U/L 16-61 [facility] Globulin (S) [Mass/Vol] 2.9 g/dL 2.2-4.2 [facility] No Panel Informationon 08-25 Urine Microalbumin/Creatinine Ratio 27.2 mg/g CRE <30 [facility] Serum or plasma albumin eduardo urement (mass/volume)on 08-25-2022 Albumin [Mass/Vol] 3.8 g/dL 3.2-5.0 [facility] Thin prep Papanicolaou smear with manual screeningon 08-25-2022 Thin prep Papanicolaou smear with manual screening 18 U/L 15-37 [facility] Thin prep Papanicolaou smear with manual screening 9.4 mg/L NO RANGE EST. [facility] Urine creatinine measurement (mass/volume)on 08-25-2022 Creatinine (U) [Mass/Vol] 34.70 mg/dL NO RANGE EST. [facility] Whole blood hemoglobin A1c/t otal hemoglobin ratio (mass fraction)on 08-25-2022 HbA1c (Bld) [Mass fraction] 6.8 % 3.8-5.6 [facility] Comment on above: Normal < 5.7 % Predi abetic 5.7 - 6.4 % Diabetic >or= 6.5 % Please note range changes. HEMOGLOBIN A1C (POC)on 08-17 HbA1c (Bld) [Mass fraction] 7.4 % Abnormal 4.2 - 5.6 % [facility] Absolute lymphocyte counton 07-05-2022 Lymphocytes Auto (Unsp spec) [#/Vol] 1.27 10*3/uL 0.83-4.51 [facility] Work Phone: Basophil percentageon 2021 Basophils/100 WBC (Bld) 0.7 % 0-1 [facility] Work Phone: Chloride [Moles/Vol] 103 mmol/L 98-107 [facility] Work Phone: Cholesterol [Mass/Vol] 126 mg/dL <200 [facility] Work Phone: Comment on above: <200 mg/dL Desirable 200-240 mg/dL Borderline >240 mg/dL High Risk Eosinophils/100 WBC (Bld) 11.9 % 0-5 [facility] Work Phone: Glucose [Mass/Vol] 176 mg/dL 74-106 [facility] Work Phone: Comment on above: Fasting Glucose resu lt greater than or equal to 126 mg/dL suggests DIABETES MELLITUS per A.D.A. criteria. Neutrophils (Bld) [#/Vol] 2.2 10*3/uL 2.0-7.7 [facility] Work Phone: Neutrophils/100 WBC (Bld) 50.5 % 47-70 [facility] Work Phone: Potassium [Moles/Vol] 3.8 mmol/L 3.5-5.1 [facility] Work Phone: Sodium [Moles/Vol] 138 mmol/L 136-145 [facility] Work Phone: Testosterone [Mass/Vol] 514.56 ng/dL [facility] Work Phone: Comment on above: CENTRAL 90% REFERENC E RANGES MALE AGE <50 197.44 - 669.58 ng/dL MALE AGE > or = 50 187.72 - 684.19 ng/dL FEMALE AGE <50 8.38 - 35.01 ng/dL FEMALE AGE > or = 50 <7.00 - 35.92 ng/dL Effective as of 05/03/21 Triglyceride [Mass/Vol] 50 mg/dL <199 [facility] Work Phone: Comment on above: The drugs N-Acetylcy steine and Metamizole may falsely depress this assay.Serum Triglycerides Reference Interval Normal <150 mg/dL Borderline high 150 - 199 mg/dL High 200 - 499 mg/dL Very High > or = 500 mg/dL WBC (Bld) [#/Vol] 4.4 10*3/uL 4.4-11.0 [facility] Work Phone: Blood erythrocytes count (nu mber/volume)on 07-05-2022 RBC (Bld) [#/Vol] 4.78 10*6/uL 4.6-6.2 [facility] Work Phone: Blood hemoglobin measurement (mass/volume)on 07-05-2022 Hemoglobin (Bld) [Mass/Vol] 14.5 g/dL 13.0-16.5 [facility] Work Phone: Blood lymphocytes/100 leukoc yteson 07-05-2022 Lymphocytes/100 WBC (Bld) 29.1 % 19-41 [facility] Work Phone: Blood monocytes/100 leukocyt eson 07-05-2022 Monocytes/100 WBC (Bld) 7.6 % 0-10 [facility] Work Phone: Blood platelet mean volumeon 07-05-2022 Platelet mean volume (Bld) [Entitic vol] 9.3 fL 6.2-12.0 [facility] Work Phone: Determination of erythrocyte mean corpuscular volume (MCV)on 07-05-2022 MCV (RBC) [Entitic vol] 91.0 fL 80-94 [facility] Work Phone: Hematocrit Auto (Bld) [Volum e fraction]on 07-05-2022 Hematocrit (Bld) [Volume fraction] 43.5 % 40-54 [facility] Work Phone: Laboratory - Chemistry and C hemistry - challengeon 07-05-2022 CO2 [Moles/Vol] 27.0 mmol/L 21.0-32.0 [facility] Work Phone: Urea nitrogen/Creatinine [Mass ratio] 12.7 mg/mg 10-20 [facility] Work Phone: Laboratory - Hematology and Cell countson 07-05-2022 Erythrocyte distribution width (RBC) [Entitic vol] 41.6 fL 35.1-43.9 [facility] Work Phone: Erythrocyte distribution width (RBC) [Ratio] 12.4 % 11.6-14.6 [facility] Work Phone: Immature granulocytes/100 WBC (Bld) 0.200 % 0.0-0.9 [facility] Work Phone: Comment on above: IG% - Immature Granu locytes (promyelocytes, myelocytes and metamyelocytes) > 1% indicates that a LEFT SHIFT is Present. MCH (RBC) [Entitic mass] 30.3 pg 27.0-32.0 [facility] Work Phone: Nucleated RBC/100 WBC (Bld) [Ratio] 0 % 0-5 [facility] Work Phone: MCHC Auto (RBC) [Mass/Vol]on 07-05-2022 MCHC (RBC) [Mass/Vol] 33.3 g/dL 32-36 [facility] Work Phone: No Panel Informationon 07-05 Estimated GFR (MDRD) Amer 142 mL/min >60 [facility] Work Phone: Comment on above: GFR Calc Estimated GFR (MDRD) Non-Af Amer 118 mL/min >60 [facility] Work Phone: Comment on above: Non- GFR Calc Prostate Specific Antigen Screen 0.74 ng/mL 0.00-4.00 [facility] Work Phone: Comment on above: This test was perfor med using the TPSA assay method for [employer] chemistry system. Values obtained with differentassay methods cannot be used interchangably.When changing PSA assays in the course of monitoring apatient, additional sequential testing should be carriedout to confirm baseline values. Thyroid Stimulating Hormone (TSH) 1.95 uIU/mL 0.358-3.74 [facility] Work Phone: Platelets bldon 07-05-2022 Platelets (Bld) [#/Vol] 180 10*3/uL 150-450 [facility] Work Phone: Serum or plasma calcium eduardo urement (mass/volume)on 07-05-2022 Calcium [Mass/Vol] 9.1 mg/dL 8.5-10.1 [facility] Work Phone: Serum or plasma cholesterol in HDL measurement (mass/volume)on 07-05-2022 Cholesterol in HDL [Mass/Vol] 54 mg/dL >40 [facility] Work Phone: Comment on above: The drugs N-Acetylcy steine and Metamizole may falsely depress this assay. Reference Range HDL <40 mg/dL Low HDL Cholesterol HDL >or= 60 mg/dL High HDL Cholesterol Serum or plasma cholesterol in VLDL measurement (mass/volume)on 07-05-2022 Cholesterol in VLDL [Mass/Vol] 10 mg/dL 5-40 [facility] Work Phone: Serum or plasma creatinine m easurement (mass/volume)on 07-05-2022 Creatinine [Mass/Vol] 0.71 mg/dL 0.70-1.30 [facility] Work Phone: Comment on above: The validity of the calculated GFR & GFRAA in patients over 70 years has not been determined. Clinical correlation is essential. Serum or plasma low density lipoprotein (LDL) cholesterol measurement (mass/volume)on 07-05-2022 Cholesterol in LDL [Mass/Vol] 62 mg/dL 0-130 [facility] Work Phone: Serum or plasma phenytoin me asurement (mass/volume)on 07-05-2022 Phenytoin [Mass/Vol] 5.1 mL 10.0-20.0 [facility] Work Phone: Serum or plasma urea nitroge n measurement (mass/volume)on 07-05-2022 Urea nitrogen [Mass/Vol] 9 mg/dL 7-18 [facility] [facility] Work Phone: Thin prep Papanicolaou smear with manual screeningon 07-05-2022 Thin prep Papanicolaou smear with manual screening 8 5-15 [facility] Work Phone: Whole blood hemoglobin A1c/t otal hemoglobin ratio (mass fraction)on 02-13-2022 HbA1c (Bld) [Mass fraction] 6.6 % 3.8-5.6 [facility] Work Phone: Comment on above: Normal < 5.7 % Predi abetic 5.7 - 6.4 % Diabetic >or= 6.5 % Please note range changes. Comprehensive Panelon 2018 ALP [Catalytic activity/Vol] 93 U/L Normal 45-117 [facility] Comment on above: Performed By: #### P 14 #### [facility] [address] [place], [place] [address] Bilirubin [Mass/Vol] 0.3 mg/dL Normal 0.2-1.0 [facility] Comment on above: Performed By: #### P 14 #### [facility] [address] [place], [place] [address] Protein [Mass/Vol] 7.3 g/dL Normal 6.4-8.2 [facility] Comment on above: Performed By: #### P 14 #### [facility] [address] [place], [place] [address] AST [Catalytic activity/Vol] 24 U/L Normal 15-37 [facility] Comment on above: Performed By: #### P 14 #### [facility] [address] [place], [place] [address] Creatinine [Mass/Vol] 0.67 mg/dL Normal 0.67-1.17 [facility] Comment on above: Performed By: #### P 14 #### [facility] [address] [place], [place] [address] ALT [Catalytic activity/Vol] 42 U/L Normal 12-78 [facility] Comment on above: Performed By: #### P 14 #### [facility] [address] [place], [place] [address] Glucose [Mass/Vol] 84 mg/dL Normal 70-99 [facility] Comment on above: Performed By: #### P 14 #### [facility] [address] [place], [place] [address] Albumin [Mass/Vol] 4.6 g/dL Normal 3.4-5.0 [facility] Comment on above: Performed By: #### P 14 #### [facility] [address] [place], [place] [address] Anion gap [Moles/Vol] 10 mmol/L Normal 8-16 [facility] Comment on above: Performed By: #### P 14 #### [facility] [address] [place], [place] [address] Calcium [Mass/Vol] 9.2 mg/dL Normal 8.5-10.1 [facility] Comment on above: Performed By: #### P 14 #### [facility] [address] [place], [place] [address] CO2 [Moles/Vol] 28 mmol/L Normal 21-32 [facility] Comment on above: Performed By: #### P 14 #### [facility] [address] [place], [place] [address] Urea nitrogen [Mass/Vol] 12 mg/dL Normal 7-18 [facility] Comment on above: Performed By: #### P 14 #### [facility] [address] [place], [place] [address] Chloride [Moles/Vol] 106 mmol/L Normal 98-107 [facility] Comment on above: Performed By: #### P 14 #### [facility] [address] [place], [place] [address] Potassium [Moles/Vol] 4.0 mmol/L Normal 3.5-5.1 [facility] Comment on above: Performed By: #### P 14 #### [facility] [address] [place] [address] Sodium [Moles/Vol] 140 mmol/L Normal 136-145 [facility] Comment on above: Performed By: #### P 14 #### [facility] [address] [place], [place] [address] Free Thyroxineon 03-17-2019 Free T4 [Mass/Vol] 0.88 ng/dL Normal 0.76-1.46 [facility] Comment on above: Performed By: #### F T4 #### [place] [address] MDRD GFRon 03-17-2019 GFR/1.73 sq M predicted among non-blacks MDRD (S/P/Bld) [Vol rate/Area] mL/min/{1.73_m2} Normal >60mL/min/1.7 3m2 [facility] Comment on above: Result Comment: If t he patient is , multiply the result by 1.210. Performed By: #### G FR #### [facility] [address] [place], [place] [address] Microalb/Creat, Randomon MA/Creat Ratio 29.37 mg/g Normal 0.10-30.00 [facility] Comment on above: Performed By: #### M ALBR #### [facility] 1 [place] [id number] Microalbumin,Random 2.20 mg/dL Normal 0.20-2.50 [facility] Comment on above: Performed By: #### M ALBR #### [facility] [address] [place], [place] [address] Creatinine,Urine 74.9 mg/dL Normal [facility] Comment on above: Performed By: #### M ALBR #### [facility] [address] [place], [place] [address] TSH, 3rd generationon 2018 TSH, 3rd generation 1.570 uIU/mL Normal 0.358-3.740 [facility] Comment on above: Performed By: #### T SH3 #### [facility] [address] [place], [place] [address] PROGRESSon 05-28-2017 PROGRESS HNO ID: [id number]: Ana Kirkpatrick ([facility]) McCartneyService: (none)Author Type: Nurse PractitionerType: Progress NotesFiled: 05/28/2017 8:25 AMNote Text:HPI Comments: Important Lab History:HBA1C: 07/2016: 6.1%, 08/2016: 6.8%Thyroid Function Testing:Renal Function Testin08/2016: Creatinine 0.72Urine for Microalbumin:Lipid Profile: 08/2016: TC 169, HDL 61, LDL 96 TG 58Liver Profile:Dilated Eye Exam:Orals:Review of SystemsConstitutional : Positive for diaphoresis. Negative for chills, fever,malaise/fatigue and weight loss.HENT: Negative for congestion, nosebleeds and sore throat.Eyes: Negative for blurred vision, pain and discharge.Respiratory : Negative for cough, hemoptysis, sputum production, shortnessof breath and wheezing.Cardiovascul ar: Negative for chest pain, palpitations, orthopnea and legswelling.Gastroint estinal: Negative for abdominal pain, blood in stool,constipation, diarrhea, heartburn, nausea and vomiting.Genitourinar y: Negative for dysuria, frequency, hematuria and urgency.Musculoskelet al: Negative for back pain, joint pain and myalgias.Skin: Negative for itching and rash.Neurological: Negative for dizziness, tingling, loss of consciousness andheadaches.Endo/Hem e/Allergies: Negative for polydipsia.Psychiatri c/Behavioral: Negative for depression and suicidal ideas. Thepatient is not nervous/anxious and does not have insomnia.PAST MEDICAL HISTORYDiagnosis Date- Hemorrhage of gastrointestinal tract, unspecified- Internal hemorrhoids without mention of complication- Other convulsions none since 1975- Pancreatitis- Seizures (HCC)- Type 2 diabetes mellitus with hyperglycemia (HCC)PAST SURGICAL HISTORY04/15/08: COLONOSCOP W/ OR W/O [facility] SPEC: LAP CHOLECYSTECT/CHOLANGI OGRAPHYNo family history on file.Social History Marital status: Spouse name: Years of education: Number of children:Social History Main Topics Smoking status: Never Smoker Smokeless status: Current User Types: Chew Alcohol use: Yes Comment: 1x/month beerCurrent MedsJANUMET XR 50-1,000 mg [id number] sodium extended(DILANTIN KAPSEAL 100 MG CAP) Take one(1) tablettwo(2) times daily.MULTIVITAMIN TAB Take one(1) tablet daily.There were no vitals taken for this visit.Physical Exam Normal [facility] Vital Signs Date Time Vital Sign Value Performing Clinician Faci lity 07-09-2025 08:19-0400 Body mass index (BMI) [Ratio] 22.1 kg/m2 Dr. Juvencio Glez MD Work Phone: [facility] 07-09-2025 08:19-0400 Body weight 62.[address] Juvencio Glez MD Work Phone: [facility] 07-09-2025 08:19-0400 Diastolic blood pressure 70 mm[Hg] Dr. Juvencio Glez MD Work Phone: [facility] 07-09-2025 08:19-0400 Heart rate 51 /min Dr. Juvencio Glez MD Work Phone: [facility] 07-09-2025 08:19-0400 Respiratory rate 18 /min Dr. Juvencio Glez MD Work Phone: [facility] 07-09-2025 08:19-0400 SaO2% (BldA) [Mass fraction] 100 % Dr. Juvencio Glez MD Work Phone: [facility] 07-09-2025 08:19-0400 Systolic blood pressure 125 mm[Hg] Dr. Juvencio Glez MD Work Phone: [facility] 01-06-2025 11:10-0400 Body height 167.[address] Juvencio Glez MD Work Phone: [facility] 01-06-2025 11:10-0400 Body mass index (BMI) [Ratio] 22.7 kg/m2 Dr. Juvencio Glez MD Work Phone: [facility] 01-06-2025 11:10-0400 Body weight 63.[address] Juvencio Glez MD Work Phone: [facility] 01-06-2025 11:10-0400 Diastolic blood pressure 77 mm[Hg] Dr. Juvencio Glez MD Work Phone: [facility] 01-06-2025 11:10-0400 Heart rate 64 /min Dr. Juvencio Glez MD Work Phone: [facility] 01-06-2025 11:10-0400 Respiratory rate 16 /min Dr. Juvencio Glez MD Work Phone: [facility] 01-06-2025 11:10-0400 Systolic blood pressure 145 mm[Hg] Dr. Juvencio Glez MD Work Phone: [facility] 12-16-2024 08:45-0400 Body height 167.6 cm Ana Hussein APRN.HOUSE PAINTER Work Phone: [facility] 12-16-2024 08:45-0400 Body mass index (BMI) [Ratio] 22.47 kg/m2 Ana Hussein APRN.HOUSE PAINTER Work Phone: [facility] 12-16-2024 08:45-0400 Body weight 63.14 kg Ana Hussein APRN.HOUSE PAINTER Work Phone: [facility] 12-16-2024 08:45-0400 Diastolic blood pressure 72 mm[Hg] Ana Hussein APRN.HOUSE PAINTER Work Phone: [facility] 12-16-2024 08:45-0400 Systolic blood pressure 122 mm[Hg] Ana Hussein APRN.HOUSE PAINTER Work Phone: [facility] 10-08-2024 00:41-0500 Body weight 64.[address] Juvencio Glez MD Work Phone: [facility] 10-03-2024 09:35-0500 Body weight 64.[address] Juvencio Glez MD Work Phone: [facility] 06-02-2024 14:47-0400 Body height 167.6 cm Ana Hussein APRN.HOUSE PAINTER Work Phone: [facility] 06-02-2024 14:47-0400 Body mass index (BMI) [Ratio] 24.18 kg/m2 Ana Hussein APRN.HOUSE PAINTER Work Phone: [facility] 06-02-2024 14:47-0400 Body weight 67.95 kg Ana Hussein APRN.HOUSE PAINTER Work Phone: [facility] 06-02-2024 14:47-0400 Diastolic blood pressure 82 mm[Hg] Ana Hussein APRN.HOUSE PAINTER Work Phone: [facility] 06-02-2024 14:47-0400 Systolic blood pressure 150 mm[Hg] Ana Hussein APRN.HOUSE PAINTER Work Phone: [facility] 10-24-2022 11:21-0500 Body height 167.[address] Libby Gomez Work Phone: [facility] 10-24-2022 11:21-0500 Body mass index (BMI) [Ratio] 25.4 kg/m2 Dr. Libby Gomez Work Phone: [facility] 10-24-2022 11:21-0500 Body weight 71.[address] Libby Gomez Work Phone: [facility] 10-24-2022 11:21-0500 Diastolic blood pressure 66 mm[Hg] Dr. Libby Gomez Work Phone: [facility] 10-24-2022 11:21-0500 Heart rate 55 /min Dr. Libby Gomez Work Phone: [facility] 10-24-2022 11:21-0500 Respiratory rate 16 /min Dr. Libby Gomez Work Phone: [facility] 10-24-2022 11:21-0500 Systolic blood pressure 144 mm[Hg] Dr. Libby Gomez Work Phone: [facility] 08-17-2022 15:35-0500 Body height 167.6 cm Ana Hussein APRN.HOUSE PAINTER Work Phone: [facility] 08-17-2022 15:35-0500 Body weight 72.03 kg Ana Hussein APRN.HOUSE PAINTER Work Phone: [facility] 08-17-2022 15:35-0500 Diastolic blood pressure 66 mm[Hg] Ana Hussein BLUEPRINT PROCESSOR.HOUSE PAINTER Work Phone: [facility] 08-17-2022 15:35-0500 Systolic blood pressure 118 mm[Hg] Ana Hussein APRN.HOUSE PAINTER Work Phone: [facility] Encounters Encounter Date Encounter Type Care Provider Facility Start: 08-13-2025 End: 08-13-2025 ambulatory JUVENCIO GLEZ Facility:[facility] Start: 07-09-2025 End: 07-09-2025 Patient encounter procedure Libby Fink NP-Cl -[facility] Work Phone: Start: 07-09-2025 End: 07-09-[address] Juvencio Glez MD Work Phone: -[facility] Start: 06-24-2025 End: 06-24-[address] Juvencio Glez MD Work Phone: -[facility] Start: 06-24-2025 End: 06-24-[address] Kade Curtis MD -[facility] [place] Work Phone: Start: 06-23-2025 End: 06-24-2025 ambulatory Ana Hussein APRN.HOUSE PAINTER Work Phone: [facility] Start: 06-23-2025 End: 06-23-2025 Patient encounter procedure Ana Hussein APRN.HOUSE PAINTER Work Phone: [facility] Comment on above: Test Supplies Start: 06-11-2025 End: 06-11-[address] Juvencio Glez MD Work Phone: -[facility] Start: 06-11-2025 End: 06-11-[address] Juvencio Glez MD -[facility] Work Phone: Start: 06-11-2025 End: 06-11-2025 ambulatory Juvencio Glez Facility:[facility] Start: 06-09-2025 End: 06-09-[address] Juvencio Glez MD Work Phone: -[facility] [place] Start: 06-09-2025 End: 06-09-2025 Patient encounter procedure Ana Hussein BOOTH OPERATOR-C -[facility] [place] Work Phone: Start: 06-09-2025 End: 06-09-2025 ambulatory Ana Hussein Facility:[facility] Start: 05-28-2025 End: 05-28-2025 Telephone encounter Ana Hussein APRN.HOUSE PAINTER Work Phone: [facility] Comment on above: Future Appointment Start: 05-28-2025 End: 05-28-2025 Patient encounter procedure Ana Hussein APRN.HOUSE PAINTER Work Phone: [facility] Comment on above: Type 2 diabetes sharlene itus with hyperglycemia, without long-term current use of insulin (HCC) (Primary Dx) A1C lab Start: 05-28-2025 End: 05-28-2025 Telemedicine consultation with patient Anarishi Kirkpatrick Juan KAMARAHOUSE PAINTER Work Phone: [facility] Start: 05-28-2025 End: 05-28-2025 ambulatory Ana Hussein APRN.HOUSE PAINTER Work Phone: [facility] Start: 05-27-2025 End: 05-28-2025 ambulatory Ana Hussein BLUEPRINT PROCESSOR.HOUSE PAINTER Work Phone: [facility] Start: 05-27-2025 End: 05-28-2025 Patient encounter procedure Ana Hussein BLUEPRINT PROCESSOR.HOUSE PAINTER Work Phone: [facility] Comment on above: Information for vide o visit. Start: 02-05-2025 End: 02-05-[address] Juvencio Glez MD Work Phone: [facility] Work Phone: Start: 02-05-2025 End: 02-05-[address] Juvencio Glez MD -[facility] Work Phone: Start: 02-05-2025 End: 02-05-2025 ambulatory Juvencio Glez Facility:[facility] Start: 01-29-2025 End: 01-29-[address] Juvencio Glez MD Work Phone: [facility] Work Phone: Start: 01-29-2025 End: 01-29-[address] Juvencio Glez MD Work Phone: -[facility] Work Phone: Start: 01-29-2025 End: 01-29-2025 ambulatory Sneha Crockett Facility:[facility] Start: 01-26-2025 End: 01-26-2025 ambulatory Ana Hussein BLUEPRINT PROCESSOR.HOUSE PAINTER Work Phone: [facility] Start: 01-26-2025 End: 01-26-2025 Patient encounter procedure Ana Hussein APRN.HOUSE PAINTER Work Phone: [facility] Comment on above: Prescription Start: 01-06-2025 End: 01-06-2025 Patient encounter procedure Libby LUND -[facility] Work Phone: Start: 01-06-2025 End: 01-06-2025 ambulatory Libby Fink BOOTH OPERATOR Facility:[facility] Start: 12-22-2024 End: 12-22-2024 Telephone encounter Ana Hussein APRN.HOUSE PAINTER Work Phone: [facility] Start: 12-16-2024 End: 12-16-2024 Patient encounter procedure Ana Hussein APRN.HOUSE PAINTER Work Phone: [facility] Comment on above: Type 2 diabetes sharlene itus with hyperglycemia, without long-term current use of insulin (HCC) (Primary Dx); Malaise and fatigue Start: 12-16-2024 End: 12-16-2024 ambulatory ANA HUSSEIN Facility:[facility] Start: 11-18-2024 ambulatory Suzette Cr Facility:[facility] Start: 10-31-2024 End: 10-31-2024 Telephone encounter Ana Hussein APRN.HOUSE PAINTER Work Phone: [facility] Comment on above: Results, Lab Start: 10-30-2024 End: 10-30-[address] Juvencio Glez MD -Laboratory, [place] Work Phone: Start: 10-30-2024 End: 10-30-2024 ambulatory Juvencio Glez Facility:[facility] Start: 10-17-2024 End: 11-07-2024 ambulatory Suzette Hankins Facility:[facility] Start: 10-17-2024 End: 11-07-[address] Suzette Hankins MD -[facility] Work Phone: Start: 10-06-2024 End: 10-07-2024 ambulatory Suzette Hankins Facility:[facility] Start: 10-06-2024 End: 10-07-[address] Suzette Hankins MD -[facility] Work Phone: Start: 10-02-2024 End: 10-02-2024 Chart abstracting Ana Hussein APRN.HOUSE PAINTER Work Phone: [facility] Start: 10-02-2024 End: 10-02-2024 Patient encounter procedure Ana Hussein APRN.CNP Work Phone: [facility] Comment on above: Type 2 diabetes sharlene itus with hyperglycemia, without long-term current use of insulin (HCC) (Primary Dx) Start: 10-02-2024 End: 10-02-2024 Telemedicine consultation with patient Ana Hussein APRN.HOUSE PAINTER Work Phone: [facility] Start: 10-02-2024 End: 10-02-2024 Telephone encounter Ana Hussein APRN.KAVYA Work Phone: [facility] Comment on above: Future Appointment Start: 10-02-2024 End: 10-02-2024 ambulatory ANA HUSSEIN Facility:[facility] Start: 09-03-2024 End: 09-06-2024 ambulatory Suzette Cr Facility:[facility] Start: 08-26-2024 ambulatory Suzette Cr Facility:[facility] Start: 08-26-2024 End: 08-26-2024 ambulatory Suzette Cr Facility:[facility] Start: 08-06-2024 End: 08-07-2024 ambulatory Suzette Cr Facility:[facility] Start: 07-28-2024 End: 07-28-2024 ambulatory Libby Fink BOOTH OPERATOR Facility:[facility] Start: 07-22-2024 End: 07-22-2024 ambulatory Ana Hussein APRN.HOUSE PAINTER Work Phone: [facility] Start: 07-22-2024 End: 07-22-2024 Patient encounter procedure Ana Hussein APRN.HOUSE PAINTER Work Phone: [facility] Comment on above: Medications Start: 06-20-2024 End: 06-20-2024 Refill Ana Hussein APRN.CNP Work Phone: [facility] Comment on above: Refill Request Start: 06-12-2024 End: 06-12-2024 Telephone encounter Ana Hussein APRN.HOUSE PAINTER Work Phone: [facility] Comment on above: Results (Labs) Start: 06-02-2024 End: 06-02-2024 Patient encounter procedure Ana Hussein APRN.HOUSE PAINTER Work Phone: [facility] Comment on above: Type 2 diabetes sharlene itus with hyperglycemia, without long-term current use of insulin (HCC) (Primary Dx) Start: 06-02-2024 End: 06-02-2024 Chart abstracting Ana Hussein APRN.HOUSE PAINTER Work Phone: [facility] Start: 05-11-2024 ambulatory Ana Hussein APRN.HOUSE PAINTER Work Phone: [facility] Start: 05-11-2024 Patient encounter procedure Ana Hussein APRN.HOUSE PAINTER Work Phone: [facility] Comment on above: Tingling in feet Start: 04-25-2024 ambulatory Ana Hussein APRN.HOUSE PAINTER Work Phone: [facility] Start: 04-25-2024 Patient encounter procedure Ana Hussein APRN.HOUSE PAINTER Work Phone: [facility] Comment on above: Appointment Start: 09-12-2023 Refill Ana Hussein APRN.HOUSE PAINTER Work Phone: [facility] Comment on above: Refill Request Start: 07-16-2023 End: 07-16-2023 ambulatory [facility] Work Phone: Start: 07-16-2023 End: 07-16-2023 Patient encounter procedure [facility] Work Phone: Start: 06-21-2023 End: 06-21-2023 Patient encounter procedure [facility] Work Phone: Start: 05-29-2023 Refill Ana Hussein APRN.HOUSE PAINTER Work Phone: [facility] Comment on above: Med Change Request ( testing supplies) Start: 05-27-2023 ambulatory Ana Hussein APRN.HOUSE PAINTER Work Phone: [facility] Comment on above: Supplies Start: 04-11-2023 Refill Ana Hussein APRN.HOUSE PAINTER Work Phone: [facility] Comment on above: Refill Request (Metf ormin) Start: 04-05-2023 End: 04-05-2023 ambulatory Ana Cain Hussein APRN.HOUSE PAINTER Work Phone: [facility] Comment on above: Type 2 diabetes sharlene itus with hyperglycemia, without long-term current use of insulin (HCC) (Primary Dx) Start: 04-05-2023 End: 04-05-2023 Telemedicine consultation with patient Ana Kirkpatrick Juan PARKER.HOUSE PAINTER Work Phone: [facility] Start: 04-01-2023 ambulatory Ana Hussein APRN.HOUSE PAINTER Work Phone: [facility] Comment on above: Lowering A1C Start: 03-15-2023 Chart abstracting Ana Hussein APRN.HOUSE PAINTER Work Phone: [facility] Start: 11-02-2022 Non-patient / Non-visit Dr. Catalina Gomez Work Phone: [facility] Start: 11-02-2022 Non-patient / Non-visit Dr. Catalina Gomez Work Phone: [facility] Start: 11-02-2022 End: 11-02-[address] Libby Gomze Work Phone: [facility] Work Phone: Start: 11-02-2022 End: 11-02-[address] Libby Gomez Work Phone: [facility] Start: 10-24-2022 End: 10-24-[address] Libby Gomez Work Phone: [facility] Start: 10-05-2022 Refill Ana Hussein APRN.HOUSE PAINTER Work Phone: [facility] Comment on above: Refill Request (Metf ormin ) Start: 08-25-2022 End: 08-25-[address] Libby Gomez Work Phone: [facility] Start: 08-22-2022 Get Medical Advice Ana Hussein APRN.HOUSE PAINTER Work Phone: [facility] Comment on above: Labs ordered Start: 08-17-2022 End: 08-17-2022 Patient encounter procedure Ana Hussein APRN.HOUSE PAINTER Work Phone: [facility] Comment on above: Type 2 diabetes sharlene itus with hyperglycemia, without long-term current use of insulin (HCC) (Primary Dx) Start: 08-17-2022 Chart abstracting Ana Hussein APRN.HOUSE PAINTER Work Phone: [facility] Start: 07-05-2022 End: 07-05-2022 ambulatory [facility] Work Phone: Start: 07-05-2022 End: 07-05-2022 Patient encounter procedure [facility] Start: 06-26-2022 Refill Ana Hussein APRN.HOUSE PAINTER Work Phone: [facility] Comment on above: Refill Request Start: 05-25-2022 ambulatory Ana Hussein APRN.HOUSE PAINTER Work Phone: [facility] Start: 05-25-2022 Patient encounter procedure Ana Hussein APRN.HOUSE PAINTER Work Phone: [facility] Comment on above: Appointment Start: 04-27-2022 Refill Ana Hussein APRN.HOUSE PAINTER Work Phone: [facility] Comment on above: Refill Request (Metf ormin ) Start: 02-17-2022 End: 02-17-2022 ambulatory Ana Hussein APRN.HOUSE PAINTER Work Phone: [facility] Comment on above: Type 2 diabetes sharlene itus with hyperglycemia, without long-term current use of insulin (HCC) (Primary Dx) Start: 02-17-2022 End: 02-17-2022 Telemedicine consultation with patient Ana Cain Hussein APRN.HOUSE PAINTER Work Phone: [facility] Start: 02-17-2022 Telephone encounter Ana Hussein APRN.HOUSE PAINTER Work Phone: [facility] Comment on above: Future Appointment Start: 02-13-2022 End: 02-13-2022 Patient encounter procedure [facility] Start: 01-30-2022 ambulatory Ana Hussein APRN.HOUSE PAINTER Work Phone: [facility] Comment on above: Lab work Start: 09-15-2021 End: 09-15-2021 ambulatory FARHAN LEMOS [facility] Procedures Date Procedure Procedure Detail Performing Clinician Start: 06-24-[address] Juvencio Glez MD Work Phone: Start: 06-11-[address] e detection Dr. Juvencio Glez MD Work Phone: Start: 06-11-2025 Measurement of occul t blood in gastric fluid specimen Dr. Juvencio Glez MD Work Phone: Start: 06-11-2025 Measurement of occul t blood in stool specimen using immunoassay Dr. Juvencio Glze MD Work Phone: Start: 06-11-2025 Ova [place] parasites identification Dr. Juvencio Glez MD Work Phone: Start: 06-11-2025 Ova&parasites direct smears concentration & id Dr. Juvencio Glez MD Work Phone: Start: 12-16-2024 [facility]OOK[facility] ON [employer]AND [facility] ovider Start: 12-16-2024 Hemoglobin A1c/Hemoglobin.total in Blood Ana Cain Hussein BLUEPRINT PROCESSOR.HOUSE PAINTER Work Phone: Start: 06-02-2024 Hemoglobin A1c/Hemoglobin.total in Blood Ana Kirkpatrick Juan BLUEPRINT PROCESSOR.HOUSE PAINTER Work Phone: Start: 11-02-2022 Radionuclide imaging of perfusion of myocardium under exercise stress Dr. Libby Gomez Work Phone: Start: 08-17-2022 Hemoglobin A1c/Hemoglobin.total in Blood Ana Cain Hussein BLUEPRINT PROCESSOR.HOUSE PAINTER Work Phone: Start: 05-31-2021 Colonoscopy Ana Noel garcia BLUEPRINT PROCESSOR.HOUSE PAINTER Work Phone: Start: 02-19-2018 History of coronary artery bypass grafting S/P CABG x 4 Ana Juan BLUEPRINT PROCESSOR.HOUSE PAINTER Work Phone: Start: 02-18-2018 History of coronary artery bypass grafting H/O coronary artery bypass surgery Libby Fink BOOTH OPERATOR-Cl Comment on above: CABG x 4 : KOHLI-LAD, Free ELISE-D1, SVG-Ramus, SVG-OM1 02/18/2018 History of placement of stent for coronary artery disease History of coronary artery stent placement Dr. Juvencio Glez MD Work Phone: Comment on above: RAJENDRA to distal RCA an d ostial diagonal 2 on 06/27/2024; History of placement of stent for coronary artery disease History of coronary artery stent placement Libby Fink BOOTH OPERATORNick History of placement of stent for coronary artery disease History of coronary artery stent placement Libby Fink BOOTH OPERATORNick Plan of Treatment Date Care Activity Detail Author Start: 05-31-2026 Colonoscopy COLONOSCOPY [facility] Start: 05-31-2026 COLORECTAL CANCER SCREENING COLORECTAL CANCER SCREENING [facility] Start: 05-31-2026 Screening for malign ant neoplasm of colon [facility] Start: 12-03-2025 End: 12-03-2025 Follow-up encounter 12/03/2025 12:00 PM EST [facility] [address] [place] [address] Ana Hussein, BLUEPRINT PROCESSOR.HOUSE PAINTER [address] [place] [address] DM - 3 month follow up [facility] Comment on above: DM - 3 month follow up Start: 08-13-2025 End: 08-13-2025 Patient encounter procedure 08/13/2025 10:30 AM EST Office Visit [facility] [address] [place] [address] Ana Hussein, BLUEPRINT PROCESSOR.HOUSE PAINTER [address] [place] [address] DM [facility] Comment on above: DM Start: 07-07-2025 End: 07-07-2025 Patient encounter procedure 07/07/2025 10:30 AM EDT Office Visit [facility] [address] [place] [address] Ana Hussein, BLUEPRINT PROCESSOR.HOUSE PAINTER [address] [place] [address] DM [facility] Comment on above: DM Start: 06-18-2025 Hemoglobin A1c measurement HbA1C [facility] Start: 06-11-2025 Ova and Parasites Ova and Parasites [facility] Start: 06-08-2025 Influenza vaccination Influenza Vacc ine (#1) [facility] Start: 06-02-2025 Diabetic foot examination Diabetic Foot Exam [facility] Start: 05-28-2025 End: 08-27-2025 Hemoglobin A1c in Blood HEMOGLOBIN A1C Lab Routine Type 2 diabetes mellitus with hyperglycemia, without long-term current use of insulin (HCC) Expected: 05/28/2025, Expires: 08/27/2025 [facility] Work Phone: Comment on above: Expected: 05/28/2025 , Expires: 08/27/2025 Start: 05-28-2025 End: 05-28-2025 Patient encounter procedure 05/28/2025 11:30 AM EDT [facility] [address] [place] [address] Ana Hussein, BLUEPRINT PROCESSOR.HOUSE PAINTER [address] [place] [address] dm [facility] Comment on above: dm Start: 04-02-2025 End: 04-02-2025 Follow-up encounter 04/02/2025 9:00 AM EDT [facility] [address] [place] [address] Ana Hussein, BLUEPRINT PROCESSOR.HOUSE PAINTER [address] [place] [address] FOLLOW UP 3 MONTHS [facility] Comment on above: FOLLOW UP 3 MONTHS Start: 03-06-2025 Hepatitis B screening Urine Albumin:Creatinine Ratio [facility] Start: 03-06-2025 Hepatitis B surface antibody level LDL Cholesterol [facility] Start: 02-04-2025 Covid-19 Vaccine ( season) Covid-19 Vaccine () [facility] Start: 02-01-2025 Urine microalbumin profile [facility] Start: 12-16-2024 End: 03-17-2025 Cobalamin (Vitamin B12) [Mass/volume] in Serum or Plasma VITAMIN B12 Lab Routine Malaise and fatigue Expected: 12/16/2024, Expires: 03/17/2025 [facility] Comment on above: Expected: 12/16/2024 , Expires: 03/17/2025 Start: 12-16-2024 End: 03-17-2025 Folate [Mass/volume] in Serum or Plasma FOLATE, SERUM Lab Routine Malaise and fatigue Expected: 12/16/2024, Expires: 03/17/2025 [facility] Comment on above: Expected: 12/16/2024 , Expires: 03/17/2025 Start: 12-16-2024 End: 03-17-2025 Microalbumin/Creatinine [Mass Ratio] in Urine ALBUMIN/CREATININE RATIO, URINE Lab Routine Type 2 diabetes mellitus with hyperglycemia, without long-term current use of insulin (HCC) Expected: 12/16/2024, Expires: 03/17/2025 [facility] Work Phone: Comment on above: Expected: 12/16/2024 , Expires: 03/17/2025 Start: 12-16-2024 End: 03-17-2025 Thyrotropin [Units/volume] in Serum or Plasma THYROID STIMULATING HORMONE Lab Routine Type 2 diabetes mellitus with hyperglycemia, without long-term current use of insulin (HCC) Expected: 12/16/2024, Expires: 03/17/2025 [facility] Comment on above: Expected: 12/16/2024 , Expires: 03/17/2025 Start: 12-16-2024 End: 12-16-2024 Patient encounter procedure 12/16/2024 9:00 AM EDT Office Visit [facility] [address] [place] [address] Ana Hussein, BLUEPRINT PROCESSOR.HOUSE PAINTER [address] [place] [address] Est- 3 month diabetic follow up [facility] Comment on above: Est- 3 month diabeti c follow up Start: 12-03-2024 Hemoglobin A1c measurement HbA1C [facility] Start: 10-08-2024 Advance Directive Discussion Advance Directive Discussion [facility] Start: 10-02-2024 End: 10-02-2024 Follow-up encounter 10/02/2024 2:00 PM EST [facility] [address] [place] [address] Ana Hussein, BLUEPRINT PROCESSOR.HOUSE PAINTER [address] [place] [address] FOLLOW UP 4 MONTHS [facility] Comment on above: FOLLOW UP 4 MONTHS Start: 10-02-2024 End: 01-01-2025 Hemoglobin A1c in Blood HEMOGLOBIN A1C Lab Routine Type 2 diabetes mellitus with hyperglycemia, without long-term current use of insulin (HCC) Expected: 10/02/2024, Expires: 01/01/2025 [facility] Work Phone: Comment on above: Expected: 10/02/2024 , Expires: 01/01/2025 Start: 10-02-2024 End: 10-02-2024 Patient encounter procedure 10/02/2024 2:00 PM [facility] [address] [place], [place] [id number] Ana Hussein, BLUEPRINT PROCESSOR.HOUSE PAINTER [address] [place], [place] [id number] Type 2 diabetes mellitus with hyperglycemia, without long-term current use of insulin (HCC) (Primary Dx) [facility] Comment on above: Type 2 diabetes sharlene itus with hyperglycemia, without long-term current use of insulin (HCC) (Primary Dx) Start: 09-06-2024 Hemoglobin A1c measurement HbA1C [facility] Start: 07-10-2024 3 comp foot exam completed Diabetic Foot Exam [facility] Start: 07-10-2024 Diabetic foot examination Diabetic Foot Exam [facility] Start: 06-08-2024 Covid-19 Vaccine ( season) Covid-19 Vaccine ( season) [facility] Start: 06-08-2024 Covid-19 Vaccine ( season) Covid-19 Vaccine ( season) [facility] Start: 06-08-2024 Influenza vaccination Influenza Vacc ine (#1) [facility] Start: 06-02-2024 End: 06-02-2024 Patient encounter procedure 06/02/2024 3:00 PM EDT Office Visit [facility] [address] [place], [place] [id number] Ana Hussein, BLUEPRINT PROCESSOR.HOUSE PAINTER [address] [place], [place] [id number] Dm follow up (STEPHANI) [facility] Comment on above: Dm follow up (STEPHANI) Start: 06-02-2024 End: 09-01-2024 CREATININE BLD CREATININE BLD Lab Routine Type 2 diabetes mellitus with hyperglycemia, without long-term current use of insulin (HCC) Expected: 06/02/2024, Expires: 09/01/2024 [facility] Comment on above: Expected: 06/02/2024 , Expires: 09/01/2024 Start: 06-02-2024 End: 09-01-2024 Thyrotropin [Units/volume] in Serum or Plasma THYROID STIMULATING HORMONE Lab Routine Type 2 diabetes mellitus with hyperglycemia, without long-term current use of insulin (HCC) Expected: 06/02/2024, Expires: 09/01/2024 [facility] Comment on above: Expected: 06/02/2024 , Expires: 09/01/2024 Start: 05-10-2024 Glaucoma screening Dilated Retinal E xam [facility] Start: 05-10-2024 Hepatitis C antibody , confirmatory test DILATED RETINAL EXAM [facility] Start: 01-09-2024 Hemoglobin A1c measurement HbA1C [facility] Start: 01-09-2024 Hemoglobin A1c/Hemoglobin.total in Blood HbA1C [facility] Start: 11-13-2023 Covid-19 Vaccine () Covid-19 Vaccine () [facility] Start: 10-08-2023 Advance Directive Discussion Advance Directive Discussion [facility] Start: 10-08-2023 Behavioral Health Screening Behavioral Health Screening [facility] Start: 09-14-2023 Hemoglobin A1c/Hemoglobin.total in Blood HBA1C [facility] Start: 08-17-2023 3 comp foot exam completed DIABETIC FOOT EXAM [facility] Start: 06-08-2023 Covid-19 Vaccine () Covid-19 Vaccine () [facility] Start: 06-08-2023 Influenza vaccination C [facility] Start: 02-14-2023 Hemoglobin A1c/Hemoglobin.total in Blood HBA1C [facility] Start: 10-28-2022 COVID-19 VACCINE (6 - Moderna series) COVID-19 VACCINE (6 - Moderna series) [facility] Start: 10-27-2022 Hepatitis B screening URINE ALBUMIN:CREATININE RATIO [facility] Start: 10-27-2022 Hepatitis B surface antibody level LDL CHOLESTEROL [facility] Start: 10-08-2022 ADVANCE DIRECTIVE DISCUSSION ADVANCE DIRECTIVE DISCUSSION [facility] Start: 10-08-2022 DEPRESSION ASSESSMENT DEPRESSION ASS ESSMENT [facility] Start: 08-17-2022 End: 10-17-2022 ALBUMIN/CREAT RATIO RND UR ALBUMIN/CREAT RATIO RND UR Lab Routine Type 2 diabetes mellitus with hyperglycemia, without long-term current use of insulin (HCC) Expected: 08/17/2022, Expires: 10/17/2022 [facility] Work Phone: Comment on above: Expected: 08/17/2022 , Expires: 10/17/2022 Start: 08-17-2022 End: 10-17-2022 Hemoglobin A1c in Blood HGB A1C Lab Routine Type 2 diabetes mellitus with hyperglycemia, without long-term current use of insulin (HCC) Expected: 08/17/2022, Expires: 10/17/2022 [facility] Work Phone: Comment on above: Expected: 08/17/2022 , Expires: 10/17/2022 Start: 08-17-2022 End: 10-17-2022 Hepatic function 2000 panel - Serum or Plasma HEPATIC FUNCTION PNL Lab Routine Type 2 diabetes mellitus with hyperglycemia, without long-term current use of insulin (HCC) Expected: 08/17/2022, Expires: 10/17/2022 [facility] Work Phone: Comment on above: Expected: 08/17/2022 , Expires: 10/17/2022 Start: 06-08-2022 Influenza vaccination INFLUENZA (#1) [facility] Start: 05-24-2022 Hepatitis C antibody , confirmatory test DILATED RETINAL EXAM [facility] Start: 04-07-2022 COVID-19 VACCINE (5 - Booster for Moderna series) COVID-19 VACCINE (5 - Booster for Moderna series) [facility] Start: 02-17-2022 3 comp foot exam completed DIABETIC FOOT EXAM [facility] Start: 01-30-2022 End: 04-01-2022 Hemoglobin A1c/Hemoglobin.total in Blood HGB A1C Lab Routine Type 2 diabetes mellitus with hyperglycemia, without long-term current use of insulin (HCC) Expected: 01/30/2022, Expires: 04/01/2022 [facility] Work Phone: Comment on above: Expected: 01/30/2022 , Expires: 04/01/2022 Start: 10-08-2021 ADVANCE DIRECTIVE DISCUSSION ADVANCE DIRECTIVE DISCUSSION [facility] Start: 10-08-2021 DEPRESSION ASSESSMENT DEPRESSION ASS ESSMENT [facility] Start: 08-26-2021 Pneumococcal Vaccine : 50+ (2 of 2 - PCV) Pneumococcal Vaccine: 50+ (2 of 2 - PCV) [facility] Start: 08-26-2021 Pneumococcal Vaccine : 65+ (2 - PCV) Pneumococcal Vaccine: 65+ (2 - PCV) [facility] Start: 08-26-2021 Pneumococcal Vaccine : 65+ (2 of 2 - PCV) Pneumococcal Vaccine: 65+ (2 of 2 - PCV) [facility] Start: 08-26-2021 PNEUMOCOCCAL: 65+ (2 - PCV) PNEUMOCOCCAL: 65+ (2 - PCV) [facility] Start: 08-20-2021 Hemoglobin A1c/Hemoglobin.total in Blood HBA1C [facility] Start: 08-08-2020 Medicare Annual Well ness Visit Medicare Annual Wellness Visit [facility] Start: 2010 PROSTATE CANCER SCREENING DISCUSSION PROSTATE CANCER SCREENING DISCUSSION [facility] Start: 2010 Prostate specific antigen measurement Prostate Cancer Screening Discussion [facility] Start: 2000 COLOGUARD (FIT-DNA) COLOGUARD (FIT-D NA) [facility] Start: [address] [facility] Start: 2000 FECAL OCCULT BLOOD FECAL OCCULT BLOO D [facility] Start: 2000 Screening for malign ant neoplasm of colon [facility] Start: 2000 SIGMOIDOSCOPY SIGMOIDOSCOPY [facility] Start: 1973 ANNUAL PCP TEAM STOCK LIFTER HENRY DISEASE VISIT ANNUAL PCP TEAM CHRONIC DISEASE VISIT [facility] Start: 1973 Anxiety Screening Anxiety Screening [facility] Start: 1973 Depression Screening Depression Scre ening [facility] Start: 1973 HEPATITIS C SCREENING HEPATITIS C [facility] Start: 1973 Hepatitis C screening Hepatitis C [facility] Start: 1967 Adult depression screening assessment DEPRESSION SCREENING [facility] End: 08-17-2023 Hemoglobin A1c/Hemoglobin.total in Blood HEMOGLOBIN A1C (POC) Lab Routine Type 2 diabetes mellitus with hyperglycemia, without long-term current use of insulin (HCC) Every 3 months for 4 Occurrences starting 08/17/2022 until 08/17/2023 [facility] Work Phone: Comment on above: Every 3 months for 4 Occurrences starting 08/17/2022 until 08/17/2023 Hemoglobin A1c/Hemoglobin.total in Blood HEMOGLOBIN A1C (POC) Lab Routine Type 2 diabetes mellitus with hyperglycemia, without long-term current use of insulin (HCC) Ordered: 06/02/2024 [facility] Work Phone: Comment on above: Ordered: 06/02/2024 Ova OR parasites identification [facility] Immunizations Immunization Date Immunization Notes Care Provider Darling nolan 08-13-2023 influenza virus vacc ine, unspecified formulation Ana Hussein APRN.HOUSE PAINTER Work Phone: [facility] 07-30-2023 respiratory syncytia l virus (RSV), unspecified formulation Ana Hussein APRN.HOUSE PAINTER Work Phone: [facility] Work Phone: 08-02-2022 influenza virus vacc ine, unspecified formulation Ana Hussein APRN.HOUSE PAINTER Work Phone: [facility] 07-29-2021 influenza (aIIV4) vaccine, age 65+ yr, quadrivalent, PF (FLUAD QUADRIVALENT) Ana Hussein APRN.HOUSE PAINTER Work Phone: [facility] 07-29-2021 influenza, injectabl e, quadrivalent, contains preservative Ana Hussein APRN.HOUSE PAINTER Work Phone: [facility] Work Phone: 08-26-2020 pneumococcal polysaccharide vaccine, 23 valent Ana Juan BLUEPRINT PROCESSOR.HOUSE PAINTER Work Phone: [facility] 07-19-2020 Influenza, injectabl e, Madin Briseyda Canine Kidney, preservative free, quadrivalent Anarishi Hussein BLUEPRINT PROCESSOR.HOUSE PAINTER Work Phone: [facility] 06-25-2019 Seasonal, quadrivale nt, recombinant, injectable influenza vaccine, preservative free Anarishi Hussein BLUEPRINT PROCESSOR.HOUSE PAINTER Work Phone: [facility] 06-25-2019 zoster vaccine recombinant Ana Juan BLUEPRINT PROCESSOR.HOUSE PAINTER Work Phone: [facility] 03-24-2019 zoster vaccine recombinant Ana Juan BLUEPRINT PROCESSOR.HOUSE PAINTER Work Phone: [facility] 06-25-2018 influenza, injectabl e, quadrivalent, preservative free Ana Juan BLUEPRINT PROCESSOR.HOUSE PAINTER Work Phone: [facility] 07-08-2017 influenza, injectabl e, quadrivalent, contains preservative Anarishi Hussein BLUEPRINT PROCESSOR.HOUSE PAINTER Work Phone: [facility] 07-08-2015 influenza, seasonal, injectable Anarishi Hussein BLUEPRINT PROCESSOR.HOUSE PAINTER Work Phone: [facility] 02-01-2015 tetanus toxoid, redu fouzia diphtheria toxoid, and acellular pertussis vaccine, adsorbed Anarishi Hussein BLUEPRINT PROCESSOR.HOUSE PAINTER Work Phone: [facility] Payers Date Payer Category Payer Self-pay [id number] 2020 Medicare MEDICARE MEDICAR E A AND B [id number] 2020-Present [phone] [place] [address] Medicare [id number] 2020 Medicare [id number] 2020 Private Health Insurance MMO MED ICARE SUPPLEMENT [id number] 2020 Unknown MMO MMO MEDICARE SUPPLEMENT [id number] 2020-Present [phone] [place], [place] [address] Indemnity [id number] 2020 Unknown MMO MMO MEDICARE SUPPLEMENT [id number] 2020-Present [phone] [place], [place] [address] Indemnity [id number] 2020 Medicare [id number] 2020 Unknown [id number] Unknown [id number] 462 Unknown [id number]. 462 Unknown [id number]. 462 Unknown [id number]. 462 Unknown [id number]. 462 Unknown [id number]. 462 Unknown [id number]. 462 Unknown [id number]. 462 Unknown [id number]. 462 Unknown [id number] [id number]. 462 Unknown [id number] [id number]. 462 Unknown [id number]. 462 Unknown [id number]. 462 Unknown [id number]. 462 Unknown [id number]. 462 Unknown [id number] 462 Social History Date Type Detail Facility Start: 05-28-2017 End: 07-09-2024 Tobacco smoking status MNIS Never smoked tobacco [facility] Work Phone: Start: 05-28-2017 End: 08-17-2022 Tobacco use and exposure Former smokeless tobacco user [facility] Work Phone: History of tobacco use Chews [facility] Work Phone: Start: 09-20-2021 End: 05-28-2025 Alcohol intake Current drinker of alcohol (finding) [facility] Start: 05-28-2017 History SDOH Alcohol Comment 1x/month beer [facility] Start: 1955 Sex Assigned At Male [facility] Start: 10-20-2021 End: 10-24-2022 Tobacco smoking status NHIS Unknown if ever smoked [facility] Start: 08-07-2022 End: 08-17-2022 Exposure to SARS-CoV-2 (event) Not sure [facility] Start: 03-15-2023 End: 04-05-2023 History of Social function [facility] Start: 03-15-2023 End: 04-05-2023 Tobacco use panel [facility] Start: 09-08-2012 Retired 11/06/2019 P HQ Score 0 [facility] Start: 12-09-2018 Gender identity Identifies as male gender (finding) [facility] Start: 12-09-2018 Sexual orientation Heterosexual (fin ding) [facility] Start: 02-03-2025 End: 02-11-2025 Sex Male (finding) [facility] Medical Equipment Procedure Code Equipment Code Equipment Original Text Equipment Identifier Dates [id number], [id number], [id number], [id number], [id number], [id number] Start: 02-01-2021 End: 12-16-2024 Comment on above: FOR MONITORING SUGAR S 1X/DAY 1x/day Use as instructed 1x /day Drug-eluting coronary artery stent, non-bioabsorbable -polymer-coated ()[id number] FDA Start: 06-27-2024 Drug-eluting coronary artery stent, non-bioabsorbable -polymer-coated ()[id number] FDA Start: 06-27-2024 Functional Status Date Assessment Result Facility 02-23-2018 Are you deaf, or do you have serious difficulty hearing No 02/23/2018 2:48 PM Leticia Barron RN No [facility] 02-23-2018 Are you blind, or do you have serious difficulty seeing, even when wearing glasses No 02/23/2018 2:48 PM Leticia Barron RN No [facility] 02-23-2018 Do you have serious difficulty walking or climbing stairs No 02/23/2018 2:48 PM Leticia Barron RN [facility] 02-23-2018 Do you have difficul ty dressing or bathing No 02/23/2018 2:48 PM Leticia Barron RN No [facility] 02-23-2018 Because of a physica l, mental, or emotional condition, do you have difficulty doing errands alone such as visiting a physician's office or shopping No 02/23/2018 2:48 PM EDT Leticia Guzman RN No [facility] Mental Status Date Assessment Result Facility 02-23-2018 Because of a physica l, mental, or emotional condition, do you have serious difficulty concentrating, remembering, or making decisions No 02/23/2018 2:48 PM EDT Leticia Guzman RN No [facility] Clinical Notes 02-18-2018 to 08-13-2025 Telephone Encounter - Ana Hussein APRN.CNP - 06/23/2025 3:27 PM EDTTelephone Encounter - Ana Hussein APRN.CNP - 06/23/2025 3:27 PM EDT Note Date & Type Note Facility 08-13-2025 Note HNO ID: [id number] Author: ANA HUSSEIN APRN.KAVYA Service: ? Author Type: Nurse Practitioner Type: Progress Notes Filed: 08/13/2025 10:49 Note Text: Subjective Byron Rodríguez is a 70 year old male. Date of encounter: 08/13/2025 Byron Rodríguez (1955), is a 70 year old male who presents for Diabetes management Important Lab History: HBA1C: 07/2016: 6.1%, 08/2016: 6.8%, 05/2017: 6%, 07/2017: 6.8%, 11/2017: 6.6%, 02/2018: 6.5%, 07/2018: 6.2%, 12/2018: 6%, 03/2019: 6.3%, 10/2019: 6.6%, 03/2020: HbA1C 6.2%. 07/2020: 6.3%, 01/2021: HbA1C 6.3%, 02/2021: 6.4%, 09/13/2021: 7.1%, 02/13/2022: HbA1C 6.6%, 08/2022: 7.4%, 12/2022: 7.1%, 03/2023: 7.3%, 07/2023: 7.5%09/2023: "6.9%" per patient at Primary Care Provider office., 02/2024: 6.6%, 05/2024: 7.1%, 06/2024: 6.6%, 10/2024: HbA1C 6.2%, 12/2024: 6.4%, 02/2025: 6.4%, per patient, 08/2025: 6.7%, Thyroid Function Testin05/2017: TSH 1.500 (0.358-3.740 uIU/mL), free T4 0.89 (0.76-1.46 ng/dL), 07/2018: TSH 1.94 (0.358-3.74 uIU/mL), free T4 0.94 (0.76-1.46), 03/2019: TSH 1.57 (0.358-3.74 uIU/mL), free T4 0.88 (0.76-1.46), 03/2020: TSH 1.78 (0.358-3.74), free T4 0.90 (0.76-1.46), 01/2021: TSH 2.89 (0.358-3.74), 10/2021: TSH 1.87 (0.358-3.74), free T4 1.0 (0.76-1.46), 06/2022: TSH 1.95 (0.358-3.74), 07/2023: TSH 2.19 (0.358-3.74), 06/2024: TSH 1.62 (0.358-3.74), 01/2025: TSH 2.21 (0.3-4.2) Renal Function Testin08/2016: Creatinine 0.72, 05/2017: creatinine 0.67 mg/dL, eGFR>60, 02/2018: Creatinine 0.65, 07/2018: Creatinine 0.82, 03/2019: Creatinine 0.67, 03/22/2020: Creatinine 0.72, 07/2020: Creatinine 0.71, 01/20/2021: Creatinine 0.7, 10/2021: Creatinine 0.71, 07/05/2022; Creatinine 0.71, 12/2022: Creatinine 0.74, 06/2023: creatinine 0.76, 02/2024: Creatinine 0.71, 06/2024: Creatinine 0.77, 06/2024: Creatinine 0.9, 10/2024: Creatinine 0.72, 02/2025: Creatinine 0.74 Urine for Microalbumin: 05/2017: microalbumin to creatinine ratio ok, 07/2018: Microalbumin:Creatinine Ratio ok, 03/2019: Microalbumin:Creatinine Ratio ok, 03/2020: Microalbumin:Creatinine Ratio ok, 02/2021: Microalbumin:Creatinine Ratio ok, 10/27/2021: Microalbumin:Creatinine Ratio ok, 08/2022: Microalbumin:Creatinine Ratio ok, 02/2024: Microalbumin:Creatinine Ratio ok, 02/2025: Microalbumin:Creatinine Ratio ok Lipid Profile: 08/2016: TC 169, HDL 61, LDL 96 TG 58, 02/2018: TC 119, HDL 48, LDL 55, TG 78, 10/24/2018: TC 104 HDL 47 LDL 47 TG 52, 07/31/19: TC 104 HDL 52 LDL 45 TG 33, 03/2020: TC 126 HDL 56 LDL 61 TG 43, 11/02/2020: TC 110 HDL 54 LDL 49 TG 37, 10/2021: TC 115 HDL HDL 52 LDL 53 TG 48, 06/2022: TC 126 HDL 54 LDL 62 TG 50, 12/2022: TC 123 HDL 52 LDL 58 TG 67, 02/2024: TC 127 HDL 60 LDL 58 TG 46, 06/2024; TC 108 HDL 56 LDL 39 TG 65, 10/2024: TC 124 HDL 63 LDL 50 TG 55 Liver Profile: 05/2017: Liver function tests ok, 02/2018: AST 83 (9-37 U/L), ALT, Alkaline Phosphatase ok, 07/2018: LFTS ok, 03/2019: LFTS ok, 03/2020: LFTS ok, 07/2020: AST ALT Alkaline Phosphatase ok, 10/2020: AST ALT Alkaline Phosphatase ok, 01/2021: AST ALT Alkaline Phosphatase ok, 10/2021: AST ALT Alkaline Phosphatase ok, 12/25/2022: AST ALT Alkaline Phosphatase ok, 06/2024: AST 79 (15-37), ALT and Alkaline Phosphatase ok, 02/2025: AST ALT Alkaline Phosphatase ok Dilated Eye Exam: Patient educated to have ophthalmology visits at least once a year. 2007: Around this time diagnosed with Type 2 Diabetes Mellitus. Started on Metformin therapy. 2008: Had pancreatitis. 2016: Around this time, Metformin oral agent discontinued, [...] antibody <0.6 (<1.0 U/mL), testing done at [facility]. 05/2017: c-peptide 3.6 (0.8-3.2 ng/mL) with glucose 100 mg/dL, Note (history): started on Januvia when in the hospital. Glucose is stable now, no significant low blood sugars. Has a history of pancreatitis-gall bladder induced per patient. I reviewed the association with pancreatitis and that class of drug. I reviewed signs of pancreatitis and when to go to ER. Patient elects to remain on the drug for now 12/2018: trialing discontinuation of Januvia, HbA1C is 6% and this is a higher copay drug for [facility]. Previous diabetes related labs from [facility] reviewed prior to today's office visit. Any changes made at our last diabetes management visit were abstracted accordingly (if applicable). Today's Office Visit: Labs: had done this year. Weight graduating high school was 130s. States weight is stable. Advised to continue monitoring with Primary Care Provider at your routine visits with them. States they are aware and monitoring as well. Last 10 Encounter Wt Readings: Date: Wt: (more content not included)... [facility] 06-23-2025 Telephone encounter Note Staff: I can't find the requested pharmacy. Please call patient and verify and queue the requesting testing supplies accordingly, thanks . [facility] 06-23-2025 Miscellaneous Notes Staff: I can't find the requested pharmacy. Please call patient and verify and queue the requesting testing supplies accordingly, thanks . documented in this encounter [facility] 05-28-2025 Telephone encounter Note Patient is scheduled for VV visit on 12/03/2024 at 12 pm. Saritha Ramirez May 28, 2025 2:20 PM [facility] 05-28-2025 Miscellaneous Notes Patient is scheduled for VV visit on 12/03/2024 at 12 pm. Saritha Ramirez May 28, 2025 2:20 PM Has appointment in August, please schedule 3 months after that one in one of my VIRTUAL slots only documented in this encounter [facility] 05-28-2025 Telephone encounter Note Has appointment in August, please schedule 3 months after that one in one of my VIRTUAL slots only [facility] 05-28-2025 Note HNO ID: [id number] Author: ANA HUSSEIN APRN.CNP Service: ? Author Type: Nurse Practitioner Type: Progress Notes Filed: 05/28/2025 12:03 Note Text: Subjective Byron Rodríguez is a 69 year old male. Virtual Visit Progress Note This is a Virtual encounter initiated for an established patient, parent or guardian not originating from a related Evaluation AND Management service provided within the previous 7 days nor leading to an Evaluation AND Management service or procedure within the next 24 hours or soonest available appointment. This Team Access Model visit is a virtual encounter. It required patient-provider interaction for the medical decision making as documented below. Byron Rodríguez has consented to this Virtual encounter. Persons Present: Byron Rodríguez Chief Complaint/Reason: Diabetes Follow-up Visit Date of encounter: 05/28/2025 Byron Rodríguez (1955), is a 69 year old male who presents for Diabetes management Important Lab History: HBA1C: 07/2016: 6.1%, 08/2016: 6.8%, 05/2017: 6%, 07/2017: 6.8%, 11/2017: 6.6%, 02/2018: 6.5%, 07/2018: 6.2%, 12/2018: 6%, 03/2019: 6.3%, 10/2019: 6.6%, 03/2020: HbA1C 6.2%. 07/2020: 6.3%, 01/2021: HbA1C 6.3%, 02/2021: 6.4%, 09/13/2021: 7.1%, 02/13/2022: HbA1C 6.6%, 08/2022: 7.4%, 12/2022: 7.1%, 03/2023: 7.3%, 07/2023: 7.5%09/2023: "6.9%" per patient at Primary Care Provider office., 02/2024: 6.6%, 05/2024: 7.1%, 06/2024: 6.6%, 10/2024: HbA1C 6.2%, 12/2024: 6.4%, 02/2025: 6.4%, per patient Thyroid Function Testin05/2017: TSH 1.500 (0.358-3.740 uIU/mL), free T4 0.89 (0.76-1.46 ng/dL), 07/2018: TSH 1.94 (0.358-3.74 uIU/mL), free T4 0.94 (0.76-1.46), 03/2019: TSH 1.57 (0.358-3.74 uIU/mL), free T4 0.88 (0.76-1.46), 03/2020: TSH 1.78 (0.358-3.74), free T4 0.90 (0.76-1.46), 01/2021: TSH 2.89 (0.358-3.74), 10/2021: TSH 1.87 (0.358-3.74), free T4 1.0 (0.76-1.46), 06/2022: TSH 1.95 (0.358-3.74), 07/2023: TSH 2.19 (0.358-3.74), 06/2024: TSH 1.62 (0.358-3.74), 01/2025: TSH 2.21 (0.3-4.2) Renal Function Testin08/2016: Creatinine 0.72, 05/2017: creatinine 0.67 mg/dL, eGFR>60, 02/2018: Creatinine 0.65, 07/2018: Creatinine 0.82, 03/2019: Creatinine 0.67, 03/22/2020: Creatinine 0.72, 07/2020: Creatinine 0.71, 01/20/2021: Creatinine 0.7, 10/2021: Creatinine 0.71, 07/05/2022; Creatinine 0.71, 12/2022: Creatinine 0.74, 06/2023: creatinine 0.76, 02/2024: Creatinine 0.71, 06/2024: Creatinine 0.77, 06/2024: Creatinine 0.9, 10/2024: Creatinine 0.72, 02/2025: Creatinine 0.74 Urine for Microalbumin: 05/2017: microalbumin to creatinine ratio ok, 07/2018: Microalbumin:Creatinine Ratio ok, 03/2019: Microalbumin:Creatinine Ratio ok, 03/2020: Microalbumin:Creatinine Ratio ok, 02/2021: Microalbumin:Creatinine Ratio ok, 10/27/2021: Microalbumin:Creatinine Ratio ok, 08/2022: Microalbumin:Creatinine Ratio ok, 02/2024: Microalbumin:Creatinine Ratio ok, 02/2025: Microalbumin:Creatinine Ratio ok Lipid Profile: 08/2016: TC 169, HDL 61, LDL 96 TG 58, 02/2018: TC 119, HDL 48, LDL 55, TG 78, 10/24/2018: TC 104 HDL 47 LDL 47 TG 52, 07/31/19: TC 104 HDL 52 LDL 45 TG 33, 03/2020: TC 126 HDL 56 LDL 61 TG 43, 11/02/2020: TC 110 HDL 54 LDL 49 TG 37, 10/2021: TC 115 HDL HDL 52 LDL 53 TG 48, 06/2022: TC 126 HDL 54 LDL 62 TG 50, 12/2022: TC 123 HDL 52 LDL 58 TG 67, 02/2024: TC 127 HDL 60 LDL 58 TG 46, 06/2024; TC 108 HDL 56 LDL 39 TG 65, 10/2024: TC 124 HDL 63 LDL 50 TG 55 Liver Profile: 05/2017: Liver function tests ok, 02/2018: AST 83 (9-37 U/L), ALT, Alkaline Phosphatase ok, 07/2018: LFTS ok, 03/2019: LFTS ok, 03/2020: LFTS ok, 07/2020: AST ALT Alkaline Phosphatase ok, 10/2020: AST ALT Alkaline Phosphatase ok, 01/2021: AST ALT Alkaline Phosphatase ok, 10/2021: AST ALT Alkaline Phosphatase ok, 12/25/2022: AST ALT Alkaline Phosphatase ok, 06/2024: AST 79 (15-37), ALT and Alkaline Phosphatase ok, 02/2025: AST ALT Alkaline Phosphatase ok Dilated Eye Exam: Patient [...] antibody <0.6 (<1.0 U/mL), testing done at [facility]. 05/2017: c-peptide 3.6 (0.8-3.2 ng/mL) with glucose 100 mg/dL, Note (history): started on Januvia when in the hospital. Glucose is stable now, no significant low blood sugars. Has a history of pancreatitis-gall bladder induced per patient. I reviewed the association with pancreatitis and that (more content not included)... [facility] 05-28-2025 History of Presen t illness Narrative Subjective Byron Rodríguez is a 69 year old male. Virtual Visit Progress Note This is a Virtual encounter initiated for an established patient, parent or guardian not originating from a related Evaluation & Management service provided within the previous 7 days nor leading to an Evaluation & Management service or procedure within the next 24 hours or soonest available appointment. This Team Access Model visit is a virtual encounter. It required patient-provider interaction for the medical decision making as documented below. Byron Rodríguez has consented to this Virtual encounter. Persons Present: Byron Rodríguez Chief Complaint/Reason: Diabetes Follow-up Visit Date of encounter: 05/28/2025 Byron Rodríguez (1955), is a 69 year old male who presents for Diabetes management Important Lab History: HBA1C: 07/2016: 6.1%, 08/2016: 6.8%, 05/2017: 6%, 07/2017: 6.8%, 11/2017: 6.6%, 02/2018: 6.5%, 07/2018: 6.2%, 12/2018: 6%, 03/2019: 6.3%, 10/2019: 6.6%, 03/2020: HbA1C 6.2%. 07/2020: 6.3%, 01/2021: HbA1C 6.3%, 02/2021: 6.4%, 09/13/2021: 7.1%, 02/13/2022: HbA1C 6.6%, 08/2022: 7.4%, 12/2022: 7.1%, 03/2023: 7.3%, 07/2023: 7.5%09/2023: "6.9%" per patient at Primary Care Provider office., 02/2024: 6.6%, 05/2024: 7.1%, 06/2024: 6.6%, 10/2024: HbA1C 6.2%, 12/2024: 6.4%, 02/2025: 6.4%, per patient Thyroid Function Testin05/2017: TSH 1.500 (0.358-3.740 uIU/mL), free T4 0.89 (0.76-1.46 ng/dL), 07/2018: TSH 1.94 (0.358-3.74 uIU/mL), free T4 0.94 (0.76-1.46), 03/2019: TSH 1.57 (0.358-3.74 uIU/mL), free T4 0.88 (0.76-1.46), 03/2020: TSH 1.78 (0.358-3.74), free T4 0.90 (0.76-1.46), 01/2021: TSH 2.89 (0.358-3.74), 10/2021: TSH 1.87 (0.358-3.74), free T4 1.0 (0.76-1.46), 06/2022: TSH 1.95 (0.358-3.74), 07/2023: TSH 2.19 (0.358-3.74), 06/2024: TSH 1.62 (0.358-3.74), 01/2025: TSH 2.21 (0.3-4.2) Renal Function Testin08/2016: Creatinine 0.72, 05/2017: creatinine 0.67 mg/dL, eGFR>60, 02/2018: Creatinine 0.65, 07/2018: Creatinine 0.82, 03/2019: Creatinine 0.67, 03/22/2020: Creatinine 0.72, 07/2020: Creatinine 0.71, 01/20/2021: Creatinine 0.7, 10/2021: Creatinine 0.71, 07/05/2022; Creatinine 0.71, 12/2022: Creatinine 0.74, 06/2023: creatinine 0.76, 02/2024: Creatinine 0.71, 06/2024: Creatinine 0.77, 06/2024: Creatinine 0.9, 10/2024: Creatinine 0.72, 02/2025: Creatinine 0.74 Urine for Microalbumin: 05/2017: microalbumin to creatinine ratio ok, 07/2018: Microalbumin:Creatinine Ratio ok, 03/2019: Microalbumin:Creatinine Ratio ok, 03/2020: Microalbumin:Creatinine Ratio ok, 02/2021: Microalbumin:Creatinine Ratio ok, 10/27/2021: Microalbumin:Creatinine Ratio ok, 08/2022: Microalbumin:Creatinine Ratio ok, 02/2024: Microalbumin:Creatinine Ratio ok, 02/2025: Microalbumin:Creatinine Ratio ok Lipid Profile: 08/2016: TC 169, HDL 61, LDL 96 TG 58, 02/2018: TC 119, HDL 48, LDL 55, TG 78, 10/24/2018: TC 104 HDL 47 LDL 47 TG 52, 07/31/19: TC 104 HDL 52 LDL 45 TG 33, 03/2020: TC 126 HDL 56 LDL 61 TG 43, 11/02/2020: TC 110 HDL 54 LDL 49 TG 37, 10/2021: TC 115 HDL HDL 52 LDL 53 TG 48, 06/2022: TC 126 HDL 54 LDL 62 TG 50, 12/2022: TC 123 HDL 52 LDL 58 TG 67, 02/2024: TC 127 HDL 60 LDL 58 TG 46, 06/2024; TC 108 HDL 56 LDL 39 TG 65, 10/2024: TC 124 HDL 63 LDL 50 TG 55 Liver Profile: 05/2017: Liver function tests ok, 02/2018: AST 83 (9-37 U/L), ALT, Alkaline Phosphatase ok, 07/2018: LFTS ok, 03/2019: LFTS ok, 03/2020: LFTS ok, 07/2020: AST ALT Alkaline Phosphatase ok, 10/2020: AST ALT Alkaline Phosphatase ok, 01/2021: AST ALT Alkaline Phosphatase ok, 10/2021: AST ALT Alkaline Phosphatase ok, 12/25/2022: AST ALT Alkaline Phosphatase ok, 06/2024: AST 79 (15-37), ALT and Alkaline Phosphatase ok, 02/2025: AST ALT Alkaline Phosphatase ok Dilated Eye Exam: Patient [...] antibody <0.6 (<1.0 U/mL), testing done at [facility]. 05/2017: c-peptide 3.6 (0.8-3.2 ng/mL) with glucose 100 mg/dL, Note (history): started on Januvia when in the hospital. Glucose is stable now, no significant low blood sugars. Has a history of pancreatitis-gall bladder induced per patient. I reviewed the association with pancreatitis and that class of drug. I reviewed signs of pancreatitis and when to go to ER. Patient elects to remain on the drug for now 12/2018: trialing discontinuation of Januvia, HbA1C is 6% and this is a higher copay drug for [facility]. Previous diabetes related labs from [facility] reviewed prior to today's office visit. Any changes made at our last diabetes management visit were abstracted accordingly (if applicable). Today's Office Visit: Weight graduating high school was 130s. States weight is stable. 05/2025 Lipids: on statin BEE/ARB: now on Cardiology: following: Podiatry: following yearly. Orals: Metformin 500 mg ER two tabs at breakfast, one at supper (two at dinner now-self increased previously-feeling fine), jardiance 10 mg daily self monitoring blood glucose data": see logs scattered 100s. Patient mychart attached glucose readings. History: We discussed options in depth today. With pancreatitis hx we are avoiding Gsiujciv-bmir-pvfdyus-1 and Dipeptidyl peptidase-4 inhibitors. May consider sulfonylurea but we are concerned of low blood sugar levels. Discussed actos but patient concerned about s/e. Would be a good candidate for basal insulin then we can pursue a cgm as well. Reviewed in depth. Diet: watching Exercise: -as tolerated Denies frequent periods of hypoglycemia VITAMIN B12 03/03/2021: vitamin b12 398 (211-911), folate ok 01/2025: Vitamin b12 1409, folate >40, patient taking metanx which may raise this. Advised to discuss labs with Primary Care Provider to ensure no further action is needed.patient verbalized understanding and has an appointment soon. Labs were already cc'd to his Primary Care Provider. 05/2025: states did discuss with his Primary Care Provider and they reduced metanx I reviewed and updated the below Review of Systems for today's office visit. Review of Systems Objective There were no vitals taken for this visit. Physical Exam This was a telephone or virtual office visit. No physical examination was able to be performed. ASSESSMENT/PLAN: 1. Type 2 diabetes mellitus with hyperglycemia, without long-term current use of insulin ([facility]) - ICD9: 250.00, 790.29, ICD10: E11.65 - HEMOGLOBIN A1C DISTANCE HEALTH VISIT This Team Access Model visit is a virtual encounter. It required patient-provider interaction for the medical decision making as documented below. I have communicated my name and active licensure. The patient's identity and physical location were verified at the time of this visit. Either the patient or their legal customer support representative has been informed of the risks and benefits of -- and alternatives to -- treatment through a remote evaluation and consents to proceed with the evaluation remotely. Plan of Care: 1. Appears to be doing well on current regimen. 2. Can continue current diabetes medications and dosages for now. 3. I spent a total of >30 minutes on the date of the service which included preparing to see the patient, [id number] patient care (virtually), completing clinical documentation, obtaining and/or reviewing separately obtained history, counseling and educating the patient/family/caregiver, ordering medications, tests, or procedures, independently interpreting results (not separately reported), communicating results to the patient/family/caregiver, and care coordination (not separately reported). Greater than 50% of the time was spent in counseling and/or coordination of care. 4. Please bring your blood sugar log, meter (if applicable), or your continuous glucose monitoring (CGM) device to your office visits. 5. Answered all questions. 6. Patient verbalized understanding of all the above instructions. 7. Discussed therapeutic lifestyle changes. Ana Hussein APRN.HOUSE PAINTER documented in this encounter [facility] 05-28-2025 Telephone encounter Note Fyi for todays visit. [facility] 05-28-2025 Miscellaneous Notes Fyi for todays visit. documented in this encounter [facility] 01-06-2025 Evaluation note Diagnosis Onset Date Resolution History of coronary artery stent placement acute January 06, 2025 11:01am Essential hypertension chronic January 06, 2025 11:01am Hyperlipidemia chronic January 06, 2025 11:01am Type 2 diabetes mellitus without complications chronic January 06, 2025 11:01am H/O coronary artery bypass surgery February 18, 2018 resolved January 06, 2025 11:01am [facility] Work Phone: 1(263) 187-323503-17-2025 Telephone encounter Note* Telephone Encounter - Viktoria German - 12/22/2024 10:15 AM EDT F/u ov made may and August Viktoria German December 22, 2024 10:16 AM [facility]03-17-2025 Telephone encounter Note* Telephone Encounter - Viktoria German - 12/22/2024 10:15 AM EDT ----- Message from Marika Canela sent at 12/22/2024 9:57 AM EDT ----- Regarding: Dtli-Qmwfzkncv-Qoqqo visit reschedule Patient: Byron Rodríguez Date of : 1955 Primary Care Provider: Juvencio Glez MD Patient has been identified by name and Date of (Y/N): Patient: Byron Rodríguez Date of : 1955 Provider for this encounter: Juvencio Glez MD Reason for the call/escalation: diabetic video visit march 23 that or first/ second week of April- morning appointments 06-17--- Tuesdays and work best No video appointments populated for him for me to reschedule Was Patient Referred to [facility]/Seek Emergency Treatment (Y/N): n/a Did Patient Agree (Y/N): n/a Was An Attempt Made To Transfer The Patient To The Office (Y/N): n Were You Able To Reach Someone At The Office (Y/N): n If Yes - Patient Was Transferred To (Caregivers Name): n/a If No - Which [facility] Leadership Chemical Instrumentation Officer Did You Speak With Regarding This Patient: n/a Was an appointment scheduled (Y/N): n/a Reason patient was requesting visit (RFV/signs and symptoms/diagnosis) : diabetic Person calling if other than patient: n/a Return call to if other than patient: n/a Best contact number: [phone] Thank you, Marika France December 22, 2024 9:57 AM [facility]03-17-2025 Miscellaneous Notes* Telephone Encounter - Viktoria German - 12/22/2024 10:15 AM EDT F/u ov made may and August Viktoria German December 22, 2024 10:16 AM * Telephone Encounter - Viktoria German - 12/22/2024 10:15 AM EDT ----- Message from Marika Canela sent at 12/22/2024 9:57 AM EDT ----- Regarding: Dbln-Yciegrdia-Ddqap visit reschedule Patient: Byron Rodríguez Date of : 1955 Primary Care Provider: Juvencio Glez MD Patient has been identified by name and Date of (Y/N): Patient: Byron Rodríguez Date of : 1955 Provider for this encounter: Juvencio Glez MD Reason for the call/escalation: diabetic video visit march 23 or first/ second week of April- morning appointments 06-17--- Tuesdays and work best No video appointments populated for him for me to reschedule Was Patient Referred to [facility]/Seek Emergency Treatment (Y/N): n/a Did Patient Agree (Y/N): n/a Was An Attempt Made To Transfer The Patient To The Office (Y/N): n Were You Able To Reach Someone At The Office (Y/N): n If Yes - Patient Was Transferred To (Caregivers Name): n/a If No - Which [facility] Leadership Chemical Instrumentation Officer Did You Speak With Regarding This Patient: n/a Was an appointment scheduled (Y/N): n/a Reason patient was requesting visit (RFV/signs and symptoms/diagnosis) : diabetic Person calling if other than patient: n/a Return call to if other than patient: n/a Best contact number: [phone] Thank you, Marika France December 22, 2024 9:57 AM [facility] NoteHNO ID: [id number] Author: ANA HUSSEIN APRN.HOUSE PAINTER Service: ? Author Type: Nurse Practitioner Type: Progress Notes Filed: 12/16/2024 09:37 Note Text: Subjective Date of encounter: 12/16/2024 Byron Rodríguez (1955), is a 69 year old male who presents for Diabetes management Important Lab History: HBA1C: 07/2016: 6.1%, 08/2016: 6.8%, 05/2017: 6%, 07/2017: 6.8%, 11/2017: 6.6%, 02/2018: 6.5%, 07/2018: 6.2%, 12/2018: 6%, 03/2019: 6.3%, 10/2019: 6.6%, 03/2020: HbA1C 6.2%. 07/2020: 6.3%, 01/2021: HbA1C 6.3%, 02/2021: 6.4%, 09/13/2021: 7.1%, 02/13/2022: HbA1C 6.6%, 08/2022: 7.4%, 12/2022: 7.1%, 03/2023: 7.3%, 07/2023: 7.5%09/2023: "6.9%" per patient at Primary Care Provider office., 02/2024: 6.6%, 05/2024: 7.1%, 06/2024: 6.6%, 10/2024: HbA1C 6.2%, 12/2024: 6.4% Thyroid Function Testin05/2017: TSH 1.500 (0.358-3.740 uIU/mL), free T4 0.89 (0.76-1.46 ng/dL), 07/2018: TSH 1.94 (0.358-3.74 uIU/mL), free T4 0.94 (0.76-1.46), 03/2019: TSH 1.57 (0.358-3.74 uIU/mL), free T4 0.88 (0.76-1.46), 03/2020: TSH 1.78 (0.358-3.74), free T4 0.90 (0.76-1.46), 01/2021: TSH 2.89 (0.358-3.74), 10/2021: TSH 1.87 (0.358-3.74), free T4 1.0 (0.76-1.46), 06/2022: TSH 1.95 (0.358-3.74), 07/2023: TSH 2.19 (0.358-3.74), 06/2024: TSH 1.62 (0.358-3.74) Renal Function Testin08/2016: Creatinine 0.72, 05/2017: creatinine 0.67 mg/dL, eGFR>60, 02/2018: Creatinine 0.65, 07/2018: Creatinine 0.82, 03/2019: Creatinine 0.67, 03/22/2020: Creatinine 0.72, 07/2020: Creatinine 0.71, 01/20/2021: Creatinine 0.7, 10/2021: Creatinine 0.71, 07/05/2022; Creatinine 0.71, 12/2022: Creatinine 0.74, 06/2023: creatinine 0.76, 02/2024: Creatinine 0.71, 06/2024: Creatinine 0.77, 06/2024: Creatinine 0.9, 10/2024: Creatinine 0.72 Urine for Microalbumin: 05/2017: microalbumin to creatinine ratio ok, 07/2018: Microalbumin:Creatinine Ratio ok, 03/2019: Microalbumin:Creatinine Ratio ok, 03/2020: Microalbumin:Creatinine Ratio ok, 02/2021: Microalbumin:Creatinine Ratio ok, 10/27/2021: Microalbumin:Creatinine Ratio ok, 08/2022: Microalbumin:Creatinine Ratio ok, 02/2024: Microalbumin:Creatinine Ratio ok Lipid Profile: 08/2016: TC 169, HDL 61, LDL 96 TG 58, 02/2018: TC 119, HDL 48, LDL 55, TG 78, 10/24/2018: TC 104 HDL 47 LDL 47 TG 52, 07/31/19: TC 104 HDL 52 LDL 45 TG 33, 03/2020: TC 126 HDL 56 LDL 61 TG 43, 11/02/2020: TC 110 HDL 54 LDL 49 TG 37, 10/2021: TC 115 HDL HDL 52 LDL 53 TG 48, 06/2022: TC 126 HDL 54 LDL 62 TG 50, 12/2022: TC 123 HDL 52 LDL 58 TG 67, 02/2024: TC 127 HDL 60 LDL 58 TG 46, 06/2024; TC 108 HDL 56 LDL 39 TG 65, 10/2024: TC 124 HDL 63 LDL 50 TG 55 Liver Profile: 05/2017: Liver function tests ok, 02/2018: AST 83 (9-37 U/L), ALT, Alkaline Phosphatase ok, 07/2018: LFTS ok, 03/2019: LFTS ok, 03/2020: LFTS ok, 07/2020: AST ALT Alkaline Phosphatase ok, 10/2020: AST ALT Alkaline Phosphatase ok, 01/2021: AST ALT Alkaline Phosphatase ok, 10/2021: AST ALT Alkaline Phosphatase ok, 12/25/2022: AST ALT Alkaline Phosphatase ok, 06/2024: AST 79 (15-37), ALT and Alkaline Phosphatase ok Dilated Eye Exam: Patient [...] antibody <0.6 (<1.0 U/mL), testing done at [facility]. 05/2017: c-peptide 3.6 (0.8-3.2 ng/mL) with glucose 100 mg/dL, Note (history): started on Januvia when in the hospital. Glucose is stable now, no significant low blood sugars. Has a history of pancreatitis-gall bladder induced per patient. I reviewed the association with pancreatitis and that class of drug. I reviewed signs of pancreatitis and when to go to ER. Patient elects to remain on the drug for now 12/2018: trialing discontinuation of Januvia, HbA1C is 6% and this is a higher copay drug for [facility]. Previous diabetes related labs from [facility] and [facility] reviewed prior to today's office visit. Any changes made at our last diabetes management visit were abstracted accordingly (if applicable). Today's Office Visit: Last 10 Encounter Wt Readings: Date: Wt: 12/16/2024 63.1 kg (139 lb 3.2 oz) 06/02/2024 67.9 kg (149 lb 12.8 oz) 07/10/2023 68.7 kg (151 lb 6.4 oz) 03/15/2023 70.6 kg (155 lb 9.6 oz) 08/17/2022 72 kg (158 lb 12.8 oz) 09/15/2021 71.2 kg (157 lb) 06/08/2021 70.5 kg (155 lb 8 oz) 02/17/2021 72.2 kg (159 lb 3.2 oz) 02/01/2021 72 kg (158 lb 12.8 oz) 12/16/2019 73.5 kg (162 lb) "I really stopped eating a lot" now watching carbs, fats, sodium, etc., since having stents last year. Advised (more content not included)...[facility]03-11-2025 History of Present illness Narrative* Ana Hussein, KEITH.HOUSE PAINTER - 12/16/2024 8:45 AM EDT Subjective Date of encounter: 12/16/2024 Byron Rodríguez (1955), is a 69 year old male who presents for Diabetes management Important Lab History: HBA1C: 07/2016: 6.1%, 08/2016: 6.8%, 05/2017: 6%, 07/2017: 6.8%, 11/2017: 6.6%, 02/2018: 6.5%, 07/2018: 6.2%, 12/2018: 6%, 03/2019: 6.3%, 10/2019: 6.6%, 03/2020: HbA1C 6.2%. 07/2020: 6.3%, 01/2021: HbA1C 6.3%, 02/2021: 6.4%, 09/13/2021: 7.1%, 02/13/2022: HbA1C 6.6%, 08/2022: 7.4%, 12/2022: 7.1%, 03/2023: 7.3%, 07/2023: 7.5%09/2023: "6.9%" per patient at Primary Care Provider office., 02/2024: 6.6%, 05/2024: 7.1%, 06/2024: 6.6%, 10/2024: HbA1C 6.2%, 12/2024: 6.4% Thyroid Function Testin05/2017: TSH 1.500 (0.358-3.740 uIU/mL), free T4 0.89 (0.76-1.46 ng/dL), 07/2018: TSH 1.94 (0.358-3.74 uIU/mL), free T4 0.94 (0.76- 1.46), 03/2019: TSH 1.57 (0.358-3.74 uIU/mL), free T4 0.88 (0.76-1.46), 03/2020: TSH 1.78 (0.358-3.74), free T4 0.90 (0.76-1.46), 01/2021: TSH 2.89 (0.358-3.74), 10/2021: TSH 1.87 (0.358-3.74), free T4 1.0 (0.76-1.46), 06/2022: TSH 1.95 (0.358-3.74), 07/2023: TSH 2.19 (0.358-3.74), 06/2024: TSH 1.62 (0.358-3.74) Renal Function Testin08/2016: Creatinine 0.72, 05/2017: creatinine 0.67 mg/dL, eGFR>60, 02/2018: Creatinine 0.65, 07/2018: Creatinine 0.82, 03/2019: Creatinine 0.67, 03/22/2020: Creatinine 0.72, 07/2020: Creatinine 0.71, 01/20/2021: Creatinine 0.7, 10/2021: Creatinine 0.71, 07/05/2022; Creatinine 0.71, 12/2022: Creatinine 0.74, 06/2023: creatinine 0.76, 02/2024: Creatinine 0.71, 06/2024: Creatinine 0.77, 06/2024: Creatinine 0.9, 10/2024: Creatinine 0.72 Urine for Microalbumin: 05/2017: microalbumin to creatinine ratio ok, 07/2018: Microalbumin:Creatinine Ratio ok, 03/2019: Microalbumin:Creatinine Ratio ok, 03/2020: Microalbumin:Creatinine Ratio ok, 02/2021: Microalbumin:Creatinine Ratio ok, 10/27/2021: Microalbumin:Creatinine Ratio ok, 08/2022: Microalb umin:Creatinine Ratio ok, 02/2024: Microalbumin:Creatinine Ratio ok Lipid Profile: 08/2016: TC 169, HDL 61, LDL 96 TG 58, 02/2018: TC 119, HDL 48, LDL 55, TG 78, 10/24/2018: TC 104 HDL 47 LDL 47 TG 52, 07/31/19: TC 104 HDL 52 LDL 45 TG 33, 03/2020: TC 126 HDL 56 LDL 61 TG 43, 11/02/2020: TC 110 HDL 54 LDL 49 TG 37, 10/2021: TC 115 HDL HDL 52 LDL 53 TG 48, 06/2022: TC 126HDL 54 LDL 62 TG 50, 12/2022: TC 123 HDL 52 LDL 58 TG 67, 02/2024: TC 127 HDL 60 LDL 58 TG 46, 06/2024; TC 108 HDL 56 LDL 39 TG 65, 10/2024: TC 124 HDL 63 LDL 50 TG 55 Liver Profile: 05/2017: Liver function tests ok, 02/2018: AST 83 (9-37 U/L), ALT, Alkaline Phosphatase ok, 07/2018: LFTS ok, 03/2019: LFTS ok, 03/2020: LFTS ok, 07/2020: AST ALT Alkaline Phosphatase ok, 10/2020: AST ALT Alkaline Phosphatase ok, 01/2021: AST ALT Alkaline Phosphatase ok, 10/2021: AST ALT Alkaline Phosphatase ok, 12/25/2022: AST ALT Alkaline Phosphatase ok, 06/2024: AST 79 (15- 37), ALT and Alkaline Phosphatase ok Dilated Eye Exam: Patient [...] (CHERYL-65) antibody <5 0 (<5.0 IU/mL), insulin autoantibody<0.4 (<0.4 U/mL), IA-2 antibody <0.6 (<1.0 U/mL), testing done at [facility]. 05/2017: c-peptide 3.6 (0.8-3.2 ng/mL) with glucose 100 mg/dL, Note (history): started on Januvia when in the hospital. Glucose is stable now, no significant low blood sugars. Has a history of pancreatitis-gall bladder induced per patient. I reviewed the association with pancreatitis and that class of drug. I reviewed signs of pancreatitis and when to go to ER. Patient elects to remain on the drug for now 12/2018: trialing discontinuation of Januvia, HbA1C is 6% and this is a higher copay drug for [facility]. Previous diabetes related labs from [facility] reviewed prior to today's office visit. Any changes made at our last diabetes management visit were abstracted accordingly (if applicable). Today's Office Visit: Last 10 Encounter Wt Readings: Date: Wt: 12/16/2024 63.1 kg (139 lb 3.2 oz) 06/02/2024 67.9 kg (149 lb 12.8 oz) 07/10/2023 68.7 kg (151 lb 6.4 oz) 03/15/2023 70.6 kg (155 lb 9.6 oz) 08/17/2022 72 kg (158 lb 12.8 oz) 09/15/2021 71.2 kg (157 lb) 06/08/2021 70.5 kg (155 lb 8 oz) 02/17/2021 72.2 kg (159 lb 3.2 oz) 02/01/2021 72 kg (158 lb 12.8 oz) 12/16/2019 73.5 kg (162 lb) "I really stopped eating a lot" now watching carbs, fats, sodium, etc., since having stents last year. Advised to discuss weight loss with his Primary Care Provider previously and today, as well as cardiology. Recent TSH levels ok, will re-test. Weight graduating high school was 130s. Lipids: on statin BEE/ARB: now on Cardiology: following: Podiatry: following yearly. Orals: Metformin 500 mg ER two tabs at breakfast, one at supper (two at dinner now-self increased previously-feeling fine), jardiance 10 mg daily "self monitoring blood glucose data": see logs scattered 100s. History: We discussed options in depth today. With pancreatitis hx we are avoiding Ypzqehmn-lytd-jpebwps-1 and Dipeptidyl peptidase-4 inhibitors. May consider sulfonylurea but we are concerned of lowblood sugar levels. Discussed actos but patient concerned about s/e. Would be a good candidate for basal insulin then we can pursue a cgm as well. Reviewed in depth. Diet: watching Exercise: -as tolerated Denies frequent periods of hypoglycemia VITAMIN B12 03/03/2021: vitamin b12 398 (211-202), folate ok I reviewed and updated the below Review of Systems for today's office visit. Review of Systems Constitutional: Positive for weight loss. HENT: Negative for ear pain. Eyes: Negative for pain. Respiratory: Negative for shortness of breath. Cardiovascular: Negative for chest pain. Gastrointestinal: Negative for abdominal pain, blood in stool and melena. Genitourinary: Negative for hematuria. Musculoskeletal: Negative for falls. Neurological: Positive for tingling (states chronic neuropathies, following podiatry now, now on metanx). Negative for loss of consciousness. 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 Seizures (HCC) Type 2 diabetes mellitus with hyperglycemia (HCC) PAST SURGICAL HISTORY Procedure Laterality Date ABDOMINAL SURGERY HX COLONOSCOPY FLX DX W/COLLJ SPEC WHEN PFRMD 04/15/2008 COLONOSCOPY FLX DX W/COLLJ SPEC WHEN PFRMD 05/31/2021 CORONARY ARTERY BYPASS GRAFT 02/18/2018 x4 ESOPHAGOGASTRODUODENOSCOPY TRANSORAL DIAGNOSTIC 05/31/2021 HEART SURGERY HX LAPS SURG CHOLECYSTECTOMY W/CHOLANGIOGRAPHY 06/16/2009 VASCULAR SURGERY PROCEDURE FAMILY HISTORY Problem Relation Age of Onset Hypertension Mother Heart Brother Lipids Brother Social History Tobacco Use Smoking status: Never Smokeless tobacco: Former Types: Chew Substance Use Topics Alcohol use: Yes Comment: 1x/month beer Drug use: No Current Meds lisinopril (ZESTRIL) 20 mg tablet atorvastatin (LIPITOR) 80 mg tablet clopidogrel (PLAVIX) 75 mg tablet JARDIANCE 10 mg tablet METOPROLOL TARTRATE ORAL Take by mouth. phenytoin ER (DILANTIN) 100 mg ER capsule Take by mouth. 200mg every morning; PM dose alternates between 100mg and 200mg every other day. ASPIRIN ORAL Take 81 mg by mouth once daily. DOCOSAHEXANOIC ACID/EPA (FISH OIL ORAL) Take by mouth. MULTIVITAMIN TAB Take one(1) tablet daily. mecobalamin/L-mefolate/B6 phos (METANX ORAL) Take by mouth. metFORMIN ER (GLUCOPHAGE XR) 500 mg 24 hr tablet TWO TABLETS BEFORE BREAKFAST AND BEFORE SUPPER blood sugar diagnostic (ClerkUCH VERIO TEST STRIPS) test strip Use as instructed 1x/day lancets (Flybits DELICA PLUS LANCET) 33 gauge 1x/day Blood-Glucose Meter (ClerkUCH VERIO METER) For monitoring sugars 1x/day Objective BP 122/72 Ht 167.6 cm (5' 6") Wt 63.1 kg (139 lb 3.2 oz) BMI 22.47 kg/m Physical Exam Constitutional: General: He is not in acute distress. Appearance: He is not toxic-appearing. HENT: Head: Normocephalic and atraumatic. Eyes: General: No scleral icterus. Conjunctiva/sclera: Conjunctivae normal. Cardiovascular: Rate and Rhythm: Normal rate and regular rhythm. Pulmonary: Effort: Pulmonary effort is normal. No respiratory distress. Breath sounds: Normal breath sounds. No wheezing or rales. Skin: General: Skin is warm. Neurological: Mental Status: He is alert. Psychiatric: Mood and Affect: Mood and affect normal. Mood is not anxious. Judgment: Judgment normal. ASSESSMENT/PLAN: 1. Type 2 diabetes mellitus with hyperglycemia, without long-term current use of insulin ([facility]) - ICD9: 250.00, 790.29, ICD10: E11.65 (primary diagnosis) - HEMOGLOBIN A1C (POC) - ALBUMIN/CREATININE RATIO, URINE - THYROID STIMULATING HORMONE - METFORMIN ER 500 MG TABLET,EXTENDED RELEASE 24 HR - BLOOD SUGAR DIAGNOSTIC STRIPS - LANCETS 33 GAUGE Plan of Care: 1. HbA1C 6.4% 2. Can continue current diabetes medications and dosages for now. 3. I spent a total of >30 minutes on the date of the service which included preparing to see thepatient, [id number] patient care, completing clinical documentation, obtaining and/or reviewing separately obtained history, performing a medically appropriate examination, counseling and educatingthe patient/family/caregiver, ordering medications, tests, or procedures, independently interpreting results (not separately reported), communicating results to the patient/family/caregiver, and carecoordination (not separately reported). Greater than 50% of the time was spent in counseling and/or coordination of care. 4. Please bring your blood sugar log, meter (if applicable), or your continuous glucose monitoring (CGM) device to your office visits. 5. Answered all questions. 6. Patient verbalized understanding of all the above instructions. 7. Discussed therapeutic lifestyle changes. 2. Malaise and fatigue - ICD9: 780.79, ICD10: R53.81, R53.83 - VITAMIN B12 - FOLATE, SERUM On Metformin, check b12. Ana Hussein, KEITH.HOUSE PAINTER [facility] Telephone encounter Note * Telephone Encounter - Kurt Williamson - 10/31/2024 7:26 AM EST Recent labs uploaded to patients chart Kurt Williamson [facility]01-24-2025 Miscellaneous Notes* Telephone Encounter - Kurt Williamson - 10/31/2024 7:26 AM EST Recent labs uploaded to patients chart Kurt Williamson [facility] Telephone encounter Note * Telephone Encounter - Rony Mckeon - 10/02/2024 3:49 PM EST Spoke to the patient and scheduled 3 months follow up My Chart VV on 04/02/2024 at 9:00 am with Ana Mckeon October 02, 2024 3:53 PM [facility]12-26-2024 Miscellaneous Notes* Telephone Encounter - Rony Mckeon - 10/02/2024 3:49 PM EST Spoke to the patient and scheduled 3 months follow up My Chart VV on 04/02/2024 at 9:00 am with Ana Mckeon October 02, 2024 3:53 PM * Telephone Encounter - Rony Mckeon - 10/02/2024 3:19 PM EST Patient need to schedule another 3 months follow up in March after December. Rony Mckeon October 02, 2024 3:22 PM * Telephone Encounter - Liz Everett - 10/02/2024 2:44 PM EST Appointment desk shows scheduled for 12/16/2024 9:00 AM Liz Everett October 02, 2024 2:44 PM * Telephone Encounter - Rony Mckeon - 10/02/2024 2:14 PM EST LM on for patient to call back to schedule 3 months follow up appointment with Ana Hussein. Lab orders mailed to patient. Rony Mckeon October 02, 2024 2:14 PM * Telephone Encounter - Ana Hussein APRN.CNP - 10/02/2024 1:54 PM EST Distance health visit completed. Please call patient and help them set up a "in office visit" in 3 months. Mail labs. Please call patient, review message, then sign encounter. [facility] Telephone encounter Note * Telephone Encounter - Setve Rony - 10/02/2024 3:19 PM EST Patient need to schedule another 3 months follow up in March after December. Rony Mckeon October 02, 2024 3:22 PM [facility]12-26-2024 Telephone encounter Note* Telephone Encounter - Liz Everett - 10/02/2024 2:44 PM EST Appointment desk shows scheduled for 12/16/2024 9:00 AM Liz Everett October 02, 2024 2:44 PM [facility]12-26-2024 Telephone encounter Note* Telephone Encounter - PedroconnieRony - 10/02/2024 2:14 PM EST LM on for patient to call back to schedule 3 months follow up appointment with Ana Hussein. Lab orders mailed to patient. Rony Mckeon October 02, 2024 2:14 PM [facility]12-26-2024 Telephone encounter Note* Telephone Encounter - Ana Hussein APRN.CNP - 10/02/2024 1:54 PM EST Distance health visit completed. Please call patient and help them set up a "in office visit" in 3 months. Mail labs. Please call patient, review message, then sign encounter. [facility]12-26-2024 NoteHNO ID: [id number] Author: ANA HUSSEIN APRN.KAVYA Service: ? Author Type: Nurse Practitioner Type: Progress Notes Filed: 10/03/2024 15:06 Note Text: Subjective Virtual Visit Progress Note This is a Virtual encounter initiated for an established patient, parent or guardian not originating from a related Evaluation AND Management service provided within the previous 7 days nor leading to an Evaluation AND Management service or procedure within the next 24 hours or soonest available appointment. This Team Access Model visit is a virtual encounter. It required patient-provider interaction for the medical decision making as documented below. Byron Rodríguez has consented to this Virtual encounter. Persons Present: Byron Rodríguez Chief Complaint/Reason: Diabetes Follow-up Visit Date of encounter: 10/02/2024 Byron Rodríguez (1955), is a 69 year old male who presents for Diabetes management Important Lab History: HBA1C: 07/2016: 6.1%, 08/2016: 6.8%, 05/2017: 6%, 07/2017: 6.8%, 11/2017: 6.6%, 02/2018: 6.5%, 07/2018: 6.2%, 12/2018: 6%, 03/2019: 6.3%, 10/2019: 6.6%, 03/2020: HbA1C 6.2%. 07/2020: 6.3%, 01/2021: HbA1C 6.3%, 02/2021: 6.4%, 09/13/2021: 7.1%, 02/13/2022: HbA1C 6.6%, 08/2022: 7.4%, 12/2022: 7.1%, 03/2023: 7.3%, 07/2023: 7.5%09/2023: "6.9%" per patient at Primary Care Provider office., 02/2024: 6.6%, 05/2024: 7.1%, 06/2024: 6.6%, 09/2024: Thyroid Function Testin05/2017: TSH 1.500 (0.358-3.740 uIU/mL), free T4 0.89 (0.76-1.46 ng/dL), 07/2018: TSH 1.94 (0.358-3.74 uIU/mL), free T4 0.94 (0.76-1.46), 03/2019: TSH 1.57 (0.358-3.74 uIU/mL), free T4 0.88 (0.76-1.46), 03/2020: TSH 1.78 (0.358-3.74), free T4 0.90 (0.76-1.46), 01/2021: TSH 2.89 (0.358-3.74), 10/2021: TSH 1.87 (0.358-3.74), free T4 1.0 (0.76-1.46), 06/2022: TSH 1.95 (0.358-3.74), 07/2023: TSH 2.19 (0.358-3.74), 06/2024: TSH 1.62 (0.358-3.74) Renal Function Testin08/2016: Creatinine 0.72, 05/2017: creatinine 0.67 mg/dL, eGFR>60, 02/2018: Creatinine 0.65, 07/2018: Creatinine 0.82, 03/2019: Creatinine 0.67, 03/22/2020: Creatinine 0.72, 07/2020: Creatinine 0.71, 01/20/2021: Creatinine 0.7, 10/2021: Creatinine 0.71, 07/05/2022; Creatinine 0.71, 12/2022: Creatinine 0.74, 06/2023: creatinine 0.76, 02/2024: Creatinine 0.71, 06/2024: Creatinine 0.77, 06/2024: Creatinine 0.9 Urine for Microalbumin: 05/2017: microalbumin to creatinine ratio ok, 07/2018: Microalbumin:Creatinine Ratio ok, 03/2019: Microalbumin:Creatinine Ratio ok, 03/2020: Microalbumin:Creatinine Ratio ok, 02/2021: Microalbumin:Creatinine Ratio ok, 10/27/2021: Microalbumin:Creatinine Ratio ok, 08/2022: Microalbumin:Creatinine Ratio ok, 02/2024: Microalbumin:Creatinine Ratio ok Lipid Profile: 08/2016: TC 169, HDL 61, LDL 96 TG 58, 02/2018: TC 119, HDL 48, LDL 55, TG 78, 10/24/2018: TC 104 HDL 47 LDL 47 TG 52, 07/31/19: TC 104 HDL 52 LDL 45 TG 33, 03/2020: TC 126 HDL 56 LDL 61 TG 43, 11/02/2020: TC 110 HDL 54 LDL 49 TG 37, 10/2021: TC 115 HDL HDL 52 LDL 53 TG 48, 06/2022: TC 126 HDL 54 LDL 62 TG 50, 12/2022: TC 123 HDL 52 LDL 58 TG 67, 02/2024: TC 127 HDL 60 LDL 58 TG 46, 06/2024; TC 108 HDL 56 LDL 39 TG 65 Liver Profile: 05/2017: Liver function tests ok, 02/2018: AST 83 (9-37 U/L), ALT, Alkaline Phosphatase ok, 07/2018: LFTS ok, 03/2019: LFTS ok, 03/2020: LFTS ok, 07/2020: AST ALT Alkaline Phosphatase ok, 10/2020: AST ALT Alkaline Phosphatase ok, 01/2021: AST ALT Alkaline Phosphatase ok, 10/2021: AST ALT Alkaline Phosphatase ok, 12/25/2022: AST ALT Alkaline Phosphatase ok, 06/2024: AST 79 (15-37), ALT and Alkaline Phosphatase ok Dilated Eye Exam: Patient [...] antibody <0.6 (<1.0 U/mL), testing done at [facility]. 05/2017: c-peptide 3.6 (0.8-3.2 ng/mL) with glucose 100 mg/dL, Note (history): started on Januvia when in the hospital. Glucose is stable now, no significant low blood sugars. Has a history of pancreatitis-gall bladder induced per patient. I reviewed the association with pancreatitis and that class of drug. I reviewed signs of pancreatitis and when to go to ER. Patient elects to remain on the drug for now 12/2018: trialing discontinuation of Januvia, HbA1C is 6% and this is a higher copay drug for [facility]. Previous diabetes related labs from [facility] and [facility] re (more content not included)...[facility] History of Present illness Narrative* Ana Hussein, BLUEPRINT PROCESSOR.HOUSE PAINTER - 10/02/2024 1:49 PM EST Subjective Virtual Visit Progress Note This is a Virtual encounter initiated for an established patient, parent or guardian not originating from a related Evaluation & Management service provided within the previous 7 days nor leadingto an Evaluation & Management service or procedure within the next 24 hours or soonest available appointment. This Team Access Model visit is a virtual encounter. It required patient- provider interaction for the medical decision making as documented below. Byron Devries Andrewellie has consented to this Virtual encounter. Persons Present: Byron Rodríguez Chief Complaint/Reason: Diabetes Follow-up Visit Date of encounter: 10/02/2024 Byron Rodríguez (1955), is a 69 year old male who presents for Diabetes management Important Lab History: HBA1C: 07/2016: 6.1%, 08/2016: 6.8%, 05/2017: 6%, 07/2017: 6.8%, 11/2017: 6.6%, 02/2018: 6.5%, 07/2018: 6.2%, 12/2018: 6%, 03/2019: 6.3%, 10/2019: 6.6%, 03/2020: HbA1C 6.2%. 07/2020: 6.3%, 01/2021: HbA1C 6.3%, 02/2021: 6.4%, 09/13/2021: 7.1%, 02/13/2022: HbA1C 6.6%, 08/2022: 7.4%, 12/2022: 7.1%, 03/2023: 7.3%, 07/2023: 7.5%09/2023: "6.9%" per patient at Primary Care Provider office., 02/2024: 6.6%, 05/2024: 7.1%, 06/2024: 6.6%, 09/2024: Thyroid Function Testin05/2017: TSH 1.500 (0.358-3.740 uIU/mL), free T4 0.89 (0.76-1.46 ng/dL), 07/2018: TSH 1.94 (0.358-3.74 uIU/mL), free T4 0.94 (0.76- 1.46), 03/2019: TSH 1.57 (0.358-3.74 uIU/mL), free T4 0.88 (0.76-1.46), 03/2020: TSH 1.78 (0.358-3.74), free T4 0.90 (0.76-1.46), 01/2021: TSH 2.89 (0.358-3.74), 10/2021: TSH 1.87 (0.358-3.74), free T4 1.0 (0.76-1.46), 06/2022: TSH 1.95 (0.358-3.74), 07/2023: TSH 2.19 (0.358-3.74), 06/2024: TSH 1.62 (0.358-3.74) Renal Function Testin08/2016: Creatinine 0.72, 05/2017: creatinine 0.67 mg/dL, eGFR>60, 02/2018: Creatinine 0.65, 07/2018: Creatinine 0.82, 03/2019: Creatinine 0.67, 03/22/2020: Creatinine 0.72, 07/2020: Creatinine 0.71, 01/20/2021: Creatinine 0.7, 10/2021: Creatinine 0.71, 07/05/2022; Creatinine 0.71, 12/2022: Creatinine 0.74, 06/2023: creatinine 0.76, 02/2024: Creatinine 0.71, 06/2024: Creatinine 0.77, 06/2024: Creatinine 0.9 Urine for Microalbumin: 05/2017: microalbumin to creatinine ratio ok, 07/2018: Microalbumin:Creatinine Ratio ok, 03/2019: Microalbumin:Creatinine Ratio ok, 03/2020: Microalbumin:Creatinine Ratio ok, 02/2021: Microalbumin:Creatinine Ratio ok, 10/27/2021: Microalbumin:Creatinine Ratio ok, 08/2022: Microalb umin:Creatinine Ratio ok, 02/2024: Microalbumin:Creatinine Ratio ok Lipid Profile: 08/2016: TC 169, HDL 61, LDL 96 TG 58, 02/2018: TC 119, HDL 48, LDL 55, TG 78, 10/24/2018: TC 104 HDL 47 LDL 47 TG 52, 07/31/19: TC 104 HDL 52 LDL 45 TG 33, 03/2020: TC 126 HDL 56 LDL 61 TG 43, 11/02/2020: TC 110 HDL 54 LDL 49 TG 37, 10/2021: TC 115 HDL HDL 52 LDL 53 TG 48, 06/2022: TC 126HDL 54 LDL 62 TG 50, 12/2022: TC 123 HDL 52 LDL 58 TG 67, 02/2024: TC 127 HDL 60 LDL 58 TG 46, 06/2024; TC 108 HDL 56 LDL 39 TG 65 Liver Profile: 05/2017: Liver function tests ok, 02/2018: AST 83 (9-37 U/L), ALT, Alkaline Phosphatase ok, 07/2018: LFTS ok, 03/2019: LFTS ok, 03/2020: LFTS ok, 07/2020: AST ALT Alkaline Phosphatase ok, 10/2020: AST ALT Alkaline Phosphatase ok, 01/2021: AST ALT Alkaline Phosphatase ok, 10/2021: AST ALT Alkaline Phosphatase ok, 12/25/2022: AST ALT Alkaline Phosphatase ok, 06/2024: AST 79 (15- 37), ALT and Alkaline Phosphatase ok Dilated Eye Exam: Patient [...] (CHERYL-65) antibody <5 0 (<5.0 IU/mL), insulin autoantibody<0.4 (<0.4 U/mL), IA-2 antibody <0.6 (<1.0 U/mL), testing done at [facility]. 05/2017: c-peptide 3.6 (0.8-3.2 ng/mL) with glucose 100 mg/dL, Note (history): started on Januvia when in the hospital. Glucose is stable now, no significant low blood sugars. Has a history of pancreatitis-gall bladder induced per patient. I reviewed the association with pancreatitis and that class of drug. I reviewed signs of pancreatitis and when to go to ER. Patient elects to remain on the drug for now 12/2018: trialing discontinuation of Januvia, HbA1C is 6% and this is a higher copay drug for [facility]. Previous diabetes related labs from [facility] reviewed prior to today's office visit. Any changes made at our last diabetes management visit were abstracted accordingly (if applicable). Today's Office Visit: Last 10 Encounter Wt Readings: Date: Wt: 06/02/2024 67.9 kg (149 lb 12.8 oz) 07/10/2023 68.7 kg (151 lb 6.4 oz) 03/15/2023 70.6 kg (155 lb 9.6 oz) 08/17/2022 72 kg (158 lb 12.8 oz) 09/15/2021 71.2 kg (157 lb) 06/08/2021 70.5 kg (155 lb 8 oz) 02/17/2021 72.2 kg (159 lb 3.2 oz) 02/01/2021 72 kg (158 lb 12.8 oz) 12/16/2019 73.5 kg (162 lb) 10/21/2019 71.7 kg (158 lb) Weight graduating high school was 130s. Lipids: on statin BEE/ARB: now on Cardiology: following: Orals: Metformin 500 mg ER two tabs at breakfast, one at supper (two at dinner now-self increased-feeling fine), jardiance 10 mg daily "self monitoring blood glucose data": per patient, "they are reasonable" out of the last 30-40 results,only 10 a bit above goal per patient. History: We discussed options in depth today. With pancreatitis hx we are avoiding Lxzziian-osfb-fivwbly-1 and Dipeptidyl peptidase-4 inhibitors. May consider sulfonylurea but we are concerned of lowblood sugar levels. Discussed actos but patient concerned about s/e. Would be a good candidate for basal insulin then we can pursue a cgm as well. Reviewed in depth. Diet: watching Exercise: -cardiac rehab at this time. Denies frequent periods of hypoglycemia VITAMIN B12 03/03/2021: vitamin b12 398 (211-319), folate ok I reviewed and updated the below Review of Systems for today's office visit. 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 Seizures (HCC) Type 2 diabetes mellitus with hyperglycemia (HCC) PAST SURGICAL HISTORY Procedure Laterality Date ABDOMINAL SURGERY HX COLONOSCOPY FLX DX W/COLLJ SPEC WHEN PFRMD 04/15/2008 COLONOSCOPY FLX DX W/COLLJ SPEC WHEN PFRMD 05/31/2021 CORONARY ARTERY BYPASS GRAFT 02/18/2018 x4 ESOPHAGOGASTRODUODENOSCOPY TRANSORAL DIAGNOSTIC 05/31/2021 HEART SURGERY HX LAPS SURG CHOLECYSTECTOMY W/CHOLANGIOGRAPHY 06/16/2009 VASCULAR SURGERY PROCEDURE FAMILY HISTORY Problem Relation Age of Onset Hypertension Mother Heart Brother Lipids Brother Social History Tobacco Use Smoking status: Never Smokeless tobacco: Former Types: Chew Substance Use Topics Alcohol use: Yes Comment: 1x/month beer Drug use: No Current Meds clopidogrel (PLAVIX) 75 mg tablet metFORMIN ER (GLUCOPHAGE XR) 500 mg 24 hr tablet TAKE 2 TABLETS BEFORE BREAKFAST AND ONE TABLET BEFORE SUPPER lisinopril (ZESTRIL) 10 mg tablet Take by mouth. blood sugar diagnostic (ONETOUCH VERIO TEST STRIPS) test strip Use as instructed 1x/day Blood-Glucose Meter (ONETOUCH VERIO METER) For monitoring sugars 1x/day lancets (ONETOUCH DELICA PLUS LANCET) 33 gauge 1x/day JARDIANCE 10 mg tablet METOPROLOL TARTRATE ORAL Take by mouth. atorvastatin (LIPITOR) 40 mg tablet phenytoin ER (DILANTIN) 100 mg ER capsule Take by mouth. 200mg every morning; PM dose alternates between 100mg and 200mg every other day. ASPIRIN ORAL Take 81 mg by mouth once daily. DOCOSAHEXANOIC ACID/EPA (FISH OIL ORAL) Take by mouth. MULTIVITAMIN TAB Take one(1) tablet daily. Objective There were no vitals taken for this visit. Physical Exam This was a telephone or virtual office visit. No physical examination was able to be performed. ASSESSMENT/PLAN: 1. Type 2 diabetes mellitus with hyperglycemia, without long-term current use of insulin ([facility]) - ICD9: 250.00, 790.29, ICD10: E11.65 - HEMOGLOBIN A1C DISTANCE HEALTH VISIT This Team Access Model visit is a virtual encounter. It required patient- provider interaction for the medical decision making as documented below. I have communicated my name and active licensure. The patient's identity and physical location wereverified at the time of this visit. Either the patient or their legal customer support representative has been informed of the risks and benefits of -- and alternatives to -- treatment through a remote evaluation andconsents to proceed with the evaluation remotely. Prefers every other visit virtual then in person. Plan of Care: 1. Recent HbA1C improved, see HPI. 2. Can continue current diabetes medications and dosages for now. 3. Total time for today's distance office visit was approximately 26 minutes including chart review, preparation, and decision making. Greater than 50% of the time was spent in counseling and/or coordination of care. 4. Answered all questions. 5. Patient verbalized understanding of all the above instructions. Ana Hussein APRN.KAVYA documented in this encounter[facility]24 NoteHNO ID: [id number] Author: ANA HUSSEIN APRN.CNP Service: ? Author Type: Nurse Practitioner Type: Progress Notes Filed: 10/02/2024 09:47 Note Text: Subjective Important Lab History: HBA1C: 07/2016: 6.1%, 08/2016: 6.8%, 05/2017: 6%, 07/2017: 6.8%, 11/2017: 6.6%, 02/2018: 6.5%, 07/2018: 6.2%, 12/2018: 6%, 03/2019: 6.3%, 10/2019: 6.6%, 03/2020: HbA1C 6.2%. 07/2020: 6.3%, 01/2021: HbA1C 6.3%, 02/2021: 6.4%, 09/13/2021: 7.1%, 02/13/2022: HbA1C 6.6%, 08/2022: 7.4%, 12/2022: 7.1%, 03/2023: 7.3%, 07/2023: 7.5%09/2023: "6.9%" per patient at Primary Care Provider office., 02/2024: 6.6%, 05/2024: 7.1%, 06/2024: 6.6%, Thyroid Function Testin05/2017: TSH 1.500 (0.358-3.740 uIU/mL), free T4 0.89 (0.76-1.46 ng/dL), 07/2018: TSH 1.94 (0.358-3.74 uIU/mL), free T4 0.94 (0.76-1.46), 03/2019: TSH 1.57 (0.358-3.74 uIU/mL), free T4 0.88 (0.76-1.46), 03/2020: TSH 1.78 (0.358-3.74), free T4 0.90 (0.76-1.46), 01/2021: TSH 2.89 (0.358-3.74), 10/2021: TSH 1.87 (0.358-3.74), free T4 1.0 (0.76-1.46), 06/2022: TSH 1.95 (0.358-3.74), 07/2023: TSH 2.19 (0.358-3.74), 06/2024: TSH 1.62 (0.358-3.74) Renal Function Testin08/2016: Creatinine 0.72, 05/2017: creatinine 0.67 mg/dL, eGFR>60, 02/2018: Creatinine 0.65, 07/2018: Creatinine 0.82, 03/2019: Creatinine 0.67, 03/22/2020: Creatinine 0.72, 07/2020: Creatinine 0.71, 01/20/2021: Creatinine 0.7, 10/2021: Creatinine 0.71, 07/05/2022; Creatinine 0.71, 12/2022: Creatinine 0.74, 06/2023: creatinine 0.76, 02/2024: Creatinine 0.71, 06/2024: Creatinine 0.77, 06/2024: Creatinine 0.9 Urine for Microalbumin: 05/2017: microalbumin to creatinine ratio ok, 07/2018: Microalbumin:Creatinine Ratio ok, 03/2019: Microalbumin:Creatinine Ratio ok, 03/2020: Microalbumin:Creatinine Ratio ok, 02/2021: Microalbumin:Creatinine Ratio ok, 10/27/2021: Microalbumin:Creatinine Ratio ok, 08/2022: Microalbumin:Creatinine Ratio ok, 02/2024: Microalbumin:Creatinine Ratio ok Lipid Profile: 08/2016: TC 169, HDL 61, LDL 96 TG 58, 02/2018: TC 119, HDL 48, LDL 55, TG 78, 10/24/2018: TC 104 HDL 47 LDL 47 TG 52, 07/31/19: TC 104 HDL 52 LDL 45 TG 33, 03/2020: TC 126 HDL 56 LDL 61 TG 43, 11/02/2020: TC 110 HDL 54 LDL 49 TG 37, 10/2021: TC 115 HDL HDL 52 LDL 53 TG 48, 06/2022: TC 126 HDL 54 LDL 62 TG 50, 12/2022: TC 123 HDL 52 LDL 58 TG 67, 02/2024: TC 127 HDL 60 LDL 58 TG 46, 06/2024; TC 108 HDL 56 LDL 39 TG 65 Liver Profile: 05/2017: Liver function tests ok, 02/2018: AST 83 (9-37 U/L), ALT, Alkaline Phosphatase ok, 07/2018: LFTS ok, 03/2019: LFTS ok, 03/2020: LFTS ok, 07/2020: AST ALT Alkaline Phosphatase ok, 10/2020: AST ALT Alkaline Phosphatase ok, 01/2021: AST ALT Alkaline Phosphatase ok, 10/2021: AST ALT Alkaline Phosphatase ok, 12/25/2022: AST ALT Alkaline Phosphatase ok, 06/2024: AST 79 (15-37), ALT and Alkaline Phosphatase ok Dilated Eye Exam: Patient [...] antibody <0.6 (<1.0 U/mL), testing done at [facility]. 05/2017: c-peptide 3.6 (0.8-3.2 ng/mL) with glucose 100 mg/dL, Note (history): started on Januvia when in the hospital. Glucose is stable now, no significant low blood sugars. Has a history of pancreatitis-gall bladder induced per patient. I reviewed the association with pancreatitis and that class of drug. I reviewed signs of pancreatitis and when to go to ER. Patient elects to remain on the drug for now 12/2018: trialing discontinuation of Januvia, HbA1C is 6% and this is a higher copay drug for Brayan. Previous diabetes related labs from [employer] systems reviewed prior to today's office visit. Any changes made at our last diabetes management visit were abstracted accordingly (if applicable). Today's Office Visit: Last 10 Encounter Wt Readings: Date: Wt: 06/02/2024 67.9 kg (149 lb 12.8 oz) 07/10/2023 68.7 kg (151 lb 6.4 oz) 03/15/2023 70.6 kg (155 lb 9.6 oz) 08/17/2022 72 kg (158 lb 12.8 oz) 09/15/2021 71.2 kg (157 lb) 06/08/2021 70.5 kg (155 lb 8 oz) 02/17/2021 72.2 kg (159 lb 3.2 oz) 02/01/2021 72 kg (158 lb 12.8 oz) 12/16/2019 73.5 kg (162 lb) 10/21/2019 71.7 kg (158 lb) Steady weightloss, advised to notify Primary Care Provider at next visit, sooner if it persists. Please get thyroid levels done that were ordered. Patient does actively exercise and watch diet. Weight graduating high school was 130s. Lipids: on statin BEE/ARB: now on Cardiology: following: Orals: Metformin 500 mg ER two ta (more content not included)...[facility]12-26-[facility]24 History of Present illness Narrative* Ana Hussein, KEITH.HOUSE PAINTER - 10/02/2024 9:45 AM EST Subjective Important Lab History: HBA1C: 07/2016: 6.1%, 08/2016: 6.8%, 05/2017: 6%, 07/2017: 6.8%, 11/2017: 6.6%, 02/2018: 6.5%, 07/2018: 6.2%, 12/2018: 6%, 03/2019: 6.3%, 10/2019: 6.6%, 03/2020: HbA1C 6.2%. 07/2020: 6.3%, 01/2021: HbA1C 6.3%, 02/2021: 6.4%, 09/13/2021: 7.1%, 02/13/2022: HbA1C 6.6%, 08/2022: 7.4%, 12/2022: 7.1%, 03/2023: 7.3%, 07/2023: 7.5%09/2023: "6.9%" per patient at Primary Care Provider office., 02/2024: 6.6%, 05/2024: 7.1%, 06/2024: 6.6%, Thyroid Function Testin05/2017: TSH 1.500 (0.358-3.740 uIU/mL), free T4 0.89 (0.76-1.46 ng/dL), 07/2018: TSH 1.94 (0.358-3.74 uIU/mL), free T4 0.94 (0.76- 1.46), 03/2019: TSH 1.57 (0.358-3.74 uIU/mL), free T4 0.88 (0.76-1.46), 03/2020: TSH 1.78 (0.358-3.74), free T4 0.90 (0.76-1.46), 01/2021: TSH 2.89 (0.358-3.74), 10/2021: TSH 1.87 (0.358-3.74), free T4 1.0 (0.76-1.46), 06/2022: TSH 1.95 (0.358-3.74), 07/2023: TSH 2.19 (0.358-3.74), 06/2024: TSH 1.62 (0.358-3.74) Renal Function Testin08/2016: Creatinine 0.72, 05/2017: creatinine 0.67 mg/dL, eGFR>60, 02/2018: Creatinine 0.65, 07/2018: Creatinine 0.82, 03/2019: Creatinine 0.67, 03/22/2020: Creatinine 0.72, 07/2020: Creatinine 0.71, 01/20/2021: Creatinine 0.7, 10/2021: Creatinine 0.71, 07/05/2022; Creatinine 0.71, 12/2022: Creatinine 0.74, 06/2023: creatinine 0.76, 02/2024: Creatinine 0.71, 06/2024: Creatinine 0.77, 06/2024: Creatinine 0.9 Urine for Microalbumin: 05/2017: microalbumin to creatinine ratio ok, 07/2018: Microalbumin:Creatinine Ratio ok, 03/2019: Microalbumin:Creatinine Ratio ok, 03/2020: Microalbumin:Creatinine Ratio ok, 02/2021: Microalbumin:Creatinine Ratio ok, 10/27/2021: Microalbumin:Creatinine Ratio ok, 08/2022: Microalb umin:Creatinine Ratio ok, 02/2024: Microalbumin:Creatinine Ratio ok Lipid Profile: 08/2016: TC 169, HDL 61, LDL 96 TG 58, 02/2018: TC 119, HDL 48, LDL 55, TG 78, 10/24/2018: TC 104 HDL 47 LDL 47 TG 52, 07/31/19: TC 104 HDL 52 LDL 45 TG 33, 03/2020: TC 126 HDL 56 LDL 61 TG 43, 11/02/2020: TC 110 HDL 54 LDL 49 TG 37, 10/2021: TC 115 HDL HDL 52 LDL 53 TG 48, 06/2022: TC 126HDL 54 LDL 62 TG 50, 12/2022: TC 123 HDL 52 LDL 58 TG 67, 02/2024: TC 127 HDL 60 LDL 58 TG 46, 06/2024; TC 108 HDL 56 LDL 39 TG 65 Liver Profile: 05/2017: Liver function tests ok, 02/2018: AST 83 (9-37 U/L), ALT, Alkaline Phosphatase ok, 07/2018: LFTS ok, 03/2019: LFTS ok, 03/2020: LFTS ok, 07/2020: AST ALT Alkaline Phosphatase ok, 10/2020: AST ALT Alkaline Phosphatase ok, 01/2021: AST ALT Alkaline Phosphatase ok, 10/2021: AST ALT Alkaline Phosphatase ok, 12/25/2022: AST ALT Alkaline Phosphatase ok, 06/2024: AST 79 (15- 37), ALT and Alkaline Phosphatase ok Dilated Eye Exam: Patient [...] (CHERYL-65) antibody <5 0 (<5.0 IU/mL), insulin autoantibody<0.4 (<0.4 U/mL), IA-2 antibody <0.6 (<1.0 U/mL), testing done at [facility]. 05/2017: c-peptide 3.6 (0.8-3.2 ng/mL) with glucose 100 mg/dL, Note (history): started on Januvia when in the hospital. Glucose is stable now, no significant low blood sugars. Has a history of pancreatitis-gall bladder induced per patient. I reviewed the association with pancreatitis and that class of drug. I reviewed signs of pancreatitis and when to go to ER. Patient elects to remain on the drug for now 12/2018: trialing discontinuation of Januvia, HbA1C is 6% and this is a higher copay drug for Brayan. Previous diabetes related labs from [facility] and [facility] reviewed prior to today's office visit. Any changes made at our last diabetes management visit were abstracted accordingly (if applicable). Today's Office Visit: Last 10 Encounter Wt Readings: Date: Wt: 06/02/2024 67.9 kg (149 lb 12.8 oz) 07/10/2023 68.7 kg (151 lb 6.4 oz) 03/15/2023 70.6 kg (155 lb 9.6 oz) 08/17/2022 72 kg (158 lb 12.8 oz) 09/15/2021 71.2 kg (157 lb) 06/08/2021 70.5 kg (155 lb 8 oz) 02/17/2021 72.2 kg (159 lb 3.2 oz) 02/01/2021 72 kg (158 lb 12.8 oz) 12/16/2019 73.5 kg (162 lb) 10/21/2019 71.7 kg (158 lb) Steady weightloss, advised to notify Primary Care Provider at next visit, sooner if it persists. Please get thyroid levels done that were ordered. Patient does actively exercise and watch diet. Weight graduating high school was 130s. Lipids: on statin BEE/ARB: now on Cardiology: following: Orals: Metformin 500 mg ER two tabs at breakfast, one at supper, jardiance 10 mg daily "self monitoring blood glucose data": see logs. Consistent fasting elevations generally 20-30 points above goal, majority daytime readings ok. We discussed options in depth today. With pancreatitis hx we are avoiding Binzjnhr-jhyf-[id number]-1 and Dipeptidyl peptidase-4 inhibitors. May consider sulfonylurea but we are concerned of low blood sugar levels. Discussed actos but patient concerned about s/e. Would be a good candidate for basal insulin then we can pursue a cgm as well. Reviewed in depth. Diet: watching, a lot of salads. Exercise: 3x/week Denies frequent periods of hypoglycemia VITAMIN B12 03/03/2021: vitamin b12 398 (211-449), folate ok I reviewed and updated the below Review of Systems for today's office visit. 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 Seizures (HCC) Type 2 diabetes mellitus with hyperglycemia (HCC) PAST SURGICAL HISTORY Procedure Laterality Date ABDOMINAL SURGERY HX COLONOSCOPY FLX DX W/COLLJ SPEC WHEN PFRMD 04/15/2008 COLONOSCOPY FLX DX W/COLLJ SPEC WHEN PFRMD 05/31/2021 CORONARY ARTERY BYPASS GRAFT 02/18/2018 x4 ESOPHAGOGASTRODUODENOSCOPY TRANSORAL DIAGNOSTIC 05/31/2021 HEART SURGERY HX LAPS SURG CHOLECYSTECTOMY W/CHOLANGIOGRAPHY 06/16/2009 VASCULAR SURGERY PROCEDURE FAMILY HISTORY Problem Relation Age of Onset Hypertension Mother Heart Brother Lipids Brother Social History Tobacco Use Smoking status: Never Smokeless tobacco: Former Types: Chew Substance Use Topics Alcohol use: Yes Comment: 1x/month beer Drug use: No Current Meds metFORMIN ER (GLUCOPHAGE XR) 500 mg 24 hr tablet TAKE 2 TABLETS BEFORE BREAKFAST AND ONE TABLET BEFORE SUPPER lisinopril (ZESTRIL) 10 mg tablet Take by mouth. blood sugar diagnostic (ONETOUCH VERIO TEST STRIPS) test strip Use as instructed 1x/day Blood-Glucose Meter (ONETOUCH VERIO METER) For monitoring sugars 1x/day lancets (ONETOUCH DELICA PLUS LANCET) 33 gauge 1x/day JARDIANCE 10 mg tablet METOPROLOL TARTRATE ORAL Take by mouth. atorvastatin (LIPITOR) 40 mg tablet phenytoin ER (DILANTIN) 100 mg ER capsule Take by mouth. 200mg every morning; PM dose alternates between 100mg and 200mg every other day. ASPIRIN ORAL Take 81 mg by mouth once daily. DOCOSAHEXANOIC ACID/EPA (FISH OIL ORAL) Take by mouth. MULTIVITAMIN TAB Take one(1) tablet daily. Objective There were no vitals taken for this visit. Physical Exam documented in this encounterReg[facility]24 Telephone encounter Note * Telephone Encounter - Ana Hussein APRN.KAVYA - 07/22/2024 12:03 PM EDT I called patient and answered his questions. He will trial the previous dosing of Metformin and if tolerating will notify me for updated Prescription and plan of care [facility] Miscellaneous Notes* Telephone Encounter - Ana Hussein APRN.CNP - 07/22/2024 12:03 PM EDT I called patient and answered his questions. He will trial the previous dosing of Metformin and if tolerating will notify me for updated Prescription and plan of care documented in this encounterReg[facility]09-13-2024 Telephone encounter Note * Telephone Encounter - Aaliyah Joseph MA - 06/20/2024 4:07 PM EDT Pharmacy interfaced requesting the following refill. Requested Prescriptions Pending Prescriptions Disp Refills metFORMIN ER (GLUCOPHAGE XR) 500 mg 24 hr tablet [Pharmacy Med Name: METFORMIN HCL ER TABS 500MG] 360 tablet 3 Sig: TAKE 2 TABLETS BEFORE BREAKFAST AND SUPPER Patient last appointment: 06/02/2024 Next Appointment: 10/02/2024 Patient Phone numbers: [phone] (home) Request is for script(s) to be escript to pharmacy. Aaliyah Joseph MA [facility]-13-[facility] Miscellaneous Notes* Telephone Encounter - Aaliyah Joseph MA - 06/20/2024 4:07 PM EDT Pharmacy interfaced requesting the following refill. Requested Prescriptions Pending Prescriptions Disp Refills metFORMIN ER (GLUCOPHAGE XR) 500 mg 24 hr tablet [Pharmacy Med Name: METFORMIN HCL ER TABS 500MG] 360 tablet 3 Sig: TAKE 2 TABLETS BEFORE BREAKFAST AND SUPPER Patient last appointment: 06/02/2024 Next Appointment: 10/02/2024 Patient Phone numbers: [phone] (home) Request is for script(s) to be escript to pharmacy. Aaliyah Joseph MA documented in this encounterReg[facility]09-05-2024 Telephone encounter Note * Telephone Encounter - Ana Hussein APRN.HOUSE PAINTER - 06/12/2024 5:45 PM EDT 06/2024: Creatinine 0.77 06/2024: TSH 1.62 (0.358-3.74) Labs ok Please call patient, review message, then sign encounter. [facility]-05-[facility] Miscellaneous Notes* Telephone Encounter - Ana Hussein APRN.KAVYA - 06/12/2024 5:45 PM EDT 06/2024: Creatinine 0.77 06/2024: TSH 1.62 (0.358-3.74) Labs ok Please call patient, review message, then sign encounter. * Telephone Encounter - Sneha Rascon LPN - 06/12/2024 5:26 PM EDT Pt's lab results scanned into pt's chart Sneha Rascon LPN documented in this encounterRegency [facility]09-05-2024 Telephone encounter Note * Telephone Encounter - Sneha Rascon LPN - 06/12/2024 5:26 PM EDT Pt's lab results scanned into pt's chart Sneha Rascon LPN [facility] History of Present illness Narrative* Ana Hussein, KEITH.HOUSE PAINTER - 06/02/2024 2:52 PM EDT Subjective Date of encounter: 06/02/2024 Byron Rodríguez (1955), is a 68 year old male who presents for Diabetes management Important Lab History: HBA1C: 07/2016: 6.1%, 08/2016: 6.8%, 05/2017: 6%, 07/2017: 6.8%, 11/2017: 6.6%, 02/2018: 6.5%, 07/2018: 6.2%, 12/2018: 6%, 03/2019: 6.3%, 10/2019: 6.6%, 03/2020: HbA1C 6.2%. 07/2020: 6.3%, 01/2021: HbA1C 6.3%, 02/2021: 6.4%, 09/13/2021: 7.1%, 02/13/2022: HbA1C 6.6%, 08/2022: 7.4%, 12/2022: 7.1%, 03/2023: 7.3%, 07/2023: 7.5%09/2023: "6.9%" per patient at Primary Care Provider office., 02/2024: 6.6%, 05/2024: 7.1% Thyroid Function Testin05/2017: TSH 1.500 (0.358-3.740 uIU/mL), free T4 0.89 (0.76-1.46 ng/dL), 07/2018: TSH 1.94 (0.358-3.74 uIU/mL), free T4 0.94 (0.76- 1.46), 03/2019: TSH 1.57 (0.358-3.74 uIU/mL), free T4 0.88 (0.76-1.46), 03/2020: TSH 1.78 (0.358-3.74), free T4 0.90 (0.76-1.46), 01/2021: TSH 2.89 (0.358-3.74), 10/2021: TSH 1.87 (0.358-3.74), free T4 1.0 (0.76-1.46), 06/2022: TSH 1.95 (0.358-3.74), 07/2023: TSH 2.19 (0.358-3.74) Renal Function Testin08/2016: Creatinine 0.72, 05/2017: creatinine 0.67 mg/dL, eGFR>60, 02/2018: Creatinine 0.65, 07/2018: Creatinine 0.82, 03/2019: Creatinine 0.67, 03/22/2020: Creatinine 0.72, 07/2020: Creatinine 0.71, 01/20/2021: Creatinine 0.7, 10/2021: Creatinine 0.71, 07/05/2022; Creatinine 0.71, 12/2022: Creatinine 0.74, 06/2023: creatinine 0.76, 02/2024: Creatinine 0.71 Urine for Microalbumin: 05/2017: microalbumin to creatinine ratio ok, 07/2018: Microalbumin:Creatinine Ratio ok, 03/2019: Microalbumin:Creatinine Ratio ok, 03/2020: Microalbumin:Creatinine Ratio ok, 02/2021: Microalbumin:Creatinine Ratio ok, 10/27/2021: Microalbumin:Creatinine Ratio ok, 08/2022: Microalb umin:Creatinine Ratio ok, 02/2024: Microalbumin:Creatinine Ratio ok Lipid Profile: 08/2016: TC 169, HDL 61, LDL 96 TG 58, 02/2018: TC 119, HDL 48, LDL 55, TG 78, 10/24/2018: TC 104 HDL 47 LDL 47 TG 52, 07/31/19: TC 104 HDL 52 LDL 45 TG 33, 03/2020: TC 126 HDL 56 LDL 61 TG 43, 11/02/2020: TC 110 HDL 54 LDL 49 TG 37, 10/2021: TC 115 HDL HDL 52 LDL 53 TG 48, 06/2022: TC 126HDL 54 LDL 62 TG 50, 12/2022: TC 123 HDL 52 LDL 58 TG 67, 02/2024: TC 127 HDL 60 LDL 58 TG 46 Liver Profile: 05/2017: Liver function tests ok, 02/2018: AST 83 (9-37 U/L), ALT, Alkaline Phosphatase ok, 07/2018: LFTS ok, 03/2019: LFTS ok, 03/2020: LFTS ok, 07/2020: AST ALT Alkaline Phosphatase ok, 10/2020: AST ALT Alkaline Phosphatase ok, 01/2021: AST ALT Alkaline Phosphatase ok, 10/2021: AST ALT Alkaline Phosphatase ok, 12/25/2022: AST ALT Alkaline Phosphatase ok Dilated Eye Exam: Patient [...] (CHERYL-65) antibody <5 0 (<5.0 IU/mL), insulin autoantibody<0.4 (<0.4 U/mL), IA-2 antibody <0.6 (<1.0 U/mL), testing done at [facility]. 05/2017: c-peptide 3.6 (0.8-3.2 ng/mL) with glucose 100 mg/dL, Note (history): started on Januvia when in the hospital. Glucose is stable now, no significant low blood sugars. Has a history of pancreatitis-gall bladder induced per patient. I reviewed the association with pancreatitis and that class of drug. I reviewed signs of pancreatitis and when to go to ER. Patient elects to remain on the drug for now 12/2018: trialing discontinuation of Januvia, HbA1C is 6% and this is a higher copay drug for [facility]an. Previous diabetes related labs from [facility] reviewed prior to today's office visit. Any changes made at our last diabetes management visit were abstracted accordingly (if applicable). Today's Office Visit: Last 10 Encounter Wt Readings: Date: Wt: 06/02/2024 67.9 kg (149 lb 12.8 oz) 07/10/2023 68.7 kg (151 lb 6.4 oz) 03/15/2023 70.6 kg (155 lb 9.6 oz) 08/17/2022 72 kg (158 lb 12.8 oz) 09/15/2021 71.2 kg (157 lb) 06/08/2021 70.5 kg (155 lb 8 oz) 02/17/2021 72.2 kg (159 lb 3.2 oz) 02/01/2021 72 kg (158 lb 12.8 oz) 12/16/2019 73.5 kg (162 lb) 10/21/2019 71.7 kg (158 lb) Steady weightloss, advised to notify Primary Care Provider at next visit, sooner if it persists. Please get thyroid levels done that were ordered. Patient does actively exercise and watch diet. Weight graduating high school was 130s. Lipids: on statin BEE/ARB: now on Cardiology: following: Orals: Metformin 500 mg ER two tabs at breakfast, one at supper, jardiance 10 mg daily "self monitoring blood glucose data": see logs. Consistent fasting elevations generally 20-30 points above goal, majority daytime readings ok. We discussed options in depth today. With pancreatitis hx we are avoiding Psgrfmim-mfha-bkuimws-1 and Dipeptidyl peptidase-4 inhibitors. May consider sulfonylurea but we are concerned of low blood sugar levels. Discussed actos but patient concerned about s/e. Would be a good candidate for basal insulin then we can pursue a cgm as well. Reviewed in depth. Diet: watching, a lot of salads. Exercise: 3x/week Denies frequent periods of hypoglycemia VITAMIN B12 03/03/2021: vitamin b12 398 (211-011), folate ok I reviewed and updated the below Review of Systems for today's office visit. Review of Systems Constitutional: Negative for weight loss. HENT: Negative for ear pain. Eyes: Negative for pain. Respiratory: Negative for shortness of breath. Cardiovascular: Negative for chest pain. Gastrointestinal: Negative for abdominal pain, blood in stool and melena. Genitourinary: Negative for hematuria. Musculoskeletal: Negative for falls. Neurological: Negative for loss of consciousness. 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 No date: Seizures (HCC) No date: Type 2 diabetes mellitus with hyperglycemia (HCC) PAST SURGICAL HISTORY No date: ABDOMINAL SURGERY HX 04/15/2008: COLONOSCOPY FLX DX W/COLLJ SPEC WHEN PFRMD 05/31/2021: COLONOSCOPY FLX DX W/COLLJ SPEC WHEN PFRMD 02/18/2018: CORONARY ARTERY BYPASS GRAFT Comment: x4 05/31/2021: ESOPHAGOGASTRODUODENOSCOPY TRANSORAL DIAGNOSTIC No date: HEART SURGERY HX 06/16/2009: LAPS SURG CHOLECYSTECTOMY W/CHOLANGIOGRAPHY No date: VASCULAR SURGERY PROCEDURE FAMILY HISTORY Problem Relation Age of Onset Hypertension Mother Heart Brother Lipids Brother Social History Tobacco Use Smoking status: Never Smokeless tobacco: Former Types: Chew Substance Use Topics Alcohol use: Yes Comment: 1x/month beer Drug use: No Current Meds lisinopril (ZESTRIL) 10 mg tablet Take by mouth. metFORMIN ER (GLUCOPHAGE XR) 500 mg 24 hr tablet TAKE 2 TABLETS BEFORE BREAKFAST AND SUPPER JARDIANCE 10 mg tablet METOPROLOL TARTRATE ORAL Take by mouth. atorvastatin (LIPITOR) 40 mg tablet phenytoin ER (DILANTIN) 100 mg ER capsule Take by mouth. 200mg every morning; PM dose alternates between 100mg and 200mg every other day. ASPIRIN ORAL Take 81 mg by mouth once daily. DOCOSAHEXANOIC ACID/EPA (FISH OIL ORAL) Take by mouth. MULTIVITAMIN TAB Take one(1) tablet daily. blood sugar diagnostic (ONETOUCH VERIO TEST STRIPS) test strip Use as instructed 1x/day Blood-Glucose Meter (ONETOUCH VERIO METER) For monitoring sugars 1x/day lancets (ONETOUCH DELICA PLUS LANCET) 33 gauge 1x/day Objective BP 150/82 Ht 167.6 cm (5' 6") Wt 67.9 kg (149 lb 12.8 oz) BMI 24.18 kg/m Physical Exam Constitutional: General: He is not in acute distress. Appearance: He is not toxic-appearing. HENT: Head: Normocephalic and atraumatic. Eyes: General: No scleral icterus. Conjunctiva/sclera: Conjunctivae normal. Cardiovascular: Rate and Rhythm: Normal rate and regular rhythm. Pulmonary: Effort: Pulmonary effort is normal. No respiratory distress. Breath sounds: Normal breath sounds. No wheezing or rales. Skin: General: Skin is warm. Neurological: Mental Status: He is alert. Comments: -Sensory: Monofilament Exam- (1) Left Foot Positive, (2) Left Foot Positive, (3) Left Foot Positive, (4) Left Foot Positive (1) Right Foot Positive, (2) Right Foot Positive, (3) Right Foot Positive, (4) Right Foot Positive Stout: (1) around area of interphalangeal joint of the hallux, (2) around 1st metatarsal head, (3) around 3rd metatarsal head, (4) around 5th metatarsal head Left Foot: No ulceration, Vesicle/Bulla Right Foot: No ulceration, Vesicle/Bulla Psychiatric: Mood and Affect: Mood and affect normal. Mood is not anxious. Judgment: Judgment normal. ASSESSMENT/PLAN: 1. Type 2 diabetes mellitus with hyperglycemia, without long-term current use of insulin ([facility]) - ICD9: 250.00, 790.29, ICD10: E11.65 - HEMOGLOBIN A1C (POC) - THYROID STIMULATING HORMONE - CREATININE BLD Plan of Care: 1. Can continue current diabetes medications and dosages for now. 2. Notify me in between visits if glycemia is trending above/below goals. 3. Total time for today's office visit was greater than 30 minutes. Greater than 50% of the time was spent in counseling and/or coordination of care. 4. Self monitoring blood glucose log sheet(s) were given to the patient. Instructed to fill out sheets and bring log to next visit. 5. Answered all questions. 6. Patient verbalized understanding of all the above instructions. 7. Discussed therapeutic lifestyle changes. Ana Hussein APRN.KAVYA documented in this encounterReg[facility]24 History of Present illness Narrative* Ana Hussein APRN.KAVYA - 06/02/2024 8:23 AM EDT Subjective Important Lab History: HBA1C: 07/2016: 6.1%, 08/2016: 6.8%, 05/2017: 6%, 07/2017: 6.8%, 11/2017: 6.6%, 02/2018: 6.5%, 07/2018: 6.2%, 12/2018: 6%, 03/2019: 6.3%, 10/2019: 6.6%, 03/2020: HbA1C 6.2%. 07/2020: 6.3%, 01/2021: HbA1C 6.3%, 02/2021: 6.4%, 09/13/2021: 7.1%, 02/13/2022: HbA1C 6.6%, 08/2022: 7.4%, 12/2022: 7.1%, 03/2023: 7.3%, 07/2023: 7.5%09/2023: "6.9%" per patient at Primary Care Provider office., 02/2024: 6.6%, Thyroid Function Testin05/2017: TSH 1.500 (0.358-3.740 uIU/mL), free T4 0.89 (0.76-1.46 ng/dL), 07/2018: TSH 1.94 (0.358-3.74 uIU/mL), free T4 0.94 (0.76- 1.46), 03/2019: TSH 1.57 (0.358-3.74 uIU/mL), free T4 0.88 (0.76-1.46), 03/2020: TSH 1.78 (0.358-3.74), free T4 0.90 (0.76-1.46), 01/2021: TSH 2.89 (0.358-3.74), 10/2021: TSH 1.87 (0.358-3.74), free T4 1.0 (0.76-1.46), 06/2022: TSH 1.95 (0.358-3.74), 07/2023: TSH 2.19 (0.358-3.74) Renal Function Testin08/2016: Creatinine 0.72, 05/2017: creatinine 0.67 mg/dL, eGFR>60, 02/2018: Creatinine 0.65, 07/2018: Creatinine 0.82, 03/2019: Creatinine 0.67, 03/22/2020: Creatinine 0.72, 07/2020: Creatinine 0.71, 01/20/2021: Creatinine 0.7, 10/2021: Creatinine 0.71, 07/05/2022; Creatinine 0.71, 12/2022: Creatinine 0.74, 06/2023: creatinine 0.76, 02/2024: Creatinine 0.71 Urine for Microalbumin: 05/2017: microalbumin to creatinine ratio ok, 07/2018: Microalbumin:Creatinine Ratio ok, 03/2019: Microalbumin:Creatinine Ratio ok, 03/2020: Microalbumin:Creatinine Ratio ok, 02/2021: Microalbumin:Creatinine Ratio ok, 10/27/2021: Microalbumin:Creatinine Ratio ok, 08/2022: Microalb umin:Creatinine Ratio ok, 02/2024: Microalbumin:Creatinine Ratio ok Lipid Profile: 08/2016: TC 169, HDL 61, LDL 96 TG 58, 02/2018: TC 119, HDL 48, LDL 55, TG 78, 10/24/2018: TC 104 HDL 47 LDL 47 TG 52, 07/31/19: TC 104 HDL 52 LDL 45 TG 33, 03/2020: TC 126 HDL 56 LDL 61 TG 43, 11/02/2020: TC 110 HDL 54 LDL 49 TG 37, 10/2021: TC 115 HDL HDL 52 LDL 53 TG 48, 06/2022: TC 126HDL 54 LDL 62 TG 50, 12/2022: TC 123 HDL 52 LDL 58 TG 67, 02/2024: TC 127 HDL 60 LDL 58 TG 46 Liver Profile: 05/2017: Liver function tests ok, 02/2018: AST 83 (9-37 U/L), ALT, Alkaline Phosphatase ok, 07/2018: LFTS ok, 03/2019: LFTS ok, 03/2020: LFTS ok, 07/2020: AST ALT Alkaline Phosphatase ok, 10/2020: AST ALT Alkaline Phosphatase ok, 01/2021: AST ALT Alkaline Phosphatase ok, 10/2021: AST ALT Alkaline Phosphatase ok, 12/25/2022: AST ALT Alkaline Phosphatase ok Dilated Eye Exam: Patient [...] (CHERYL-65) antibody <5 0 (<5.0 IU/mL), insulin autoantibody<0.4 (<0.4 U/mL), IA-2 antibody <0.6 (<1.0 U/mL), testing done at [facility]. 05/2017: c-peptide 3.6 (0.8-3.2 ng/mL) with glucose 100 mg/dL, Note (history): started on Januvia when in the hospital. Glucose is stable now, no significant low blood sugars. Has a history of pancreatitis-gall bladder induced per patient. I reviewed the association with pancreatitis and that class of drug. I reviewed signs of pancreatitis and when to go to ER. Patient elects to remain on the drug for now 12/2018: trialing discontinuation of Januvia, HbA1C is 6% and this is a higher copay drug for Brayan. Previous diabetes related labs from [facility] reviewed prior to today's office visit. Any changes made at our last diabetes management visit were abstracted accordingly (if applicable). Today's Office Visit: Lipids: on statin BEE/ARB: now on Cardiology: following: Orals: Metformin 500 mg ER two tabs at breakfast, one at supper, jardiance 10 mg daily "self monitoring blood glucose data": none to review. States doing well, recent HbA1C improving. Diet: watching Exercise:occasional Denies frequent periods of hypoglycemia VITAMIN B12 03/03/2021: vitamin b12 398 (211911), folate ok I reviewed and updated the below Review of Systems for today's office visit. 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 No date: Seizures (HCC) No date: Type 2 diabetes mellitus with hyperglycemia (HCC) PAST SURGICAL HISTORY No date: ABDOMINAL SURGERY HX 04/15/2008: COLONOSCOPY FLX DX W/COLLJ SPEC WHEN PFRMD 05/31/2021: COLONOSCOPY FLX DX W/COLLJ SPEC WHEN PFRMD 02/18/2018: CORONARY ARTERY BYPASS GRAFT Comment: x4 05/31/2021: ESOPHAGOGASTRODUODENOSCOPY TRANSORAL DIAGNOSTIC No date: HEART SURGERY HX 06/16/2009: LAPS SURG CHOLECYSTECTOMY W/CHOLANGIOGRAPHY No date: VASCULAR SURGERY PROCEDURE FAMILY HISTORY Problem Relation Age of Onset Hypertension Mother Heart Brother Lipids Brother Social History Tobacco Use Smoking status: Never Smokeless tobacco: Former Types: Chew Substance Use Topics Alcohol use: Yes Comment: 1x/month beer Drug use: No Current Meds metFORMIN ER (GLUCOPHAGE XR) 500 mg 24 hr tablet TAKE 2 TABLETS BEFORE BREAKFAST AND SUPPER lisinopril (ZESTRIL) 20 mg tablet JARDIANCE 10 mg tablet Blood-Glucose Meter (PDC BiotechTOUCH VERIO METER) For monitoring sugars 1x/day lancets (PDC BiotechTOUCH DELICA PLUS LANCET) 33 gauge 1x/day blood sugar diagnostic (ONETOUCH VERIO TEST STRIPS) test strip Use as instructed 1x/day METOPROLOL TARTRATE ORAL Take by mouth. atorvastatin (LIPITOR) 40 mg tablet phenytoin ER (DILANTIN) 100 mg ER capsule Take by mouth. 200mg every morning; PM dose alternates between 100mg and 200mg every other day. ASPIRIN ORAL Take 81 mg by mouth once daily. DOCOSAHEXANOIC ACID/EPA (FISH OIL ORAL) Take by mouth. MULTIVITAMIN TAB Take one(1) tablet daily. Objective There were no vitals taken for this visit. Physical Exam documented in this encounterRegency Hospital [facility]08-23-2023 Miscellaneous Notes* Telephone Encounter - Ana Hussein APRN.CNP - 05/30/2023 2:39 PM EDT I sent in onetouch but kept the others active as well. * Telephone Encounter - Ana Hussein APRN.KAVYA - 05/29/2023 10:16 AM EDT Pharmacy requesting to switch to onetouch, please verify if ok with patient. * Telephone Encounter - Christy Melvin MA - 05/29/2023 9:58 AM EDT Duplicate--[employer] message on 05/27/23 Requested Prescriptions Pending Prescriptions Disp Refills Lancets lancets [Pharmacy Med Name: LANCETS 26G] 3 Sig: USE 1 LANCET ONCE DAILY Blood-Glucose Meter (TRUE METRIX GLUCOSE METER) monitoring kit [Pharmacy Med Name: TRUE METRIX BLOOD GLUCOSE MTR] 1 Kit 1 Sig: FOR MONITORING SUGARS ONCE DAILY blood sugar diagnostic (TRUE METRIX GLUCOSE TEST STRIP) test strip [Pharmacy Med Name: TRUE METRIX GLUCOSE TEST STRIP] 100 Strip 3 Sig: USE 1 STRIP ONCE DAILY Christy Melvin.veterinary receptionist documented in this encounterRegency Hospital [facility]07-06-2023 Miscellaneous Notes* Telephone Encounter - Karol Hernandez LPN - 04/12/2023 8:46 AM EDT RAE-04/05/2023 NOV-07/10/2023 Pharmacy electronically requesting refills as follows: Requested Prescriptions Pending Prescriptions Disp Refills metFORMIN ER (GLUCOPHAGE XR) 500 mg 24 hr tablet [Pharmacy Med Name: METFORMIN ER TAB 500MG GP] 360tablet 1 Sig: TAKE 2 TABLETS BEFORE BREAKFAST AND SUPPER Please review and advise. Karol Hernandez LPN documented in this encounterRegency Hospital [facility]06-29-2023 History of Present illness Narrative* Ana Hussein APRN.KAVYA - 04/05/2023 8:06 AM EDT Subjective Virtual Visit Progress Note This is a Virtual encounter initiated for an established patient, parent or guardian not originating from a related Evaluation & Management service provided within the previous 7 days nor leadingto an Evaluation & Management service or procedure within the next 24 hours or soonest available appointment. This Team Access Model visit is a virtual encounter. It required patient- provider interaction for the medical decision making as documented below. Byron Rodríguez has consented to this Phone encounter. Persons Present: Byron Rodríguez Chief Complaint/Reason: Diabetes Follow-up Visit Date of encounter: 04/05/2023 Byron Rodríguez (1955), is a 67 year old male who presents for Diabetes management Important Lab History: HBA1C: 07/2016: 6.1%, 08/2016: 6.8%, 05/2017: 6%, 07/2017: 6.8%, 11/2017: 6.6%, 02/2018: 6.5%, 07/2018: 6.2%, 12/2018: 6%, 03/2019: 6.3%, 10/2019: 6.6%, 03/2020: HbA1C 6.2%. 07/2020: 6.3%, 01/2021: HbA1C 6.3%, 02/2021: 6.4%, 09/13/2021: 7.1%, 02/13/2022: HbA1C 6.6%, 08/2022: 7.4%, 12/2022: 7.1%, 03/2023: 7.3% Thyroid Function Testin05/2017: TSH 1.500 (0.358-3.740 uIU/mL), free T4 0.89 (0.76-1.46 ng/dL), 07/2018: TSH 1.94 (0.358-3.74 uIU/mL), free T4 0.94 (0.76- 1.46), 03/2019: TSH 1.57 (0.358-3.74 uIU/mL), free T4 0.88 (0.76-1.46), 03/2020: TSH 1.78 (0.358-3.74), free T4 0.90 (0.76-1.46), 01/2021: TSH 2.89 (0.358-3.74), 10/2021: TSH 1.87 (0.358-3.74), free T4 1.0 (0.76-1.46), 06/2022: TSH 1.95 (0.358-3.74) Renal Function Testin08/2016: Creatinine 0.72, 05/2017: creatinine 0.67 mg/dL, eGFR>60, 02/2018: Creatinine 0.65, 07/2018: Creatinine 0.82, 03/2019: Creatinine 0.67, 03/22/2020: Creatinine 0.72, 07/2020: Creatinine 0.71, 01/20/2021: Creatinine 0.7, 10/2021: Creatinine 0.71, 07/05/2022; Creatinine 0.71, 12/2022: Creatinine 0.74 Urine for Microalbumin: 05/2017: microalbumin to creatinine ratio ok, 07/2018: Microalbumin:Creatinine Ratio ok, 03/2019: Microalbumin:Creatinine Ratio ok, 03/2020: Microalbumin:Creatinine Ratio ok, 02/2021: Microalbumin:Creatinine Ratio ok, 10/27/2021: Microalbumin:Creatinine Ratio ok, 08/2022: Microalb umin:Creatinine Ratio ok Lipid Profile: 08/2016: TC 169, HDL 61, LDL 96 TG 58, 02/2018: TC 119, HDL 48, LDL 55, TG 78, 10/24/2018: TC 104 HDL 47 LDL 47 TG 52, 07/31/19: TC 104 HDL 52 LDL 45 TG 33, 03/2020: TC 126 HDL 56 LDL 61 TG 43, 11/02/2020: TC 110 HDL 54 LDL 49 TG 37, 10/2021: TC 115 HDL HDL 52 LDL 53 TG 48, 06/2022: TC 126HDL 54 LDL 62 TG 50, 12/2022: TC 123 HDL 52 LDL 58 TG 67 Liver Profile: 05/2017: Liver function tests ok, 02/2018: AST 83 (9-37 U/L), ALT, Alkaline Phosphatase ok, 07/2018: LFTS ok, 03/2019: LFTS ok, 03/2020: LFTS ok, 07/2020: AST ALT Alkaline Phosphatase ok, 10/2020: AST ALT Alkaline Phosphatase ok, 01/2021: AST ALT Alkaline Phosphatase ok, 10/2021: AST ALT Alkaline Phosphatase ok, 12/25/2022: AST ALT Alkaline Phosphatase ok Dilated Eye Exam: Patient [...] (CHERYL-65) antibody <5 0 (<5.0 IU/mL), insulin autoantibody<0.4 (<0.4 U/mL), IA-2 antibody <0.6 (<1.0 U/mL), testing done at [facility]. 05/2017: c-peptide 3.6 (0.8-3.2 ng/mL) with glucose 100 mg/dL, Note (history): started on Januvia when in the hospital. Glucose is stable now, no significant low blood sugars. Has a history of pancreatitis-gall bladder induced per patient. I reviewed the association with pancreatitis and that class of drug. I reviewed signs of pancreatitis and when to go to ER. Patient elects to remain on the drug for now 12/2018: trialing discontinuation of Januvia, HbA1C is 6% and this is a higher copay drug for Brayan. Previous diabetes related labs from [employer] systems reviewed prior to today's office visit. Any changes made at our last diabetes management visit were abstracted accordingly (if applicable). Today's Office Visit: Rakqqs-nnyubmj-be-transporter- 2 (SGLT2) inhibitors: I Discussed potential side effects of SGLT2 inhibitors, including, but not limited to, genital yeast infections, urinary tract infections, changesin urination, DKA. Notably, there are reports that this drug class can also increase risk of amputation and Naz's gangrene. Pt verbalized understanding and agreed to take this medication and will notify me if concerns. Pt also advised to stay hydrated at all times with this medication. Lipids: on statin BEE/ARB: now on Cardiology: following: Orals: Metformin 500 mg ER two tabs twice a day "self monitoring blood glucose data": this visit was to discuss additional medications for diabetesmanagement Diet: watching Exercise: more often now. Denies frequent periods of hypoglycemia VITAMIN B12 03/03/2021: vitamin b12 398 (211-281), folate ok I reviewed and updated the below Review of Systems for today's office visit. Review of Systems Constitutional: Negative for weight loss. HENT: Negative for ear pain. Eyes: Negative for pain. Respiratory: Negative for shortness of breath. Cardiovascular: Negative for chest pain. Gastrointestinal: Negative for abdominal pain, blood in stool and melena. Genitourinary: Negative for hematuria. Musculoskeletal: Negative for falls. Neurological: Negative for loss of consciousness. 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 Seizures (HCC) Type 2 diabetes mellitus with hyperglycemia (HCC) PAST SURGICAL HISTORY Procedure Laterality Date ABDOMINAL SURGERY HX COLONOSCOPY FLX DX W/COLLJ SPEC WHEN PFRMD 04/15/2008 COLONOSCOPY FLX DX W/COLLJ SPEC WHEN PFRMD 05/31/2021 CORONARY ARTERY BYPASS GRAFT 02/18/2018 x4 ESOPHAGOGASTRODUODENOSCOPY TRANSORAL DIAGNOSTIC 05/31/2021 HEART SURGERY HX LAPS SURG CHOLECYSTECTOMY W/CHOLANGIOGRAPHY 06/16/2009 VASCULAR SURGERY PROCEDURE FAMILY HISTORY Problem Relation Age of Onset Hypertension Mother Heart Brother Lipids Brother Social History Tobacco Use Smoking status: Never Smokeless tobacco: Former Types: Chew Substance Use Topics Alcohol use: Yes Comment: 1x/month beer Drug use: No Current Meds metFORMIN ER (GLUCOPHAGE XR) 500 mg 24 hr tablet TAKE 2 TABLETS BEFORE BREAKFAST AND SUPPER blood sugar diagnostic (TRUE METRIX GLUCOSE TEST STRIP) test strip 1X/DAY lisinopril (ZESTRIL, PRINIVIL) 10 mg tablet Take 10 mg by mouth once daily. lancets (ULTRA THIN LANCETS) 30 gauge 1x/day METOPROLOL TARTRATE ORAL Take by mouth. Blood-Glucose Meter monitoring kit For monitoring sugars 1x/day atorvastatin (LIPITOR) 40 mg tablet phenytoin ER (DILANTIN) 100 mg ER capsule Take by mouth. 200mg every morning; PM dose alternates between 100mg and 200mg every other day. ASPIRIN ORAL Take 81 mg by mouth once daily. DOCOSAHEXANOIC ACID/EPA (FISH OIL ORAL) Take by mouth. MULTIVITAMIN TAB Take one(1) tablet daily. Objective There were no vitals taken for this visit. Physical Exam This was a telephone or virtual office visit. No physical examination was able to be performed. ASSESSMENT/PLAN: 1. Type 2 diabetes mellitus with hyperglycemia, without long-term current use of insulin ([facility]) - ICD9: 250.00, 790.29, ICD10: E11.65 DISTANCE HEALTH VISIT This Team Access Model visit is a phone encounter. It required patient-provider interaction for themedical decision making as documented below. I have communicated my name and active licensure. The patient's identity and physical location wereverified at the time of this visit. Either the patient or their legal customer support representative has been informed of the risks and benefits of -- and alternatives to -- treatment through a remote evaluation andconsents to proceed with the evaluation remotely. Plan of Care: 1. We discussed additional options in depth today for diabetes management. Patients history of pancreatitis and seizure history limit which medications we should attempt after Metformin. We want low risk for low blood sugar which may increase risk for seizure. Patient interested in Jardiance. Sodium -yfwozev-ug-imqcbinqkcs- 2 (SGLT2) inhibitors: I Discussed potential side effects of SGLT2 inhibitors, including, but not limited to, genital yeast infections, urinary tract infections, changes in urination, DKA. Notably, there are reports that this drug class can also increase risk of amputation and Naz's gangrene. Pt verbalized understanding and agreed to take this medication and will notify me if concerns. Pt also advised to stay hydrated at all times with this medication. This information was provided to the patient if he elects to start this class of drugs in between visits. Brayan elects to wait for now and do more research on it and will message me if he elects to start it. 2. Can continue current diabetes medications and dosages for now. 3. Total time for today's distance office visit was greater than 25 minutes including chart review,preparation, and decision making. Greater than 50% of the time was spent in counseling and/or coordination of care. 4. Answered all questions. 5. Patient verbalized understanding of all the above instructions. Ana Hussein APRN.KAVYA documented in this encounterRegency Hospital [facility]06-27-2023 Miscellaneous Notes* Telephone Encounter - Anne Taylor - 04/03/2023 10:00 AM EDT LMOM to call office back and schedule phone visit. Anne Taylor April 03, 2023 10:01 AM * Telephone Encounter - Ana Hussein APRN.CNP - 04/02/2023 11:12 AM EDT Staff: please contact patient and see if they can have a telephone visit this week at 8:30 so we Can discuss alternative medications, review his history/labs and discuss potential side effects, etc.,of a new medication. Thanks. documented in this encounterRegency Hospital [facility]06-08-2023 History of Present illness Narrative* Ana Hussein APRN.CNP - 03/15/2023 8:53 AM EDT Subjective Important Lab History: HBA1C: 07/2016: 6.1%, 08/2016: 6.8%, 05/2017: 6%, 07/2017: 6.8%, 11/2017: 6.6%, 02/2018: 6.5%, 07/2018: 6.2%, 12/2018: 6%, 03/2019: 6.3%, 10/2019: 6.6%, 03/2020: HbA1C 6.2%. 07/2020: 6.3%, 01/2021: HbA1C 6.3%, 02/2021: 6.4%, 09/13/2021: 7.1%, 02/13/2022: HbA1C 6.6%, 08/2022: 7.4%, 12/2022: 7.1%, Thyroid Function Testin05/2017: TSH 1.500 (0.358-3.740 uIU/mL), free T4 0.89 (0.76-1.46 ng/dL), 07/2018: TSH 1.94 (0.358-3.74 uIU/mL), free T4 0.94 (0.76- 1.46), 03/2019: TSH 1.57 (0.358-3.74 uIU/mL), free T4 0.88 (0.76-1.46), 03/2020: TSH 1.78 (0.358-3.74), free T4 0.90 (0.76-1.46), 01/2021: TSH 2.89 (0.358-3.74), 10/2021: TSH 1.87 (0.358-3.74), free T4 1.0 (0.76-1.46), 06/2022: TSH 1.95 (0.358-3.74) Renal Function Testin08/2016: Creatinine 0.72, 05/2017: creatinine 0.67 mg/dL, eGFR>60, 02/2018: Creatinine 0.65, 07/2018: Creatinine 0.82, 03/2019: Creatinine 0.67, 03/22/2020: Creatinine 0.72, 07/2020: Creatinine 0.71, 01/20/2021: Creatinine 0.7, 10/2021: Creatinine 0.71, 07/05/2022; Creatinine 0.71, 12/2022: Creatinine 0.74 Urine for Microalbumin: 05/2017: microalbumin to creatinine ratio ok, 07/2018: Microalbumin:Creatinine Ratio ok, 03/2019: Microalbumin:Creatinine Ratio ok, 03/2020: Microalbumin:Creatinine Ratio ok, 02/2021: Microalbumin:Creatinine Ratio ok, 10/27/2021: Microalbumin:Creatinine Ratio ok, 08/2022: Microalb umin:Creatinine Ratio ok Lipid Profile: 08/2016: TC 169, HDL 61, LDL 96 TG 58, 02/2018: TC 119, HDL 48, LDL 55, TG 78, 10/24/2018: TC 104 HDL 47 LDL 47 TG 52, 07/31/19: TC 104 HDL 52 LDL 45 TG 33, 03/2020: TC 126 HDL 56 LDL 61 TG 43, 11/02/2020: TC 110 HDL 54 LDL 49 TG 37, 10/2021: TC 115 HDL HDL 52 LDL 53 TG 48, 06/2022: TC 126HDL 54 LDL 62 TG 50, 12/2022: TC 123 HDL 52 LDL 58 TG 67 Liver Profile: 05/2017: Liver function tests ok, 02/2018: AST 83 (9-37 U/L), ALT, Alkaline Phosphatase ok, 07/2018: LFTS ok, 03/2019: LFTS ok, 03/2020: LFTS ok, 07/2020: AST ALT Alkaline Phosphatase ok, 10/2020: AST ALT Alkaline Phosphatase ok, 01/2021: AST ALT Alkaline Phosphatase ok, 10/2021: AST ALT Alkaline Phosphatase ok, 12/25/2022: AST ALT Alkaline Phosphatase ok Dilated Eye Exam: Patient [...] (CHERYL-65) antibody <5 0 (<5.0 IU/mL), insulin autoantibody<0.4 (<0.4 U/mL), IA-2 antibody <0.6 (<1.0 U/mL), testing done at [facility]. 05/2017: c-peptide 3.6 (0.8-3.2 ng/mL) with glucose 100 mg/dL, Note (history): started on Januvia when in the hospital. Glucose is stable now, no significant low blood sugars. Has a history of pancreatitis-gall bladder induced per patient. I reviewed the association with pancreatitis and that class of drug. I reviewed signs of pancreatitis and when to go to ER. Patient elects to remain on the drug for now 12/2018: trialing discontinuation of Januvia, HbA1C is 6% and this is a higher copay drug for Brayan. Previous diabetes related labs from [facility] reviewed prior to today's office visit. Any changes made at our last diabetes management visit were abstracted accordingly (if applicable). Today's Office Visit: Lipids: on statin BEE/ARB: now on Cardiology: following: Orals: Metformin 500 mg ER two tabs twice a day "self monitoring blood glucose data": testing 0.4x/day, readings higher for patient past 2 weeks. More often mid 100s. See reports. Diet: watching Exercise: occasional Denies frequent periods of hypoglycemia VITAMIN B12 03/03/2021: vitamin b12 398 (211-050), folate ok I reviewed and updated the below Review of Systems for today's office visit. 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 Seizures (HCC) Type 2 diabetes mellitus with hyperglycemia (HCC) PAST SURGICAL HISTORY Procedure Laterality Date ABDOMINAL SURGERY HX COLONOSCOPY FLX DX W/COLLJ SPEC WHEN PFRMD 04/15/2008 COLONOSCOPY FLX DX W/COLLJ SPEC WHEN PFRMD 05/31/2021 CORONARY ARTERY BYPASS GRAFT 02/18/2018 x4 ESOPHAGOGASTRODUODENOSCOPY TRANSORAL DIAGNOSTIC 05/31/2021 HEART SURGERY HX LAPS SURG CHOLECYSTECTOMY W/CHOLANGIOGRAPHY 06/16/2009 VASCULAR SURGERY PROCEDURE FAMILY HISTORY Problem Relation Age of Onset Hypertension Mother Heart Brother Lipids Brother Social History Tobacco Use Smoking status: Never Smokeless tobacco: Former Types: Chew Substance Use Topics Alcohol use: Yes Comment: 1x/month beer Drug use: No Current Meds metFORMIN ER (GLUCOPHAGE XR) 500 mg 24 hr tablet TAKE 2 TABLETS BEFORE BREAKFAST AND SUPPER blood sugar diagnostic (TRUE METRIX GLUCOSE TEST STRIP) test strip 1X/DAY lisinopril (ZESTRIL, PRINIVIL) 10 mg tablet Take 10 mg by mouth once daily. lancets (ULTRA THIN LANCETS) 30 gauge 1x/day METOPROLOL TARTRATE ORAL Take by mouth. Blood-Glucose Meter monitoring kit For monitoring sugars 1x/day atorvastatin (LIPITOR) 40 mg tablet phenytoin ER (DILANTIN) 100 mg ER capsule Take by mouth. 200mg every morning; PM dose alternates between 100mg and 200mg every other day. ASPIRIN ORAL Take 81 mg by mouth once daily. DOCOSAHEXANOIC ACID/EPA (FISH OIL ORAL) Take by mouth. MULTIVITAMIN TAB Take one(1) tablet daily. Objective There were no vitals taken for this visit. Physical Exam documented in this encounterReg[facility]22 Miscellaneous Notes* Telephone Encounter - Sneha Rascon Ma - 10/05/2022 1:41 PM EST [facility]AE 08/17/2022 NOV 12/11/2022 Pharmacy electronically requesting refills as follows: Requested Prescriptions Pending Prescriptions Disp Refills metFORMIN ER (GLUCOPHAGE XR) 500 mg 24 hr tablet [Pharmacy Med Name: METFORMIN ER TAB 500MG GP] 360tablet 1 Sig: TAKE 2 TABLETS BEFORE BREAKFAST AND SUPPER Please review and advise. Sneha Rascon CMA documented in this encounterRegency Hospital [facility]11-10-2022 Instructions* Patient Instructions* Ana Hussein APRN.KAVYA - 08/17/2022 3:50 PM EST Xxvpwx-tfgvtsy-sk-transporter- 2 (SGLT2) inhibitors -look into cost Jardiance, Jeanineokana, marioga Patient educated to have ophthalmology visits at least once a year. documented in this encounterRegency Hospital [facility]11-10-2022 History of Present illness Narrative* Ana Hussein APRN.CNP - 08/17/2022 3:41 PM EST Subjective Date of encounter: 08/17/2022 Byron Rodríguez (1955), is a 67 year old male who presents for Diabetes management Important Lab History: HBA1C: 07/2016: 6.1%, 08/2016: 6.8%, 05/2017: 6%, 07/2017: 6.8%, 11/2017: 6.6%, 02/2018: 6.5%, 07/2018: 6.2%, 12/2018: 6%, 03/2019: 6.3%, 10/2019: 6.6%, 03/2020: HbA1C 6.2%. 07/2020: 6.3%, 01/2021: HbA1C 6.3%, 02/2021: 6.4%, 09/13/2021: 7.1%, 02/13/2022: HbA1C 6.6%, 08/2022: 7.4% Thyroid Function Testin05/2017: TSH 1.500 (0.358-3.740 uIU/mL), free T4 0.89 (0.76-1.46 ng/dL), 07/2018: TSH 1.94 (0.358-3.74 uIU/mL), free T4 0.94 (0.76- 1.46), 03/2019: TSH 1.57 (0.358-3.74 uIU/mL), free T4 0.88 (0.76-1.46), 03/2020: TSH 1.78 (0.358-3.74), free T4 0.90 (0.76-1.46), 01/2021: TSH 2.89 (0.358-3.74), 10/2021: TSH 1.87 (0.358-3.74), free T4 1.0 (0.76-1.46), 06/2022: TSH 1.95 (0.358-3.74) Renal Function Testin08/2016: Creatinine 0.72, 05/2017: creatinine 0.67 mg/dL, eGFR>60, 02/2018: Creatinine 0.65, 07/2018: Creatinine 0.82, 03/2019: Creatinine 0.67, 03/22/2020: Creatinine 0.72, 07/2020: Creatinine 0.71, 01/20/2021: Creatinine 0.7, 10/2021: Creatinine 0.71, 07/05/2022; Creatinine 0.71 Urine for Microalbumin: 05/2017: microalbumin to creatinine ratio ok, 07/2018: Microalbumin:Creatinine Ratio ok, 03/2019: Microalbumin:Creatinine Ratio ok, 03/2020: Microalbumin:Creatinine Ratio ok, 02/2021: Microalbumin:Creatinine Ratio ok, 10/27/2021: Microalbumin:Creatinine Ratio ok Lipid Profile: 08/2016: TC 169, HDL 61, LDL 96 TG 58, 02/2018: TC 119, HDL 48, LDL 55, TG 78, 10/24/2018: TC 104 HDL 47 LDL 47 TG 52, 07/31/19: TC 104 HDL 52 LDL 45 TG 33, 03/2020: TC 126 HDL 56 LDL 61 TG 43, 11/02/2020: TC 110 HDL 54 LDL 49 TG 37, 10/2021: TC 115 HDL HDL 52 LDL 53 TG 48, 06/2022: TC 126HDL 54 LDL 62 TG 50 Liver Profile: 05/2017: Liver function tests ok, 02/2018: AST 83 (9-37 U/L), ALT, Alkaline Phosphatase ok, 07/2018: LFTS ok, 03/2019: LFTS ok, 03/2020: LFTS ok, 07/2020: AST ALT Alkaline Phosphatase ok, 10/2020: AST ALT Alkaline Phosphatase ok, 01/2021: AST ALT Alkaline Phosphatase ok, 10/2021: AST ALT Alkaline Phosphatase ok Dilated Eye Exam: Patient [...] (CHERYL-65) antibody <5 0 (<5.0 IU/mL), insulin autoantibody<0.4 (<0.4 U/mL), IA-2 antibody <0.6 (<1.0 U/mL), testing done at [facility]. 05/2017: c-peptide 3.6 (0.8-3.2 ng/mL) with glucose 100 mg/dL, Note (history): started on Januvia when in the hospital. Glucose is stable now, no significant low blood sugars. Has a history of pancreatitis-gall bladder induced per patient. I reviewed the association with pancreatitis and that class of drug. I reviewed signs of pancreatitis and when to go to ER. Patient elects to remain on the drug for now 12/2018: trialing discontinuation of Januvia, HbA1C is 6% and this is a higher copay drug for Brayan. Previous diabetes related labs from [employer] systems reviewed prior to today's office visit. Any changes made at our last diabetes management visit were abstracted accordingly (if applicable). Today's Office Visit: Lipids: on statin BEE/ARB: now on Cardiology: following: Orals: Metformin 500 mg ER two tabs twice a day "self monitoring blood glucose data": testing 0.4x/day, readings higher for patient past 2 weeks. More often mid 100s. See reports. Diet: watching Exercise: occasional Denies frequent periods of hypoglycemia VITAMIN B12 03/03/2021: vitamin b12 398 (211911), folate ok I reviewed and updated the below Review of Systems for today's office visit. Review of Systems Constitutional: Negative for weight loss. HENT: Negative for ear pain. Eyes: Negative for pain. Respiratory: Negative for shortness of breath. Cardiovascular: Negative for chest pain. Gastrointestinal: Negative for abdominal pain, blood in stool and melena. Genitourinary: Negative for hematuria. Musculoskeletal: Negative for falls. Neurological: Negative for loss of consciousness. 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 Seizures (HCC) Type 2 diabetes mellitus with hyperglycemia (HCC) PAST SURGICAL HISTORY Procedure Laterality Date ABDOMINAL SURGERY HX COLONOSCOPY FLX DX W/COLLJ SPEC WHEN PFRMD 04/15/2008 COLONOSCOPY FLX DX W/COLLJ SPEC WHEN PFRMD 05/31/2021 CORONARY ARTERY BYPASS GRAFT 02/18/2018 x4 ESOPHAGOGASTRODUODENOSCOPY TRANSORAL DIAGNOSTIC 05/31/2021 HEART SURGERY HX LAPS SURG CHOLECYSTECTOMY W/CHOLANGIOGRAPHY 06/16/2009 VASCULAR SURGERY PROCEDURE FAMILY HISTORY Problem Relation Age of Onset Hypertension Mother Heart Brother Lipids Brother Social History Tobacco Use Smoking status: Never Smokeless tobacco: Former Types: Chew Substance Use Topics Alcohol use: Yes Comment: 1x/month beer Drug use: No Current Meds blood sugar diagnostic (TRUE METRIX GLUCOSE TEST STRIP) test strip 1X/DAY metFORMIN ER (GLUCOPHAGE XR) 500 mg 24 hr tablet TAKE 2 TABLETS BEFORE BREAKFAST AND SUPPER lisinopril (ZESTRIL, PRINIVIL) 10 mg tablet Take 10 mg by mouth once daily. lancets (ULTRA THIN LANCETS) 30 gauge 1x/day METOPROLOL TARTRATE ORAL Take by mouth. Blood-Glucose Meter monitoring kit For monitoring sugars 1x/day atorvastatin (LIPITOR) 40 mg tablet phenytoin ER (DILANTIN) 100 mg ER capsule Take by mouth. 200mg every morning; PM dose alternates between 100mg and 200mg every other day. ASPIRIN ORAL Take 81 mg by mouth once daily. DOCOSAHEXANOIC ACID/EPA (FISH OIL ORAL) Take by mouth. MULTIVITAMIN TAB Take one(1) tablet daily. Objective BP 118/66 Ht 167.6 cm (5' 6") Wt 72 kg (158 lb 12.8 oz) BMI 25.63 kg/m Physical Exam Constitutional: General: He is not in acute distress. Appearance: He is not toxic-appearing. HENT: Head: Normocephalic and atraumatic. Eyes: General: No scleral icterus. Conjunctiva/sclera: Conjunctivae normal. Cardiovascular: Rate and Rhythm: Normal rate and regular rhythm. Pulmonary: Effort: Pulmonary effort is normal. No respiratory distress. Breath sounds: Normal breath sounds. No wheezing or rales. Skin: General: Skin is warm. Neurological: Mental Status: He is alert. Comments: -Sensory: Monofilament Exam- (1) Left Foot Positive, (2) Left Foot Positive, (3) Left Foot Positive, (4) Left Foot Positive (1) Right Foot Positive, (2) Right Foot Positive, (3) Right Foot Positive, (4) Right Foot Positive Stout: (1) around area of interphalangeal joint of the hallux, (2) around 1st metatarsal head, (3) around 3rd metatarsal head, (4) around 5th metatarsal head Left Foot: No ulceration, Vesicle/Bulla Right Foot: No ulceration, Vesicle/Bulla Psychiatric: Mood and Affect: Mood and affect normal. Mood is not anxious. Judgment: Judgment normal. ASSESSMENT/PLAN: 1. Type 2 diabetes mellitus with hyperglycemia, without long-term current use of insulin (HCC) - ICD9: 250.00, 790.29, ICD10: E11.65 - HEMOGLOBIN A1C (POC) - ALBUMIN/CREAT RATIO RND UR - HEPATIC FUNCTION PNL - HGB A1C Plan of Care: 1. HbA1C 7.4%, higher. Monitor. 2. Patient will look into costs of Idbdtk-fyjebgy-fo-transporter- 2 (SGLT2) inhibitors. Has used Dipeptidyl peptidase-4 inhibitors in the past, tolerated well. However history of pancreatitis. Will recheck HbA1C at subsequent office visit. Patient asked for a serum HbA1C vs point of care test. 3. Total time for today's office visit was greater than 30 minutes. Greater than 50% of the time was spent in counseling and/or coordination of care. 4. Self monitoring blood glucose log sheet(s) were given to the patient. Instructed to fill out sheets and bring log to next visit. 5. Answered all questions. 6. Patient verbalized understanding of all the above instructions. 7. Discussed therapeutic lifestyle changes. Ana Hussein APRN.HOUSE PAINTER documented in this encounterRegency Hospital [facility]11-10-2022 History of Present illness Narrative* Ana Hussein APRN.HOUSE PAINTER - 08/17/2022 10:44 AM EST Subjective Important Lab History: HBA1C: 07/2016: 6.1%, 08/2016: 6.8%, 05/2017: 6%, 07/2017: 6.8%, 11/2017: 6.6%, 02/2018: 6.5%, 07/2018: 6.2%, 12/2018: 6%, 03/2019: 6.3%, 10/2019: 6.6%, 03/2020: HbA1C 6.2%. 07/2020: 6.3%, 01/2021: HbA1C 6.3%, 02/2021: 6.4%, 09/13/2021: 7.1%, 02/13/2022: HbA1C 6.6% Thyroid Function Testin05/2017: TSH 1.500 (0.358-3.740 uIU/mL), free T4 0.89 (0.76-1.46 ng/dL), 07/2018: TSH 1.94 (0.358-3.74 uIU/mL), free T4 0.94 (0.76- 1.46), 03/2019: TSH 1.57 (0.358-3.74 uIU/mL), free T4 0.88 (0.76-1.46), 03/2020: TSH 1.78 (0.358-3.74), free T4 0.90 (0.76-1.46), 01/2021: TSH 2.89 (0.358-3.74), 10/2021: TSH 1.87 (0.358-3.74), free T4 1.0 (0.76-1.46), 06/2022: TSH 1.95 (0.358-3.74) Renal Function Testin08/2016: Creatinine 0.72, 05/2017: creatinine 0.67 mg/dL, eGFR>60, 02/2018: Creatinine 0.65, 07/2018: Creatinine 0.82, 03/2019: Creatinine 0.67, 03/22/2020: Creatinine 0.72, 07/2020: Creatinine 0.71, 01/20/2021: Creatinine 0.7, 10/2021: Creatinine 0.71, 07/05/2022; Creatinine 0.71 Urine for Microalbumin: 05/2017: microalbumin to creatinine ratio ok, 07/2018: Microalbumin:Creatinine Ratio ok, 03/2019: Microalbumin:Creatinine Ratio ok, 03/2020: Microalbumin:Creatinine Ratio ok, 02/2021: Microalbumin:Creatinine Ratio ok, 10/27/2021: Microalbumin:Creatinine Ratio ok Lipid Profile: 08/2016: TC 169, HDL 61, LDL 96 TG 58, 02/2018: TC 119, HDL 48, LDL 55, TG 78, 10/24/2018: TC 104 HDL 47 LDL 47 TG 52, 07/31/19: TC 104 HDL 52 LDL 45 TG 33, 03/2020: TC 126 HDL 56 LDL 61 TG 43, 11/02/2020: TC 110 HDL 54 LDL 49 TG 37, 10/2021: TC 115 HDL HDL 52 LDL 53 TG 48, 06/2022: TC 126HDL 54 LDL 62 TG 50 Liver Profile: 05/2017: Liver function tests ok, 02/2018: AST 83 (9-37 U/L), ALT, Alkaline Phosphatase ok, 07/2018: LFTS ok, 03/2019: LFTS ok, 03/2020: LFTS ok, 07/2020: AST ALT Alkaline Phosphatase ok, 10/2020: AST ALT Alkaline Phosphatase ok, 01/2021: AST ALT Alkaline Phosphatase ok, 10/2021: AST ALT Alkaline Phosphatase ok Dilated Eye Exam: Patient [...] (CHERYL-65) antibody <5 0 (<5.0 IU/mL), insulin autoantibody<0.4 (<0.4 U/mL), IA-2 antibody <0.6 (<1.0 U/mL), testing done at [facility]. 05/2017: c-peptide 3.6 (0.8-3.2 ng/mL) with glucose 100 mg/dL, Note (history): started on Januvia when in the hospital. Glucose is stable now, no significant low blood sugars. Has a history of pancreatitis-gall bladder induced per patient. I reviewed the association with pancreatitis and that class of drug. I reviewed signs of pancreatitis and when to go to ER. Patient elects to remain on the drug for now 12/2018: trialing discontinuation of Januvia, HbA1C is 6% and this is a higher copay drug for Brayan. Previous diabetes related labs from [employer] [facility] reviewed prior to today's office visit. Any changes made at our last diabetes management visit were abstracted accordingly (if applicable). Today's Office Visit: Lipids: on statin BEE/ARB: now on Cardiology: following: Orals: Metformin 500 mg ER two tabs twice a day "self monitoring blood glucose data": states not testing too much, when testing reading mid 100s. Diet: watching Exercise: occasional, just hiked 5 miles. Denies frequent periods of hypoglycemia VITAMIN B12 03/03/2021: vitamin b12 398 (211-911), folate ok I reviewed and updated the below Review of Systems for today's office visit. 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 Seizures (HCC) Type 2 diabetes mellitus with hyperglycemia (HCC) PAST SURGICAL HISTORY Procedure Laterality Date ABDOMINAL SURGERY HX COLONOSCOPY FLX DX W/COLLJ SPEC WHEN PFRMD 04/15/2008 COLONOSCOPY FLX DX W/COLLJ SPEC WHEN PFRMD 05/31/2021 CORONARY ARTERY BYPASS GRAFT 02/18/2018 x4 ESOPHAGOGASTRODUODENOSCOPY TRANSORAL DIAGNOSTIC 05/31/2021 HEART SURGERY HX LAPS SURG CHOLECYSTECTOMY W/CHOLANGIOGRAPHY 06/16/2009 VASCULAR SURGERY PROCEDURE FAMILY HISTORY Problem Relation Age of Onset Hypertension Mother Heart Brother Lipids Brother Social History Tobacco Use Smoking status: Never Smokeless tobacco: Former Types: Chew Substance Use Topics Alcohol use: Yes Comment: 1x/month beer Drug use: No Current Meds blood sugar diagnostic (TRUE METRIX GLUCOSE TEST STRIP) test strip 1X/DAY metFORMIN ER (GLUCOPHAGE XR) 500 mg 24 hr tablet TAKE 2 TABLETS BEFORE BREAKFAST AND SUPPER lisinopril (ZESTRIL, PRINIVIL) 10 mg tablet Take 10 mg by mouth once daily. lancets (ULTRA THIN LANCETS) 30 gauge 1x/day METOPROLOL TARTRATE ORAL Take by mouth. Blood-Glucose Meter monitoring kit For monitoring sugars 1x/day atorvastatin (LIPITOR) 40 mg tablet phenytoin ER (DILANTIN) 100 mg ER capsule Take by mouth. 200mg every morning; PM dose alternates between 100mg and 200mg every other day. ASPIRIN ORAL Take 81 mg by mouth once daily. DOCOSAHEXANOIC ACID/EPA (FISH OIL ORAL) Take by mouth. MULTIVITAMIN TAB Take one(1) tablet daily. Objective There were no vitals taken for this visit. Physical Exam documented in this encounterRegency Hospital [facility]08-18-2022 Miscellaneous Notes* Telephone Encounter - Ginette Rios - 05/25/2022 10:04 AM EDT Pt has been scheduled for 08-17-22 3:30 pm and added to waitlist. Thank you Ginette Rios May 25, 2022 10:05 AM documented in this encounterRegency Hospital [facility]07-21-2022 Miscellaneous Notes* Telephone Encounter - Sneha Rascon Ma - 04/27/2022 10:19 AM EDT RAE 02/17/2022 NOV 05/30/2022 Pharmacy electronically requesting refills as follows: Pending Prescriptions Disp Refills METFORMIN ER 500 MG TABLET,EXTENDED RELEASE 24 HR 360 tablet 1 Sig: TAKE 2 TABLETS BEFORE BREAKFAST AND SUPPER SUREKHA: No Please review and advise. Sneha Rascon CMA documented in this encounterRegency Hospital [facility]05-17-2022 Miscellaneous Notes* Telephone Encounter - Ginette Rios - 02/21/2022 11:50 AM EDT Pt is scheduled for 05-30-2022 at 3:00 pm. Thank you Ginette Rios February 21, 2022 11:50 AM * Telephone Encounter - Ana Hussein APRN.CNP - 02/17/2022 2:32 PM EDT Distance health visit completed. Please call patient and help them set up a "in office visit" in 3 months. Please call patient, review message, then sign encounter. documented in this encounterRegency Hospital [facility]05-13-2022 History of Present illness Narrative* Ana Hussein BLUEPRINT PROCESSOR.HOUSE PAINTER - 02/17/2022 2:21 PM EDT Subjective Virtual Visit Progress Note This is a Virtual encounter initiated for an established patient, parent or guardian not originating from a related Evaluation & Management service provided within the previous 7 days nor leadingto an Evaluation & Management service or procedure within the next 24 hours or soonest available appointment. This Team Access Model visit is a virtual encounter. It required patient- provider interaction for the medical decision making as documented below. Byron Rodríguez has consented to this Virtual encounter. Persons Present: Byron Devries Katina Chief Complaint/Reason: Diabetes Follow-up Visit Date of encounter: 02/17/2022 Byron Rodríguez (1955), is a 66 year old male who presents for Diabetes management Important Lab History: HBA1C: 07/2016: 6.1%, 08/2016: 6.8%, 05/2017: 6%, 07/2017: 6.8%, 11/2017: 6.6%, 02/2018: 6.5%, 07/2018: 6.2%, 12/2018: 6%, 03/2019: 6.3%, 10/2019: 6.6%, 03/2020: HbA1C 6.2%. 07/2020: 6.3%, 01/2021: HbA1C 6.3%, 02/2021: 6.4%, 09/13/2021: 7.1%, 02/13/2022: HbA1C 6.6% Thyroid Function Testin05/2017: TSH 1.500 (0.358-3.740 uIU/mL), free T4 0.89 (0.76-1.46 ng/dL), 07/2018: TSH 1.94 (0.358-3.74 uIU/mL), free T4 0.94 (0.76- 1.46), 03/2019: TSH 1.57 (0.358-3.74 uIU/mL), free T4 0.88 (0.76-1.46), 03/2020: TSH 1.78 (0.358-3.74), free T4 0.90 (0.76-1.46), 01/2021: TSH 2.89 (0.358-3.74), 10/2021: TSH 1.87 (0.358-3.74), free T4 1.0 (0.76-1.46) Renal Function Testin08/2016: Creatinine 0.72, 05/2017: creatinine 0.67 mg/dL, eGFR>60, 02/2018: Creatinine 0.65, 07/2018: Creatinine 0.82, 03/2019: Creatinine 0.67, 03/22/2020: Creatinine 0.72, 07/2020: Creatinine 0.71, 01/20/2021: Creatinine 0.7, 10/2021: Creatinine 0.71 Urine for Microalbumin: 05/2017: microalbumin to creatinine ratio ok, 07/2018: Microalbumin:Creatinine Ratio ok, 03/2019: Microalbumin:Creatinine Ratio ok, 03/2020: Microalbumin:Creatinine Ratio ok, 02/2021: Microalbumin:Creatinine Ratio ok, 10/27/2021: Microalbumin:Creatinine Ratio ok Lipid Profile: 08/2016: TC 169, HDL 61, LDL 96 TG 58, 02/2018: TC 119, HDL 48, LDL 55, TG 78, 10/24/2018: TC 104 HDL 47 LDL 47 TG 52, 07/31/19: TC 104 HDL 52 LDL 45 TG 33, 03/2020: TC 126 HDL 56 LDL 61 TG 43, 11/02/2020: TC 110 HDL 54 LDL 49 TG 37, 10/2021: TC 115 HDL HDL 52 LDL 53 TG 48 Liver Profile: 05/2017: Liver function tests ok, 02/2018: AST 83 (9-37 U/L), ALT, Alkaline Phosphatase ok, 07/2018: LFTS ok, 03/2019: LFTS ok, 03/2020: LFTS ok, 07/2020: AST ALT Alkaline Phosphatase ok, 10/2020: AST ALT Alkaline Phosphatase ok, 01/2021: AST ALT Alkaline Phosphatase ok, 10/2021: AST ALT Alkaline Phosphatase ok Dilated Eye Exam: Patient [...] (CHERYL-65) antibody <5 0 (<5.0 IU/mL), insulin autoantibody<0.4 (<0.4 U/mL), IA-2 antibody <0.6 (<1.0 U/mL), testing done at [facility]. 05/2017: c-peptide 3.6 (0.8-3.2 ng/mL) with glucose 100 mg/dL, Note (history): started on Januvia when in the hospital. Glucose is stable now, no significant low blood sugars. Has a history of pancreatitis-gall bladder induced per patient. I reviewed the association with pancreatitis and that class of drug. I reviewed signs of pancreatitis and when to go to ER. Patient elects to remain on the drug for now 12/2018: trialing discontinuation of Januvia, HbA1C is 6% and this is a higher copay drug for Brayan. Previous diabetes related labs from [facility] reviewed prior to today's office visit. Any changes made at our last diabetes management visit were abstracted accordingly (if applicable). Today's Office Visit: Lipids: on statin BEE/ARB: now on Cardiology: following: Orals: Metformin 500 mg ER two tabs twice a day "self monitoring blood glucose data": states not testing too much, when testing reading mid 100s. Diet: watching Exercise: occasional, just hiked 5 miles. Denies frequent periods of hypoglycemia VITAMIN B12 03/03/2021: vitamin b12 398 (211-911), folate ok I reviewed and updated the below Review of Systems for today's office visit. Review of Systems Respiratory: Negative for shortness of breath. Cardiovascular: Negative for chest pain. Gastrointestinal: Negative for abdominal pain and blood in stool. Genitourinary: Negative for hematuria. Musculoskeletal: Negative for falls. Neurological: Negative for loss of consciousness. 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 Seizures (HCC) Type 2 diabetes mellitus with hyperglycemia (HCC) PAST SURGICAL HISTORY Procedure Laterality Date ABDOMINAL SURGERY HX COLONOSCOPY FLX DX W/COLLJ SPEC WHEN PFRMD 04/15/2008 COLONOSCOPY FLX DX W/COLLJ SPEC WHEN PFRMD 05/31/2021 CORONARY ARTERY BYPASS GRAFT 02/18/2018 x4 ESOPHAGOGASTRODUODENOSCOPY TRANSORAL DIAGNOSTIC 05/31/2021 HEART SURGERY HX LAPS SURG CHOLECYSTECTOMY W/CHOLANGIOGRAPHY 06/16/2009 VASCULAR SURGERY PROCEDURE FAMILY HISTORY Problem Relation Age of Onset Hypertension Mother Heart Brother Lipids Brother Social History Tobacco Use Smoking status: Never Smoker Smokeless tobacco: Former User Types: Chew Substance Use Topics Alcohol use: Yes Comment: 1x/month beer Drug use: No Current Meds lisinopril (ZESTRIL, PRINIVIL) 10 mg tablet Take 10 mg by mouth once daily. lancets (ULTRA THIN LANCETS) 30 gauge 1x/day metFORMIN ER (GLUCOPHAGE XR) 500 mg 24 hr tablet TAKE 2 TABLETS BEFORE BREAKFAST AND BEFORE SUPPER METOPROLOL TARTRATE ORAL Take by mouth. blood sugar diagnostic (TRUE METRIX GLUCOSE TEST STRIP) test strip FOR MONITORING SUGARS 1X/DAY Blood-Glucose Meter monitoring kit For monitoring sugars 1x/day atorvastatin (LIPITOR) 40 mg tablet phenytoin ER (DILANTIN) 100 mg ER capsule Take by mouth. 200mg every morning; PM dose alternates between 100mg and 200mg every other day. ASPIRIN ORAL Take 81 mg by mouth once daily. DOCOSAHEXANOIC ACID/EPA (FISH OIL ORAL) Take by mouth. MULTIVITAMIN TAB Take one(1) tablet daily. Objective There were no vitals taken for this visit. Physical Exam This was a telephone or virtual office visit. No physical examination was able to be performed. ASSESSMENT/PLAN: 1. Type 2 diabetes mellitus with hyperglycemia, without long-term current use of insulin (HCC) - ICD9: 250.00, 790.29, ICD10: E11.65 DISTANCE HEALTH VISIT This Team Access Model visit is a virtual encounter. It required patient- provider interaction for the medical decision making as documented below. Plan of Care: 1. HbA1C 6.6%. 2. Can continue current diabetes medications and dosages for now. 3. Total time for today's distance office visit was greater than 23 minutes including chart review,preparation, and decision making. Greater than 50% of the time was spent in counseling and/or coordination of care. 4. Answered all questions. 5. Patient verbalized understanding of all the above instructions. Ana Hussein APRN.KAVYA documented in this encounterRegency Hospital [facility]04-25-2022 Miscellaneous Notes* Telephone Encounter - Sada Williamson - 01/30/2022 10:48 AM EDT Lab order has been mailed. Sada Williamson January 30, 2022 10:48 AM * Telephone Encounter - Ana Hussein APRN.CNP - 01/30/2022 10:08 AM EDT Staff: please mail lab ordered today to patient. HbA1C Sign off encounter when done. documented in this encounterRegency Hospital [place]05-14-2018 Evaluation note* Diagnosis Onset Date Resolution Status Essential hypertension chron ic Hyperlipidemia chronic H/O coronary artery bypass surgery February 18, 2018 resolved [facility] Work Phone: Evaluation note* Diagnosis Type 2 diabetes mellitus with hyperglycemia, without long-term current use of insulin (HCC)- [facility] Diagnosis Type 2 diabetes mellitus with hyperglycemia, without long-term current use of insulin (HCC)- Primary [facility] noteNo assessment information availableWGood [facility] Work Phone: Evaluation note* Diagnosis Type 2 diabetes mellitus with hyperglycemia, without long-term current use of insulin (HCC) [facility]* Diagnosis Type 2 diabetes mellitus with hyperglycemia, without long-term current use of insulin (HCC) [facility]* Diagnosis Type 2 diabetes mellitus with hyperglycemia, without long-term current use of insulin (HCC)- [facility] Diagnosis Type 2 diabetes mellitus with hyperglycemia, without long-term current use of insulin (HCC)- Primary [facility] Diagnosis Type 2 diabetes mellitus with hyperglycemia, without long-term current use of insulin (HCC) [facility] Diagnosis Type 2 diabetes mellitus with hyperglycemia, without long-term current use of insulin (HCC) [facility] Diagnosis Type 2 diabetes mellitus with hyperglycemia, without long-term current use of insulin (HCC) [facility] Diagnosis Type 2 diabetes mellitus with hyperglycemia, without long-term current use of insulin (HCC)- Primary [facility] Diagnosis Type 2 diabetes mellitus with hyperglycemia, without long-term current use of insulin (HCC) [facility]* Diagnosis Type 2 diabetes mellitus with hyperglycemia, without long-term current use of insulin (HCC)- Primary [facility]* Diagnosis Type 2 diabetes mellitus with hyperglycemia, without long-term current use of insulin (HCC)- Primary Malaise and fatigue Other malaise and fatigue documented in this encounter [facility] note* Diagnosis Type 2 diabetes mellitus with hyperglycemia, without long-term current use of insulin (HCC)- Primary [facility]* Diagnosis Type 2 diabetes mellitus with hyperglycemia, without long-term current use of insulin (HCC) [facility] Diagnosis Onset Date Resolution Status Admit Date History of coronary artery stent placement acute July 09 10:48am Essential hypertension chronic Oc tober 2024 10:48am Hyperlipidemia chronic July 10:48am Type 2 diabetes mellitus without complications chronic July 10:48am H/O coronary artery bypass surgery February 18, 2018 resolved July 09 10:48am [facility] Work Phone: Reason for referral (narrative)No reason for referral information availableWGood Samaritan Hospital Work Phone: Summary Purpose Family History No Family History Records Found Relationship Condition Age at Onset Recorded Date/T gifty mother Hypertension Unknown brother Coronary artery disease Unknown Presence of stent in coronary artery Unkn own Advance Directives No Advanced Directives Records FoundDocuments on File Type Date 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 Advance Directive(s) 05/31/2021 6:40 AM Advance Directive(s) 05/03/2021 10:08 AM Advance Directive(s) 02/18/2018 1:31 PM Advance Directive Response Recorded Date/ Time Advance Directives Yes January 23, 018 7:04am Living Will No March 21, 2018 2:20pm Power of Event Designer No March 21 2:20pm Advance Directive Response Recorded Date/ Time Advance Directives Yes January 23, 018 6:04am Living Will No March 21, 2018 1:20pm Power of Event Designer No March 21 1:20pm Advance Directive Response Recorded Date/ Time Living Will No March 21, 2018 2:20pm Do you have a Healthcare Power of Event Designer? No March 21, 2018 2:20pm Living Will No October 08 1:41am Do you have a Healthcare Power of Event Designer? No October 08, 2024 1:41am Living Will No September 07 1:28am Do you have a Healthcare Power of Event Designer? No September 07, 2024 1:28am Advance Directives Yes January 23 018 7:04am Advance Directive Response Recorded Date/ Time Living Will No March 21, 2018 2:20pm Do you have a Healthcare Power of Event Designer? No March 21, 2018 2:20pm Living Will No October 08 1:41am Do you have a Healthcare Power of Event Designer? No October 08, 2024 1:41am Advance Directives Yes January 23, 018 7:04am Advance Directive Response Recorded Date/ Time Advance Directives Yes January 23, 018 7:04am Chief Complaint and Reason for Visit Chief Complaint 1 Y FU PRESENCE OF AORTOCORONARY BYPASS, ASHD Amb Documentation Reason for Visit Essential hypertensi on Hyperlipidemia H/O coronary artery bypass surgery Chief Complaint Admit Date PTCA October 06, 2024 10:15am PTCA October 17, 2024 1 0:15am 2 ORDERING MARY October 30, 2024 8 :11am 1 Y FU/MOVED FROM [facility] January 06, 2025 11 :01am Reason for Visit Admit Date History of coronary artery stent placeme nt January 06, 2025 11:01am Essential hypertension January 06, 2025 1 1:01am Hyperlipidemia January 06, 2025 11:0 1am Type 2 diabetes mellitus without complic ations January 06, 2025 11:01am H/O coronary artery bypass surgery January 06, 2025 11:01am Chief Complaint Admit Date PTCA October 17, 2024 1 0:15am 2 ORDERING MARY October 30, 2024 8 :11am 1 Y FU/MOVED FROM [facility] January 06, 2025 11 :01am Chief Complaint Admit Date STOOL SAMPLE INT ORDERS June 11, 025 11:02am Chief Complaint Admit Date STOOL SAMPLE INT ORDERS June 11, 025 11:02am CELIAC PROFILE, CRP June 24, 2025 11:35am Chief Complaint Admit Date STOOL SAMPLE INT ORDERS June 11, 025 11:02am CELIAC PROFILE, CRP June 24, 2025 11:35am 6 M FU July 09, 2025 10 :48am Reason for Visit Admit Date History of coronary artery stent placeme nt July 09, 2025 10:48am Essential hypertension July 09, 2025 10:48am Hyperlipidemia July 09, 2025 10 :48am Type 2 diabetes mellitus without complic ations July 09, 2025 10:48am H/O coronary artery bypass surgery Octob 2024 10:48am Additional Source Comments (unrecognized sect ion and content) No Status Records FoundNo Status Records FoundNo Status Records FoundNo Status Records FoundNo Status Records Found INFORMATION SOURCE (unrecogn ized section and content) DATE CREATED AUTHOR 04/03/2018 [facility] DATE CREATED AUTHOR AUTHOR'S ORGANIZ ATION 01/25/2020 [facility] DATE CREATED AUTHOR 'S ORGANIZ ATION 03/20/2023 [facility] DATE CREATED AUTHOR AUTHOR'S ORGANIZ ATION 07/13/2025 [facility] DATE CREATED AUTHOR AUTHOR'S ORGANIZ ATION 08/15/2025 [facility] Source Comments (unrecognize d section and content) In the event this informatio n is protected by the Federal Confidentiality of Alcohol and Drug Abuse Patient Records regulations: The Federal rules restrict any use of the information to criminally investigate or prosecute any alcohol or drug abuse patient.[facility] the event this information is protected by the Federal Confidentiality of Alcohol and Drug Abuse Patient Records regulations: The Federal rules restrict any use of the information to criminally investigate or prosecute any alcohol or drug abuse patient.[facility] the event this information is protected by the Federal Confidentiality of Alcohol and Drug Abuse Patient Records regulations: The Federal rules restrict any use of the information to criminally investigate or prosecute any alcohol or drug abuse patient.[facility] the event this information is protected by the Federal Confidentiality of Alcohol and Drug Abuse Patient Records regulations: The Federal rules restrict any use of the information to criminally investigate or prosecute any alcohol or drug abuse patient.[facility] the event this information is protected by the Federal Confidentiality of Alcohol and Drug Abuse Patient Records regulations: The Federal rules restrict any use of the information to criminally investigate or prosecute any alcohol or drug abuse patient.[facility] the event this information is protected by the Federal Confidentiality of Alcohol and Drug Abuse Patient Records regulations: The Federal rules restrict any use of the information to criminally investigate or prosecute any alcohol or drug abuse patient.[facility] the event this information is protected by the Federal Confidentiality of Alcohol and Drug Abuse Patient Records regulations: The Federal rules restrict any use of the information to criminally investigate or prosecute any alcohol or drug abuse patient.[facility] the event this information is protected by the Federal Confidentiality of Alcohol and Drug Abuse Patient Records regulations: The Federal rules restrict any use of the information to criminally investigate or prosecute any alcohol or drug abuse patient.[facility] the event this information is protected by the Federal Confidentiality of Alcohol and Drug Abuse Patient Records regulations: The Federal rules restrict any use of the information to criminally investigate or prosecute any alcohol or drug abuse patient.[facility] the event this information is protected by the Federal Confidentiality of Alcohol and Drug Abuse Patient Records regulations: The Federal rules restrict any use of the information to criminally investigate or prosecute any alcohol or drug abuse patient.[facility] the event this information is protected by the Federal Confidentiality of Alcohol and Drug Abuse Patient Records regulations: The Federal rules restrict any use of the information to criminally investigate or prosecute any alcohol or drug abuse patient.[facility] the event this information is protected by the Federal Confidentiality of Alcohol and Drug Abuse Patient Records regulations: The Federal rules restrict any use of the information to criminally investigate or prosecute any alcohol or drug abuse patient.[facility] the event this information is protected by the Federal Confidentiality of Alcohol and Drug Abuse Patient Records regulations: The Federal rules restrict any use of the information to criminally investigate or prosecute any alcohol or drug abuse patient.[facility] the event this information is protected by the Federal Confidentiality of Alcohol and Drug Abuse Patient Records regulations: The Federal rules restrict any use of the information to criminally investigate or prosecute any alcohol or drug abuse patient.[facility] the event this information is protected by the Federal Confidentiality of Alcohol and Drug Abuse Patient Records regulations: The Federal rules restrict any use of the information to criminally investigate or prosecute any alcohol or drug abuse patient.[facility] the event this information is protected by the Federal Confidentiality of Alcohol and Drug Abuse Patient Records regulations: The Federal rules restrict any use of the information to criminally investigate or prosecute any alcohol or drug abuse patient.[facility] the event this information is protected by the Federal Confidentiality of Alcohol and Drug Abuse Patient Records regulations: The Federal rules restrict any use of the information to criminally investigate or prosecute any alcohol or drug abuse patient.[facility] the event this information is protected by the Federal Confidentiality of Alcohol and Drug Abuse Patient Records regulations: The Federal rules restrict any use of the information to criminally investigate or prosecute any alcohol or drug abuse patient.[facility] the event this information is protected by the Federal Confidentiality of Alcohol and Drug Abuse Patient Records regulations: The Federal rules restrict any use of the information to criminally investigate or prosecute any alcohol or drug abuse patient.[facility]edo[facility] the event this information is protected by the Federal Confidentiality of Alcohol and Drug Abuse Patient Records regulations: The Federal rules restrict any use of the information to criminally investigate or prosecute any alcohol or drug abuse patient.[facility] the event this information is protected by the Federal Confidentiality of Alcohol and Drug Abuse Patient Records regulations: The Federal rules restrict any use of the information to criminally investigate or prosecute any alcohol or drug abuse patient.[facility] the event this information is protected by the Federal Confidentiality of Alcohol and Drug Abuse Patient Records regulations: The Federal rules restrict any use of the information to criminally investigate or prosecute any alcohol or drug abuse patient.[facility] the event this information is protected by the Federal Confidentiality of Alcohol and Drug Abuse Patient Records regulations: The Federal rules restrict any use of the information to criminally investigate or prosecute any alcohol or drug abuse patient.[facility] the event this information is protected by the Federal Confidentiality of Alcohol and Drug Abuse Patient Records regulations: The Federal rules restrict any use of the information to criminally investigate or prosecute any alcohol or drug abuse patient.[facility] the event this information is protected by the Federal Confidentiality of Alcohol and Drug Abuse Patient Records regulations: The Federal rules restrict any use of the information to criminally investigate or prosecute any alcohol or drug abuse patient.[facility] the event this information is protected by the Federal Confidentiality of Alcohol and Drug Abuse Patient Records regulations: The Federal rules restrict any use of the information to criminally investigate or prosecute any alcohol or drug abuse patient.[facility] the event this information is protected by the Federal Confidentiality of Alcohol and Drug Abuse Patient Records regulations: The Federal rules restrict any use of the information to criminally investigate or prosecute any alcohol or drug abuse patient.[facility] the event this information is protected by the Federal Confidentiality of Alcohol and Drug Abuse Patient Records regulations: The Federal rules restrict any use of the information to criminally investigate or prosecute any alcohol or drug abuse patient.[facility] the event this information is protected by the Federal Confidentiality of Alcohol and Drug Abuse Patient Records regulations: The Federal rules restrict any use of the information to criminally investigate or prosecute any alcohol or drug abuse patient.[facility]edo[facility] the event this information is protected by the Federal Confidentiality of Alcohol and Drug Abuse Patient Records regulations: The Federal rules restrict any use of the information to criminally investigate or prosecute any alcohol or drug abuse patient.[facility] the event this information is protected by the Federal Confidentiality of Alcohol and Drug Abuse Patient Records regulations: The Federal rules restrict any use of the information to criminally investigate or prosecute any alcohol or drug abuse patient.[facility] the event this information is protected by the Federal Confidentiality of Alcohol and Drug Abuse Patient Records regulations: The Federal rules restrict any use of the information to criminally investigate or prosecute any alcohol or drug abuse patient.[facility] the event this information is protected by the Federal Confidentiality of Alcohol and Drug Abuse Patient Records regulations: The Federal rules restrict any use of the information to criminally investigate or prosecute any alcohol or drug abuse patient.[facility] the event this information is protected by the Federal Confidentiality of Alcohol and Drug Abuse Patient Records regulations: The Federal rules restrict any use of the information to criminally investigate or prosecute any alcohol or drug abuse patient.[facility] the event this information is protected by the Federal Confidentiality of Alcohol and Drug Abuse Patient Records regulations: The Federal rules restrict any use of the information to criminally investigate or prosecute any alcohol or drug abuse patient.[facility] the event this information is protected by the Federal Confidentiality of Alcohol and Drug Abuse Patient Records regulations: The Federal rules restrict any use of the information to criminally investigate or prosecute any alcohol or drug abuse patient.[facility] Care Teams (unrecognized sec tion and content) Chemical Instrumentation Officer Relationship Specialty Start Date End Date Libby Gomez DO [address] [facility] [address] [place], [place] [id number] PCP - General Family Practice 10/21/19 Libby Nichols MD 04/09/17 Justin Leonard [address] [place] [address] [id number] 05/18/17 Bernardo Louis [address] [facility] [address] [place] [address] Cardiology 02/15/18 Chemical Instrumentation Officer Relationship Specialty Start Date End Date Libby Gomez DO [address] [place] [address] [place], [place] [id number] PCP - General Family Practice 10/21/19 Libby Nichols MD 04/09/[address] [address] 05/18/17 Missy, [place] S [address] [place] [address] [place] [address] Cardiology 02/15/18 Chemical Instrumentation Officer Relationship Specialty Start Date End Date Libby Gomez DO [address] [place] [address] PCP - General Family Practice 10/21/19 Libby Nichols MD 04/09/17 Horacio Justin [address] [address] 05/18/17 Missy, Bernardo S [address] [place] [address] [place] [address] Cardiology 02/15/18 Chemical Instrumentation Officer Relationship Specialty Start Date End Date Libby Gomez DO PCP - General Family Practice 10/21/19 Libby Nichols MD 04/09/[address] [address] 05/18/17 Missy, [place] S [address] [place] [address] [place] [address] Cardiology 02/15/18 Chemical Instrumentation Officer Relationship Specialty Start Date End Date Libby Gomez DO PCP - General Family Practice 10/21/19 Libby Nichols MD 04/09/17 Justin Leonard [address] [address] 05/18/17 Missy, Bernardo S [address] [place] [address] [place] [address] Cardiology 02/15/18 Chemical Instrumentation Officer Relationship Specialty Start Date End Date Libby Gomez DO PCP - General Family Practice 10/21/19 Libby Nichols MD 04/09/17 Justin Leonard [address] [place] [address] 05/18/17 Missy, Bernardo S [address] [place] [address] [place] [address] Cardiology 02/15/18 Chemical Instrumentation Officer Relationship Specialty Start Date End Date Libby Gomez DO PCP - General Family Medicine 10/21/19 Libby Nichols MD 04/09/17 LeonardJustin crain [address] [place] [address] 05/18/17 Missy, Bernardo S [address] [place] [address] [place] [address] Cardiology 02/15/18 Chemical Instrumentation Officer Relationship Specialty Start Date End Date Libby Gomez DO PCP - General Family Medicine 10/21/19 Libby Nichols MD 04/09/17 Justin Leonard [address] [place] [address] 05/18/17 ImssyPapito chaseril S [address] [place] [address] [place] [address] Cardiology 02/15/18 Chemical Instrumentation Officer Relationship Specialty Start Date End Date Libby Gomez DO [address] [place] [address] [place] [address] PCP - General Family Medicine 10/21/19 Libby Nichols MD 04/09/17 Justin Leonard [address] [place] [address] [phone] 05/18/17 Papito Louisril S [address] [place] [address] [place] [address] Cardiology 02/15/18 Team Status: Active Member Role Status Dates Dr. Libby Gomez MD Family Provider Active Dr. Juvencio Glez MD Primary Care Provider Active Team Status: Inactive Member Role Status Dates Dr. Libby Gomez MD Referring Provider Active Dr. Bernardo Louis MD Attending Provider Active Dr. Juvencio Glez MD Primary Care Provider Active Team Status: Active Member Role Status Dates Dr. Juvencio Glez MD Primary Care Provider Active Dr. Bernardo Louis MD Attending Provider Active Team Status: Active Member Role Status Dates Dr. Juvencio Glez MD Primary Care Provider Active Libby Fink BOOTH OPERATOR, BOOTH OPERATOR-C Attending Provider Active Team Status: Inactive Member Role Status Dates Dr. Juvencio Glez MD Primary Care Provider Active JUAN PEREZ Attending Provider, Referring Provid er Active Team Status: Inactive Member Role Status Dates Dr. Juvencio Glez MD Primary Care Provider Active Dr. Bernardo Louis MD Attending Provider Active Chemical Instrumentation Officer Relationship Specialty Start Date End Date Libby Gomez DO [address] [place] [address] [place] [address] PCP - General Family Medicine 10/21/19 Libby Nichols MD 04/09/[address] [address] 05/18/17 Missy, [place] S [address] [place] [address] [place] [address] Cardiology 02/15/18 Chemical Instrumentation Officer Relationship Specialty Start Date End Date Libby Gmoez DO [address] [place] [id number] PCP - General Family Medicine 10/21/19 Libby Nichols MD 04/09/[address] [address] 05/18/17 Missy, [place] S [address] [place] [address] Cardiology 02/15/18 Chemical Instrumentation Officer Relationship Specialty Start Date End Date Libby Gomez DO [address] [place] [address] PCP - General Family Medicine 10/21/19 Libby Nichols MD 04/09/[address] [address] 05/18/17 Missy, Bernardo S [address] [place] [address] Cardiology 02/15/18 Chemical Instrumentation Officer Relationship Specialty Start Date End Date Libby Gomez DO [address] [place] [address] PCP - General Family Medicine 10/21/19 Libby Nichols MD 04/09/17 Justin Leonard [address] [place] [address] 05/18/17 Missy, [place] S [address] [place], [place] [phone] Cardiology 02/15/18 Chemical Instrumentation Officer Relationship Specialty Start Date End Date Libby Gomez DO [address] [place] [address] PCP - General Family Medicine 10/21/19 Libby Nichols MD 04/09/17 Justin Leonard [address] [place] [address] 05/18/17 Missy, [place] S [address] [place], [place] [phone] Cardiology 02/15/18 Team Status: Inactive Member Role Status Dates Dr. Juvencio Glez MD Primary Care Provider, Attending Provider Active Chemical Instrumentation Officer Relationship Specialty Start Date End Date Juvencio Glez MD [address] [place] [address] [address] [place], [place] [id number] PCP - General Family Medicine 07/10/23 Libby Nichols MD 04/09/17 Justin Lenoard, OD [address] [place] [id number] 05/18/17 Bernardo Louis MD [address] [address] [place] [address] Cardiology 02/15/18 Chemical Instrumentation Officer Relationship Specialty Start Date End Date Juvencio Glez MD [address] [facility] [address] [place] [address] PCP - General Family Medicine 07/10/23 Libby Nichols MD 04/09/17 Justin Leonard, OD [address] [place] [id number] 05/18/17 Bernardo Louis MD [address] [facility] [address] [place] [address] Cardiology 02/15/18 Chemical Instrumentation Officer Relationship Specialty Start Date End Date Juvencio Glez MD [address] [facility] [address] [place] [address] PCP - General Family Medicine 07/10/23 Libby Nicohls MD 04/09/17 Justin Leonard, OD [address] [place] [address] [id number] 05/18/17 Bernardo Louis MD [address] [place] [address] Cardiology 02/15/18 Chemical Instrumentation Officer Relationship Specialty Start Date End Date Juvencio Glez MD [address] [facility] [address] [place] [address] PCP - General Family Medicine 07/10/23 Libby Nichols MD 04/09/17 Justin Leonard, OD [address] [place] [id number] 05/18/17 Bernardo Louis MD [address] [address] Cardiology 02/15/18 Chemical Instrumentation Officer Relationship Specialty Start Date End Date Juvencio Glez MD [address] [place] [address] [address] [place] [address] PCP - General Family Medicine 07/10/23 Libby Nichols MD 04/09/17 Justin Leonard, OD [address] [place] [id number] 05/18/17 Bernardo Louis MD [address] [place] [address] Cardiology 02/15/18 Chemical Instrumentation Officer Relationship Specialty Start Date End Date Juvencio Glez MD [address] [facility] [address] [place] [address] PCP - General Family Medicine 07/10/23 Libby Nichols MD 04/09/17 Justin Leonard, OD [address] [place] [phone] 05/18/17 Bernardo Louis MD [address] [place] [address] Cardiology 02/15/18 Chemical Instrumentation Officer Relationship Specialty Start Date End Date Juvencio Glez MD [address] [facility] [address] [place] [address] PCP - General Family Medicine 07/10/23 Libby Nichols MD 04/09/17 Justin Leonard, OD [address] [place] [address] 97[address] 05/18/17 Bernardo Luois MD [address] [place] [address] Cardiology 02/15/18 Chemical Instrumentation Officer Relationship Specialty Start Date End Date Juvencio Glez MD [address] [facility] [address] [place] [address] PCP - General Family Medicine 07/10/23 Libby Nichols MD 04/09/17 Justin Leonard OD [address] [place] [phone] 05/18/17 Bernardo Louis MD [address] [place] [address] Cardiology 02/15/18 Chemical Instrumentation Officer Relationship Specialty Start Date End Date Juvencio Glez MD [address] [place] [address] [address] [place] [address] PCP - General Family Medicine 07/10/23 Libby Nichols MD 04/09/17 Justin Leonard, OD [address] [place] [phone] 05/18/17 Bernardo Louis MD [address] [address] Cardiology 02/15/18 Chemical Instrumentation Officer Relationship Specialty Start Date End Date Juvencio Glez MD [address] [place] [address] [address] [place] [address] PCP - General Family Medicine 07/10/23 Libby Nichols MD 04/09/17 Justin Leonard, OD [address] [place] [address] [id number] 05/18/17 Bernardo Louis MD [address] [facility] [address] [place], [place] [id number] Cardiology 02/15/18 Chemical Instrumentation Officer Relationship Specialty Start Date End Date Juvencio Glez MD [address] [place] [address] [address] [place], [place] [address] PCP - General Family Medicine 07/10/23 Libby Nichols MD 04/09/17 Justin Leonard OD [address] [place] [address] [phone] 05/18/17 Bernardo Louis MD [facility] [address] [place], [place] [id number] Cardiology 02/15/18 Team Status: Active Member Role Status Dates Dr. Juvencio Glez MD Primary Care Provider Active Team Status: Inactive Member Role Status Dates Dr. Juvencio Glez MD Primary Care Provider Active Start: October 06, 2024 End: October 07, 2024 Dr. Suzette Hankins MD Attending Provider Active Start: October 06, 2024 End: October 07, 2024 Dr. Suzette Hankins MD Referring Provider Active Start: October 06, 2024 End: October 07, 2024 Team Status: Inactive Member Role Status Dates Dr. Juvencio Glez MD Primary Care Provider Active Start: October 17, 2024 End: November 07, 2024 Dr. Suzette Hankins MD Attending Provider Active Start: October 17, 2024 End: November 07, 2024 Dr. Suzette Hankins MD Referring Provider Active Start: October 17, 2024 End: November 07, 2024 Team Status: Inactive Member Role Status Dates Dr. Juvencio Glez MD Primary Care Provider Active Start: October 30, 2024 End: October 30, 2024 Dr. Juvencio Glez MD Attending Provider Active Start: October 30, 2024 End: October 30, 2024 Dr. Juvencio Glez MD Referring Provider Active Start: October 30, 2024 End: October 30, 2024 JUAN PEREZ Other Provider Active Start: J an2024 End: October 30, 2024 Team Status: Inactive Member Role Status Dates Dr. Juvencio Glez MD Primary Care Provider Active Start: January 06, 2025 End: January 06, 2025 Dr. Juvencio Glez MD Referring Provider Active Start: January 06, 2025 End: January 06, 2025 Libby Fink BOOTH OPERATOR, BOOTH OPERATOR-C Attending Provider Active S tart: January 06, 2025 End: January 06, 2025 Team Status: Inactive Member Role Status Dates Dr. Juvencio Glez MD Primary Care Provider Active Start: January 29, 2025 End: January 29, 2025 JUAN PEREZ Attending Provider Active Star t: January 29, 2025 End: January 29, 2025 JUAN PEREZ Referring Provider Active Star t: January 29, 2025 End: January 29, 2025 Team Status: Inactive Member Role Status Dates Dr. Juvencio Glez MD Primary Care Provider Active Start: February 05, 2025 End: February 05, 2025 Dr. Juvencio Glez MD Attending Provider Active Start: February 05, 2025 End: February 05, 2025 Dr. Juvencio Glez MD Referring Provider Active Start: February 05, 2025 End: February 05, 2025 Chemical Instrumentation Officer Relationship Specialty Start Date End Date Juvencio Glez MD [address] [facility] [address] [place] [address] PCP - General Family Medicine 07/10/23 Libby Nichols MD 04/09/17 Justin Leonard OD [address] [place] [address] [phone] 05/18/17 Bernardo Louis MD [address] [facility] [address] [place], [place] [id number] Cardiology 02/15/18 Chemical Instrumentation Officer Relationship Specialty Start Date End Date Juvencio Glez MD [address] [place] [address] [address] [place], [place] [id number] PCP - General Family Medicine 07/10/23 Libby Nichols MD 04/09/17 Justin Leonard OD [address] [place] [phone] 05/18/17 Bernardo Louis MD [address] [facility] [address] [place], [place] [id number] Cardiology 02/15/18 Team Status: Active Member Role/Relationship Status Dates Dr. Juvencio Glez MD Primary Care Provider Active Team Status: Inactive Member Role/Relationship Status Dates Dr. Juvencio Glez MD Primary Care Provider Active Start: June 09, 2025 End: June 09, 2025 ASHELY Levine Attending Provider Active Start: June 09, 2025 End: June 09, 2025 ASHELY Levine Referring Provider Active Start: June 09, 2025 End: June 09, 2025 Team Status: Active Member Role/Relationship Status Dates Dr. Juvencio Glez MD Primary Care Provider Active Start: June 11, 2025 Dr. Juvencio Glez MD Attending Provider Active Start: June 11, 2025 Dr. Juvencio Glez MD Referring Provider Active Start: June 11, 2025 Team Status: Inactive Member Role/Relationship Status Dates Dr. Juvencio Glez MD Primary Care Provider Active Start: June 11, 2025 End: June 11, 2025 Dr. Juvencio Glez MD Attending Provider Active Start: June 11, 2025 End: June 11, 2025 Dr. Juvencio Glez MD Referring Provider Active Start: June 11, 2025 End: June 11, 2025 Chemical Instrumentation Officer Relationship Specialty Start Date End Date Juvencio Glez MD [address] [facility] [address] [place] [address] PCP - General Family Medicine 07/10/23 Libby Nichols MD 04/09/17 Justin Leonard OD [address] [place] [phone] 05/18/17 [place] [address] [place] [address] [address] [place], [place] [id number] Cardiology 02/15/18 Team Status: Active Member Role/Relationship Status Dates Dr. Juvencio Glez MD Primary care physician Active Team Status: Inactive Member Role/Relationship Status Dates Dr. Juvencio Glez MD Primary care physician Active Start: June 09, 2025 End: June 09, 2025 ASHELY Levine Attending physician Active Start: June 09, 2025 End: June 09, 2025 ASHELY Levine Referring Provider Active Start: June 09, 2025 End: June 09, 2025 Team Status: Inactive Member Role/Relationship Status Dates Dr. Juvencio Glez MD Primary care physician Active Start: June 11, 2025 End: June 11, 2025 Dr. Juvencio Glez MD Attending physician Active Start: June 11, 2025 End: June 11, 2025 Dr. Juvencio Glez MD Referring Provider Active Start: June 11, 2025 End: June 11, 2025 Team Status: Inactive Member Role/Relationship Status Dates Dr. Juvencio Glez MD Primary care physician Active Start: June 24, 2025 End: June 24, 2025 Dr. Kade Curtis MD Attending physician Active Start: June 24, 2025 End: June 24, 2025 Dr. Kade Curtis MD Referring Provider Active Start: June 24, 2025 End: June 24, 2025 Team Status: Inactive Member Role/Relationship Status Dates Dr. Juvencio Glez MD Primary care physician Active Start: July 09, 2025 End: July 09, 2025 Dr. Juvencio Glez MD Referring Provider Active Start: July 09, 2025 End: July 09, 2025 Libby Fink BOOTH OPERATOR, BOOTH OPERATOR-C Attending physician Active Start: July 09, 2025 End: July 09, 2025 Reason for Visit (unrecogniz ed section and content) Reason Comments Diabetes Reason Comments Future Appointment Reason Comments Refill Request Metformin Reason Comments Refill Request Reason Comments Refill Request Metformin Reason Comments Med Change Request testing supplies Reason Comments Results Labs Reason Comments Results, Lab Goals (unrecognized section and content) Goals may be documented in a n alternate sectionGoals may be documented in an alternate sectionGoals may be documented in an alternate sectionGoals may be documented in an alternate sectionGoals may be documented in an alternate sectionGoals may be documented in an alternate sectionGoals may be documented in an alternate sectionGoals may be documented in an alternate sectionGoals may be documented in an alternate sectionGoals may be documented in an alternate section FOR RECORDS PERTAINING TO PATIENTS WHO ARE OR HAVE BEEN ENROLLED IN A CHEMICAL DEPENDENCY/SUBSTANCEABUSE PROGRAM, SOME INFORMATION MAY BE OMITTED. This clinical summary was aggregated from multiple sources. Caution should be exercised in using it in the provision of clinical care. This summary normalizes information from multiple sources, and as a consequence, information in this document may materially change the coding, format and clinical context of patient data. In addition, data may be omitted in some cases. CLINICAL DECISIONS SHOULD BE BASED ON THE PRIMARY CLINICAL RECORDS. [employer] provides no warranty or guarantee of the accuracy or completeness of information in this document.
[2025-08-25 10:30] LABS: AST(SGOT) 27 U/L (<=37); Alanine Aminotransfer ALT/SGPT 39 U/L (<=46); Albumin, Serum 4.4 g/dL (3.4-4.8); Alkaline Phosphatase 79 U/L (40-129); Anion Gap 9 (5-15); BUN 12 mg/dL (4-19); BUN/Creat Ratio 17.8 RATIO (10-20); Calcium,Total 9.3 mg/dL (7.6-11.0); Carbon Dioxide 28.8 mmol/L (21.0-32.0); Chloride 101 mmol/L (98-108); Cholesterol 117 mg/dL (<=200); Globulin 2.1 g/dL (2.2-4.2); Glucose 149 mg/dL (70-99); Low Density Lipoprotein Calc. 47 mg/dL; Potassium 4.2 mmol/L (3.3-5.1); Triglycerides 46 mg/dL; Very Low Density Lipoprotein 9 mg/dL (5-40); cholesterol:hdl ratio screen 1.98
== END | disposition home or self-care (01) ==
LOC: MTLAB 07:52
PROVIDERS: PCP Family Medicine; Referring Provider Family Medicine; Visit Provider Family Medicine
DX: R56.9 Unspecified convulsions (principal); E11.9 Type 2 diabetes mellitus without complications
CPT/HCPCS: 36415; 80053; 80061; 80185